=== PATIENT | male | born 1955 | race Caucasian/White ===

== ENCOUNTER 2018-05-24 22:15 | Emergency (ER) | payer MEDICARE, OTHER ==
[~2018-05-24] VITALS: Ht 167.6 cm; Wt 90.7 kg
[2018-05-24 23:53] VITALS: BP 108/64
[2018-05-25 00:12] LABS: APPEARANCE,URINE CLEAR; BILIRUBIN, URINE NEGATIVE (NEGATIVE); COLOR,URINE PALE YELLOW; GLUCOSE, URINE (UA) NEGATIVE (NEGATIVE); KETONES,URINE NEGATIVE (NEGATIVE); NITRITE,URINE NEGATIVE (NEGATIVE); PH,URINE 7 (4.5-8.0); PROTEIN,URINE NEGATIVE (NEGATIVE); UROBILINOGEN,URINE NORMAL MG/DL (0.0-1.0)
[2018-05-25 00:17] LABS: LEUKOCYTE ESTERASE ,URINE NEGATIVE (NEGATIVE)
--- NOTE | 2018-05-25 02:32 | Emergency Room Report ---
History of Present Illness General Chief Complaint: Male Urogenital Problems Source: Patient, Medical Record, EMS Present Illness HPI This is a 62-year-old male who has a psych history. He also history of asthma. Patient presents with chief complaint of abdominal pain and painful urination. Onset yesterday. He said he had a couple episode vomiting. No diarrhea or bowel movement today. He said yesterday hurts when he urinates. Denies any fever or chills. Pain is to the side and crampy in nature. Allergies: Coded Allergies: CHLORPROMAZINE (Unverified Allergy, Unknown, 05/24/18) CLOZAPINE (Unverified Allergy, Unknown, 05/24/18) DIVALPROEX SODIUM (Unverified Allergy, Unknown, 05/24/18) HALOPERIDOL (Unverified Allergy, Unknown, 05/24/18) SERTRALINE (Unverified Allergy, Unknown, 05/24/18) Patient History Past Medical History: see triage record, old chart reviewed, asthma, psych hx Past Surgical History: other Pertinent Family History: none Social History: Denies: smoking Immunizations: other Reviewed Nursing Documentation: PMH: Agreed; PSxH: Agreed Nursing Documentation-PMH Past Medical History: No History, Except For Hx Asthma: Yes Hx Seizures: Yes Review of Systems Eye: Denies: eye pain, blurred vision ENT: Denies: ear pain, nose congestion, throat swelling Respiratory: Denies: cough, shortness of breath Cardiovascular: Denies: chest pain, palpitations Gastrointestinal: Reports: abdominal pain, nausea, vomiting; Denies: diarrhea Musculoskeletal: Denies: back pain, joint pain Skin: Denies: rash Neurological: Denies: headache, numbness Endocrine: Denies: increased thirst, increased urine Hematologic/Lymphatic: Denies: easy bruising All Other Systems: negative except mentioned in HPI Physical Exam Vital Signs Date Time Temp Pulse Resp B/P (MAP) Pulse Ox O2 Delivery O2 Flow Rate FiO2 05/24/18 22:02 98.2 98 18 108/64 97 Room Air 98.2 vitals normal Sp02 EP Interpretation: reviewed, normal General Appearance: well appearing, no apparent distress, alert Head: normocephalic, atraumatic Eyes: bilateral eye PERRL, bilateral eye EOMI ENT: hearing grossly normal, normal pharynx Neck: full range of motion, supple, no meningismus Respiratory: chest non-tender, lungs clear, normal breath sounds Cardiovascular #1: regular rate, rhythm, no murmur Gastrointestinal: normal bowel sounds, non tender, no mass, no organomegaly, no bruit, non-distended Musculoskeletal: back normal, gait/station normal, normal range of motion Psychiatric: mood/affect normal Skin: warm/dry Medical Decision Making Diagnostic Impression: Primary Impression: Enteritis ER Course Patient with abdominal pain and vomiting. Most likely had enteritis from a viral infection. He felt better now. No longer vomiting. No urinary tract infection. We'll discharge back to half-way. CT/MRI/US Diagnostic Results CT/MRI/US Diagnostic Results : Imaging Test Ordered: CT abdomen and pelvis Impression Read by radiologist. Fluid in the colon. No inflammatory processes. No free air. Last Vital Signs Date Time Temp Pulse Resp B/P (MAP) Pulse Ox O2 Delivery O2 Flow Rate FiO2 05/24/18 23:53 98.2 98 18 108/64 97 Room Air 98.2 Status: improved Disposition: XFER SNF Condition: Stable Additional Instructions: Increase fluid. Follow-up with your doctor in 7 days. Return of worse. SALLIE HENDERSON M.D. May 25, 2018 02:32
[2018-05-25 02:53] VITALS: BP 126/64
[2018-05-25 03:00] VITALS: BP 126/64
--- NOTE | 2018-05-25 10:26 | Diagnostic Imaging Report ---
Indication: Abdominal pain Technique: Noncontrast CT of the abdomen and pelvis utilizing automated exposure control. Axial, sagittal and coronal reformats presented. CT dose: Total DLP 951.72 mGycm; CTDI vol 16.58 mGy Comparison: None Findings: Please note that evaluation of the abdominal and pelvic viscera and vascular structures is limited without the use of intravenous and oral contrast. Within these limitations the following observations are made: Emphysematous changes noted in the lower lungs with some small pneumatoceles. No focal airspace consolidation suggest pneumonia. No pleural effusion or pneumothorax. Heart size within normal limits. There is a small hiatal hernia. Noncontrast evaluation of the liver, gallbladder, spleen, adrenal glands and pancreas is grossly unremarkable. Multiple low-attenuation lesions are noted in the bilateral kidneys represent cysts. No evidence of hydronephrosis or urinary tract stone bilaterally. Bladder is grossly unremarkable. Some central calcifications noted in the prostate. There is no free intraperitoneal air or fluid. No evidence of bowel obstruction. Appendix is normal. Some fluid attenuation is noted within the colon which is nonspecific but may potentially be related to a diarrheal illness. There is a small fat-containing umbilical hernia and small bilateral fat-containing inguinal hernias, right greater than left. Abdominal aorta appears normal in caliber with scattered atherosclerotic calcifications. No appreciable pathologically enlarged adenopathy. There is multilevel degenerative change of the thoracolumbar spine. There is bilateral spondylolysis at L5 which appears chronic. IMPRESSION: Limited exam without intravenous and oral contrast. Within these limitations: * No evidence of hydronephrosis, perinephric stranding or definite urinary tract stone bilaterally. * Multiple low-density lesions in the kidneys possibly representing simple. Evaluation is limited without contrast. Recommend further evaluation with contrast-enhanced exam or renal ultrasound. * Fluid noted in portions of the colon. Findings nonspecific but may potentially be related to a diarrheal illness. Correlate clinically. * Emphysematous changes noted in the visualized lung bases. * Small hiatal hernia. Additional incidental findings as above. This corresponds with the statrad preliminary report. The CT scanner at [facility] is accredited by the [employer] and the scans are performed using protocols designed to limit radiation exposure to as low as reasonably achievable to attain images of sufficient resolution adequate for diagnostic evaluation.
[2018-05-26] MEDS ORDERED: ZOFRAN4 MG ORAL (06:45)
== END 2018-05-25 03:00 ==
LOC: EDBD 22:15 → EMR 23:55
DX: K52.9 Noninfective gastroenteritis and colitis, unspecified (principal); J45.909 Unspecified asthma, uncomplicated; Z88.8 Allergy status to other drugs, medicaments and biological substances
CPT/HCPCS: 74176; 81003; 99284

== ENCOUNTER 2018-05-26 04:06 | Emergency (ER) | payer MEDICARE, OTHER ==
[~2018-05-26] VITALS: Ht 177.8 cm; Wt 86.2 kg
--- NOTE | 2018-05-26 04:16 | Emergency Room Report ---
History of Present Illness General Chief Complaint: Nausea Source: Patient Present Illness HPI Is a 62-year-old male with psychiatric history. [facility] He presents with chief complaint of vomiting. He was here yesterday and CT scan showed enteritis. No evidence of any infection. He is not getting better. He thinks that the poisoning his food. Denies any diarrhea. Some mild crampy pain. [place] weak. Denies any other complaint. Allergies: Coded Allergies: CHLORPROMAZINE (Unverified Allergy, Unknown, 05/24/18) CLOZAPINE (Unverified Allergy, Unknown, 05/24/18) DIVALPROEX SODIUM (Unverified Allergy, Unknown, 05/24/18) HALOPERIDOL (Unverified Allergy, Unknown, 05/24/18) SERTRALINE (Unverified Allergy, Unknown, 05/24/18) Patient History Past Medical History: see triage record, old chart reviewed Past Surgical History: none Pertinent Family History: none Social History: Denies: smoking Immunizations: other Reviewed Nursing Documentation: PMH: Agreed; PSxH: Agreed Nursing Documentation-PMH Hx Asthma: Yes Hx Seizures: Yes Review of Systems Eye: Denies: eye pain, blurred vision ENT: Denies: ear pain, nose congestion, throat swelling Respiratory: Denies: cough, shortness of breath Cardiovascular: Denies: chest pain, palpitations Gastrointestinal: Reports: abdominal pain, nausea, vomiting; Denies: diarrhea Musculoskeletal: Denies: back pain, joint pain Skin: Denies: rash Neurological: Denies: headache, numbness Endocrine: Denies: increased thirst, increased urine Hematologic/Lymphatic: Denies: easy bruising All Other Systems: negative except mentioned in HPI Physical Exam Vital Signs Date Time Temp Pulse Resp B/P (MAP) Pulse Ox O2 Delivery O2 Flow Rate FiO2 05/26/18 04:07 97.5 78 16 129/88 96 Room Air 97.5 vitals unremarkable Sp02 EP Interpretation: reviewed, normal General Appearance: well appearing, no apparent distress, alert Head: normocephalic, atraumatic Eyes: bilateral eye PERRL, bilateral eye EOMI ENT: hearing grossly normal, normal pharynx Neck: full range of motion, supple, no meningismus Respiratory: chest non-tender, lungs clear, normal breath sounds Cardiovascular #1: regular rate, rhythm, no murmur Gastrointestinal: non tender, no mass, no organomegaly, no bruit, non-distended , abnormal bowel sounds Musculoskeletal: back normal, gait/station normal, normal range of motion Psychiatric: mood/affect normal Skin: warm/dry Medical Decision Making Diagnostic Impression: Primary Impression: Nausea and vomiting in adult patient Additional Impression: Acute hyponatremia ER Course Patient presents with vomiting. He insists that he is being poisoned. Labs unremarkable except for some low sodium. IV fluid given. He is much calmer after Ativan. No evidence of any obstruction. CT scan show fluid in the colon probably indicating an enteritis. He is otherwise stable. No vomiting here. We'll discharge back to jail. Last Vital Signs Date Time Temp Pulse Resp B/P (MAP) Pulse Ox O2 Delivery O2 Flow Rate FiO2 05/26/18 04:07 97.5 78 16 129/88 96 Room Air 97.5 Status: improved Disposition: XFER SNF Condition: Stable Scripts Ondansetron (Zofran) 4 Mg Tablet 4 MG ORAL Q6H PRN for Nausea & Vomiting, #10 TAB 0 Refills Prov: SALLIE HENDERSON M.D. 05/26/18 Patient Instructions: Nausea and Vomiting, Adult Additional Instructions: Follow-up with your doctor in 7 days. You do not have poisoning and his system. This is most likely just a stomach bug. Return if symptom worsen. SALLIE HENDERSON M.D. May 26, 2018 04:16
[2018-05-26 04:50] LABS: BASOPHILS % (AUTO) 1.4 % (0.0-2.0); EOSINOPHILS % (AUTO) 4.1 % (0.0-3.0); HEMATOCRIT 34.8 % (42.0-52.0); HEMOGLOBIN 12.3 G/DL (14.2-18.0); LYMPHOCYTES % (AUTO) 19.7 % (20.0-45.0); MEAN CORPUSCULAR VOLUME 87 FL (80-99); MONOCYTES % (AUTO) 9.3 % (1.0-10.0); NEUTROPHILS % (AUTO) 65.4 % (45.0-75.0); PLATELET COUNT 287 K/UL (150-450); RED BLOOD COUNT 4.01 M/UL (4.70-6.10); RED CELL DISTRIBUTION WIDTH 11.5 % (11.6-14.8); WHITE BLOOD COUNT 9.6 K/UL (4.8-10.8)
[2018-05-26] MEDS ORDERED: LORazepam Inj 2mg/ml 1ml ONE (05:08)
[2018-05-26] MEDS ORDERED: LORazepam Inj 2mg/ml 1ml IV ONE (05:15)
[2018-05-26 06:39] LABS: ANION GAP 12 mmol/L (5-15); BLOOD UREA NITROGEN 13 mg/dL (7-18); CALCIUM 8.4 MG/DL (8.5-10.1); CARBON DIOXIDE 21 MMOL/L (21-32); CHLORIDE 90 MMOL/L (98-107); CREATININE 1.3 MG/DL (0.55-1.30); POTASSIUM 3.3 MMOL/L (3.5-5.1); SODIUM 123 MMOL/L (136-145)
[2018-05-26 06:44] LABS: ALANINE AMINOTRANSFERASE 27 U/L (12-78); ALBUMIN/GLOBULIN RATIO 1.1 (1.0-2.7); ALKALINE PHOSPHATASE 82 U/L (46-116); ASPARTATE AMINO TRANSFERASE 22 U/L (15-37); BILIRUBIN,TOTAL 0.4 MG/DL (0.2-1.0)
[2018-05-26] MEDS ORDERED: ZOFRAN4 MG ORAL (06:45)
[2018-05-26 07:27] VITALS: BP 126/83
[2018-05-26 08:07] VITALS: BP 126/83
== END 2018-05-26 08:26 ==
LOC: EDBD 04:06 → EDUNIT# 04:06 → EMR 04:24
DX: E87.1 Hypo-osmolality and hyponatremia (principal); R11.2 Nausea with vomiting, unspecified; J45.909 Unspecified asthma, uncomplicated; Z88.8 Allergy status to other drugs, medicaments and biological substances
CPT/HCPCS: 36415; 80053; 83690; 85025; 99283; J2405

== ENCOUNTER 2018-06-03 20:20 | Inpatient (IN) | payer MEDICARE, OTHER ==
[~2018-06-03] VITALS: Ht 175.3 cm; Wt 88.5 kg
[~2018-06-03 20:20] MED LIST: ZOFRAN4 MG ORAL
[2018-06-03] MEDS ORDERED: Sodium Chloride 500ML 500 ML IV ONE (20:30)
[2018-06-03] MEDS ORDERED: LORAZEPAM0.5 MG ORAL (20:33)
[2018-06-03] MEDS ORDERED: ABILIFY10 MG ORAL (20:33)
[2018-06-03] MEDS ORDERED: TEMAZEPAM7.5 MG ORAL (20:33)
[2018-06-03] MEDS ORDERED: ALBUTEROL2.5 MG/3 M INH (20:33)
[2018-06-03] MEDS ORDERED: IBUPROFEN600 MG ORAL (20:33)
[2018-06-03 20:50] VITALS: BP 122/64
--- NOTE | 2018-06-03 21:03 | Emergency Room Report ---
History of Present Illness General Chief Complaint: Abdominal Pain Source: Patient, Medical Record Present Illness HPI This is a 62-year-old male with a psych history. He presents with chief complaint abdominal pain with vomiting. This is a ongoing problem for a couple weeks now. I have seen him twice before. CT scan initially showed enteritis. Lab was unremarkable except for hyponatremia. Initially claimed he was poisoned by botulism. Now he said that [facility] was putting rat feces in his food. Denies any diarrhea. Nothing made it better. Nothing made it worse. Vomiting is nonbloody and nonbilious. Once or twice a day. Abdominal cramps. Denies fever or chills. Denies any suicidal thoughts or homicidal thought. Allergies: Coded Allergies: CHLORPROMAZINE (Unverified Allergy, Unknown, 05/24/18) CLOZAPINE (Unverified Allergy, Unknown, 05/24/18) DIVALPROEX SODIUM (Unverified Allergy, Unknown, 05/24/18) HALOPERIDOL (Unverified Allergy, Unknown, 05/24/18) SERTRALINE (Unverified Allergy, Unknown, 05/24/18) Patient History Past Medical History: see triage record, old chart reviewed, psych hx Past Surgical History: other Pertinent Family History: none Social History: Denies: alcohol use Immunizations: other Reviewed Nursing Documentation: PMH: Agreed; PSxH: Agreed Nursing Documentation-PMH Hx Asthma: Yes Hx COPD: Yes Hx Gastrointestinal Problems: Yes - GERD History Of Psychiatric Problem: Yes - bipolar Hx Seizures: Yes Review of Systems Eye: Denies: eye pain, blurred vision ENT: Denies: ear pain, nose congestion, throat swelling Respiratory: Denies: cough, shortness of breath Cardiovascular: Denies: chest pain, palpitations Gastrointestinal: Reports: abdominal pain, nausea, vomiting; Denies: diarrhea Musculoskeletal: Denies: back pain, joint pain Skin: Denies: rash Neurological: Denies: headache, numbness Endocrine: Denies: increased thirst, increased urine Hematologic/Lymphatic: Denies: easy bruising All Other Systems: negative except mentioned in HPI Physical Exam Vital Signs Date Time Temp Pulse Resp B/P (MAP) Pulse Ox O2 Delivery O2 Flow Rate FiO2 06/03/18 20:22 98.3 83 18 122/64 99 Room Air 98.2 vitals normal Sp02 EP Interpretation: reviewed, normal General Appearance: well appearing, no apparent distress, alert Head: normocephalic, atraumatic Eyes: bilateral eye PERRL, bilateral eye EOMI ENT: hearing grossly normal, normal pharynx Neck: full range of motion, supple, no meningismus Respiratory: chest non-tender, lungs clear, normal breath sounds Cardiovascular #1: regular rate, rhythm, no murmur Gastrointestinal: normal bowel sounds, non tender, no mass, no organomegaly, no bruit, non-distended Musculoskeletal: back normal, gait/station normal, normal range of motion Psychiatric: mood/affect normal Skin: warm/dry Medical Decision Making Diagnostic Impression: Primary Impression: Hyponatremia Additional Impression: Nausea & vomiting Qualified Codes: R11.2 - Nausea with vomiting, unspecified ER Course Patient presents with persistent nausea and vomiting. He simply stable but show hyponatremia. This may be a psychogenic issue with increase free water intake. We'll give him saline and admit for further workup. I contacted Dr. Villafuerte and Tiffany for admission. Lab Results Impression labs with hyponatremia Last Vital Signs Date Time Temp Pulse Resp B/P (MAP) Pulse Ox O2 Delivery O2 Flow Rate FiO2 06/03/18 20:22 98.3 83 18 122/64 99 Room Air 98.2 Status: improved Disposition: ADMITTED INPATIENT Condition: Serious Referrals: Mansoor Villafuerte DO (PCP) SALLIE HENDERSON M.D. Jun 03, 2018 21:03
[2018-06-03 21:05] LABS: APPEARANCE,URINE CLEAR; BASOPHILS % (AUTO) 1.6 % (0.0-2.0); BILIRUBIN, URINE NEGATIVE (NEGATIVE); COLOR,URINE PALE YELLOW; EOSINOPHILS % (AUTO) 6.5 % (0.0-3.0); GLUCOSE, URINE (UA) NEGATIVE (NEGATIVE); HEMATOCRIT 34.3 % (42.0-52.0); HEMOGLOBIN 11.5 G/DL (14.2-18.0); KETONES,URINE NEGATIVE (NEGATIVE); LEUKOCYTE ESTERASE ,URINE NEGATIVE (NEGATIVE); LYMPHOCYTES % (AUTO) 23.4 % (20.0-45.0); MEAN CORPUSCULAR VOLUME 88 FL (80-99); MONOCYTES % (AUTO) 7.8 % (1.0-10.0); NEUTROPHILS % (AUTO) 60.7 % (45.0-75.0); NITRITE,URINE NEGATIVE (NEGATIVE); PH,URINE 7 (4.5-8.0); PLATELET COUNT 241 K/UL (150-450); PROTEIN,URINE NEGATIVE (NEGATIVE); RED BLOOD COUNT 3.91 M/UL (4.70-6.10); RED CELL DISTRIBUTION WIDTH 11.8 % (11.6-14.8); UROBILINOGEN,URINE NORMAL MG/DL (0.0-1.0); WHITE BLOOD COUNT 8.4 K/UL (4.8-10.8)
[2018-06-03 21:28] LABS: ANION GAP 11 mmol/L (5-15); BLOOD UREA NITROGEN 14 mg/dL (7-18); CALCIUM 8.5 MG/DL (8.5-10.1); CARBON DIOXIDE 24 MMOL/L (21-32); CHLORIDE 90 MMOL/L (98-107); CREATININE 1.4 MG/DL (0.55-1.30); POTASSIUM 3.6 MMOL/L (3.5-5.1); SODIUM 124 MMOL/L (136-145)
[2018-06-03 21:32] LABS: ALANINE AMINOTRANSFERASE 37 U/L (12-78); ALBUMIN 3.9 G/DL (3.4-5.0); ALBUMIN/GLOBULIN RATIO 1.1 (1.0-2.7); ALKALINE PHOSPHATASE 95 U/L (46-116); ASPARTATE AMINO TRANSFERASE 26 U/L (15-37); BILIRUBIN,TOTAL 0.4 MG/DL (0.2-1.0)
[2018-06-03] MEDS ORDERED: Zolpidem 5mg tab ORAL PRN (22:15)
[2018-06-03] MEDS ORDERED: Miralax 17gm pkt ORAL PRN (22:15)
[2018-06-03] MEDS ORDERED: Mylanta II UD 30ml ORAL PRN (22:15)
[2018-06-03 22:30] VITALS: BP 140/72
[2018-06-03 22:35] VITALS: BP 140/72
[2018-06-03] MEDS: LORazepam Inj 2mg/ml 1ml IV PRN (23:02)
[2018-06-04 01:02] LABS: APPEARANCE,URINE CLEAR; BILIRUBIN, URINE NEGATIVE (NEGATIVE); COLOR,URINE PALE YELLOW; GLUCOSE, URINE (UA) NEGATIVE (NEGATIVE); KETONES,URINE NEGATIVE (NEGATIVE); LEUKOCYTE ESTERASE ,URINE NEGATIVE (NEGATIVE); NITRITE,URINE NEGATIVE (NEGATIVE); PH,URINE 7 (4.5-8.0); PROTEIN,URINE NEGATIVE (NEGATIVE); UROBILINOGEN,URINE NORMAL MG/DL (0.0-1.0)
[2018-06-04 04:00] VITALS: BP 117/65
[2018-06-04 08:00] VITALS: BP 108/65
[2018-06-04 08:07] LABS: BASOPHILS % (AUTO) 1.7 % (0.0-2.0); EOSINOPHILS % (AUTO) 7.7 % (0.0-3.0); HEMOGLOBIN 12.1 G/DL (14.2-18.0); LYMPHOCYTES % (AUTO) 27.2 % (20.0-45.0); MEAN CORPUSCULAR VOLUME 89 FL (80-99); MONOCYTES % (AUTO) 11.3 % (1.0-10.0); NEUTROPHILS % (AUTO) 52.2 % (45.0-75.0); PLATELET COUNT 214 K/UL (150-450); RED BLOOD COUNT 4.04 M/UL (4.70-6.10)
[2018-06-04] MEDS: ARIPiprazole 10mg tab ORAL SCH (08:18)
[2018-06-04 09:28] LABS: ALANINE AMINOTRANSFERASE 30 U/L (12-78); ALBUMIN 3.1 G/DL (3.4-5.0); ALKALINE PHOSPHATASE 83 U/L (46-116); ANION GAP 10 mmol/L (5-15); ASPARTATE AMINO TRANSFERASE 22 U/L (15-37); BILIRUBIN,TOTAL 0.6 MG/DL (0.2-1.0); BLOOD UREA NITROGEN 14 mg/dL (7-18); CALCIUM 8.3 MG/DL (8.5-10.1); CARBON DIOXIDE 21 MMOL/L (21-32); CHLORIDE 104 MMOL/L (98-107); CHOLESTEROL 168 MG/DL (< 200); CREATININE 1.4 MG/DL (0.55-1.30); HDL CHOLESTEROL 43 MG/DL (40-60); POTASSIUM 3.9 MMOL/L (3.5-5.1); SODIUM 135 MMOL/L (136-145); TRIGLYCERIDES 156 MG/DL (30-150)
[2018-06-04 11:49] VITALS: BP 105/63
[2018-06-04] MEDS: LORazepam Inj 2mg/ml 1ml IV PRN (12:05)
--- NOTE | 2018-06-04 13:27 | Consultation ---
Consult Note Consult Note asked to eval for low Na and elevated Cr This is a 62-year-old male with a psych history. He presents with chief complaint abdominal pain with vomiting. This is a ongoing problem for a couple weeks now. I have seen him twice before. CT scan initially showed enteritis. Lab was unremarkable except for hyponatremia. Initially claimed he was poisoned by botulism. Now he said that [facility] was putting rat feces in his food. Denies any diarrhea. Nothing made it better. Nothing made it worse. Vomiting is nonbloody and nonbilious. Once or twice a day. Abdominal cramps. Denies fever or chills. Denies any suicidal thoughts or homicidal thought. Coded Allergies: CHLORPROMAZINE (Unverified Allergy, Unknown, 05/24/18) CLOZAPINE (Unverified Allergy, Unknown, 05/24/18) DIVALPROEX SODIUM (Unverified Allergy, Unknown, 05/24/18) HALOPERIDOL (Unverified Allergy, Unknown, 05/24/18) SERTRALINE (Unverified Allergy, Unknown, 05/24/18) Hx Asthma: Yes Hx COPD: Yes Hx Gastrointestinal Problems: Yes - GERD History Of Psychiatric Problem: Yes - bipolar Hx Seizures: Yes interviewed, examined states that had abdominal pain and nause and vomiting Assessment/Plan HypoNatremia, Depletional, supported by low U Na Abdominal pain, Gastritis Renal failure ? Chronic h/o Psych and Sz NS Gastric support Per orders Gamal Garcia MD Jun 04, 2018 13:27
--- NOTE | 2018-06-04 13:51 | Consultation ---
History of Present Illness General Date patient seen: Jun 04, 2018 Chief Complaint: Abdominal Pain Present Illness HPI 62-year-old male with a psych history presented with chief complaint of abdominal pain with vomiting. This is a ongoing problem for a couple weeks now. . CT scan initially showed enteritis. He said that [facility] was putting rat feces in his food. Denies any diarrhea. Vomiting is nonbloody and nonbilious. Once or twice a day. Abdominal cramps. Denies fever or chills. Denies any suicidal thoughts or homicidal thought. His Na was very low. He is admitted for further work up. Allergies: Coded Allergies: CHLORPROMAZINE (Unverified Allergy, Unknown, 05/24/18) CLOZAPINE (Unverified Allergy, Unknown, 05/24/18) DIVALPROEX SODIUM (Unverified Allergy, Unknown, 05/24/18) HALOPERIDOL (Unverified Allergy, Unknown, 05/24/18) SERTRALINE (Unverified Allergy, Unknown, 05/24/18) Medication History Scheduled Aripiprazole* (Abilify*), 10 MG ORAL DAILY, (Reported) Ibuprofen* (Motrin*), 600 MG ORAL FOUR TIMES A DAY, (Reported) Lorazepam* (Lorazepam*), 0.5 MG ORAL THREE TIMES A DAY, (Reported) Temazepam (Temazepam*), 7.5 MG ORAL BEDTIME, (Reported) Scheduled PRN Albuterol Sulfate* (Albuterol Sulfate Hhn*), 3 ML INH Q4H PRN for Shortness of Breath, (Reported) Ondansetron (Zofran), 4 MG ORAL Q6H PRN for Nausea & Vomiting Patient History Healthcare decision maker Resuscitation status Full Code Advanced Directive on File Past Medical/Surgical History Past Medical/Surgical History: (1) Psychosis Review of Systems All Other Systems: negative except mentioned in HPI Physical Exam General Appearance: WD/WN Lines, tubes and drains: peripheral HEENT: normocephalic, atraumatic, anicteric Respiratory/Chest: chest wall non-tender, lungs clear Cardiovascular/Chest: normal peripheral pulses, normal rate, no JVD Genitourinary/Rectal: normal genital exam Extremities: normal range of motion Last 24 Hour Vital Signs Date Time Temp Pulse Resp B/P (MAP) Pulse Ox O2 Delivery O2 Flow Rate FiO2 06/04/18 11:49 98.7 62 18 105/63 (77) 99 98.7 06/04/18 09:00 Room Air 06/04/18 08:00 97.4 67 19 108/65 (79) 98 97.4 06/04/18 04:00 97.4 59 19 117/65 (82) 97 97.4 06/04/18 00:24 Room Air 06/03/18 22:35 98.0 66 21 140/72 (94) 100 98.0 06/03/18 22:30 98.2 66 21 140/72 100 Room Air 208.8 06/03/18 22:30 98.2 66 21 140/72 100 Room Air 98.2 06/03/18 20:50 98.2 83 18 122/64 99 Room Air 98.2 06/03/18 20:22 98.3 83 18 122/64 99 Room Air 98.2 Intake and Output 06/03/18 06/04/18 19:00 07:00 Intake Total 1100 ml Output Total 1300 ml Balance -200 ml Intake IV Total 1100 ml Output Urine Total 1300 ml # Voids 1 Laboratory Tests Test 06/03/18 20:50 06/03/18 23:25 06/04/18 07:25 White Blood Count 8.4 K/UL (4.8-10.8) 6.0 K/UL (4.8-10.8) Red Blood Count 3.91 M/UL (4.70-6.10) L 4.04 M/UL (4.70-6.10) L Hemoglobin 11.5 G/DL (14.2-18.0) L 12.1 G/DL (14.2-18.0) L Hematocrit 34.3 % (42.0-52.0) L 36.0 % (42.0-52.0) L Mean Corpuscular Volume 88 FL (80-99) 89 FL (80-99) Mean Corpuscular Hemoglobin 29.5 PG (27.0-31.0) 29.9 PG (27.0-31.0) Mean Corpuscular Hemoglobin Concent 33.6 G/DL (32.0-36.0) 33.5 G/DL (32.0-36.0) Red Cell Distribution Width 11.8 % (11.6-14.8) 12.0 % (11.6-14.8) Platelet Count 241 K/UL (150-450) 214 K/UL (150-450) Mean Platelet Volume 5.3 FL (6.5-10.1) L 5.3 FL (6.5-10.1) L Neutrophils (%) (Auto) 60.7 % (45.0-75.0) 52.2 % (45.0-75.0) Lymphocytes (%) (Auto) 23.4 % (20.0-45.0) 27.2 % (20.0-45.0) Monocytes (%) (Auto) 7.8 % (1.0-10.0) 11.3 % (1.0-10.0) H Eosinophils (%) (Auto) 6.5 % (0.0-3.0) H 7.7 % (0.0-3.0) H Basophils (%) (Auto) 1.6 % (0.0-2.0) 1.7 % (0.0-2.0) Urine Color Pale yellow Pale yellow Urine Appearance Clear Clear Urine pH 7 (4.5-8.0) 7 (4.5-8.0) Urine Specific [place] 1.005 (1.005-1.035) 1.005 (1.005-1.035) Urine Protein Negative (NEGATIVE) Negative (NEGATIVE) Urine Glucose (UA) Negative (NEGATIVE) Negative (NEGATIVE) Urine Ketones Negative (NEGATIVE) Negative (NEGATIVE) Urine Occult Blood Negative (NEGATIVE) Negative (NEGATIVE) Urine Nitrite Negative (NEGATIVE) Negative (NEGATIVE) Urine Bilirubin Negative (NEGATIVE) Negative (NEGATIVE) Urine Urobilinogen Normal MG/DL (0.0-1.0) Normal MG/DL (0.0-1.0) Urine Leukocyte Esterase Negative (NEGATIVE) Negative (NEGATIVE) Sodium Level 124 MMOL/L (136-145) L 135 MMOL/L (136-145) #L Potassium Level 3.6 MMOL/L (3.5-5.1) 3.9 MMOL/L (3.5-5.1) Chloride Level 90 MMOL/L (98-107) L 104 MMOL/L (98-107) Carbon Dioxide Level 24 MMOL/L (21-32) 21 MMOL/L (21-32) Anion Gap 11 mmol/L (5-15) 10 mmol/L (5-15) Blood Urea Nitrogen 14 mg/dL (7-18) 14 mg/dL (7-18) Creatinine 1.4 MG/DL (0.55-1.30) H 1.4 MG/DL (0.55-1.30) H Estimat Glomerular Filtration Rate 51.7 mL/min (>60) 51.7 mL/min (>60) Glucose Level 104 MG/DL (74-106) 84 MG/DL (74-106) Calcium Level 8.5 MG/DL (8.5-10.1) 8.3 MG/DL (8.5-10.1) L Total Bilirubin 0.4 MG/DL (0.2-1.0) 0.6 MG/DL (0.2-1.0) Aspartate Amino Transf (AST/SGOT) 26 U/L (15-37) 22 U/L (15-37) Alanine Aminotransferase (ALT/SGPT) 37 U/L (12-78) 30 U/L (12-78) Alkaline Phosphatase 95 U/L (46-116) 83 U/L (46-116) Total Protein 7.4 G/DL (6.4-8.2) 6.2 G/DL (6.4-8.2) L Albumin 3.9 G/DL (3.4-5.0) 3.1 G/DL (3.4-5.0) L Globulin 3.5 g/dL 3.1 g/dL Albumin/Globulin Ratio 1.1 (1.0-2.7) 1.0 (1.0-2.7) Lipase 220 U/L (73-393) Urine RBC 0 /HPF (0 - 0) Urine WBC 0 /HPF (0 - 0) Urine Squamous Epithelial Cells Few /LPF (NONE/OCC) Urine Bacteria None /HPF (NONE) Urine Osmolality 69 mOsm/kg (429-449) L Urine Random Sodium 20 mmol/L (20-110) Magnesium Level 2.3 MG/DL (1.8-2.4) Triglycerides Level 156 MG/DL (30-150) H Cholesterol Level 168 MG/DL (< 200) LDL Cholesterol 112 mg/dL (<100) H HDL Cholesterol 43 MG/DL (40-60) Cholesterol/HDL Ratio 3.9 (3.3-4.4) Thyroid Stimulating Hormone (TSH) 4.643 uiU/mL (0.358-3.740) Height (Feet): 5 Height (Inches): 9.00 Weight (Pounds): 184 Medications Current Medications Medications (Trade) Dose Ordered Sig/Cori Route PRN Reason Start Time Stop Time Status Last Admin Dose Admin Acetaminophen (Tylenol) 650 mg Q4H PRN ORAL fever 06/03/18 22:15 07/03/18 22:14 Aripiprazole (Abilify) 10 mg DAILY ORAL 06/04/18 09:00 07/04/18 08:59 06/04/18 08:18 Dextrose (Dextrose 50%) STAT PRN IV Hypoglycemia 06/03/18 22:15 07/03/18 22:14 Docusate Sodium (Colace) 100 mg THREE TIMES A DAY ORAL 06/04/18 18:00 07/04/18 17:59 Famotidine (Pepcid) 40 mg ONCE ORAL 06/04/18 13:34 06/04/18 14:34 Lorazepam (Ativan 2mg/ml 1ml) 0.5 mg Q4H PRN IV For Anxiety 06/03/18 22:15 06/10/18 22:14 06/04/18 12:05 Morphine Sulfate (Morphine Sulfate) 1 mg EVERY 4 HOURS PRN IVP For Pain 06/03/18 22:15 06/10/18 22:14 Ondansetron HCl (Zofran) 4 mg Q6H PRN IVP Nausea & Vomiting 06/03/18 22:15 07/03/18 22:14 Pantoprazole (Protonix) 40 mg EVERY 12 HOURS ORAL 06/04/18 21:00 07/04/18 20:59 Polyethylene Glycol (Miralax) 17 gm HSPRN PRN ORAL Constipation 06/03/18 22:15 07/03/18 22:14 Sodium Chloride 1,000 ml @ 75 mls/hr [id number] IV 06/03/18 22:15 07/03/18 22:14 06/04/18 11:54 Zolpidem Tartrate (Ambien) 5 mg HSPRN PRN ORAL Insomnia 06/03/18 22:15 06/10/18 22:14 06/03/18 23:10 Assessment/Plan Problem List: (1) Nausea & vomiting ICD Codes: R11.2 - Nausea with vomiting, unspecified SNOMED: 44163423 Qualifiers: Qualified Codes: R11.2 - Nausea with vomiting, unspecified (2) Hyponatremia ICD Codes: E87.1 - Hypo-osmolality and hyponatremia SNOMED: 33506388 (3) Psychosis ICD Codes: F29 - Unspecified psychosis not due to a substance or known physiological condition SNOMED: 80069247 Assessment/Plan Hyponatremia w/u NS symptomatic treatment check electrolytes psych evaluation dvt prophylaxis. Murali Allen MD Jun 04, 2018 13:51
[2018-06-04] MEDS ORDERED: clonazePAM 0.5mg tab ORAL PRN (14:13)
[2018-06-04 16:00] VITALS: BP 134/69
[2018-06-04] MEDS ORDERED: Docusate 100mg cap ORAL SCH (18:00)
[2018-06-04] MEDS ORDERED: SYNTHROID25 MCG ORAL (18:24)
[2018-06-04] MEDS ORDERED: PROTONIX40 MG ORAL (18:24)
[2018-06-04] MEDS ORDERED: TOPIRAMATE100 MG ORAL (18:24)
[2018-06-04] MEDS ORDERED: ADVAIR HFA 115-12 GM INH (18:24)
[2018-06-04] MEDS ORDERED: PROSCAR5 MG ORAL (18:24)
[2018-06-04] MEDS ORDERED: TAMSULOSIN HCL0.4 MG ORAL (18:24)
[2018-06-04] MEDS ORDERED: CRANBERRY450 M3 PO (18:24)
[2018-06-04] MEDS ORDERED: SINGULAIR10 MG ORAL (18:24)
[2018-06-04] MEDS ORDERED: ACETAMINOPHEN325 M1 ORAL (18:28)
[2018-06-04] MEDS ORDERED: COLACE100 MG ORAL (18:28)
[2018-06-04] MEDS ORDERED: ZYPREXA5 MG ORAL (18:28)
[2018-06-04] MEDS ORDERED: TRAMADOL HCL50 MG ORAL (18:28)
[2018-06-04] MEDS ORDERED: RESTORIL15 MG ORAL (18:29)
[2018-06-04] MEDS ORDERED: KLONOPIN1 MG ORAL (18:29)
[2018-06-04] MEDS: Morphine Sulfate 2mg/ml Inj IVP PRN ×2 (19:37→23:35)
[2018-06-04 20:00] VITALS: BP 114/76
--- NOTE | 2018-06-04 21:15 | History and Physical Report ---
DATE OF ADMISSION: 06/03/2018 TIME: 1 p.m. CONSULTANTS: 1. Shantanu Way M.D. 2. Murali Allen M.D. 3. Gamal Garcia M.D. CHIEF COMPLAINT: Nausea, hyponatremia, and weakness. BRIEF HISTORY: The patient is a 62-year-old male from [facility], presented with above-mentioned diagnosis, sent to [place], diagnosed with the above, admitted to the medical floor for further treatment. Currently, calm in bed, slightly weak. Slight nauseous. No complaints otherwise. REVIEW OF SYSTEMS: No chest pain. No shortness of breath. Slight nausea. No vomiting or diarrhea. PAST MEDICAL HISTORY: Hyponatremia, weakness, asthma, and COPD. PAST SURGICAL HISTORY: Right leg. MEDICATIONS: Protonix, Colace, Pepcid, Abilify, Tylenol, MiraLAX, Zofran, Ambien, and Ativan. ALLERGY: Chlorpromazine, clozapine, divalproex, Haldol, and sertraline. SOCIAL HISTORY: No smoking. No alcohol. No intravenous drug abuse. FAMILY HISTORY: Noncontributory. PHYSICAL EXAMINATION: GENERAL: Calm in bed, oriented x2, in no acute distress. VITAL SIGNS: Temperature is 98 degrees, pulse 62, respirations 18, and blood pressure 105/63. CARDIOVASCULAR: No murmur. LUNGS: Distant and clear. ABDOMEN: Bowel sounds positive. Nontender. Nondistended. EXTREMITIES: Showed no cyanosis or edema. NEUROLOGIC: The patient moves all extremities, slightly weak. LABORATORY DATA: Labs at this time show hemoglobin 12.1, otherwise CBC is normal. BMP shows sodium 124 initially, now is 135, creatinine 1.4, and albumin 3.1. Triglycerides 156. TSH 4.6. Urinalysis is negative. ASSESSMENT: 1. Nausea and vomiting. 2. Hyponatremia. 3. Hypothyroid. 4. Weakness. 5. Asthma. 6. Anemia. 7. COPD. PLAN: 1. Antiemetic p.r.n. 2. OT/PT. 3. Dietary evaluation. 4. CBC and BMP in the morning. 5. IV fluids. 6. Dr. Allen, Dr. Way, Dr. Garcia, Dr. Loyd, and Dr. Ray to followup. 7. We will continue to follow the patient. Mansoor Villafuerte D.O. DR: DANDRE JOB#: [id number] CC:
[2018-06-04] MEDS: Tamsulosin 0.4mg cap ORAL SCH (22:38)
--- NOTE | 2018-06-04 22:45 | Consultation ---
DATE OF CONSULTATION: 06/04/2018 ENDOCRINOLOGY CONSULTATION CONSULTING PHYSICIAN: Bhupinder Ray M.D. REFERRING PHYSICIAN: Mansoor Villafuerte D.O. REASON FOR CONSULTATION: Hypothyroidism. HISTORY OF PRESENT ILLNESS: It is important to note that the patient is not cooperating with the interview. So, the history has been mostly obtained from review of the chart and medical records. The patient is a 62-year-old male with psychiatric history with chief complaint of abdominal pain, nausea, and vomiting, ongoing for the past couple of weeks, was claiming that the senior care staff were putting feces in his food. CT initially showed enteritis. Lab was unremarkable except for hyponatremia, which is alarming per Dr. Garcia, spray maker. PAST MEDICAL HISTORY: 1. Asthma. 2. COPD. 3. GERD. 4. Psychiatric issues, which is bipolar seizure disorder. 5. Hypothyroidism. MEDICATIONS: As an outpatient reviewed and reconciled. ALLERGIES TO MEDICATIONS: Chlorpromazine, clozapine, divalproex, haloperidol, and sertraline. FAMILY HISTORY: Noncontributory. SOCIAL HISTORY: From long-term facility. No smoking. No alcohol. No drug use. REVIEW OF SYSTEMS: The patient is not cooperating. PHYSICAL EXAMINATION: GENERAL: He is not in distress. VITAL SIGNS: Blood pressure is 134/69, pulse 80, temperature 98 degrees, and respiratory rate 19. HEENT: Pupils are equal and reactive to light. Sclerae anicteric. NECK: No JVD. No thyromegaly. LUNGS: Clear. HEART: Regular. ABDOMEN: Positive bowel sounds. EXTREMITIES: No edema. LABORATORY AND DIAGNOSTIC DATA: Sodium 135, potassium 3.9, chloride 104, bicarbonate 21, BUN 14, creatinine 1.4, and glucose of 84. Calcium 8.3. TSH of 4.6. DIAGNOSES: 1. Hyponatremia, most likely due to underlying psychiatric illness. 2. Hypothyroidism, on levothyroxine 25 mcg daily. 3. Psychiatric illness. 4. Abdominal pain, nausea, and vomiting. PLAN: GI will follow up for abdominal issues. Dr. Garcia is following for hyponatremia. We will increase the dose of levothyroxine from 25 mcg to 50 mcg, repeat TSH in 4 weeks in order to monitor adequacy of treatment, I will follow the patient. Thank you, Dr. Villafuerte, for the courtesy of this consultation. Bhupinder Ray M.D. DR: MARI JOB#: [id number] CC: CANDACE
[2018-06-05] VITALS (7 sets, daily range): BP systolic 82–124; BP diastolic 55–85
[2018-06-05] MEDS: clonazePAM 0.5mg tab ORAL PRN ×3 (00:15→12:25)
[2018-06-05] MEDS: Morphine Sulfate 2mg/ml Inj IVP PRN (04:10)
[2018-06-05 05:29] LABS: BASOPHILS % (AUTO) 1.5 % (0.0-2.0); EOSINOPHILS % (AUTO) 3.6 % (0.0-3.0); HEMATOCRIT 37.8 % (42.0-52.0); HEMOGLOBIN 12.5 G/DL (14.2-18.0); LYMPHOCYTES % (AUTO) 15.9 % (20.0-45.0); MEAN CORPUSCULAR VOLUME 90 FL (80-99); MONOCYTES % (AUTO) 7.9 % (1.0-10.0); NEUTROPHILS % (AUTO) 71.1 % (45.0-75.0); PLATELET COUNT 273 K/UL (150-450); RED BLOOD COUNT 4.21 M/UL (4.70-6.10); RED CELL DISTRIBUTION WIDTH 12.1 % (11.6-14.8); WHITE BLOOD COUNT 7.5 K/UL (4.8-10.8)
[2018-06-05 05:48] LABS: ALANINE AMINOTRANSFERASE 31 U/L (12-78); ALBUMIN 3.6 G/DL (3.4-5.0); ALBUMIN/GLOBULIN RATIO 1.1 (1.0-2.7); ALKALINE PHOSPHATASE 90 U/L (46-116); ANION GAP 9 mmol/L (5-15); ASPARTATE AMINO TRANSFERASE 17 U/L (15-37); BILIRUBIN,TOTAL 0.5 MG/DL (0.2-1.0); BLOOD UREA NITROGEN 15 mg/dL (7-18); CALCIUM 8.9 MG/DL (8.5-10.1); CARBON DIOXIDE 24 MMOL/L (21-32); CHLORIDE 115 MMOL/L (98-107); CREATININE 1.5 MG/DL (0.55-1.30); GAMMA GLUTAMYL TRANSPEPTIDASE 22 U/L (5-85); PHOSPHORUS 2.8 MG/DL (2.5-4.9); POTASSIUM 4.4 MMOL/L (3.5-5.1); SODIUM 148 MMOL/L (136-145)
--- NOTE | 2018-06-05 07:23 | General Progress Note ---
Assessment/Plan Problem List: (1) Hypothyroidism ICD Codes: E03.9 - Hypothyroidism, unspecified SNOMED: 03750479 (2) Hyponatremia ICD Codes: E87.1 - Hypo-osmolality and hyponatremia SNOMED: 23439051 (3) Psychosis ICD Codes: F29 - Unspecified psychosis not due to a substance or known physiological condition SNOMED: 68049303 (4) Nausea & vomiting ICD Codes: R11.2 - Nausea with vomiting, unspecified SNOMED: 92877148 Qualifiers: Qualified Codes: R11.2 - Nausea with vomiting, unspecified Assessment/Plan serum Na slightly on higher side now continue Levothyroxine 50 mcg daily repeat thyroid function in one month Subjective ROS Limited/Unobtainable: Yes Allergies: Coded Allergies: CHLORPROMAZINE (Unverified Allergy, Unknown, 05/24/18) CLOZAPINE (Unverified Allergy, Unknown, 05/24/18) DIVALPROEX SODIUM (Unverified Allergy, Unknown, 05/24/18) HALOPERIDOL (Unverified Allergy, Unknown, 05/24/18) SERTRALINE (Unverified Allergy, Unknown, 05/24/18) Subjective events noted Objective Last 24 Hour Vital Signs Date Time Temp Pulse Resp B/P (MAP) Pulse Ox O2 Delivery O2 Flow Rate FiO2 06/05/18 04:00 98.6 84 20 124/85 (98) 93 98.6 06/05/18 00:00 98.2 85 20 121/79 (93) 95 98.2 06/04/18 21:00 Room Air 06/04/18 20:00 99.1 86 21 114/76 (89) 95 99.1 06/04/18 16:00 98.0 80 19 134/69 (90) 99 98.0 06/04/18 11:49 98.7 62 18 105/63 (77) 99 98.7 06/04/18 09:00 Room Air 06/04/18 08:00 97.4 67 19 108/65 (79) 98 97.4 Intake and Output 06/04/18 06/05/18 19:00 07:00 Intake Total 1900 ml 300 ml Output Total 850 ml 2600 ml Balance 1050 ml -2300 ml Intake IV Total 900 ml 300 ml Other 1000 ml Output Urine Total 850 ml 2600 ml # Bowel Movements 1 Laboratory Tests 06/04/18 07:25: White Blood Count 6.0, Red Blood Count 4.04L, Hemoglobin 12.1L, Hematocrit 36.0L , Mean Corpuscular Volume 89, Mean Corpuscular Hemoglobin 29.9, Mean Corpuscular Hemoglobin Concent 33.5, Red Cell Distribution Width 12.0, Platelet Count 214, Mean Platelet Volume 5.3L, Neutrophils (%) (Auto) 52.2, Lymphocytes ( %) (Auto) 27.2, Monocytes (%) (Auto) 11.3H, Eosinophils (%) (Auto) 7.7H, Basophils (%) (Auto) 1.7, Sodium Level 135#L, Potassium Level 3.9, Chloride Level 104, Carbon Dioxide Level 21, Anion Gap 10, Blood Urea Nitrogen 14, Creatinine 1.4H, Estimat Glomerular Filtration Rate 51.7, Glucose Level 84, Calcium Level 8.3L, Magnesium Level 2.3, Total Bilirubin 0.6, Aspartate Amino Transf (AST/SGOT) 22, Alanine Aminotransferase (ALT/SGPT) 30, Alkaline Phosphatase 83, Total Protein 6.2L, Albumin 3.1L, Globulin 3.1, Albumin/ Globulin Ratio 1.0, Triglycerides Level 156H, Cholesterol Level 168, LDL Cholesterol 112H, HDL Cholesterol 43, Cholesterol/HDL Ratio 3.9, Thyroid Stimulating Hormone (TSH) 4.643H 06/05/18 05:05: White Blood Count 7.5, Red Blood Count 4.21L, Hemoglobin 12.5L, Hematocrit 37.8L , Mean Corpuscular Volume 90, Mean Corpuscular Hemoglobin 29.6, Mean Corpuscular Hemoglobin Concent 33.0, Red Cell Distribution Width 12.1, Platelet Count 273, Mean Platelet Volume 5.3L, Neutrophils (%) (Auto) 71.1, Lymphocytes ( %) (Auto) 15.9L, Monocytes (%) (Auto) 7.9, Eosinophils (%) (Auto) 3.6H, Basophils (%) (Auto) 1.5, Sodium Level 148#H, Potassium Level 4.4, Chloride Level 115H, Carbon Dioxide Level 24, Anion Gap 9, Blood Urea Nitrogen 15, Creatinine 1.5H, Estimat Glomerular Filtration Rate 47.7, Glucose Level 83, Calcium Level 8.9, Magnesium Level 2.3, Total Bilirubin 0.5, Aspartate Amino Transf (AST/SGOT) 17, Alanine Aminotransferase (ALT/SGPT) 31, Alkaline Phosphatase 90, Total Protein 7.0, Albumin 3.6, Globulin 3.4, Albumin/Globulin Ratio 1.1, Thyroid Stimulating Hormone (TSH) 3.017, Hemoglobin A1c 5.3, Osmolality 312, Uric Acid 8.3H, Phosphorus Level 2.8, Gamma Glutamyl Transpeptidase 22, C-Reactive Protein, Quantitative 0.8, Pro-B-Type Natriuretic Peptide 89, Vitamin B12 Level 436, Folate 17.1, Free Thyroxine 1.02, Free Triiodothyronine 2.7 Height (Feet): 5 Height (Inches): 9.00 Weight (Pounds): 184 General Appearance: no apparent distress Neck: normal alignment Cardiovascular: regular rhythm Respiratory/Chest: lungs clear Abdomen: normal bowel sounds Objective Current Medications Medications (Trade) Dose Ordered Sig/Cori Route PRN Reason Start Time Stop Time Status Last Admin Dose Admin Acetaminophen (Tylenol) 650 mg Q4H PRN ORAL fever 06/03/18 22:15 07/03/18 22:14 Albuterol Sulfate (Proventil) 2.5 mg Q4H PRN HHN Shortness of Breath 06/05/18 07:15 06/10/18 07:14 UNV Aripiprazole (Abilify) 10 mg DAILY ORAL 06/04/18 09:00 07/04/18 08:59 06/04/18 08:18 Clonazepam (KlonoPIN) 2 mg Q6H PRN ORAL For Anxiety 06/04/18 17:00 06/11/18 16:59 06/05/18 06:14 Dextrose (Dextrose 50%) STAT PRN IV Hypoglycemia 06/03/18 22:15 07/03/18 22:14 Docusate Sodium (Colace) 250 mg BID ORAL 06/05/18 09:00 07/05/18 08:59 Finasteride (Proscar) 5 mg DAILY ORAL 06/05/18 09:00 07/05/18 08:59 Levothyroxine Sodium (Synthroid) 25 mcg DAILY ORAL 06/05/18 09:00 07/05/18 08:59 Montelukast Sodium (Singulair) 10 mg QPM ORAL 06/05/18 16:30 07/05/18 16:29 Morphine Sulfate (Morphine Sulfate) 1 mg EVERY 4 HOURS PRN IVP Severe Pain (Pain Scale 7-10) 06/05/18 07:15 06/10/18 22:14 UNV Non-Formulary Medication (Non-Formulary Med) 1 ea Q12HR INH 06/05/18 09:00 07/05/18 08:59 UNV Olanzapine (ZyPREXA) 5 mg BID ORAL 06/05/18 09:00 07/05/18 08:59 Ondansetron HCl (Zofran) 4 mg Q6H PRN IVP Nausea & Vomiting 06/03/18 22:15 07/03/18 22:14 06/05/18 06:31 Pantoprazole (Protonix) 40 mg DAILY ORAL 06/05/18 09:00 07/05/18 08:59 Polyethylene Glycol (Miralax) 17 gm HSPRN PRN ORAL Constipation 06/03/18 22:15 07/03/18 22:14 Sodium Chloride 1,000 ml @ 75 mls/hr [id number] IV 06/03/18 22:15 07/03/18 22:14 06/04/18 11:54 Tamsulosin HCl (Flomax) 0.4 mg BEDTIME ORAL 06/04/18 22:30 07/05/18 20:59 06/04/18 22:38 Temazepam (Restoril) 15 mg BEDTIME PRN ORAL Insomnia 06/04/18 21:15 06/11/18 21:14 06/04/18 21:19 Topiramate (Topamax) 100 mg QHS ORAL 06/05/18 21:00 07/05/18 20:59 Tramadol HCl (Ultram) 50 mg Q12HR PRN ORAL Moderate Pain (Pain Scale 4-6) 06/05/18 07:15 06/12/18 07:14 UNV Zolpidem Tartrate (Ambien) 5 mg HSPRN PRN ORAL Insomnia 06/03/18 22:15 06/10/18 22:14 06/03/18 23:10 Bhupinder Ray MD Jun 05, 2018 07:23
[2018-06-05] MEDS ORDERED: traMADol 50mg tab ORAL PRN (07:30)
[2018-06-05] MEDS ORDERED: Albuterol ud Inhalation HHN PRN (07:30)
[2018-06-05] MEDS ORDERED: Morphine Sulfate 2mg/ml Inj IVP PRN (08:10)
[2018-06-05] MEDS: ARIPiprazole 10mg tab ORAL SCH (08:39)
[2018-06-05] MEDS: OLANZapine 2.5mg tab ORAL SCH ×2 (08:40→18:16)
[2018-06-05] MEDS: Levothyroxine 25mcg tab ORAL SCH (08:40)
[2018-06-05] MEDS: Docusate 100mg cap ORAL SCH ×2 (08:41→18:15)
[2018-06-05] MEDS: Norco 5mg/325mg tab ORAL PRN ×2 (08:42→20:46)
--- NOTE | 2018-06-05 09:43 | Nephrology Progress Note ---
Assessment/Plan Problem List: (1) Hyponatremia (2) Hypothyroidism (3) Nausea & vomiting (4) Psychosis Assessment HypoNatremia, Depletional, supported by low U Na Abdominal pain, Gastritis Renal failure ? Chronic h/o Psych and Sz Plan stop IV as Na corrected ? DC planning? Subjective ROS Limited/Unobtainable: No Constitutional: Reports: other - stronger Objective Objective Last 24 Hour Vital Signs Date Time Temp Pulse Resp B/P (MAP) Pulse Ox O2 Delivery O2 Flow Rate FiO2 06/05/18 08:42 98.6 06/05/18 04:00 98.6 84 20 124/85 (98) 93 98.6 06/05/18 00:00 98.2 85 20 121/79 (93) 95 98.2 06/04/18 21:00 Room Air 06/04/18 20:00 99.1 86 21 114/76 (89) 95 99.1 06/04/18 16:00 98.0 80 19 134/69 (90) 99 98.0 06/04/18 11:49 98.7 62 18 105/63 (77) 99 98.7 Intake and Output 06/04/18 06/05/18 19:00 07:00 Intake Total 1900 ml 300 ml Output Total 850 ml 2600 ml Balance 1050 ml -2300 ml Intake IV Total 900 ml 300 ml Other 1000 ml Output Urine Total 850 ml 2600 ml # Bowel Movements 1 Laboratory Tests 06/05/18 05:05: White Blood Count 7.5, Red Blood Count 4.21L, Hemoglobin 12.5L, Hematocrit 37.8L , Mean Corpuscular Volume 90, Mean Corpuscular Hemoglobin 29.6, Mean Corpuscular Hemoglobin Concent 33.0, Red Cell Distribution Width 12.1, Platelet Count 273, Mean Platelet Volume 5.3L, Neutrophils (%) (Auto) 71.1, Lymphocytes ( %) (Auto) 15.9L, Monocytes (%) (Auto) 7.9, Eosinophils (%) (Auto) 3.6H, Basophils (%) (Auto) 1.5, Sodium Level 148#H, Potassium Level 4.4, Chloride Level 115H, Carbon Dioxide Level 24, Anion Gap 9, Blood Urea Nitrogen 15, Creatinine 1.5H, Estimat Glomerular Filtration Rate 47.7, Glucose Level 83, Hemoglobin A1c 5.3, Osmolality 312, Uric Acid 8.3H, Calcium Level 8.9, Phosphorus Level 2.8, Magnesium Level 2.3, Total Bilirubin 0.5, Gamma Glutamyl Transpeptidase 22, Aspartate Amino Transf (AST/SGOT) 17, Alanine Aminotransferase (ALT/SGPT) 31, Alkaline Phosphatase 90, C-Reactive Protein, Quantitative 0.8, Pro-B-Type Natriuretic Peptide 89, Total Protein 7.0, Albumin 3.6, Globulin 3.4, Albumin/Globulin Ratio 1.1, Vitamin B12 Level 436, Folate 17.1, Thyroid Stimulating Hormone (TSH) 3.017, Free Thyroxine 1.02, Free Triiodothyronine 2.7 Height (Feet): 5 Height (Inches): 9.00 Weight (Pounds): 184 General Appearance: no apparent distress Cardiovascular: normal rate Respiratory/Chest: lungs clear Abdomen: soft Gamal Garcia MD Jun 05, 2018 09:43
[2018-06-05] MEDS ORDERED: Miralax 17gm pkt ORAL PRN (11:45)
--- NOTE | 2018-06-05 12:04 | Pulmonology Progress Note ---
Assessment/Plan Problems: (1) Nausea & vomiting (2) Hyponatremia (3) Psychosis Assessment/Plan Na is better respiratory treatment Klonopine helpful for agitation Pt wants [place] for pain check electrolytes dvt prophylaxis Subjective ROS Limited/Unobtainable: No Constitutional: Reports: no symptoms HEENT: Repors: no symptoms Respiratory: Reports: no symptoms Allergies: Coded Allergies: CHLORPROMAZINE (Unverified Allergy, Unknown, 05/24/18) CLOZAPINE (Unverified Allergy, Unknown, 05/24/18) DIVALPROEX SODIUM (Unverified Allergy, Unknown, 05/24/18) HALOPERIDOL (Unverified Allergy, Unknown, 05/24/18) SERTRALINE (Unverified Allergy, Unknown, 05/24/18) Objective Last 24 Hour Vital Signs Date Time Temp Pulse Resp B/P (MAP) Pulse Ox O2 Delivery O2 Flow Rate FiO2 06/05/18 09:41 98.6 06/05/18 09:00 Room Air 06/05/18 08:42 98.6 06/05/18 08:00 98.1 111 20 107/73 (84) 94 98.1 06/05/18 04:00 98.6 84 20 124/85 (98) 93 98.6 06/05/18 00:00 98.2 85 20 121/79 (93) 95 98.2 06/04/18 21:00 Room Air 06/04/18 20:00 99.1 86 21 114/76 (89) 95 99.1 06/04/18 16:00 98.0 80 19 134/69 (90) 99 98.0 06/04/18 11:49 98.7 62 18 105/63 (77) 99 98.7 Intake and Output 06/04/18 06/05/18 19:00 07:00 Intake Total 1900 ml 300 ml Output Total 850 ml 2600 ml Balance 1050 ml -2300 ml Intake IV Total 900 ml 300 ml Other 1000 ml Output Urine Total 850 ml 2600 ml # Bowel Movements 1 General Appearance: WD/WN HEENT: normocephalic, atraumatic Respiratory/Chest: chest wall non-tender, lungs clear Cardiovascular: normal peripheral pulses, normal rate, regular rhythm - Genitourinary: normal external genitalia Extremities: no cyanosis Skin: no rash Microbiology Date/Time Source Procedure Growth Status 06/03/18 22:00 Nasal Nares MRSA Culture - Final Staphylococcus Aureus - Mrsa Complete Laboratory Tests 06/05/18 05:05: White Blood Count 7.5, Red Blood Count 4.21L, Hemoglobin 12.5L, Hematocrit 37.8L , Mean Corpuscular Volume 90, Mean Corpuscular Hemoglobin 29.6, Mean Corpuscular Hemoglobin Concent 33.0, Red Cell Distribution Width 12.1, Platelet Count 273, Mean Platelet Volume 5.3L, Neutrophils (%) (Auto) 71.1, Lymphocytes ( %) (Auto) 15.9L, Monocytes (%) (Auto) 7.9, Eosinophils (%) (Auto) 3.6H, Basophils (%) (Auto) 1.5, Sodium Level 148#H, Potassium Level 4.4, Chloride Level 115H, Carbon Dioxide Level 24, Anion Gap 9, Blood Urea Nitrogen 15, Creatinine 1.5H, Estimat Glomerular Filtration Rate 47.7, Glucose Level 83, Hemoglobin A1c 5.3, Osmolality 312, Uric Acid 8.3H, Calcium Level 8.9, Phosphorus Level 2.8, Magnesium Level 2.3, Total Bilirubin 0.5, Gamma Glutamyl Transpeptidase 22, Aspartate Amino Transf (AST/SGOT) 17, Alanine Aminotransferase (ALT/SGPT) 31, Alkaline Phosphatase 90, C-Reactive Protein, Quantitative 0.8, Pro-B-Type Natriuretic Peptide 89, Total Protein 7.0, Albumin 3.6, Globulin 3.4, Albumin/Globulin Ratio 1.1, Vitamin B12 Level 436, Folate 17.1, Thyroid Stimulating Hormone (TSH) 3.017, Free Thyroxine 1.02, Free Triiodothyronine 2.7 Current Medications Medications (Trade) Dose Ordered Sig/Cori Route PRN Reason Start Time Stop Time Status Last Admin Dose Admin Acetaminophen (Tylenol) 650 mg Q4H PRN ORAL fever 06/03/18 22:15 07/03/18 22:14 Acetaminophen/ Hydrocodone Bitart ([place] 5/325) 1 tab Q6H PRN ORAL Moderate Pain (Pain Scale 4-6) 06/05/18 08:15 06/12/18 08:14 06/05/18 08:42 Albuterol Sulfate (Proventil) 2.5 mg Q4H PRN HHN Shortness of Breath 06/05/18 07:30 06/10/18 07:29 Aripiprazole (Abilify) 10 mg DAILY ORAL 06/04/18 09:00 07/04/18 08:59 06/05/18 08:39 Clonazepam (KlonoPIN) 2 mg Q6H PRN ORAL For Anxiety 06/04/18 17:00 06/11/18 16:59 06/05/18 06:14 Dextrose (Dextrose 50%) STAT PRN IV Hypoglycemia 06/03/18 22:15 07/03/18 22:14 Docusate Sodium (Colace) 250 mg BID ORAL 06/05/18 09:00 07/05/18 08:59 06/05/18 08:41 Finasteride (Proscar) 5 mg DAILY ORAL 06/05/18 09:00 07/05/18 08:59 06/05/18 08:39 Levothyroxine Sodium (Synthroid) 25 mcg DAILY ORAL 06/05/18 09:00 07/05/18 08:59 06/05/18 08:40 Magnesium Hydroxide (Mom) 30 ml DAILYPRN PRN ORAL Constipation 06/05/18 11:45 07/05/18 11:44 Montelukast Sodium (Singulair) 10 mg QPM ORAL 06/05/18 16:30 07/05/18 16:29 Olanzapine (ZyPREXA) 5 mg BID ORAL 06/05/18 09:00 07/05/18 08:59 06/05/18 08:40 Ondansetron HCl (Zofran) 4 mg Q6H PRN IVP Nausea & Vomiting 06/03/18 22:15 07/03/18 22:14 06/05/18 06:31 Pantoprazole (Protonix) 40 mg DAILY ORAL 06/05/18 09:00 07/05/18 08:59 06/05/18 08:40 Polyethylene Glycol (Miralax) 17 gm HSPRN PRN ORAL Constipation 06/05/18 11:45 07/03/18 22:14 Salmeterol Xinafoate/ Fluticasone (Advair 100/50 Diskus) 1 puffs Q12HRT INH 06/05/18 13:00 07/05/18 12:59 Tamsulosin HCl (Flomax) 0.4 mg BEDTIME ORAL 06/04/18 22:30 07/05/18 20:59 06/04/18 22:38 Temazepam (Restoril) 15 mg BEDTIME PRN ORAL Insomnia 06/04/18 21:15 06/11/18 21:14 06/04/18 21:19 Topiramate (Topamax) 100 mg QHS ORAL 06/05/18 21:00 07/05/18 20:59 Zolpidem Tartrate (Ambien) 5 mg HSPRN PRN ORAL Insomnia 06/03/18 22:15 06/10/18 22:14 06/03/18 23:10 Murali Allen MD Jun 05, 2018 12:04
[2018-06-05] MEDS: Milk of Magnesia 30ml Ud ORAL PRN (12:08)
[2018-06-05] MEDS: Advair 100/50 Inhaler - 14 dose INH SCH ×2 (13:00→22:00)
--- NOTE | 2018-06-05 15:01 | GI Initial Consult Note ---
History of Present Illness General Date patient seen: Jun 05, 2018 Time patient seen: 15:36 Reason for Hospitalization: Abdominal Pain Referring physician: KARNE BERUMEN Reason for Consultation: ABDOMINAL PAIN Present Illness HPI This is a 62-year-old male with a psych history. He presents with chief complaint abdominal pain with vomiting. This is a ongoing problem for a couple weeks now. I have seen him twice before. CT scan initially showed enteritis. Lab was unremarkable except for hyponatremia. Initially claimed he was poisoned by botulism. Now he said that halfway was putting rat feces in his food. Denies any diarrhea. Nothing made it better. Nothing made it worse. Vomiting is nonbloody and nonbilious. Once or twice a day. Abdominal cramps. Denies fever or chills. Denies any suicidal thoughts or homicidal thought. GI consulted for abdominal pain. Pt seen, awake A&Ox3 NAD with no active s/sx of N/V/D. Denies any abdominal pain at this time. Has complaint of constipation, last BM yesterday however small. Abdomen distended, tympanic, non tender. CT AP reviewed noted with some fluid in the colon. Pt has no history of endoscopy/colonoscopy and refused to have any done at this time. Presents today with hyponatremia. Home Meds Active Scripts Ondansetron (Zofran) 4 Mg Tablet, 4 MG ORAL Q6H PRN for Nausea & Vomiting, #10 TAB 0 Refills Prov:SALLIE HENDERSON M.D. 05/26/18 Reported Medications Temazepam* (RESTORIL*) 15 Mg Capsule, 15 MG ORAL BEDTIME PRN for Insomnia, CAP 06/04/18 Clonazepam* (KLONOPIN*) 1 Mg Tablet, 2 MG ORAL TID, #15 TAB 0 Refills 06/04/18 Olanzapine* (ZYPREXA*) 5 Mg Tablet, 5 MG ORAL BID, TAB 06/04/18 Docusate Sodium* (COLACE*) 100 Mg Capsule, 250 MG ORAL BID, CAP 06/04/18 Acetaminophen* (ACETAMINOPHEN 325MG TABLET*) 325 Mg Tablet, 650 MG ORAL Q4H PRN for Moderate Pain (Pain Scale 4-6), TAB 06/04/18 Acetaminophen* (ACETAMINOPHEN 325MG TABLET*) 325 Mg Tablet, 325 MG ORAL Q4H PRN for Mild Pain/Temp > 100.5, TAB 7/23/18 Tramadol Hcl* (ULTRAM*) 50 Mg Tablet, 50 MG ORAL Q12HR PRN for For Pain, #30 TAB 0 Refills 06/04/18 Cranberry Fruit Concentrate (CRANBERRY) 450 Mg Tablet, 450 MG PO DAILY, TAB 06/04/18 Topiramate* (TOPAMAX*) 100 Mg Tablet, 100 MG ORAL QHS, #60 TAB 0 Refills 06/04/18 Tamsulosin Hcl (TAMSULOSIN HCL*) 0.4 Mg Cap.er.24h, 0.4 MG ORAL BEDTIME, CAP 06/04/18 Montelukast Sodium* (SINGULAIR*) 10 Mg Tablet, 10 MG ORAL QPM, TAB 06/04/18 Pantoprazole* (PROTONIX*) 40 Mg Tablet.dr, 40 MG ORAL DAILY, TAB 06/04/18 Levothyroxine Sodium* (SYNTHROID*) 25 Mcg Tablet, 25 MCG ORAL DAILY, TAB Take in the morning on an empty stomach, at least 30 minutes before food. 06/04/18 Finasteride* (PROSCAR*) 5 Mg Tablet, 5 MG ORAL DAILY, #30 TAB 0 Refills 06/04/18 Fluticasone/Salmeterol (ADVAIR HFA 115-21 MCG INHALER) 12 Gm Hfa.aer.ad, 2 PUFFS INH EVERY 12 HOURS, EA 06/04/18 Lorazepam* (LORAZEPAM*) 0.5 Mg Tablet, 0.5 MG ORAL THREE TIMES A DAY, TAB 06/03/18 Ibuprofen* (MOTRIN*) 600 Mg Tablet, 400 MG ORAL TID PRN for For Pain, #30 TAB 0 Refills 06/03/18 Albuterol Sulfate* (ALBUTEROL SULFATE HHN*) 2.5 Mg/3 Ml Vial.neb, 3 ML INH Q4H PRN for Shortness of Breath, EA 06/03/18 Aripiprazole* (ABILIFY*) 10 Mg Tablet, 10 MG ORAL DAILY, TAB 06/03/18 Discontinued Reported Medications Temazepam (TEMAZEPAM*) 7.5 Mg Capsule, 7.5 MG ORAL BEDTIME, #30 CAP 0 Refills 06/03/18 Med list reviewed/reconciled: Yes Allergies: Coded Allergies: CHLORPROMAZINE (Unverified Allergy, Unknown, 05/24/18) CLOZAPINE (Unverified Allergy, Unknown, 05/24/18) DIVALPROEX SODIUM (Unverified Allergy, Unknown, 05/24/18) HALOPERIDOL (Unverified Allergy, Unknown, 05/24/18) SERTRALINE (Unverified Allergy, Unknown, 05/24/18) Patient History History Provided By: Patient, Medical Record PMH Narrative Past Medical History: see triage record, old chart reviewed, psych hx Past Surgical History: other Pertinent Family History: none Social History: Denies: alcohol use Immunizations: other Reviewed Nursing Documentation: PMH: Agreed; PSxH: Agreed Nursing Documentation-PMH Hx Asthma: Yes Hx COPD: Yes Hx Gastrointestinal Problems: Yes - GERD History Of Psychiatric Problem: Yes - bipolar Hx Seizures: Yes Review of Systems All Other Systems: negative except mentioned in HPI Physical Exam Vital Signs Date Time Temp Pulse Resp B/P (MAP) Pulse Ox O2 Delivery O2 Flow Rate FiO2 06/03/18 20:22 98.3 83 18 122/64 99 Room Air 98.2 06/05/18 14:31 21 Sp02 EP Interpretation: reviewed, normal Labs Laboratory Tests Test 06/05/18 05:05 White Blood Count 7.5 K/UL (4.8-10.8) Red Blood Count 4.21 M/UL (4.70-6.10) L Hemoglobin 12.5 G/DL (14.2-18.0) L Hematocrit 37.8 % (42.0-52.0) L Mean Corpuscular Volume 90 FL (80-99) Mean Corpuscular Hemoglobin 29.6 PG (27.0-31.0) Mean Corpuscular Hemoglobin Concent 33.0 G/DL (32.0-36.0) Red Cell Distribution Width 12.1 % (11.6-14.8) Platelet Count 273 K/UL (150-450) Mean Platelet Volume 5.3 FL (6.5-10.1) L Neutrophils (%) (Auto) 71.1 % (45.0-75.0) Lymphocytes (%) (Auto) 15.9 % (20.0-45.0) L Monocytes (%) (Auto) 7.9 % (1.0-10.0) Eosinophils (%) (Auto) 3.6 % (0.0-3.0) H Basophils (%) (Auto) 1.5 % (0.0-2.0) Sodium Level 148 MMOL/L (136-145) #H Potassium Level 4.4 MMOL/L (3.5-5.1) Chloride Level 115 MMOL/L (98-107) H Carbon Dioxide Level 24 MMOL/L (21-32) Anion Gap 9 mmol/L (5-15) Blood Urea Nitrogen 15 mg/dL (7-18) Creatinine 1.5 MG/DL (0.55-1.30) H Estimat Glomerular Filtration Rate 47.7 mL/min (>60) Glucose Level 83 MG/DL (74-106) Hemoglobin A1c 5.3 % (4.3-6.0) Osmolality 312 mOsm/kg (297-317) Uric Acid 8.3 MG/DL (2.6-7.2) H Calcium Level 8.9 MG/DL (8.5-10.1) Phosphorus Level 2.8 MG/DL (2.5-4.9) Magnesium Level 2.3 MG/DL (1.8-2.4) Total Bilirubin 0.5 MG/DL (0.2-1.0) Gamma Glutamyl Transpeptidase 22 U/L (5-85) Aspartate Amino Transf (AST/SGOT) 17 U/L (15-37) Alanine Aminotransferase (ALT/SGPT) 31 U/L (12-78) Alkaline Phosphatase 90 U/L (46-116) C-Reactive Protein, Quantitative 0.8 mg/dL (0.00-0.90) Pro-B-Type Natriuretic Peptide 89 pg/mL (0-125) Total Protein 7.0 G/DL (6.4-8.2) Albumin 3.6 G/DL (3.4-5.0) Globulin 3.4 g/dL Albumin/Globulin Ratio 1.1 (1.0-2.7) Vitamin B12 Level 436 PG/ML (193-986) Folate 17.1 NG/ML (8.6-58.9) Thyroid Stimulating Hormone (TSH) 3.017 uiU/mL (0.358-3.740) Free Thyroxine 1.02 NG/DL (0.76-1.46) Free Triiodothyronine 2.7 pg/mL (2.3-4.2) General Appearance: well appearing, no apparent distress, alert Head: normocephalic EENT: PERRL/EOMI, normal ENT inspection Neck: supple Respiratory: normal breath sounds, no respiratory distress Cardiovascular: normal rate Gastrointestinal: normal inspection, non tender, soft, normal bowel sounds, non -distended, distended Rectal: deferred Genitourinary: deferred Musculoskeletal: normal inspection, back normal Neurologic: normal inspection, alert, oriented x3, responsive Psychiatric: normal inspection, judgement/insight normal, memory normal Skin: normal inspection, normal color, no rash, warm/dry, palpation normal, well hydrated Lymphatic: normal inspection, no adenopathy Current Medications Current Medications Medications (Trade) Dose Ordered Sig/Cori Route PRN Reason Start Time Stop Time Status Last Admin Dose Admin Acetaminophen (Tylenol) 650 mg Q4H PRN ORAL fever 06/03/18 22:15 07/03/18 22:14 Acetaminophen/ Hydrocodone Bitart ([place] 5/325) 1 tab Q6H PRN ORAL Moderate Pain (Pain Scale 4-6) 06/05/18 08:15 06/12/18 08:14 06/05/18 08:42 Albuterol Sulfate (Proventil) 2.5 mg Q4H PRN HHN Shortness of Breath 06/05/18 07:30 06/10/18 07:29 Aripiprazole (Abilify) 10 mg DAILY ORAL 06/04/18 09:00 07/04/18 08:59 06/05/18 08:39 Clonazepam (KlonoPIN) 2 mg Q6H PRN ORAL For Anxiety 06/04/18 17:00 06/11/18 16:59 06/05/18 12:25 Dextrose (Dextrose 50%) STAT PRN IV Hypoglycemia 06/03/18 22:15 07/03/18 22:14 Docusate Sodium (Colace) 250 mg BID ORAL 06/05/18 09:00 07/05/18 08:59 06/05/18 08:41 Finasteride (Proscar) 5 mg DAILY ORAL 06/05/18 09:00 07/05/18 08:59 06/05/18 08:39 Levothyroxine Sodium (Synthroid) 25 mcg DAILY ORAL 06/05/18 09:00 07/05/18 08:59 06/05/18 08:40 Magnesium Hydroxide (Mom) 30 ml DAILYPRN PRN ORAL Constipation 06/05/18 11:45 07/05/18 11:44 06/05/18 12:08 Montelukast Sodium (Singulair) 10 mg QPM ORAL 06/05/18 16:30 07/05/18 16:29 Olanzapine (ZyPREXA) 5 mg BID ORAL 06/05/18 09:00 07/05/18 08:59 06/05/18 08:40 Ondansetron HCl (Zofran) 4 mg Q6H PRN IVP Nausea & Vomiting 06/03/18 22:15 07/03/18 22:14 06/05/18 06:31 Pantoprazole (Protonix) 40 mg DAILY ORAL 06/05/18 09:00 07/05/18 08:59 06/05/18 08:40 Polyethylene Glycol (Miralax) 17 gm HSPRN PRN ORAL Constipation 06/05/18 11:45 07/03/18 22:14 Salmeterol Xinafoate/ Fluticasone (Advair 100/50 Diskus) 1 puffs Q12HRT INH 06/05/18 13:00 07/05/18 12:59 Tamsulosin HCl (Flomax) 0.4 mg BEDTIME ORAL 06/04/18 22:30 07/05/18 20:59 06/04/18 22:38 Temazepam (Restoril) 15 mg BEDTIME PRN ORAL Insomnia 06/04/18 21:15 06/11/18 21:14 06/04/18 21:19 Topiramate (Topamax) 100 mg QHS ORAL 06/05/18 21:00 07/05/18 20:59 Zolpidem Tartrate (Ambien) 5 mg HSPRN PRN ORAL Insomnia 06/03/18 22:15 06/10/18 22:14 06/03/18 23:10 GI: Plan Problems: (1) Constipation (2) Abdominal bloating (3) Small intestinal bacterial overgrowth Plan refused GI procedures symptomatic treatment advance diet bowel regime >> colace + miralax simethicone prn probiotics ppi outpatient GI procedures Discussed with Dr. Loyd. Thank you for this patient referral, we will follow. The patient was seen and examined at bedside and all new and available data was reviewed in the patients chart. I agree with the above findings, impression and plan. (Patient seen earlier today. Signature stamp does not reflect patient encounter time.). - MD Sarah AndresBanner Cardon Children'S Medical CenterSaeg FERNANDEZ Jun 05, 2018 15:01
[2018-06-05] MEDS ORDERED: Simethicone 80mg tab ORAL PRN (15:15)
[2018-06-05] MEDS ORDERED: Simethicone 80mg tab ORAL SCH (15:15)
--- NOTE | 2018-06-05 15:33 | General Progress Note ---
Assessment/Plan Problem List: (1) COPD (chronic obstructive pulmonary disease) ICD Codes: J44.9 - Chronic obstructive pulmonary disease, unspecified SNOMED: 14583717 (2) Asthma ICD Codes: J45.909 - Unspecified asthma, uncomplicated SNOMED: 035730409 (3) Nausea & vomiting ICD Codes: R11.2 - Nausea with vomiting, unspecified SNOMED: 09501403 Qualifiers: Qualified Codes: R11.2 - Nausea with vomiting, unspecified (4) Psychosis ICD Codes: F29 - Unspecified psychosis not due to a substance or known physiological condition SNOMED: 92872727 (5) Hyponatremia ICD Codes: E87.1 - Hypo-osmolality and hyponatremia SNOMED: 00123706 (6) Hypothyroidism ICD Codes: E03.9 - Hypothyroidism, unspecified SNOMED: 16171318 Status: unchanged Assessment/Plan ot pt diet abx cbc bmp am Subjective Constitutional: Reports: weakness Allergies: Coded Allergies: CHLORPROMAZINE (Unverified Allergy, Unknown, 05/24/18) CLOZAPINE (Unverified Allergy, Unknown, 05/24/18) DIVALPROEX SODIUM (Unverified Allergy, Unknown, 05/24/18) HALOPERIDOL (Unverified Allergy, Unknown, 05/24/18) SERTRALINE (Unverified Allergy, Unknown, 05/24/18) All Systems: reviewed and negative except above Subjective sleepy calm in bed Objective Last 24 Hour Vital Signs Date Time Temp Pulse Resp B/P (MAP) Pulse Ox O2 Delivery O2 Flow Rate FiO2 06/05/18 14:31 Room Air 21 06/05/18 14:30 Room Air 06/05/18 12:00 98.5 83 18 108/56 (73) 94 98.5 06/05/18 09:41 98.6 06/05/18 09:00 Room Air 06/05/18 08:42 98.6 06/05/18 08:00 98.1 111 20 107/73 (84) 94 98.1 06/05/18 04:00 98.6 84 20 124/85 (98) 93 98.6 06/05/18 00:00 98.2 85 20 121/79 (93) 95 98.2 06/04/18 21:00 Room Air 06/04/18 20:00 99.1 86 21 114/76 (89) 95 99.1 06/04/18 16:00 98.0 80 19 134/69 (90) 99 98.0 Intake and Output 06/04/18 06/05/18 19:00 07:00 Intake Total 1900 ml 300 ml Output Total 850 ml 2600 ml Balance 1050 ml -2300 ml Intake IV Total 900 ml 300 ml Other 1000 ml Output Urine Total 850 ml 2600 ml # Bowel Movements 1 Laboratory Tests 06/05/18 05:05: White Blood Count 7.5, Red Blood Count 4.21L, Hemoglobin 12.5L, Hematocrit 37.8L , Mean Corpuscular Volume 90, Mean Corpuscular Hemoglobin 29.6, Mean Corpuscular Hemoglobin Concent 33.0, Red Cell Distribution Width 12.1, Platelet Count 273, Mean Platelet Volume 5.3L, Neutrophils (%) (Auto) 71.1, Lymphocytes ( %) (Auto) 15.9L, Monocytes (%) (Auto) 7.9, Eosinophils (%) (Auto) 3.6H, Basophils (%) (Auto) 1.5, Sodium Level 148#H, Potassium Level 4.4, Chloride Level 115H, Carbon Dioxide Level 24, Anion Gap 9, Blood Urea Nitrogen 15, Creatinine 1.5H, Estimat Glomerular Filtration Rate 47.7, Glucose Level 83, Hemoglobin A1c 5.3, Osmolality 312, Uric Acid 8.3H, Calcium Level 8.9, Phosphorus Level 2.8, Magnesium Level 2.3, Total Bilirubin 0.5, Gamma Glutamyl Transpeptidase 22, Aspartate Amino Transf (AST/SGOT) 17, Alanine Aminotransferase (ALT/SGPT) 31, Alkaline Phosphatase 90, C-Reactive Protein, Quantitative 0.8, Pro-B-Type Natriuretic Peptide 89, Total Protein 7.0, Albumin 3.6, Globulin 3.4, Albumin/Globulin Ratio 1.1, Vitamin B12 Level 436, Folate 17.1, Thyroid Stimulating Hormone (TSH) 3.017, Free Thyroxine 1.02, Free Triiodothyronine 2.7 Height (Feet): 5 Height (Inches): 9.00 Weight (Pounds): 184 General Appearance: lethargic EENT: normal ENT inspection Neck: normal alignment Cardiovascular: normal peripheral pulses, normal rate, regular rhythm Respiratory/Chest: chest wall non-tender, lungs clear, normal breath sounds Abdomen: normal bowel sounds, non tender, soft Extremities: normal inspection Edema: no edema noted Arm (L), no edema noted Arm (R), no edema noted Leg (L), no edema noted Leg (R), no edema noted Pedal (L), no edema noted Pedal (R), no edema noted Generalized Neurologic: motor weakness Skin: normal pigmentation, warm/dry Mansoor Villafuerte DO Jun 05, 2018 15:33
[2018-06-05] MEDS ORDERED: LORazepam 1mg tab ORAL PRN (15:45)
--- NOTE | 2018-06-05 17:15 | Progress Note ---
DATE: 06/04/2018 NOTE: POOR AUDIO SUBJECTIVE: This is a 62-year-old male patient. This patient this patient and follow throughout hospital course [facility] . Chart reviewed. Discussed with staff. . Shantanu Way M.D. DR: MONO JOB#: [id number] CC:
[2018-06-05] MEDS: Lactobacillus-GG tablet ORAL SCH (18:15)
[2018-06-05] MEDS: Miralax 17gm pkt ORAL PRN (18:18)
[2018-06-05] MEDS: Montelukast 10mg tablet ORAL SCH (18:20)
[2018-06-05] MEDS ORDERED: Sodium Chloride 500ML 500 ML IV ONE (19:45)
[2018-06-05] MEDS: Tamsulosin 0.4mg cap ORAL SCH (20:46)
[2018-06-05] MEDS ORDERED: Topiramate 100mg tab ORAL SCH (21:00)
[2018-06-05] MEDS ORDERED: Tamsulosin 0.4mg cap ORAL SCH (21:00)
[2018-06-05] MEDS ORDERED: Miralax 17gm pkt ORAL SCH (21:00)
--- NOTE | 2018-06-05 23:15 | Consultation ---
DATE OF CONSULTATION: 06/05/2018 INITIAL PSYCHIATRIC CONSULTATION CONSULTING PHYSICIAN: Shantanu Way M.D. HISTORY OF PRESENT ILLNESS: The patient is a 62-year-old male patient. The patient was admitted to the hospital secondary to hyponatremia as well as nausea and weakness, but he came in from [facility]. He is slightly weak, confused, disorganized. He has had some mood lability. He states the reason why he is agitated, irritable, depressed, and anxious is because he has constipation and he says "I felt constipated, that is why I'm upset and angry," that was his chief complaint. He denied any current suicidal or homicidal ideations at this time. MEDICAL HISTORY: He has asthma, COPD, and hyponatremia. He has also weakness, anemia, hypothyroidism, nausea and vomiting. SOCIAL HISTORY: Lives in [facility]. Financially supported by [employer] and Medicare. SUBSTANCE ABUSE HISTORY: Denies drug and alcohol use. ALLERGIES: To Thorazine, Clozaril, Depakote, Haldol, and Zoloft. FAMILY PSYCHIATRIC HISTORY: Denies. PAIN ASSESSMENT: 01/20 pain. DEVELOPMENTAL PROBLEMS: Denies. PSYCHIATRIC HISTORY: Paranoid schizophrenia. He has had multiple psychiatric admissions. MENTAL STATUS EXAMINATION: This is a 62-year-old male. Appearance is disheveled, irritable, and agitated. Affect is guarded and restricted. Intellect poor. Mood, depressed and anxious. Motor activity, psychomotor agitation. Attention span is poor. Orientation x2. Speech is pressured. Thought process, disorganized and illogical. Thought content, auditory hallucinations and paranoid delusions. Short-term memory 3/3 word recall after 5 minutes delay. He has good short-term memory. Long-term memory is intact long-term events . Insight and judgment is poor. DIAGNOSES: 1. Paranoid schizophrenia with acute exacerbation. 2. Medical problems - hyponatremia, weakness, asthma, chronic obstructive pulmonary disease. 3. Psychosocial stressors, financial. PLAN: Treat him with Abilify 10 mg p.o. daily, Zyprexa 5 mg twice a day. A 20 minutes of cognitive behavioral therapy provided where we discussed and identified his automatic negative thoughts and helped him to convert a lot of negative thoughts to positive thoughts to reduce depression and suicidality. Chart reviewed and discussed with staff. Seen and assessed at bedside. I would like to thank, Dr. Mansoor Villafuerte, for this interesting consultation. Shantanu Way M.D. DR: CARMINE JOB#: [id number] CC:
[2018-06-06] VITALS: BP 104/66
[2018-06-06 04:00] VITALS: BP 125/78
[2018-06-06] MEDS: Norco 5mg/325mg tab ORAL PRN ×2 (04:30→11:32)
[2018-06-06] MEDS: Milk of Magnesia 30ml Ud ORAL PRN (04:30)
--- NOTE | 2018-06-06 06:50 | General Progress Note ---
Assessment/Plan Problem List: (1) Hypothyroidism ICD Codes: E03.9 - Hypothyroidism, unspecified SNOMED: 19562431 (2) Hyponatremia ICD Codes: E87.1 - Hypo-osmolality and hyponatremia SNOMED: 92539233 (3) Psychosis ICD Codes: F29 - Unspecified psychosis not due to a substance or known physiological condition SNOMED: 71529907 (4) Nausea & vomiting ICD Codes: R11.2 - Nausea with vomiting, unspecified SNOMED: 06806030 Qualifiers: Qualified Codes: R11.2 - Nausea with vomiting, unspecified Assessment/Plan continue Levothyroxine 50 mcg daily repeat thyroid function in one month Subjective Allergies: Coded Allergies: CHLORPROMAZINE (Unverified Allergy, Unknown, 05/24/18) CLOZAPINE (Unverified Allergy, Unknown, 05/24/18) DIVALPROEX SODIUM (Unverified Allergy, Unknown, 05/24/18) HALOPERIDOL (Unverified Allergy, Unknown, 05/24/18) SERTRALINE (Unverified Allergy, Unknown, 05/24/18) All Systems: reviewed and negative except above Subjective events noted Objective Last 24 Hour Vital Signs Date Time Temp Pulse Resp B/P (MAP) Pulse Ox O2 Delivery O2 Flow Rate FiO2 06/06/18 04:00 97.5 65 21 125/78 (94) 100 97.5 06/06/18 00:00 98.0 66 19 104/66 (79) 97 98.0 06/05/18 22:00 Room Air 21 06/05/18 22:00 Room Air 21 06/05/18 21:00 Room Air 06/05/18 20:00 98.0 84 21 108/72 (84) 97 98.0 06/05/18 19:00 98.0 82 18 100/66 (77) 96 98.0 06/05/18 18:04 85 16 98 Room Air 21 06/05/18 17:55 21 06/05/18 17:55 86 16 96 Room Air 21 06/05/18 16:00 98.0 74 18 82/55 (64) 96 98.0 06/05/18 14:31 Room Air 21 06/05/18 14:30 Room Air 06/05/18 12:00 98.5 83 18 108/56 (73) 94 98.5 06/05/18 09:41 98.6 06/05/18 09:00 Room Air 06/05/18 08:42 98.6 06/05/18 08:00 98.1 111 20 107/73 (84) 94 98.1 Intake and Output 06/05/18 06/06/18 19:00 07:00 Intake Total 1500 ml Balance 1500 ml Intake Oral 1500 ml # Voids 5 4 # Bowel Movements 1 Height (Feet): 5 Height (Inches): 9.00 Weight (Pounds): 184 General Appearance: no apparent distress Neck: normal alignment Cardiovascular: normal rate Respiratory/Chest: lungs clear Abdomen: normal bowel sounds Objective Current Medications Medications (Trade) Dose Ordered Sig/Cori Route PRN Reason Start Time Stop Time Status Last Admin Dose Admin Acetaminophen (Tylenol) 650 mg Q4H PRN ORAL fever 06/03/18 22:15 07/03/18 22:14 Acetaminophen/ Hydrocodone Bitart ([place] 5/325) 1 tab Q6H PRN ORAL Moderate Pain (Pain Scale 4-6) 06/05/18 08:15 06/12/18 08:14 06/06/18 04:30 Albuterol Sulfate (Proventil) 2.5 mg Q4H PRN HHN Shortness of Breath 06/05/18 07:30 06/10/18 07:29 06/05/18 17:59 Aripiprazole (Abilify) 10 mg DAILY ORAL 06/04/18 09:00 07/04/18 08:59 06/05/18 08:39 Clonazepam (KlonoPIN) 2 mg Q8HR ORAL 06/05/18 22:00 06/12/18 21:59 06/06/18 06:18 Dextrose (Dextrose 50%) STAT PRN IV Hypoglycemia 06/03/18 22:15 07/03/18 22:14 Docusate Sodium (Colace) 250 mg BID ORAL 06/05/18 09:00 07/05/18 08:59 06/05/18 18:15 Finasteride (Proscar) 5 mg DAILY ORAL 06/05/18 09:00 07/05/18 08:59 06/05/18 08:39 Lactobacillus Acidophilus (Culturelle) 1 tab THREE TIMES A DAY ORAL 06/05/18 18:00 07/05/18 17:59 06/05/18 18:15 Levothyroxine Sodium (Synthroid) 25 mcg DAILY ORAL 06/05/18 09:00 07/05/18 08:59 06/05/18 08:40 Lorazepam (Ativan) 1 mg Q6H PRN ORAL For Anxiety 06/05/18 15:45 06/12/18 15:44 06/05/18 19:12 Magnesium Hydroxide (Mom) 30 ml DAILYPRN PRN ORAL Constipation 06/05/18 11:45 07/05/18 11:44 06/06/18 04:30 Montelukast Sodium (Singulair) 10 mg QPM ORAL 06/05/18 16:30 07/05/18 16:29 06/05/18 18:20 Olanzapine (ZyPREXA) 5 mg BID ORAL 06/05/18 09:00 07/05/18 08:59 06/05/18 18:16 Ondansetron HCl (Zofran) 4 mg Q6H PRN IVP Nausea & Vomiting 06/03/18 22:15 07/03/18 22:14 06/05/18 18:16 Pantoprazole (Protonix) 40 mg DAILY ORAL 06/05/18 09:00 07/05/18 08:59 06/05/18 08:40 Polyethylene Glycol (Miralax) 17 gm BEDTIME ORAL 06/05/18 21:00 07/05/18 20:59 Polyethylene Glycol (Miralax) 17 gm DAILYPRN PRN ORAL Constipation 06/05/18 17:45 07/05/18 17:44 06/05/18 18:18 Salmeterol Xinafoate/ Fluticasone (Advair 100/50 Diskus) 1 puffs Q12HRT INH 06/05/18 13:00 07/05/18 12:59 Simethicone (Mylicon) 80 mg QIDPRN PRN ORAL GAS PAIN 06/05/18 15:15 07/05/18 15:14 Tamsulosin HCl (Flomax) 0.4 mg BEDTIME ORAL 06/04/18 22:30 07/05/18 20:59 06/05/18 20:46 Temazepam (Restoril) 15 mg BEDTIME PRN ORAL Insomnia 06/04/18 21:15 06/11/18 21:14 06/05/18 22:51 Topiramate (Topamax) 100 mg QHS ORAL 06/05/18 21:00 07/05/18 20:59 06/05/18 20:46 Zolpidem Tartrate (Ambien) 5 mg HSPRN PRN ORAL Insomnia 06/03/18 22:15 06/10/18 22:14 06/03/18 23:10 Bhupinder Ray MD Jun 06, 2018 06:50
[2018-06-06 07:30] LABS: BASOPHILS % (AUTO) 1.5 % (0.0-2.0); EOSINOPHILS % (AUTO) 5.6 % (0.0-3.0); HEMATOCRIT 38.4 % (42.0-52.0); HEMOGLOBIN 12.5 G/DL (14.2-18.0); LYMPHOCYTES % (AUTO) 28.6 % (20.0-45.0); MEAN CORPUSCULAR VOLUME 91 FL (80-99); MONOCYTES % (AUTO) 7.3 % (1.0-10.0); NEUTROPHILS % (AUTO) 57.1 % (45.0-75.0); PLATELET COUNT 230 K/UL (150-450); RED BLOOD COUNT 4.23 M/UL (4.70-6.10); RED CELL DISTRIBUTION WIDTH 12.3 % (11.6-14.8)
[2018-06-06 07:48] LABS: ALANINE AMINOTRANSFERASE 33 U/L (12-78); ALBUMIN 3.5 G/DL (3.4-5.0); ALKALINE PHOSPHATASE 85 U/L (46-116); ANION GAP 8 mmol/L (5-15); ASPARTATE AMINO TRANSFERASE 25 U/L (15-37); BILIRUBIN,TOTAL 0.4 MG/DL (0.2-1.0); BLOOD UREA NITROGEN 15 mg/dL (7-18); CALCIUM 8.9 MG/DL (8.5-10.1); CARBON DIOXIDE 26 MMOL/L (21-32); CHLORIDE 109 MMOL/L (98-107); CREATININE 1.5 MG/DL (0.55-1.30); PHOSPHORUS 3.3 MG/DL (2.5-4.9); POTASSIUM 4.7 MMOL/L (3.5-5.1); SODIUM 143 MMOL/L (136-145)
[2018-06-06 08:00] VITALS: BP 97/74
[2018-06-06] MEDS: ARIPiprazole 10mg tab ORAL SCH (08:24)
[2018-06-06] MEDS: Levothyroxine 25mcg tab ORAL SCH (08:25)
[2018-06-06] MEDS: OLANZapine 2.5mg tab ORAL SCH ×2 (08:25→17:23)
[2018-06-06] MEDS: Lactobacillus-GG tablet ORAL SCH ×3 (08:27→17:22)
[2018-06-06] MEDS: Docusate 100mg cap ORAL SCH (08:28)
[2018-06-06] MEDS: Miralax 17gm pkt ORAL PRN (08:37)
[2018-06-06] MEDS: Advair 100/50 Inhaler - 14 dose INH SCH (09:02)
--- NOTE | 2018-06-06 10:30 | Nephrology Progress Note ---
Assessment/Plan Problem List: (1) Hyponatremia (2) Hypothyroidism (3) Nausea & vomiting (4) Psychosis Assessment HypoNatremia, Depletional, supported by low U Na Abdominal pain, Gastritis Renal failure ? Chronic h/o Psych and Sz Plan stop IV as Na corrected ? DC planning? Subjective ROS Limited/Unobtainable: No Objective Objective Last 24 Hour Vital Signs Date Time Temp Pulse Resp B/P (MAP) Pulse Ox O2 Delivery O2 Flow Rate FiO2 06/06/18 08:50 Room Air 21 06/06/18 08:50 Room Air 21 06/06/18 08:00 97.7 80 21 97/74 (82) 95 97.7 06/06/18 04:00 97.5 65 21 125/78 (94) 100 97.5 06/06/18 00:00 98.0 66 19 104/66 (79) 97 98.0 06/05/18 22:00 Room Air 21 06/05/18 22:00 Room Air 21 06/05/18 21:00 Room Air 06/05/18 20:00 98.0 84 21 108/72 (84) 97 98.0 06/05/18 19:00 98.0 82 18 100/66 (77) 96 98.0 06/05/18 18:04 85 16 98 Room Air 21 06/05/18 17:55 21 06/05/18 17:55 86 16 96 Room Air 06/05/18 16:00 98.0 74 18 82/55 (64) 96 98.0 06/05/18 14:31 Room Air 21 06/05/18 14:30 Room Air 06/05/18 12:00 98.5 83 18 108/56 (73) 94 98.5 Intake and Output 06/05/18 06/06/18 19:00 07:00 Intake Total 1500 ml Balance 1500 ml Intake Oral 1500 ml # Voids 5 4 # Bowel Movements 1 Laboratory Tests 06/06/18 06:31: White Blood Count 7.0, Red Blood Count 4.23L, Hemoglobin 12.5L, Hematocrit 38.4L , Mean Corpuscular Volume 91, Mean Corpuscular Hemoglobin 29.7, Mean Corpuscular Hemoglobin Concent 32.7, Red Cell Distribution Width 12.3, Platelet Count 230, Mean Platelet Volume 5.3L, Neutrophils (%) (Auto) 57.1, Lymphocytes ( %) (Auto) 28.6, Monocytes (%) (Auto) 7.3, Eosinophils (%) (Auto) 5.6H, Basophils (%) (Auto) 1.5, Sodium Level 143, Potassium Level 4.7, Chloride Level 109H, Carbon Dioxide Level 26, Anion Gap 8, Blood Urea Nitrogen 15, Creatinine 1.5H, Estimat Glomerular Filtration Rate 47.7, Glucose Level 88, Calcium Level 8.9, Phosphorus Level 3.3, Magnesium Level 2.3, Total Bilirubin 0.4, Aspartate Amino Transf (AST/SGOT) 25, Alanine Aminotransferase (ALT/SGPT) 33, Alkaline Phosphatase 85, Total Protein 7.1, Albumin 3.5, Globulin 3.6, Albumin/Globulin Ratio 1.0 Height (Feet): 5 Height (Inches): 9.00 Weight (Pounds): 195 General Appearance: no apparent distress Objective no change Gamal Garcia MD Jun 06, 2018 10:30
[2018-06-06] MEDS ORDERED: Magnesium Citrate Liq Btl ORAL SCH (11:00)
[2018-06-06 12:00] VITALS: BP 121/76
--- NOTE | 2018-06-06 13:12 | GI Progress Note ---
Assessment/Plan Problems: (1) Small intestinal bacterial overgrowth ICD Codes: K63.89 - Other specified diseases of intestine SNOMED: 792332835 (2) Abdominal bloating ICD Codes: R14.0 - Abdominal distension (gaseous) SNOMED: 327401917 (3) Constipation ICD Codes: K59.00 - Constipation, unspecified SNOMED: 50530061 (4) Nausea & vomiting ICD Codes: R11.2 - Nausea with vomiting, unspecified SNOMED: 35032742 Qualifiers: Qualified Codes: R11.2 - Nausea with vomiting, unspecified Status: stable Status Narrative Discussed with Dr. Loyd. Assessment/Plan refused GI procedures symptomatic treatment advance diet bowel regime >> colace + miralax, add mag citrate x1 simethicone prn probiotics ppi fu labs outpatient GI procedures dc planning Subjective Gastrointestinal/Abdominal: Reports: constipated Objective Last 24 Hour Vital Signs Date Time Temp Pulse Resp B/P (MAP) Pulse Ox O2 Delivery O2 Flow Rate FiO2 06/06/18 12:30 98.1 06/06/18 12:00 98.1 66 21 121/76 (91) 95 98.1 06/06/18 11:32 97.7 06/06/18 09:00 Room Air 06/06/18 08:50 Room Air 21 06/06/18 08:50 Room Air 21 06/06/18 08:00 97.7 80 21 97/74 (82) 95 97.7 06/06/18 04:00 97.5 65 21 125/78 (94) 100 97.5 06/06/18 00:00 98.0 66 19 104/66 (79) 97 98.0 06/05/18 22:00 Room Air 21 06/05/18 22:00 Room Air 21 06/05/18 21:00 Room Air 06/05/18 20:00 98.0 84 21 108/72 (84) 97 98.0 06/05/18 19:00 98.0 82 18 100/66 (77) 96 98.0 06/05/18 18:04 85 16 98 Room Air 21 06/05/18 17:55 21 06/05/18 17:55 86 16 96 Room Air 21 06/05/18 16:00 98.0 74 18 82/55 (64) 96 98.0 7/24/18 14:31 Room Air 21 06/05/18 14:30 Room Air Intake and Output 06/05/18 06/06/18 19:00 07:00 Intake Total 1500 ml Balance 1500 ml Intake Oral 1500 ml # Voids 5 4 # Bowel Movements 1 Laboratory Tests Test 06/06/18 06:31 White Blood Count 7.0 K/UL (4.8-10.8) Red Blood Count 4.23 M/UL (4.70-6.10) L Hemoglobin 12.5 G/DL (14.2-18.0) L Hematocrit 38.4 % (42.0-52.0) L Mean Corpuscular Volume 91 FL (80-99) Mean Corpuscular Hemoglobin 29.7 PG (27.0-31.0) Mean Corpuscular Hemoglobin Concent 32.7 G/DL (32.0-36.0) Red Cell Distribution Width 12.3 % (11.6-14.8) Platelet Count 230 K/UL (150-450) Mean Platelet Volume 5.3 FL (6.5-10.1) L Neutrophils (%) (Auto) 57.1 % (45.0-75.0) Lymphocytes (%) (Auto) 28.6 % (20.0-45.0) Monocytes (%) (Auto) 7.3 % (1.0-10.0) Eosinophils (%) (Auto) 5.6 % (0.0-3.0) H Basophils (%) (Auto) 1.5 % (0.0-2.0) Sodium Level 143 MMOL/L (136-145) Potassium Level 4.7 MMOL/L (3.5-5.1) Chloride Level 109 MMOL/L (98-107) H Carbon Dioxide Level 26 MMOL/L (21-32) Anion Gap 8 mmol/L (5-15) Blood Urea Nitrogen 15 mg/dL (7-18) Creatinine 1.5 MG/DL (0.55-1.30) H Estimat Glomerular Filtration Rate 47.7 mL/min (>60) Glucose Level 88 MG/DL (74-106) Calcium Level 8.9 MG/DL (8.5-10.1) Phosphorus Level 3.3 MG/DL (2.5-4.9) Magnesium Level 2.3 MG/DL (1.8-2.4) Total Bilirubin 0.4 MG/DL (0.2-1.0) Aspartate Amino Transf (AST/SGOT) 25 U/L (15-37) Alanine Aminotransferase (ALT/SGPT) 33 U/L (12-78) Alkaline Phosphatase 85 U/L (46-116) Total Protein 7.1 G/DL (6.4-8.2) Albumin 3.5 G/DL (3.4-5.0) Globulin 3.6 g/dL Albumin/Globulin Ratio 1.0 (1.0-2.7) Height (Feet): 5 Height (Inches): 9.00 Weight (Pounds): 195 General Appearance: WD/WN, no apparent distress, alert Cardiovascular: normal rate Respiratory/Chest: normal breath sounds, no respiratory distress Abdominal Exam: normal bowel sounds, non tender, soft Extremities: normal range of motion, non-tender aPtti Smith NP Jun 06, 2018 13:12
--- NOTE | 2018-06-06 13:13 | Pulmonology Progress Note ---
Assessment/Plan Problems: (1) Nausea & vomiting (2) Hyponatremia (3) Psychosis Assessment/Plan add laxatives Na is better respiratory treatment Klonopine helpful for agitation Pt wants [place] for pain check electrolytes dvt prophylaxis Subjective ROS Limited/Unobtainable: No Constitutional: Reports: no symptoms HEENT: Repors: no symptoms Respiratory: Reports: no symptoms Allergies: Coded Allergies: CHLORPROMAZINE (Unverified Allergy, Unknown, 05/24/18) CLOZAPINE (Unverified Allergy, Unknown, 05/24/18) DIVALPROEX SODIUM (Unverified Allergy, Unknown, 05/24/18) HALOPERIDOL (Unverified Allergy, Unknown, 05/24/18) SERTRALINE (Unverified Allergy, Unknown, 05/24/18) Objective Last 24 Hour Vital Signs Date Time Temp Pulse Resp B/P (MAP) Pulse Ox O2 Delivery O2 Flow Rate FiO2 06/06/18 12:30 98.1 06/06/18 12:00 98.1 66 21 121/76 (91) 95 98.1 06/06/18 11:32 97.7 06/06/18 09:00 Room Air 06/06/18 08:50 Room Air 21 06/06/18 08:50 Room Air 21 06/06/18 08:00 97.7 80 21 97/74 (82) 95 97.7 06/06/18 04:00 97.5 65 21 125/78 (94) 100 97.5 06/06/18 00:00 98.0 66 19 104/66 (79) 97 98.0 06/05/18 22:00 Room Air 21 06/05/18 22:00 Room Air 21 06/05/18 21:00 Room Air 06/05/18 20:00 98.0 84 21 108/72 (84) 97 98.0 06/05/18 19:00 98.0 82 18 100/66 (77) 96 98.0 06/05/18 18:04 85 16 98 Room Air 21 06/05/18 17:55 21 06/05/18 17:55 86 16 96 Room Air 21 06/05/18 16:00 98.0 74 18 82/55 (64) 96 98.0 06/05/18 14:31 Room Air 21 06/05/18 14:30 Room Air Intake and Output 06/05/18 06/06/18 19:00 07:00 Intake Total 1500 ml Balance 1500 ml Intake Oral 1500 ml # Voids 5 4 # Bowel Movements 1 General Appearance: WD/WN HEENT: normocephalic, atraumatic Respiratory/Chest: chest wall non-tender, lungs clear Cardiovascular: normal peripheral pulses, normal rate Abdomen: normal bowel sounds, soft, non tender Skin: no rash 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 Complete Laboratory Tests 06/06/18 06:31: White Blood Count 7.0, Red Blood Count 4.23L, Hemoglobin 12.5L, Hematocrit 38.4L , Mean Corpuscular Volume 91, Mean Corpuscular Hemoglobin 29.7, Mean Corpuscular Hemoglobin Concent 32.7, Red Cell Distribution Width 12.3, Platelet Count 230, Mean Platelet Volume 5.3L, Neutrophils (%) (Auto) 57.1, Lymphocytes ( %) (Auto) 28.6, Monocytes (%) (Auto) 7.3, Eosinophils (%) (Auto) 5.6H, Basophils (%) (Auto) 1.5, Sodium Level 143, Potassium Level 4.7, Chloride Level 109H, Carbon Dioxide Level 26, Anion Gap 8, Blood Urea Nitrogen 15, Creatinine 1.5H, Estimat Glomerular Filtration Rate 47.7, Glucose Level 88, Calcium Level 8.9, Phosphorus Level 3.3, Magnesium Level 2.3, Total Bilirubin 0.4, Aspartate Amino Transf (AST/SGOT) 25, Alanine Aminotransferase (ALT/SGPT) 33, Alkaline Phosphatase 85, Total Protein 7.1, Albumin 3.5, Globulin 3.6, Albumin/Globulin Ratio 1.0 Current Medications Medications (Trade) Dose Ordered Sig/Cori Route PRN Reason Start Time Stop Time Status Last Admin Dose Admin Acetaminophen (Tylenol) 650 mg Q4H PRN ORAL fever 06/03/18 22:15 07/03/18 22:14 Acetaminophen/ Hydrocodone Bitart ([place] 5/325) 1 tab Q6H PRN ORAL Moderate Pain (Pain Scale 4-6) 06/05/18 08:15 06/12/18 08:14 06/06/18 11:32 Albuterol Sulfate (Proventil) 2.5 mg Q4H PRN HHN Shortness of Breath 06/05/18 07:30 06/10/18 07:29 06/05/18 17:59 Aripiprazole (Abilify) 10 mg DAILY ORAL 06/04/18 09:00 07/04/18 08:59 06/06/18 08:24 Clonazepam (KlonoPIN) 2 mg Q8HR ORAL 06/05/18 22:00 06/12/18 21:59 06/06/18 12:40 Dextrose (Dextrose 50%) STAT PRN IV Hypoglycemia 06/03/18 22:15 07/03/18 22:14 Docusate Sodium (Colace) 250 mg BID ORAL 06/05/18 09:00 07/05/18 08:59 06/06/18 08:28 Finasteride (Proscar) 5 mg DAILY ORAL 06/05/18 09:00 07/05/18 08:59 06/06/18 08:27 Lactobacillus Acidophilus (Culturelle) 1 tab THREE TIMES A DAY ORAL 06/05/18 18:00 07/05/18 17:59 06/06/18 12:40 Levothyroxine Sodium (Synthroid) 25 mcg DAILY ORAL 06/05/18 09:00 07/05/18 08:59 06/06/18 08:25 Lorazepam (Ativan) 1 mg Q6H PRN ORAL For Anxiety 06/05/18 15:45 06/12/18 15:44 06/05/18 19:12 Magnesium Hydroxide (Mom) 30 ml DAILYPRN PRN ORAL Constipation 06/05/18 11:45 07/05/18 11:44 06/06/18 04:30 Montelukast Sodium (Singulair) 10 mg QPM ORAL 06/05/18 16:30 07/05/18 16:29 06/05/18 18:20 Olanzapine (ZyPREXA) 5 mg BID ORAL 06/05/18 09:00 07/05/18 08:59 06/06/18 08:25 Ondansetron HCl (Zofran) 4 mg Q6H PRN IVP Nausea & Vomiting 06/03/18 22:15 07/03/18 22:14 06/05/18 18:16 Pantoprazole (Protonix) 40 mg DAILY ORAL 06/05/18 09:00 07/05/18 08:59 06/06/18 08:24 Polyethylene Glycol (Miralax) 17 gm BEDTIME ORAL 06/05/18 21:00 07/05/18 20:59 Polyethylene Glycol (Miralax) 17 gm DAILYPRN PRN ORAL Constipation 06/05/18 17:45 07/05/18 17:44 06/06/18 08:37 Salmeterol Xinafoate/ Fluticasone (Advair 100/50 Diskus) 1 puffs Q12HRT INH 06/05/18 13:00 07/05/18 12:59 Simethicone (Mylicon) 80 mg QIDPRN PRN ORAL GAS PAIN 06/05/18 15:15 07/05/18 15:14 Tamsulosin HCl (Flomax) 0.4 mg BEDTIME ORAL 06/04/18 22:30 07/05/18 20:59 06/05/18 20:46 Temazepam (Restoril) 15 mg BEDTIME PRN ORAL Insomnia 06/04/18 21:15 06/11/18 21:14 06/05/18 22:51 Topiramate (Topamax) 100 mg QHS ORAL 06/05/18 21:00 07/05/18 20:59 06/05/18 20:46 Zolpidem Tartrate (Ambien) 5 mg HSPRN PRN ORAL Insomnia 06/03/18 22:15 06/10/18 22:14 06/03/18 23:10 Murali Allen MD Jun 06, 2018 13:12
--- NOTE | 2018-06-06 14:00 | General Progress Note ---
Assessment/Plan Problem List: (1) COPD (chronic obstructive pulmonary disease) ICD Codes: J44.9 - Chronic obstructive pulmonary disease, unspecified SNOMED: 76109516 (2) Asthma ICD Codes: J45.909 - Unspecified asthma, uncomplicated SNOMED: 251453409 (3) Nausea & vomiting ICD Codes: R11.2 - Nausea with vomiting, unspecified SNOMED: 20805871 Qualifiers: Qualified Codes: R11.2 - Nausea with vomiting, unspecified (4) Psychosis ICD Codes: F29 - Unspecified psychosis not due to a substance or known physiological condition SNOMED: 79318433 (5) Hyponatremia ICD Codes: E87.1 - Hypo-osmolality and hyponatremia SNOMED: 92410056 (6) Hypothyroidism ICD Codes: E03.9 - Hypothyroidism, unspecified SNOMED: 18857886 Status: stable, progressing Assessment/Plan ot pt diet abx dc if clear Subjective Constitutional: Reports: weakness Allergies: Coded Allergies: CHLORPROMAZINE (Unverified Allergy, Unknown, 05/24/18) CLOZAPINE (Unverified Allergy, Unknown, 05/24/18) DIVALPROEX SODIUM (Unverified Allergy, Unknown, 05/24/18) HALOPERIDOL (Unverified Allergy, Unknown, 05/24/18) SERTRALINE (Unverified Allergy, Unknown, 05/24/18) All Systems: reviewed and negative except above Subjective sleepy calm in bed Objective Last 24 Hour Vital Signs Date Time Temp Pulse Resp B/P (MAP) Pulse Ox O2 Delivery O2 Flow Rate FiO2 06/06/18 12:30 98.1 06/06/18 12:00 98.1 66 21 121/76 (91) 95 98.1 06/06/18 11:32 97.7 06/06/18 09:00 Room Air 06/06/18 08:50 Room Air 21 06/06/18 08:50 Room Air 21 06/06/18 08:00 97.7 80 21 97/74 (82) 95 97.7 06/06/18 04:00 97.5 65 21 125/78 (94) 100 97.5 06/06/18 00:00 98.0 66 19 104/66 (79) 97 98.0 06/05/18 22:00 Room Air 21 06/05/18 22:00 Room Air 21 06/05/18 21:00 Room Air 06/05/18 20:00 98.0 84 21 108/72 (84) 97 98.0 06/05/18 19:00 98.0 82 18 100/66 (77) 96 98.0 06/05/18 18:04 85 16 98 Room Air 21 06/05/18 17:55 21 06/05/18 17:55 86 16 96 Room Air 21 06/05/18 16:00 98.0 74 18 82/55 (64) 96 98.0 06/05/18 14:31 Room Air 21 06/05/18 14:30 Room Air Intake and Output 06/05/18 06/06/18 19:00 07:00 Intake Total 1500 ml Balance 1500 ml Intake Oral 1500 ml # Voids 5 4 # Bowel Movements 1 Laboratory Tests 06/06/18 06:31: White Blood Count 7.0, Red Blood Count 4.23L, Hemoglobin 12.5L, Hematocrit 38.4L , Mean Corpuscular Volume 91, Mean Corpuscular Hemoglobin 29.7, Mean Corpuscular Hemoglobin Concent 32.7, Red Cell Distribution Width 12.3, Platelet Count 230, Mean Platelet Volume 5.3L, Neutrophils (%) (Auto) 57.1, Lymphocytes ( %) (Auto) 28.6, Monocytes (%) (Auto) 7.3, Eosinophils (%) (Auto) 5.6H, Basophils (%) (Auto) 1.5, Sodium Level 143, Potassium Level 4.7, Chloride Level 109H, Carbon Dioxide Level 26, Anion Gap 8, Blood Urea Nitrogen 15, Creatinine 1.5H, Estimat Glomerular Filtration Rate 47.7, Glucose Level 88, Calcium Level 8.9, Phosphorus Level 3.3, Magnesium Level 2.3, Total Bilirubin 0.4, Aspartate Amino Transf (AST/SGOT) 25, Alanine Aminotransferase (ALT/SGPT) 33, Alkaline Phosphatase 85, Total Protein 7.1, Albumin 3.5, Globulin 3.6, Albumin/Globulin Ratio 1.0 Height (Feet): 5 Height (Inches): 9.00 Weight (Pounds): 195 General Appearance: lethargic EENT: normal ENT inspection Neck: normal alignment Cardiovascular: normal peripheral pulses, normal rate, regular rhythm Respiratory/Chest: chest wall non-tender, lungs clear, normal breath sounds Abdomen: normal bowel sounds, non tender, soft Extremities: normal inspection Edema: no edema noted Arm (L), no edema noted Arm (R), no edema noted Leg (L), no edema noted Leg (R), no edema noted Pedal (L), no edema noted Pedal (R), no edema noted Generalized Neurologic: responsive, motor weakness Skin: normal pigmentation, warm/dry Mansoor Villafuerte DO Jun 06, 2018 14:00
[2018-06-06 16:00] VITALS: BP 86/52
[2018-06-06] MEDS: Montelukast 10mg tablet ORAL SCH (16:41)
[2018-06-06] MEDS ORDERED: Docusate 100mg cap ORAL SCH (18:00)
[2018-06-06] MEDS ORDERED: Lactulose 20gm/30ml UDC ORAL SCH (18:00)
[2018-06-06 18:01] VITALS: BP 101/84
[2018-06-06] MEDS ORDERED: Miralax 17gm pkt ORAL SCH (21:00)
--- NOTE | 2018-06-07 02:15 | Consultation ---
DATE OF CONSULTATION: 06/05/2018 PSYCHOTHERAPY CONSULTATION PROGRESS NOTE CONSULTING PHYSICIAN: Segundo Holley M.D. TREATING ATTENDING PHYSICIAN: Mansoor Villafuerte D.O. HISTORY OF PRESENT ILLNESS: The patient is a 62-year-old male patient, who has a longstanding history of mental illness. He is from [facility]. He was brought in to the hospital for nausea, hyponatremia, and reflux. The patient has been displaying agitation, irritability, severe anxiety, poor frustration tolerance, has anger and irritability, and for these reasons, he was referred for psychotherapeutic services. This clinician assessed this patient. The patient states that he is in pain, feeling very helpless and hopeless, and for these reasons, he is very agitated and irritable. The patient states that he has physical discomfort. He was yelling and screaming with difficulty regulating his mood and affect due to poor frustration tolerance. He denies suicidal or homicidal thoughts of ideation. Denies any auditory or visual hallucinations. due to his physical distress and discomfort. He is cooperative and able to communicate with this clinician. PAST MEDICAL HISTORY: History of hyponatremia, hypothyroidism, asthma, and chronic obstructive pulmonary disease. ALLERGIES: The patient is allergic to Zoloft, Depakote, Haldol, Thorazine, and Clozaril. SUBSTANCE ABUSE HISTORY: The patient denies history of alcohol use, illicit substances, or smoking cigarettes. PSYCHIATRIC HISTORY: The patient has a history of paranoid schizophrenia and has been treated with psychotropic medications in the past and has been hospitalized in the psychiatric hospital. SOCIAL HISTORY: The patient is a 62-year-old male patient from [facility]. Financially sustained through [employer]. MENTAL STATUS EXAMINATION: The patient is alert and oriented to person, place, and time. His mood is irritable. Affect is congruent. Thought process, slightly disorganized. He has poor attention and concentration. He has poor insight, judgment, and impulse control. DIAGNOSIS: Schizophrenia, paranoid type. PLAN: This clinician assessed this patient and assessed the patient's mental status. Provided the patient with supportive psychotherapy, cognitive behavioral intervention, reality orientation, working on increasing compliance with treatment milieu and coping skills. Provided the patient with . Reviewed the patient's chart and discussed the treatment with treatment team. Continue with behavioral management. Segundo Holley PsyD. DR: DANIA JOB#: [id number] CC:
--- NOTE | 2018-06-07 04:45 | Progress Note ---
DATE: 06/06/2018 NOTE: POOR AUDIO SUBJECTIVE: The patient is a 62-year-old male, high levels of anxiety, depression, confusion, mood lability. No suicidality, but high levels of depression, anxiety, and mood lability. MENTAL STATUS EXAMINATION: The patient is a 62-year-old male. Appearance is disheveled. Attitude, irritable and agitated. Affect is guarded and restricted. Intellect poor. Mood is depressed and anxious. Motor activity, psychomotor agitation. Attention span is poor. Orientation x2. Speech is pressured. Thought process, disorganized and illogical. Thought content, auditory hallucinations and paranoid delusions. Insight and judgment is poor. is poor. . DIAGNOSIS: Paranoid schizophrenia. PLAN: Continue to treat this patient with Abilify 10 mg daily and Zyprexa 5 mg twice a day. An 18 to 20 minutes of cognitive behavioral therapy. identifying this patient's negative thoughts . Chart reviewed. Discussed with staff. Seen and assessed in his room. Shantanu Way M.D. DR: CARMINE JOB#: [id number] CC:
[2018-06-07] MEDS ORDERED: Sennosides 8.6mg ORAL SCH (09:00)
--- NOTE | 2018-06-07 09:38 | Discharge Summary ---
Discharge Summary Discharge Summary _ DATE OF ADMISSION: 06/03/2018 DATE OF DISCHARGE: 06/06/2018 CONSULTANTS: Dr. Shantanu Holley [facility] COURSE: Patient is a 62-year-old male, from [facility], presented with abdominal pain and vomiting. Problem has been ongoing for a couple of weeks. He was seen at the emergency room and CT scan initially showed enteritis. He was discharged back to long term. He presented again to ED, for complaints of ongoing abdominal pain and vomiting. He has psychiatric history. 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 Now, he thinks long term was putting rat feces in his food. He denied any suicidal or homicidal thoughts. He had nonbloody and nonbilious vomiting once to twice per day. He complained of abdominal cramping, denied diarrhea, denied fever or chills. On evaluation at ED, blood work showed hyponatremia, sodium level of 124. Creatinine was elevated to 1.4. Because of persistent vomiting and hyponatremia , he was admitted for further management. He was seen by Dr. Garcia, he had hyponatremia which was depletional, supported by a low urine sodium and osmolality levels. He was given IV hydration. He was seen by GI. He was given symptomatic treatment. He was placed on probiotics. He had constipation and was given bowel regimen consisting of Colace, MiraLAX and magnesium citrate. He refused GI procedures. Diet was advanced. He was noted to have elevated TSH to 4. Levothyroxine was ordered to increase to 50 g. Repeat TSH was normal. He was continued on levothyroxine 25 g. Recommend repeat TSH in a month. He underwent psychiatric evaluation. Patient was confused, disorganized, agitated, irritable, depressed and anxious. He was diagnosed with paranoid schizophrenia in acute exacerbation. He was given Abilify 10 mg daily, Zyprexa 5 mg twice a day. He was given psychotherapy. He was placed on Klonopin. He had history of COPD, he was given breathing treatment and was continued on Advair. Sodium level improved. There was no vomiting noted. He had BM x 2. He was tolerating diet. He was eventually discharged back to long term. FINAL DIAGNOSES: Hyponatremia. Paranoid schizophrenia with acute exacerbation. Hypothyroidism COPD Asthma Constipation Gastritis Chronic renal failure DISPOSITION: Patient was discharged to [facility]. DISCHARGE MEDICATIONS: Refer to Discharge Medication List. I have been assigned to dictate discharge summary on this account, and I was not involved in the patient's management. Kalli Mcadams NP Jun 07, 2018 09:38
--- NOTE | 2018-06-07 13:45 | Progress Note ---
SUBJECTIVE: The patient is a -vjqx-kgd male who came to the hospital anxiety and depression. MENTAL STATUS EXAMINATION: The patient is a -[id number]-glm male. Appearance is disheveled. Attitude, irritable and agitated. Affect is guarded and restricted. Intellect poor. Mood is depressed and anxious. Motor activity, psychomotor agitation. Attention span is poor. Orientation x2. Speech is pressured. Thought process, disorganized and illogical. Thought content, auditory hallucinations and paranoid delusions. Insight and judgment is poor. DIAGNOSIS: . PLAN: Continue to treat this patient . An 18 to 20 minutes of cognitive behavioral therapy as well. . Chart reviewed. Discussed with staff. . Shantanu Way M.D. DR: MAGNOLIA JOB#: [id number] CC:
--- NOTE | 2018-06-08 00:30 | Progress Note ---
DATE: 06/06/2018 NOTE: POOR AUDIO PSYCHOTHERAPY CONSULTATION PROGRESS NOTE TREATING ATTENDING PHYSICIAN: Mansoor Villafuerte D.O. SUBJECTIVE: This patient is a 62-year-old male patient. The patient has had helplessness and hopelessness, irritability, oriented to person, place, and time. The patient states that he was able to sleep last night and states . The patient has no logical or viable plan for self-care or safety. Denies suicidal or homicidal thoughts of ideation. The patient was cooperative and able to communicate clinician. He states that he does not have any auditory or visual hallucinations. He feels irritable in the hospital setting, however, he is looking forward to returning back to his nursing facility. He is cooperative, able to communicate, alert and oriented to person and place. Mood is irritable. Affect is blunted. Thought process is disorganized. PLAN: Assessed this patient, assessed the patient's mental status. Provided him with reality orientation and supportive psychotherapy. Encouraging the patient to participate in treatment milieu, and coping skills. Continue with behavioral management. This clinician has reviewed the patient's chart and discussed the treatment with the treatment team. Segundo Holley PsyD. DR: LINDA JOB#: [id number] CC:
[2018-06-08] MEDS ORDERED: Fleet's Mineral Oil Enema RECTAL SCH (09:00)
== END 2018-06-06 19:30 | DRG 641 ==
LOC: EDBD 20:20 → EMR 20:44 → 4E 20:48 → EDBEDREQ 21:59
DX: E87.1 Hypo-osmolality and hyponatremia (principal); F20.0 Paranoid schizophrenia; E03.9 Hypothyroidism, unspecified; J44.9 Chronic obstructive pulmonary disease, unspecified; K59.00 Constipation, unspecified; K29.70 Gastritis, unspecified, without bleeding; N18.9 Chronic kidney disease, unspecified; Z88.8 Allergy status to other drugs, medicaments and biological substances; D64.9 Anemia, unspecified; F31.9 Bipolar disorder, unspecified
CPT/HCPCS: 36415; 80053; 80061; 81001; 81003; 82607; 82746; 82977; 83036; 83690; 83735; 83880; 83930; 83935; 84100; 84300; 84439; 84443; 84481; 84550; 85025; 86140; 87081; 94640; J2405

== ENCOUNTER 2018-06-09 23:56 | Emergency (ER) | payer MEDICARE, OTHER ==
[~2018-06-09] VITALS: Ht 175.3 cm; Wt 79.4 kg
[~2018-06-09 23:56] MED LIST changes: +ABILIFY10 MG ORAL; +ACETAMINOPHEN325 M1 ORAL; +ADVAIR HFA 115-12 GM INH; +ALBUTEROL2.5 MG/3 M INH; +COLACE100 MG ORAL; +CRANBERRY450 M3 PO; +IBUPROFEN600 MG ORAL; +KLONOPIN1 MG ORAL; +LORAZEPAM0.5 MG ORAL; +PROSCAR5 MG ORAL; +PROTONIX40 MG ORAL; +RESTORIL15 MG ORAL; +SINGULAIR10 MG ORAL; +SYNTHROID25 MCG ORAL; +TAMSULOSIN HCL0.4 MG ORAL; +TEMAZEPAM7.5 MG ORAL; +TOPIRAMATE100 MG ORAL; +TRAMADOL HCL50 MG ORAL; +ZYPREXA5 MG ORAL
[2018-06-10 00:03] VITALS: BP 113/72
[2018-06-10 01:19] LABS: BASOPHILS % (AUTO) 0.9 % (0.0-2.0); EOSINOPHILS % (AUTO) 4.3 % (0.0-3.0); HEMATOCRIT 39.2 % (42.0-52.0); HEMOGLOBIN 13.1 G/DL (14.2-18.0); LYMPHOCYTES % (AUTO) 19.6 % (20.0-45.0); MEAN CORPUSCULAR VOLUME 88 FL (80-99); MONOCYTES % (AUTO) 8.9 % (1.0-10.0); NEUTROPHILS % (AUTO) 66.2 % (45.0-75.0); PLATELET COUNT 260 K/UL (150-450); RED BLOOD COUNT 4.45 M/UL (4.70-6.10); RED CELL DISTRIBUTION WIDTH 11.7 % (11.6-14.8); WHITE BLOOD COUNT 6.5 K/UL (4.8-10.8)
[2018-06-10 01:25] VITALS: BP 97/61
[2018-06-10 02:16] LABS: ANION GAP 9 mmol/L (5-15); BLOOD UREA NITROGEN 19 mg/dL (7-18); CALCIUM 9.3 MG/DL (8.5-10.1); CARBON DIOXIDE 27 MMOL/L (21-32); CHLORIDE 101 MMOL/L (98-107); CREATININE 1.7 MG/DL (0.55-1.30); POTASSIUM 3.8 MMOL/L (3.5-5.1); SODIUM 137 MMOL/L (136-145)
--- NOTE | 2018-06-10 02:31 | Emergency Room Report ---
History of Present Illness General Chief Complaint: Generalized Weakness Source: Patient Present Illness HPI This patient was referred here from [facility] for generalized weakness. The patient does not have specific complaint. He was d/c here about 1.5 days ago with hyponatremia/psych. At d/c sodium 143 from low of 123. At SNF he is eating/ drinking normally, no report of fever or vomiting. No abd pain. Allergies: Coded Allergies: CHLORPROMAZINE (Unverified Allergy, Unknown, 05/24/18) CLOZAPINE (Unverified Allergy, Unknown, 05/24/18) DIVALPROEX SODIUM (Unverified Allergy, Unknown, 05/24/18) HALOPERIDOL (Unverified Allergy, Unknown, 05/24/18) SERTRALINE (Unverified Allergy, Unknown, 05/24/18) Nursing Documentation-PMH Hx Asthma: Yes Hx COPD: Yes Hx Cancer: Yes Hx Gastrointestinal Problems: Yes - GERD History Of Psychiatric Problem: Yes - bipolar Hx Seizures: Yes Review of Systems Constitutional: Denies: fever Eye: Denies: acuity changes Respiratory: Denies: cough, shortness of breath Cardiovascular: Denies: chest pain Gastrointestinal: Denies: nausea, vomiting Skin: Denies: rash Neurological: Denies: headache Physical Exam Vital Signs Date Time Temp Pulse Resp B/P (MAP) Pulse Ox O2 Delivery O2 Flow Rate FiO2 06/09/18 23:51 97.6 72 16 80/50 92 Room Air 97.5 General Appearance: well appearing, no apparent distress Head: normocephalic, atraumatic ENT: hearing grossly normal, normal voice Neck: full range of motion, supple Respiratory: no respiratory distress, speaking full sentences Gastrointestinal: normal inspection, normal bowel sounds, non tender Musculoskeletal: no calf tenderness Neurologic: alert, normal gait Psychiatric: mood/affect normal Skin: no rash Medical Decision Making Diagnostic Impression: Primary Impression: Episode of generalized weakness Last Vital Signs Date Time Temp Pulse Resp B/P (MAP) Pulse Ox O2 Delivery O2 Flow Rate FiO2 06/10/18 01:25 60 13 97/61 99 Room Air 06/09/18 23:51 97.6 97.5 Disposition: HOME, SELF-CARE Condition: Stable Referrals: NOT CHOSEN IPA/,REFERRING (PCP) Patient Instructions: Rob Alex M.D. Jun 10, 2018 02:31
[2018-06-10 03:17] VITALS: BP 109/66
== END 2018-06-10 03:19 | disposition home or self-care (01) ==
LOC: EDBD 23:56 → EMR 06-10 01:50
DX: R53.1 Weakness (principal); J44.9 Chronic obstructive pulmonary disease, unspecified; K21.9 Gastro-esophageal reflux disease without esophagitis; F31.9 Bipolar disorder, unspecified; Z88.8 Allergy status to other drugs, medicaments and biological substances
CPT/HCPCS: 36415; 80048; 85025; 99283

== ENCOUNTER 2018-07-23 19:38 | Inpatient (IN) | payer MEDICARE, OTHER ==
[~2018-07-23] VITALS: Ht 162.6 cm; Wt 84.8 kg
[2018-07-23] MEDS ORDERED: NS 1000ml 2,200 ML IVLG ONE (19:45)
--- NOTE | 2018-07-23 20:15 | Emergency Room Report ---
History of Present Illness General Chief Complaint: Male Urogenital Problems Source: Patient, Medical Record, PMD Present Illness HPI This patient presents from a alf facility. He complains of pain in his left flank and left lower quadrant of his abdomen. Per report from the alf facility, the patient was having difficulty urinating and had stated he was unable to urinate all day today. There is no reported fever or chills. There is no report of nausea or vomiting. There are no other complaints. Allergies: Coded Allergies: CHLORPROMAZINE (Unverified Allergy, Unknown, 05/24/18) CLOZAPINE (Unverified Allergy, Unknown, 05/24/18) DIVALPROEX SODIUM (Unverified Allergy, Unknown, 05/24/18) HALOPERIDOL (Unverified Allergy, Unknown, 05/24/18) SERTRALINE (Unverified Allergy, Unknown, 05/24/18) Uncoded Allergies: CLOZASIL (Allergy, Unknown, 07/23/18) Patient History Past Medical History: see triage record, asthma, COPD, GERD, psych hx - schizophrenia, other - BPH, pancreatitis Social History: Denies: smoking, alcohol use, drug use Reviewed Nursing Documentation: PMH: Agreed; PSxH: Agreed Nursing Documentation-PMH Past Medical History: No History, Except For Hx Asthma: Yes Hx COPD: Yes Hx Cancer: Yes Hx Gastrointestinal Problems: Yes - GERD, pancreatitis History Of Psychiatric Problem: Yes - Bipolar, Major depression, schizophrenia , anxiety Hx Seizures: Yes Review of Systems All Other Systems: negative except mentioned in HPI Physical Exam Vital Signs Date Time Temp Pulse Resp B/P (MAP) Pulse Ox O2 Delivery O2 Flow Rate FiO2 07/23/18 19:34 98.4 101 18 108/75 95 Room Air 98.4 Sp02 EP Interpretation: reviewed, normal General Appearance: no apparent distress, alert, GCS 15, non-toxic Head: normocephalic, atraumatic Eyes: bilateral eye normal inspection, bilateral eye PERRL ENT: hearing grossly normal, normal pharynx, no angioedema, normal voice Neck: full range of motion, supple/symm/no masses Respiratory: chest non-tender, lungs clear, normal breath sounds, no respiratory distress, no retraction, no accessory muscle use, speaking full sentences Cardiovascular #1: regular rate, rhythm, no edema Gastrointestinal: normal bowel sounds, soft, non-distended, no guarding, no rebound, tenderness - TTP in the LLQ and suprapubic region Rectal: deferred Musculoskeletal: back normal, gait/station normal, normal range of motion, non- tender Neurologic: alert, responsive, motor strength/tone normal, sensory intact, speech normal, grossly normal Psychiatric: memory normal, mood/affect normal, no suicidal/homicidal ideation Skin: normal color, no rash, warm/dry, well hydrated Medical Decision Making Diagnostic Impression: Primary Impression: Urinary retention ER Course She is found to have urinary retention. A Ramirez catheter was placed. There is no evidence of infection at this time. The patient also has renal insufficiency. The patient will be admitted for further evaluation by urology and for monitoring. Laboratory Tests Test 07/23/18 19:44 07/23/18 20:40 07/23/18 21:18 Lactic Acid Level Pending White Blood Count 6.9 K/UL (4.8-10.8) Red Blood Count 4.52 M/UL (4.70-6.10) L Hemoglobin 13.3 G/DL (14.2-18.0) L Hematocrit 40.2 % (42.0-52.0) L Mean Corpuscular Volume 89 FL (80-99) Mean Corpuscular Hemoglobin 29.4 PG (27.0-31.0) Mean Corpuscular Hemoglobin Concent 33.1 G/DL (32.0-36.0) Red Cell Distribution Width 11.8 % (11.6-14.8) Platelet Count 141 K/UL (150-450) L Mean Platelet Volume 6.5 FL (6.5-10.1) Neutrophils (%) (Auto) 68.7 % (45.0-75.0) Lymphocytes (%) (Auto) 18.1 % (20.0-45.0) L Monocytes (%) (Auto) 7.3 % (1.0-10.0) Eosinophils (%) (Auto) 3.7 % (0.0-3.0) H Basophils (%) (Auto) 2.1 % (0.0-2.0) H Sodium Level 146 MMOL/L (136-145) H Potassium Level 4.3 MMOL/L (3.5-5.1) Chloride Level 113 MMOL/L (98-107) H Carbon Dioxide Level 19 MMOL/L (21-32) L Anion Gap 14 mmol/L (5-15) Blood Urea Nitrogen 30 mg/dL (7-18) H Creatinine 1.8 MG/DL (0.55-1.30) H Estimate Glomerular Filtration Rate 38.7 mL/min (>60) Glucose Level 97 MG/DL (74-106) Calcium Level 9.3 MG/DL (8.5-10.1) Total Bilirubin 0.4 MG/DL (0.2-1.0) Aspartate Amino Transferase (AST) 25 U/L (15-37) Alanine Aminotransferase (ALT) 18 U/L (12-78) Alkaline Phosphatase 104 U/L (46-116) Total Creatine Kinase 78 U/L (26-308) Creatine Kinase MB 0.8 NG/ML (0.0-3.6) Creatine Kinase MB Relative Index 1.0 Troponin I 0.000 ng/mL (0.000-0.056) Total Protein 7.7 G/DL (6.4-8.2) Albumin 4.0 G/DL (3.4-5.0) Globulin 3.7 g/dL Albumin/Globulin Ratio 1.1 (1.0-2.7) Urine Color Pale yellow Urine Appearance Clear Urine pH 6.5 (4.5-8.0) Urine Specific [place] 1.005 (1.005-1.035) Urine Protein Negative (NEGATIVE) Urine Glucose (UA) Negative (NEGATIVE) Urine Ketones Negative (NEGATIVE) Urine Blood Negative (NEGATIVE) Urine Nitrite Negative (NEGATIVE) Urine Bilirubin Negative (NEGATIVE) Urine Urobilinogen Normal MG/DL (0.0-1.0) Urine Leukocyte Esterase Negative (NEGATIVE) Laboratory Tests Test 07/23/18 19:44 07/23/18 20:40 Lactic Acid Level Pending White Blood Count Pending Red Blood Count Pending Hemoglobin Pending Hematocrit Pending Mean Corpuscular Volume Pending Mean Corpuscular Hemoglobin Pending Mean Corpuscular Hemoglobin Concent Pending Red Cell Distribution Width Pending Platelet Count Pending Mean Platelet Volume Pending Neutrophils (%) (Auto) Pending Lymphocytes (%) (Auto) Pending Monocytes (%) (Auto) Pending Eosinophils (%) (Auto) Pending Basophils (%) (Auto) Pending Sodium Level Pending Potassium Level Pending Chloride Level Pending Carbon Dioxide Level Pending Blood Urea Nitrogen Pending Creatinine Pending Estimate Glomerular Filtration Rate Pending Glucose Level Pending Calcium Level Pending Total Bilirubin Pending Aspartate Amino Transferase (AST) Pending Alanine Aminotransferase (ALT) Pending Alkaline Phosphatase Pending Total Creatine Kinase Pending Creatine Kinase MB Pending Troponin I Pending Total Protein Pending Albumin Pending Globulin Pending EKG Diagnostic Results Rate: normal Rhythm: NSR ST Segments: no acute changes Rhythm Strip Diag. Results EP Interpretation: yes Rate: 90's Rhythm: NSR, no PVC's, no ectopy Last Vital Signs Date Time Temp Pulse Resp B/P (MAP) Pulse Ox O2 Delivery O2 Flow Rate FiO2 07/23/18 19:34 98.4 101 18 108/75 95 Room Air 98.4 Disposition: ADMITTED INPATIENT Condition: Stable Margarita Carmona DO Jul 23, 2018 20:15
[2018-07-23 21:22] VITALS: BP 105/68
[2018-07-23 21:29] LABS: BASOPHILS % (AUTO) 2.1 % (0.0-2.0); EOSINOPHILS % (AUTO) 3.7 % (0.0-3.0); HEMATOCRIT 40.2 % (42.0-52.0); HEMOGLOBIN 13.3 G/DL (14.2-18.0); LYMPHOCYTES % (AUTO) 18.1 % (20.0-45.0); MEAN CORPUSCULAR VOLUME 89 FL (80-99); MONOCYTES % (AUTO) 7.3 % (1.0-10.0); NEUTROPHILS % (AUTO) 68.7 % (45.0-75.0); PLATELET COUNT 141 K/UL (150-450); RED BLOOD COUNT 4.52 M/UL (4.70-6.10); RED CELL DISTRIBUTION WIDTH 11.8 % (11.6-14.8); WHITE BLOOD COUNT 6.9 K/UL (4.8-10.8)
[2018-07-23 21:40] LABS: APPEARANCE,URINE CLEAR; BILIRUBIN, URINE NEGATIVE (NEGATIVE); COLOR,URINE PALE YELLOW; GLUCOSE, URINE (UA) NEGATIVE (NEGATIVE); KETONES,URINE NEGATIVE (NEGATIVE); LEUKOCYTE ESTERASE ,URINE NEGATIVE (NEGATIVE); NITRITE,URINE NEGATIVE (NEGATIVE); PH,URINE 6.5 (4.5-8.0); PROTEIN,URINE NEGATIVE (NEGATIVE); UROBILINOGEN,URINE NORMAL MG/DL (0.0-1.0)
[2018-07-23] MEDS ORDERED: cefTRIAXone 1 GM in NS 55 ML IVPB ONE (21:45)
[2018-07-23 21:57] LABS: ALANINE AMINOTRANSFERASE 18 U/L (12-78); ALBUMIN/GLOBULIN RATIO 1.1 (1.0-2.7); ALKALINE PHOSPHATASE 104 U/L (46-116); ANION GAP 14 mmol/L (5-15); ASPARTATE AMINO TRANSFERASE 25 U/L (15-37); BILIRUBIN,TOTAL 0.4 MG/DL (0.2-1.0); BLOOD UREA NITROGEN 30 mg/dL (7-18); CALCIUM 9.3 MG/DL (8.5-10.1); CARBON DIOXIDE 19 MMOL/L (21-32); CHLORIDE 113 MMOL/L (98-107); CKMB 0.8 NG/ML (0.0-3.6); CREATINE KINASE 78 U/L (26-308); CREATININE 1.8 MG/DL (0.55-1.30); POTASSIUM 4.3 MMOL/L (3.5-5.1); SODIUM 146 MMOL/L (136-145)
[2018-07-23 22:40] VITALS: BP 111/59
[2018-07-23] MEDS ORDERED: FLEET ENEMA133 M1 RC (22:56)
[2018-07-23] MEDS ORDERED: SEROQUEL50 MG ORAL (22:56)
[2018-07-23] MEDS ORDERED: AMBIEN5 MG ORAL (22:56)
[2018-07-23] MEDS ORDERED: DULCOLAX10 MG RC (22:56)
[2018-07-23] MEDS ORDERED: KLONOPIN2 MG PO (22:56)
[2018-07-23] MEDS ORDERED: ATIVAN0.5 MG ORAL (22:56)
[2018-07-23] MEDS ORDERED: MILK OF MA400 MG/51 ORAL (22:56)
[2018-07-24] VITALS: BP 126/80
[2018-07-24] MEDS ORDERED: D5 1/2NS 1,000 ML IV SCH (03:45)
[2018-07-24 04:00] VITALS: BP 112/72
[2018-07-24] MEDS ORDERED: LORazepam 0.5mg tab ORAL PRN (04:00)
[2018-07-24] MEDS ORDERED: Loperamide 2mg cap ORAL PRN (04:00)
[2018-07-24] MEDS ORDERED: Albuterol ud Inhalation HHN PRN (04:00)
[2018-07-24] MEDS ORDERED: LORazepam 1mg tab ORAL PRN (04:15)
[2018-07-24] MEDS: Levothyroxine 25mcg tab ORAL SCH (05:52)
[2018-07-24] MEDS: traMADol 50mg tab ORAL PRN ×3 (05:53→20:47)
[2018-07-24 06:50] LABS: BASOPHILS % (AUTO) 1.1 % (0.0-2.0); EOSINOPHILS % (AUTO) 3.3 % (0.0-3.0); HEMATOCRIT 38.9 % (42.0-52.0); HEMOGLOBIN 12.8 G/DL (14.2-18.0); LYMPHOCYTES % (AUTO) 18.1 % (20.0-45.0); MEAN CORPUSCULAR VOLUME 89 FL (80-99); MONOCYTES % (AUTO) 7.3 % (1.0-10.0); NEUTROPHILS % (AUTO) 70.2 % (45.0-75.0); PLATELET COUNT 221 K/UL (150-450); RED BLOOD COUNT 4.37 M/UL (4.70-6.10); WHITE BLOOD COUNT 7.4 K/UL (4.8-10.8)
[2018-07-24 07:00] LABS: ANION GAP 10 mmol/L (5-15); BLOOD UREA NITROGEN 25 mg/dL (7-18); CALCIUM 8.6 MG/DL (8.5-10.1); CARBON DIOXIDE 21 MMOL/L (21-32); CHLORIDE 119 MMOL/L (98-107); CREATININE 1.7 MG/DL (0.55-1.30); POTASSIUM 3.9 MMOL/L (3.5-5.1); SODIUM 150 MMOL/L (136-145)
[2018-07-24] MEDS: OLANZapine 10mg tab ORAL SCH ×2 (08:15→18:12)
[2018-07-24 08:53] VITALS: BP 120/74
--- NOTE | 2018-07-24 10:20 | Diagnostic Imaging Report ---
Indication: Dyspnea Comparison: None A single view chest radiograph was obtained. Findings: Cardiomediastinal appearance is within normal limits for age. Pulmonary vascularity is appropriate. The diaphragmatic contour is smooth and costophrenic angles are sharp. No pleural effusions are identified. There are old rib fractures noted bilaterally. Impression: No acute findings
--- NOTE | 2018-07-24 11:00 | Consultation ---
DATE OF CONSULTATION: 07/24/2018 HISTORY OF PRESENT ILLNESS: This is a male patient who is 62 years old. This patient continues to have some confusion, disorganized thought process, and mood lability. The reason why this patient came into the hospital is apparently this patient was over in his facility at [facility] and he had difficulty urinating and behavioral issues. staff. He got very combative and agitated but also he has pyelonephritis and confusion, worsened by stress of his medical illness. So, he does require daily psychiatric consultation on the unit because of his mood lability and agitation, but he also came in with UTI and pyelonephritis. PAST MEDICAL HISTORY: The patient has a history of hypothyroidism, COPD, asthma, constipation, small intestinal bacterial overgrowth, urinary tract infection, and pyelonephritis. ALLERGIES: Thorazine, Clozaril, Depakote, Haldol, and Zoloft. MEDICATIONS: Psychotropic medications on admission, the patient was on Zyprexa 5 mg twice a day per chart and Seroquel 50 mg twice a day, but he has a lot of irritability and agitation. FAMILY PSYCHIATRIC HISTORY: Denies. SOCIAL HISTORY: Lives in [facility], financially supported by [employer] and Medicare. SUBSTANCE ABUSE HISTORY: Denies drug or alcohol use. PSYCHIATRIC HISTORY: He has had multiple psychiatric admissions. MENTAL STATUS EXAMINATION: This is a 62-year-old male patient. Appearance is disheveled. Attitude is irritable and agitated. Affect, guarded and restricted. Intellect poor. Mood is depressed and anxious. Motor activity, psychomotor agitation. Attention span is poor. Orientation x2. Speech is pressured. Thought process disorganized and illogical. Thought content, auditory hallucinations and paranoid delusions. Insight and judgment is poor. DIAGNOSES: 1. Paranoid schizophrenia with acute exacerbation. 2. Medical - urinary tract infection and pyelonephritis. 3. Psychosocial stressors, financial. PLAN: Plan for this patient, we will treat him with a medication regimen of Zyprexa 10 mg twice a day to stabilize his mood, reduce depression, anxiety, and reduce psychosis to stabilize his mood. Provide him with 20 minutes of cognitive behavioral therapy to identify his automatic negative thoughts and help him to convert those negative thoughts to more positive thoughts to reduce depression and anxiety. Chart was reviewed. Discussed with staff. Seen and assessed in his room. I would like to thank Dr. Mansoor Villafuerte for this interesting consultation. I will be happy to follow this patient with you throughout the hospital course. Shantanu Way M.D. DR: ISMAEL JOB#: [id number] CC:
[2018-07-24 12:28] VITALS: BP 123/77
--- NOTE | 2018-07-24 13:37 | Consultation ---
History of Present Illness General Date patient seen: Jul 24, 2018 Chief Complaint: Male Urogenital Problems Present Illness HPI 62 year old male with hx of COPD, psychosis presents from a [facility] facility with CC of left flank and left lower quadrant pain in abdomen. t patient was having difficulty urinating and had stated he was unable to urinate all day today. Pt was found to have renal failure and be anemic. He is admitted for further work up. Allergies: Coded Allergies: CHLORPROMAZINE (Unverified Allergy, Unknown, 05/24/18) CLOZAPINE (Unverified Allergy, Unknown, 05/24/18) DIVALPROEX SODIUM (Unverified Allergy, Unknown, 05/24/18) HALOPERIDOL (Unverified Allergy, Unknown, 05/24/18) SERTRALINE (Unverified Allergy, Unknown, 05/24/18) Uncoded Allergies: CLOZASIL (Allergy, Unknown, 07/23/18) Medication History Scheduled Aripiprazole* (Abilify*), 10 MG ORAL DAILY, (Reported) Bisacodyl (Dulcolax), 10 MG RC DAILY, (Reported) Clonazepam (Klonopin), 2 MG PO TID, (Reported) Clonazepam* (Klonopin*), 2 MG ORAL TID, (Reported) Cranberry Fruit Concentrate (Cranberry), 450 MG PO DAILY, (Reported) Docusate Sodium* (Colace*), 250 MG ORAL BID, (Reported) Finasteride* (Proscar*), 5 MG ORAL DAILY, (Reported) Fluticasone/Salmeterol (Advair Hfa 115-21 Mcg Inhaler), 2 PUFFS INH EVERY 12 HOURS, (Reported) Levothyroxine Sodium* (Synthroid*), 25 MCG ORAL DAILY, (Reported) Lorazepam* (Lorazepam*), 0.5 MG ORAL THREE TIMES A DAY, (Reported) Lorazepam* (Ativan*), 0.5 MG ORAL Q4HR, (Reported) Magnesium Hydroxide* (Milk Of Magnesia*), 30 ML ORAL Q72H, (Reported) Montelukast Sodium* (Singulair*), 10 MG ORAL QPM, (Reported) Na Phos,M-B/Na Phos,Di-Ba (Fleet Enema), 133 ML RC qtwo days, (Reported) Olanzapine* (Zyprexa*), 5 MG ORAL BID, (Reported) Pantoprazole* (Protonix*), 40 MG ORAL DAILY, (Reported) Quetiapine Fumarate (Seroquel), 50 MG ORAL TWICE A DAY, (Reported) Tamsulosin Hcl (Tamsulosin Hcl*), 0.4 MG ORAL BEDTIME, (Reported) Topiramate* (Topamax*), 100 MG ORAL QHS, (Reported) Scheduled PRN Acetaminophen* (Acetaminophen 325MG Tablet*), 325 MG ORAL Q4H PRN for Mild Pain/ Temp > 100.5, (Reported) Acetaminophen* (Acetaminophen 325MG Tablet*), 650 MG ORAL Q4H PRN for Moderate Pain (Pain Scale 4-6), (Reported) Albuterol Sulfate* (Albuterol Sulfate Hhn*), 3 ML INH Q4H PRN for Shortness of Breath, (Reported) Ibuprofen* (Motrin*), 400 MG ORAL TID PRN for For Pain, (Reported) Ondansetron (Zofran), 4 MG ORAL Q6H PRN for Nausea & Vomiting Temazepam* (Restoril*), 15 MG ORAL BEDTIME PRN for Insomnia, (Reported) Tramadol Hcl* (Ultram*), 50 MG ORAL Q12HR PRN for For Pain, (Reported) Zolpidem Tartrate* (Ambien*), 5 MG ORAL BEDTIME PRN for Insomnia, (Reported) Patient History Healthcare decision maker Resuscitation status Advanced Directive on File Yes Past Medical/Surgical History Past Medical/Surgical History: (1) COPD (chronic obstructive pulmonary disease) (2) Hypothyroidism (3) Psychosis Review of Systems All Other Systems: negative except mentioned in HPI Physical Exam General Appearance: WD/WN, no apparent distress Lines, tubes and drains: peripheral HEENT: normocephalic, atraumatic Neck: non-tender, normal alignment Respiratory/Chest: chest wall non-tender, lungs clear Breasts: no masses Cardiovascular/Chest: normal peripheral pulses, normal rate Abdomen: normal bowel sounds, non tender Genitourinary/Rectal: normal genital exam Extremities: normal range of motion Skin Exam: normal pigmentation Neurologic: life guard II-XII grossly normal Last 24 Hour Vital Signs Date Time Temp Pulse Resp B/P (MAP) Pulse Ox O2 Delivery O2 Flow Rate FiO2 07/24/18 12:28 97.8 92 20 123/77 (92) 98 97.8 07/24/18 12:23 97.8 07/24/18 11:53 98.1 07/24/18 09:22 95 16 Room Air 21 07/24/18 08:53 98.1 97 20 120/74 (89) 97 98.1 07/24/18 08:15 Room Air 07/24/18 04:00 97.9 74 17 112/72 (85) 98 97.9 07/24/18 00:00 97.7 72 18 126/80 (95) 98 97.7 07/23/18 23:53 Room Air 07/23/18 23:39 97.9 85 28 111/59 98 Room Air 07/23/18 22:40 97.9 85 28 111/59 98 Room Air 97.9 07/23/18 21:22 99.5 91 21 105/68 98 Room Air 99.5 07/23/18 19:34 98.4 101 18 108/75 95 Room Air 98.4 Intake and Output 07/23/18 07/24/18 19:00 07:00 Intake Total 1300 ml Output Total 1100 ml Balance 200 ml Intake Oral 300 ml IV Total 1000 ml Output Urine Total 1100 ml # Bowel Movements 3 Laboratory Tests Test 07/23/18 20:40 07/23/18 21:18 07/24/18 05:10 White Blood Count 6.9 K/UL (4.8-10.8) 7.4 K/UL (4.8-10.8) Red Blood Count 4.52 M/UL (4.70-6.10) L 4.37 M/UL (4.70-6.10) L Hemoglobin 13.3 G/DL (14.2-18.0) L 12.8 G/DL (14.2-18.0) L Hematocrit 40.2 % (42.0-52.0) L 38.9 % (42.0-52.0) L Mean Corpuscular Volume 89 FL (80-99) 89 FL (80-99) Mean Corpuscular Hemoglobin 29.4 PG (27.0-31.0) 29.2 PG (27.0-31.0) Mean Corpuscular Hemoglobin Concent 33.1 G/DL (32.0-36.0) 32.8 G/DL (32.0-36.0) Red Cell Distribution Width 11.8 % (11.6-14.8) 12.0 % (11.6-14.8) Platelet Count 141 K/UL (150-450) L 221 K/UL (150-450) # Mean Platelet Volume 6.5 FL (6.5-10.1) 6.1 FL (6.5-10.1) L Neutrophils (%) (Auto) 68.7 % (45.0-75.0) 70.2 % (45.0-75.0) Lymphocytes (%) (Auto) 18.1 % (20.0-45.0) L 18.1 % (20.0-45.0) L Monocytes (%) (Auto) 7.3 % (1.0-10.0) 7.3 % (1.0-10.0) Eosinophils (%) (Auto) 3.7 % (0.0-3.0) H 3.3 % (0.0-3.0) H Basophils (%) (Auto) 2.1 % (0.0-2.0) H 1.1 % (0.0-2.0) Sodium Level 146 MMOL/L (136-145) H 150 MMOL/L (136-145) H Potassium Level 4.3 MMOL/L (3.5-5.1) 3.9 MMOL/L (3.5-5.1) Chloride Level 113 MMOL/L (98-107) H 119 MMOL/L (98-107) H Carbon Dioxide Level 19 MMOL/L (21-32) L 21 MMOL/L (21-32) Anion Gap 14 mmol/L (5-15) 10 mmol/L (5-15) Blood Urea Nitrogen 30 mg/dL (7-18) H 25 mg/dL (7-18) H Creatinine 1.8 MG/DL (0.55-1.30) H 1.7 MG/DL (0.55-1.30) H Estimat Glomerular Filtration Rate 38.7 mL/min (>60) 41.3 mL/min (>60) Glucose Level 97 MG/DL (74-106) 89 MG/DL (74-106) Lactic Acid Level 0.80 mmol/L (0.4-2.0) Calcium Level 9.3 MG/DL (8.5-10.1) 8.6 MG/DL (8.5-10.1) Total Bilirubin 0.4 MG/DL (0.2-1.0) Aspartate Amino Transf (AST/SGOT) 25 U/L (15-37) Alanine Aminotransferase (ALT/SGPT) 18 U/L (12-78) Alkaline Phosphatase 104 U/L (46-116) Total Creatine Kinase 78 U/L (26-308) Creatine Kinase MB 0.8 NG/ML (0.0-3.6) Creatine Kinase MB Relative Index 1.0 Troponin I 0.000 ng/mL (0.000-0.056) Total Protein 7.7 G/DL (6.4-8.2) Albumin 4.0 G/DL (3.4-5.0) Globulin 3.7 g/dL Albumin/Globulin Ratio 1.1 (1.0-2.7) Urine Color Pale yellow Urine Appearance Clear Urine pH 6.5 (4.5-8.0) Urine Specific [place] 1.005 (1.005-1.035) Urine Protein Negative (NEGATIVE) Urine Glucose (UA) Negative (NEGATIVE) Urine Ketones Negative (NEGATIVE) Urine Blood Negative (NEGATIVE) Urine Nitrite Negative (NEGATIVE) Urine Bilirubin Negative (NEGATIVE) Urine Urobilinogen Normal MG/DL (0.0-1.0) Urine Leukocyte Esterase Negative (NEGATIVE) Height (Feet): 5 Height (Inches): 4.00 Weight (Pounds): 160 Medications Current Medications Medications (Trade) Dose Ordered Sig/Cori Route PRN Reason Start Time Stop Time Status Last Admin Dose Admin Acetaminophen (Tylenol) 325 mg Q4H PRN ORAL Mild Pain/Temp > 100.5 07/24/18 04:00 08/23/18 03:59 Albuterol Sulfate (Proventil) 2.5 mg Q4H PRN HHN Shortness of Breath 07/24/18 04:00 07/29/18 03:59 Clonazepam (KlonoPIN) 2 mg BID ORAL 07/24/18 09:00 07/31/18 08:59 07/24/18 08:15 Dextrose/Sodium Chloride 1,000 ml @ 60 mls/hr [id number] IV 07/24/18 03:45 08/23/18 03:44 07/24/18 05:55 Finasteride (Proscar) 5 mg DAILY ORAL 07/24/18 09:00 08/23/18 08:59 07/24/18 08:15 Levothyroxine Sodium (Synthroid) 25 mcg ACBREAKFAST ORAL 07/24/18 06:30 08/23/18 06:29 07/24/18 05:52 Loperamide HCl (Imodium) 2 mg Q4H PRN ORAL Diarrhea 07/24/18 04:00 08/23/18 03:59 07/24/18 05:54 Lorazepam (Ativan) 1 mg Q6H PRN ORAL For Anxiety 07/24/18 04:15 07/31/18 04:14 Montelukast Sodium (Singulair) 10 mg QPM ORAL 07/24/18 16:30 08/23/18 16:29 Olanzapine (ZyPREXA) 10 mg BID ORAL 07/24/18 09:00 08/23/18 08:59 07/24/18 08:15 Pantoprazole (Protonix) 40 mg DAILY ORAL 07/24/18 06:30 08/23/18 06:29 Tamsulosin HCl (Flomax) 0.4 mg BEDTIME ORAL 07/24/18 21:00 08/23/18 20:59 Topiramate (Topamax) 100 mg QHS ORAL 07/24/18 21:00 08/23/18 20:59 Tramadol HCl (Ultram) 50 mg Q6H PRN ORAL Moderate Pain (Pain Scale 4-6) 07/24/18 04:00 07/31/18 03:59 07/24/18 11:53 Zolpidem Tartrate (Ambien) 5 mg BEDTIME PRN ORAL Insomnia 07/24/18 04:00 07/31/18 03:59 Assessment/Plan Problem List: (1) COPD (chronic obstructive pulmonary disease) ICD Codes: J44.9 - Chronic obstructive pulmonary disease, unspecified SNOMED: 27471386 (2) Urinary retention ICD Codes: R33.9 - Retention of urine, unspecified SNOMED: 400300112 (3) ATN (acute tubular necrosis) ICD Codes: N17.0 - Acute kidney failure with tubular necrosis SNOMED: 40798479 (4) UTI (urinary tract infection) ICD Codes: N39.0 - Urinary tract infection, site not specified SNOMED: 04894764 (5) Psychosis ICD Codes: F29 - Unspecified psychosis not due to a substance or known physiological condition SNOMED: 89019238 (6) Hypothyroidism ICD Codes: E03.9 - Hypothyroidism, unspecified SNOMED: 20607620 Assessment/Plan IV fluids renal w/u check electrolytes continue psych meds check cultures dvt prophylaxis symptomatic treatment Murali Allen MD Jul 24, 2018 13:37
[2018-07-24 13:49] LABS: CREATINE KINASE 56 U/L (26-308)
[2018-07-24 14:18] LABS: APPEARANCE,URINE CLEAR; BILIRUBIN, URINE NEGATIVE (NEGATIVE); COLOR,URINE PALE YELLOW; GLUCOSE, URINE (UA) NEGATIVE (NEGATIVE); KETONES,URINE NEGATIVE (NEGATIVE); LEUKOCYTE ESTERASE ,URINE 2+ (NEGATIVE); NITRITE,URINE NEGATIVE (NEGATIVE); PH,URINE 6.5 (4.5-8.0); PROTEIN,URINE NEGATIVE (NEGATIVE); UROBILINOGEN,URINE NORMAL MG/DL (0.0-1.0)
--- NOTE | 2018-07-24 14:46 | Cardiology Report ---
APPROVED REPORT EKG Measurement Heart [id number] Normal sinus rhythm Normal ECG
[2018-07-24 16:00] VITALS: BP 118/77
--- NOTE | 2018-07-24 17:03 | Consultation ---
Consult Note Consult Note asked to eval for renal failure- This patient presents from a [facility] facility. He complains of pain in his left flank and left lower quadrant of his abdomen. Per report from the [facility] facility, the patient was having difficulty urinating and had stated he was unable to urinate all day today. There is no reported fever or chills. There is no report of nausea or vomiting. There are no other complaints. Allergies: Coded Allergies: CHLORPROMAZINE (Unverified Allergy, Unknown, 05/24/18) CLOZAPINE (Unverified Allergy, Unknown, 05/24/18) DIVALPROEX SODIUM (Unverified Allergy, Unknown, 05/24/18) HALOPERIDOL (Unverified Allergy, Unknown, 05/24/18) SERTRALINE (Unverified Allergy, Unknown, 05/24/18) Uncoded Allergies: CLOZASIL (Allergy, Unknown, 07/23/18) Past Medical History: No History, Except For Hx Asthma: Yes Hx COPD: Yes Hx Cancer: Yes Hx Gastrointestinal Problems: Yes - GERD, pancreatitis History Of Psychiatric Problem: Yes - Bipolar, Major depression, schizophrenia , anxiety Hx Seizures: Yes examined- data reviewed has cardoza Assessment/Plan Renal failure- Acute , likely due to retention HyperNatremia Anemia COPD HypoThyroidism Psychosis Plan: Cardoza D5W flomax and Proscar breathing treatments Psych meds per Psych check TSH and HgbA1c Gamal Garcia MD Jul 24, 2018 17:03
[2018-07-24] MEDS: Montelukast 10mg tablet ORAL SCH (17:17)
[2018-07-24] MEDS: Tamsulosin 0.4mg cap ORAL SCH (17:17)
[2018-07-24 20:00] VITALS: BP 118/74
--- NOTE | 2018-07-24 20:30 | History and Physical Report ---
DATE OF ADMISSION: 07/23/2018 TIME: 3 p.m. CONSULTANTS: 1. Shantanu Way M.D. 2. Moody Anthony M.D. 3. Murali Allen M.D. 4. Gamal Garcia M.D. CHIEF COMPLAINT: Urinary retention, agitation, confusion and hypernatremia. BRIEF HISTORY: The patient is a 62-year-old male from [facility] presented with the above-mentioned diagnoses. Ramirez was inserted in the ER, the patient admitted to medical floor. Currently, slightly confused in bed. No complaint. No chest pain. No chest pain. No nausea, vomiting, or diarrhea. PAST MEDICAL HISTORY: COPD, ATN, hypothyroid and asthma. PAST SURGICAL HISTORY: Right leg surgery. MEDICATIONS: Flomax, Topamax, singular, Proscar, Klonopin, Zyprexa, Synthroid, Protonix, Ativan, Tylenol, , tramadol and ceftriaxone. ALLERGIES: Chlorpromazine, clozapine, Clozaril, divalproex sodium, Haldol, and sertraline. SOCIAL HISTORY: Positive smoking. No alcohol. No intravenous drug abuse. FAMILY HISTORY: Noncontributory. PHYSICAL EXAMINATION: GENERAL: Slightly confused in bed, oriented x2, in no acute distress. VITAL SIGNS: Temperature 97 degrees, pulse 92, respirations 20, and blood pressure 123/77. CARDIOVASCULAR: No murmur. LUNGS: Distant and clear. ABDOMEN: Positive bowel sounds. Soft, nontender and nondistended. EXTREMITIES: No cyanosis, clubbing or edema. NEUROLOGIC: The patient moves all extremities, slightly weak. Ramirez in place with clear yellow urine. LABORATORY AND DIAGNOSTIC DATA: Hemoglobin 12.8, otherwise CBC is normal. Sodium 150, chloride 119, BUN and creatinine 25/1.7 and glucose 89. Urinalysis show 3+ blood and 2+ leukocyte esterase. ASSESSMENT: 1. Urinary retention. 2. Agitation. 3. Renal cyst. 4. Hypernatremia. 5. Anemia. 6. COPD. 7. ATN. 8. Hypothyroid. 9. Asthma. PLAN: 1. O2 and pulmonary treatment as needed. 2. Antibiotic per Infectious Disease. 3. Blood pressure control. 4. Dietary followup. 5. Nephrology followup. 6. Psychiatric treatment. 7. CBC and BMP in the morning. Mnasoor Villafuerte D.O. DR: DANDRE JOB#: [id number] CC:
[2018-07-24] MEDS: Topiramate 100mg tab ORAL SCH (20:47)
[2018-07-24] MEDS: Zolpidem 5mg tab ORAL PRN (20:55)
[2018-07-24] MEDS ORDERED: Tamsulosin 0.4mg cap ORAL SCH (21:00)
[2018-07-25] VITALS: BP 121/78
[2018-07-25] MEDS: traMADol 50mg tab ORAL PRN ×3 (03:04→21:55)
[2018-07-25 04:00] VITALS: BP 98/58
[2018-07-25] MEDS: Levothyroxine 25mcg tab ORAL SCH (04:51)
[2018-07-25 06:07] LABS: BASOPHILS % (AUTO) 1.3 % (0.0-2.0); EOSINOPHILS % (AUTO) 5.4 % (0.0-3.0); HEMATOCRIT 36.7 % (42.0-52.0); LYMPHOCYTES % (AUTO) 26.5 % (20.0-45.0); MEAN CORPUSCULAR VOLUME 89 FL (80-99); MONOCYTES % (AUTO) 8.8 % (1.0-10.0); NEUTROPHILS % (AUTO) 58.1 % (45.0-75.0); PLATELET COUNT 217 K/UL (150-450); RED BLOOD COUNT 4.12 M/UL (4.70-6.10); WHITE BLOOD COUNT 7.2 K/UL (4.8-10.8)
[2018-07-25 06:42] LABS: CREATINE KINASE 47 U/L (26-308); GAMMA GLUTAMYL TRANSPEPTIDASE 12 U/L (5-85)
[2018-07-25 07:14] LABS: % IRON SATURATION 13 % (15-50); IRON 45 ug/dL (50-175); TOTAL IRON BINDING CAPACITY 347 ug/dL (250-450)
[2018-07-25 08:00] VITALS: BP 118/62
[2018-07-25] MEDS: Tamsulosin 0.4mg cap ORAL SCH ×2 (08:14→17:04)
[2018-07-25 08:23] LABS: ALANINE AMINOTRANSFERASE 19 U/L (12-78); ALBUMIN 3.3 G/DL (3.4-5.0); ALBUMIN/GLOBULIN RATIO 1.1 (1.0-2.7); ALKALINE PHOSPHATASE 83 U/L (46-116); ANION GAP 10 mmol/L (5-15); ASPARTATE AMINO TRANSFERASE 16 U/L (15-37); BILIRUBIN,TOTAL 0.2 MG/DL (0.2-1.0); BLOOD UREA NITROGEN 22 mg/dL (7-18); CALCIUM 8.8 MG/DL (8.5-10.1); CARBON DIOXIDE 20 MMOL/L (21-32); CHLORIDE 115 MMOL/L (98-107); CHOLESTEROL 128 MG/DL (< 200); CREATININE 1.7 MG/DL (0.55-1.30); FERRITIN 22 NG/ML (8-388); HDL CHOLESTEROL 40 MG/DL (40-60); PHOSPHORUS 3.7 MG/DL (2.5-4.9); POTASSIUM 4.4 MMOL/L (3.5-5.1); SODIUM 145 MMOL/L (136-145); TRIGLYCERIDES 69 MG/DL (30-150)
--- NOTE | 2018-07-25 09:18 | Nephrology Progress Note ---
Assessment/Plan Problem List: (1) Acute on chronic renal failure (2) Hypothyroidism (3) Urinary retention (4) Anemia Assessment: low Iron and low folate Assessment Renal failure- Acute , likely due to retention HyperNatremia Anemia COPD HypoThyroidism Psychosis Plan Ramirez- D5W adjust rate- adjust synthroid dose- PO folic- IV Iron- flomax and Proscar- breathing treatments- Psych meds per Psych- A1C WNL- Subjective ROS Limited/Unobtainable: No Objective Objective Last 24 Hour Vital Signs Date Time Temp Pulse Resp B/P (MAP) Pulse Ox O2 Delivery O2 Flow Rate FiO2 07/25/18 04:00 97.7 63 19 98/58 (71) 96 97.7 07/25/18 00:00 98.5 62 17 121/78 (92) 95 98.5 07/24/18 21:00 Room Air 07/24/18 20:54 96 16 Room Air 21 07/24/18 20:00 98.6 70 17 118/74 (89) 97 98.6 07/24/18 16:00 97.8 84 20 118/77 (91) 98 97.8 07/24/18 12:28 97.8 92 20 123/77 (92) 98 97.8 07/24/18 12:23 97.8 07/24/18 11:53 98.1 07/24/18 09:22 95 16 Room Air 21 Intake and Output 07/24/18 07/25/18 19:00 07:00 Intake Total 840 ml 111 ml Output Total 500 ml 2000 ml Balance 340 ml -1889 ml Intake Oral 480 ml IV Total 360 ml 111 ml Output Urine Total 500 ml 2000 ml Laboratory Tests 07/24/18 13:50: Urine Color Pale yellow, Urine Appearance Clear, Urine pH 6.5, Urine Specific [place] 1.005, Urine Protein Negative, Urine Glucose (UA) Negative, Urine Ketones Negative, Urine Blood 3+H, Urine Nitrite Negative, Urine Bilirubin Negative, Urine Urobilinogen Normal, Urine Leukocyte Esterase 2+H, Urine RBC 2- 4H, Urine WBC 2-4, Urine Squamous Epithelial Cells None, Urine Bacteria None, Urine Eosinophils None seen, Urine Random Sodium 29, Urine Potassium Timed 9L 07/25/18 05:15: White Blood Count 7.2, Red Blood Count 4.12L, Hemoglobin 12.0L, Hematocrit 36.7L , Mean Corpuscular Volume 89, Mean Corpuscular Hemoglobin 29.1, Mean Corpuscular Hemoglobin Concent 32.6, Red Cell Distribution Width 12.0, Platelet Count 217, Mean Platelet Volume 6.0L, Neutrophils (%) (Auto) 58.1, Lymphocytes ( %) (Auto) 26.5, Monocytes (%) (Auto) 8.8, Eosinophils (%) (Auto) 5.4H, Basophils (%) (Auto) 1.3, Erythrocyte Sedimentation Rate 10, Sodium Level 145, Potassium Level 4.4, Chloride Level 115H, Carbon Dioxide Level 20L, Anion Gap 10 , Blood Urea Nitrogen 22H, Creatinine 1.7H, Estimat Glomerular Filtration Rate 41.3, Glucose Level 92, Hemoglobin A1c 5.5, Uric Acid 6.2, Calcium Level 8.8, Phosphorus Level 3.7, Magnesium Level 2.0, Iron Level 45L, Total Iron Binding Capacity 347, Percent Iron Saturation 13L, Unsaturated Iron Binding 302, Ferritin 22, Total Bilirubin 0.2, Gamma Glutamyl Transpeptidase 12, Aspartate Amino Transf (AST/SGOT) 16, Alanine Aminotransferase (ALT/SGPT) 19, Alkaline Phosphatase 83, Total Creatine Kinase 47, C-Reactive Protein, Quantitative < 0.4 , Pro-B-Type Natriuretic Peptide 40, Total Protein 6.4, Albumin 3.3L, Globulin 3.1, Albumin/Globulin Ratio 1.1, Triglycerides Level 69, Cholesterol Level 128, LDL Cholesterol 77, HDL Cholesterol 40, Cholesterol/HDL Ratio 3.2L, Vitamin B12 Level 364, Folate 5.1L, Thyroid Stimulating Hormone (TSH) 8.295H Height (Feet): 5 Height (Inches): 4.00 Weight (Pounds): 187 General Appearance: no apparent distress Cardiovascular: normal rate Respiratory/Chest: lungs clear Abdomen: soft Genitourinary/Rectal: other - Gamal Herrera MD Jul 25, 2018 09:17
[2018-07-25] MEDS: OLANZapine 10mg tab ORAL SCH ×2 (10:20→17:43)
--- NOTE | 2018-07-25 11:18 | Consultation ---
History of Present Illness General Date patient seen: Jul 25, 2018 Chief Complaint: Male Urogenital Problems Reason for Consultation: UTI Present Illness HPI Mr. Chicas is a 62 yo male from a residential who presented the ED on 07/23/18 with urinary retention and confusion. He has had no fever, chills, N/V/D or abdominal pain. He is now A/O x 3. He report that he started to have some stomach pain after taking protonix this morning but is otherwise ok. ID was consulted for UTI. PMHx/PSHx: COPD ATN Hypothyroid Asthma Right leg surgery SocHx Current smoker No E/D FamHx Non contributory Allergies: Coded Allergies: CHLORPROMAZINE (Unverified Allergy, Unknown, 05/24/18) CLOZAPINE (Unverified Allergy, Unknown, 05/24/18) DIVALPROEX SODIUM (Unverified Allergy, Unknown, 05/24/18) HALOPERIDOL (Unverified Allergy, Unknown, 05/24/18) SERTRALINE (Unverified Allergy, Unknown, 05/24/18) Uncoded Allergies: CLOZASIL (Allergy, Unknown, 07/23/18) Medication History Scheduled Aripiprazole* (Abilify*), 10 MG ORAL DAILY, (Reported) Bisacodyl (Dulcolax), 10 MG RC DAILY, (Reported) Clonazepam (Klonopin), 2 MG PO TID, (Reported) Clonazepam* (Klonopin*), 2 MG ORAL TID, (Reported) Cranberry Fruit Concentrate (Cranberry), 450 MG PO DAILY, (Reported) Docusate Sodium* (Colace*), 250 MG ORAL BID, (Reported) Finasteride* (Proscar*), 5 MG ORAL DAILY, (Reported) Fluticasone/Salmeterol (Advair Hfa 115-21 Mcg Inhaler), 2 PUFFS INH EVERY 12 HOURS, (Reported) Levothyroxine Sodium* (Synthroid*), 25 MCG ORAL DAILY, (Reported) Lorazepam* (Lorazepam*), 0.5 MG ORAL THREE TIMES A DAY, (Reported) Lorazepam* (Ativan*), 0.5 MG ORAL Q4HR, (Reported) Magnesium Hydroxide* (Milk Of Magnesia*), 30 ML ORAL Q72H, (Reported) Montelukast Sodium* (Singulair*), 10 MG ORAL QPM, (Reported) Na Phos,M-B/Na Phos,Di-Ba (Fleet Enema), 133 ML RC qtwo days, (Reported) Olanzapine* (Zyprexa*), 5 MG ORAL BID, (Reported) Pantoprazole* (Protonix*), 40 MG ORAL DAILY, (Reported) Quetiapine Fumarate (Seroquel), 50 MG ORAL TWICE A DAY, (Reported) Tamsulosin Hcl (Tamsulosin Hcl*), 0.4 MG ORAL BEDTIME, (Reported) Topiramate* (Topamax*), 100 MG ORAL QHS, (Reported) Scheduled PRN Acetaminophen* (Acetaminophen 325MG Tablet*), 325 MG ORAL Q4H PRN for Mild Pain/ Temp > 100.5, (Reported) Acetaminophen* (Acetaminophen 325MG Tablet*), 650 MG ORAL Q4H PRN for Moderate Pain (Pain Scale 4-6), (Reported) Albuterol Sulfate* (Albuterol Sulfate Hhn*), 3 ML INH Q4H PRN for Shortness of Breath, (Reported) Ibuprofen* (Motrin*), 400 MG ORAL TID PRN for For Pain, (Reported) Ondansetron (Zofran), 4 MG ORAL Q6H PRN for Nausea & Vomiting Temazepam* (Restoril*), 15 MG ORAL BEDTIME PRN for Insomnia, (Reported) Tramadol Hcl* (Ultram*), 50 MG ORAL Q12HR PRN for For Pain, (Reported) Zolpidem Tartrate* (Ambien*), 5 MG ORAL BEDTIME PRN for Insomnia, (Reported) Patient History Healthcare decision maker Resuscitation status Advanced Directive on File Yes Review of Systems All Other Systems: negative except mentioned in HPI Physical Exam Last 24 Hour Vital Signs Date Time Temp Pulse Resp B/P (MAP) Pulse Ox O2 Delivery O2 Flow Rate FiO2 07/25/18 09:00 Room Air 07/25/18 08:58 95 16 Room Air 21 07/25/18 08:00 98.6 55 19 118/62 (80) 99 98.6 07/25/18 04:00 97.7 63 19 98/58 (71) 96 97.7 07/25/18 00:00 98.5 62 17 121/78 (92) 95 98.5 07/24/18 21:00 Room Air 07/24/18 20:54 96 16 Room Air 21 07/24/18 20:00 98.6 70 17 118/74 (89) 97 98.6 07/24/18 16:00 97.8 84 20 118/77 (91) 98 97.8 07/24/18 12:28 97.8 92 20 123/77 (92) 98 97.8 07/24/18 12:23 97.8 07/24/18 11:53 98.1 Intake and Output 07/24/18 07/25/18 19:00 07:00 Intake Total 840 ml 111 ml Output Total 500 ml 2000 ml Balance 340 ml -1889 ml Intake Oral 480 ml IV Total 360 ml 111 ml Output Urine Total 500 ml 2000 ml Laboratory Tests Test 07/24/18 13:50 07/25/18 05:15 Urine Color Pale yellow Urine Appearance Clear Urine pH 6.5 (4.5-8.0) Urine Specific [place] 1.005 (1.005-1.035) Urine Protein Negative (NEGATIVE) Urine Glucose (UA) Negative (NEGATIVE) Urine Ketones Negative (NEGATIVE) Urine Blood 3+ (NEGATIVE) H Urine Nitrite Negative (NEGATIVE) Urine Bilirubin Negative (NEGATIVE) Urine Urobilinogen Normal MG/DL (0.0-1.0) Urine Leukocyte Esterase 2+ (NEGATIVE) H Urine RBC 2-4 /HPF (0 - 0) H Urine WBC 2-4 /HPF (0 - 0) Urine Squamous Epithelial Cells None /LPF (NONE/OCC) Urine Bacteria None /HPF (NONE) Urine Eosinophils None seen (NONE SEEN) Urine Random Sodium 29 mmol/L (20-110) Urine Potassium Timed 9 mmol/L (12-62) L White Blood Count 7.2 K/UL (4.8-10.8) Red Blood Count 4.12 M/UL (4.70-6.10) L Hemoglobin 12.0 G/DL (14.2-18.0) L Hematocrit 36.7 % (42.0-52.0) L Mean Corpuscular Volume 89 FL (80-99) Mean Corpuscular Hemoglobin 29.1 PG (27.0-31.0) Mean Corpuscular Hemoglobin Concent 32.6 G/DL (32.0-36.0) Red Cell Distribution Width 12.0 % (11.6-14.8) Platelet Count 217 K/UL (150-450) Mean Platelet Volume 6.0 FL (6.5-10.1) L Neutrophils (%) (Auto) 58.1 % (45.0-75.0) Lymphocytes (%) (Auto) 26.5 % (20.0-45.0) Monocytes (%) (Auto) 8.8 % (1.0-10.0) Eosinophils (%) (Auto) 5.4 % (0.0-3.0) H Basophils (%) (Auto) 1.3 % (0.0-2.0) Erythrocyte Sedimentation Rate 10 MM/HR (0-20) Sodium Level 145 MMOL/L (136-145) Potassium Level 4.4 MMOL/L (3.5-5.1) Chloride Level 115 MMOL/L (98-107) H Carbon Dioxide Level 20 MMOL/L (21-32) L Anion Gap 10 mmol/L (5-15) Blood Urea Nitrogen 22 mg/dL (7-18) H Creatinine 1.7 MG/DL (0.55-1.30) H Estimat Glomerular Filtration Rate 41.3 mL/min (>60) Glucose Level 92 MG/DL (74-106) Hemoglobin A1c 5.5 % (4.3-6.0) Uric Acid 6.2 MG/DL (2.6-7.2) Calcium Level 8.8 MG/DL (8.5-10.1) Phosphorus Level 3.7 MG/DL (2.5-4.9) Magnesium Level 2.0 MG/DL (1.8-2.4) Iron Level 45 ug/dL (50-175) L Total Iron Binding Capacity 347 ug/dL (250-450) Percent Iron Saturation 13 % (15-50) L Unsaturated Iron Binding 302 ug/dL (112-346) Ferritin 22 NG/ML (8-388) Total Bilirubin 0.2 MG/DL (0.2-1.0) Gamma Glutamyl Transpeptidase 12 U/L (5-85) Aspartate Amino Transf (AST/SGOT) 16 U/L (15-37) Alanine Aminotransferase (ALT/SGPT) 19 U/L (12-78) Alkaline Phosphatase 83 U/L (46-116) Total Creatine Kinase 47 U/L (26-308) C-Reactive Protein, Quantitative < 0.4 mg/dL (0.00-0.90) Pro-B-Type Natriuretic Peptide 40 pg/mL (0-125) Total Protein 6.4 G/DL (6.4-8.2) Albumin 3.3 G/DL (3.4-5.0) L Globulin 3.1 g/dL Albumin/Globulin Ratio 1.1 (1.0-2.7) Triglycerides Level 69 MG/DL (30-150) Cholesterol Level 128 MG/DL (< 200) LDL Cholesterol 77 mg/dL (<100) HDL Cholesterol 40 MG/DL (40-60) Cholesterol/HDL Ratio 3.2 (3.3-4.4) L Vitamin B12 Level 364 PG/ML (193-986) Folate 5.1 NG/ML (8.6-58.9) L Thyroid Stimulating Hormone (TSH) 8.295 uiU/mL (0.358-3.740) Height (Feet): 5 Height (Inches): 4.00 Weight (Pounds): 187 Medications Current Medications Medications (Trade) Dose Ordered Sig/Cori Route PRN Reason Start Time Stop Time Status Last Admin Dose Admin Acetaminophen (Tylenol) 325 mg Q4H PRN ORAL Mild Pain/Temp > 100.5 07/24/18 04:00 08/23/18 03:59 Albuterol Sulfate (Proventil) 2.5 mg Q4H PRN HHN Shortness of Breath 07/24/18 04:00 07/29/18 03:59 Clonazepam (KlonoPIN) 2 mg BID ORAL 07/24/18 09:00 07/31/18 08:59 07/25/18 08:14 Dextrose 1,000 ml @ 50 mls/hr Q20H IV 07/25/18 10:00 08/23/18 09:59 07/25/18 10:20 Finasteride (Proscar) 5 mg DAILY ORAL 07/24/18 09:00 08/23/18 08:59 07/25/18 08:14 Folic Acid (Folate) 2 mg DAILY ORAL 07/26/18 09:00 08/25/18 08:59 Iron Sucrose 100 mg/Sodium Chloride 60 ml @ 240 mls/hr BEDTIME IV 07/26/18 21:00 07/30/18 21:14 Iron Sucrose 200 mg/Sodium Chloride 120 ml @ 240 mls/hr ONCE ONCE IV 07/25/18 12:00 07/25/18 12:29 Levothyroxine Sodium (Synthroid) 50 mcg ACBREAKFAST ORAL 07/26/18 06:30 08/23/18 06:29 Loperamide HCl (Imodium) 2 mg Q4H PRN ORAL Diarrhea 07/24/18 04:00 08/23/18 03:59 07/24/18 05:54 Lorazepam (Ativan) 1 mg Q6H PRN ORAL For Anxiety 07/24/18 04:15 07/31/18 04:14 07/25/18 01:25 Montelukast Sodium (Singulair) 10 mg QPM ORAL 07/24/18 16:30 08/23/18 16:29 07/24/18 17:17 Olanzapine (ZyPREXA) 10 mg BID ORAL 07/24/18 09:00 08/23/18 08:59 07/25/18 10:20 Pantoprazole (Protonix) 40 mg BID ORAL 07/25/18 18:00 08/23/18 06:29 Tamsulosin HCl (Flomax) 0.4 mg BID ORAL 07/24/18 18:00 08/23/18 17:59 07/25/18 08:14 Topiramate (Topamax) 100 mg QHS ORAL 07/24/18 21:00 08/23/18 20:59 07/24/18 20:47 Tramadol HCl (Ultram) 50 mg Q6H PRN ORAL Moderate Pain (Pain Scale 4-6) 07/24/18 04:00 07/31/18 03:59 07/25/18 03:04 Zolpidem Tartrate (Ambien) 5 mg BEDTIME PRN ORAL Insomnia 07/24/18 04:00 07/31/18 03:59 07/24/18 20:55 Objective Narrative Gen: NAD, well appearing, alert male, sitting up eating in bed. HEENT: NCAT, MMM, EOMI, PERRL, No Oral lesion, no scleral icterus, poor dentition NECK: full range of motion, supple, no meningismus, No LAD, No JVD LUNGS: CTAB, No W/C, No Accessory muscle use CARDS: RRR, S1, S2, No M/R/G ABD: Soft, Mild nonfocal tenderness, ND, No R/G, + BS, No HSM, No Masses : Deferred Ext: C/C/E, Pulses 2+ B/L (DP, Rad) NEURO: A/O x 3, Strength and Sensation Grossly intact PSYCH: mood/affect normal SKIN: warm/dry, No rashes, Assessment/Plan Assessment/Plan 62 yo male from a residential who presented the ED on 07/23/18 with urinary retention and confusion. Urinary retention No sign of active infection UA negative for WBC some blood No Fever or leukocytosis No dysuria Ramirez in place Confusion Likely secondary to urinary retention and hypernatremia COPD ATN Hypothyroid Asthma Plan: Continue to monitor clinically off antibiotics Supportive care Thank you for this consult. We will continue to follow the patient during this hospitalization. Humberto Obrien MD Jul 25, 2018 11:18
[2018-07-25 12:00] VITALS: BP 106/67
[2018-07-25] MEDS ORDERED: Iron Sucrose 200 MG in NS 110 ML IV ONE (12:00)
--- NOTE | 2018-07-25 13:18 | Pulmonology Progress Note ---
Assessment/Plan Problems: (1) COPD (chronic obstructive pulmonary disease) (2) Urinary retention (3) ATN (acute tubular necrosis) (4) UTI (urinary tract infection) (5) Psychosis (6) Hypothyroidism Assessment/Plan no new complains check electrolytes bun/creatinine are lower titrate fio2 to sat of 92% respiratory treatment symptomatic treatment dvt prophylaxis. Subjective ROS Limited/Unobtainable: No Constitutional: Reports: no symptoms HEENT: Repors: no symptoms Allergies: Coded Allergies: CHLORPROMAZINE (Unverified Allergy, Unknown, 05/24/18) CLOZAPINE (Unverified Allergy, Unknown, 05/24/18) DIVALPROEX SODIUM (Unverified Allergy, Unknown, 05/24/18) HALOPERIDOL (Unverified Allergy, Unknown, 05/24/18) SERTRALINE (Unverified Allergy, Unknown, 05/24/18) Uncoded Allergies: CLOZASIL (Allergy, Unknown, 07/23/18) Objective Last 24 Hour Vital Signs Date Time Temp Pulse Resp B/P (MAP) Pulse Ox O2 Delivery O2 Flow Rate FiO2 07/25/18 12:28 97.7 07/25/18 12:00 97.7 67 17 106/67 (80) 97 97.7 07/25/18 09:00 Room Air 07/25/18 08:58 95 16 Room Air 21 07/25/18 08:00 98.6 55 19 118/62 (80) 99 98.6 07/25/18 04:00 97.7 63 19 98/58 (71) 96 97.7 07/25/18 00:00 98.5 62 17 121/78 (92) 95 98.5 07/24/18 21:00 Room Air 07/24/18 20:54 96 16 Room Air 21 07/24/18 20:00 98.6 70 17 118/74 (89) 97 98.6 07/24/18 16:00 97.8 84 20 118/77 (91) 98 97.8 Intake and Output 07/24/18 07/25/18 19:00 07:00 Intake Total 840 ml 111 ml Output Total 500 ml 2000 ml Balance 340 ml -1889 ml Intake Oral 480 ml IV Total 360 ml 111 ml Output Urine Total 500 ml 2000 ml General Appearance: WD/WN HEENT: normocephalic, atraumatic, PERRL Respiratory/Chest: chest wall non-tender Cardiovascular: normal peripheral pulses, normal rate Abdomen: normal bowel sounds, soft, non tender Genitourinary: normal external genitalia Extremities: no cyanosis Skin: no lesions 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: 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, normal mood/affect Microbiology Date/Time Source Procedure Growth Status 07/23/18 21:00 Blood Blood Culture - Preliminary NO GROWTH AFTER 24 HOURS Resulted 07/23/18 20:50 Blood Blood Culture - Preliminary NO GROWTH AFTER 24 HOURS Resulted Laboratory Tests 07/24/18 13:50: Urine Color Pale yellow, Urine Appearance Clear, Urine pH 6.5, Urine Specific [place] 1.005, Urine Protein Negative, Urine Glucose (UA) Negative, Urine Ketones Negative, Urine Blood 3+H, Urine Nitrite Negative, Urine Bilirubin Negative, Urine Urobilinogen Normal, Urine Leukocyte Esterase 2+H, Urine RBC 2- 4H, Urine WBC 2-4, Urine Squamous Epithelial Cells None, Urine Bacteria None, Urine Eosinophils None seen, Urine Random Sodium 29, Urine Potassium Timed 9L 07/25/18 05:15: White Blood Count 7.2, Red Blood Count 4.12L, Hemoglobin 12.0L, Hematocrit 36.7L , Mean Corpuscular Volume 89, Mean Corpuscular Hemoglobin 29.1, Mean Corpuscular Hemoglobin Concent 32.6, Red Cell Distribution Width 12.0, Platelet Count 217, Mean Platelet Volume 6.0L, Neutrophils (%) (Auto) 58.1, Lymphocytes ( %) (Auto) 26.5, Monocytes (%) (Auto) 8.8, Eosinophils (%) (Auto) 5.4H, Basophils (%) (Auto) 1.3, Erythrocyte Sedimentation Rate 10, Sodium Level 145, Potassium Level 4.4, Chloride Level 115H, Carbon Dioxide Level 20L, Anion Gap 10 , Blood Urea Nitrogen 22H, Creatinine 1.7H, Estimat Glomerular Filtration Rate 41.3, Glucose Level 92, Hemoglobin A1c 5.5, Uric Acid 6.2, Calcium Level 8.8, Phosphorus Level 3.7, Magnesium Level 2.0, Iron Level 45L, Total Iron Binding Capacity 347, Percent Iron Saturation 13L, Unsaturated Iron Binding 302, Ferritin 22, Total Bilirubin 0.2, Gamma Glutamyl Transpeptidase 12, Aspartate Amino Transf (AST/SGOT) 16, Alanine Aminotransferase (ALT/SGPT) 19, Alkaline Phosphatase 83, Total Creatine Kinase 47, C-Reactive Protein, Quantitative < 0.4 , Pro-B-Type Natriuretic Peptide 40, Total Protein 6.4, Albumin 3.3L, Globulin 3.1, Albumin/Globulin Ratio 1.1, Triglycerides Level 69, Cholesterol Level 128, LDL Cholesterol 77, HDL Cholesterol 40, Cholesterol/HDL Ratio 3.2L, Vitamin B12 Level 364, Folate 5.1L, Thyroid Stimulating Hormone (TSH) 8.295H Current Medications Medications (Trade) Dose Ordered Sig/Cori Route PRN Reason Start Time Stop Time Status Last Admin Dose Admin Acetaminophen (Tylenol) 325 mg Q4H PRN ORAL Mild Pain/Temp > 100.5 07/24/18 04:00 08/23/18 03:59 Albuterol Sulfate (Proventil) 2.5 mg Q4H PRN HHN Shortness of Breath 07/24/18 04:00 07/29/18 03:59 Clonazepam (KlonoPIN) 2 mg BID ORAL 07/24/18 09:00 07/31/18 08:59 07/25/18 08:14 Dextrose 1,000 ml @ 50 mls/hr Q20H IV 07/25/18 10:00 08/23/18 09:59 07/25/18 10:20 Finasteride (Proscar) 5 mg DAILY ORAL 07/24/18 09:00 08/23/18 08:59 07/25/18 08:14 Folic Acid (Folate) 2 mg DAILY ORAL 07/26/18 09:00 08/25/18 08:59 Iron Sucrose 100 mg/Sodium Chloride 60 ml @ 240 mls/hr BEDTIME IV 07/26/18 21:00 07/30/18 21:14 Levothyroxine Sodium (Synthroid) 50 mcg ACBREAKFAST ORAL 07/26/18 06:30 08/23/18 06:29 Loperamide HCl (Imodium) 2 mg Q4H PRN ORAL Diarrhea 07/24/18 04:00 08/23/18 03:59 07/24/18 05:54 Lorazepam (Ativan) 1 mg Q6H PRN ORAL For Anxiety 07/24/18 04:15 07/31/18 04:14 07/25/18 01:25 Montelukast Sodium (Singulair) 10 mg QPM ORAL 07/24/18 16:30 08/23/18 16:29 07/24/18 17:17 Olanzapine (ZyPREXA) 10 mg BID ORAL 07/24/18 09:00 08/23/18 08:59 07/25/18 10:20 Pantoprazole (Protonix) 40 mg BID ORAL 07/25/18 18:00 08/23/18 06:29 Tamsulosin HCl (Flomax) 0.4 mg BID ORAL 07/24/18 18:00 08/23/18 17:59 07/25/18 08:14 Topiramate (Topamax) 100 mg QHS ORAL 07/24/18 21:00 08/23/18 20:59 07/24/18 20:47 Tramadol HCl (Ultram) 50 mg Q6H PRN ORAL Moderate Pain (Pain Scale 4-6) 07/24/18 04:00 07/31/18 03:59 07/25/18 12:28 Zolpidem Tartrate (Ambien) 5 mg BEDTIME PRN ORAL Insomnia 07/24/18 04:00 07/31/18 03:59 07/24/18 20:55 Murali Allen MD Jul 25, 2018 13:18
--- NOTE | 2018-07-25 14:09 | General Progress Note ---
Assessment/Plan Problem List: (1) Asthma ICD Codes: J45.909 - Unspecified asthma, uncomplicated SNOMED: 565619404 (2) Urinary retention ICD Codes: R33.9 - Retention of urine, unspecified SNOMED: 842338274 (3) COPD (chronic obstructive pulmonary disease) ICD Codes: J44.9 - Chronic obstructive pulmonary disease, unspecified SNOMED: 37640628 (4) Hypothyroidism ICD Codes: E03.9 - Hypothyroidism, unspecified SNOMED: 83239667 (5) Psychosis ICD Codes: F29 - Unspecified psychosis not due to a substance or known physiological condition SNOMED: 60991102 (6) ATN (acute tubular necrosis) ICD Codes: N17.0 - Acute kidney failure with tubular necrosis SNOMED: 89800498 (7) Anemia ICD Codes: D64.9 - Anemia, unspecified SNOMED: 473430990 Status: unchanged Assessment/Plan ot pt diet ivf cardoza cbc bmp am dc plan snf Subjective Constitutional: Reports: weakness Allergies: Coded Allergies: CHLORPROMAZINE (Unverified Allergy, Unknown, 05/24/18) CLOZAPINE (Unverified Allergy, Unknown, 05/24/18) DIVALPROEX SODIUM (Unverified Allergy, Unknown, 05/24/18) HALOPERIDOL (Unverified Allergy, Unknown, 05/24/18) SERTRALINE (Unverified Allergy, Unknown, 05/24/18) Uncoded Allergies: CLOZASIL (Allergy, Unknown, 07/23/18) All Systems: reviewed and negative except above Subjective calm in bed Objective Last 24 Hour Vital Signs Date Time Temp Pulse Resp B/P (MAP) Pulse Ox O2 Delivery O2 Flow Rate FiO2 07/25/18 12:58 97.7 07/25/18 12:28 97.7 07/25/18 12:00 97.7 67 17 106/67 (80) 97 97.7 07/25/18 09:00 Room Air 07/25/18 08:58 95 16 Room Air 21 07/25/18 08:00 98.6 55 19 118/62 (80) 99 98.6 07/25/18 04:00 97.7 63 19 98/58 (71) 96 97.7 07/25/18 00:00 98.5 62 17 121/78 (92) 95 98.5 07/24/18 21:00 Room Air 9/11/18 20:54 96 16 Room Air 21 07/24/18 20:00 98.6 70 17 118/74 (89) 97 98.6 07/24/18 16:00 97.8 84 20 118/77 (91) 98 97.8 Intake and Output 07/24/18 07/25/18 19:00 07:00 Intake Total 840 ml 111 ml Output Total 500 ml 2000 ml Balance 340 ml -1889 ml Intake Oral 480 ml IV Total 360 ml 111 ml Output Urine Total 500 ml 2000 ml Laboratory Tests 07/25/18 05:15: White Blood Count 7.2, Red Blood Count 4.12L, Hemoglobin 12.0L, Hematocrit 36.7L , Mean Corpuscular Volume 89, Mean Corpuscular Hemoglobin 29.1, Mean Corpuscular Hemoglobin Concent 32.6, Red Cell Distribution Width 12.0, Platelet Count 217, Mean Platelet Volume 6.0L, Neutrophils (%) (Auto) 58.1, Lymphocytes ( %) (Auto) 26.5, Monocytes (%) (Auto) 8.8, Eosinophils (%) (Auto) 5.4H, Basophils (%) (Auto) 1.3, Erythrocyte Sedimentation Rate 10, Sodium Level 145, Potassium Level 4.4, Chloride Level 115H, Carbon Dioxide Level 20L, Anion Gap 10 , Blood Urea Nitrogen 22H, Creatinine 1.7H, Estimat Glomerular Filtration Rate 41.3, Glucose Level 92, Hemoglobin A1c 5.5, Uric Acid 6.2, Calcium Level 8.8, Phosphorus Level 3.7, Magnesium Level 2.0, Iron Level 45L, Total Iron Binding Capacity 347, Percent Iron Saturation 13L, Unsaturated Iron Binding 302, Ferritin 22, Total Bilirubin 0.2, Gamma Glutamyl Transpeptidase 12, Aspartate Amino Transf (AST/SGOT) 16, Alanine Aminotransferase (ALT/SGPT) 19, Alkaline Phosphatase 83, Total Creatine Kinase 47, C-Reactive Protein, Quantitative < 0.4 , Pro-B-Type Natriuretic Peptide 40, Total Protein 6.4, Albumin 3.3L, Globulin 3.1, Albumin/Globulin Ratio 1.1, Triglycerides Level 69, Cholesterol Level 128, LDL Cholesterol 77, HDL Cholesterol 40, Cholesterol/HDL Ratio 3.2L, Vitamin B12 Level 364, Folate 5.1L, Thyroid Stimulating Hormone (TSH) 8.295H Height (Feet): 5 Height (Inches): 4.00 Weight (Pounds): 187 General Appearance: lethargic EENT: normal ENT inspection Neck: normal alignment Cardiovascular: normal peripheral pulses, normal rate, regular rhythm Respiratory/Chest: chest wall non-tender, lungs clear, normal breath sounds Abdomen: normal bowel sounds, non tender, soft Extremities: normal inspection Edema: no edema noted Arm (L), no edema noted Arm (R), no edema noted Leg (L), no edema noted Leg (R), no edema noted Pedal (L), no edema noted Pedal (R), no edema noted Generalized Neurologic: responsive, motor weakness Skin: normal pigmentation, warm/dry Mansoor Villafuerte DO Jul 25, 2018 14:09
[2018-07-25 16:00] VITALS: BP 122/74
[2018-07-25] MEDS: Montelukast 10mg tablet ORAL SCH (17:04)
[2018-07-25] MEDS: Milk of Magnesia 30ml Ud ORAL PRN (18:08)
[2018-07-25 20:00] VITALS: BP 106/70
[2018-07-25] MEDS: Topiramate 100mg tab ORAL SCH (20:20)
[2018-07-25] MEDS: Zolpidem 5mg tab ORAL PRN (21:55)
--- NOTE | 2018-07-25 22:30 | Progress Note ---
DATE: 07/25/2018 SUBJECTIVE: The patient is a 62-year-old male patient with pyelonephritis. He is disorganized, and mood is labile. He has had no logical plan for his own self-care. He continues to be agitated, highly anxious, that is why he requires psychiatric consultation and treatment at this time. MENTAL STATUS EXAMINATION: This is a 62-year-old male. Appearance is disheveled. Attitude, irritable and agitated. Affect guarded and restricted. Intellect poor. Mood, depressed and anxious. Motor activity, psychomotor agitation. Attention span is poor. Orientation x2. Speech is pressured. Thought process is disorganized and logical. Thought content, no auditory hallucinations or paranoid delusions. Insight and judgment is poor. DIAGNOSIS: Paranoid schizophrenia with acute exacerbation. PLAN: My plan for this patient is to treat him with Zyprexa 10 mg twice a day, Ativan 1 mg every 6 hours p.r.n. anxiety and agitation. Klonopin 2 mg twice a day. Provided 20 minutes of cognitive behavioral therapy to identify automatic negative thoughts and help him to convert those to more positive thoughts to reduce depression and suicidality. Chart reviewed. Discussed with staff. Seen and assessed in his room. Shantanu Way M.D. DR: MONO JOB#: [id number] CC:
[2018-07-26] VITALS: BP 97/66
[2018-07-26 04:00] VITALS: BP 90/60
[2018-07-26] MEDS: traMADol 50mg tab ORAL PRN ×2 (04:03→16:03)
[2018-07-26 07:16] LABS: BASOPHILS % (AUTO) 1.3 % (0.0-2.0); EOSINOPHILS % (AUTO) 6.8 % (0.0-3.0); HEMATOCRIT 36.3 % (42.0-52.0); HEMOGLOBIN 12.1 G/DL (14.2-18.0); MEAN CORPUSCULAR VOLUME 89 FL (80-99); MONOCYTES % (AUTO) 7.5 % (1.0-10.0); NEUTROPHILS % (AUTO) 61.5 % (45.0-75.0); PLATELET COUNT 190 K/UL (150-450); RED CELL DISTRIBUTION WIDTH 11.8 % (11.6-14.8); WHITE BLOOD COUNT 5.6 K/UL (4.8-10.8)
[2018-07-26 07:35] LABS: ALANINE AMINOTRANSFERASE 27 U/L (12-78); ALBUMIN 3.1 G/DL (3.4-5.0); ALKALINE PHOSPHATASE 80 U/L (46-116); ASPARTATE AMINO TRANSFERASE 16 U/L (15-37); BILIRUBIN,TOTAL 0.3 MG/DL (0.2-1.0); BLOOD UREA NITROGEN 18 mg/dL (7-18); CALCIUM 8.6 MG/DL (8.5-10.1); CHLORIDE 114 MMOL/L (98-107); CREATININE 1.6 MG/DL (0.55-1.30); PHOSPHORUS 3.6 MG/DL (2.5-4.9); POTASSIUM 4.3 MMOL/L (3.5-5.1); SODIUM 145 MMOL/L (136-145)
[2018-07-26 08:00] VITALS: BP 112/66
[2018-07-26] MEDS: Tamsulosin 0.4mg cap ORAL SCH ×2 (09:00→17:37)
[2018-07-26] MEDS: OLANZapine 10mg tab ORAL SCH ×2 (09:05→17:37)
[2018-07-26] MEDS: Milk of Magnesia 30ml Ud ORAL PRN (09:11)
[2018-07-26 10:03] LABS: ANION GAP 10 mmol/L (5-15); CARBON DIOXIDE 21 MMOL/L (21-32)
--- NOTE | 2018-07-26 10:09 | Infectious Diseases Prog Note ---
Assessment/Plan Assessment/Plan 62 yo male from a custodial who presented the ED on 07/23/18 with urinary retention and confusion. Urinary retention No sign of active infection UA negative for WBC some blood No Fever or leukocytosis No dysuria Ramirez in place Confusion Likely secondary to urinary retention and hypernatremia COPD ATN Hypothyroid Asthma Plan: Stable so continue to monitor clinically off antibiotics Supportive care We will continue to follow the patient during this hospitalization. Subjective Allergies: Coded Allergies: CHLORPROMAZINE (Unverified Allergy, Unknown, 05/24/18) CLOZAPINE (Unverified Allergy, Unknown, 05/24/18) DIVALPROEX SODIUM (Unverified Allergy, Unknown, 05/24/18) HALOPERIDOL (Unverified Allergy, Unknown, 05/24/18) SERTRALINE (Unverified Allergy, Unknown, 05/24/18) Uncoded Allergies: CLOZASIL (Allergy, Unknown, 07/23/18) Subjective Patient A/O no acute problems Objective Vital Signs Last 24 Hour Vital Signs Date Time Temp Pulse Resp B/P (MAP) Pulse Ox O2 Delivery O2 Flow Rate FiO2 07/26/18 08:00 97.6 56 12 112/66 (81) 98 97.6 07/26/18 06:41 59 07/26/18 04:00 96.8 53 16 90/60 (70) 96 96.8 07/26/18 00:00 97.1 59 17 97/66 (76) 95 97.1 07/25/18 21:00 Room Air 07/25/18 20:07 64 18 Room Air 21 07/25/18 20:00 97.9 60 20 106/70 (82) 96 97.9 07/25/18 16:00 97.4 63 19 122/74 (90) 98 97.4 07/25/18 12:58 97.7 07/25/18 12:28 97.7 07/25/18 12:00 97.7 67 17 106/67 (80) 97 97.7 Height (Feet): 5 Height (Inches): 4.00 Weight (Pounds): 187 Objective Gen: NAD, well appearing, alert male, sitting up eating in bed. HEENT: NCAT, MMM, EOMI, no scleral icterus, poor dentition LUNGS: CTAB, No W/C, No Accessory muscle use CARDS: RRR, S1, S2, No M/R/G ABD: Soft, NT, ND Ext: C/C/E, Pulses 2+ B/L (DP, Rad) NEURO: A/O x 3, Strength and Sensation Grossly intact Microbiology Date/Time Source Procedure Growth Status 07/23/18 21:00 Blood Blood Culture - Preliminary NO GROWTH AFTER 48 HOURS Resulted 07/23/18 20:50 Blood Blood Culture - Preliminary NO GROWTH AFTER 48 HOURS Resulted Laboratory Tests Test 07/26/18 05:45 White Blood Count 5.6 K/UL (4.8-10.8) Red Blood Count 4.10 M/UL (4.70-6.10) L Hemoglobin 12.1 G/DL (14.2-18.0) L Hematocrit 36.3 % (42.0-52.0) L Mean Corpuscular Volume 89 FL (80-99) Mean Corpuscular Hemoglobin 29.6 PG (27.0-31.0) Mean Corpuscular Hemoglobin Concent 33.4 G/DL (32.0-36.0) Red Cell Distribution Width 11.8 % (11.6-14.8) Platelet Count 190 K/UL (150-450) Mean Platelet Volume 6.0 FL (6.5-10.1) L Neutrophils (%) (Auto) 61.5 % (45.0-75.0) Lymphocytes (%) (Auto) 23.0 % (20.0-45.0) Monocytes (%) (Auto) 7.5 % (1.0-10.0) Eosinophils (%) (Auto) 6.8 % (0.0-3.0) H Basophils (%) (Auto) 1.3 % (0.0-2.0) Sodium Level 145 MMOL/L (136-145) Potassium Level 4.3 MMOL/L (3.5-5.1) Chloride Level 114 MMOL/L (98-107) H Carbon Dioxide Level 21 MMOL/L (21-32) Anion Gap 10 mmol/L (5-15) Blood Urea Nitrogen 18 mg/dL (7-18) Creatinine 1.6 MG/DL (0.55-1.30) H Estimat Glomerular Filtration Rate 44.3 mL/min (>60) Glucose Level 86 MG/DL (74-106) Calcium Level 8.6 MG/DL (8.5-10.1) Phosphorus Level 3.6 MG/DL (2.5-4.9) Magnesium Level 1.9 MG/DL (1.8-2.4) Total Bilirubin 0.3 MG/DL (0.2-1.0) Aspartate Amino Transf (AST/SGOT) 16 U/L (15-37) Alanine Aminotransferase (ALT/SGPT) 27 U/L (12-78) Alkaline Phosphatase 80 U/L (46-116) Total Protein 6.1 G/DL (6.4-8.2) L Albumin 3.1 G/DL (3.4-5.0) L Globulin 3.0 g/dL Albumin/Globulin Ratio 1.0 (1.0-2.7) Current Medications Medications (Trade) Dose Ordered Sig/Cori Route PRN Reason Start Time Stop Time Status Last Admin Dose Admin Acetaminophen (Tylenol) 325 mg Q4H PRN ORAL Mild Pain/Temp > 100.5 07/24/18 04:00 08/23/18 03:59 Albuterol Sulfate (Proventil) 2.5 mg Q4H PRN HHN Shortness of Breath 07/24/18 04:00 07/29/18 03:59 Clonazepam (KlonoPIN) 2 mg BID ORAL 07/24/18 09:00 07/31/18 08:59 07/26/18 09:00 Dextrose 1,000 ml @ 50 mls/hr Q20H IV 07/25/18 10:00 08/23/18 09:59 07/26/18 00:26 Finasteride (Proscar) 5 mg DAILY ORAL 07/24/18 09:00 08/23/18 08:59 07/26/18 09:00 Folic Acid (Folate) 2 mg DAILY ORAL 07/26/18 09:00 08/25/18 08:59 07/26/18 09:00 Iron Sucrose 100 mg/Sodium Chloride 60 ml @ 240 mls/hr BEDTIME IV 07/26/18 21:00 07/30/18 21:14 Levothyroxine Sodium (Synthroid) 50 mcg ACBREAKFAST ORAL 07/26/18 06:30 08/23/18 06:29 07/26/18 05:57 Loperamide HCl (Imodium) 2 mg Q4H PRN ORAL Diarrhea 07/24/18 04:00 08/23/18 03:59 07/24/18 05:54 Lorazepam (Ativan) 1 mg Q6H PRN ORAL For Anxiety 07/24/18 04:15 07/31/18 04:14 07/25/18 01:25 Magnesium Hydroxide (Mom) 30 ml DAILYPRN PRN ORAL Constipation 07/25/18 18:00 08/24/18 17:59 07/26/18 09:11 Montelukast Sodium (Singulair) 10 mg QPM ORAL 07/24/18 16:30 08/23/18 16:29 07/25/18 17:04 Olanzapine (ZyPREXA) 10 mg BID ORAL 07/24/18 09:00 08/23/18 08:59 07/26/18 09:05 Pantoprazole (Protonix) 40 mg BID ORAL 07/25/18 18:00 08/23/18 06:29 Tamsulosin HCl (Flomax) 0.4 mg BID ORAL 07/24/18 18:00 08/23/18 17:59 07/26/18 09:00 Topiramate (Topamax) 100 mg QHS ORAL 07/24/18 21:00 08/23/18 20:59 07/25/18 20:20 Tramadol HCl (Ultram) 50 mg Q6H PRN ORAL Moderate Pain (Pain Scale 4-6) 07/24/18 04:00 07/31/18 03:59 07/26/18 04:03 Zolpidem Tartrate (Ambien) 5 mg BEDTIME PRN ORAL Insomnia 07/24/18 04:00 07/31/18 03:59 07/25/18 21:55 Humberto Obrien MD Jul 26, 2018 10:09
[2018-07-26 12:00] VITALS: BP 105/74
--- NOTE | 2018-07-26 12:46 | General Progress Note ---
Assessment/Plan Problem List: (1) Asthma ICD Codes: J45.909 - Unspecified asthma, uncomplicated SNOMED: 294750972 (2) Urinary retention ICD Codes: R33.9 - Retention of urine, unspecified SNOMED: 037851148 (3) COPD (chronic obstructive pulmonary disease) ICD Codes: J44.9 - Chronic obstructive pulmonary disease, unspecified SNOMED: 15840713 (4) Hypothyroidism ICD Codes: E03.9 - Hypothyroidism, unspecified SNOMED: 84413262 (5) Psychosis ICD Codes: F29 - Unspecified psychosis not due to a substance or known physiological condition SNOMED: 42182933 (6) ATN (acute tubular necrosis) ICD Codes: N17.0 - Acute kidney failure with tubular necrosis SNOMED: 81882701 (7) Anemia ICD Codes: D64.9 - Anemia, unspecified SNOMED: 360011907 Status: stable, progressing Assessment/Plan ot pt diet ivf cardoza dc if clear Subjective Constitutional: Reports: weakness Allergies: Coded Allergies: CHLORPROMAZINE (Unverified Allergy, Unknown, 05/24/18) CLOZAPINE (Unverified Allergy, Unknown, 05/24/18) DIVALPROEX SODIUM (Unverified Allergy, Unknown, 05/24/18) HALOPERIDOL (Unverified Allergy, Unknown, 05/24/18) SERTRALINE (Unverified Allergy, Unknown, 05/24/18) Uncoded Allergies: CLOZASIL (Allergy, Unknown, 07/23/18) All Systems: reviewed and negative except above Subjective calm in bed Objective Last 24 Hour Vital Signs Date Time Temp Pulse Resp B/P (MAP) Pulse Ox O2 Delivery O2 Flow Rate FiO2 07/26/18 09:00 Room Air 07/26/18 08:00 97.6 56 12 112/66 (81) 98 97.6 07/26/18 06:41 59 07/26/18 04:00 96.8 53 16 90/60 (70) 96 96.8 07/26/18 00:00 97.1 59 17 97/66 (76) 95 97.1 07/25/18 21:00 Room Air 07/25/18 20:07 64 18 Room Air 21 07/25/18 20:00 97.9 60 20 106/70 (82) 96 97.9 07/25/18 16:00 97.4 63 19 122/74 (90) 98 97.4 07/25/18 12:58 97.7 Intake and Output 07/25/18 07/26/18 19:00 07:00 Intake Total 1400 ml 1000 ml Output Total 2000 ml 3000 ml Balance -600 ml -2000 ml Intake Oral 500 ml IV Total 400 ml 500 ml Other 1000 ml Output Urine Total 2000 ml 3000 ml Laboratory Tests 07/26/18 05:45: White Blood Count 5.6, Red Blood Count 4.10L, Hemoglobin 12.1L, Hematocrit 36.3L , Mean Corpuscular Volume 89, Mean Corpuscular Hemoglobin 29.6, Mean Corpuscular Hemoglobin Concent 33.4, Red Cell Distribution Width 11.8, Platelet Count 190, Mean Platelet Volume 6.0L, Neutrophils (%) (Auto) 61.5, Lymphocytes ( %) (Auto) 23.0, Monocytes (%) (Auto) 7.5, Eosinophils (%) (Auto) 6.8H, Basophils (%) (Auto) 1.3, Sodium Level 145, Potassium Level 4.3, Chloride Level 114H, Carbon Dioxide Level 21, Anion Gap 10, Blood Urea Nitrogen 18, Creatinine 1.6H, Estimat Glomerular Filtration Rate 44.3, Glucose Level 86, Calcium Level 8.6, Phosphorus Level 3.6, Magnesium Level 1.9, Total Bilirubin 0.3, Aspartate Amino Transf (AST/SGOT) 16, Alanine Aminotransferase (ALT/SGPT) 27, Alkaline Phosphatase 80, Total Protein 6.1L, Albumin 3.1L, Globulin 3.0, Albumin/ Globulin Ratio 1.0 Height (Feet): 5 Height (Inches): 4.00 Weight (Pounds): 187 General Appearance: lethargic EENT: normal ENT inspection Neck: normal alignment Cardiovascular: normal peripheral pulses, normal rate, regular rhythm Respiratory/Chest: chest wall non-tender, lungs clear, normal breath sounds Abdomen: normal bowel sounds, non tender, soft Extremities: normal inspection Edema: no edema noted Arm (L), no edema noted Arm (R), no edema noted Leg (L), no edema noted Leg (R), no edema noted Pedal (L), no edema noted Pedal (R), no edema noted Generalized Neurologic: responsive, motor weakness Skin: normal pigmentation, warm/dry Mansoor Villafuerte DO Jul 26, 2018 12:46
--- NOTE | 2018-07-26 13:17 | Nephrology Progress Note ---
Assessment/Plan Problem List: (1) Acute on chronic renal failure (2) Hypothyroidism (3) Urinary retention (4) Anemia Assessment: low Iron and low folate Assessment Renal failure- Acute , likely due to retention HyperNatremia Anemia COPD HypoThyroidism Psychosis Plan Ramirez- D5W adjust rate- adjust synthroid dose- PO folic- IV Iron- flomax and Proscar- breathing treatments- Psych meds per Psych- A1C WNL- Subjective ROS Limited/Unobtainable: No Objective Objective Last 24 Hour Vital Signs Date Time Temp Pulse Resp B/P (MAP) Pulse Ox O2 Delivery O2 Flow Rate FiO2 07/26/18 09:00 Room Air 07/26/18 08:00 97.6 56 12 112/66 (81) 98 97.6 07/26/18 06:41 59 07/26/18 04:00 96.8 53 16 90/60 (70) 96 96.8 07/26/18 00:00 97.1 59 17 97/66 (76) 95 97.1 07/25/18 21:00 Room Air 07/25/18 20:07 64 18 Room Air 21 07/25/18 20:00 97.9 60 20 106/70 (82) 96 97.9 07/25/18 16:00 97.4 63 19 122/74 (90) 98 97.4 Intake and Output 07/25/18 07/26/18 19:00 07:00 Intake Total 1400 ml 1000 ml Output Total 2000 ml 3000 ml Balance -600 ml -2000 ml Intake Oral 500 ml IV Total 400 ml 500 ml Other 1000 ml Output Urine Total 2000 ml 3000 ml Laboratory Tests 07/26/18 05:45: White Blood Count 5.6, Red Blood Count 4.10L, Hemoglobin 12.1L, Hematocrit 36.3L , Mean Corpuscular Volume 89, Mean Corpuscular Hemoglobin 29.6, Mean Corpuscular Hemoglobin Concent 33.4, Red Cell Distribution Width 11.8, Platelet Count 190, Mean Platelet Volume 6.0L, Neutrophils (%) (Auto) 61.5, Lymphocytes ( %) (Auto) 23.0, Monocytes (%) (Auto) 7.5, Eosinophils (%) (Auto) 6.8H, Basophils (%) (Auto) 1.3, Sodium Level 145, Potassium Level 4.3, Chloride Level 114H, Carbon Dioxide Level 21, Anion Gap 10, Blood Urea Nitrogen 18, Creatinine 1.6H, Estimat Glomerular Filtration Rate 44.3, Glucose Level 86, Calcium Level 8.6, Phosphorus Level 3.6, Magnesium Level 1.9, Total Bilirubin 0.3, Aspartate Amino Transf (AST/SGOT) 16, Alanine Aminotransferase (ALT/SGPT) 27, Alkaline Phosphatase 80, Total Protein 6.1L, Albumin 3.1L, Globulin 3.0, Albumin/ Globulin Ratio 1.0 Height (Feet): 5 Height (Inches): 4.00 Weight (Pounds): 187 General Appearance: no apparent distress Cardiovascular: normal rate Respiratory/Chest: lungs clear Abdomen: soft Objective no change Gamal Garcia MD Jul 26, 2018 13:17
[2018-07-26] MEDS ORDERED: KLONOPIN1 MG ORAL (14:38)
[2018-07-26] MEDS ORDERED: FOLIC ACID1 MG ORAL (14:39)
[2018-07-26] MEDS ORDERED: TAMSULOSIN HCL0.4 MG ORAL (14:39)
[2018-07-26] MEDS ORDERED: ZYPREXA10 MG ORAL (14:39)
[2018-07-26] MEDS ORDERED: ATIVAN1 MG ORAL (14:40)
[2018-07-26] MEDS ORDERED: MONTELUKAST SOD10 MG ORAL (14:40)
[2018-07-26] MEDS ORDERED: PROTONIX40 MG ORAL (14:40)
[2018-07-26] MEDS ORDERED: SYNTHROID25 MCG ORAL (14:41)
[2018-07-26] MEDS ORDERED: TRAMADOL HCL50 MG ORAL (14:41)
[2018-07-26] MEDS ORDERED: TOPIRAMATE100 MG ORAL (14:41)
[2018-07-26] MEDS ORDERED: IMODIUM MULTI-1 EACH PO (14:42)
[2018-07-26] MEDS ORDERED: MILK OF MA400 MG/51 ORAL (14:43)
[2018-07-26] MEDS ORDERED: D5 1/2NS 1000ml IV ONE (15:58)
[2018-07-26 16:05] VITALS: BP 109/70
[2018-07-26] MEDS: Montelukast 10mg tablet ORAL SCH (17:37)
[2018-07-26] MEDS ORDERED: Iron Sucrose 100 MG in NS 55 ML IV SCH (21:00)
--- NOTE | 2018-07-26 22:00 | Progress Note ---
DATE: 07/26/2018 NOTE: POOR AUDIO SUBJECTIVE: The patient is a 62-year-old male patient with pyelonephritis, but this patient has also a lot of mood lability and agitation. diagnosed with paranoid schizophrenia. So, his attending has requested daily psychiatric consultation. MENTAL STATUS EXAMINATION: This is a 62-year-old male. Appearance is disheveled. Attitude, irritable and agitated. Affect guarded and restricted. Intellect poor. Mood, depressed and anxious. Motor activity, psychomotor agitation. Attention span is poor. Orientation x2. Speech is pressured. Thought process is disorganized and logical. Thought content, auditory hallucinations or paranoid delusions. Insight and judgment is poor. DIAGNOSIS: Paranoid schizophrenia with acute exacerbation. PLAN: Treat the patient with Zyprexa at a dose of 10 mg twice a day, mg twice a day, Ativan 1 mg every 6 hours p.r.n. anxiety and agitation. Provided 20 minutes of cognitive behavioral therapy to identify automatic negative thoughts and help him to convert those to more positive thoughts to reduce depression and suicidality. . Chart reviewed. Discussed with staff. Seen and assessed in his room. Shantanu Way M.D. DR: MONO JOB#: [id number] CC:
--- NOTE | 2018-07-27 09:23 | Discharge Summary ---
Discharge Summary Discharge Summary _ DATE OF ADMISSION: 07/23/2018 DATE OF DISCHARGE: 07/26/2018 CONSULTANTS: Dr. Shantanu Obrien BRIEF HOSPITAL COURSE: Patient is a 62-year-old male, from senior living, presented to ED due to urinary retention, agitation and confusion. He complained of left flank and left lower quadrant pain. Per report from retirement facility, he was having difficulty urinating and patient was unable to void all day. There was no reported fever or chills. No nausea no vomiting. He has history of COPD, ATN, hypothyroidism and asthma. On evaluation at ED, there was tenderness to the left lower quadrant and suprapubic region. Blood work showed no leukocytosis, hemoglobin was 13, hematocrit 40, creatinine was elevated to 1.8, BUN 30. Ramirez catheter was inserted. Urinalysis did not show any infection. Chest x-ray showed no acute disease. He was admitted for evaluation of renal failure, urinary retention and anemia. He was started on IV fluids. Kidney function was monitored. He was started on Proscar and Flomax. There were no signs of infection. He was observed off antibiotics. He was given breathing treatment. Anemia workup done showed deficient iron and folic acid. He was given IV iron and po folate. He did not require blood transfusion. TSH was elevated. Levothyroxine was increased to 50 g daily. Patient was confused with disorganized thought process. He was seen by psychiatrist. He was diagnosed with paranoid schizophrenia in acute exacerbation, worsened by distress of his medical illness. He was given Zyprexa 10 mg twice a day to stabilize mood, reduce depression and anxiety. He was given Ativan as needed. Kidney function improved. Creatinine down trended. Hemoglobin levels were stable. Blood culture did not isolate any growth He was eventually discharged back to senior living with Ramirez catheter. FINAL DIAGNOSES: Acute renal failure secondary to urinary retention Hypernatremia Anemia COPD Hypothyroidism Paranoid schizophrenia with acute exacerbation ATN Asthma DISPOSITION: Patient was discharged to [facility] convalescent. DISCHARGE MEDICATIONS: Refer to Discharge Medication List. I have been assigned to dictate discharge summary on this account, and I was not involved in the patient's management. Kalli Mcadams NP Jul 27, 2018 09:23
--- NOTE | 2018-07-28 | Consultation ---
DATE OF CONSULTATION: 07/26/2018 NOTE: POOR AUDIO PSYCHOTHERAPY CONSULTATION CONSULTING PHYSICIAN: Segundo Holley PsyD. TREATING ATTENDING PHYSICIAN: Mansoor Villafuerte D.O. HISTORY: The patient is a 62-year-old male from [facility]. The patient was brought into the hospital for pyelonephritis. Apparently, the patient is having difficulty coping with agitation, psychotherapy. This patient has a history of schizophrenia the patient is also combative. This clinician assessed this patient. The patient remains agitated and irritable. The patient states that he has in the hospital. At this time, denies suicidal or homicidal thoughts of ideation. Denies any auditory or visual hallucinations. He has signs of irritability and agitation. He states that . At this time, the patient is cooperative with this clinician thoughts. He does have thoughts of irritability with nursing staff. PAST MEDICAL HISTORY: Includes a history of hypothyroidism, asthma, hypertension, and COPD. ALLERGIES: The patient is allergic to Flagyl, Compazine, Haldol, and . SUBSTANCE ABUSE HISTORY: There is no history of alcohol use, illicit substance use, or smoking cigarettes. PSYCHIATRIC HISTORY: The patient has a history of schizophrenia, in the past. SOCIAL HISTORY: The patient is a 62-year-old patient from [facility]. Financially sustained through [facility]. MENTAL STATUS EXAMINATION: The patient is alert and oriented to person, place, and time. His mood is anxious. Affect is irritable. Thought process, disorganized. Thought content, delusional. The patient has poor attention and concentration. Poor insight, judgment, and impulse control. DIAGNOSES: AXIS I Paranoid schizophrenia. AXIS II Deferred. AXIS III . PLAN: Provided the patient with reality orientation and supportive psychotherapy. interventions, and coping skills. Continue with behavioral management. Continue poor frustration tolerance. This clinician has reviewed the patient's chart and discussed the treatment with treatment team. Segundo Holley PsyD. DR: LINDA JOB#: [id number] CC:
== END 2018-07-26 19:40 | DRG 683 ==
LOC: EDBD 19:38 → EMR 20:37 → 4E 21:25 → EDBEDREQ 21:31 → 4E 07-24 07:30
DX: N17.0 Acute kidney failure with tubular necrosis (principal); N39.0 Urinary tract infection, site not specified; E87.0 Hyperosmolality and hypernatremia; F20.0 Paranoid schizophrenia; R33.9 Retention of urine, unspecified; J44.9 Chronic obstructive pulmonary disease, unspecified; E03.9 Hypothyroidism, unspecified; J45.909 Unspecified asthma, uncomplicated; Z88.8 Allergy status to other drugs, medicaments and biological substances; R45.1 Restlessness and agitation; D64.9 Anemia, unspecified; K21.9 Gastro-esophageal reflux disease without esophagitis; F17.200 Nicotine dependence, unspecified, uncomplicated; Z88.1 Allergy status to other antibiotic agents
CPT/HCPCS: 36415; 71045; 80048; 80053; 80061; 81001; 81003; 82550; 82553; 82607; 82728; 82746; 82977; 83036; 83540; 83550; 83605; 83735; 83880; 84100; 84133; 84300; 84443; 84484; 84550; 85025; 85651; 86140; 87040; 89050; 93005; 94664; 96360; 99285

== ENCOUNTER 2018-11-10 17:59 | Inpatient (IN) | payer MEDICARE, OTHER ==
[~2018-11-10] VITALS: Ht 177.8 cm; Wt 84.6 kg
--- NOTE | 2018-11-10 07:22 | NUR ---
HAND-OFF: Report given to Linda Schaffer RN. Patient in stable condition, endorsed plan of care.
[~2018-11-10 17:59] MED LIST changes: +AMBIEN5 MG ORAL; +ATIVAN0.5 MG ORAL; +ATIVAN1 MG ORAL; +DULCOLAX10 MG RC; +FLEET ENEMA133 M1 RC; +FOLIC ACID1 MG ORAL; +IMODIUM MULTI-1 EACH PO; +KLONOPIN2 MG PO; +MILK OF MA400 MG/51 ORAL; +MONTELUKAST SOD10 MG ORAL; +SEROQUEL50 MG ORAL; +ZYPREXA10 MG ORAL
[2018-11-10 18:05] VITALS: BP 110/61
--- NOTE | 2018-11-10 18:05 | NUR ---
ED Nurse Note: PT BROUGHT IN BY R26 FROM [facility]. PT C/O PAINFUL COUGH, DYSPNEA AND CHEST PAIN X 3 DAYS. RR18 WITH O2SAT 98% ON RA. LUNG SOUNDS CLEAR IN ALL LOBES. NO SIGNS OF RESPIRATORY DISTRESS. NO RETRACTIONS OBSERVED.
--- NOTE | 2018-11-10 18:05 | NUR ---
ED Nurse Note: PT ONLY C/O PAIN WHEN COUGHING. NO COUGHING OBSERVED AT BEDSIDE. PT DENIES PAIN AT THIS TIME.
[2018-11-10] MEDS ORDERED: BACLOFEN5 MG PO ×2 (18:11→19:57)
[2018-11-10] MEDS ORDERED: TRAZODONE HCL100 MG ORAL (18:16)
[2018-11-10] MEDS ORDERED: MULTIVITAMINS1 EAC8 ORAL (18:16)
[2018-11-10] MEDS ORDERED: FLEET ENEMA133 ML RECTAL ×2 (18:16→20:03)
[2018-11-10] MEDS ORDERED: NORCO 5-325 TA1 EACH ORAL ×2 (18:16→20:11)
[2018-11-10] MEDS ORDERED: IBUPROFEN600 MG ORAL (18:16)
[2018-11-10] MEDS ORDERED: Sodium Chloride 500ML 500 ML IV ONE (18:22)
[2018-11-10] MEDS ORDERED: Solu-MEDROL 125mg Inj IVP ONE (18:30)
[2018-11-10] MEDS: Ipratropium 0.02% Inh Soln 2.5ml UD HHN SCH ×3 (18:44→19:04)
[2018-11-10] MEDS: Albuterol ud Inhalation HHN SCH ×3 (18:44→19:03)
[2018-11-10 19:02] LABS: BASOPHILS % (AUTO) 1.4 % (0.0-2.0); EOSINOPHILS % (AUTO) 5.1 % (0.0-3.0); HEMOGLOBIN 11.6 G/DL (14.2-18.0); MEAN CORPUSCULAR VOLUME 92 FL (80-99); MONOCYTES % (AUTO) 9.3 % (1.0-10.0); NEUTROPHILS % (AUTO) 68.2 % (45.0-75.0); PLATELET COUNT 214 K/UL (150-450); RED CELL DISTRIBUTION WIDTH 13.3 % (11.6-14.8); WHITE BLOOD COUNT 8.3 K/UL (4.8-10.8)
--- NOTE | 2018-11-10 19:07 | NUR ---
ED Nurse Note: REPORT GIVEN TO KAROLINE AVILES.
--- NOTE | 2018-11-10 19:08 | NUR ---
ED Nurse Note: Received report from Zeyad/ KAROLINE. Pt is A/O X4. Waing for transfer.
[2018-11-10 19:14] LABS: ANION GAP 12 mmol/L (5-15); BLOOD UREA NITROGEN 14 mg/dL (7-18); CALCIUM 8.6 MG/DL (8.5-10.1); CARBON DIOXIDE 28 MMOL/L (21-32); CHLORIDE 94 MMOL/L (98-107); CREATININE 1.6 MG/DL (0.55-1.30); POTASSIUM 3.8 MMOL/L (3.5-5.1); SODIUM 134 MMOL/L (136-145)
--- NOTE | 2018-11-10 19:24 | Emergency Room Report ---
History of Present Illness General Chief Complaint: Chest Pain Source: Patient Present Illness HPI 63-year-old male presents ED for evaluation. Patient brought in by EMS for reported chest pain and shortness of breath. Coming from care home facility. Patient states he's been having a cough and shortness of breath for the last 3 days. History of COPD. Cough is productive with yellowish phlegm. States he started to develop chest pain after. Midsternal, 5 out of 10, sharp, nonradiating. Worse with coughing. Denies fevers or chills. Given breathing treatments by EMS. No other aggravating relieving factors. Denies any other associated symptoms Allergies: Coded Allergies: CHLORPROMAZINE (Unverified Allergy, Unknown, 05/24/18) CLOZAPINE (Unverified Allergy, Unknown, 05/24/18) DIVALPROEX SODIUM (Unverified Allergy, Unknown, 05/24/18) HALOPERIDOL (Unverified Allergy, Unknown, 05/24/18) SERTRALINE (Unverified Allergy, Unknown, 05/24/18) Uncoded Allergies: CLOZASIL (Allergy, Unknown, 07/23/18) Patient History Past Medical History: COPD, GERD, seizures, psych hx Past Surgical History: none Pertinent Family History: none Social History: Denies: smoking, alcohol use, drug use Immunizations: UTD Reviewed Nursing Documentation: PMH: Agreed; PSxH: Agreed Nursing Documentation-PMH Past Medical History: No History, Except For Hx Cardiac Problems: No Hx Asthma: Yes Hx COPD: Yes Hx Cancer: Yes Hx Gastrointestinal Problems: Yes - GERD, pancreatitis Hx Seizures: Yes Review of Systems All Other Systems: negative except mentioned in HPI Physical Exam Vital Signs Date Time Temp Pulse Resp B/P (MAP) Pulse Ox O2 Delivery O2 Flow Rate FiO2 11/10/18 18:03 98.1 80 20 164/72 98 Room Air 11/10/18 18:45 21 Sp02 EP Interpretation: reviewed, normal General Appearance: no apparent distress, alert, GCS 15, non-toxic Head: normocephalic, atraumatic Eyes: bilateral eye normal inspection, bilateral eye PERRL ENT: hearing grossly normal, normal pharynx, no angioedema, normal voice Neck: full range of motion, supple/symm/no masses Respiratory: chest non-tender, decreased breath sounds, speaking full sentences , wheezing, other - reproducible anterior chest wall pain Cardiovascular #1: regular rate, rhythm, no edema Cardiovascular #2: 2+ carotid (R), 2+ carotid (L), 2+ radial (R), 2+ radial (L) , 2+ dorsalis pedis (R), 2+ dorsalis pedis (L) Gastrointestinal: normal bowel sounds, non tender, soft, non-distended, no guarding, no rebound Rectal: deferred Genitourinary: normal inspection, no CVA tenderness Musculoskeletal: back normal, gait/station normal, normal range of motion, non- tender Neurologic: alert, oriented x3, responsive, motor strength/tone normal, sensory intact, speech normal Psychiatric: judgement/insight normal, memory normal, mood/affect normal, no suicidal/homicidal ideation Reflexes: 3+ bicep (R), 3+ bicep (L), 3+ tricep (R), 3+ tricep (L), 3+ knee (R) , 3+ knee (L) Skin: normal color, no rash, warm/dry, well hydrated Lymphatic: no adenopathy Medical Decision Making Diagnostic Impression: Primary Impression: COPD (chronic obstructive pulmonary disease) Qualified Codes: J44.9 - Chronic obstructive pulmonary disease, unspecified Additional Impressions: Acute on chronic renal failure Qualified Codes: N17.9 - Acute kidney failure, unspecified; N18.9 - Chronic kidney disease, unspecified Pneumonia Qualified Codes: J18.1 - Lobar pneumonia, unspecified organism ER Course Hospital Course 63-year-old M presenting to ED with SOB. h/o COPD Differential diagnoses include: Pneumonia, CHF exacerbation, pneumothorax, fluid overload Clinical course Patient placed on stretcher. On agent based modeler with stable vitals. After initial history and physical, I ordered nebulizer treatments. I ordered labs, IV fluids, EKG, chest x-ray, blood cultures, UA. Labs - no leukocytosis noted, hemoglobin/hematocrit stable, Cr 1.6, lactate okay , troponins negative EKG - NSR, no acute ischemic changes interpreted by me CXR - bibasilar infiltrates Antibiotics given. Steroids given Case discussed with Dr. Zamudio (covering for Villafuerte) and he agreed to the patient to his service for further care and support I feel this is a highly complex case requiring extensive working including EKG/ Rhythm strip, Xray/CT/US, Blood/urine lab work, repeat exams while in ED, and administration of strong opiates/narcotics for pain control, admission to hospital or close patient follow up. Diagnosis - COPD exacerbation, acute on chronic renal failure, pneumonia Patient admitted to telemetry in serious condition Labs Test 11/10/18 18:45 11/10/18 19:30 White Blood Count 8.3 K/UL (4.8-10.8) Red Blood Count 3.80 M/UL (4.70-6.10) Hemoglobin 11.6 G/DL (14.2-18.0) Hematocrit 35.0 % (42.0-52.0) Mean Corpuscular Volume 92 FL (80-99) Mean Corpuscular Hemoglobin 30.6 PG (27.0-31.0) Mean Corpuscular Hemoglobin Concent 33.2 G/DL (32.0-36.0) Red Cell Distribution Width 13.3 % (11.6-14.8) Platelet Count 214 K/UL (150-450) Mean Platelet Volume 6.1 FL (6.5-10.1) Neutrophils (%) (Auto) 68.2 % (45.0-75.0) Lymphocytes (%) (Auto) 16.0 % (20.0-45.0) Monocytes (%) (Auto) 9.3 % (1.0-10.0) Eosinophils (%) (Auto) 5.1 % (0.0-3.0) Basophils (%) (Auto) 1.4 % (0.0-2.0) Sodium Level 134 MMOL/L (136-145) Potassium Level 3.8 MMOL/L (3.5-5.1) Chloride Level 94 MMOL/L (98-107) Carbon Dioxide Level 28 MMOL/L (21-32) Anion Gap 12 mmol/L (5-15) Blood Urea Nitrogen 14 mg/dL (7-18) Creatinine 1.6 MG/DL (0.55-1.30) Estimat Glomerular Filtration Rate 44.2 mL/min (>60) Glucose Level 108 MG/DL (74-106) Lactic Acid Level 1.40 mmol/L (0.4-2.0) Calcium Level 8.6 MG/DL (8.5-10.1) Total Bilirubin 0.3 MG/DL (0.2-1.0) Aspartate Amino Transf (AST/SGOT) 17 U/L (15-37) Alanine Aminotransferase (ALT/SGPT) 23 U/L (12-78) Alkaline Phosphatase 79 U/L (46-116) Total Creatine Kinase 96 U/L (26-308) Creatine Kinase MB 2.9 NG/ML (0.0-3.6) Creatine Kinase MB Relative Index 3.0 Troponin I 0.003 ng/mL (0.000-0.056) Pro-B-Type Natriuretic Peptide 14 pg/mL (0-125) Total Protein 6.8 G/DL (6.4-8.2) Albumin 3.4 G/DL (3.4-5.0) Globulin 3.4 g/dL Albumin/Globulin Ratio 1.0 (1.0-2.7) Urine Color Pale yellow Urine Appearance Clear Urine pH 6 (4.5-8.0) Urine Specific [place] 1.010 (1.005-1.035) Urine Protein Negative (NEGATIVE) Urine Glucose (UA) Negative (NEGATIVE) Urine Ketones Negative (NEGATIVE) Urine Blood Negative (NEGATIVE) Urine Nitrite Negative (NEGATIVE) Urine Bilirubin Negative (NEGATIVE) Urine Urobilinogen Normal MG/DL (0.0-1.0) Urine Leukocyte Esterase Negative (NEGATIVE) EKG Diagnostic Results Rate: normal Rhythm: NSR ST Segments: no acute changes ASA given to the pt in ED: No Rhythm Strip Diag. Results EP Interpretation: yes Rhythm: NSR, no PVC's, no ectopy Chest X-Ray Diagnostic Results Chest X-Ray Diagnostic Results : Chest X-Ray Ordered: Yes # of Views/Limited/Complete: 1 View Indication: Shortness of Breath EP Interpretation: Yes Interpretation: no pneumothorax, other - bibasilar infiltrates Impression: Other - pneumonia Electronically Signed by: Electronically signed by Grupo Lyles MD Last Vital Signs Date Time Temp Pulse Resp B/P (MAP) Pulse Ox O2 Delivery O2 Flow Rate FiO2 11/10/18 19:06 71 18 99 Room Air 21 11/10/18 18:05 98.3 110/61 Status: improved Disposition: ADMITTED INPATIENT Condition: Serious Referrals: Mansoor Villafuerte DO (PCP) Grupo Lyles MD Nov 10, 2018 19:23
[2018-11-10 19:29] LABS: ALANINE AMINOTRANSFERASE 23 U/L (12-78); ALBUMIN 3.4 G/DL (3.4-5.0); ALKALINE PHOSPHATASE 79 U/L (46-116); ASPARTATE AMINO TRANSFERASE 17 U/L (15-37); BILIRUBIN,TOTAL 0.3 MG/DL (0.2-1.0); CKMB 2.9 NG/ML (0.0-3.6); CREATINE KINASE 96 U/L (26-308)
[2018-11-10] MEDS ORDERED: Piperacillin/Tazobactam 3.375 GM in NS 110 ML IVPB ONE (19:30)
[2018-11-10] MEDS ORDERED: Azithromycin 500 MG in NS 275 ML IV ONE (19:30)
[2018-11-10 19:33] LABS: APPEARANCE,URINE CLEAR; BILIRUBIN, URINE NEGATIVE (NEGATIVE); COLOR,URINE PALE YELLOW; GLUCOSE, URINE (UA) NEGATIVE (NEGATIVE); KETONES,URINE NEGATIVE (NEGATIVE); LEUKOCYTE ESTERASE ,URINE NEGATIVE (NEGATIVE); NITRITE,URINE NEGATIVE (NEGATIVE); PH,URINE 6 (4.5-8.0); PROTEIN,URINE NEGATIVE (NEGATIVE); UROBILINOGEN,URINE NORMAL MG/DL (0.0-1.0)
[2018-11-10] MEDS ORDERED: DOCUSATE SODIU100 MG ORAL (19:59)
[2018-11-10] MEDS ORDERED: BISACODYL10 M1 RC (20:00)
[2018-11-10] MEDS ORDERED: MILK OF MA400 MG/51 ORAL (20:07)
[2018-11-10] MEDS ORDERED: SYNTHROID100 MCG ORAL (20:16)
[2018-11-10] MEDS ORDERED: ACETAMINOPHEN500 M3 ORAL (20:21)
--- NOTE | 2018-11-10 21:35 | NUR ---
ED Nurse Note: Called Tele and was told that bed is not ready.
--- NOTE | 2018-11-10 21:50 | NUR ---
ED Nurse Note: Called Tele again and they need more time to get ready for bed.
--- NOTE | 2018-11-10 22:15 | NUR ---
TRANSFER TO FLOOR: Patient transferred to Tele/220 as ordered . Report given to Jp/RN. Belongings sent with PT and rechecked with RN.Pt is A/o x4. VSS.
--- NOTE | 2018-11-10 22:20 | NUR ---
NURSE NOTES: Received report from KAROLINE Alvarez. from ED. patient arrived on the floor via gurney and assisted to bed with staff. Belongings checked with nurse at bedside. Wang asked to be placed in hospital safe, per patients request. Will call MD for new orders
[2018-11-10 22:30] VITALS: BP 135/76
--- NOTE | 2018-11-10 22:30 | NUR ---
NURSE NOTES: Spoke with Mitra, covering for Robb. Received new orders and carried out as planned. Will endorse plan of care.
[2018-11-11] VITALS: BP 150/54
[2018-11-11] MEDS ORDERED: Acetaminophen 500mg (ES) tab ORAL PRN (00:30)
[2018-11-11] MEDS ORDERED: Milk of Magnesia 30ml Ud ORAL PRN (00:30)
[2018-11-11] MEDS ORDERED: Fleet's Enema 133ml RECTAL PRN (00:30)
[2018-11-11 04:00] VITALS: BP 126/60
[2018-11-11] MEDS: Albuterol ud Inhalation HHN PRN ×3 (07:02→23:41)
[2018-11-11 08:00] VITALS: BP 126/75
[2018-11-11 08:33] LABS: HEMATOCRIT 38.6 % (42.0-52.0); HEMOGLOBIN 12.9 G/DL (14.2-18.0); MEAN CORPUSCULAR VOLUME 90 FL (80-99); PLATELET COUNT 276 K/UL (150-450); RED BLOOD COUNT 4.29 M/UL (4.70-6.10); RED CELL DISTRIBUTION WIDTH 13.4 % (11.6-14.8); WHITE BLOOD COUNT 9.6 K/UL (4.8-10.8)
[2018-11-11] MEDS: LORazepam 1mg tab ORAL PRN (08:49)
[2018-11-11] MEDS: Multivitamin w/Minerals tab ORAL SCH (08:50)
[2018-11-11] MEDS: Docusate 100mg cap ORAL SCH (08:50)
[2018-11-11] MEDS: Tamsulosin 0.4mg cap ORAL SCH ×2 (08:50→17:21)
[2018-11-11] MEDS: OLANZapine 10mg tab ORAL SCH ×2 (08:50→17:22)
[2018-11-11] MEDS ORDERED: Advair 100/50 Inhaler - 14 dose INH SCH (09:00)
[2018-11-11 09:27] LABS: ALANINE AMINOTRANSFERASE 25 U/L (12-78); ALBUMIN 3.8 G/DL (3.4-5.0); ALBUMIN/GLOBULIN RATIO 1.1 (1.0-2.7); ALKALINE PHOSPHATASE 86 U/L (46-116); ANION GAP 12 mmol/L (5-15); ASPARTATE AMINO TRANSFERASE 15 U/L (15-37); BILIRUBIN,TOTAL 0.4 MG/DL (0.2-1.0); BLOOD UREA NITROGEN 18 mg/dL (7-18); CALCIUM 9.7 MG/DL (8.5-10.1); CARBON DIOXIDE 24 MMOL/L (21-32); CHLORIDE 108 MMOL/L (98-107); CREATININE 1.6 MG/DL (0.55-1.30); POTASSIUM 4.4 MMOL/L (3.5-5.1); SODIUM 144 MMOL/L (136-145)
[2018-11-11] MEDS: Advair 100/50 Inhaler - 14 dose INH SCH ×2 (09:55→18:00)
--- NOTE | 2018-11-11 10:59 | Infectious Diseases Prog Note ---
Assessment/Plan Assessment/Plan ID consult dictated Subjective Allergies: Coded Allergies: CHLORPROMAZINE (Unverified Allergy, Unknown, 05/24/18) CLOZAPINE (Unverified Allergy, Unknown, 05/24/18) DIVALPROEX SODIUM (Unverified Allergy, Unknown, 05/24/18) HALOPERIDOL (Unverified Allergy, Unknown, 05/24/18) SERTRALINE (Unverified Allergy, Unknown, 05/24/18) Uncoded Allergies: CLOZASIL (Allergy, Unknown, 07/23/18) Objective Vital Signs Last 24 Hour Vital Signs Date Time Temp Pulse Resp B/P (MAP) Pulse Ox O2 Delivery O2 Flow Rate FiO2 11/11/18 07:04 84 20 Nasal Cannula 2.0 28 11/11/18 07:02 84 20 94 Room Air 21 11/11/18 04:00 97 11/11/18 04:00 97.0 95 18 126/60 (82) 96 11/11/18 00:00 84 11/11/18 00:00 96.4 71 19 150/54 (86) 95 11/10/18 23:50 Nasal Cannula 2.0 11/10/18 22:40 88 11/10/18 22:30 96.8 89 18 135/76 (95) 97 11/10/18 22:15 98.1 67 18 112/63 99 Room Air 21 11/10/18 19:06 71 18 99 Room Air 21 11/10/18 19:05 71 18 99 Room Air 21 11/10/18 18:56 68 18 99 Room Air 21 11/10/18 18:56 68 18 98 Room Air 21 11/10/18 18:46 72 18 98 Room Air 21 11/10/18 18:45 72 18 Room Air 21 11/10/18 18:05 98.3 68 14 110/61 100 Room Air 11/10/18 18:05 68 14 Room Air 11/10/18 18:03 98.1 80 20 164/72 98 Room Air Height (Feet): 5 Height (Inches): 10.00 Weight (Pounds): 220 Microbiology Date/Time Source Procedure Growth Status 11/10/18 18:44 Nasal Nares Influenza Types A,B Antigen ([facility]) - Final Complete Laboratory Tests Test 11/10/18 18:45 11/10/18 19:30 11/11/18 07:51 White Blood Count 8.3 K/UL (4.8-10.8) 9.6 K/UL (4.8-10.8) Red Blood Count 3.80 M/UL (4.70-6.10) L 4.29 M/UL (4.70-6.10) L Hemoglobin 11.6 G/DL (14.2-18.0) L 12.9 G/DL (14.2-18.0) L Hematocrit 35.0 % (42.0-52.0) L 38.6 % (42.0-52.0) L Mean Corpuscular Volume 92 FL (80-99) 90 FL (80-99) Mean Corpuscular Hemoglobin 30.6 PG (27.0-31.0) 30.1 PG (27.0-31.0) Mean Corpuscular Hemoglobin Concent 33.2 G/DL (32.0-36.0) 33.4 G/DL (32.0-36.0) Red Cell Distribution Width 13.3 % (11.6-14.8) 13.4 % (11.6-14.8) Platelet Count 214 K/UL (150-450) 276 K/UL (150-450) Mean Platelet Volume 6.1 FL (6.5-10.1) L 5.4 FL (6.5-10.1) L Neutrophils (%) (Auto) 68.2 % (45.0-75.0) % (45.0-75.0) Lymphocytes (%) (Auto) 16.0 % (20.0-45.0) L % (20.0-45.0) Monocytes (%) (Auto) 9.3 % (1.0-10.0) % (1.0-10.0) Eosinophils (%) (Auto) 5.1 % (0.0-3.0) H % (0.0-3.0) Basophils (%) (Auto) 1.4 % (0.0-2.0) % (0.0-2.0) Sodium Level 134 MMOL/L (136-145) L 144 MMOL/L (136-145) # Potassium Level 3.8 MMOL/L (3.5-5.1) 4.4 MMOL/L (3.5-5.1) Chloride Level 94 MMOL/L (98-107) L 108 MMOL/L (98-107) H Carbon Dioxide Level 28 MMOL/L (21-32) 24 MMOL/L (21-32) Anion Gap 12 mmol/L (5-15) 12 mmol/L (5-15) Blood Urea Nitrogen 14 mg/dL (7-18) 18 mg/dL (7-18) Creatinine 1.6 MG/DL (0.55-1.30) H 1.6 MG/DL (0.55-1.30) H Estimat Glomerular Filtration Rate 44.2 mL/min (>60) 44.2 mL/min (>60) Glucose Level 108 MG/DL (74-106) H 128 MG/DL (74-106) H Lactic Acid Level 1.40 mmol/L (0.4-2.0) Calcium Level 8.6 MG/DL (8.5-10.1) 9.7 MG/DL (8.5-10.1) Total Bilirubin 0.3 MG/DL (0.2-1.0) 0.4 MG/DL (0.2-1.0) Aspartate Amino Transf (AST/SGOT) 17 U/L (15-37) 15 U/L (15-37) Alanine Aminotransferase (ALT/SGPT) 23 U/L (12-78) 25 U/L (12-78) Alkaline Phosphatase 79 U/L (46-116) 86 U/L (46-116) Total Creatine Kinase 96 U/L (26-308) Creatine Kinase MB 2.9 NG/ML (0.0-3.6) Creatine Kinase MB Relative Index 3.0 Troponin I 0.003 ng/mL (0.000-0.056) Pro-B-Type Natriuretic Peptide 14 pg/mL (0-125) Total Protein 6.8 G/DL (6.4-8.2) 7.4 G/DL (6.4-8.2) Albumin 3.4 G/DL (3.4-5.0) 3.8 G/DL (3.4-5.0) Globulin 3.4 g/dL 3.6 g/dL Albumin/Globulin Ratio 1.0 (1.0-2.7) 1.1 (1.0-2.7) Urine Color Pale yellow Urine Appearance Clear Urine pH 6 (4.5-8.0) Urine Specific [place] 1.010 (1.005-1.035) Urine Protein Negative (NEGATIVE) Urine Glucose (UA) Negative (NEGATIVE) Urine Ketones Negative (NEGATIVE) Urine Blood Negative (NEGATIVE) Urine Nitrite Negative (NEGATIVE) Urine Bilirubin Negative (NEGATIVE) Urine Urobilinogen Normal MG/DL (0.0-1.0) Urine Leukocyte Esterase Negative (NEGATIVE) Differential Total Cells Counted 100 Neutrophils % (Manual) 92 % (45-75) H Lymphocytes % (Manual) 3 % (20-45) L Monocytes % (Manual) 5 % (1-10) Eosinophils % (Manual) 0 % (0-3) Basophils % (Manual) 0 % (0-2) Band Neutrophils 0 % (0-8) Platelet Estimate Adequate Platelet Morphology Normal Red Blood Cell Morphology Normal Current Medications Medications (Trade) Dose Ordered Sig/Cori Route PRN Reason Start Time Stop Time Status Last Admin Dose Admin Acetaminophen (Tylenol) 325 mg Q4H PRN ORAL Mild Pain/Temp > 100.5 11/11/18 00:30 12/11/18 00:29 Acetaminophen (Tylenol) 500 mg EVERY 4 HOURS PRN ORAL Moderate Pain (Pain Scale 4-6) 11/11/18 00:30 12/11/18 00:29 Acetaminophen/ Hydrocodone Bitart ([place] 5/325) 1 tab Q6H PRN ORAL Severe Pain (Pain Scale 7-10) 11/11/18 00:30 11/18/18 00:29 Albuterol Sulfate (Proventil) 2.5 mg Q4H PRN HHN Shortness of Breath 11/11/18 00:30 11/16/18 00:29 11/11/18 07:02 Azithromycin (Zithromax) 500 mg Q24H ORAL 11/11/18 20:00 11/18/18 19:59 Baclofen (Lioresal) 5 mg Q8HR PRN ORAL Muscle spasm 11/11/18 00:30 12/11/18 00:29 Bisacodyl (Dulcolax) 10 mg Q24HRS PRN RECTAL Constipation 11/11/18 00:30 12/11/18 00:29 Ceftriaxone Sodium 1 gm/ Dextrose 55 ml @ 110 mls/hr DAILY IVPB 11/11/18 12:00 11/18/18 11:59 Clonazepam (KlonoPIN) 2 mg TID ORAL 11/11/18 09:00 11/18/18 08:59 11/11/18 08:50 Docusate Sodium (Colace) 100 mg DAILY ORAL 11/11/18 09:00 12/11/18 08:59 11/11/18 08:50 Finasteride (Proscar) 5 mg DAILY ORAL 11/11/18 09:00 12/11/18 08:59 11/11/18 08:49 Folic Acid (Folate) 2 mg DAILY ORAL 11/11/18 09:00 12/11/18 08:59 11/11/18 08:50 Ibuprofen (Advil) 600 mg THREE TIMES A DAY ORAL 11/11/18 09:00 12/11/18 08:59 11/11/18 08:50 Levothyroxine Sodium (Synthroid) 100 mcg DAILY@0600 ORAL 11/11/18 06:00 12/11/18 05:59 11/11/18 05:48 Lorazepam (Ativan) 1 mg Q6HR PRN ORAL For Anxiety 11/11/18 00:30 11/18/18 00:29 Magnesium Hydroxide (Mom) 30 ml QHS PRN ORAL Constipation 11/11/18 00:30 12/11/18 00:29 Montelukast Sodium (Singulair) 10 mg QPM ORAL 11/11/18 16:30 12/11/18 16:29 Multivitamins Therapeutic (Therapeutic Multivitamin) 1 ea DAILY ORAL 11/11/18 09:00 12/11/18 08:59 11/11/18 08:50 Olanzapine (ZyPREXA) 10 mg BID ORAL 11/11/18 09:00 12/11/18 08:59 11/11/18 08:50 Pantoprazole (Protonix) 40 mg BIAC ORAL 11/11/18 06:30 12/11/18 06:29 11/11/18 05:48 Salmeterol Xinafoate/ Fluticasone (Advair 100/50 Diskus) 1 puffs TWICE A DAY INH 11/11/18 09:00 12/11/18 08:59 Sodium Phosphate (Fleet's Sodium Phosl Enema) 133 ml Q24HRS PRN RECTAL Constipation 11/11/18 00:30 12/11/18 00:29 Tamsulosin HCl (Flomax) 0.4 mg BID ORAL 11/11/18 09:00 12/11/18 08:59 11/11/18 08:50 Topiramate (Topamax) 100 mg QHS ORAL 11/11/18 21:00 12/11/18 20:59 Trazodone HCl (Desyrel) 100 mg BEDTIME ORAL 11/11/18 21:00 12/11/18 20:59 Hank Diaz MD Nov 11, 2018 10:59
[2018-11-11 12:00] VITALS: BP 114/71
[2018-11-11] MEDS: cefTRIAXone 1 GM in D5W 55 ML IVPB SCH (14:07)
[2018-11-11 16:00] VITALS: BP 123/74
--- NOTE | 2018-11-11 16:00 | Consultation ---
DATE OF CONSULTATION: 11/11/2018 INFECTIOUS DISEASE CONSULT CONSULTING PHYSICIAN: Hank Diaz M.D. PRIMARY ATTENDING PHYSICIAN: Dr. Yrn Zamudio. REASON FOR CONSULT: COPD exacerbation. HISTORY OF PRESENT ILLNESS: This 63-year-old white male admitted yesterday from a nursing facility complaining of chest pain, shortness of breath, and productive cough with yellowish sputum. The patient has history of COPD and is an active smoker. Today, he denies any symptoms. PAST MEDICAL HISTORY: Significant for COPD, asthma, had urinary retention likely secondary to BPH, hypothyroidism, and paranoid schizophrenia. ALLERGIES: Allergic to chlorpromazine, clozapine, , haloperidol, sertraline, and divalproex. MEDICATIONS: He got a dose of Zithromax and Zosyn in the ER. Currently getting Topamax, trazodone, montelukast, Colace, finasteride, ibuprofen, multivitamin, olanzapine, Flomax, Advair Diskus inhaler, Protonix, levothyroxine, Tylenol, [place], magnesium hydroxide, sodium phosphate, and Ativan. SOCIAL HISTORY: senior living resident. many years ago. He smokes three cigarettes a day. Last time of smoking was two days ago. The patient got flu shot this year. REVIEW OF SYSTEMS: Denies fever, chills, coughing, or shortness of breath. No nausea. No vomiting. No pain. No problem passing urine. PHYSICAL EXAMINATION: VITAL SIGNS: Temperature 97, pulse 84, and blood pressure 120/60. GENERAL APPEARANCE: Well developed, in no acute distress. HEAD AND NECK: Slightly dry mouth, has poor dentition. HEART: Normal rate regular. LUNGS: Clear. ABDOMEN: Soft and nontender. EXTREMITIES: No edema. LABORATORY AND DIAGNOSTIC DATA: WBC 9.6, hemoglobin 12.9, hematocrit 38.6, and platelets 276,000. Sodium 144, potassium 4.4, chloride 108, bicarb 24, BUN 18, and creatinine 1.6. UA was negative for wbc's, nitrite, and blood. Chest x-ray did not show any significant change. IMPRESSION: Chronic obstructive pulmonary disease exacerbation, seems to be mild. The patient is asymptomatic today. The patient has chronic kidney disease, benign prostatic hypertrophy, paranoid schizophrenia, and hypothyroidism. RECOMMENDATION: The patient is started on Zithromax and Rocephin. We will follow up the culture and clinical course. If the patient remains stable then he can be discharged with p.o. antibiotic. At the end of my exam, I thank Dr. Zamudio for involving me in the care of this patient. Hank Diaz M.D. DR: CASSI JOB#: [id number] CC:
[2018-11-11] MEDS: Montelukast 10mg tablet ORAL SCH (17:21)
[2018-11-11] MEDS: Norco 5mg/325mg tab ORAL PRN (17:22)
--- NOTE | 2018-11-11 17:41 | NUR ---
CASE MANAGEMENT: INITIAL REVIEW 63 YO M CONRADO FROM [facility] CC: CP PMHx: COPD. GERD. SZ. SI:COPD EXACERBATION. CP. T 98.1 HR 80 RR 20 B/P 164/72 SATS 98% ON RA NA 134 CL 94 CR 1.6 GLU 108 IS: DUONEB HHN X1 SOLU MEDROL IV X1 NS BOLUS X1 PATIENT ADMITTED TO [facility] 11/10/2018 @ 1906 DCP: PATIENT TO BE DISCHARGED TO SNF ONCE MEDICALLY CLEARED. PLAN OF CARE: IV ANTIBx
--- NOTE | 2018-11-11 18:36 | Consultation ---
Consult Note Assessment/Plan #[id number] COPD exacerbation pna bilateral possible aspiration poor dention psych hx ArchieRachel DO Nov 11, 2018 18:36
--- NOTE | 2018-11-11 19:58 | NUR ---
NURSE NOTES: Received report from KAROLINE Whyte. Pt is resting in bed. Bed is in lowest position, side rails up X2, and call light is within reach. Will continue to monitor.
--- NOTE | 2018-11-11 19:59 | NUR ---
HAND-OFF: Report given to KAROLINE Pyle.
[2018-11-11 20:00] VITALS: BP 100/61
[2018-11-11] MEDS: Solu-MEDROL 40mg Inj IVP SCH (20:33)
[2018-11-11] MEDS: Topiramate 100mg tab ORAL SCH (20:33)
[2018-11-11] MEDS: Azithromycin 250mg tab ORAL SCH (20:33)
[2018-11-11] MEDS: TraZODone 100mg tab ORAL SCH (20:33)
--- NOTE | 2018-11-11 20:45 | History and Physical Report ---
DATE OF ADMISSION: 11/10/[address] Mansoor Villafuerte's patient. I am covering Dr. Mansoor Villafuerte. HISTORY OF PRESENT ILLNESS: The patient is admitted for chest pain and COPD exacerbation. The patient states that he has had chest pain for two days and complaining of shortness of breathing and nonproductive cough for one week. The patient has history of COPD, history of smoking, history of drug abuse. The patient denies nausea, vomiting, or diarrhea. Denies shortness of breath. Denies rectal bleeding. Denies abdominal pain. PAST MEDICAL HISTORY: Significant for COPD, history of psychosis, history of hypothyroidism and BPH, history of constipation, COPD, history of anxiety, history of degenerative joint disease, and constipation. PAST SURGICAL HISTORY: Right lower extremity surgery. SOCIAL HISTORY: History of smoking. History of drug abuse. ALLERGIES: To chlorpromazine, Clozaril, Depakote, Haldol, and sertraline. MEDICATIONS: Albuterol, baclofen, Levoxyl, olanzapine, Protonix, Flomax, and montelukast. FAMILY HISTORY: Noncontributory. REVIEW OF SYSTEMS: HEENT: Denies headaches. RESPIRATORY: Does have wheezing, shortness of breath, and productive cough for one week. CARDIOVASCULAR: Chest pain for two weeks, made worse by deep inspiration and cough. No radiation. GASTROINTESTINAL: Denies nausea, vomiting, or diarrhea. EXTREMITIES: Does have chronic pain syndrome from arthritis and nothing new. PUBLIC RELATIONS OFFICER: No change in speech pattern. PHYSICAL EXAMINATION: VITAL SIGNS: Temperature 96.4 degrees, pulse 71, and blood pressure . HEENT: PERRLA. NECK: Supple. No lymphadenopathy. CHEST: The patient does have mild wheezing bilaterally. CARDIOVASCULAR: Regular rate and rhythm. GASTROINTESTINAL: Soft and nontender. EXTREMITIES: 1+ edema. Reflexes in both sides. He has generalized weakness. LABORATORY DATA: WBC of 8.3, hemoglobin 11.6, and platelets of 214,000. Sodium 134, potassium 3.4, chloride 94, BUN of 14, creatinine of 1.6, and glucose of 108. ASSESSMENT AND PLAN: Chronic obstructive pulmonary disease exacerbation. Chest pain, atypical. I have asked the dining service worker and the sizing sponger to see the patient for the treatment of the chronic obstructive pulmonary disease and chest pain to rule out acute coronary syndrome. The chest pain could be atypical presentation of his chronic obstructive pulmonary disease exacerbation as well. Yrn Zamudio M.D. DR: Pj JOB#: [id number] CC:
--- NOTE | 2018-11-11 21:30 | Consultation ---
DATE OF CONSULTATION: 11/11/2018 PULMONARY CONSULTATION CONSULTING PHYSICIAN: Rachel Almanza D.O. REASON FOR CONSULTATION: Shortness of breath. HISTORY OF PRESENT ILLNESS: Elderly gentleman, brought in by [facility] from his facility with chest pain, shortness of breath. No reports of nausea, vomiting, or diarrhea. He has been having increased phlegm production, low-grade fevers, and hypoxemia for the last three days. He does have a history of COPD. He does still smoke tobacco. It is unclear when he last was treated for any kind of pulmonary or respiratory infection or COPD exacerbation. He has had tolerating p.o. No nausea, vomiting, or diarrhea. Chest pain has been sharp, nonradiating, and is exacerbated with coughing. Breathing treatments he finds are helpful. He denies any signs or symptoms of aspiration. PAST MEDICAL HISTORY: COPD, GERD, seizure, and underlying psychiatric history. MEDICATIONS: Pre-hospital and current hospital medications reviewed, reconciled, and documented in the electronic medical record by dose, frequency, and route. ALLERGIES: Noted in the EMR. SOCIAL HISTORY: Positive for tobacco, alcohol, and drugs. Lives in a long-term. FAMILY HISTORY: Positive for COPD, cancer, gastroesophageal reflux, and seizures. REVIEW OF SYSTEMS: Otherwise negative for chest pain, shortness of breath, nausea, diarrhea, fever. . PHYSICAL EXAMINATION: GENERAL: At the time of my exam, he is alert, he is oriented. He is in no acute distress. He is currently afebrile. VITAL SIGNS: His pulse is 94 through 113. Respirations 22. He is 93% on room air. HEENT: Normocephalic, atraumatic. Poor dentition is noted. Oropharynx is dry. Nasal mucosa is dry. LUNGS: Bilateral rhonchi. No wheezes. HEART: Regular rate and rhythm without murmur. ABDOMEN: Soft, nontender. Positive bowel sounds. EXTREMITIES: edema. SKIN: No rashes or lesions are documented in the nursing notes in the EMR. NEUROLOGIC: No focal neurologic deficits. Cranial nerves are intact. LABORATORY AND DIAGNOSTIC DATA: His white count is 9.6, hemoglobin 12.9, and platelets are 90,000. Sodium is 144, potassium 4.4, chloride 108, bicarbonate 24, BUN 18, creatinine 1.6, and glucose is 128. Urinalysis is negative for leukocyte esterase. No ABG is obtained. Influenza swab was taken, which is negative for influenza A and B. Chest x-ray per ER was obtained showing bibasilar infiltrates, but prior report is not obtained. EMERGENCY ROOM COURSE: The patient was seen, examined, and started on antibiotics and steroids, nebulizer treatments, and O2 to maintain saturations 92%. He is currently stable on O2. ASSESSMENT AND PLAN: 1. Chronic obstructive pulmonary disease exacerbation. 2. Respiratory insufficiency. 3. Gastroesophageal reflux disease. 4. Current tobacco use. 5. Hypoxemia. PLAN: Plan for the patient, continue antibiotics, nebulizers, and steroids as ordered. Follow up chest x-ray in one to two days. DVT prophylaxis, aspiration precautions, O2 to maintain saturations greater than 92%. Possible need for swallow evaluation with poor dentition and high risk of aspiration, and we will continue to follow the patient for the remainder of his hospital stay. Rachel Almanza D.O. DR: BOB JOB#: [id number] CC:
--- NOTE | 2018-11-11 22:59 | NUR ---
HAND-OFF: Report given to KAROLINE Michaels. Plan of care endorsed.
[2018-11-12] MEDS: LORazepam 1mg tab ORAL PRN (00:29)
[2018-11-12] MEDS: Norco 5mg/325mg tab ORAL PRN ×5 (00:30→23:49)
[2018-11-12 04:00] VITALS: BP 100/61
--- NOTE | 2018-11-12 07:50 | NUR ---
NURSE NOTES: Received report from KAROLINE Michaels. Patient in bed resting. No active s/s cardiac, respiratory distress noticed at this time. Dressing on Rt.ear dry and intact. Bed in lowest position, side rails up x2, call light within reach. SR w/ 1AVB, denies pain at this time. Will continue to monitor.
[2018-11-12 08:00] VITALS: BP 116/67
[2018-11-12] MEDS: Advair 100/50 Inhaler - 14 dose INH SCH ×2 (08:25→19:14)
[2018-11-12] MEDS: Albuterol ud Inhalation HHN PRN (08:26)
[2018-11-12] MEDS: Solu-MEDROL 40mg Inj IVP SCH ×2 (08:31→20:13)
[2018-11-12] MEDS: Tamsulosin 0.4mg cap ORAL SCH ×2 (08:32→17:21)
[2018-11-12] MEDS: Docusate 100mg cap ORAL SCH ×2 (08:33→17:24)
[2018-11-12] MEDS: OLANZapine 10mg tab ORAL SCH ×2 (08:33→17:21)
[2018-11-12] MEDS: Multivitamin w/Minerals tab ORAL SCH (08:35)
[2018-11-12] MEDS: cefTRIAXone 1 GM in D5W 55 ML IVPB SCH (08:36)
--- NOTE | 2018-11-12 10:41 | Pulmonology Progress Note ---
Assessment/Plan Assessment/Plan Pulmonary Progress Note REASON FOR CONSULTATION: Shortness of breath. HISTORY OF PRESENT ILLNESS: Elderly gentleman, brought in by [facility] from his facility with chest pain, shortness of breath. No reports of nausea, vomiting, or diarrhea. He has been having increased phlegm production, low-grade fevers, and hypoxemia for the last three days. He does have a history of COPD. He does still smoke tobacco. It is unclear when he last was treated for any kind of pulmonary or respiratory infection or COPD exacerbation. He has had tolerating p.o. No nausea, vomiting, or diarrhea. Chest pain has been sharp, nonradiating, and is exacerbated with coughing. Breathing treatments he finds are helpful. He denies any signs or symptoms of aspiration. PAST MEDICAL HISTORY: COPD, GERD, seizure, and underlying psychiatric history. MEDICATIONS: Pre-hospital and current hospital medications reviewed, reconciled, and documented in the electronic medical record by dose, frequency, and route. ALLERGIES: Noted in the EMR. SOCIAL HISTORY: Positive for tobacco, alcohol, and drugs. Lives in a jail. FAMILY HISTORY: Positive for COPD, cancer, gastroesophageal reflux, and seizures. REVIEW OF SYSTEMS: Otherwise negative for chest pain, shortness of breath, nausea, diarrhea, fever. PHYSICAL EXAMINATION: GENERAL: At the time of my exam, he is alert, he is oriented. He is in no acute distress. He is currently afebrile. VITAL SIGNS NOTED HEENT: Normocephalic, atraumatic. Poor dentition is noted. Oropharynx is dry. Nasal mucosa is dry. LUNGS: Bilateral rhonchi. No wheezes. HEART: Regular rate and rhythm without murmur. ABDOMEN: Soft, nontender. Positive bowel sounds. EXTREMITIES: No edema. SKIN: No rashes or lesions are documented in the nursing notes in the EMR. NEUROLOGIC: No focal neurologic deficits. Cranial nerves are intact. LABORATORY AND DIAGNOSTIC DATA: His white count is 9.6, hemoglobin 12.9, and platelets are 90,000. Sodium is 144, potassium 4.4, chloride 108, bicarbonate 24, BUN 18, creatinine 1.6, and glucose is 128. Urinalysis is negative for leukocyte esterase. No ABG is obtained. Influenza swab was taken, which is negative for influenza A and B. Chest x-ray per ER was obtained showing bibasilar infiltrates, but prior report is not obtained. EMERGENCY ROOM COURSE: The patient was seen, examined, and started on antibiotics and steroids, nebulizer treatments, and O2 to maintain saturations 92%. He is currently stable on O2. ASSESSMENT AND PLAN: 1. Chronic obstructive pulmonary disease exacerbation. 2. Respiratory insufficiency. 3. Gastroesophageal reflux disease. 4. Current tobacco use. 5. Hypoxemia. PLAN: Plan for the patient, continue antibiotics, nebulizers, and steroids as ordered. Follow up chest x-ray in one to two days. DVT prophylaxis, aspiration precautions, O2 to maintain saturations greater than 92%. Possible need for swallow evaluation with poor dentition and high risk of aspiration, and we will continue to follow the patient for the remainder of his hospital stay. Subjective ROS Limited/Unobtainable: No Allergies: Coded Allergies: CHLORPROMAZINE (Unverified Allergy, Unknown, 05/24/18) CLOZAPINE (Unverified Allergy, Unknown, 05/24/18) DIVALPROEX SODIUM (Unverified Allergy, Unknown, 05/24/18) HALOPERIDOL (Unverified Allergy, Unknown, 05/24/18) SERTRALINE (Unverified Allergy, Unknown, 05/24/18) Uncoded Allergies: CLOZASIL (Allergy, Unknown, 07/23/18) Objective Last 24 Hour Vital Signs Date Time Temp Pulse Resp B/P (MAP) Pulse Ox O2 Delivery O2 Flow Rate FiO2 11/12/18 08:33 75 18 98 Room Air 21 11/12/18 07:26 72 18 Room Air 11/12/18 04:00 74 11/12/18 04:00 98.7 98 18 100/61 (74) 95 11/11/18 23:49 94 18 98 Room Air 21 11/11/18 23:41 119 22 92 Room Air 21 11/11/18 21:00 Nasal Cannula 2.0 11/11/18 20:15 90 16 Room Air 21 11/11/18 20:00 115 11/11/18 20:00 98.7 98 18 100/61 (74) 95 11/11/18 16:00 95 11/11/18 16:00 97.7 95 20 123/74 (90) 95 11/11/18 14:20 113 22 93 Room Air 21 11/11/18 12:00 75 11/11/18 12:00 98.2 94 18 114/71 (85) 95 Intake and Output 11/11/18 11/12/18 18:59 06:59 Intake Total 360 ml Balance 360 ml Intake Oral 360 ml # Voids 2 Microbiology Date/Time Source Procedure Growth Status 11/10/18 19:10 Blood Blood Culture - Preliminary NO GROWTH AFTER 24 HOURS Resulted 11/10/18 18:50 Blood Blood Culture - Preliminary NO GROWTH AFTER 24 HOURS Resulted 11/10/18 18:44 Nasal Nares Influenza Types A,B Antigen ([facility]) - Final Complete 11/10/18 21:34 Rectum - Preliminary Resulted 11/10/18 21:34 Rectum VRE Culture - Preliminary Resulted Current Medications Medications (Trade) Dose Ordered Sig/Cori Route PRN Reason Start Time Stop Time Status Last Admin Dose Admin Acetaminophen (Tylenol) 325 mg Q4H PRN ORAL Mild Pain/Temp > 100.5 11/11/18 00:30 12/11/18 00:29 Acetaminophen (Tylenol) 500 mg EVERY 4 HOURS PRN ORAL Moderate Pain (Pain Scale 4-6) 11/11/18 00:30 12/11/18 00:29 Acetaminophen/ Hydrocodone Bitart ([place] 5/325) 1 tab Q6H PRN ORAL Severe Pain (Pain Scale 7-10) 11/11/18 00:30 11/18/18 00:29 11/12/18 05:14 Albuterol Sulfate (Proventil) 2.5 mg Q4H PRN HHN Shortness of Breath 11/11/18 00:30 11/16/18 00:29 11/12/18 08:26 Azithromycin (Zithromax) 500 mg Q24H ORAL 11/11/18 20:00 11/18/18 19:59 11/11/18 20:33 Baclofen (Lioresal) 5 mg Q8HR PRN ORAL Muscle spasm 11/11/18 00:30 12/11/18 00:29 Bisacodyl (Dulcolax) 10 mg Q24HRS PRN RECTAL Constipation 11/11/18 00:30 12/11/18 00:29 Ceftriaxone Sodium 1 gm/ Dextrose 55 ml @ 110 mls/hr DAILY IVPB 11/11/18 12:00 11/18/18 11:59 11/12/18 08:36 Clonazepam (KlonoPIN) 2 mg TID ORAL 11/11/18 09:00 11/18/18 08:59 11/12/18 08:33 Docusate Sodium (Colace) 100 mg DAILY ORAL 11/11/18 09:00 12/11/18 08:59 11/12/18 08:33 Finasteride (Proscar) 5 mg DAILY ORAL 11/11/18 09:00 12/11/18 08:59 11/12/18 08:33 Folic Acid (Folate) 2 mg DAILY ORAL 11/11/18 09:00 12/11/18 08:59 11/12/18 08:32 Ibuprofen (Advil) 600 mg THREE TIMES A DAY ORAL 11/11/18 09:00 12/11/18 08:59 11/12/18 08:35 Levothyroxine Sodium (Synthroid) 100 mcg DAILY@0600 ORAL 11/11/18 06:00 12/11/18 05:59 11/12/18 06:42 Lorazepam (Ativan) 1 mg Q6HR PRN ORAL For Anxiety 11/11/18 00:30 11/18/18 00:29 11/12/18 00:29 Magnesium Hydroxide (Mom) 30 ml QHS PRN ORAL Constipation 11/11/18 00:30 12/11/18 00:29 Methylprednisolone Sodium Succinate (Solu-MEDROL) 40 mg EVERY 12 HOURS IVP 11/11/18 21:00 12/11/18 20:59 11/12/18 08:31 Montelukast Sodium (Singulair) 10 mg QPM ORAL 11/11/18 16:30 12/11/18 16:29 11/11/18 17:21 Multivitamins Therapeutic (Therapeutic Multivitamin) 1 ea DAILY ORAL 11/11/18 09:00 12/11/18 08:59 11/12/18 08:35 Olanzapine (ZyPREXA) 10 mg BID ORAL 11/11/18 09:00 12/11/18 08:59 11/12/18 08:33 Pantoprazole (Protonix) 40 mg BIAC ORAL 11/11/18 06:30 12/11/18 06:29 11/12/18 06:42 Salmeterol Xinafoate/ Fluticasone (Advair 100/50 Diskus) 1 puffs TWICE A DAY INH 11/11/18 09:00 1/29/19 08:59 Sodium Phosphate (Fleet's Sodium Phosl Enema) 133 ml Q24HRS PRN RECTAL Constipation 11/11/18 00:30 12/11/18 00:29 Tamsulosin HCl (Flomax) 0.4 mg BID ORAL 11/11/18 09:00 12/11/18 08:59 11/12/18 08:32 Topiramate (Topamax) 100 mg QHS ORAL 11/11/18 21:00 12/11/18 20:59 11/11/18 20:33 Trazodone HCl (Desyrel) 100 mg BEDTIME ORAL 11/11/18 21:00 12/11/18 20:59 11/11/18 20:33 Humberto Marquez MD Nov 12, 2018 10:41
--- NOTE | 2018-11-12 11:21 | General Progress Note ---
Assessment/Plan Problem List: (1) Abdominal bloating ICD Codes: R14.0 - Abdominal distension (gaseous) SNOMED: 188723568 (2) UTI (urinary tract infection) ICD Codes: N39.0 - Urinary tract infection, site not specified SNOMED: 15979238 (3) Anemia ICD Codes: D64.9 - Anemia, unspecified SNOMED: 674829623 (4) COPD (chronic obstructive pulmonary disease) ICD Codes: J44.9 - Chronic obstructive pulmonary disease, unspecified SNOMED: 75343087 Qualifiers: Qualified Codes: J44.9 - Chronic obstructive pulmonary disease, unspecified (5) Pneumonia ICD Codes: J18.9 - Pneumonia, unspecified organism SNOMED: 199426646 Qualifiers: Qualified Codes: J18.1 - Lobar pneumonia, unspecified organism (6) Acute on chronic renal failure ICD Codes: N17.9 - Acute kidney failure, unspecified; N18.9 - Chronic kidney disease, unspecified SNOMED: 321593133 Qualifiers: Qualified Codes: N17.9 - Acute kidney failure, unspecified; N18.9 - Chronic kidney disease, unspecified Status: progressing Assessment/Plan afebrile reviewed chart and albs nac no cp vitals stable Subjective ROS Limited/Unobtainable: Yes Constitutional: Reports: no symptoms Allergies: Coded Allergies: CHLORPROMAZINE (Unverified Allergy, Unknown, 05/24/18) CLOZAPINE (Unverified Allergy, Unknown, 05/24/18) DIVALPROEX SODIUM (Unverified Allergy, Unknown, 05/24/18) HALOPERIDOL (Unverified Allergy, Unknown, 05/24/18) SERTRALINE (Unverified Allergy, Unknown, 05/24/18) Uncoded Allergies: CLOZASIL (Allergy, Unknown, 07/23/18) Objective Last 24 Hour Vital Signs Date Time Temp Pulse Resp B/P (MAP) Pulse Ox O2 Delivery O2 Flow Rate FiO2 11/12/18 09:00 Nasal Cannula 2.0 11/12/18 08:33 75 18 98 Room Air 21 11/12/18 08:00 69 11/12/18 08:00 97.9 74 18 116/67 (83) 96 11/12/18 07:26 72 18 Room Air 21 11/12/18 04:00 74 11/12/18 04:00 98.7 98 18 100/61 (74) 95 11/11/18 23:49 94 18 98 Room Air 21 11/11/18 23:41 119 22 92 Room Air 21 11/11/18 21:00 Nasal Cannula 2.0 11/11/18 20:15 90 16 Room Air 21 11/11/18 20:00 115 11/11/18 20:00 98.7 98 18 100/61 (74) 95 11/11/18 16:00 95 11/11/18 16:00 97.7 95 20 123/74 (90) 95 11/11/18 14:20 113 22 93 Room Air 21 11/11/18 12:00 75 11/11/18 12:00 98.2 94 18 114/71 (85) 95 Intake and Output 11/11/18 11/12/18 18:59 06:59 Intake Total 360 ml Balance 360 ml Intake Oral 360 ml # Voids 2 Height (Feet): 5 Height (Inches): 10.00 Weight (Pounds): 220 Cardiovascular: normal rate Respiratory/Chest: lungs clear Yrn Zamudio MD Nov 12, 2018 11:21
[2018-11-12 12:00] VITALS: BP 139/78
--- NOTE | 2018-11-12 12:38 | Infectious Diseases Prog Note ---
Assessment/Plan Assessment/Plan A: [employer] TOBACCO/ Asthma exacerbation CKD BPH Paranoid schizophrenia Hypothyroidism P; Continue Rocephin & Zithromax Subjective ROS Limited/Unobtainable: No Constitutional: Reports: no symptoms Respiratory: Reports: other - wheezing Cardiovascular: Reports: no symptoms Gastrointestinal/Abdominal: Reports: no symptoms Musculoskeletal: Reports: pain, other - back & neck Allergies: Coded Allergies: CHLORPROMAZINE (Unverified Allergy, Unknown, 05/24/18) CLOZAPINE (Unverified Allergy, Unknown, 05/24/18) DIVALPROEX SODIUM (Unverified Allergy, Unknown, 05/24/18) HALOPERIDOL (Unverified Allergy, Unknown, 05/24/18) SERTRALINE (Unverified Allergy, Unknown, 05/24/18) Uncoded Allergies: CLOZASIL (Allergy, Unknown, 07/23/18) Objective Vital Signs Last 24 Hour Vital Signs Date Time Temp Pulse Resp B/P (MAP) Pulse Ox O2 Delivery O2 Flow Rate FiO2 11/12/18 09:00 Nasal Cannula 2.0 11/12/18 08:33 75 18 98 Room Air 21 11/12/18 08:00 69 11/12/18 08:00 97.9 74 18 116/67 (83) 96 11/12/18 07:26 72 18 Room Air 21 11/12/18 04:00 74 11/12/18 04:00 98.7 98 18 100/61 (74) 95 11/11/18 23:49 94 18 98 Room Air 21 11/11/18 23:41 119 22 92 Room Air 21 11/11/18 21:00 Nasal Cannula 2.0 11/11/18 20:15 90 16 Room Air 21 11/11/18 20:00 115 11/11/18 20:00 98.7 98 18 100/61 (74) 95 11/11/18 16:00 95 11/11/18 16:00 97.7 95 20 123/74 (90) 95 11/11/18 14:20 113 22 93 Room Air 21 Height (Feet): 5 Height (Inches): 10.00 Weight (Pounds): 220 General Appearance: no acute distress HEENT: mucous membranes moist Respiratory/Chest: expiratory wheezing Cardiovascular: normal rate Abdomen: soft, non tender Extremities: no edema 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: alert, oriented x 3, responsive Microbiology Date/Time Source Procedure Growth Status 11/10/18 19:10 Blood Blood Culture - Preliminary NO GROWTH AFTER 24 HOURS Resulted 11/10/18 18:50 Blood Blood Culture - Preliminary NO GROWTH AFTER 24 HOURS Resulted 11/10/18 18:44 Nasal Nares Influenza Types A,B Antigen ([facility]) - Final Complete 11/10/18 21:34 Rectum - Preliminary Resulted 11/10/18 21:34 Rectum VRE Culture - Preliminary Resulted Current Medications Medications (Trade) Dose Ordered Sig/Cori Route PRN Reason Start Time Stop Time Status Last Admin Dose Admin Acetaminophen (Tylenol) 325 mg Q4H PRN ORAL Mild Pain/Temp > 100.5 11/11/18 00:30 12/11/18 00:29 Acetaminophen (Tylenol) 500 mg EVERY 4 HOURS PRN ORAL Moderate Pain (Pain Scale 4-6) 11/11/18 00:30 12/11/18 00:29 Acetaminophen/ Hydrocodone Bitart ([place] 5/325) 1 tab Q6H PRN ORAL Severe Pain (Pain Scale 7-10) 11/11/18 00:30 11/18/18 00:29 11/12/18 11:18 Albuterol Sulfate (Proventil) 2.5 mg Q4H PRN HHN Shortness of Breath 11/11/18 00:30 11/16/18 00:29 11/12/18 08:26 Azithromycin (Zithromax) 500 mg Q24H ORAL 11/11/18 20:00 11/18/18 19:59 11/11/18 20:33 Baclofen (Lioresal) 5 mg Q8HR PRN ORAL Muscle spasm 11/11/18 00:30 12/11/18 00:29 Bisacodyl (Dulcolax) 10 mg Q24HRS PRN RECTAL Constipation 11/11/18 00:30 12/11/18 00:29 Ceftriaxone Sodium 1 gm/ Dextrose 55 ml @ 110 mls/hr DAILY IVPB 11/11/18 12:00 11/18/18 11:59 11/12/18 08:36 Clonazepam (KlonoPIN) 2 mg TID ORAL 11/11/18 09:00 11/18/18 08:59 11/12/18 08:33 Docusate Sodium (Colace) 100 mg DAILY ORAL 11/11/18 09:00 12/11/18 08:59 11/12/18 08:33 Finasteride (Proscar) 5 mg DAILY ORAL 11/11/18 09:00 12/11/18 08:59 11/12/18 08:33 Folic Acid (Folate) 2 mg DAILY ORAL 11/11/18 09:00 12/11/18 08:59 11/12/18 08:32 Ibuprofen (Advil) 600 mg THREE TIMES A DAY ORAL 11/11/18 09:00 12/11/18 08:59 11/12/18 08:35 Levothyroxine Sodium (Synthroid) 100 mcg DAILY@0600 ORAL 11/11/18 06:00 12/11/18 05:59 11/12/18 06:42 Lorazepam (Ativan) 1 mg Q6HR PRN ORAL For Anxiety 11/11/18 00:30 11/18/18 00:29 11/12/18 00:29 Magnesium Hydroxide (Mom) 30 ml QHS PRN ORAL Constipation 11/11/18 00:30 12/11/18 00:29 Methylprednisolone Sodium Succinate (Solu-MEDROL) 40 mg EVERY 12 HOURS IVP 11/11/18 21:00 12/11/18 20:59 11/12/18 08:31 Montelukast Sodium (Singulair) 10 mg QPM ORAL 11/11/18 16:30 12/11/18 16:29 11/11/18 17:21 Multivitamins Therapeutic (Therapeutic Multivitamin) 1 ea DAILY ORAL 11/11/18 09:00 12/11/18 08:59 11/12/18 08:35 Olanzapine (ZyPREXA) 10 mg BID ORAL 11/11/18 09:00 12/11/18 08:59 11/12/18 08:33 Pantoprazole (Protonix) 40 mg BIAC ORAL 11/11/18 06:30 12/11/18 06:29 11/12/18 06:42 Salmeterol Xinafoate/ Fluticasone (Advair 100/50 Diskus) 1 puffs TWICE A DAY INH 11/11/18 09:00 12/11/18 08:59 Sodium Phosphate (Fleet's Sodium Phosl Enema) 133 ml Q24HRS PRN RECTAL Constipation 11/11/18 00:30 12/11/18 00:29 Tamsulosin HCl (Flomax) 0.4 mg BID ORAL 11/11/18 09:00 12/11/18 08:59 11/12/18 08:32 Topiramate (Topamax) 100 mg QHS ORAL 11/11/18 21:00 12/11/18 20:59 11/11/18 20:33 Trazodone HCl (Desyrel) 100 mg BEDTIME ORAL 11/11/18 21:00 12/11/18 20:59 11/11/18 20:33 Hank Diaz MD Nov 12, 2018 12:38
--- NOTE | 2018-11-12 14:59 | Consultation ---
Consult Note Consult Note asked to eval for elevated Cr 63-year-old male presents ED for evaluation. Patient brought in by EMS for reported chest pain and shortness of breath. Coming from [facility] facility. Patient states he's been having a cough and shortness of breath for the last 3 days. History of COPD. Cough is productive with yellowish phlegm. States he started to develop chest pain after. Midsternal, 5 out of 10, sharp, nonradiating. Worse with coughing. Denies fevers or chills. Given breathing treatments by EMS. No other aggravating relieving factors. Denies any other associated symptoms Coded Allergies: CHLORPROMAZINE (Unverified Allergy, Unknown, 05/24/18) CLOZAPINE (Unverified Allergy, Unknown, 05/24/18) DIVALPROEX SODIUM (Unverified Allergy, Unknown, 05/24/18) HALOPERIDOL (Unverified Allergy, Unknown, 05/24/18) SERTRALINE (Unverified Allergy, Unknown, 05/24/18) Uncoded Allergies: CLOZASIL (Allergy, Unknown, 07/23/18) Past Medical History: COPD, GERD, seizures, psych hx Past Medical History: No History, Except For Hx Asthma: Yes Hx COPD: Yes Hx Cancer: Yes Hx Gastrointestinal Problems: Yes - GERD, pancreatitis Hx Seizures: Yes Assessment/Plan Elevated Cr : CKD vs Acute COPD / Pneumonia Anemia Psych history HypoThyroidism DC Motrin Urine studies Avoid Nephrotoxics Keep BP and BS under control Taper steroids as possible Flomax check TSH Gamal Garcia MD Nov 12, 2018 14:59
--- NOTE | 2018-11-12 16:16 | NUR ---
CASE MANAGEMENT:REVIEW 11/12/18 SI: COPD. PNA. UTI 96.7 98 101 18 139/78 95% ON 2L IS: IV SOLUMEDROL Q12 AZITHROMYCIN PO Q24 IV ROCEPHIN Q24 SINGULAR PO QPM ADVAIR INH BID : TELEMETRY STATUS DCP: FROM [facility]
[2018-11-12] MEDS: Montelukast 10mg tablet ORAL SCH (17:21)
[2018-11-12 18:37] VITALS: BP 108/64
--- NOTE | 2018-11-12 19:30 | NUR ---
Received pt. and report from KAROLINE Dunaway. Observe pt. resting in bed. monitoring coordinator in placed, IV site intact, asymptomatic, and patent. Bed is in the lowest position and locked. Call light within reach. No acute distress noted at this time. Will continue plan of care.
--- NOTE | 2018-11-12 19:38 | NUR ---
HAND-OFF: Report given to KAROLINE Palacios. Patient in stable condition.
[2018-11-12 20:00] VITALS: BP 100/61
[2018-11-12] MEDS: Topiramate 100mg tab ORAL SCH (20:13)
[2018-11-12] MEDS: Azithromycin 250mg tab ORAL SCH (20:14)
[2018-11-12] MEDS: TraZODone 100mg tab ORAL SCH (20:14)
[2018-11-13] VITALS: BP 129/77
[2018-11-13 06:57] LABS: BASOPHILS % (AUTO) 0.7 % (0.0-2.0); EOSINOPHILS % (AUTO) 0.4 % (0.0-3.0); HEMATOCRIT 35.5 % (42.0-52.0); HEMOGLOBIN 11.8 G/DL (14.2-18.0); LYMPHOCYTES % (AUTO) 10.5 % (20.0-45.0); MEAN CORPUSCULAR VOLUME 91 FL (80-99); MONOCYTES % (AUTO) 5.6 % (1.0-10.0); NEUTROPHILS % (AUTO) 82.8 % (45.0-75.0); PLATELET COUNT 254 K/UL (150-450); RED BLOOD COUNT 3.88 M/UL (4.70-6.10); RED CELL DISTRIBUTION WIDTH 14.1 % (11.6-14.8); WHITE BLOOD COUNT 11.2 K/UL (4.8-10.8)
--- NOTE | 2018-11-13 07:20 | NUR ---
HAND-OFF: Report given to KAROLINE Del Valle. Plan of care endorsed.
[2018-11-13 07:23] LABS: ALANINE AMINOTRANSFERASE 27 U/L (12-78); ALBUMIN 3.5 G/DL (3.4-5.0); ALKALINE PHOSPHATASE 76 U/L (46-116); ANION GAP 9 mmol/L (5-15); ASPARTATE AMINO TRANSFERASE 18 U/L (15-37); BILIRUBIN,TOTAL 0.2 MG/DL (0.2-1.0); BLOOD UREA NITROGEN 27 mg/dL (7-18); CALCIUM 9.2 MG/DL (8.5-10.1); CARBON DIOXIDE 26 MMOL/L (21-32); CHLORIDE 110 MMOL/L (98-107); CHOLESTEROL 162 MG/DL (< 200); CREATINE KINASE 122 U/L (26-308); CREATININE 1.4 MG/DL (0.55-1.30); FERRITIN 28 NG/ML (8-388); GAMMA GLUTAMYL TRANSPEPTIDASE 26 U/L (5-85); HDL CHOLESTEROL 73 MG/DL (40-60); PHOSPHORUS 3.5 MG/DL (2.5-4.9); POTASSIUM 4.1 MMOL/L (3.5-5.1); SODIUM 145 MMOL/L (136-145); TRIGLYCERIDES 61 MG/DL (30-150)
--- NOTE | 2018-11-13 07:26 | NUR ---
NURSE NOTES: Report received from KAROLINE Palacios. Pt is resting in bed.Pt is awake, alert, and oriented x4. Pt is on 2 lit Nasal Cannula and breathing is even and unlabored. No signs and symptoms of acute distress at this time. Pt denies pain at this time. Bed is in lowest position with brake engaged, side rails up x2, and bed alarm on. Seizure percussion in place. Call light within reach. Will continue to monitor and follow plan of care.
[2018-11-13 08:00] VITALS: BP 129/89
[2018-11-13 08:09] LABS: % IRON SATURATION 14 % (15-50); IRON 41 ug/dL (50-175); TOTAL IRON BINDING CAPACITY 302 ug/dL (250-450)
[2018-11-13] MEDS: cefTRIAXone 1 GM in D5W 55 ML IVPB SCH (08:11)
[2018-11-13] MEDS: Solu-MEDROL 40mg Inj IVP SCH (08:11)
[2018-11-13] MEDS: Tamsulosin 0.4mg cap ORAL SCH ×2 (08:12→17:33)
[2018-11-13] MEDS: Docusate 100mg cap ORAL SCH ×3 (08:12→17:33)
[2018-11-13] MEDS: Multivitamin w/Minerals tab ORAL SCH (08:12)
[2018-11-13] MEDS: OLANZapine 10mg tab ORAL SCH ×2 (08:13→17:33)
[2018-11-13] MEDS: Advair 100/50 Inhaler - 14 dose INH SCH ×2 (09:30→20:00)
[2018-11-13] MEDS: LORazepam 1mg tab ORAL PRN (10:54)
--- NOTE | 2018-11-13 10:56 | Infectious Diseases Prog Note ---
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/ Asthma exacerbation CKD BPH Paranoid schizophrenia Hypothyroidism MRSA colonization P; Continue Rocephin & Zithromax Subjective ROS Limited/Unobtainable: No Constitutional: Reports: no symptoms, other - feels better Respiratory: Reports: shortness of breath, dry cough Cardiovascular: Reports: no symptoms Gastrointestinal/Abdominal: Reports: no symptoms Genitourinary: Reports: no symptoms Allergies: Coded Allergies: CHLORPROMAZINE (Unverified Allergy, Unknown, 05/24/18) CLOZAPINE (Unverified Allergy, Unknown, 05/24/18) DIVALPROEX SODIUM (Unverified Allergy, Unknown, 05/24/18) HALOPERIDOL (Unverified Allergy, Unknown, 05/24/18) SERTRALINE (Unverified Allergy, Unknown, 05/24/18) Uncoded Allergies: CLOZASIL (Allergy, Unknown, 07/23/18) Objective Vital Signs Last 24 Hour Vital Signs Date Time Temp Pulse Resp B/P (MAP) Pulse Ox O2 Delivery O2 Flow Rate FiO2 11/13/18 09:30 Room Air 11/13/18 09:30 Room Air 11/13/18 09:30 88 18 Room Air 21 11/13/18 08:00 96.9 74 18 129/89 (102) 97 11/13/18 04:00 65 11/13/18 00:00 81 11/13/18 00:00 97.6 81 18 129/77 (94) 96 11/12/18 21:00 Nasal Cannula 2.0 11/12/18 20:00 103 11/12/18 20:00 98.1 87 18 100/61 (74) 96 11/12/18 19:14 87 18 97 Room Air 21 11/12/18 19:14 88 18 96 Room Air 21 11/12/18 19:14 87 18 Room Air 21 11/12/18 18:37 97.5 87 18 108/64 (79) 96 11/12/18 16:00 108 11/12/18 12:00 101 11/12/18 12:00 96.7 98 18 139/78 (98) 95 Height (Feet): 5 Height (Inches): 10.00 Weight (Pounds): 220 HEENT: mucous membranes moist, other - poor dentitian Respiratory/Chest: expiratory wheezing Cardiovascular: normal rate Abdomen: soft, non tender Extremities: no edema 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: alert, responsive Microbiology Date/Time Source Procedure Growth Status 11/10/18 19:10 Blood Blood Culture - Preliminary NO GROWTH AFTER 48 HOURS Resulted 11/10/18 18:50 Blood Blood Culture - Preliminary NO GROWTH AFTER 48 HOURS Resulted 11/10/18 21:34 Nasal Nares MRSA Culture - Final Staphylococcus Aureus - Mrsa Complete 11/10/18 18:44 Nasal Nares Influenza Types A,B Antigen ([facility]) - Final Complete 11/10/18 21:34 Rectum - Final NO CARBAPENEM-RESISTANT ENTEROBACTERI... Complete 11/10/18 21:34 Rectum VRE Culture - Final NO VANCOMYCIN RESISTANT ENTEROCOCCUS ... Complete Laboratory Tests Test 11/12/18 16:00 11/13/18 05:55 C-Reactive Protein, Quantitative < 0.4 mg/dL (0.00-0.90) White Blood Count 11.2 K/UL (4.8-10.8) H Red Blood Count 3.88 M/UL (4.70-6.10) L Hemoglobin 11.8 G/DL (14.2-18.0) L Hematocrit 35.5 % (42.0-52.0) L Mean Corpuscular Volume 91 FL (80-99) Mean Corpuscular Hemoglobin 30.4 PG (27.0-31.0) Mean Corpuscular Hemoglobin Concent 33.3 G/DL (32.0-36.0) Red Cell Distribution Width 14.1 % (11.6-14.8) Platelet Count 254 K/UL (150-450) Mean Platelet Volume 5.4 FL (6.5-10.1) L Neutrophils (%) (Auto) 82.8 % (45.0-75.0) H Lymphocytes (%) (Auto) 10.5 % (20.0-45.0) L Monocytes (%) (Auto) 5.6 % (1.0-10.0) Eosinophils (%) (Auto) 0.4 % (0.0-3.0) Basophils (%) (Auto) 0.7 % (0.0-2.0) Sodium Level 145 MMOL/L (136-145) Potassium Level 4.1 MMOL/L (3.5-5.1) Chloride Level 110 MMOL/L (98-107) H Carbon Dioxide Level 26 MMOL/L (21-32) Anion Gap 9 mmol/L (5-15) Blood Urea Nitrogen 27 mg/dL (7-18) H Creatinine 1.4 MG/DL (0.55-1.30) H Estimat Glomerular Filtration Rate 51.5 mL/min (>60) Glucose Level 92 MG/DL (74-106) Hemoglobin A1c 5.0 % (4.3-6.0) Uric Acid 7.5 MG/DL (2.6-7.2) H Calcium Level 9.2 MG/DL (8.5-10.1) Phosphorus Level 3.5 MG/DL (2.5-4.9) Magnesium Level 1.9 MG/DL (1.8-2.4) Iron Level 41 ug/dL (50-175) L Total Iron Binding Capacity 302 ug/dL (250-450) Percent Iron Saturation 14 % (15-50) L Unsaturated Iron Binding 261 ug/dL (112-346) Ferritin 28 NG/ML (8-388) Total Bilirubin 0.2 MG/DL (0.2-1.0) Gamma Glutamyl Transpeptidase 26 U/L (5-85) Aspartate Amino Transf (AST/SGOT) 18 U/L (15-37) Alanine Aminotransferase (ALT/SGPT) 27 U/L (12-78) Alkaline Phosphatase 76 U/L (46-116) Total Creatine Kinase 122 U/L (26-308) Troponin I 0.017 ng/mL (0.000-0.056) Pro-B-Type Natriuretic Peptide 164 pg/mL (0-125) H Total Protein 7.0 G/DL (6.4-8.2) Albumin 3.5 G/DL (3.4-5.0) Globulin 3.5 g/dL Albumin/Globulin Ratio 1.0 (1.0-2.7) Triglycerides Level 61 MG/DL (30-150) Cholesterol Level 162 MG/DL (< 200) LDL Cholesterol 93 mg/dL (<100) HDL Cholesterol 73 MG/DL (40-60) H Cholesterol/HDL Ratio 2.2 (3.3-4.4) L Vitamin B12 Level 419 PG/ML (193-986) Folate 59.9 NG/ML (8.6-58.9) H Thyroid Stimulating Hormone (TSH) 0.600 uiU/mL (0.358-3.740) Current Medications Medications (Trade) Dose Ordered Sig/Cori Route PRN Reason Start Time Stop Time Status Last Admin Dose Admin Acetaminophen (Tylenol) 325 mg Q4H PRN ORAL Mild Pain/Temp > 100.5 11/11/18 00:30 12/11/18 00:29 Acetaminophen (Tylenol) 500 mg EVERY 4 HOURS PRN ORAL Moderate Pain (Pain Scale 4-6) 11/11/18 00:30 12/11/18 00:29 Acetaminophen/ Hydrocodone Bitart ([place] 5/325) 1 tab Q6H PRN ORAL Severe Pain (Pain Scale 7-10) 11/11/18 00:30 11/18/18 00:29 11/12/18 23:49 Albuterol Sulfate (Proventil) 2.5 mg Q4H PRN HHN Shortness of Breath 11/11/18 00:30 11/16/18 00:29 11/12/18 08:26 Azithromycin (Zithromax) 500 mg Q24H ORAL 11/11/18 20:00 11/18/18 19:59 11/12/18 20:14 Baclofen (Lioresal) 5 mg Q8HR PRN ORAL Muscle spasm 11/11/18 00:30 12/11/18 00:29 Bisacodyl (Dulcolax) 10 mg Q24HRS PRN RECTAL Constipation 11/11/18 00:30 12/11/18 00:29 Ceftriaxone Sodium 1 gm/ Dextrose 55 ml @ 110 mls/hr DAILY IVPB 11/11/18 12:00 11/18/18 11:59 11/13/18 08:11 Clonazepam (KlonoPIN) 2 mg TID ORAL 11/11/18 09:00 11/18/18 08:59 11/13/18 08:13 Docusate Sodium (Colace) 100 mg TID ORAL 11/12/18 18:00 12/11/18 08:59 11/13/18 08:12 Finasteride (Proscar) 5 mg DAILY ORAL 11/11/18 09:00 12/11/18 08:59 11/13/18 08:12 Folic Acid (Folate) 2 mg DAILY ORAL 11/11/18 09:00 12/11/18 08:59 11/13/18 08:12 Levothyroxine Sodium (Synthroid) 100 mcg DAILY@0600 ORAL 11/11/18 06:00 12/11/18 05:59 11/13/18 05:57 Lorazepam (Ativan) 1 mg Q6HR PRN ORAL For Anxiety 11/11/18 00:30 11/18/18 00:29 11/13/18 10:54 Magnesium Hydroxide (Mom) 30 ml QHS PRN ORAL Constipation 11/11/18 00:30 12/11/18 00:29 Methylprednisolone Sodium Succinate (Solu-MEDROL) 40 mg EVERY 12 HOURS IVP 11/11/18 21:00 12/11/18 20:59 11/13/18 08:11 Montelukast Sodium (Singulair) 10 mg QPM ORAL 11/11/18 16:30 12/11/18 16:29 11/12/18 17:21 Multivitamins Therapeutic (Therapeutic Multivitamin) 1 ea DAILY ORAL 11/11/18 09:00 12/11/18 08:59 11/13/18 08:12 Olanzapine (ZyPREXA) 10 mg BID ORAL 11/11/18 09:00 12/11/18 08:59 11/13/18 08:13 Pantoprazole (Protonix) 40 mg BIAC ORAL 11/11/18 06:30 12/11/18 06:29 11/13/18 05:57 Salmeterol Xinafoate/ Fluticasone (Advair 100/50 Diskus) 1 puffs TWICE A DAY INH 11/11/18 09:00 12/11/18 08:59 11/12/18 19:14 Sodium Phosphate (Fleet's Sodium Phosl Enema) 133 ml Q24HRS PRN RECTAL Constipation 11/11/18 00:30 12/11/18 00:29 Tamsulosin HCl (Flomax) 0.4 mg BID ORAL 11/11/18 09:00 12/11/18 08:59 11/13/18 08:12 Topiramate (Topamax) 100 mg QHS ORAL 11/11/18 21:00 12/11/18 20:59 11/12/18 20:13 Trazodone HCl (Desyrel) 100 mg BEDTIME ORAL 11/11/18 21:00 12/11/18 20:59 11/12/18 20:14 Hank Diaz MD Nov 13, 2018 10:56
[2018-11-13] MEDS: Norco 5mg/325mg tab ORAL PRN (11:35)
[2018-11-13 12:00] VITALS: BP 136/82
--- NOTE | 2018-11-13 13:28 | Nephrology Progress Note ---
Assessment/Plan Problem List: (1) Acute on chronic renal failure (2) Anemia (3) Hypothyroidism (4) COPD (chronic obstructive pulmonary disease) Assessment Elevated Cr : CKD vs Acute COPD / Pneumonia Anemia Psych history HypoThyroidism Plan Down on steroid IV DC folate- DC Motrin Urine studies Avoid Nephrotoxics Keep BP and BS under control Taper steroids as possible Flomax TSH low- down on synthroid IV Iron Objective Objective Last 24 Hour Vital Signs Date Time Temp Pulse Resp B/P (MAP) Pulse Ox O2 Delivery O2 Flow Rate FiO2 11/13/18 12:00 76 11/13/18 12:00 96.7 87 20 136/82 (100) 98 11/13/18 09:30 Room Air 11/13/18 09:30 Room Air 11/13/18 09:30 88 18 Room Air 21 11/13/18 09:00 Nasal Cannula 2.0 11/13/18 08:00 91 11/13/18 08:00 96.9 74 18 129/89 (102) 97 11/13/18 04:00 65 11/13/18 00:00 81 11/13/18 00:00 97.6 81 18 129/77 (94) 96 11/12/18 21:00 Nasal Cannula 2.0 11/12/18 20:00 103 11/12/18 20:00 98.1 87 18 100/61 (74) 96 11/12/18 19:14 87 18 97 Room Air 21 11/12/18 19:14 88 18 96 Room Air 21 11/12/18 19:14 87 18 Room Air 21 11/12/18 18:37 97.5 87 18 108/64 (79) 96 11/12/18 16:00 108 Intake and Output 11/12/18 11/13/18 18:59 06:59 Intake Total 240 ml Balance 240 ml Intake Oral 240 ml # Voids 6 1 Laboratory Tests 11/12/18 16:00: C-Reactive Protein, Quantitative < 0.4 11/13/18 05:55: White Blood Count 11.2H, Red Blood Count 3.88L, Hemoglobin 11.8L, Hematocrit 35.5L, Mean Corpuscular Volume 91, Mean Corpuscular Hemoglobin 30.4, Mean Corpuscular Hemoglobin Concent 33.3, Red Cell Distribution Width 14.1, Platelet Count 254, Mean Platelet Volume 5.4L, Neutrophils (%) (Auto) 82.8H, Lymphocytes (%) (Auto) 10.5L, Monocytes (%) (Auto) 5.6, Eosinophils (%) (Auto) 0.4, Basophils (%) (Auto) 0.7, Sodium Level 145, Potassium Level 4.1, Chloride Level 110H, Carbon Dioxide Level 26, Anion Gap 9, Blood Urea Nitrogen 27H, Creatinine 1.4H, Estimat Glomerular Filtration Rate 51.5, Glucose Level 92, Hemoglobin A1c 5.0, Uric Acid 7.5H, Calcium Level 9.2, Phosphorus Level 3.5, Magnesium Level 1.9, Iron Level 41L, Total Iron Binding Capacity 302, Percent Iron Saturation 14L, Unsaturated Iron Binding 261, Ferritin 28, Total Bilirubin 0.2, Gamma Glutamyl Transpeptidase 26, Aspartate Amino Transf (AST/SGOT) 18, Alanine Aminotransferase (ALT/SGPT) 27, Alkaline Phosphatase 76, Total Creatine Kinase 122, Troponin I 0.017, Pro-B-Type Natriuretic Peptide 164H, Total Protein 7.0, Albumin 3.5, Globulin 3.5, Albumin/Globulin Ratio 1.0, Triglycerides Level 61, Cholesterol Level 162, LDL Cholesterol 93, HDL Cholesterol 73H, Cholesterol/HDL Ratio 2.2L, Vitamin B12 Level 419, Folate 59.9H, Thyroid Stimulating Hormone ( TSH) 0.600 Height (Feet): 5 Height (Inches): 10.00 Weight (Pounds): 220 Gamal Garcia MD Nov 13, 2018 13:28
[2018-11-13] MEDS ORDERED: Iron Sucrose 200 MG in NS 110 ML IV ONE (15:00)
[2018-11-13 16:00] VITALS: BP 119/74
--- NOTE | 2018-11-13 17:00 | Pulmonology Progress Note ---
Assessment/Plan Assessment/Plan Pulmonary Progress Note REASON FOR CONSULTATION: Shortness of breath. HISTORY OF PRESENT ILLNESS: Elderly gentleman, brought in by [facility] from his facility with chest pain, shortness of breath. No reports of nausea, vomiting, or diarrhea. He has been having increased phlegm production, low-grade fevers, and hypoxemia for the last three days. He does have a history of COPD. He does still smoke tobacco. It is unclear when he last was treated for any kind of pulmonary or respiratory infection or COPD exacerbation. He has had tolerating p.o. No nausea, vomiting, or diarrhea. Chest pain has been sharp, nonradiating, and is exacerbated with coughing. Breathing treatments he finds are helpful. He denies any signs or symptoms of aspiration. PAST MEDICAL HISTORY: COPD, GERD, seizure, and underlying psychiatric history, CKD MEDICATIONS: Pre-hospital and current hospital medications reviewed, reconciled, and documented in the electronic medical record by dose, frequency, and route. ALLERGIES: Noted in the EMR. SOCIAL HISTORY: Positive for tobacco, alcohol, and drugs. Lives in a detention. FAMILY HISTORY: Positive for COPD, cancer, gastroesophageal reflux, and seizures. REVIEW OF SYSTEMS: Otherwise negative for chest pain, shortness of breath, nausea, diarrhea, fever. PHYSICAL EXAMINATION: GENERAL: At the time of my exam, he is alert, he is oriented. He is in no acute distress. He is currently afebrile. VITAL SIGNS NOTED HEENT: Normocephalic, atraumatic. Poor dentition is noted. Oropharynx is dry. Nasal mucosa is dry. LUNGS: Bilateral rhonchi. No wheezes. HEART: Regular rate and rhythm without murmur. ABDOMEN: Soft, nontender. Positive bowel sounds. EXTREMITIES: No edema. SKIN: No rashes or lesions are documented in the nursing notes in the EMR. NEUROLOGIC: No focal neurologic deficits. Cranial nerves are intact. LABORATORY AND DIAGNOSTIC DATA NOTED Chest x-ray bibasilar infiltrates, but prior report is not obtained. ASSESSMENT AND PLAN: 1. Chronic obstructive pulmonary disease exacerbation. 2. Respiratory insufficiency. 3. Gastroesophageal reflux disease. 4. Current tobacco use. 5. Hypoxemia. 6, CKD with Acute exaccerbation PLAN: Plan for the patient, continue antibiotics, nebulizers, and steroids as ordered. Follow up chest x-ray in one to two days. DVT prophylaxis, aspiration precautions, O2 to maintain saturations greater than 92%. Possible need for swallow evaluation with poor dentition and high risk of aspiration, and we will continue to follow the patient for the remainder of his hospital stay. Subjective ROS Limited/Unobtainable: No Allergies: Coded Allergies: CHLORPROMAZINE (Unverified Allergy, Unknown, 05/24/18) CLOZAPINE (Unverified Allergy, Unknown, 05/24/18) DIVALPROEX SODIUM (Unverified Allergy, Unknown, 05/24/18) HALOPERIDOL (Unverified Allergy, Unknown, 05/24/18) SERTRALINE (Unverified Allergy, Unknown, 05/24/18) Uncoded Allergies: CLOZASIL (Allergy, Unknown, 07/23/18) Objective Last 24 Hour Vital Signs Date Time Temp Pulse Resp B/P (MAP) Pulse Ox O2 Delivery O2 Flow Rate FiO2 11/13/18 12:00 76 11/13/18 12:00 96.7 87 20 136/82 (100) 98 11/13/18 09:30 Room Air 11/13/18 09:30 Room Air 11/13/18 09:30 88 18 Room Air 21 11/13/18 09:00 Nasal Cannula 2.0 11/13/18 08:00 91 11/13/18 08:00 96.9 74 18 129/89 (102) 97 11/13/18 04:00 65 11/13/18 00:00 81 11/13/18 00:00 97.6 81 18 129/77 (94) 96 11/12/18 21:00 Nasal Cannula 2.0 11/12/18 20:00 103 11/12/18 20:00 98.1 87 18 100/61 (74) 96 11/12/18 19:14 87 18 97 Room Air 21 11/12/18 19:14 88 18 96 Room Air 21 11/12/18 19:14 87 18 Room Air 21 11/12/18 18:37 97.5 87 18 108/64 (79) 96 Intake and Output 11/12/18 11/13/18 19:00 07:00 Intake Total 240 ml Balance 240 ml Intake Oral 240 ml # Voids 6 1 Microbiology Date/Time Source Procedure Growth Status 11/10/18 19:10 Blood Blood Culture - Preliminary NO GROWTH AFTER 48 HOURS Resulted 11/10/18 18:50 Blood Blood Culture - Preliminary NO GROWTH AFTER 48 HOURS Resulted 11/10/18 21:34 Nasal Nares MRSA Culture - Final Staphylococcus Aureus - Mrsa Complete 11/10/18 18:44 Nasal Nares Influenza Types A,B Antigen ([facility]) - Final Complete 11/10/18 21:34 Rectum - Final NO CARBAPENEM-RESISTANT ENTEROBACTERI... Complete 11/10/18 21:34 Rectum VRE Culture - Final NO VANCOMYCIN RESISTANT ENTEROCOCCUS ... Complete Laboratory Tests 11/13/18 05:55: White Blood Count 11.2H, Red Blood Count 3.88L, Hemoglobin 11.8L, Hematocrit 35.5L, Mean Corpuscular Volume 91, Mean Corpuscular Hemoglobin 30.4, Mean Corpuscular Hemoglobin Concent 33.3, Red Cell Distribution Width 14.1, Platelet Count 254, Mean Platelet Volume 5.4L, Neutrophils (%) (Auto) 82.8H, Lymphocytes (%) (Auto) 10.5L, Monocytes (%) (Auto) 5.6, Eosinophils (%) (Auto) 0.4, Basophils (%) (Auto) 0.7, Sodium Level 145, Potassium Level 4.1, Chloride Level 110H, Carbon Dioxide Level 26, Anion Gap 9, Blood Urea Nitrogen 27H, Creatinine 1.4H, Estimat Glomerular Filtration Rate 51.5, Glucose Level 92, Hemoglobin A1c 5.0, Uric Acid 7.5H, Calcium Level 9.2, Phosphorus Level 3.5, Magnesium Level 1.9, Iron Level 41L, Total Iron Binding Capacity 302, Percent Iron Saturation 14L, Unsaturated Iron Binding 261, Ferritin 28, Total Bilirubin 0.2, Gamma Glutamyl Transpeptidase 26, Aspartate Amino Transf (AST/SGOT) 18, Alanine Aminotransferase (ALT/SGPT) 27, Alkaline Phosphatase 76, Total Creatine Kinase 122, Troponin I 0.017, Pro-B-Type Natriuretic Peptide 164H, Total Protein 7.0, Albumin 3.5, Globulin 3.5, Albumin/Globulin Ratio 1.0, Triglycerides Level 61, Cholesterol Level 162, LDL Cholesterol 93, HDL Cholesterol 73H, Cholesterol/HDL Ratio 2.2L, Vitamin B12 Level 419, Folate 59.9H, Thyroid Stimulating Hormone ( TSH) 0.600 Current Medications Medications (Trade) Dose Ordered Sig/Cori Route PRN Reason Start Time Stop Time Status Last Admin Dose Admin Acetaminophen (Tylenol) 325 mg Q4H PRN ORAL Mild Pain/Temp > 100.5 11/11/18 00:30 12/11/18 00:29 Acetaminophen (Tylenol) 500 mg EVERY 4 HOURS PRN ORAL Moderate Pain (Pain Scale 4-6) 11/11/18 00:30 12/11/18 00:29 Acetaminophen/ Hydrocodone Bitart ([place] 5/325) 1 tab Q6H PRN ORAL Severe Pain (Pain Scale 7-10) 11/11/18 00:30 11/18/18 00:29 11/13/18 11:35 Albuterol Sulfate (Proventil) 2.5 mg Q4H PRN HHN Shortness of Breath 11/11/18 00:30 11/16/18 00:29 11/12/18 08:26 Azithromycin (Zithromax) 500 mg Q24H ORAL 11/11/18 20:00 11/18/18 19:59 11/12/18 20:14 Baclofen (Lioresal) 5 mg Q8HR PRN ORAL Muscle spasm 11/11/18 00:30 12/11/18 00:29 Bisacodyl (Dulcolax) 10 mg Q24HRS PRN RECTAL Constipation 11/11/18 00:30 12/11/18 00:29 Ceftriaxone Sodium 1 gm/ Dextrose 55 ml @ 110 mls/hr DAILY IVPB 11/11/18 12:00 11/18/18 11:59 11/13/18 08:11 Clonazepam (KlonoPIN) 2 mg TID ORAL 11/11/18 09:00 11/18/18 08:59 11/13/18 13:22 Docusate Sodium (Colace) 100 mg TID ORAL 11/12/18 18:00 12/11/18 08:59 11/13/18 13:22 Finasteride (Proscar) 5 mg DAILY ORAL 11/11/18 09:00 12/11/18 08:59 11/13/18 08:12 Levothyroxine Sodium (Synthroid) 50 mcg DAILY@0600 ORAL 11/14/18 06:00 12/11/18 05:59 Lorazepam (Ativan) 1 mg Q6HR PRN ORAL For Anxiety 11/11/18 00:30 11/18/18 00:29 11/13/18 10:54 Magnesium Hydroxide (Mom) 30 ml QHS PRN ORAL Constipation 11/11/18 00:30 12/11/18 00:29 Methylprednisolone Sodium Succinate (Solu-MEDROL) 40 mg DAILY IVP 11/14/18 09:00 12/11/18 20:59 Montelukast Sodium (Singulair) 10 mg QPM ORAL 11/11/18 16:30 12/11/18 16:29 11/12/18 17:21 Multivitamins Therapeutic (Therapeutic Multivitamin) 1 ea DAILY ORAL 11/11/18 09:00 12/11/18 08:59 11/13/18 08:12 Olanzapine (ZyPREXA) 10 mg BID ORAL 11/11/18 09:00 12/11/18 08:59 11/13/18 08:13 Pantoprazole (Protonix) 40 mg BIAC ORAL 11/11/18 06:30 12/11/18 06:29 11/13/18 05:57 Salmeterol Xinafoate/ Fluticasone (Advair 100/50 Diskus) 1 puffs TWICE A DAY INH 11/11/18 09:00 12/11/18 08:59 11/12/18 19:14 Sodium Phosphate (Fleet's Sodium Phosl Enema) 133 ml Q24HRS PRN RECTAL Constipation 11/11/18 00:30 12/11/18 00:29 Tamsulosin HCl (Flomax) 0.4 mg BID ORAL 11/11/18 09:00 12/11/18 08:59 11/13/18 08:12 Topiramate (Topamax) 100 mg QHS ORAL 11/11/18 21:00 12/11/18 20:59 11/12/18 20:13 Trazodone HCl (Desyrel) 100 mg BEDTIME ORAL 11/11/18 21:00 12/11/18 20:59 11/12/18 20:14 Humberto Marquez MD Nov 13, 2018 17:00
[2018-11-13] MEDS: Montelukast 10mg tablet ORAL SCH (17:33)
[2018-11-13 18:30] VITALS: BP 119/75
--- NOTE | 2018-11-13 18:40 | NUR ---
TRANSFER TO FLOOR: Patient transferred to Med- Surg, per Dr. Garcia's order. Report given to KAROLINE Ribera. Belongings and medications given to assigned RN. Patient tranferred in stable condition.
--- NOTE | 2018-11-13 18:53 | NUR ---
NURSE NOTES: Patient arrived to the floor around 183; received report from KAROLINE Del Valle; vital taken upon arrival to the floor. T 97.2 P 75 BP 119/75 sat 98%. Patient alert x4; skin intact and right ear redness and patient asks to be coved; there is an order for Nasal cannula 2 mL PRN, according to the report patient refuses most of the time. Belonging list signed by transferring and receiving nurse; patient has money at the safe box, receipt on chart; IV Left forearm, patent and flushes well. Patient ambulate to the rest room. Bed at lowest position; side rais padded for seizure percussion and breaks engaged. Call ight within reach; will keep monitoring.
[2018-11-13] MEDS ORDERED: Acetaminophen 500mg (ES) tab ORAL PRN (19:30)
[2018-11-13] MEDS ORDERED: Albuterol ud Inhalation HHN PRN (19:30)
--- NOTE | 2018-11-13 19:44 | NUR ---
HAND-OFF: Report given to KAROLINE Su.
[2018-11-13 20:00] VITALS: BP 115/75
--- NOTE | 2018-11-13 20:30 | NUR ---
NURSE NOTES: Patient in bed, awake, alert, makes needs known. No complaints of pain at this time. No s/s respiratory distress noted. Bed in lowest position, call light within reach. Will continue to monitor.
[2018-11-13] MEDS: Azithromycin 250mg tab ORAL SCH (20:54)
[2018-11-13] MEDS: Topiramate 100mg tab ORAL SCH (20:55)
[2018-11-13] MEDS: TraZODone 100mg tab ORAL SCH (20:55)
[2018-11-13] MEDS ORDERED: Milk of Magnesia 30ml Ud ORAL PRN (21:00)
--- NOTE | 2018-11-13 22:15 | General Progress Note ---
Assessment/Plan Problem List: (1) Abdominal bloating ICD Codes: R14.0 - Abdominal distension (gaseous) SNOMED: 509458962 (2) UTI (urinary tract infection) ICD Codes: N39.0 - Urinary tract infection, site not specified SNOMED: 37737260 (3) Anemia ICD Codes: D64.9 - Anemia, unspecified SNOMED: 301718338 (4) COPD (chronic obstructive pulmonary disease) ICD Codes: J44.9 - Chronic obstructive pulmonary disease, unspecified SNOMED: 74151592 Qualifiers: Qualified Codes: J44.9 - Chronic obstructive pulmonary disease, unspecified (5) Pneumonia ICD Codes: J18.9 - Pneumonia, unspecified organism SNOMED: 441387283 Qualifiers: Qualified Codes: J18.1 - Lobar pneumonia, unspecified organism (6) Acute on chronic renal failure ICD Codes: N17.9 - Acute kidney failure, unspecified; N18.9 - Chronic kidney disease, unspecified SNOMED: 647228291 Qualifiers: Qualified Codes: N17.9 - Acute kidney failure, unspecified; N18.9 - Chronic kidney disease, unspecified Status: stable Assessment/Plan atypical cp neg trop copd no wheezing afebrile Subjective ROS Limited/Unobtainable: Yes Allergies: Coded Allergies: CHLORPROMAZINE (Unverified Allergy, Unknown, 05/24/18) CLOZAPINE (Unverified Allergy, Unknown, 05/24/18) DIVALPROEX SODIUM (Unverified Allergy, Unknown, 05/24/18) HALOPERIDOL (Unverified Allergy, Unknown, 05/24/18) SERTRALINE (Unverified Allergy, Unknown, 05/24/18) Uncoded Allergies: CLOZASIL (Allergy, Unknown, 07/23/18) Objective Last 24 Hour Vital Signs Date Time Temp Pulse Resp B/P (MAP) Pulse Ox O2 Delivery O2 Flow Rate FiO2 11/13/18 20:37 81 20 Room Air 11/13/18 20:36 Room Air 11/13/18 20:36 Room Air 11/13/18 18:30 97.2 75 18 119/75 (90) 98 11/13/18 16:00 74 11/13/18 16:00 98.1 79 20 119/74 (89) 97 11/13/18 12:00 76 11/13/18 12:00 96.7 87 20 136/82 (100) 98 11/13/18 09:30 Room Air 11/13/18 09:30 Room Air 11/13/18 09:30 88 18 Room Air 21 11/13/18 09:00 Nasal Cannula 2.0 11/13/18 08:00 91 11/13/18 08:00 96.9 74 18 129/89 (102) 97 11/13/18 04:00 65 11/13/18 00:00 81 11/13/18 00:00 97.6 81 18 129/77 (94) 96 Intake and Output 11/12/18 11/13/18 19:00 07:00 Intake Total 240 ml Balance 240 ml Intake Oral 240 ml # Voids 6 1 Laboratory Tests 11/13/18 05:55: White Blood Count 11.2H, Red Blood Count 3.88L, Hemoglobin 11.8L, Hematocrit 35.5L, Mean Corpuscular Volume 91, Mean Corpuscular Hemoglobin 30.4, Mean Corpuscular Hemoglobin Concent 33.3, Red Cell Distribution Width 14.1, Platelet Count 254, Mean Platelet Volume 5.4L, Neutrophils (%) (Auto) 82.8H, Lymphocytes (%) (Auto) 10.5L, Monocytes (%) (Auto) 5.6, Eosinophils (%) (Auto) 0.4, Basophils (%) (Auto) 0.7, Sodium Level 145, Potassium Level 4.1, Chloride Level 110H, Carbon Dioxide Level 26, Anion Gap 9, Blood Urea Nitrogen 27H, Creatinine 1.4H, Estimat Glomerular Filtration Rate 51.5, Glucose Level 92, Hemoglobin A1c 5.0, Uric Acid 7.5H, Calcium Level 9.2, Phosphorus Level 3.5, Magnesium Level 1.9, Iron Level 41L, Total Iron Binding Capacity 302, Percent Iron Saturation 14L, Unsaturated Iron Binding 261, Ferritin 28, Total Bilirubin 0.2, Gamma Glutamyl Transpeptidase 26, Aspartate Amino Transf (AST/SGOT) 18, Alanine Aminotransferase (ALT/SGPT) 27, Alkaline Phosphatase 76, Total Creatine Kinase 122, Troponin I 0.017, Pro-B-Type Natriuretic Peptide 164H, Total Protein 7.0, Albumin 3.5, Globulin 3.5, Albumin/Globulin Ratio 1.0, Triglycerides Level 61, Cholesterol Level 162, LDL Cholesterol 93, HDL Cholesterol 73H, Cholesterol/HDL Ratio 2.2L, Vitamin B12 Level 419, Folate 59.9H, Thyroid Stimulating Hormone ( TSH) 0.600 Height (Feet): 5 Height (Inches): 10.00 Weight (Pounds): 220 Cardiovascular: normal rate Respiratory/Chest: lungs clear Abdomen: soft Yrn Zamudio MD Nov 13, 2018 22:15
[2018-11-14] VITALS: BP 122/74
[2018-11-14] MEDS ORDERED: Fleet's Enema 133ml RECTAL PRN (00:30)
[2018-11-14] MEDS: LORazepam 1mg tab ORAL PRN ×4 (00:40→23:46)
[2018-11-14] MEDS: Norco 5mg/325mg tab ORAL PRN ×4 (00:40→23:47)
[2018-11-14 04:40] VITALS: BP 105/65
--- NOTE | 2018-11-14 06:18 | NUR ---
NURSE NOTES: Patient tolerated medications, no complaints, no distress.
--- NOTE | 2018-11-14 07:24 | NUR ---
HAND-OFF: Report given to NEHEMIAS MCKEON RN.
--- NOTE | 2018-11-14 07:43 | NUR ---
NURSE NOTES: Patient alert x4; in room air, no sign of distress and shortness of breath; skin- right ear redness; IV left for-arm, patent and salen lock, side rails up x2; bed at lowest position; patient ambulatory to the rest room; call light within reach, will keep monitoring.
[2018-11-14 08:00] VITALS: BP 141/54
[2018-11-14] MEDS: cefTRIAXone 1 GM in D5W 55 ML IVPB SCH ×2 (09:00→09:47)
[2018-11-14] MEDS ORDERED: Solu-MEDROL 40mg Inj IVP SCH ×2 (09:00)
[2018-11-14] MEDS: Advair 100/50 Inhaler - 14 dose INH SCH ×2 (09:30→20:20)
--- NOTE | 2018-11-14 09:31 | Diagnostic Imaging Report ---
Indication: Dyspnea Comparison: 11/10/2018 A single view chest radiograph was obtained. Findings: The lungs are clear. Heart size is borderline. Old rib fractures on the right noted. IMPRESSION: No acute disease
--- NOTE | 2018-11-14 09:36 | Pulmonology Progress Note ---
Assessment/Plan Problems: (1) COPD exacerbation (2) COPD (chronic obstructive pulmonary disease) (3) Acute on chronic renal failure (4) Anemia (5) Psychosis Assessment/Plan Optimize pulmonary hygiene/mobilize as tolerated PRN o2 Continue Advair and Singulair for the time being RTC and PRN DUOnebs D/C SM, start Pred 40 and taper Abx (CTx/Azithro) per ID Monitor volumes and renal function Tobacco cessation discussed at length NEEDS AN OUTPATIENT PULMONARY EVALUATION (PFT, screening CT chest) and optimization of inhaler regimen (stated hx of COPD but Advair and singulair suggestive of asthma and not optimal COPD therapy) Subjective Allergies: Coded Allergies: CHLORPROMAZINE (Unverified Allergy, Unknown, 05/24/18) CLOZAPINE (Unverified Allergy, Unknown, 05/24/18) DIVALPROEX SODIUM (Unverified Allergy, Unknown, 05/24/18) HALOPERIDOL (Unverified Allergy, Unknown, 05/24/18) SERTRALINE (Unverified Allergy, Unknown, 05/24/18) Uncoded Allergies: CLOZASIL (Allergy, Unknown, 07/23/18) Subjective AFVSS, O2 needs stable Less SOB, less cough ,no wheezing, no FC, no CP Objective Last 24 Hour Vital Signs Date Time Temp Pulse Resp B/P (MAP) Pulse Ox O2 Delivery O2 Flow Rate FiO2 11/14/18 04:40 97.7 64 18 105/65 (78) 98 11/14/18 01:10 97.3 11/14/18 00:00 97.7 74 18 122/74 (90) 95 11/13/18 22:18 Room Air 11/13/18 20:37 81 20 Room Air 11/13/18 20:36 Room Air 11/13/18 20:36 Room Air 11/13/18 20:00 97.3 75 18 115/75 (88) 96 11/13/18 18:30 97.2 75 18 119/75 (90) 98 11/13/18 16:00 74 11/13/18 16:00 98.1 79 20 119/74 (89) 97 11/13/18 12:00 76 11/13/18 12:00 96.7 87 20 136/82 (100) 98 Intake and Output 11/13/18 11/14/18 19:00 07:00 Intake Total 1240 ml 240 ml Output Total 800 ml Balance 440 ml 240 ml Intake Oral 1240 ml 240 ml Output Urine Total 800 ml # Voids 2 3 General Appearance: no acute distress, cachetic HEENT: normocephalic, atraumatic, anicteric, mucous membranes moist Respiratory/Chest: chest wall non-tender, lungs clear - but distant Cardiovascular: normal peripheral pulses, normal rate, regular rhythm Abdomen: normal bowel sounds, soft, non tender, no organomegaly, non distended , no mass Extremities: no cyanosis, no clubbing, no edema Current Medications Medications (Trade) Dose Ordered Sig/Cori Route PRN Reason Start Time Stop Time Status Last Admin Dose Admin Acetaminophen (Tylenol) 325 mg Q4H PRN ORAL Mild Pain/Temp > 100.5 11/13/18 19:30 12/11/18 19:29 Acetaminophen (Tylenol) 500 mg Q4H PRN ORAL Moderate Pain (Pain Scale 4-6) 11/13/18 19:30 12/13/18 19:29 Acetaminophen/ Hydrocodone Bitart ([place] 5/325) 1 tab Q6H PRN ORAL Severe Pain (Pain Scale 7-10) 11/13/18 19:30 11/20/18 19:29 11/14/18 00:40 Albuterol Sulfate (Proventil) 2.5 mg Q4H PRN HHN Shortness of Breath 11/13/18 19:30 11/16/18 19:29 Azithromycin (Zithromax) 500 mg Q24H ORAL 11/13/18 20:00 11/18/18 19:59 11/13/18 20:54 Baclofen (Lioresal) 5 mg Q8H PRN ORAL Muscle spasm 11/13/18 22:00 12/13/18 21:59 Bisacodyl (Dulcolax) 10 mg Q24H PRN RECTAL Constipation 11/13/18 19:30 12/13/18 19:29 Ceftriaxone Sodium 1 gm/ Dextrose 55 ml @ 110 mls/hr DAILY IVPB 11/14/18 09:00 11/18/18 11:59 Clonazepam (KlonoPIN) 2 mg TID ORAL 11/14/18 09:00 11/18/18 08:59 Docusate Sodium (Colace) 100 mg TID ORAL 11/14/18 09:00 12/11/18 08:59 Finasteride (Proscar) 5 mg DAILY ORAL 11/14/18 09:00 12/11/18 08:59 Levothyroxine Sodium (Synthroid) 50 mcg ACBREAKFAST ORAL 11/14/18 06:30 12/14/18 06:29 11/14/18 05:40 Lorazepam (Ativan) 1 mg Q6H PRN ORAL For Anxiety 11/13/18 19:30 11/20/18 19:29 11/14/18 00:40 Magnesium Hydroxide (Mom) 30 ml HSPRN PRN ORAL Constipation 11/13/18 21:00 12/13/18 20:59 Methylprednisolone Sodium Succinate (Solu-MEDROL) 40 mg DAILY IVP 11/14/18 09:00 12/11/18 20:59 Montelukast Sodium (Singulair) 10 mg QPM ORAL 11/14/18 16:30 12/11/18 16:29 Multivitamins Therapeutic (Therapeutic Multivitamin) 1 ea DAILY ORAL 11/14/18 09:00 12/11/18 08:59 Olanzapine (ZyPREXA) 10 mg BID ORAL 11/14/18 09:00 12/11/18 08:59 Pantoprazole (Protonix) 40 mg BIAC ORAL 11/14/18 06:30 12/11/18 06:29 11/14/18 05:40 Salmeterol Xinafoate/ Fluticasone (Advair 100/50 Diskus) 1 puffs BID INH 11/13/18 20:00 12/13/18 19:59 Sodium Phosphate (Fleet's Sodium Phosl Enema) 133 ml Q24H PRN RECTAL Constipation 11/14/18 00:30 12/14/18 00:29 Tamsulosin HCl (Flomax) 0.4 mg BID ORAL 11/14/18 09:00 12/11/18 08:59 Topiramate (Topamax) 100 mg QHS ORAL 11/13/18 21:00 12/11/18 20:59 11/13/18 20:55 Trazodone HCl (Desyrel) 100 mg BEDTIME ORAL 11/13/18 21:00 12/11/18 20:59 11/13/18 20:55 Jan Caraballo MD Nov 14, 2018 09:36
[2018-11-14] MEDS ORDERED: Albuterol/Ipratropium 3ml neb HHN PRN (09:39)
[2018-11-14] MEDS: Tamsulosin 0.4mg cap ORAL SCH ×2 (09:44→16:59)
[2018-11-14] MEDS: OLANZapine 10mg tab ORAL SCH ×2 (09:45→16:59)
[2018-11-14] MEDS: Docusate 100mg cap ORAL SCH ×3 (09:46→16:59)
[2018-11-14] MEDS: Multivitamin w/Minerals tab ORAL SCH (09:46)
[2018-11-14 12:00] VITALS: BP 129/75
--- NOTE | 2018-11-14 12:47 | Infectious Diseases Prog Note ---
Assessment/Plan Assessment/Plan A: COPD/ Asthma exacerbation CKD BPH Paranoid schizophrenia Hypothyroidism MRSA colonization P; Continue Rocephin & Zithromax X 1 day Subjective ROS Limited/Unobtainable: No Constitutional: Reports: no symptoms Respiratory: Reports: other - wheezing Cardiovascular: Reports: no symptoms Genitourinary: Reports: no symptoms Skin: Reports: ulcer, other - right ear Allergies: Coded Allergies: CHLORPROMAZINE (Unverified Allergy, Unknown, 05/24/18) CLOZAPINE (Unverified Allergy, Unknown, 05/24/18) DIVALPROEX SODIUM (Unverified Allergy, Unknown, 05/24/18) HALOPERIDOL (Unverified Allergy, Unknown, 05/24/18) SERTRALINE (Unverified Allergy, Unknown, 05/24/18) Uncoded Allergies: CLOZASIL (Allergy, Unknown, 07/23/18) Objective Vital Signs Last 24 Hour Vital Signs Date Time Temp Pulse Resp B/P (MAP) Pulse Ox O2 Delivery O2 Flow Rate FiO2 11/14/18 12:00 97.2 90 19 129/75 (93) 98 11/14/18 10:27 97.0 11/14/18 09:51 Room Air 11/14/18 09:51 Room Air 11/14/18 09:00 Room Air 11/14/18 08:00 97.0 79 20 141/54 (83) 97 11/14/18 04:40 97.7 64 18 105/65 (78) 98 11/14/18 00:00 97.7 74 18 122/74 (90) 95 11/13/18 22:18 Room Air 11/13/18 20:37 81 20 Room Air 11/13/18 20:36 Room Air 11/13/18 20:36 Room Air 11/13/18 20:00 97.3 75 18 115/75 (88) 96 11/13/18 18:30 97.2 75 18 119/75 (90) 98 11/13/18 16:00 74 11/13/18 16:00 98.1 79 20 119/74 (89) 97 Height (Feet): 5 Height (Inches): 10.00 Weight (Pounds): 186 General Appearance: no acute distress HEENT: mucous membranes moist Respiratory/Chest: lungs clear Cardiovascular: normal rate Abdomen: soft, non tender Extremities: no edema Skin: other - pressure ulcer right ear 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: alert, responsive Current Medications Medications (Trade) Dose Ordered Sig/Cori Route PRN Reason Start Time Stop Time Status Last Admin Dose Admin Acetaminophen (Tylenol) 325 mg Q4H PRN ORAL Mild Pain/Temp > 100.5 11/13/18 19:30 12/11/18 19:29 Acetaminophen (Tylenol) 500 mg Q4H PRN ORAL Moderate Pain (Pain Scale 4-6) 11/13/18 19:30 12/13/18 19:29 Acetaminophen/ Hydrocodone Bitart ([place] 5/325) 1 tab Q6H PRN ORAL Severe Pain (Pain Scale 7-10) 11/13/18 19:30 11/20/18 19:29 11/14/18 09:57 Albuterol/ Ipratropium (Albuterol/ Ipratropium) 3 ml Q4H PRN HHN Shortness of Breath 11/14/18 09:39 11/19/18 09:38 Albuterol/ Ipratropium (Albuterol/ Ipratropium) 3 ml Q6HRT HHN 11/14/18 13:00 11/19/18 12:59 Azithromycin (Zithromax) 500 mg Q24H ORAL 11/13/18 20:00 11/18/18 19:59 11/13/18 20:54 Baclofen (Lioresal) 5 mg Q8H PRN ORAL Muscle spasm 11/13/18 22:00 12/13/18 21:59 Bisacodyl (Dulcolax) 10 mg Q24H PRN RECTAL Constipation 11/13/18 19:30 12/13/18 19:29 Ceftriaxone Sodium 1 gm/ Dextrose 55 ml @ 110 mls/hr DAILY IVPB 11/14/18 09:00 11/18/18 11:59 11/14/18 09:00 Clonazepam (KlonoPIN) 2 mg TID ORAL 11/14/18 09:00 11/18/18 08:59 11/14/18 12:06 Docusate Sodium (Colace) 100 mg TID ORAL 11/14/18 09:00 12/11/18 08:59 11/14/18 12:06 Finasteride (Proscar) 5 mg DAILY ORAL 11/14/18 09:00 12/11/18 08:59 11/14/18 09:45 Levothyroxine Sodium (Synthroid) 50 mcg ACBREAKFAST ORAL 11/14/18 06:30 12/14/18 06:29 11/14/18 05:40 Lorazepam (Ativan) 1 mg Q6H PRN ORAL For Anxiety 11/13/18 19:30 11/20/18 19:29 11/14/18 09:57 Magnesium Hydroxide (Mom) 30 ml HSPRN PRN ORAL Constipation 11/13/18 21:00 12/13/18 20:59 Montelukast Sodium (Singulair) 10 mg QPM ORAL 11/14/18 16:30 12/11/18 16:29 Multivitamins Therapeutic (Therapeutic Multivitamin) 1 ea DAILY ORAL 11/14/18 09:00 12/11/18 08:59 11/14/18 09:46 Olanzapine (ZyPREXA) 10 mg BID ORAL 11/14/18 09:00 12/11/18 08:59 11/14/18 09:45 Pantoprazole (Protonix) 40 mg BIAC ORAL 11/14/18 06:30 12/11/18 06:29 11/14/18 05:40 Prednisone (predniSONE) 40 mg DAILY ORAL 11/15/18 09:00 12/15/18 08:59 Salmeterol Xinafoate/ Fluticasone (Advair 100/50 Diskus) 1 puffs BID INH 11/13/18 20:00 12/13/18 19:59 Sodium Phosphate (Fleet's Sodium Phosl Enema) 133 ml Q24H PRN RECTAL Constipation 11/14/18 00:30 12/14/18 00:29 Tamsulosin HCl (Flomax) 0.4 mg BID ORAL 11/14/18 09:00 12/11/18 08:59 11/14/18 09:44 Topiramate (Topamax) 100 mg QHS ORAL 11/13/18 21:00 12/11/18 20:59 11/13/18 20:55 Trazodone HCl (Desyrel) 100 mg BEDTIME ORAL 11/13/18 21:00 12/11/18 20:59 11/13/18 20:55 Hank Diaz MD Nov 14, 2018 12:47
[2018-11-14] MEDS: Albuterol/Ipratropium 3ml neb HHN SCH ×2 (13:00→20:24)
--- NOTE | 2018-11-14 13:56 | NUR ---
RADIOLOGY DEPT CHEST X-RAY DONE.-P.DYE
[2018-11-14 16:00] VITALS: BP 123/83
--- NOTE | 2018-11-14 16:30 | Nephrology Progress Note ---
Assessment/Plan Problem List: (1) Acute on chronic renal failure (2) Anemia (3) Hypothyroidism (4) COPD (chronic obstructive pulmonary disease) Assessment Elevated Cr : CKD vs Acute COPD / Pneumonia Anemia Psych history HypoThyroidism Plan no labs today Down on steroid IV DC folate- DC Motrin Urine studies Avoid Nephrotoxics Keep BP and BS under control Taper steroids as possible Flomax TSH low- down on synthroid IV Iron Subjective ROS Limited/Unobtainable: No Objective Objective Last 24 Hour Vital Signs Date Time Temp Pulse Resp B/P (MAP) Pulse Ox O2 Delivery O2 Flow Rate FiO2 11/14/18 13:20 Room Air 11/14/18 13:19 Room Air 11/14/18 12:00 97.2 90 19 129/75 (93) 98 11/14/18 10:27 97.0 11/14/18 09:51 Room Air 11/14/18 09:51 Room Air 11/14/18 09:42 79 18 Room Air 11/14/18 09:00 Room Air 11/14/18 08:00 97.0 79 20 141/54 (83) 97 11/14/18 04:40 97.7 64 18 105/65 (78) 98 11/14/18 00:00 97.7 74 18 122/74 (90) 95 11/13/18 22:18 Room Air 11/13/18 20:37 81 20 Room Air 11/13/18 20:36 Room Air 11/13/18 20:36 Room Air 11/13/18 20:00 97.3 75 18 115/75 (88) 96 11/13/18 18:30 97.2 75 18 119/75 (90) 98 Intake and Output 11/13/18 11/14/18 18:59 06:59 Intake Total 1240 ml 240 ml Output Total 800 ml Balance 440 ml 240 ml Intake Oral 1240 ml 240 ml Output Urine Total 800 ml # Voids 2 3 Height (Feet): 5 Height (Inches): 10.00 Weight (Pounds): 186 General Appearance: no apparent distress Objective no change Gamal Garcia MD Nov 14, 2018 16:30
[2018-11-14] MEDS: Montelukast 10mg tablet ORAL SCH (17:00)
--- NOTE | 2018-11-14 17:39 | General Progress Note ---
Assessment/Plan Problem List: (1) Abdominal bloating ICD Codes: R14.0 - Abdominal distension (gaseous) SNOMED: 073783927 (2) UTI (urinary tract infection) ICD Codes: N39.0 - Urinary tract infection, site not specified SNOMED: 73660899 (3) Anemia ICD Codes: D64.9 - Anemia, unspecified SNOMED: 793561987 (4) COPD (chronic obstructive pulmonary disease) ICD Codes: J44.9 - Chronic obstructive pulmonary disease, unspecified SNOMED: 66705807 Qualifiers: Qualified Codes: J44.9 - Chronic obstructive pulmonary disease, unspecified (5) Pneumonia ICD Codes: J18.9 - Pneumonia, unspecified organism SNOMED: 829642942 Qualifiers: Qualified Codes: J18.1 - Lobar pneumonia, unspecified organism (6) Acute on chronic renal failure ICD Codes: N17.9 - Acute kidney failure, unspecified; N18.9 - Chronic kidney disease, unspecified SNOMED: 418778401 Qualifiers: Qualified Codes: N17.9 - Acute kidney failure, unspecified; N18.9 - Chronic kidney disease, unspecified Status: progressing Assessment/Plan atypical cp neg trop copd abdominal pain pna improving no acute events afebrile Subjective ROS Limited/Unobtainable: Yes Allergies: Coded Allergies: CHLORPROMAZINE (Unverified Allergy, Unknown, 05/24/18) CLOZAPINE (Unverified Allergy, Unknown, 05/24/18) DIVALPROEX SODIUM (Unverified Allergy, Unknown, 05/24/18) HALOPERIDOL (Unverified Allergy, Unknown, 05/24/18) SERTRALINE (Unverified Allergy, Unknown, 05/24/18) Uncoded Allergies: CLOZASIL (Allergy, Unknown, 07/23/18) Objective Last 24 Hour Vital Signs Date Time Temp Pulse Resp B/P (MAP) Pulse Ox O2 Delivery O2 Flow Rate FiO2 11/14/18 17:29 97.9 11/14/18 16:00 97.9 89 20 123/83 (96) 95 11/14/18 13:20 Room Air 11/14/18 13:19 Room Air 11/14/18 12:00 97.2 90 19 129/75 (93) 98 11/14/18 09:51 Room Air 11/14/18 09:51 Room Air 11/14/18 09:42 79 18 Room Air 11/14/18 09:00 Room Air 11/14/18 08:00 97.0 79 20 141/54 (83) 97 11/14/18 04:40 97.7 64 18 105/65 (78) 98 11/14/18 00:00 97.7 74 18 122/74 (90) 95 11/13/18 22:18 Room Air 11/13/18 20:37 81 20 Room Air 11/13/18 20:36 Room Air 11/13/18 20:36 Room Air 11/13/18 20:00 97.3 75 18 115/75 (88) 96 11/13/18 18:30 97.2 75 18 119/75 (90) 98 Intake and Output 11/13/18 11/14/18 18:59 06:59 Intake Total 1240 ml 240 ml Output Total 800 ml Balance 440 ml 240 ml Intake Oral 1240 ml 240 ml Output Urine Total 800 ml # Voids 2 3 Height (Feet): 5 Height (Inches): 10.00 Weight (Pounds): 186 Cardiovascular: normal rate Respiratory/Chest: lungs clear Yrn Zamudio MD Nov 14, 2018 17:39
--- NOTE | 2018-11-14 18:13 | NUR ---
NURSE NOTES: I changed patient's right ear dressing. Patient had right ear redness and used, A&B, 4X4, and paper tape.
--- NOTE | 2018-11-14 18:27 | NUR ---
NURSE NOTES: I called RT regarding patient's breathing treatment, RT said, they are giving reports, and they know.
--- NOTE | 2018-11-14 19:40 | NUR ---
HAND-OFF: Report given to KAROLINE Hankins.
[2018-11-14 20:00] VITALS: BP 114/75
--- NOTE | 2018-11-14 20:13 | NUR ---
NURSE NOTES: Received patient in bed, alert, oriented x4, No acute distress noted, IV on Lt AC intact, No infiltration noted, Bed in low position and lock engaged, call light and need with in reach, Will continue to monitor. Addendum: 11/15/18 at 0227 by Sarahi Sands RN wrong entry
--- NOTE | 2018-11-14 20:14 | NUR ---
Received patient in bed, alert, oriented x4, No acute distress noted, IV on Lt hand intact, No infiltration noted, Bed in low position and lock engaged, call light and need with in reach, Will continue to monitor. Addendum: 11/15/18 at 0229 by Sarahi Sands RN wrong entry
[2018-11-14] MEDS: Azithromycin 250mg tab ORAL SCH (20:35)
[2018-11-14] MEDS: Topiramate 100mg tab ORAL SCH (20:35)
[2018-11-14] MEDS: TraZODone 100mg tab ORAL SCH (20:35)
--- NOTE | 2018-11-14 20:41 | NUR ---
NURSE NOTES: No distress noted, Patient took all due oral medication, Call light and need within reach, Will continue to monitor.
[2018-11-15] VITALS (7 sets, daily range): BP systolic 100–174; BP diastolic 64–104
[2018-11-15] MEDS: Albuterol/Ipratropium 3ml neb HHN SCH ×4 (01:00→20:28)
[2018-11-15] MEDS: LORazepam 1mg tab ORAL PRN ×2 (06:29→18:46)
[2018-11-15] MEDS: Norco 5mg/325mg tab ORAL PRN ×3 (06:29→19:10)
[2018-11-15 06:38] LABS: EOSINOPHILS % (AUTO) 1.2 % (0.0-3.0); HEMATOCRIT 40.4 % (42.0-52.0); LYMPHOCYTES % (AUTO) 12.9 % (20.0-45.0); MEAN CORPUSCULAR VOLUME 93 FL (80-99); MONOCYTES % (AUTO) 7.5 % (1.0-10.0); NEUTROPHILS % (AUTO) 77.3 % (45.0-75.0); PLATELET COUNT 266 K/UL (150-450); RED BLOOD COUNT 4.33 M/UL (4.70-6.10); RED CELL DISTRIBUTION WIDTH 13.9 % (11.6-14.8); WHITE BLOOD COUNT 11.6 K/UL (4.8-10.8)
[2018-11-15 07:07] LABS: ALANINE AMINOTRANSFERASE 24 U/L (12-78); ALBUMIN 3.5 G/DL (3.4-5.0); ALBUMIN/GLOBULIN RATIO 0.9 (1.0-2.7); ALKALINE PHOSPHATASE 82 U/L (46-116); ANION GAP 9 mmol/L (5-15); ASPARTATE AMINO TRANSFERASE 13 U/L (15-37); BILIRUBIN,TOTAL 0.2 MG/DL (0.2-1.0); BLOOD UREA NITROGEN 30 mg/dL (7-18); CALCIUM 9.2 MG/DL (8.5-10.1); CARBON DIOXIDE 27 MMOL/L (21-32); CHLORIDE 111 MMOL/L (98-107); CREATININE 1.5 MG/DL (0.55-1.30); PHOSPHORUS 3.7 MG/DL (2.5-4.9); POTASSIUM 3.7 MMOL/L (3.5-5.1); SODIUM 147 MMOL/L (136-145)
--- NOTE | 2018-11-15 07:28 | NUR ---
HAND-OFF: Report given to KAROLINE Garg.
--- NOTE | 2018-11-15 07:30 | NUR ---
Pt in bed a/o x 4. Pt denies pain, SOB, chest pain. Pt in no acute distress, lung sounds expiratory wheezing bilaterally. Left hand 22 G patent IV SL. Pt left in room in low position, call light within reach, board updated.
[2018-11-15] MEDS: Advair 100/50 Inhaler - 14 dose INH SCH ×2 (08:21→20:28)
[2018-11-15] MEDS: OLANZapine 10mg tab ORAL SCH ×2 (08:50→17:26)
[2018-11-15] MEDS: cefTRIAXone 1 GM in D5W 55 ML IVPB SCH (08:50)
[2018-11-15] MEDS: Docusate 100mg cap ORAL SCH ×3 (08:51→17:26)
[2018-11-15] MEDS: Tamsulosin 0.4mg cap ORAL SCH ×2 (08:51→19:10)
[2018-11-15] MEDS: Multivitamin w/Minerals tab ORAL SCH (08:51)
--- NOTE | 2018-11-15 11:19 | Nephrology Progress Note ---
Assessment/Plan Problem List: (1) Acute on chronic renal failure (2) Anemia (3) Hypothyroidism (4) COPD (chronic obstructive pulmonary disease) Assessment Elevated Cr : CKD vs Acute COPD / Pneumonia Anemia Psych history HypoThyroidism Plan 500 cc D5W DC folate- DC Motrin Urine studies Avoid Nephrotoxics Keep BP and BS under control Taper steroids as possible Flomax TSH low- down on synthroid Subjective ROS Limited/Unobtainable: No Constitutional: Reports: malaise Objective Objective Last 24 Hour Vital Signs Date Time Temp Pulse Resp B/P (MAP) Pulse Ox O2 Delivery O2 Flow Rate FiO2 11/15/18 08:02 88 16 97 Room Air 21 11/15/18 08:00 98.0 84 20 115/69 (84) 97 11/15/18 04:00 97.7 68 19 114/73 (87) 95 11/15/18 01:24 Room Air 21 11/15/18 01:24 Room Air 21 11/15/18 00:00 97.8 108 19 109/71 (84) 95 11/14/18 21:00 Room Air 11/14/18 20:34 98 20 99 Room Air 21 11/14/18 20:24 92 18 94 Room Air 21 11/14/18 20:23 Room Air 21 11/14/18 20:23 Room Air 21 11/14/18 20:00 98.4 89 19 114/75 (88) 94 11/14/18 17:29 97.9 11/14/18 16:00 97.9 89 20 123/83 (96) 95 11/14/18 13:20 Room Air 11/14/18 13:19 Room Air 11/14/18 12:00 97.2 90 19 129/75 (93) 98 Intake and Output 11/14/18 11/15/18 19:00 07:00 Intake Total 920 ml 240 ml Balance 920 ml 240 ml Intake Oral 920 ml 240 ml # Voids 5 3 Laboratory Tests 11/15/18 05:35: White Blood Count 11.6H, Red Blood Count 4.33L, Hemoglobin 13.0L, Hematocrit 40.4L, Mean Corpuscular Volume 93, Mean Corpuscular Hemoglobin 30.1, Mean Corpuscular Hemoglobin Concent 32.3, Red Cell Distribution Width 13.9, Platelet Count 266, Mean Platelet Volume 5.1L, Neutrophils (%) (Auto) 77.3H, Lymphocytes (%) (Auto) 12.9L, Monocytes (%) (Auto) 7.5, Eosinophils (%) (Auto) 1.2, Basophils (%) (Auto) 1.0, Sodium Level 147H, Potassium Level 3.7, Chloride Level 111H, Carbon Dioxide Level 27, Anion Gap 9, Blood Urea Nitrogen 30H, Creatinine 1.5H, Estimat Glomerular Filtration Rate 47.6, Glucose Level 92, Uric Acid 8.0H, Calcium Level 9.2, Phosphorus Level 3.7, Total Bilirubin 0.2, Aspartate Amino Transf (AST/SGOT) 13L, Alanine Aminotransferase (ALT/SGPT) 24, Alkaline Phosphatase 82, C-Reactive Protein, Quantitative < 0.4, Pro-B-Type Natriuretic Peptide 31, Total Protein 7.3, Albumin 3.5, Globulin 3.8, Albumin/ Globulin Ratio 0.9L Height (Feet): 5 Height (Inches): 10.00 Weight (Pounds): 186 General Appearance: no apparent distress Cardiovascular: normal rate Respiratory/Chest: decreased breath sounds Abdomen: soft Objective no change Gamal Garcia MD Nov 15, 2018 11:19
--- NOTE | 2018-11-15 12:24 | Pulmonology Progress Note ---
Assessment/Plan Problems: (1) COPD exacerbation (2) COPD (chronic obstructive pulmonary disease) (3) Acute on chronic renal failure (4) Anemia (5) Psychosis Assessment/Plan Optimize pulmonary hygiene/mobilize as tolerated PRN o2 Continue Advair and Singulair for the time being RTC and PRN DUOnebs Pred 30 and taper Abx (CTx/Azithro) per ID Monitor volumes and renal function Tobacco cessation discussed at length NEEDS AN OUTPATIENT PULMONARY EVALUATION (PFT, screening CT chest) and optimization of inhaler regimen (stated hx of COPD but Advair and singulair suggestive of asthma and not optimal COPD therapy) Subjective Allergies: Coded Allergies: CHLORPROMAZINE (Unverified Allergy, Unknown, 05/24/18) CLOZAPINE (Unverified Allergy, Unknown, 05/24/18) DIVALPROEX SODIUM (Unverified Allergy, Unknown, 05/24/18) HALOPERIDOL (Unverified Allergy, Unknown, 05/24/18) SERTRALINE (Unverified Allergy, Unknown, 05/24/18) Uncoded Allergies: CLOZASIL (Allergy, Unknown, 07/23/18) Subjective AFVSS, on RA Denies SOB, less cough ,no wheezing, no FC, no CP Objective Last 24 Hour Vital Signs Date Time Temp Pulse Resp B/P (MAP) Pulse Ox O2 Delivery O2 Flow Rate FiO2 11/15/18 09:00 Room Air 11/15/18 08:02 88 16 97 Room Air 11/15/18 08:00 98.0 84 20 115/69 (84) 97 11/15/18 04:00 97.7 68 19 114/73 (87) 95 11/15/18 01:24 Room Air 21 11/15/18 01:24 Room Air 21 11/15/18 00:00 97.8 108 19 109/71 (84) 95 11/14/18 21:00 Room Air 11/14/18 20:34 98 20 99 Room Air 11/14/18 20:24 92 18 94 Room Air 21 11/14/18 20:23 Room Air 21 11/14/18 20:23 Room Air 21 11/14/18 20:00 98.4 89 19 114/75 (88) 94 11/14/18 17:29 97.9 11/14/18 16:00 97.9 89 20 123/83 (96) 95 11/14/18 13:20 Room Air 11/14/18 13:19 Room Air Intake and Output 11/14/18 11/15/18 19:00 07:00 Intake Total 920 ml 240 ml Balance 920 ml 240 ml Intake Oral 920 ml 240 ml # Voids 5 3 General Appearance: WD/WN, no acute distress HEENT: normocephalic, atraumatic, anicteric, mucous membranes moist Respiratory/Chest: chest wall non-tender, lungs clear, normal breath sounds, no respiratory distress, no accessory muscle use Cardiovascular: normal peripheral pulses, normal rate, regular rhythm Abdomen: normal bowel sounds, soft, non tender, no organomegaly, non distended , no mass Extremities: no cyanosis, no clubbing, no edema Laboratory Tests 11/15/18 05:35: White Blood Count 11.6H, Red Blood Count 4.33L, Hemoglobin 13.0L, Hematocrit 40.4L, Mean Corpuscular Volume 93, Mean Corpuscular Hemoglobin 30.1, Mean Corpuscular Hemoglobin Concent 32.3, Red Cell Distribution Width 13.9, Platelet Count 266, Mean Platelet Volume 5.1L, Neutrophils (%) (Auto) 77.3H, Lymphocytes (%) (Auto) 12.9L, Monocytes (%) (Auto) 7.5, Eosinophils (%) (Auto) 1.2, Basophils (%) (Auto) 1.0, Sodium Level 147H, Potassium Level 3.7, Chloride Level 111H, Carbon Dioxide Level 27, Anion Gap 9, Blood Urea Nitrogen 30H, Creatinine 1.5H, Estimat Glomerular Filtration Rate 47.6, Glucose Level 92, Uric Acid 8.0H, Calcium Level 9.2, Phosphorus Level 3.7, Total Bilirubin 0.2, Aspartate Amino Transf (AST/SGOT) 13L, Alanine Aminotransferase (ALT/SGPT) 24, Alkaline Phosphatase 82, C-Reactive Protein, Quantitative < 0.4, Pro-B-Type Natriuretic Peptide 31, Total Protein 7.3, Albumin 3.5, Globulin 3.8, Albumin/ Globulin Ratio 0.9L Current Medications Medications (Trade) Dose Ordered Sig/Cori Route PRN Reason Start Time Stop Time Status Last Admin Dose Admin Acetaminophen (Tylenol) 325 mg Q4H PRN ORAL Mild Pain/Temp > 100.5 11/13/18 19:30 12/11/18 19:29 Acetaminophen (Tylenol) 500 mg Q4H PRN ORAL Moderate Pain (Pain Scale 4-6) 11/13/18 19:30 12/13/18 19:29 Acetaminophen/ Hydrocodone Bitart ([place] 5/325) 1 tab Q6H PRN ORAL Severe Pain (Pain Scale 7-10) 11/13/18 19:30 11/20/18 19:29 11/15/18 06:29 Albuterol/ Ipratropium (Albuterol/ Ipratropium) 3 ml Q4H PRN HHN Shortness of Breath 11/14/18 09:39 11/19/18 09:38 Albuterol/ Ipratropium (Albuterol/ Ipratropium) 3 ml Q6HRT HHN 11/14/18 13:00 11/19/18 12:59 11/15/18 08:02 Azithromycin (Zithromax) 500 mg Q24H ORAL 11/13/18 20:00 11/18/18 19:59 11/14/18 20:35 Baclofen (Lioresal) 5 mg Q8H PRN ORAL Muscle spasm 11/13/18 22:00 12/13/18 21:59 Bisacodyl (Dulcolax) 10 mg Q24H PRN RECTAL Constipation 11/13/18 19:30 12/13/18 19:29 Ceftriaxone Sodium 1 gm/ Dextrose 55 ml @ 110 mls/hr DAILY IVPB 11/14/18 09:00 11/18/18 11:59 11/15/18 08:50 Clonazepam (KlonoPIN) 2 mg TID ORAL 11/14/18 09:00 11/18/18 08:59 11/15/18 08:51 Dextrose 500 ml @ 500 mls/hr ONCE ONCE IV 11/15/18 12:00 11/15/18 12:59 Docusate Sodium (Colace) 100 mg TID ORAL 11/14/18 09:00 12/11/18 08:59 11/15/18 08:51 Finasteride (Proscar) 5 mg DAILY ORAL 11/14/18 09:00 12/11/18 08:59 11/15/18 08:50 Levothyroxine Sodium (Synthroid) 50 mcg ACBREAKFAST ORAL 11/14/18 06:30 12/14/18 06:29 11/15/18 06:29 Lorazepam (Ativan) 1 mg Q6H PRN ORAL For Anxiety 11/13/18 19:30 11/20/18 19:29 11/15/18 06:29 Magnesium Hydroxide (Mom) 30 ml HSPRN PRN ORAL Constipation 11/13/18 21:00 12/13/18 20:59 Montelukast Sodium (Singulair) 10 mg QPM ORAL 11/14/18 16:30 12/11/18 16:29 11/14/18 17:00 Multivitamins Therapeutic (Therapeutic Multivitamin) 1 ea DAILY ORAL 11/14/18 09:00 12/11/18 08:59 11/15/18 08:51 Olanzapine (ZyPREXA) 10 mg BID ORAL 11/14/18 09:00 12/11/18 08:59 11/15/18 08:50 Pantoprazole (Protonix) 40 mg BIAC ORAL 11/14/18 06:30 12/11/18 06:29 11/15/18 06:29 Prednisone (predniSONE) 30 mg DAILY ORAL 11/16/18 09:00 12/15/18 08:59 Salmeterol Xinafoate/ Fluticasone (Advair 100/50 Diskus) 1 puffs BID INH 11/13/18 20:00 12/13/18 19:59 Sodium Phosphate (Fleet's Sodium Phosl Enema) 133 ml Q24H PRN RECTAL Constipation 11/14/18 00:30 12/14/18 00:29 Tamsulosin HCl (Flomax) 0.4 mg BID ORAL 11/14/18 09:00 12/11/18 08:59 11/15/18 08:51 Topiramate (Topamax) 100 mg QHS ORAL 11/13/18 21:00 12/11/18 20:59 11/14/18 20:35 Trazodone HCl (Desyrel) 100 mg BEDTIME ORAL 11/13/18 21:00 12/11/18 20:59 11/14/18 20:35 Jan Caraballo MD Nov 15, 2018 12:24
--- NOTE | 2018-11-15 13:42 | NUR ---
Pt refuses D5W 500ml as ordered per Dr. Keita. Educated the pt on the need to have the fluids administered given abnormal labs. Pt still refuses medication. "Get out of the room now and let me sleep." Called Dr. Keita and informed of pts refusal to take medication. Will continue to monitor.
--- NOTE | 2018-11-15 13:56 | Infectious Diseases Prog Note ---
Assessment/Plan Assessment/Plan A: COPD/ Asthma exacerbation CKD BPH Paranoid schizophrenia Hypothyroidism MRSA colonization P; discontinue Rocephin & Zithromax Observe off antibiotic Subjective ROS Limited/Unobtainable: Yes Constitutional: Reports: no symptoms Allergies: Coded Allergies: CHLORPROMAZINE (Unverified Allergy, Unknown, 05/24/18) CLOZAPINE (Unverified Allergy, Unknown, 05/24/18) DIVALPROEX SODIUM (Unverified Allergy, Unknown, 05/24/18) HALOPERIDOL (Unverified Allergy, Unknown, 05/24/18) SERTRALINE (Unverified Allergy, Unknown, 05/24/18) Uncoded Allergies: CLOZASIL (Allergy, Unknown, 07/23/18) Objective Vital Signs Last 24 Hour Vital Signs Date Time Temp Pulse Resp B/P (MAP) Pulse Ox O2 Delivery O2 Flow Rate FiO2 11/15/18 12:00 97.6 76 18 100/64 (76) 100 11/15/18 09:00 Room Air 11/15/18 08:47 Room Air 11/15/18 08:46 Room Air 11/15/18 08:12 79 18 98 Room Air 21 11/15/18 08:02 88 16 97 Room Air 21 11/15/18 08:00 98.0 84 20 115/69 (84) 97 11/15/18 04:00 97.7 68 19 114/73 (87) 95 11/15/18 01:24 Room Air 21 11/15/18 01:24 Room Air 21 11/15/18 00:00 97.8 108 19 109/71 (84) 95 11/14/18 21:00 Room Air 11/14/18 20:34 98 20 99 Room Air 11/14/18 20:24 92 18 94 Room Air 21 11/14/18 20:23 Room Air 21 11/14/18 20:23 Room Air 21 11/14/18 20:00 98.4 89 19 114/75 (88) 94 11/14/18 17:29 97.9 11/14/18 16:00 97.9 89 20 123/83 (96) 95 Height (Feet): 5 Height (Inches): 10.00 Weight (Pounds): 186 General Appearance: no acute distress HEENT: mucous membranes moist Respiratory/Chest: lungs clear Cardiovascular: normal rate Abdomen: soft, non tender Extremities: no edema 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: other - sleeping Laboratory Tests Test 11/15/18 05:35 White Blood Count 11.6 K/UL (4.8-10.8) H Red Blood Count 4.33 M/UL (4.70-6.10) L Hemoglobin 13.0 G/DL (14.2-18.0) L Hematocrit 40.4 % (42.0-52.0) L Mean Corpuscular Volume 93 FL (80-99) Mean Corpuscular Hemoglobin 30.1 PG (27.0-31.0) Mean Corpuscular Hemoglobin Concent 32.3 G/DL (32.0-36.0) Red Cell Distribution Width 13.9 % (11.6-14.8) Platelet Count 266 K/UL (150-450) Mean Platelet Volume 5.1 FL (6.5-10.1) L Neutrophils (%) (Auto) 77.3 % (45.0-75.0) H Lymphocytes (%) (Auto) 12.9 % (20.0-45.0) L Monocytes (%) (Auto) 7.5 % (1.0-10.0) Eosinophils (%) (Auto) 1.2 % (0.0-3.0) Basophils (%) (Auto) 1.0 % (0.0-2.0) Sodium Level 147 MMOL/L (136-145) H Potassium Level 3.7 MMOL/L (3.5-5.1) Chloride Level 111 MMOL/L (98-107) H Carbon Dioxide Level 27 MMOL/L (21-32) Anion Gap 9 mmol/L (5-15) Blood Urea Nitrogen 30 mg/dL (7-18) H Creatinine 1.5 MG/DL (0.55-1.30) H Estimat Glomerular Filtration Rate 47.6 mL/min (>60) Glucose Level 92 MG/DL (74-106) Uric Acid 8.0 MG/DL (2.6-7.2) H Calcium Level 9.2 MG/DL (8.5-10.1) Phosphorus Level 3.7 MG/DL (2.5-4.9) Total Bilirubin 0.2 MG/DL (0.2-1.0) Aspartate Amino Transf (AST/SGOT) 13 U/L (15-37) L Alanine Aminotransferase (ALT/SGPT) 24 U/L (12-78) Alkaline Phosphatase 82 U/L (46-116) C-Reactive Protein, Quantitative < 0.4 mg/dL (0.00-0.90) Pro-B-Type Natriuretic Peptide 31 pg/mL (0-125) Total Protein 7.3 G/DL (6.4-8.2) Albumin 3.5 G/DL (3.4-5.0) Globulin 3.8 g/dL Albumin/Globulin Ratio 0.9 (1.0-2.7) L Current Medications Medications (Trade) Dose Ordered Sig/Cori Route PRN Reason Start Time Stop Time Status Last Admin Dose Admin Acetaminophen (Tylenol) 325 mg Q4H PRN ORAL Mild Pain/Temp > 100.5 11/13/18 19:30 12/11/18 19:29 Acetaminophen (Tylenol) 500 mg Q4H PRN ORAL Moderate Pain (Pain Scale 4-6) 11/13/18 19:30 12/13/18 19:29 Acetaminophen/ Hydrocodone Bitart ([place] 5/325) 1 tab Q6H PRN ORAL Severe Pain (Pain Scale 7-10) 11/13/18 19:30 11/20/18 19:29 11/15/18 13:20 Albuterol/ Ipratropium (Albuterol/ Ipratropium) 3 ml Q4H PRN HHN Shortness of Breath 11/14/18 09:39 11/19/18 09:38 Albuterol/ Ipratropium (Albuterol/ Ipratropium) 3 ml Q6HRT HHN 11/14/18 13:00 11/19/18 12:59 11/15/18 08:02 Azithromycin (Zithromax) 500 mg Q24H ORAL 11/13/18 20:00 11/18/18 19:59 11/14/18 20:35 Baclofen (Lioresal) 5 mg Q8H PRN ORAL Muscle spasm 11/13/18 22:00 12/13/18 21:59 Bisacodyl (Dulcolax) 10 mg Q24H PRN RECTAL Constipation 11/13/18 19:30 12/13/18 19:29 Ceftriaxone Sodium 1 gm/ Dextrose 55 ml @ 110 mls/hr DAILY IVPB 11/14/18 09:00 11/18/18 11:59 11/15/18 08:50 Clonazepam (KlonoPIN) 2 mg TID ORAL 11/14/18 09:00 11/18/18 08:59 11/15/18 13:19 Docusate Sodium (Colace) 100 mg TID ORAL 11/14/18 09:00 12/11/18 08:59 11/15/18 13:19 Finasteride (Proscar) 5 mg DAILY ORAL 11/14/18 09:00 12/11/18 08:59 11/15/18 08:50 Levothyroxine Sodium (Synthroid) 50 mcg ACBREAKFAST ORAL 11/14/18 06:30 12/14/18 06:29 11/15/18 06:29 Lorazepam (Ativan) 1 mg Q6H PRN ORAL For Anxiety 11/13/18 19:30 11/20/18 19:29 11/15/18 06:29 Magnesium Hydroxide (Mom) 30 ml HSPRN PRN ORAL Constipation 11/13/18 21:00 12/13/18 20:59 Montelukast Sodium (Singulair) 10 mg QPM ORAL 11/14/18 16:30 12/11/18 16:29 11/14/18 17:00 Multivitamins Therapeutic (Therapeutic Multivitamin) 1 ea DAILY ORAL 11/14/18 09:00 12/11/18 08:59 11/15/18 08:51 Olanzapine (ZyPREXA) 10 mg BID ORAL 11/14/18 09:00 12/11/18 08:59 11/15/18 08:50 Pantoprazole (Protonix) 40 mg BIAC ORAL 11/14/18 06:30 12/11/18 06:29 11/15/18 06:29 Prednisone (predniSONE) 30 mg DAILY ORAL 11/16/18 09:00 12/15/18 08:59 Salmeterol Xinafoate/ Fluticasone (Advair 100/50 Diskus) 1 puffs BID INH 11/13/18 20:00 12/13/18 19:59 Sodium Phosphate (Fleet's Sodium Phosl Enema) 133 ml Q24H PRN RECTAL Constipation 11/14/18 00:30 12/14/18 00:29 Tamsulosin HCl (Flomax) 0.4 mg BID ORAL 11/14/18 09:00 12/11/18 08:59 11/15/18 08:51 Topiramate (Topamax) 100 mg QHS ORAL 11/13/18 21:00 12/11/18 20:59 11/14/18 20:35 Trazodone HCl (Desyrel) 100 mg BEDTIME ORAL 11/13/18 21:00 12/11/18 20:59 11/14/18 20:35 Hank Diaz MD Nov 15, 2018 13:56
--- NOTE | 2018-11-15 15:06 | NUR ---
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 97.6 HR 76 RR 18 B/P 100/64 RA 98% WBC 11.6 NA 147 BUN 30 CR 1.5 IS: CEFTRIAXONE IV PREDNISONE PO TOPAMAX PO ZITHROMAX PO ALB HHN MED/SURG STATUS
[2018-11-15] MEDS: Montelukast 10mg tablet ORAL SCH (17:26)
--- NOTE | 2018-11-15 19:30 | NUR ---
NURSE NOTES: Received a report from KAROLINE Burch. Pt is in stable condition. Sleeping comfortably. No respiratory distress noted. On room air. No c/o pain/discomfort. IV access is patent and intact. Bed in lowest position. Bed alarm is on. Call light within reach. Will continue to monitor.
--- NOTE | 2018-11-15 19:58 | NUR ---
HAND-OFF: Report given to KAROLINE Ramirez. Pt left in bed in no acute distress. pt sleeping in bed. Bed alarm on and locked, call light within reach.
[2018-11-15] MEDS: Topiramate 100mg tab ORAL SCH (22:34)
[2018-11-15] MEDS: TraZODone 100mg tab ORAL SCH (22:34)
[2018-11-16] VITALS (7 sets, daily range): BP systolic 90–130; BP diastolic 62–78
--- NOTE | 2018-11-16 00:42 | Consultation ---
DATE OF CONSULTATION: 11/15/2018 HISTORY OF PRESENT ILLNESS: This is a 63-year-old male patient who was admitted to [facility] secondary to COPD and chest pain, but this patient also has overlying diagnosis of paranoid schizophrenia with acute exacerbation that is why daily psychiatric consultation was requested by attending physician. His mood lability and psychosis have worsened secondary to stress his medical illness. I saw and assessed the patient at bedside. The patient's chief complaint was " When I am anxious, I have lot of anxiety because medical problems was not getting any better and get back to my facility" that is the patient's chief complaint when I interviewed today. He is unable to say to help stabilize his mood, reduce mood lability. He does endorse intermittent bouts of anxiety and panic attacks. MEDICATIONS: On admission, Zyprexa 10 mg twice a day, Topamax 100 mg at bedtime, Klonopin. ALLERGIES: Clozaril, Depakote, Haldol, and Zoloft. PAST MEDICAL HISTORY: As far as the patient's medical problems, he is endorsing history of hypothyroidism, BPH, chest pain, COPD. SUBSTANCE ABUSE HISTORY: Denies any recent drug or alcohol use. FAMILY PSYCHIATRIC HISTORY: Denies. PAIN ASSESSMENT: 01/20 pain. DEVELOPMENTAL PROBLEMS: Denies. SOCIAL HISTORY: The patient lives in [facility], financially supported by [facility] and Medicare. PSYCHIATRIC HISTORY: Paranoid schizophrenia with acute exacerbation. He has had multiple psychiatric admissions. STRENGTHS: He is motivated to get better and he is healthy. WEAKNESSES: He is impulsive and minimal support system MENTAL STATUS EXAMINATION: This is a 63-year-old male. Appearance is disheveled. Attitude, irritable and agitated. Affect guarded and restricted. Intellect poor. Mood, depressed and anxious. Motor activity, psychomotor agitation. Attention span is poor. Orientation x2. Speech is low volume and slurred. Thought process is disorganized and logical. Thought content, he has auditory hallucinations or paranoia. Insight and judgment is poor. DIAGNOSIS: 1. Paranoid schizophrenia with acute exacerbation. 2. Medical, hypothyroidism, COPD, BPH. 3. Psychosocial stressors, financial. PLAN: Plan for this patient is to treat him with Topamax 100 mg at bedtime, Zyprexa 10 mg twice a day, and Klonopin as well. Provided with 20 minutes of cognitive behavioral therapy to help him identify automatic negative thoughts and help him to convert negative thoughts to more positive thoughts to reduce depression, anxiety, and suicidality. Seen and assessed at bedside. Chart reviewed. Discussed with staff. A 20 minutes of cognitive behavioral therapy provided. Shantanu Way M.D. DR: Gentry JOB#: [id number] CC:
[2018-11-16] MEDS: Albuterol/Ipratropium 3ml neb HHN SCH ×4 (01:00→19:57)
[2018-11-16] MEDS: Norco 5mg/325mg tab ORAL PRN ×3 (01:29→16:30)
[2018-11-16] MEDS: LORazepam 1mg tab ORAL PRN ×3 (02:40→19:46)
--- NOTE | 2018-11-16 07:15 | NUR ---
HAND-OFF: Report given to KAROLINE Burch.
--- NOTE | 2018-11-16 07:25 | NUR ---
NURSE NOTES: Pt walking out of restroom a/o x 4 in no acute distress. Pt denies chest pain, SOB. Patent IV to left hand SL. Pt left in bed in low position, call light within reach, board updated, suction at bedside.
[2018-11-16] MEDS: Advair 100/50 Inhaler - 14 dose INH SCH ×2 (09:00→19:57)
[2018-11-16] MEDS: Docusate 100mg cap ORAL SCH ×3 (09:17→17:35)
[2018-11-16] MEDS: Multivitamin w/Minerals tab ORAL SCH (09:17)
[2018-11-16] MEDS: Tamsulosin 0.4mg cap ORAL SCH ×2 (09:18→17:32)
[2018-11-16] MEDS: OLANZapine 10mg tab ORAL SCH ×2 (09:19→17:32)
--- NOTE | 2018-11-16 12:10 | Nephrology Progress Note ---
Assessment/Plan Problem List: (1) Acute on chronic renal failure (2) Anemia (3) Hypothyroidism (4) COPD (chronic obstructive pulmonary disease) Assessment Elevated Cr : CKD vs Acute COPD / Pneumonia Anemia Psych history HypoThyroidism Plan 500 cc D5W DC folate- DC Motrin Urine studies Avoid Nephrotoxics Keep BP and BS under control Taper steroids as possible Flomax TSH low- down on synthroid Subjective ROS Limited/Unobtainable: No Constitutional: Reports: malaise Objective Objective Last 24 Hour Vital Signs Date Time Temp Pulse Resp B/P (MAP) Pulse Ox O2 Delivery O2 Flow Rate FiO2 11/16/18 09:49 97.5 11/16/18 09:23 Room Air 21 11/16/18 09:23 Room Air 21 11/16/18 09:00 Room Air 11/16/18 08:00 97.5 78 19 130/76 (94) 99 11/16/18 07:50 Room Air 21 11/16/18 07:50 Room Air 21 11/16/18 04:00 97.5 71 20 112/78 (89) 97 11/16/18 01:27 Room Air 21 11/16/18 01:27 Room Air 21 11/16/18 00:00 97.0 73 20 111/76 (88) 95 11/15/18 21:00 Room Air 11/15/18 20:28 Room Air 21 11/15/18 20:28 Room Air 21 11/15/18 20:28 Room Air 21 11/15/18 20:28 Room Air 21 11/15/18 20:00 97.0 95 20 104/66 (79) 98 11/15/18 16:00 98.1 86 19 111/75 (87) 95 11/15/18 14:16 Room Air 21 11/15/18 14:16 Room Air 21 Intake and Output 11/15/18 11/16/18 19:00 07:00 Intake Total 480 ml 2000 ml Balance 480 ml 2000 ml Intake Oral 480 ml 2000 ml # Voids 2 4 # Bowel Movements 1 Height (Feet): 5 Height (Inches): 10.00 Weight (Pounds): 186 General Appearance: no apparent distress Objective no change Gaaml Garcia MD Nov 16, 2018 12:10
--- NOTE | 2018-11-16 14:25 | Infectious Diseases Prog Note ---
Assessment/Plan Assessment/Plan A: COPD/ Asthma exacerbation CKD BPH Paranoid schizophrenia Hypothyroidism MRSA colonization P; Observe off antibiotic Subjective ROS Limited/Unobtainable: No Constitutional: Reports: no symptoms Respiratory: Reports: no symptoms Gastrointestinal/Abdominal: Reports: no symptoms Genitourinary: Reports: no symptoms Allergies: Coded Allergies: CHLORPROMAZINE (Unverified Allergy, Unknown, 05/24/18) CLOZAPINE (Unverified Allergy, Unknown, 05/24/18) DIVALPROEX SODIUM (Unverified Allergy, Unknown, 05/24/18) HALOPERIDOL (Unverified Allergy, Unknown, 05/24/18) SERTRALINE (Unverified Allergy, Unknown, 05/24/18) Uncoded Allergies: CLOZASIL (Allergy, Unknown, 07/23/18) Objective Vital Signs Last 24 Hour Vital Signs Date Time Temp Pulse Resp B/P (MAP) Pulse Ox O2 Delivery O2 Flow Rate FiO2 11/16/18 13:20 75 18 98 Room Air 21 11/16/18 13:12 83 18 95 Room Air 11/16/18 12:00 98.2 68 20 117/75 (89) 94 11/16/18 09:49 97.5 11/16/18 09:23 Room Air 21 11/16/18 09:23 Room Air 21 11/16/18 09:00 Room Air 11/16/18 08:00 97.5 78 19 130/76 (94) 99 11/16/18 07:50 Room Air 21 11/16/18 07:50 Room Air 21 11/16/18 04:00 97.5 71 20 112/78 (89) 97 11/16/18 01:27 Room Air 21 11/16/18 01:27 Room Air 21 11/16/18 00:00 97.0 73 20 111/76 (88) 95 11/15/18 21:00 Room Air 11/15/18 20:28 Room Air 21 11/15/18 20:28 Room Air 21 11/15/18 20:28 Room Air 21 11/15/18 20:28 Room Air 21 11/15/18 20:00 97.0 95 20 104/66 (79) 98 11/15/18 16:00 98.1 86 19 111/75 (87) 95 Height (Feet): 5 Height (Inches): 10.00 Weight (Pounds): 186 General Appearance: no acute distress HEENT: mucous membranes moist Respiratory/Chest: other - slight wheezing with deep breathing Abdomen: soft, non tender Extremities: no edema 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: alert, responsive Current Medications Medications (Trade) Dose Ordered Sig/Cori Route PRN Reason Start Time Stop Time Status Last Admin Dose Admin Acetaminophen (Tylenol) 325 mg Q4H PRN ORAL Mild Pain/Temp > 100.5 11/13/18 19:30 12/11/18 19:29 Acetaminophen (Tylenol) 500 mg Q4H PRN ORAL Moderate Pain (Pain Scale 4-6) 11/13/18 19:30 12/13/18 19:29 Acetaminophen/ Hydrocodone Bitart ([place] 5/325) 1 tab Q6H PRN ORAL Severe Pain (Pain Scale 7-10) 11/13/18 19:30 11/20/18 19:29 11/16/18 09:19 Albuterol/ Ipratropium (Albuterol/ Ipratropium) 3 ml Q4H PRN HHN Shortness of Breath 11/14/18 09:39 11/19/18 09:38 Albuterol/ Ipratropium (Albuterol/ Ipratropium) 3 ml Q6HRT HHN 11/14/18 13:00 11/19/18 12:59 11/16/18 13:12 Baclofen (Lioresal) 5 mg Q8H PRN ORAL Muscle spasm 11/13/18 22:00 12/13/18 21:59 Bisacodyl (Dulcolax) 10 mg Q24H PRN RECTAL Constipation 11/13/18 19:30 12/13/18 19:29 Clonazepam (KlonoPIN) 2 mg TID ORAL 11/14/18 09:00 11/18/18 08:59 11/16/18 09:19 Docusate Sodium (Colace) 100 mg TID ORAL 11/14/18 09:00 12/11/18 08:59 11/16/18 09:17 Finasteride (Proscar) 5 mg DAILY ORAL 11/14/18 09:00 12/11/18 08:59 11/16/18 09:17 Levothyroxine Sodium (Synthroid) 50 mcg ACBREAKFAST ORAL 11/14/18 06:30 12/14/18 06:29 11/16/18 06:03 Lorazepam (Ativan) 1 mg Q6H PRN ORAL For Anxiety 11/13/18 19:30 11/20/18 19:29 11/16/18 12:08 Magnesium Hydroxide (Mom) 30 ml HSPRN PRN ORAL Constipation 11/13/18 21:00 12/13/18 20:59 Montelukast Sodium (Singulair) 10 mg QPM ORAL 11/14/18 16:30 12/11/18 16:29 11/15/18 17:26 Multivitamins Therapeutic (Therapeutic Multivitamin) 1 ea DAILY ORAL 11/14/18 09:00 12/11/18 08:59 11/16/18 09:17 Olanzapine (ZyPREXA) 10 mg BID ORAL 11/14/18 09:00 12/11/18 08:59 11/16/18 09:19 Pantoprazole (Protonix) 40 mg BIAC ORAL 11/14/18 06:30 12/11/18 06:29 11/16/18 06:03 Prednisone (predniSONE) 30 mg DAILY ORAL 11/16/18 09:00 12/15/18 08:59 11/16/18 09:18 Salmeterol Xinafoate/ Fluticasone (Advair 100/50 Diskus) 1 puffs BID INH 11/13/18 20:00 12/13/18 19:59 Sodium Phosphate (Fleet's Sodium Phosl Enema) 133 ml Q24H PRN RECTAL Constipation 11/14/18 00:30 12/14/18 00:29 Tamsulosin HCl (Flomax) 0.4 mg BID ORAL 11/14/18 09:00 12/11/18 08:59 11/16/18 09:18 Topiramate (Topamax) 100 mg QHS ORAL 11/13/18 21:00 12/11/18 20:59 11/15/18 22:34 Trazodone HCl (Desyrel) 100 mg BEDTIME ORAL 11/13/18 21:00 12/11/18 20:59 11/15/18 22:34 Hank Diaz MD Nov 16, 2018 14:25
--- NOTE | 2018-11-16 15:17 | NUR ---
SS note Chart reviewed; Patient is from SNF and will return there upon discharge. No Sw needs identified at this time. SW to follow further as needed.
[2018-11-16] MEDS: Montelukast 10mg tablet ORAL SCH (16:30)
--- NOTE | 2018-11-16 16:33 | Pulmonology Progress Note ---
Assessment/Plan Problems: (1) COPD exacerbation (2) COPD (chronic obstructive pulmonary disease) (3) Acute on chronic renal failure (4) Anemia (5) Psychosis Assessment/Plan Optimize pulmonary hygiene/mobilize as tolerated PRN o2 Continue Advair and Singulair for the time being RTC and PRN DUOnebs Decrease Pred to 20 and taper Observe off Abx per ID Monitor volumes and renal function Tobacco cessation discussed at length NEEDS AN OUTPATIENT PULMONARY EVALUATION (PFT, screening CT chest) and optimization of inhaler regimen (stated hx of COPD but Advair and singulair suggestive of asthma and not optimal COPD therapy) Subjective Allergies: Coded Allergies: CHLORPROMAZINE (Unverified Allergy, Unknown, 05/24/18) CLOZAPINE (Unverified Allergy, Unknown, 05/24/18) DIVALPROEX SODIUM (Unverified Allergy, Unknown, 05/24/18) HALOPERIDOL (Unverified Allergy, Unknown, 05/24/18) SERTRALINE (Unverified Allergy, Unknown, 05/24/18) Uncoded Allergies: CLOZASIL (Allergy, Unknown, 07/23/18) Subjective AFVSS, on RA Denies SOB, no cough ,no wheezing, no FC, no CP Objective Last 24 Hour Vital Signs Date Time Temp Pulse Resp B/P (MAP) Pulse Ox O2 Delivery O2 Flow Rate FiO2 11/16/18 14:52 78 20 106/66 (79) 92 11/16/18 13:20 75 18 98 Room Air 21 11/16/18 13:12 83 18 95 Room Air 21 11/16/18 12:00 98.2 68 20 117/75 (89) 94 11/16/18 09:49 97.5 11/16/18 09:23 Room Air 21 11/16/18 09:23 Room Air 21 11/16/18 09:00 Room Air 11/16/18 08:00 97.5 78 19 130/76 (94) 99 11/16/18 07:50 Room Air 21 11/16/18 07:50 Room Air 21 11/16/18 04:00 97.5 71 20 112/78 (89) 97 11/16/18 01:27 Room Air 21 11/16/18 01:27 Room Air 21 11/16/18 00:00 97.0 73 20 111/76 (88) 95 11/15/18 21:00 Room Air 11/15/18 20:28 Room Air 21 11/15/18 20:28 Room Air 21 11/15/18 20:28 Room Air 21 11/15/18 20:28 Room Air 21 11/15/18 20:00 97.0 95 20 104/66 (79) 98 Intake and Output 11/15/18 11/16/18 19:00 07:00 Intake Total 480 ml 2000 ml Balance 480 ml 2000 ml Intake Oral 480 ml 2000 ml # Voids 2 4 # Bowel Movements 1 General Appearance: WD/WN, no acute distress HEENT: normocephalic, atraumatic, anicteric, mucous membranes moist Respiratory/Chest: chest wall non-tender, lungs clear, normal breath sounds, no respiratory distress, no accessory muscle use Cardiovascular: normal peripheral pulses, normal rate, regular rhythm Abdomen: normal bowel sounds, soft, non tender, no organomegaly, non distended , no mass Extremities: no cyanosis, no clubbing, no edema Current Medications Medications (Trade) Dose Ordered Sig/Cori Route PRN Reason Start Time Stop Time Status Last Admin Dose Admin Acetaminophen (Tylenol) 325 mg Q4H PRN ORAL Mild Pain/Temp > 100.5 11/13/18 19:30 12/11/18 19:29 Acetaminophen (Tylenol) 500 mg Q4H PRN ORAL Moderate Pain (Pain Scale 4-6) 11/13/18 19:30 12/13/18 19:29 Acetaminophen/ Hydrocodone Bitart ([place] 5/325) 1 tab Q6H PRN ORAL Severe Pain (Pain Scale 7-10) 11/13/18 19:30 11/20/18 19:29 11/16/18 16:30 Albuterol/ Ipratropium (Albuterol/ Ipratropium) 3 ml Q4H PRN HHN Shortness of Breath 11/14/18 09:39 11/19/18 09:38 Albuterol/ Ipratropium (Albuterol/ Ipratropium) 3 ml Q6HRT HHN 11/14/18 13:00 11/19/18 12:59 11/16/18 13:12 Baclofen (Lioresal) 5 mg Q8H PRN ORAL Muscle spasm 11/13/18 22:00 12/13/18 21:59 Bisacodyl (Dulcolax) 10 mg Q24H PRN RECTAL Constipation 11/13/18 19:30 12/13/18 19:29 Clonazepam (KlonoPIN) 2 mg TID ORAL 11/14/18 09:00 11/18/18 08:59 11/16/18 09:19 Docusate Sodium (Colace) 100 mg TID ORAL 11/14/18 09:00 12/11/18 08:59 11/16/18 14:50 Finasteride (Proscar) 5 mg DAILY ORAL 11/14/18 09:00 12/11/18 08:59 11/16/18 09:17 Levothyroxine Sodium (Synthroid) 50 mcg ACBREAKFAST ORAL 11/14/18 06:30 12/14/18 06:29 11/16/18 06:03 Lorazepam (Ativan) 1 mg Q6H PRN ORAL For Anxiety 11/13/18 19:30 11/20/18 19:29 11/16/18 12:08 Magnesium Hydroxide (Mom) 30 ml HSPRN PRN ORAL Constipation 11/13/18 21:00 12/13/18 20:59 Montelukast Sodium (Singulair) 10 mg QPM ORAL 11/14/18 16:30 12/11/18 16:29 11/16/18 16:30 Multivitamins Therapeutic (Therapeutic Multivitamin) 1 ea DAILY ORAL 11/14/18 09:00 12/11/18 08:59 11/16/18 09:17 Olanzapine (ZyPREXA) 10 mg BID ORAL 11/14/18 09:00 12/11/18 08:59 11/16/18 09:19 Pantoprazole (Protonix) 40 mg BIAC ORAL 11/14/18 06:30 12/11/18 06:29 11/16/18 06:03 Prednisone (predniSONE) 30 mg DAILY ORAL 11/16/18 09:00 12/15/18 08:59 11/16/18 09:18 Salmeterol Xinafoate/ Fluticasone (Advair 100/50 Diskus) 1 puffs BID INH 11/13/18 20:00 12/13/18 19:59 Sodium Phosphate (Fleet's Sodium Phosl Enema) 133 ml Q24H PRN RECTAL Constipation 11/14/18 00:30 12/14/18 00:29 Tamsulosin HCl (Flomax) 0.4 mg BID ORAL 11/14/18 09:00 12/11/18 08:59 11/16/18 09:18 Topiramate (Topamax) 100 mg QHS ORAL 11/13/18 21:00 12/11/18 20:59 11/15/18 22:34 Trazodone HCl (Desyrel) 100 mg BEDTIME ORAL 11/13/18 21:00 12/11/18 20:59 11/15/18 22:34 Jan Caraballo MD Nov 16, 2018 16:33
--- NOTE | 2018-11-16 19:40 | NUR ---
HAND-OFF: Report given to KAROLINE Ramirez. Pt left in bed in no acute distress, a/o x 4, call light within reach, bed in low position, patent IV to left hand.
--- NOTE | 2018-11-16 19:40 | NUR ---
NURSE NOTES: Received a report from KAROLINE Burch. Pt is in stable condition. AAOX4. Able to make needs known. No respiratory distress noted. On room air. No c/o pain/discomfort. IV access is patent and intact. Bed in lowest position. Bed alarm is on. Call light within reach. Will continue to monitor.
--- NOTE | 2018-11-16 20:00 | NUR ---
NURSE NOTES: Pt refused the breathing treatment.
--- NOTE | 2018-11-16 20:48 | NUR ---
NURSE NOTES: Pt's BP is 90/62. Charge Nurse Dav made aware. Will continue to monitor the pt.
[2018-11-16] MEDS: TraZODone 100mg tab ORAL SCH (21:00)
[2018-11-16] MEDS: Topiramate 100mg tab ORAL SCH (21:00)
--- NOTE | 2018-11-16 22:15 | Progress Note ---
DATE: 11/16/2018 SUBJECTIVE: The patient is a 63-year-old male patient with COPD, confusion, and disorganized thought process. Mood labile , does require inpatient treatment at this time. MENTAL STATUS EXAMINATION: This is a 63-year-old male. Appearance is disheveled. Attitude, irritable and agitated. Affect, guarded and restricted. Intellect poor. Mood, depressed and anxious. Motor activity, psychomotor agitation. Attention span is poor. Orientation x2. Speech is pressured. Thought process, disorganized and illogical. Insight and judgment is poor. DIAGNOSIS: Schizoaffective, bipolar type. PLAN: Treat him with Zyprexa 10 mg twice a day, Topamax 100 mg at bedtime, and provide him with 20 minutes of cognitive behavioral therapy to help him identify his automatic negative thoughts and help him to covert those negative thoughts to more positive thinking to reduce depression, anxiety, and suicidality. Chart reviewed. Discussed with staff. Seen and assessed in his room. Shantanu Way M.D. DR: MONO JOB#: [id number] CC:
--- NOTE | 2018-11-16 22:47 | General Progress Note ---
Assessment/Plan Problem List: (1) Abdominal bloating ICD Codes: R14.0 - Abdominal distension (gaseous) SNOMED: 874441248 (2) UTI (urinary tract infection) ICD Codes: N39.0 - Urinary tract infection, site not specified SNOMED: 15321098 (3) Anemia ICD Codes: D64.9 - Anemia, unspecified SNOMED: 718389488 (4) COPD (chronic obstructive pulmonary disease) ICD Codes: J44.9 - Chronic obstructive pulmonary disease, unspecified SNOMED: 03240650 Qualifiers: Qualified Codes: J44.9 - Chronic obstructive pulmonary disease, unspecified (5) Pneumonia ICD Codes: J18.9 - Pneumonia, unspecified organism SNOMED: 310867660 Qualifiers: Qualified Codes: J18.1 - Lobar pneumonia, unspecified organism (6) Acute on chronic renal failure ICD Codes: N17.9 - Acute kidney failure, unspecified; N18.9 - Chronic kidney disease, unspecified SNOMED: 826188335 Qualifiers: Qualified Codes: N17.9 - Acute kidney failure, unspecified; N18.9 - Chronic kidney disease, unspecified Assessment/Plan atypical cp neg trop copd exac improving no wheezing reviewed chart abdominal pain is stable pna improving Subjective ROS Limited/Unobtainable: Yes Allergies: Coded Allergies: CHLORPROMAZINE (Unverified Allergy, Unknown, 05/24/18) CLOZAPINE (Unverified Allergy, Unknown, 05/24/18) DIVALPROEX SODIUM (Unverified Allergy, Unknown, 05/24/18) HALOPERIDOL (Unverified Allergy, Unknown, 05/24/18) SERTRALINE (Unverified Allergy, Unknown, 05/24/18) Uncoded Allergies: CLOZASIL (Allergy, Unknown, 07/23/18) Objective Last 24 Hour Vital Signs Date Time Temp Pulse Resp B/P (MAP) Pulse Ox O2 Delivery O2 Flow Rate FiO2 11/16/18 20:00 97.4 86 20 90/62 (71) 97 11/16/18 19:58 Room Air 21 11/16/18 19:58 Room Air 21 11/16/18 19:57 Room Air 21 11/16/18 19:57 Room Air 21 11/16/18 17:00 98.2 11/16/18 16:00 98.0 90 18 124/71 (88) 94 11/16/18 14:52 78 20 106/66 (79) 92 11/16/18 13:20 75 18 98 Room Air 21 11/16/18 13:12 83 18 95 Room Air 21 11/16/18 12:00 98.2 68 20 117/75 (89) 94 11/16/18 09:23 Room Air 21 11/16/18 09:23 Room Air 21 11/16/18 09:00 Room Air 11/16/18 08:00 97.5 78 19 130/76 (94) 99 11/16/18 07:50 Room Air 11/16/18 07:50 Room Air 11/16/18 04:00 97.5 71 20 112/78 (89) 97 11/16/18 01:27 Room Air 11/16/18 01:27 Room Air 11/16/18 00:00 97.0 73 20 111/76 (88) 95 Intake and Output 11/15/18 11/16/18 18:59 06:59 Intake Total 480 ml 2000 ml Balance 480 ml 2000 ml Intake Oral 480 ml 2000 ml # Voids 2 4 # Bowel Movements 1 Height (Feet): 5 Height (Inches): 10.00 Weight (Pounds): 186 Neck: supple Cardiovascular: normal rate Respiratory/Chest: lungs clear Abdomen: soft Yrn Zamudio MD Nov 16, 2018 22:47
[2018-11-17] VITALS (7 sets, daily range): BP systolic 96–106; BP diastolic 61–74
[2018-11-17] MEDS: Albuterol/Ipratropium 3ml neb HHN SCH ×4 (00:30→21:05)
[2018-11-17] MEDS: Norco 5mg/325mg tab ORAL PRN ×3 (04:46→17:04)
--- NOTE | 2018-11-17 07:37 | NUR ---
CASE MANAGEMENT:REVIEW 11/17/18 SI: COPD. 97.1 85 20 103/74 100% 0N RA IS: PREDNISONE PO QD DUONEB HHN Q6HR RTC SINGULAR PO QPM ADVAIR INH BID : TELEMETRY STATUS DCP: FROM [facility]
--- NOTE | 2018-11-17 07:50 | NUR ---
HAND-OFF: Report given to KAROLINE Gutierrez.
--- NOTE | 2018-11-17 07:52 | NUR ---
NURSE NOTES: Received patient in bed,awake, alert and oriented x3-4. Not in acute respiratory/cardiac distress. Breathing is even and unlabored. Patient is BRP with supervision. Reminded patient to call nurses when ambulating. IV intact, no s/s of infiltration. Denies any pain or discomfort. Call light and personnel items within reach. Bed is in lowest position and locked. Will continue plan of care.
[2018-11-17] MEDS: LORazepam 1mg tab ORAL PRN ×2 (08:12→15:43)
[2018-11-17] MEDS: Tamsulosin 0.4mg cap ORAL SCH ×2 (08:12→18:26)
--- NOTE | 2018-11-17 08:45 | NUR ---
NURSE NOTES: Patient asked for ativan and insisted that he can take ativan and klonopin together @ the same time. RN tried to re-educated on medications to the patient, patient did not listen to RN and said " I can take ativan and klonopin. I need my medications. I have been taking it like that." Patient yelled and screamed @RN. Patient agreed to take one of the meds first. Ativan was given. Will continue to monitor.
[2018-11-17] MEDS: Advair 100/50 Inhaler - 14 dose INH SCH ×2 (09:00→21:05)
--- NOTE | 2018-11-17 09:00 | NUR ---
NURSE NOTES: RN Tried flush IV but patient refused and said " It is ok, still working." RN explained the risks and benefits but patient refused x3.Will follow up.
--- NOTE | 2018-11-17 09:10 | NUR ---
NURSE NOTES: Patient wanted to take his klonopin. RN re-educated on med. After charge nurse and RN explained about med. He agreed to wait more.
--- NOTE | 2018-11-17 09:50 | NUR ---
NURSE NOTES: Patient completed blood transfusion without s/s of adverse reaction. V/S T-97.7, P-72, R-18, BP- 111/58. RN returned the empty PRBC bag and james to [facility]. Original paper in the chart. Addendum: 11/17/18 at 1343 by MORALES ESCOBAR RN Wrong entry
[2018-11-17] MEDS: OLANZapine 10mg tab ORAL SCH ×2 (10:47→18:26)
[2018-11-17] MEDS: Multivitamin w/Minerals tab ORAL SCH (10:48)
[2018-11-17] MEDS: Docusate 100mg cap ORAL SCH ×3 (10:48→18:26)
--- NOTE | 2018-11-17 10:48 | Pulmonology Progress Note ---
Assessment/Plan Problems: (1) COPD exacerbation (2) COPD (chronic obstructive pulmonary disease) (3) Acute on chronic renal failure (4) Anemia (5) Psychosis Assessment/Plan Optimize pulmonary hygiene/mobilize as tolerated PRN o2 Continue Advair and Singulair for the time being RTC and PRN DUOnebs D/C prednisone and observe off steroids Observe off Abx per ID Monitor volumes and renal function Tobacco cessation discussed at length again today NEEDS AN OUTPATIENT PULMONARY EVALUATION (PFT, screening CT chest) and optimization of inhaler regimen (stated hx of COPD but Advair and singulair suggestive of asthma and not optimal COPD therapy) Subjective Allergies: Coded Allergies: CHLORPROMAZINE (Unverified Allergy, Unknown, 05/24/18) CLOZAPINE (Unverified Allergy, Unknown, 05/24/18) DIVALPROEX SODIUM (Unverified Allergy, Unknown, 05/24/18) HALOPERIDOL (Unverified Allergy, Unknown, 05/24/18) SERTRALINE (Unverified Allergy, Unknown, 05/24/18) Uncoded Allergies: CLOZASIL (Allergy, Unknown, 07/23/18) Subjective AFVSS, on RA Denies SOB, no cough ,no wheezing, no FC, no CP Objective Last 24 Hour Vital Signs Date Time Temp Pulse Resp B/P (MAP) Pulse Ox O2 Delivery O2 Flow Rate FiO2 11/17/18 09:36 Room Air 11/17/18 09:36 Room Air 11/17/18 09:00 Room Air 11/17/18 08:22 74 18 98 Room Air 21 11/17/18 08:00 97.3 99 20 104/67 (79) 100 11/17/18 07:50 84 18 94 Room Air 21 11/17/18 04:00 97.1 85 20 103/74 (84) 100 11/17/18 00:40 74 18 98 Room Air 21 11/17/18 00:30 80 18 95 Room Air 21 11/17/18 00:00 97.3 88 19 100/65 (77) 94 11/16/18 21:00 Room Air 11/16/18 20:00 97.4 86 20 90/62 (71) 97 11/16/18 19:58 Room Air 21 11/16/18 19:58 Room Air 21 11/16/18 19:57 Room Air 21 11/16/18 19:57 Room Air 21 11/16/18 17:00 98.2 11/16/18 16:00 98.0 90 18 124/71 (88) 94 11/16/18 14:52 78 20 106/66 (79) 92 11/16/18 13:20 75 18 98 Room Air 21 11/16/18 13:12 83 18 95 Room Air 21 11/16/18 12:00 98.2 68 20 117/75 (89) 94 Intake and Output 11/16/18 11/17/18 19:00 07:00 Intake Total 3500 ml Balance 3500 ml Intake Oral 3500 ml # Voids 6 General Appearance: no acute distress, cachetic HEENT: normocephalic, atraumatic, anicteric, mucous membranes moist Respiratory/Chest: chest wall non-tender, lungs clear, normal breath sounds, no respiratory distress, no accessory muscle use Cardiovascular: normal peripheral pulses, normal rate, regular rhythm Abdomen: normal bowel sounds, soft, non tender, no organomegaly, non distended , no mass Extremities: no cyanosis, no clubbing, no edema Current Medications Medications (Trade) Dose Ordered Sig/Cori Route PRN Reason Start Time Stop Time Status Last Admin Dose Admin Acetaminophen (Tylenol) 325 mg Q4H PRN ORAL Mild Pain/Temp > 100.5 11/13/18 19:30 12/11/18 19:29 Acetaminophen (Tylenol) 500 mg Q4H PRN ORAL Moderate Pain (Pain Scale 4-6) 11/13/18 19:30 12/13/18 19:29 Acetaminophen/ Hydrocodone Bitart ([place] 5/325) 1 tab Q6H PRN ORAL Severe Pain (Pain Scale 7-10) 11/13/18 19:30 11/20/18 19:29 11/17/18 04:46 Albuterol/ Ipratropium (Albuterol/ Ipratropium) 3 ml Q4H PRN HHN Shortness of Breath 11/14/18 09:39 11/19/18 09:38 Albuterol/ Ipratropium (Albuterol/ Ipratropium) 3 ml Q6HRT HHN 11/14/18 13:00 11/19/18 12:59 11/17/18 07:50 Baclofen (Lioresal) 5 mg Q8H PRN ORAL Muscle spasm 11/13/18 22:00 12/13/18 21:59 Bisacodyl (Dulcolax) 10 mg Q24H PRN RECTAL Constipation 11/13/18 19:30 12/13/18 19:29 Clonazepam (KlonoPIN) 2 mg TID ORAL 11/14/18 09:00 11/18/18 08:59 11/17/18 09:25 Docusate Sodium (Colace) 100 mg TID ORAL 11/14/18 09:00 12/11/18 08:59 11/16/18 17:35 Finasteride (Proscar) 5 mg DAILY ORAL 11/14/18 09:00 12/11/18 08:59 11/17/18 08:12 Levothyroxine Sodium (Synthroid) 50 mcg ACBREAKFAST ORAL 11/14/18 06:30 12/14/18 06:29 11/17/18 06:38 Lorazepam (Ativan) 1 mg Q6H PRN ORAL For Anxiety 11/13/18 19:30 11/20/18 19:29 11/17/18 08:12 Magnesium Hydroxide (Mom) 30 ml HSPRN PRN ORAL Constipation 11/13/18 21:00 12/13/18 20:59 Montelukast Sodium (Singulair) 10 mg QPM ORAL 11/14/18 16:30 12/11/18 16:29 11/16/18 16:30 Multivitamins Therapeutic (Therapeutic Multivitamin) 1 ea DAILY ORAL 11/14/18 09:00 12/11/18 08:59 11/16/18 09:17 Olanzapine (ZyPREXA) 10 mg BID ORAL 11/14/18 09:00 12/11/18 08:59 11/16/18 17:32 Pantoprazole (Protonix) 40 mg BIAC ORAL 11/14/18 06:30 12/11/18 06:29 11/17/18 06:38 Prednisone (predniSONE) 20 mg DAILY ORAL 11/17/18 09:00 12/15/18 08:59 11/17/18 08:12 Salmeterol Xinafoate/ Fluticasone (Advair 100/50 Diskus) 1 puffs BID INH 11/13/18 20:00 12/13/18 19:59 Sodium Phosphate (Fleet's Sodium Phosl Enema) 133 ml Q24H PRN RECTAL Constipation 11/14/18 00:30 12/14/18 00:29 Tamsulosin HCl (Flomax) 0.4 mg BID ORAL 11/14/18 09:00 12/11/18 08:59 11/17/18 08:12 Topiramate (Topamax) 100 mg QHS ORAL 11/13/18 21:00 12/11/18 20:59 11/16/18 21:00 Trazodone HCl (Desyrel) 100 mg BEDTIME ORAL 11/13/18 21:00 12/11/18 20:59 11/16/18 21:00 Jan Caraballo MD Nov 17, 2018 10:47
--- NOTE | 2018-11-17 11:46 | Infectious Diseases Prog Note ---
Assessment/Plan Assessment/Plan antibiotics : none A 1. leucocytosis 2. COPD/ Asthma exacerbation 3. BPH 4. Paranoid schizophrenia 5. renal failure 6. Hypothyroidism P 1. continue off antibiotics Subjective Constitutional: Denies: fever, chills Respiratory: Denies: shortness of breath, dry cough Gastrointestinal/Abdominal: Denies: nausea, vomiting, diarrhea Musculoskeletal: Reports: pain Allergies: Coded Allergies: CHLORPROMAZINE (Unverified Allergy, Unknown, 05/24/18) CLOZAPINE (Unverified Allergy, Unknown, 05/24/18) DIVALPROEX SODIUM (Unverified Allergy, Unknown, 05/24/18) HALOPERIDOL (Unverified Allergy, Unknown, 05/24/18) SERTRALINE (Unverified Allergy, Unknown, 05/24/18) Uncoded Allergies: CLOZASIL (Allergy, Unknown, 07/23/18) Objective Vital Signs Last 24 Hour Vital Signs Date Time Temp Pulse Resp B/P (MAP) Pulse Ox O2 Delivery O2 Flow Rate FiO2 11/17/18 09:36 Room Air 11/17/18 09:36 Room Air 11/17/18 09:00 Room Air 11/17/18 08:22 74 18 98 Room Air 21 11/17/18 08:00 97.3 99 20 104/67 (79) 100 11/17/18 07:50 84 18 94 Room Air 11/17/18 04:00 97.1 85 20 103/74 (84) 100 11/17/18 00:40 74 18 98 Room Air 11/17/18 00:30 80 18 95 Room Air 11/17/18 00:00 97.3 88 19 100/65 (77) 94 11/16/18 21:00 Room Air 11/16/18 20:00 97.4 86 20 90/62 (71) 97 11/16/18 19:58 Room Air 21 11/16/18 19:58 Room Air 21 11/16/18 19:57 Room Air 21 11/16/18 19:57 Room Air 21 11/16/18 17:00 98.2 11/16/18 16:00 98.0 90 18 124/71 (88) 94 11/16/18 14:52 78 20 106/66 (79) 92 11/16/18 13:20 75 18 98 Room Air 21 11/16/18 13:12 83 18 95 Room Air 21 11/16/18 12:00 98.2 68 20 117/75 (89) 94 Height (Feet): 5 Height (Inches): 10.00 Weight (Pounds): 186 Respiratory/Chest: lungs clear Cardiovascular: normal rate, regular rhythm, no gallop/murmur Abdomen: soft, non tender Extremities: no edema Current Medications Medications (Trade) Dose Ordered Sig/Cori Route PRN Reason Start Time Stop Time Status Last Admin Dose Admin Acetaminophen (Tylenol) 325 mg Q4H PRN ORAL Mild Pain/Temp > 100.5 11/13/18 19:30 12/11/18 19:29 Acetaminophen (Tylenol) 500 mg Q4H PRN ORAL Moderate Pain (Pain Scale 4-6) 11/13/18 19:30 12/13/18 19:29 Acetaminophen/ Hydrocodone Bitart ([place] 5/325) 1 tab Q6H PRN ORAL Severe Pain (Pain Scale 7-10) 11/13/18 19:30 11/20/18 19:29 11/17/18 10:47 Albuterol/ Ipratropium (Albuterol/ Ipratropium) 3 ml Q4H PRN HHN Shortness of Breath 11/14/18 09:39 11/19/18 09:38 Albuterol/ Ipratropium (Albuterol/ Ipratropium) 3 ml Q6HRT HHN 11/14/18 13:00 11/19/18 12:59 11/17/18 07:50 Baclofen (Lioresal) 5 mg Q8H PRN ORAL Muscle spasm 11/13/18 22:00 12/13/18 21:59 Bisacodyl (Dulcolax) 10 mg Q24H PRN RECTAL Constipation 11/13/18 19:30 12/13/18 19:29 Clonazepam (KlonoPIN) 2 mg TID ORAL 11/14/18 09:00 11/18/18 08:59 11/17/18 09:25 Docusate Sodium (Colace) 100 mg TID ORAL 11/14/18 09:00 12/11/18 08:59 11/17/18 10:48 Finasteride (Proscar) 5 mg DAILY ORAL 11/14/18 09:00 12/11/18 08:59 11/17/18 08:12 Levothyroxine Sodium (Synthroid) 50 mcg ACBREAKFAST ORAL 11/14/18 06:30 12/14/18 06:29 11/17/18 06:38 Lorazepam (Ativan) 1 mg Q6H PRN ORAL For Anxiety 11/13/18 19:30 11/20/18 19:29 11/17/18 08:12 Magnesium Hydroxide (Mom) 30 ml HSPRN PRN ORAL Constipation 11/13/18 21:00 12/13/18 20:59 Montelukast Sodium (Singulair) 10 mg QPM ORAL 11/14/18 16:30 12/11/18 16:29 11/16/18 16:30 Multivitamins Therapeutic (Therapeutic Multivitamin) 1 ea DAILY ORAL 11/14/18 09:00 12/11/18 08:59 11/17/18 10:48 Olanzapine (ZyPREXA) 10 mg BID ORAL 11/14/18 09:00 12/11/18 08:59 11/17/18 10:47 Pantoprazole (Protonix) 40 mg BIAC ORAL 11/14/18 06:30 12/11/18 06:29 11/17/18 06:38 Salmeterol Xinafoate/ Fluticasone (Advair 100/50 Diskus) 1 puffs BID INH 11/13/18 20:00 12/13/18 19:59 Sodium Phosphate (Fleet's Sodium Phosl Enema) 133 ml Q24H PRN RECTAL Constipation 11/14/18 00:30 12/14/18 00:29 Tamsulosin HCl (Flomax) 0.4 mg BID ORAL 11/14/18 09:00 12/11/18 08:59 11/17/18 08:12 Topiramate (Topamax) 100 mg QHS ORAL 11/13/18 21:00 12/11/18 20:59 11/16/18 21:00 Trazodone HCl (Desyrel) 100 mg BEDTIME ORAL 11/13/18 21:00 12/11/18 20:59 11/16/18 21:00 Ralph Pozo MD Nov 17, 2018 11:46
--- NOTE | 2018-11-17 12:58 | Nephrology Progress Note ---
Assessment/Plan Problem List: (1) Acute on chronic renal failure (2) Anemia (3) Hypothyroidism (4) COPD (chronic obstructive pulmonary disease) Assessment Elevated Cr : CKD vs Acute COPD / Pneumonia Anemia Psych history HypoThyroidism Plan 500 cc D5W DC folate- DC Motrin Urine studies Avoid Nephrotoxics Keep BP and BS under control Taper steroids as possible Flomax TSH low- down on synthroid DC ?? Subjective ROS Limited/Unobtainable: No Constitutional: Reports: malaise Objective Objective Last 24 Hour Vital Signs Date Time Temp Pulse Resp B/P (MAP) Pulse Ox O2 Delivery O2 Flow Rate FiO2 11/17/18 12:00 97.5 78 20 96/62 (73) 100 11/17/18 09:36 Room Air 11/17/18 09:36 Room Air 11/17/18 09:00 Room Air 11/17/18 08:22 74 18 98 Room Air 21 11/17/18 08:00 97.3 99 20 104/67 (79) 100 11/17/18 07:50 84 18 94 Room Air 21 11/17/18 04:00 97.1 85 20 103/74 (84) 100 11/17/18 00:40 74 18 98 Room Air 21 11/17/18 00:30 80 18 95 Room Air 21 11/17/18 00:00 97.3 88 19 100/65 (77) 94 11/16/18 21:00 Room Air 11/16/18 20:00 97.4 86 20 90/62 (71) 97 11/16/18 19:58 Room Air 21 11/16/18 19:58 Room Air 21 11/16/18 19:57 Room Air 21 11/16/18 19:57 Room Air 21 11/16/18 17:00 98.2 11/16/18 16:00 98.0 90 18 124/71 (88) 94 11/16/18 14:52 78 20 106/66 (79) 92 11/16/18 13:20 75 18 98 Room Air 21 11/16/18 13:12 83 18 95 Room Air 21 Intake and Output 11/16/18 11/17/18 19:00 07:00 Intake Total 3500 ml Balance 3500 ml Intake Oral 3500 ml # Voids 6 Height (Feet): 5 Height (Inches): 10.00 Weight (Pounds): 186 General Appearance: no apparent distress Objective no change Gamal Garcia MD Nov 17, 2018 12:58
[2018-11-17] MEDS: Montelukast 10mg tablet ORAL SCH (15:47)
--- NOTE | 2018-11-17 15:51 | Cardiology Report ---
APPROVED REPORT EKG Measurement Heart [id number] Normal sinus rhythm Normal ECG
--- NOTE | 2018-11-17 17:38 | NUR ---
NURSE NOTES: Patient requested for discharge. RN spoke to Dr. Zamudio and Dr. Zamudio said " It is up to Dr. Villafuerte, that patient is Dr. Villafuerte's patient. Please, change attending to Dr. Villafuerte. RN faxed a request to admitting.
--- NOTE | 2018-11-17 18:30 | NUR ---
NURSE NOTES: Realyed Dr. Villafuerte that patient wants to be discharged back to SNF. Dr. Villafuerte said he would see the patient in am and clear PT with all consults. Will follow up and patient aware.
--- NOTE | 2018-11-17 19:00 | NUR ---
HAND-OFF: Report given to
--- NOTE | 2018-11-17 19:29 | NUR ---
NURSE NOTES: Received patient asleep,comfortable,no SOB noted.
[2018-11-17] MEDS: TraZODone 100mg tab ORAL SCH (21:06)
[2018-11-17] MEDS: Topiramate 100mg tab ORAL SCH (21:06)
--- NOTE | 2018-11-17 21:45 | Progress Note ---
DATE: 11/17/2018 NOTE: "POOR AUDIO QUALITY" SUBJECTIVE: The patient is a 63-year-old male patient with COPD, but this patient still has some mood lability, high levels of anxiety, and depression, worsened by stress of his medical illness. That is why, his attending physician has requested daily psychiatric consultation. He does have activity. Diagnosis is schizoaffective, bipolar type and extremely mood labile and agitated. MENTAL STATUS EXAMINATION: This is a 63-year-old male. Appearance is disheveled. Attitude, irritable and agitated. Affect, guarded and restricted. Intellect poor. Mood, depressed and anxious. Motor activity, psychomotor agitation. Attention span is poor. Orientation x2. Speech is pressured. Thought process, disorganized and illogical. Insight and judgment is poor. DIAGNOSIS: Schizoaffective, bipolar type. PLAN: Treat him with Zyprexa 10 mg twice a day and Topamax 100 mg nightly. Provided him with 20 minutes of cognitive behavioral therapy to help him identify his automatic negative thoughts and help him to covert those negative thoughts to more positive thoughts to reduce depression, anxiety, and suicidality. Seen and assessed at bedside. Chart reviewed. Discussed with staff. Seen and assessed in his room. Twenty minutes of cognitive behavioral therapy provided. Shantanu Way M.D. DR: LAURA JOB#: [id number] CC:
--- NOTE | 2018-11-17 23:21 | General Progress Note ---
Assessment/Plan Problem List: (1) Abdominal bloating ICD Codes: R14.0 - Abdominal distension (gaseous) SNOMED: 678076993 (2) UTI (urinary tract infection) ICD Codes: N39.0 - Urinary tract infection, site not specified SNOMED: 58011575 (3) Anemia ICD Codes: D64.9 - Anemia, unspecified SNOMED: 537039210 (4) COPD (chronic obstructive pulmonary disease) ICD Codes: J44.9 - Chronic obstructive pulmonary disease, unspecified SNOMED: 99686853 Qualifiers: Qualified Codes: J44.9 - Chronic obstructive pulmonary disease, unspecified (5) Pneumonia ICD Codes: J18.9 - Pneumonia, unspecified organism SNOMED: 351478439 Qualifiers: Qualified Codes: J18.1 - Lobar pneumonia, unspecified organism (6) Acute on chronic renal failure ICD Codes: N17.9 - Acute kidney failure, unspecified; N18.9 - Chronic kidney disease, unspecified SNOMED: 657547714 Qualifiers: Qualified Codes: N17.9 - Acute kidney failure, unspecified; N18.9 - Chronic kidney disease, unspecified Status: progressing Assessment/Plan no acute events reviewed chart and labs neg trop copd exac improving abdominal pain is stable pna improving Subjective ROS Limited/Unobtainable: Yes Allergies: Coded Allergies: CHLORPROMAZINE (Unverified Allergy, Unknown, 05/24/18) CLOZAPINE (Unverified Allergy, Unknown, 05/24/18) DIVALPROEX SODIUM (Unverified Allergy, Unknown, 05/24/18) HALOPERIDOL (Unverified Allergy, Unknown, 05/24/18) SERTRALINE (Unverified Allergy, Unknown, 05/24/18) Uncoded Allergies: CLOZASIL (Allergy, Unknown, 07/23/18) Objective Last 24 Hour Vital Signs Date Time Temp Pulse Resp B/P (MAP) Pulse Ox O2 Delivery O2 Flow Rate FiO2 11/17/18 21:05 Room Air 21 11/17/18 21:05 Room Air 21 11/17/18 21:05 Room Air 21 11/17/18 21:05 Room Air 21 11/17/18 20:36 Room Air 11/17/18 19:56 97.9 80 17 102/65 (77) 97 11/17/18 16:00 98.8 61 18 101/65 (77) 96 11/17/18 13:53 83 18 99 Room Air 21 11/17/18 13:45 85 18 95 Room Air 21 11/17/18 12:00 97.5 78 20 96/62 (73) 100 11/17/18 09:36 Room Air 11/17/18 09:36 Room Air 11/17/18 09:00 Room Air 11/17/18 08:22 74 18 98 Room Air 21 11/17/18 08:00 97.3 99 20 104/67 (79) 100 11/17/18 07:50 84 18 94 Room Air 21 11/17/18 04:00 97.1 85 20 103/74 (84) 100 11/17/18 00:40 74 18 98 Room Air 21 11/17/18 00:30 80 18 95 Room Air 21 11/17/18 00:00 97.3 88 19 100/65 (77) 94 Intake and Output 11/16/18 11/17/18 18:59 06:59 Intake Total 3500 ml Balance 3500 ml Intake Oral 3500 ml # Voids 6 Height (Feet): 5 Height (Inches): 10.00 Weight (Pounds): 186 General Appearance: confused Cardiovascular: normal rate Respiratory/Chest: lungs clear Abdomen: soft Yrn Zamudio MD Nov 17, 2018 23:21
[2018-11-18] MEDS: Albuterol/Ipratropium 3ml neb HHN SCH ×4 (01:38→20:17)
[2018-11-18 04:00] VITALS: BP 104/68
--- NOTE | 2018-11-18 07:24 | NUR ---
HAND-OFF: Report given to Davin Bashir RN.
--- NOTE | 2018-11-18 07:29 | NUR ---
NURSE NOTES: Received patient in bed,awake, alert and oriented x3-4. Not in acute respiratory/cardiac distress. Breathing is even and unlabored. Patient is BRP with supervision. Reminded patient to call nurses when ambulating. Denies any pain or discomfort. Call light and personnel items within reach. Bed is in lowest position and locked. Will continue plan of care.
[2018-11-18] MEDS: Norco 5mg/325mg tab ORAL PRN ×3 (07:40→20:39)
[2018-11-18 08:00] VITALS: BP 113/71
[2018-11-18] MEDS: Advair 100/50 Inhaler - 14 dose INH SCH ×2 (08:01→18:00)
--- NOTE | 2018-11-18 09:00 | NUR ---
NURSE NOTES: Patient refused new IV insertion and dressing change and said "Do not touch the IV or my dressing on my ear.You do not have to change them." RN explained the risks and benefits. Patient understood but refused x3.
--- NOTE | 2018-11-18 09:24 | General Progress Note ---
Assessment/Plan Problem List: (1) ATN (acute tubular necrosis) ICD Codes: N17.0 - Acute kidney failure with tubular necrosis SNOMED: 55982638 (2) Asthma ICD Codes: J45.909 - Unspecified asthma, uncomplicated SNOMED: 816881939 (3) COPD (chronic obstructive pulmonary disease) ICD Codes: J44.9 - Chronic obstructive pulmonary disease, unspecified SNOMED: 08355393 Qualifiers: Qualified Codes: J44.9 - Chronic obstructive pulmonary disease, unspecified (4) Anemia ICD Codes: D64.9 - Anemia, unspecified SNOMED: 355992727 (5) Psychosis ICD Codes: F29 - Unspecified psychosis not due to a substance or known physiological condition SNOMED: 73104163 (6) COPD exacerbation ICD Codes: J44.1 - Chronic obstructive pulmonary disease with (acute) exacerbation SNOMED: 631394061 Status: unchanged Assessment/Plan abx o2 pulm tx bp control cbc bmp am Subjective Constitutional: Reports: weakness Allergies: Coded Allergies: CHLORPROMAZINE (Unverified Allergy, Unknown, 05/24/18) CLOZAPINE (Unverified Allergy, Unknown, 05/24/18) DIVALPROEX SODIUM (Unverified Allergy, Unknown, 05/24/18) HALOPERIDOL (Unverified Allergy, Unknown, 05/24/18) SERTRALINE (Unverified Allergy, Unknown, 05/24/18) Uncoded Allergies: CLOZASIL (Allergy, Unknown, 07/23/18) All Systems: reviewed and negative except above Subjective sleepy calm Objective Last 24 Hour Vital Signs Date Time Temp Pulse Resp B/P (MAP) Pulse Ox O2 Delivery O2 Flow Rate FiO2 11/18/18 09:00 Room Air 11/18/18 08:10 92 20 99 Room Air 21 11/18/18 08:02 Room Air 21 11/18/18 08:01 Room Air 21 11/18/18 08:00 91 20 96 Room Air 21 11/18/18 08:00 97.0 94 18 113/71 (85) 97 11/18/18 04:00 98.0 74 18 104/68 (80) 97 11/18/18 01:46 72 18 98 Room Air 21 11/18/18 01:38 93 20 98 Room Air 21 11/17/18 23:59 98.1 77 17 106/61 (76) 97 1/5/19 21:05 Room Air 21 11/17/18 21:05 Room Air 21 11/17/18 21:05 Room Air 21 11/17/18 21:05 Room Air 21 11/17/18 20:36 Room Air 11/17/18 19:56 97.9 80 17 102/65 (77) 97 11/17/18 16:00 98.8 61 18 101/65 (77) 96 11/17/18 13:53 83 18 99 Room Air 21 11/17/18 13:45 85 18 95 Room Air 21 11/17/18 12:00 97.5 78 20 96/62 (73) 100 11/17/18 09:36 Room Air 11/17/18 09:36 Room Air Intake and Output 11/17/18 11/18/18 19:00 07:00 # Voids 3 Height (Feet): 5 Height (Inches): 10.00 Weight (Pounds): 186 General Appearance: lethargic EENT: normal ENT inspection Neck: normal alignment Cardiovascular: normal peripheral pulses, normal rate, regular rhythm Respiratory/Chest: chest wall non-tender, decreased breath sounds Abdomen: normal bowel sounds, non tender, soft Extremities: normal inspection Edema: no edema noted Arm (L), no edema noted Arm (R), no edema noted Leg (L), no edema noted Leg (R), no edema noted Pedal (L), no edema noted Pedal (R), no edema noted Generalized Neurologic: motor weakness Skin: normal pigmentation, warm/dry Mansoor Villafuerte DO Nov 18, 2018 09:24
[2018-11-18] MEDS: Multivitamin w/Minerals tab ORAL SCH (09:35)
[2018-11-18] MEDS: Tamsulosin 0.4mg cap ORAL SCH ×2 (09:35→17:54)
[2018-11-18] MEDS: Docusate 100mg cap ORAL SCH ×3 (09:35→17:54)
[2018-11-18] MEDS: OLANZapine 10mg tab ORAL SCH ×2 (09:35→17:54)
--- NOTE | 2018-11-18 10:57 | NUR ---
RD ASSESSMENT & RECOMMENDATIONS SEE CARE ACTIVITY FOR COMPLETE ASSESSMENT DAILY ESTIMATED NEEDS: Needs based on Pulmonary 77.7kg adj 25-30 kcals/kg total kcals 1-1.5 g protein/kg 78-117 g total protein 25-30 mL/kg total fluid mLs NUTRITION DIAGNOSIS: * Altered nutrition related lab values R/T clinical condition as evidenced by elev creat (20), elev Na (147) CURRENT DIET:Regular, vegetarian PO DIET RECOMMENDATIONS: Low Na/ Vegetarian / texture as tolerated ADDITIONAL RECOMMENDATIONS: * Obtain a standing weight as able * Monitor BG w/ solumedrol * Hydration per MD (elev Na, elev BUN)
--- NOTE | 2018-11-18 10:59 | Nephrology Progress Note ---
Assessment/Plan Problem List: (1) Acute on chronic renal failure (2) Anemia (3) Hypothyroidism (4) COPD (chronic obstructive pulmonary disease) Assessment Elevated Cr : CKD vs Acute COPD / Pneumonia Anemia Psych history HypoThyroidism Plan DC folate- DC Motrin Urine studies Avoid Nephrotoxics Keep BP and BS under control Taper steroids as possible Flomax TSH low- down on synthroid DC ?? Subjective ROS Limited/Unobtainable: No Constitutional: Reports: malaise Objective Objective Last 24 Hour Vital Signs Date Time Temp Pulse Resp B/P (MAP) Pulse Ox O2 Delivery O2 Flow Rate FiO2 11/18/18 09:00 Room Air 11/18/18 08:10 92 20 99 Room Air 21 11/18/18 08:02 Room Air 21 11/18/18 08:01 Room Air 21 11/18/18 08:00 91 20 96 Room Air 21 11/18/18 08:00 97.0 94 18 113/71 (85) 97 11/18/18 04:00 98.0 74 18 104/68 (80) 97 11/18/18 01:46 72 18 98 Room Air 21 11/18/18 01:38 93 20 98 Room Air 21 11/17/18 23:59 98.1 77 17 106/61 (76) 97 11/17/18 21:05 Room Air 21 11/17/18 21:05 Room Air 21 11/17/18 21:05 Room Air 21 11/17/18 21:05 Room Air 21 11/17/18 20:36 Room Air 11/17/18 19:56 97.9 80 17 102/65 (77) 97 11/17/18 16:00 98.8 61 18 101/65 (77) 96 11/17/18 13:53 83 18 99 Room Air 21 11/17/18 13:45 85 18 95 Room Air 11/17/18 12:00 97.5 78 20 96/62 (73) 100 Intake and Output 11/17/18 11/18/18 19:00 07:00 # Voids 3 Height (Feet): 5 Height (Inches): 10.00 Weight (Pounds): 186 General Appearance: no apparent distress Objective no change Gamal Garcia MD Nov 18, 2018 10:59
--- NOTE | 2018-11-18 11:14 | Pulmonology Progress Note ---
Assessment/Plan Problems: (1) COPD exacerbation (2) COPD (chronic obstructive pulmonary disease) (3) Acute on chronic renal failure (4) Anemia (5) Psychosis Assessment/Plan Optimize pulmonary hygiene/mobilize as tolerated PRN o2 Continue Advair and Singulair for the time being RTC and PRN DUOnebs Oserve off steroids Observe off Abx per ID Monitor volumes and renal function Tobacco cessation discussed at length again today NEEDS AN OUTPATIENT PULMONARY EVALUATION (PFT, screening CT chest) and optimization of inhaler regimen (stated hx of COPD but Advair and singulair suggestive of asthma and not optimal COPD therapy) Subjective Allergies: Coded Allergies: CHLORPROMAZINE (Unverified Allergy, Unknown, 05/24/18) CLOZAPINE (Unverified Allergy, Unknown, 05/24/18) DIVALPROEX SODIUM (Unverified Allergy, Unknown, 05/24/18) HALOPERIDOL (Unverified Allergy, Unknown, 05/24/18) SERTRALINE (Unverified Allergy, Unknown, 05/24/18) Uncoded Allergies: CLOZASIL (Allergy, Unknown, 07/23/18) Subjective AFVSS, on RA Denies SOB, no cough ,no wheezing, no FC, no CP Objective Last 24 Hour Vital Signs Date Time Temp Pulse Resp B/P (MAP) Pulse Ox O2 Delivery O2 Flow Rate FiO2 11/18/18 09:00 Room Air 11/18/18 08:10 92 20 99 Room Air 11/18/18 08:02 Room Air 11/18/18 08:01 Room Air 11/18/18 08:00 91 20 96 Room Air 11/18/18 08:00 97.0 94 18 113/71 (85) 97 11/18/18 04:00 98.0 74 18 104/68 (80) 97 11/18/18 01:46 72 18 98 Room Air 21 11/18/18 01:38 93 20 98 Room Air 21 11/17/18 23:59 98.1 77 17 106/61 (76) 97 11/17/18 21:05 Room Air 21 11/17/18 21:05 Room Air 21 11/17/18 21:05 Room Air 21 11/17/18 21:05 Room Air 21 11/17/18 20:36 Room Air 11/17/18 19:56 97.9 80 17 102/65 (77) 97 11/17/18 16:00 98.8 61 18 101/65 (77) 96 11/17/18 13:53 83 18 99 Room Air 21 11/17/18 13:45 85 18 95 Room Air 21 11/17/18 12:00 97.5 78 20 96/62 (73) 100 Intake and Output 11/17/18 11/18/18 19:00 07:00 # Voids 3 General Appearance: no acute distress, cachetic HEENT: normocephalic, atraumatic, anicteric, mucous membranes moist Respiratory/Chest: chest wall non-tender, lungs clear, normal breath sounds, no respiratory distress, no accessory muscle use Cardiovascular: normal peripheral pulses, normal rate, regular rhythm Abdomen: normal bowel sounds, soft, non tender, no organomegaly, non distended , no mass Extremities: no cyanosis, no clubbing, no edema Current Medications Medications (Trade) Dose Ordered Sig/Cori Route PRN Reason Start Time Stop Time Status Last Admin Dose Admin Acetaminophen (Tylenol) 325 mg Q4H PRN ORAL Mild Pain/Temp > 100.5 11/13/18 19:30 12/11/18 19:29 Acetaminophen (Tylenol) 500 mg Q4H PRN ORAL Moderate Pain (Pain Scale 4-6) 11/13/18 19:30 12/13/18 19:29 Acetaminophen/ Hydrocodone Bitart ([place] 5/325) 1 tab Q6H PRN ORAL Severe Pain (Pain Scale 7-10) 11/13/18 19:30 11/20/18 19:29 11/18/18 07:40 Albuterol/ Ipratropium (Albuterol/ Ipratropium) 3 ml Q4H PRN HHN Shortness of Breath 11/14/18 09:39 11/19/18 09:38 Albuterol/ Ipratropium (Albuterol/ Ipratropium) 3 ml Q6HRT HHN 11/14/18 13:00 11/19/18 12:59 11/18/18 08:00 Baclofen (Lioresal) 5 mg Q8H PRN ORAL Muscle spasm 11/13/18 22:00 12/13/18 21:59 Bisacodyl (Dulcolax) 10 mg Q24H PRN RECTAL Constipation 11/13/18 19:30 12/13/18 19:29 Clonazepam (KlonoPIN) 2 mg TID ORAL 11/18/18 09:15 11/25/18 09:14 11/18/18 09:35 Docusate Sodium (Colace) 100 mg TID ORAL 11/14/18 09:00 12/11/18 08:59 11/18/18 09:35 Finasteride (Proscar) 5 mg DAILY ORAL 11/14/18 09:00 12/11/18 08:59 11/18/18 09:35 Levothyroxine Sodium (Synthroid) 50 mcg ACBREAKFAST ORAL 11/14/18 06:30 12/14/18 06:29 11/18/18 05:35 Lorazepam (Ativan) 1 mg Q6H PRN ORAL For Anxiety 11/13/18 19:30 11/20/18 19:29 11/17/18 15:43 Magnesium Hydroxide (Mom) 30 ml HSPRN PRN ORAL Constipation 11/13/18 21:00 12/13/18 20:59 Montelukast Sodium (Singulair) 10 mg QPM ORAL 11/14/18 16:30 12/11/18 16:29 11/17/18 15:47 Multivitamins Therapeutic (Therapeutic Multivitamin) 1 ea DAILY ORAL 11/14/18 09:00 12/11/18 08:59 11/18/18 09:35 Olanzapine (ZyPREXA) 10 mg BID ORAL 11/14/18 09:00 12/11/18 08:59 11/18/18 09:35 Pantoprazole (Protonix) 40 mg BIAC ORAL 11/14/18 06:30 12/11/18 06:29 11/18/18 05:35 Salmeterol Xinafoate/ Fluticasone (Advair 100/50 Diskus) 1 puffs BID INH 11/13/18 20:00 12/13/18 19:59 Sodium Phosphate (Fleet's Sodium Phosl Enema) 133 ml Q24H PRN RECTAL Constipation 11/14/18 00:30 12/14/18 00:29 Tamsulosin HCl (Flomax) 0.4 mg BID ORAL 11/14/18 09:00 12/11/18 08:59 11/18/18 09:35 Topiramate (Topamax) 100 mg QHS ORAL 11/13/18 21:00 12/11/18 20:59 11/17/18 21:06 Trazodone HCl (Desyrel) 100 mg BEDTIME ORAL 11/13/18 21:00 12/11/18 20:59 11/17/18 21:06 Jan Caraballo MD Nov 18, 2018 11:14
[2018-11-18 12:00] VITALS: BP 102/66
--- NOTE | 2018-11-18 12:12 | Infectious Diseases Prog Note ---
Assessment/Plan Assessment/Plan A: COPD/ Asthma exacerbation CKD BPH Paranoid schizophrenia Hypothyroidism MRSA colonization P; Observe off antibiotic Subjective ROS Limited/Unobtainable: No Constitutional: Reports: no symptoms Respiratory: Reports: no symptoms Cardiovascular: Reports: no symptoms Gastrointestinal/Abdominal: Reports: no symptoms Genitourinary: Reports: no symptoms Allergies: Coded Allergies: CHLORPROMAZINE (Unverified Allergy, Unknown, 05/24/18) CLOZAPINE (Unverified Allergy, Unknown, 05/24/18) DIVALPROEX SODIUM (Unverified Allergy, Unknown, 05/24/18) HALOPERIDOL (Unverified Allergy, Unknown, 05/24/18) SERTRALINE (Unverified Allergy, Unknown, 05/24/18) Uncoded Allergies: CLOZASIL (Allergy, Unknown, 07/23/18) Objective Vital Signs Last 24 Hour Vital Signs Date Time Temp Pulse Resp B/P (MAP) Pulse Ox O2 Delivery O2 Flow Rate FiO2 11/18/18 09:00 Room Air 11/18/18 08:10 92 20 99 Room Air 11/18/18 08:02 Room Air 21 11/18/18 08:01 Room Air 21 11/18/18 08:00 91 20 96 Room Air 21 11/18/18 08:00 97.0 94 18 113/71 (85) 97 11/18/18 04:00 98.0 74 18 104/68 (80) 97 11/18/18 01:46 72 18 98 Room Air 21 11/18/18 01:38 93 20 98 Room Air 21 11/17/18 23:59 98.1 77 17 106/61 (76) 97 11/17/18 21:05 Room Air 21 11/17/18 21:05 Room Air 21 11/17/18 21:05 Room Air 21 11/17/18 21:05 Room Air 21 11/17/18 20:36 Room Air 11/17/18 19:56 97.9 80 17 102/65 (77) 97 11/17/18 16:00 98.8 61 18 101/65 (77) 96 11/17/18 13:53 83 18 99 Room Air 21 11/17/18 13:45 85 18 95 Room Air 21 Height (Feet): 5 Height (Inches): 10.00 Weight (Pounds): 186 General Appearance: no acute distress HEENT: mucous membranes moist Respiratory/Chest: lungs clear Cardiovascular: normal rate Abdomen: soft, non tender Skin: ulcers, other - right ear 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: alert, oriented x 3, responsive Current Medications Medications (Trade) Dose Ordered Sig/Cori Route PRN Reason Start Time Stop Time Status Last Admin Dose Admin Acetaminophen (Tylenol) 325 mg Q4H PRN ORAL Mild Pain/Temp > 100.5 11/13/18 19:30 12/11/18 19:29 Acetaminophen (Tylenol) 500 mg Q4H PRN ORAL Moderate Pain (Pain Scale 4-6) 11/13/18 19:30 12/13/18 19:29 Acetaminophen/ Hydrocodone Bitart ([place] 5/325) 1 tab Q6H PRN ORAL Severe Pain (Pain Scale 7-10) 11/13/18 19:30 11/20/18 19:29 11/18/18 07:40 Albuterol/ Ipratropium (Albuterol/ Ipratropium) 3 ml Q4H PRN HHN Shortness of Breath 11/14/18 09:39 11/19/18 09:38 Albuterol/ Ipratropium (Albuterol/ Ipratropium) 3 ml Q6HRT HHN 11/14/18 13:00 11/19/18 12:59 11/18/18 08:00 Baclofen (Lioresal) 5 mg Q8H PRN ORAL Muscle spasm 11/13/18 22:00 12/13/18 21:59 Bisacodyl (Dulcolax) 10 mg Q24H PRN RECTAL Constipation 11/13/18 19:30 12/13/18 19:29 Clonazepam (KlonoPIN) 2 mg TID ORAL 11/18/18 09:15 11/25/18 09:14 11/18/18 09:35 Docusate Sodium (Colace) 100 mg TID ORAL 11/14/18 09:00 12/11/18 08:59 11/18/18 09:35 Finasteride (Proscar) 5 mg DAILY ORAL 11/14/18 09:00 12/11/18 08:59 11/18/18 09:35 Levothyroxine Sodium (Synthroid) 50 mcg ACBREAKFAST ORAL 11/14/18 06:30 12/14/18 06:29 11/18/18 05:35 Lorazepam (Ativan) 1 mg Q6H PRN ORAL For Anxiety 11/13/18 19:30 11/20/18 19:29 11/17/18 15:43 Magnesium Hydroxide (Mom) 30 ml HSPRN PRN ORAL Constipation 11/13/18 21:00 12/13/18 20:59 Montelukast Sodium (Singulair) 10 mg QPM ORAL 11/14/18 16:30 12/11/18 16:29 11/17/18 15:47 Multivitamins Therapeutic (Therapeutic Multivitamin) 1 ea DAILY ORAL 11/14/18 09:00 12/11/18 08:59 11/18/18 09:35 Olanzapine (ZyPREXA) 10 mg BID ORAL 11/14/18 09:00 12/11/18 08:59 11/18/18 09:35 Pantoprazole (Protonix) 40 mg BIAC ORAL 11/14/18 06:30 12/11/18 06:29 11/18/18 05:35 Salmeterol Xinafoate/ Fluticasone (Advair 100/50 Diskus) 1 puffs BID INH 11/13/18 20:00 12/13/18 19:59 Sodium Phosphate (Fleet's Sodium Phosl Enema) 133 ml Q24H PRN RECTAL Constipation 11/14/18 00:30 12/14/18 00:29 Tamsulosin HCl (Flomax) 0.4 mg BID ORAL 11/14/18 09:00 12/11/18 08:59 11/18/18 09:35 Topiramate (Topamax) 100 mg QHS ORAL 11/13/18 21:00 12/11/18 20:59 11/17/18 21:06 Trazodone HCl (Desyrel) 100 mg BEDTIME ORAL 11/13/18 21:00 12/11/18 20:59 11/17/18 21:06 Hank Diaz MD Nov 18, 2018 12:12
--- NOTE | 2018-11-18 14:50 | NUR ---
NURSE NOTES: Per Dr. Villafuerte he needs to check patient's lab to decide for discharge. Labs for tomorrow, patient made aware.
[2018-11-18 16:00] VITALS: BP 111/57
[2018-11-18] MEDS: Montelukast 10mg tablet ORAL SCH (16:36)
[2018-11-18] MEDS: LORazepam 1mg tab ORAL PRN (16:36)
--- NOTE | 2018-11-18 18:06 | NUR ---
NURSE NOTES: Patient is calm and cooperative, RN offered dressing change on right ear and new IV insertion. Patient refused and he did not want RN to touch the dressing and IV. Explained the risks and benefits.
--- NOTE | 2018-11-18 19:00 | Progress Note ---
DATE: 11/18/2018 SUBJECTIVE: This is a 63-year-old male patient with COPD, but he continues to be confused, disorganized, mood labile. No logical plan for his own self-care , but he still feels anxiety is relatively controlled on current dose of medication as well as mood lability. MENTAL STATUS EXAMINATION: A 63-year-old male. Appearance is disheveled. Attitude, irritable and agitated. Affect, guarded and restricted. Intellect poor. Mood depressed and anxious. Motor activity, psychomotor agitation. Attention span is poor. Orientation x2. Speech is pressured. Thought process, disorganized and illogical. Insight and judgment is poor. DIAGNOSIS: Schizoaffective, bipolar type. PLAN: Treat him with Topamax 100 mg at bedtime and Zyprexa 10 mg twice a day, . Provide him with 20 minutes of cognitive behavioral therapy to help him identify his automatic negative thoughts and help him to convert those negative thoughts to more positive thoughts to reduce depression, anxiety, and suicidality. Chart reviewed. Discussed with staff. Seen and assessed in his room. He is psychiatrically cleared for discharge. Shantanu Way M.D. DR: Gentry JOB#: [id number] CC:
--- NOTE | 2018-11-18 19:11 | NUR ---
HAND-OFF: Report given to
--- NOTE | 2018-11-18 19:27 | NUR ---
NURSE NOTES: Received patient awake,alert,verbal,resting in bed comfortably without complaints.
[2018-11-18 20:00] VITALS: BP 103/69
[2018-11-18] MEDS: Topiramate 100mg tab ORAL SCH (20:39)
[2018-11-18] MEDS: TraZODone 100mg tab ORAL SCH (20:39)
[2018-11-18 23:52] VITALS: BP 106/71
[2018-11-19] MEDS: LORazepam 1mg tab ORAL PRN ×3 (00:14→14:26)
[2018-11-19] MEDS: Albuterol/Ipratropium 3ml neb HHN SCH ×2 (01:00→07:44)
[2018-11-19] MEDS: Norco 5mg/325mg tab ORAL PRN ×4 (02:49→21:23)
[2018-11-19 04:00] VITALS: BP 101/62
--- NOTE | 2018-11-19 07:31 | NUR ---
HAND-OFF: Report given to KAROLINE Blanchard.
--- NOTE | 2018-11-19 07:40 | NUR ---
NURSE NOTES: Patient received resting in bed. Alert and oriented. Breathing unlabored on room air. Denies SOB or pain at this time. IV site on left hand patent and intact. Dressing on R ear noted for skin tear. Patient refusing for dressing to be changed. Bed locked and set in low position. Call light within reach, will continue to monitor.
[2018-11-19] MEDS: Multivitamin w/Minerals tab ORAL SCH (08:13)
[2018-11-19] MEDS: OLANZapine 10mg tab ORAL SCH ×2 (08:13→17:29)
[2018-11-19] MEDS: Docusate 100mg cap ORAL SCH ×3 (08:13→17:29)
[2018-11-19] MEDS: Tamsulosin 0.4mg cap ORAL SCH ×2 (08:13→17:29)
[2018-11-19 09:00] VITALS: BP 108/64
[2018-11-19] MEDS: Advair 100/50 Inhaler - 14 dose INH SCH ×2 (09:00→17:28)
[2018-11-19 09:21] LABS: BASOPHILS % (AUTO) 1.1 % (0.0-2.0); EOSINOPHILS % (AUTO) 6.2 % (0.0-3.0); HEMATOCRIT 38.8 % (42.0-52.0); HEMOGLOBIN 12.6 G/DL (14.2-18.0); LYMPHOCYTES % (AUTO) 15.1 % (20.0-45.0); MEAN CORPUSCULAR VOLUME 93 FL (80-99); MONOCYTES % (AUTO) 7.5 % (1.0-10.0); NEUTROPHILS % (AUTO) 70.1 % (45.0-75.0); PLATELET COUNT 231 K/UL (150-450); RED BLOOD COUNT 4.15 M/UL (4.70-6.10); RED CELL DISTRIBUTION WIDTH 13.7 % (11.6-14.8); WHITE BLOOD COUNT 8.7 K/UL (4.8-10.8)
[2018-11-19 09:33] LABS: ANION GAP 13 mmol/L (5-15); BLOOD UREA NITROGEN 20 mg/dL (7-18); CALCIUM 8.8 MG/DL (8.5-10.1); CARBON DIOXIDE 23 MMOL/L (21-32); CHLORIDE 108 MMOL/L (98-107); CREATININE 1.7 MG/DL (0.55-1.30); POTASSIUM 3.6 MMOL/L (3.5-5.1); SODIUM 143 MMOL/L (136-145)
--- NOTE | 2018-11-19 11:22 | Nephrology Progress Note ---
Assessment/Plan Problem List: (1) Acute on chronic renal failure (2) Anemia (3) Hypothyroidism (4) COPD (chronic obstructive pulmonary disease) Assessment Elevated Cr : CKD vs Acute COPD / Pneumonia Anemia Psych history HypoThyroidism Plan DC folate- DC Motrin Urine studies Avoid Nephrotoxics Keep BP and BS under control Taper steroids as possible Flomax TSH low- down on synthroid DC ?? Subjective ROS Limited/Unobtainable: No Constitutional: Reports: malaise Objective Objective Last 24 Hour Vital Signs Date Time Temp Pulse Resp B/P (MAP) Pulse Ox O2 Delivery O2 Flow Rate FiO2 11/19/18 09:00 97.4 87 20 108/64 (79) 97 11/19/18 09:00 Room Air 21 11/19/18 09:00 Room Air 11/19/18 07:54 83 14 100 Room Air 11/19/18 07:45 88 14 96 Room Air 11/19/18 04:00 98.3 75 18 101/62 (75) 98 11/19/18 03:19 97.9 11/19/18 01:03 Room Air 21 11/19/18 01:03 Room Air 21 11/18/18 23:52 97.9 75 18 106/71 (83) 97 11/18/18 20:26 79 20 99 Room Air 11/18/18 20:16 Room Air 11/18/18 20:15 80 20 97 Room Air 11/18/18 20:14 80 20 97 Room Air 11/18/18 20:11 Room Air 11/18/18 20:00 98.0 79 20 103/69 (80) 96 11/18/18 16:00 97.1 76 19 111/57 (75) 97 11/18/18 14:07 93 20 99 Room Air 11/18/18 14:01 86 20 97 Room Air 11/18/18 12:00 98.0 74 20 102/66 (78) 97 Intake and Output 11/18/18 11/19/18 19:00 07:00 Intake Total 960 ml 500 ml Balance 960 ml 500 ml Intake Oral 960 ml 500 ml # Voids 2 6 # Bowel Movements 2 Laboratory Tests 11/19/18 08:55: White Blood Count 8.7, Red Blood Count 4.15L, Hemoglobin 12.6L, Hematocrit 38.8L , Mean Corpuscular Volume 93, Mean Corpuscular Hemoglobin 30.4, Mean Corpuscular Hemoglobin Concent 32.5, Red Cell Distribution Width 13.7, Platelet Count 231, Mean Platelet Volume 5.3L, Neutrophils (%) (Auto) 70.1, Lymphocytes ( %) (Auto) 15.1L, Monocytes (%) (Auto) 7.5, Eosinophils (%) (Auto) 6.2H, Basophils (%) (Auto) 1.1, Sodium Level 143, Potassium Level 3.6, Chloride Level 108H, Carbon Dioxide Level 23, Anion Gap 13, Blood Urea Nitrogen 20H, Creatinine 1.7H, Estimat Glomerular Filtration Rate 41.2, Glucose Level 127H, Calcium Level 8.8 Height (Feet): 5 Height (Inches): 10.00 Weight (Pounds): 186 General Appearance: no apparent distress Objective no change Gamal Garcia MD Nov 19, 2018 11:22
[2018-11-19 12:00] VITALS: BP 95/70
--- NOTE | 2018-11-19 12:38 | Infectious Diseases Prog Note ---
Assessment/Plan Assessment/Plan A: COPD/ Asthma exacerbation CKD BPH Paranoid schizophrenia Hypothyroidism MRSA colonization P; Observe off antibiotic Subjective ROS Limited/Unobtainable: No Constitutional: Reports: no symptoms Respiratory: Reports: no symptoms Cardiovascular: Reports: no symptoms Gastrointestinal/Abdominal: Reports: no symptoms Genitourinary: Reports: no symptoms Allergies: Coded Allergies: CHLORPROMAZINE (Unverified Allergy, Unknown, 05/24/18) CLOZAPINE (Unverified Allergy, Unknown, 05/24/18) DIVALPROEX SODIUM (Unverified Allergy, Unknown, 05/24/18) HALOPERIDOL (Unverified Allergy, Unknown, 05/24/18) SERTRALINE (Unverified Allergy, Unknown, 05/24/18) Uncoded Allergies: CLOZASIL (Allergy, Unknown, 07/23/18) Objective Vital Signs Last 24 Hour Vital Signs Date Time Temp Pulse Resp B/P (MAP) Pulse Ox O2 Delivery O2 Flow Rate FiO2 11/19/18 09:00 97.4 87 20 108/64 (79) 97 11/19/18 09:00 Room Air 21 11/19/18 09:00 Room Air 11/19/18 09:00 Room Air 21 11/19/18 07:54 83 14 100 Room Air 11/19/18 07:45 88 14 96 Room Air 11/19/18 04:00 98.3 75 18 101/62 (75) 98 11/19/18 03:19 97.9 11/19/18 01:03 Room Air 21 11/19/18 01:03 Room Air 21 11/18/18 23:52 97.9 75 18 106/71 (83) 97 11/18/18 20:26 79 20 99 Room Air 21 11/18/18 20:16 Room Air 21 11/18/18 20:15 80 20 97 Room Air 21 11/18/18 20:14 80 20 97 Room Air 21 11/18/18 20:11 Room Air 11/18/18 20:00 98.0 79 20 103/69 (80) 96 11/18/18 16:00 97.1 76 19 111/57 (75) 97 11/18/18 14:07 93 20 99 Room Air 21 11/18/18 14:01 86 20 97 Room Air 21 Height (Feet): 5 Height (Inches): 10.00 Weight (Pounds): 186 General Appearance: no acute distress HEENT: mucous membranes moist Respiratory/Chest: lungs clear Cardiovascular: normal rate Abdomen: soft, non tender Extremities: no edema 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: alert, responsive Laboratory Tests Test 11/19/18 08:55 White Blood Count 8.7 K/UL (4.8-10.8) Red Blood Count 4.15 M/UL (4.70-6.10) L Hemoglobin 12.6 G/DL (14.2-18.0) L Hematocrit 38.8 % (42.0-52.0) L Mean Corpuscular Volume 93 FL (80-99) Mean Corpuscular Hemoglobin 30.4 PG (27.0-31.0) Mean Corpuscular Hemoglobin Concent 32.5 G/DL (32.0-36.0) Red Cell Distribution Width 13.7 % (11.6-14.8) Platelet Count 231 K/UL (150-450) Mean Platelet Volume 5.3 FL (6.5-10.1) L Neutrophils (%) (Auto) 70.1 % (45.0-75.0) Lymphocytes (%) (Auto) 15.1 % (20.0-45.0) L Monocytes (%) (Auto) 7.5 % (1.0-10.0) Eosinophils (%) (Auto) 6.2 % (0.0-3.0) H Basophils (%) (Auto) 1.1 % (0.0-2.0) Sodium Level 143 MMOL/L (136-145) Potassium Level 3.6 MMOL/L (3.5-5.1) Chloride Level 108 MMOL/L (98-107) H Carbon Dioxide Level 23 MMOL/L (21-32) Anion Gap 13 mmol/L (5-15) Blood Urea Nitrogen 20 mg/dL (7-18) H Creatinine 1.7 MG/DL (0.55-1.30) H Estimat Glomerular Filtration Rate 41.2 mL/min (>60) Glucose Level 127 MG/DL (74-106) H Calcium Level 8.8 MG/DL (8.5-10.1) Current Medications Medications (Trade) Dose Ordered Sig/Cori Route PRN Reason Start Time Stop Time Status Last Admin Dose Admin Acetaminophen (Tylenol) 325 mg Q4H PRN ORAL Mild Pain/Temp > 100.5 11/13/18 19:30 12/11/18 19:29 Acetaminophen (Tylenol) 500 mg Q4H PRN ORAL Moderate Pain (Pain Scale 4-6) 11/13/18 19:30 12/13/18 19:29 Acetaminophen/ Hydrocodone Bitart ([place] 5/325) 1 tab Q6H PRN ORAL Severe Pain (Pain Scale 7-10) 11/13/18 19:30 11/20/18 19:29 11/19/18 09:45 Albuterol/ Ipratropium (Albuterol/ Ipratropium) 3 ml Q6HRT HHN 11/14/18 13:00 11/19/18 12:59 11/19/18 07:44 Baclofen (Lioresal) 5 mg Q8H PRN ORAL Muscle spasm 11/13/18 22:00 12/13/18 21:59 11/19/18 00:14 Bisacodyl (Dulcolax) 10 mg Q24H PRN RECTAL Constipation 11/13/18 19:30 12/13/18 19:29 Clonazepam (KlonoPIN) 2 mg TID ORAL 11/18/18 09:15 11/25/18 09:14 11/19/18 08:13 Docusate Sodium (Colace) 100 mg TID ORAL 11/14/18 09:00 12/11/18 08:59 11/19/18 08:13 Finasteride (Proscar) 5 mg DAILY ORAL 11/14/18 09:00 12/11/18 08:59 11/19/18 08:13 Levothyroxine Sodium (Synthroid) 50 mcg ACBREAKFAST ORAL 11/14/18 06:30 12/14/18 06:29 11/19/18 06:10 Lorazepam (Ativan) 1 mg Q6H PRN ORAL For Anxiety 11/13/18 19:30 11/20/18 19:29 11/19/18 08:14 Magnesium Hydroxide (Mom) 30 ml HSPRN PRN ORAL Constipation 11/13/18 21:00 12/13/18 20:59 Montelukast Sodium (Singulair) 10 mg QPM ORAL 11/14/18 16:30 12/11/18 16:29 11/18/18 16:36 Multivitamins Therapeutic (Therapeutic Multivitamin) 1 ea DAILY ORAL 11/14/18 09:00 12/11/18 08:59 11/19/18 08:13 Olanzapine (ZyPREXA) 10 mg BID ORAL 11/14/18 09:00 12/11/18 08:59 11/19/18 08:13 Pantoprazole (Protonix) 40 mg BIAC ORAL 11/14/18 06:30 12/11/18 06:29 11/19/18 06:10 Salmeterol Xinafoate/ Fluticasone (Advair 100/50 Diskus) 1 puffs BID INH 11/13/18 20:00 12/13/18 19:59 Sodium Phosphate (Fleet's Sodium Phosl Enema) 133 ml Q24H PRN RECTAL Constipation 11/14/18 00:30 12/14/18 00:29 Tamsulosin HCl (Flomax) 0.4 mg BID ORAL 11/14/18 09:00 12/11/18 08:59 11/19/18 08:13 Topiramate (Topamax) 100 mg QHS ORAL 11/13/18 21:00 12/11/18 20:59 11/18/18 20:39 Trazodone HCl (Desyrel) 100 mg BEDTIME ORAL 11/13/18 21:00 12/11/18 20:59 11/18/18 20:39 Hank Diaz MD Nov 19, 2018 12:38
--- NOTE | 2018-11-19 13:21 | NUR ---
DISCHARGE PLANNING ADMISSION CLINICALS HAVE BEEN FAXED TO [facility] [phone]
--- NOTE | 2018-11-19 13:31 | Pulmonology Progress Note ---
Assessment/Plan Problems: (1) COPD exacerbation (2) COPD (chronic obstructive pulmonary disease) (3) Acute on chronic renal failure (4) Anemia (5) Psychosis Assessment/Plan Optimize pulmonary hygiene/mobilize as tolerated PRN o2 Continue Advair and Singulair for the time being RTC and PRN DUOnebs Oserve off steroids Observe off Abx per ID Monitor volumes and renal function Tobacco cessation discussed at length again today NEEDS AN OUTPATIENT PULMONARY EVALUATION (PFT, screening CT chest) and optimization of inhaler regimen (stated hx of COPD but Advair and singulair suggestive of asthma and not optimal COPD therapy) Subjective Allergies: Coded Allergies: CHLORPROMAZINE (Unverified Allergy, Unknown, 05/24/18) CLOZAPINE (Unverified Allergy, Unknown, 05/24/18) DIVALPROEX SODIUM (Unverified Allergy, Unknown, 05/24/18) HALOPERIDOL (Unverified Allergy, Unknown, 05/24/18) SERTRALINE (Unverified Allergy, Unknown, 05/24/18) Uncoded Allergies: CLOZASIL (Allergy, Unknown, 07/23/18) Subjective AFVSS, on RA Denies SOB, no cough ,no wheezing, no FC, no CP Objective Last 24 Hour Vital Signs Date Time Temp Pulse Resp B/P (MAP) Pulse Ox O2 Delivery O2 Flow Rate FiO2 11/19/18 12:00 97.9 89 20 95/70 (78) 97 11/19/18 09:00 97.4 87 20 108/64 (79) 97 11/19/18 09:00 Room Air 21 11/19/18 09:00 Room Air 11/19/18 09:00 Room Air 21 11/19/18 07:54 83 14 100 Room Air 21 11/19/18 07:45 88 14 96 Room Air 21 11/19/18 04:00 98.3 75 18 101/62 (75) 98 11/19/18 03:19 97.9 11/19/18 01:03 Room Air 21 11/19/18 01:03 Room Air 21 11/18/18 23:52 97.9 75 18 106/71 (83) 97 11/18/18 20:26 79 20 99 Room Air 21 11/18/18 20:16 Room Air 21 11/18/18 20:15 80 20 97 Room Air 21 11/18/18 20:14 80 20 97 Room Air 21 11/18/18 20:11 Room Air 11/18/18 20:00 98.0 79 20 103/69 (80) 96 11/18/18 16:00 97.1 76 19 111/57 (75) 97 11/18/18 14:07 93 20 99 Room Air 21 11/18/18 14:01 86 20 97 Room Air 21 Intake and Output 11/18/18 11/19/18 19:00 07:00 Intake Total 960 ml 500 ml Balance 960 ml 500 ml Intake Oral 960 ml 500 ml # Voids 2 6 # Bowel Movements 2 General Appearance: no acute distress, cachetic HEENT: normocephalic, atraumatic, anicteric, mucous membranes moist Respiratory/Chest: chest wall non-tender, lungs clear, normal breath sounds, no respiratory distress, no accessory muscle use Cardiovascular: normal peripheral pulses, normal rate, regular rhythm Abdomen: normal bowel sounds, soft, non tender, no organomegaly, non distended , no mass Extremities: no cyanosis, no clubbing, no edema Laboratory Tests 11/19/18 08:55: White Blood Count 8.7, Red Blood Count 4.15L, Hemoglobin 12.6L, Hematocrit 38.8L , Mean Corpuscular Volume 93, Mean Corpuscular Hemoglobin 30.4, Mean Corpuscular Hemoglobin Concent 32.5, Red Cell Distribution Width 13.7, Platelet Count 231, Mean Platelet Volume 5.3L, Neutrophils (%) (Auto) 70.1, Lymphocytes ( %) (Auto) 15.1L, Monocytes (%) (Auto) 7.5, Eosinophils (%) (Auto) 6.2H, Basophils (%) (Auto) 1.1, Sodium Level 143, Potassium Level 3.6, Chloride Level 108H, Carbon Dioxide Level 23, Anion Gap 13, Blood Urea Nitrogen 20H, Creatinine 1.7H, Estimat Glomerular Filtration Rate 41.2, Glucose Level 127H, Calcium Level 8.8 Current Medications Medications (Trade) Dose Ordered Sig/Cori Route PRN Reason Start Time Stop Time Status Last Admin Dose Admin Acetaminophen (Tylenol) 325 mg Q4H PRN ORAL Mild Pain/Temp > 100.5 11/13/18 19:30 12/11/18 19:29 Acetaminophen (Tylenol) 500 mg Q4H PRN ORAL Moderate Pain (Pain Scale 4-6) 11/13/18 19:30 12/13/18 19:29 Acetaminophen/ Hydrocodone Bitart ([place] 5/325) 1 tab Q6H PRN ORAL Severe Pain (Pain Scale 7-10) 11/13/18 19:30 11/20/18 19:29 11/19/18 09:45 Baclofen (Lioresal) 5 mg Q8H PRN ORAL Muscle spasm 11/13/18 22:00 12/13/18 21:59 11/19/18 12:53 Bisacodyl (Dulcolax) 10 mg Q24H PRN RECTAL Constipation 11/13/18 19:30 12/13/18 19:29 Clonazepam (KlonoPIN) 2 mg TID ORAL 11/18/18 09:15 11/25/18 09:14 11/19/18 12:53 Docusate Sodium (Colace) 100 mg TID ORAL 11/14/18 09:00 12/11/18 08:59 11/19/18 12:53 Finasteride (Proscar) 5 mg DAILY ORAL 11/14/18 09:00 12/11/18 08:59 11/19/18 08:13 Levothyroxine Sodium (Synthroid) 50 mcg ACBREAKFAST ORAL 11/14/18 06:30 12/14/18 06:29 11/19/18 06:10 Lorazepam (Ativan) 1 mg Q6H PRN ORAL For Anxiety 11/13/18 19:30 11/20/18 19:29 11/19/18 08:14 Magnesium Hydroxide (Mom) 30 ml HSPRN PRN ORAL Constipation 11/13/18 21:00 12/13/18 20:59 Montelukast Sodium (Singulair) 10 mg QPM ORAL 11/14/18 16:30 12/11/18 16:29 11/18/18 16:36 Multivitamins Therapeutic (Therapeutic Multivitamin) 1 ea DAILY ORAL 11/14/18 09:00 12/11/18 08:59 11/19/18 08:13 Olanzapine (ZyPREXA) 10 mg BID ORAL 11/14/18 09:00 12/11/18 08:59 11/19/18 08:13 Pantoprazole (Protonix) 40 mg BIAC ORAL 11/14/18 06:30 12/11/18 06:29 11/19/18 06:10 Salmeterol Xinafoate/ Fluticasone (Advair 100/50 Diskus) 1 puffs BID INH 11/13/18 20:00 12/13/18 19:59 Sodium Phosphate (Fleet's Sodium Phosl Enema) 133 ml Q24H PRN RECTAL Constipation 11/14/18 00:30 12/14/18 00:29 Tamsulosin HCl (Flomax) 0.4 mg BID ORAL 11/14/18 09:00 12/11/18 08:59 11/19/18 08:13 Topiramate (Topamax) 100 mg QHS ORAL 11/13/18 21:00 12/11/18 20:59 11/18/18 20:39 Trazodone HCl (Desyrel) 100 mg BEDTIME ORAL 11/13/18 21:00 12/11/18 20:59 11/18/18 20:39 Jan Caraballo MD Nov 19, 2018 13:31
--- NOTE | 2018-11-19 13:32 | General Progress Note ---
Assessment/Plan Problem List: (1) ATN (acute tubular necrosis) ICD Codes: N17.0 - Acute kidney failure with tubular necrosis SNOMED: 40967896 (2) Asthma ICD Codes: J45.909 - Unspecified asthma, uncomplicated SNOMED: 477392278 (3) COPD (chronic obstructive pulmonary disease) ICD Codes: J44.9 - Chronic obstructive pulmonary disease, unspecified SNOMED: 74877333 Qualifiers: Qualified Codes: J44.9 - Chronic obstructive pulmonary disease, unspecified (4) Anemia ICD Codes: D64.9 - Anemia, unspecified SNOMED: 423695352 (5) Psychosis ICD Codes: F29 - Unspecified psychosis not due to a substance or known physiological condition SNOMED: 95468925 (6) COPD exacerbation ICD Codes: J44.1 - Chronic obstructive pulmonary disease with (acute) exacerbation SNOMED: 816396950 Status: stable, progressing Assessment/Plan abx o2 pulm tx bp control dc if clear Subjective Constitutional: Reports: weakness Allergies: Coded Allergies: CHLORPROMAZINE (Unverified Allergy, Unknown, 05/24/18) CLOZAPINE (Unverified Allergy, Unknown, 05/24/18) DIVALPROEX SODIUM (Unverified Allergy, Unknown, 05/24/18) HALOPERIDOL (Unverified Allergy, Unknown, 05/24/18) SERTRALINE (Unverified Allergy, Unknown, 05/24/18) Uncoded Allergies: CLOZASIL (Allergy, Unknown, 07/23/18) All Systems: reviewed and negative except above Subjective sleepy calm Objective Last 24 Hour Vital Signs Date Time Temp Pulse Resp B/P (MAP) Pulse Ox O2 Delivery O2 Flow Rate FiO2 11/19/18 12:00 97.9 89 20 95/70 (78) 97 11/19/18 09:00 97.4 87 20 108/64 (79) 97 11/19/18 09:00 Room Air 21 11/19/18 09:00 Room Air 11/19/18 09:00 Room Air 21 11/19/18 07:54 83 14 100 Room Air 21 11/19/18 07:45 88 14 96 Room Air 21 11/19/18 04:00 98.3 75 18 101/62 (75) 98 11/19/18 03:19 97.9 11/19/18 01:03 Room Air 21 11/19/18 01:03 Room Air 21 11/18/18 23:52 97.9 75 18 106/71 (83) 97 11/18/18 20:26 79 20 99 Room Air 21 11/18/18 20:16 Room Air 21 11/18/18 20:15 80 20 97 Room Air 21 11/18/18 20:14 80 20 97 Room Air 21 11/18/18 20:11 Room Air 11/18/18 20:00 98.0 79 20 103/69 (80) 96 11/18/18 16:00 97.1 76 19 111/57 (75) 97 11/18/18 14:07 93 20 99 Room Air 21 11/18/18 14:01 86 20 97 Room Air 21 Intake and Output 11/18/18 11/19/18 19:00 07:00 Intake Total 960 ml 500 ml Balance 960 ml 500 ml Intake Oral 960 ml 500 ml # Voids 2 6 # Bowel Movements 2 Laboratory Tests 11/19/18 08:55: White Blood Count 8.7, Red Blood Count 4.15L, Hemoglobin 12.6L, Hematocrit 38.8L , Mean Corpuscular Volume 93, Mean Corpuscular Hemoglobin 30.4, Mean Corpuscular Hemoglobin Concent 32.5, Red Cell Distribution Width 13.7, Platelet Count 231, Mean Platelet Volume 5.3L, Neutrophils (%) (Auto) 70.1, Lymphocytes ( %) (Auto) 15.1L, Monocytes (%) (Auto) 7.5, Eosinophils (%) (Auto) 6.2H, Basophils (%) (Auto) 1.1, Sodium Level 143, Potassium Level 3.6, Chloride Level 108H, Carbon Dioxide Level 23, Anion Gap 13, Blood Urea Nitrogen 20H, Creatinine 1.7H, Estimat Glomerular Filtration Rate 41.2, Glucose Level 127H, Calcium Level 8.8 Height (Feet): 5 Height (Inches): 10.00 Weight (Pounds): 186 General Appearance: lethargic EENT: normal ENT inspection Neck: normal alignment Cardiovascular: normal peripheral pulses, normal rate, regular rhythm Respiratory/Chest: chest wall non-tender, lungs clear, normal breath sounds Abdomen: normal bowel sounds, non tender, soft Extremities: normal inspection Edema: no edema noted Arm (L), no edema noted Arm (R), no edema noted Leg (L), no edema noted Leg (R), no edema noted Pedal (L), no edema noted Pedal (R), no edema noted Generalized Neurologic: responsive, motor weakness Skin: normal pigmentation, warm/dry Mansoor Villafuerte DO Nov 19, 2018 13:32
--- NOTE | 2018-11-19 15:08 | NUR ---
DISCHARGE NOTES PATIENT HAS BEEN ACCEPTED BACK TO [facility] TO ROOM# 2-A "ALF". PATIENT TO BE DISCHARGE TOMORROW 11/20/18 [facility] IS SHORT STAFF AND UNABLE TO TAKE PATIENT TODAY 11/19/18 SPKE TO DESTIN AT [facility].
--- NOTE | 2018-11-19 15:14 | NUR ---
SUPERVISOR MAPPINGSLAB POLISHER SI: COPD EXACERBATION T. 97.9 HR 89 RR 20 B/P 95/70 RA 98% IS: PROTONIX PO ZYPREXA PO ADVAIR HHN MED/SURG STATUS
[2018-11-19] MEDS: Montelukast 10mg tablet ORAL SCH (15:32)
[2018-11-19 16:00] VITALS: BP 107/59
--- NOTE | 2018-11-19 19:13 | NUR ---
HAND-OFF: Report given to Jossue RAMEY.
--- NOTE | 2018-11-19 19:33 | NUR ---
NURSE NOTES: Received patient asleep,comfortable,no SOB.
[2018-11-19 20:00] VITALS: BP 100/62
--- NOTE | 2018-11-19 20:30 | Progress Note ---
DATE: 11/19/2018 SUBJECTIVE: This is a 63-year-old male patient with COPD. The patient still has some confusion and disorganized thought process, altered mental status, and high levels of anxiety, that is why he requires daily psychiatric consultation. MENTAL STATUS EXAMINATION: The patient is a 63-year-old male. Appearance is disheveled. Attitude, irritable and agitated. Affect, guarded and restricted. Attention span is poor. Orientation x2. Speech is pressured. Thought process, disorganized and illogical. Insight and judgment is poor. DIAGNOSIS: Schizoaffective, bipolar type. PLAN: Continue to treat the patient with Zyprexa and Topamax. Provide him with 20 minutes of cognitive behavioral therapy to help him identify his automatic negative thoughts and help him to convert those negative thoughts to more positive thoughts to reduce depression, anxiety, and suicidality. Chart reviewed. Discussed with staff. Seen and assessed at bedside. Shantanu Way M.D. DR: Gentry JOB#: [id number] CC:
[2018-11-19] MEDS: Topiramate 100mg tab ORAL SCH (21:23)
[2018-11-19] MEDS: TraZODone 100mg tab ORAL SCH (21:23)
[2018-11-20 00:34] VITALS: BP 94/62
[2018-11-20 04:00] VITALS: BP 98/59
[2018-11-20] MEDS: Norco 5mg/325mg tab ORAL PRN ×2 (05:48→12:15)
[2018-11-20] MEDS ORDERED: Albuterol/Ipratropium 3ml neb HHN PRN (07:15)
--- NOTE | 2018-11-20 07:23 | NUR ---
HAND-OFF: Report given to Davin Bashir RN.
[2018-11-20] MEDS: Advair 100/50 Inhaler - 14 dose INH SCH (07:27)
[2018-11-20 08:00] VITALS: BP 103/68
[2018-11-20] MEDS: Tamsulosin 0.4mg cap ORAL SCH (08:33)
[2018-11-20] MEDS: Docusate 100mg cap ORAL SCH ×2 (08:33→13:00)
[2018-11-20] MEDS: Multivitamin w/Minerals tab ORAL SCH (08:33)
[2018-11-20] MEDS: OLANZapine 10mg tab ORAL SCH (08:33)
--- NOTE | 2018-11-20 09:39 | NUR ---
DISCHARGE PLANNED PATIENT DISCHARGE BACK TO: [facility] ROOM# 2-A LONG-TERM T:[phone] FOR NURSE TO NURSE REVIEW [facility] HAS BEEN ARRANGED FOR SQL DATA ANALYST AT 11:30 AM S/W MOSHE [id number]
[2018-11-20] MEDS: LORazepam 1mg tab ORAL PRN (09:48)
--- NOTE | 2018-11-20 10:28 | NUR ---
NURSE NOTES: RN placed a call to [facility] conv. and spoke with Leidy RN supervisor ski production to give transfer report and she said " You need to talk to the admitting. I did not hear anything about the admission.Yevgeniy is in the meeting.He will call you back." Rn informed her he was accepted since yesterday. Awaiting for return call. CM made aware.
--- NOTE | 2018-11-20 10:50 | NUR ---
NURSE NOTES: Transfer report given to Leidy RAMEY @ [facility] view conv.
[2018-11-20 12:00] VITALS: BP 111/70
--- NOTE | 2018-11-20 12:50 | NUR ---
NURSE NOTES: Patient was discharged to [facility] accompanied by two female attendants from [facility] in stable condition. Prior to discharge, patient's condition was stable. V/S stable. Afebrile, on room air. Denied any SOB. Given pain meds due to generalized body pain of 6. Pain level was 2 prior to discharge. IV and ID was removed. No s/s of infection on IV removal site. Dressing on right ear intact, patient did not want RN to change the dressing.Patient stated that " It is ok." Patient's wallet and garcia of $64.00 given and No missing items per patient. RN doubled check the belongings. all the belonging accounted for. Patient was calm prior to discharge.Skin intact.
--- NOTE | 2018-11-20 13:12 | Nephrology Progress Note ---
Assessment/Plan Problem List: (1) Acute on chronic renal failure (2) Anemia (3) Hypothyroidism (4) COPD (chronic obstructive pulmonary disease) Assessment Elevated Cr : CKD vs Acute COPD / Pneumonia Anemia Psych history HypoThyroidism Plan DC folate- DC Motrin Urine studies Avoid Nephrotoxics Keep BP and BS under control Taper steroids as possible Flomax TSH low- down on synthroid DC ?? Subjective ROS Limited/Unobtainable: No Objective Objective Last 24 Hour Vital Signs Date Time Temp Pulse Resp B/P (MAP) Pulse Ox O2 Delivery O2 Flow Rate FiO2 11/20/18 12:00 98.4 81 20 111/70 (84) 95 11/20/18 09:00 Room Air 11/20/18 08:00 98.0 96 20 103/68 (80) 93 11/20/18 07:59 Room Air 21 11/20/18 07:58 95 20 98 Room Air 21 11/20/18 07:23 88 16 94 Room Air 21 11/20/18 06:18 97.9 11/20/18 04:00 97.9 80 17 98/59 (72) 93 11/20/18 00:34 97.9 68 16 94/62 (73) 94 11/19/18 20:28 80 18 Room Air 21 11/19/18 20:24 Room Air 11/19/18 20:00 97.9 82 17 100/62 (75) 93 11/19/18 20:00 Room Air 21 11/19/18 19:30 Room Air 21 11/19/18 16:00 98.1 97 20 107/59 (75) 99 Intake and Output 11/19/18 11/20/18 19:00 07:00 Intake Total 1030 ml Output Total 700 ml Balance 330 ml Intake Oral 1030 ml Output Urine Total 700 ml # Voids 4 3 Current Medications Medications (Trade) Dose Ordered Sig/Cori Route PRN Reason Start Time Stop Time Status Last Admin Dose Admin Acetaminophen (Tylenol) 325 mg Q4H PRN ORAL Mild Pain/Temp > 100.5 11/13/18 19:30 12/11/18 19:29 Acetaminophen (Tylenol) 500 mg Q4H PRN ORAL Moderate Pain (Pain Scale 4-6) 11/13/18 19:30 12/13/18 19:29 Acetaminophen/ Hydrocodone Bitart ([place] 5/325) 1 tab Q6H PRN ORAL Severe Pain (Pain Scale 7-10) 11/13/18 19:30 11/20/18 19:29 11/20/18 12:15 Albuterol/ Ipratropium (Albuterol/ Ipratropium) 3 ml Q4H PRN HHN Shortness of Breath 11/20/18 07:15 11/25/18 07:14 11/20/18 07:23 Baclofen (Lioresal) 5 mg Q8H PRN ORAL Muscle spasm 11/13/18 22:00 12/13/18 21:59 11/20/18 09:49 Bisacodyl (Dulcolax) 10 mg Q24H PRN RECTAL Constipation 11/13/18 19:30 12/13/18 19:29 Clonazepam (KlonoPIN) 2 mg TID ORAL 11/18/18 09:15 11/25/18 09:14 11/20/18 08:33 Docusate Sodium (Colace) 100 mg TID ORAL 11/14/18 09:00 12/11/18 08:59 11/20/18 08:33 Finasteride (Proscar) 5 mg DAILY ORAL 11/14/18 09:00 12/11/18 08:59 11/20/18 08:33 Levothyroxine Sodium (Synthroid) 50 mcg ACBREAKFAST ORAL 11/14/18 06:30 12/14/18 06:29 11/20/18 05:38 Lorazepam (Ativan) 1 mg Q6H PRN ORAL For Anxiety 11/13/18 19:30 11/20/18 19:29 11/20/18 09:48 Magnesium Hydroxide (Mom) 30 ml HSPRN PRN ORAL Constipation 11/13/18 21:00 12/13/18 20:59 Montelukast Sodium (Singulair) 10 mg QPM ORAL 11/14/18 16:30 12/11/18 16:29 11/19/18 15:32 Multivitamins Therapeutic (Therapeutic Multivitamin) 1 ea DAILY ORAL 11/14/18 09:00 12/11/18 08:59 11/20/18 08:33 Olanzapine (ZyPREXA) 10 mg BID ORAL 11/14/18 09:00 12/11/18 08:59 11/20/18 08:33 Pantoprazole (Protonix) 40 mg BIAC ORAL 11/14/18 06:30 12/11/18 06:29 11/20/18 05:38 Salmeterol Xinafoate/ Fluticasone (Advair 100/50 Diskus) 1 puffs BID INH 11/13/18 20:00 12/13/18 19:59 Sodium Phosphate (Fleet's Sodium Phosl Enema) 133 ml Q24H PRN RECTAL Constipation 11/14/18 00:30 12/14/18 00:29 Tamsulosin HCl (Flomax) 0.4 mg BID ORAL 11/14/18 09:00 12/11/18 08:59 11/20/18 08:33 Topiramate (Topamax) 100 mg QHS ORAL 11/13/18 21:00 12/11/18 20:59 11/19/18 21:23 Trazodone HCl (Desyrel) 100 mg BEDTIME ORAL 11/13/18 21:00 12/11/18 20:59 11/19/18 21:23 Height (Feet): 5 Height (Inches): 10.00 Weight (Pounds): 186 General Appearance: no apparent distress Objective no change Gamal Garcia MD Nov 20, 2018 13:12
--- NOTE | 2018-11-21 02:30 | Consultation ---
DATE OF CONSULTATION: 11/20/2018 NOTE: POOR AUDIO CONSULTING PHYSICIAN: Shantanu Way M.D. HISTORY OF PRESENT ILLNESS: The patient is a 63-year-old male patient with chronic obstructive pulmonary disease. The patient does have a history of chronic obstructive pulmonary disease, but he also has high levels of anxiety, depression, and mood lability worsened by stress of his medical illness. That is why, his attending has requested daily psychiatric consultation. MENTAL STATUS EXAMINATION: This is a 63-year-old male. Appearance is disheveled. Attitude, irritable and agitated. Affect, guarded and restricted. Intellect poor. Mood depressed and anxious. Motor activity, psychomotor agitation. Attention span is poor. Orientation x2. Speech is pressured. Thought process, disorganized and illogical. Thought content, auditory hallucinations and paranoid delusions. Insight and judgment is poor. The patient's chart is reviewed, disorganized thought process, medications have been discontinued. , so continue to monitor this patient in the meantime throughout hospital course and continue to be followed by Psychiatry throughout hospital course. . Chart reviewed and discussed with staff. Seen and assessed in his room. Continue to be followed by Psychiatry throughout hospital course. 20 minutes of cognitive behavioral therapy provided to help him identify automatic negative thoughts and help him to convert those negative thoughts to more positive thoughts to reduce depression, anxiety, and suicidality. Shantanu Wya M.D. DR: MACY JOB#: [id number] CC:
--- NOTE | 2018-11-22 08:21 | Discharge Summary ---
Discharge Summary Discharge Summary _ DATE OF ADMISSION: 11/10/2018 DATE OF DISCHARGE: 11/20/2018 DISCHARGED BY: Dr. Gutierrez REASON FOR ADMISSION: 63 years old male with past medical history of COPD, chronic tobacco user, GERD , anemia, seizure disorder, was sent from the shelter facility for evaluation due to complaint of chest pain and shortness of breath. Patient reported cough and shortness of breath for the last 3 days. Cough productive with yellow phlegm . Patient reports developing chest pain after cough . Chest pain described as midsternal, sharp, nonradiating, worse with coughing, 5 out of 10 on a scale 1-10. Patient denied fever or chills. Initial breathing treatment provided by paramedics. Vital signs revealed no fever . Laboratory workup revealed no leukocytosis, hemoglobin 11.6, hematocrit 35. Sodium 134. Chloride 94. Lactic acid 1.4. BUN 14, creatinine 1.6. Troponin negative. EKG reveals sinus rhythm ,no acute ischemic changes. Pro BNP 14. Urinalysis revealed no evidence of UTI. Chest x-ray revealed no acute cardiopulmonary pathology. Patient was admitted for further management. [facility] pulmonary ID specialist Dr. Jody Diaz tile molder Dr. Garcia psychiatrist Dr. Way [facility] COURSE: Patient admitted. Manufacturing Sr Engineer seen and evaluated patient, diagnosed with COPD exacerbation. Supplemental oxygen provided as needed to keep pulse oximetry above 90%. Pulmonary toilet provided with nebulizing therapy around the clock and as needed. Patient was started on intravenous steroids with gradual tapering down. Patient completed course of steroids. Patient was on empiric antibiotic. Singular and Advair inhaler continued. Antitussive provided as needed Patient was counseled on smoking cessation. Patient declined Nicotine patch . Aspiration precautions were maintained. DVT and GI prophylaxis provided. Troponin x 2 were negative. Initial chest pain was likely due to COPD exacerbation and shortly after initiation of treatment resolved. Infectious disease specialist followed. Influenza screen test was negative. Blood cultures were negative. Patient completed course of empiric antibiotic for COPD exacerbation. Infectious disease doctor recommended to keep patient off antibiotics . No evidence of infection. Patient afebrile ,no leukocytosis. Motor Scooter Mechanic closely followed. Patient was noted to have initially elevated creatinine . Patient was slowly hydrated. Urine studies were done. Renal parameters and electrolytes were closely monitored. Electrolytes corrected as needed. Steroids were tapered and discontinued. Nonsteroidal anti-inflammatory medications avoided. Flomax and Proscar continued. Lipid panel was stable. TSH was within normal limits. Levothyroxine continued. Hemoglobin and hematocrit were closely monitored with goal to keep hemoglobin above 7, remained stable during admission. Hemoglobin 12.6, hematocrit 38.8 prior to discharge. Seizure precautions maintained. Topamax continued. No evidence of seizure activity while in the hospital. Psychiatrist closely followed and diagnosed patient with schizoaffective disorder bipolar type. Psychiatric medication regimen was continued with Zyprexa and Topamax. Cognitive behavioral therapy provided . Patient clinically stabilized and was ready for transfer to shelter facility. Pulse oximetry stable on room air, no respirartiory distress. Per trim installer, patient will need outpatient pulmonary evaluation : PFT, screening CT chest, and optimization of present regimen. Patient reported history of COPD, however Advair and Singulair ( on which he was prior to admission) were more suggestive of asthma . . FINAL DIAGNOSES: COPD exacerbation Acute on chronic renal failure Chronic tobacco use GERD Hypoxemia Anemia Hypothyroidism BPH Schizoaffective disorder , bipolar type DISCHARGE MEDICATIONS: See Medication Reconciliation list. DISCHARGE INSTRUCTIONS: Patient was discharged to the shelter facility. Follow up with medical doctor at the facility. Outpatient pulmonary evaluation was recommended. I have been assigned to dictate discharge summary for this account. I was not involved in the patient's management. Ilene Garza NP Nov 22, 2018 08:21
== END 2018-11-20 12:50 | DRG 191 ==
LOC: EDBD 17:59 → EMR 18:30 → 2E 19:06 → EDBEDREQ 20:58 → 4E 11-13 18:40
DX: J44.1 Chronic obstructive pulmonary disease with (acute) exacerbation (principal); N17.9 Acute kidney failure, unspecified; F25.0 Schizoaffective disorder, bipolar type; R07.89 Other chest pain; N18.9 Chronic kidney disease, unspecified; F17.200 Nicotine dependence, unspecified, uncomplicated; K21.9 Gastro-esophageal reflux disease without esophagitis; E87.6 Hypokalemia; D64.9 Anemia, unspecified; E03.9 Hypothyroidism, unspecified; N40.0 Benign prostatic hyperplasia without lower urinary tract symptoms; Z88.8 Allergy status to other drugs, medicaments and biological substances; R09.02 Hypoxemia; Z22.322 Carrier or suspected carrier of Methicillin resistant Staphylococcus aureus; R14.0 Abdominal distension (gaseous)
CPT/HCPCS: 36415; 71045; 80048; 80053; 80061; 81003; 82550; 82553; 82607; 82728; 82746; 82977; 83036; 83540; 83550; 83605; 83735; 83880; 84100; 84443; 84484; 84550; 85007; 85025; 86140; 86710; 87040; 87081; 93005; 94640; 94664; 96361; 96365; 96368; 96375; 99285; J7620

== ENCOUNTER 2018-11-25 19:52 | Emergency (ER) | payer MEDICARE, OTHER ==
[~2018-11-25] VITALS: Ht 172.7 cm; Wt 90.7 kg
[~2018-11-25 19:52] MED LIST changes: +ACETAMINOPHEN500 M3 ORAL; +BACLOFEN5 MG PO; +BISACODYL10 M1 RC; +DOCUSATE SODIU100 MG ORAL; +FLEET ENEMA133 ML RECTAL; +MULTIVITAMINS1 EAC8 ORAL; +NORCO 5-325 TA1 EACH ORAL; +SYNTHROID100 MCG ORAL; +TRAZODONE HCL100 MG ORAL
--- NOTE | 2018-11-25 19:55 | NUR ---
ED Nurse Note: Received report. Pt CONRADO from [facility] Conv. Pt c/o body aches 08/22. Ambulance personnel said he received Ativan, Baclofen and Klonopin at 1800 and [place] at 1400 today 11/25/18 at [facility]. VSS and pt placed on monitoring manager. Pt stable. Will await orders.
--- NOTE | 2018-11-25 19:57 | Emergency Room Report ---
History of Present Illness General Chief Complaint: Pain Source: Patient Present Illness HPI Patient is a 63-year-old male brought in by EMS after increased generalized pain. Patient reports having pain to his head sore throat, chest discomfort, extremity discomfort, abdominal pain as well as several other locations. Patient recently been given pain medications at his nursing facility. Patient was noted to be vomiting. He is onset of symptoms approximately 8 hours prior to arrival. He reports having quit smoking approximately 3 days ago. Patient was noted to have multiple allergies to psychiatric medications.Patient reportedly had been given Klonopin as well as Blythe and another benzodiazepine prior to arrival. Allergies: Coded Allergies: CHLORPROMAZINE (Unverified Allergy, Unknown, 05/24/18) CLOZAPINE (Unverified Allergy, Unknown, 05/24/18) DIVALPROEX SODIUM (Unverified Allergy, Unknown, 05/24/18) HALOPERIDOL (Unverified Allergy, Unknown, 05/24/18) SERTRALINE (Unverified Allergy, Unknown, 05/24/18) Uncoded Allergies: CLOZASIL (Allergy, Unknown, 07/23/18) Patient History Past Medical History: see triage record Reviewed Nursing Documentation: PMH: Agreed; PSxH: Agreed Nursing Documentation-PMH Hx Cardiac Problems: Yes - Chest pain, unspecified Hx Asthma: Yes Hx COPD: Yes Hx Cancer: Yes Hx Gastrointestinal Problems: Yes - GERD, pancreatitis History Of Psychiatric Problem: Yes - Unspecified Psychosis Hx Seizures: Yes Review of Systems All Other Systems: negative except mentioned in HPI Physical Exam Vital Signs Date Time Temp Pulse Resp B/P (MAP) Pulse Ox O2 Delivery O2 Flow Rate FiO2 11/25/18 19:48 99.0 88 18 124/86 98 Room Air Sp02 EP Interpretation: reviewed, normal General Appearance: normal inspection, well appearing, no apparent distress, alert, GCS 15, non-toxic Head: atraumatic ENT: normal ENT inspection, hearing grossly normal, normal voice Neck: normal inspection, full range of motion, supple, no bony tend Respiratory: normal inspection, no respiratory distress, no retraction, wheezing Cardiovascular #1: regular rate, rhythm, no edema Gastrointestinal: normal inspection, normal bowel sounds, non tender, soft, no guarding, no hernia Genitourinary: no CVA tenderness Musculoskeletal: normal inspection, back normal, normal range of motion Neurologic: normal inspection, alert, oriented x3, responsive, speech normal Psychiatric: normal inspection, judgement/insight normal, mood/affect normal Skin: normal inspection, normal color, no rash Medical Decision Making Diagnostic Impression: Primary Impression: COPD (chronic obstructive pulmonary disease) ER Course Patient presented for chest pain. Differential diagnosis included but was not limited to acute coronary syndrome, pulmonary embolism, pneumonia, aortic dissection, shingles, pneumothorax, aortic dissection, esophageal rupture, pericarditis. Because of complexity of patient's case laboratory testing and imaging studies were ordered. Patient recent hospitalization. EKG interpreted by me showed normal sinus rhythm with a rate of [address] or T wave changes. Patient was noted to have prior recent hospitalization. He was given breathing treatments with improvement of symptoms. Patient will be discharged back to his facility. Patient's laboratory studies were unremarkable. Labs Test 11/25/18 20:20 11/25/18 20:25 White Blood Count 9.9 K/UL (4.8-10.8) Red Blood Count 4.19 M/UL (4.70-6.10) Hemoglobin 12.6 G/DL (14.2-18.0) Hematocrit 37.6 % (42.0-52.0) Mean Corpuscular Volume 90 FL (80-99) Mean Corpuscular Hemoglobin 30.1 PG (27.0-31.0) Mean Corpuscular Hemoglobin Concent 33.6 G/DL (32.0-36.0) Red Cell Distribution Width 12.5 % (11.6-14.8) Platelet Count 208 K/UL (150-450) Mean Platelet Volume 6.0 FL (6.5-10.1) Neutrophils (%) (Auto) 68.8 % (45.0-75.0) Lymphocytes (%) (Auto) 17.7 % (20.0-45.0) Monocytes (%) (Auto) 7.5 % (1.0-10.0) Eosinophils (%) (Auto) 4.7 % (0.0-3.0) Basophils (%) (Auto) 1.4 % (0.0-2.0) Sodium Level 132 MMOL/L (136-145) Potassium Level 3.5 MMOL/L (3.5-5.1) Chloride Level 98 MMOL/L (98-107) Carbon Dioxide Level 28 MMOL/L (21-32) Anion Gap 6 mmol/L (5-15) Blood Urea Nitrogen 21 mg/dL (7-18) Creatinine 1.3 MG/DL (0.55-1.30) Estimat Glomerular Filtration Rate 56.1 mL/min (>60) Glucose Level 102 MG/DL (74-106) Lactic Acid Level 0.80 mmol/L (0.4-2.0) Calcium Level 8.7 MG/DL (8.5-10.1) Total Bilirubin 0.2 MG/DL (0.2-1.0) Aspartate Amino Transf (AST/SGOT) 24 U/L (15-37) Alanine Aminotransferase (ALT/SGPT) 33 U/L (12-78) Alkaline Phosphatase 86 U/L (46-116) Total Creatine Kinase 62 U/L (26-308) Creatine Kinase MB 0.6 NG/ML (0.0-3.6) Creatine Kinase MB Relative Index 0.9 Troponin I 0.000 ng/mL (0.000-0.056) Total Protein 7.0 G/DL (6.4-8.2) Albumin 3.6 G/DL (3.4-5.0) Globulin 3.4 g/dL Albumin/Globulin Ratio 1.1 (1.0-2.7) Urine Color Pale yellow Urine Appearance Clear Urine pH 7 (4.5-8.0) Urine Specific [place] 1.005 (1.005-1.035) Urine Protein Negative (NEGATIVE) Urine Glucose (UA) Negative (NEGATIVE) Urine Ketones Negative (NEGATIVE) Urine Blood Negative (NEGATIVE) Urine Nitrite Negative (NEGATIVE) Urine Bilirubin Negative (NEGATIVE) Urine Urobilinogen Normal MG/DL (0.0-1.0) Urine Leukocyte Esterase Negative (NEGATIVE) Last Vital Signs Date Time Temp Pulse Resp B/P (MAP) Pulse Ox O2 Delivery O2 Flow Rate FiO2 11/25/18 19:48 99.0 88 18 124/86 98 Room Air Status: improved Disposition: HOME, SELF-CARE Condition: Stable Allen Nick MD Nov 25, 2018 19:57
[2018-11-25] MEDS ORDERED: Albuterol/Ipratropium 3ml neb HHN ONE (20:00)
[2018-11-25] MEDS ORDERED: FLEET ENEMA133 ML RECTAL (20:06)
[2018-11-25] MEDS ORDERED: KLONOPIN1 MG ORAL (20:06)
[2018-11-25] MEDS ORDERED: DUCOLAX RECTAL (20:06)
[2018-11-25 20:30] VITALS: BP 114/83
[2018-11-25 20:54] LABS: APPEARANCE,URINE CLEAR; BILIRUBIN, URINE NEGATIVE (NEGATIVE); COLOR,URINE PALE YELLOW; GLUCOSE, URINE (UA) NEGATIVE (NEGATIVE); KETONES,URINE NEGATIVE (NEGATIVE); LEUKOCYTE ESTERASE ,URINE NEGATIVE (NEGATIVE); NITRITE,URINE NEGATIVE (NEGATIVE); PH,URINE 7 (4.5-8.0); PROTEIN,URINE NEGATIVE (NEGATIVE); UROBILINOGEN,URINE NORMAL MG/DL (0.0-1.0)
[2018-11-25 20:58] LABS: BASOPHILS % (AUTO) 1.4 % (0.0-2.0); EOSINOPHILS % (AUTO) 4.7 % (0.0-3.0); HEMATOCRIT 37.6 % (42.0-52.0); HEMOGLOBIN 12.6 G/DL (14.2-18.0); LYMPHOCYTES % (AUTO) 17.7 % (20.0-45.0); MEAN CORPUSCULAR VOLUME 90 FL (80-99); MONOCYTES % (AUTO) 7.5 % (1.0-10.0); NEUTROPHILS % (AUTO) 68.8 % (45.0-75.0); PLATELET COUNT 208 K/UL (150-450); RED BLOOD COUNT 4.19 M/UL (4.70-6.10); RED CELL DISTRIBUTION WIDTH 12.5 % (11.6-14.8); WHITE BLOOD COUNT 9.9 K/UL (4.8-10.8)
[2018-11-25 20:59] LABS: ANION GAP 6 mmol/L (5-15); BLOOD UREA NITROGEN 21 mg/dL (7-18); CALCIUM 8.7 MG/DL (8.5-10.1); CARBON DIOXIDE 28 MMOL/L (21-32); CHLORIDE 98 MMOL/L (98-107); CREATININE 1.3 MG/DL (0.55-1.30); POTASSIUM 3.5 MMOL/L (3.5-5.1); SODIUM 132 MMOL/L (136-145)
[2018-11-25 21:13] LABS: ALANINE AMINOTRANSFERASE 33 U/L (12-78); ALBUMIN 3.6 G/DL (3.4-5.0); ALBUMIN/GLOBULIN RATIO 1.1 (1.0-2.7); ALKALINE PHOSPHATASE 86 U/L (46-116); ASPARTATE AMINO TRANSFERASE 24 U/L (15-37); BILIRUBIN,TOTAL 0.2 MG/DL (0.2-1.0); CKMB 0.6 NG/ML (0.0-3.6); CREATINE KINASE 62 U/L (26-308)
--- NOTE | 2018-11-25 22:49 | NUR ---
ED Nurse Note: Gave report to Ambulance personnel for pickup. [facility] called and given ETA for pickup. Pt stable and ambulatory.
[2018-11-25 22:51] VITALS: BP 125/84
--- NOTE | 2018-11-26 11:48 | Diagnostic Imaging Report ---
Indication: Dyspnea Comparison: November 14, 2018 A single view chest radiograph was obtained. Findings: Pulmonary vascularity is slightly increased. There are mild interstitial densities. Old rib fractures are noted on the right. Heart is mildly enlarged. IMPRESSION: Query mild interstitial edema
== END 2018-11-25 22:54 | disposition home or self-care (01) ==
LOC: EDBD 19:52 → EMR 20:15
DX: J44.9 Chronic obstructive pulmonary disease, unspecified (principal); K21.9 Gastro-esophageal reflux disease without esophagitis; F29 Unspecified psychosis not due to a substance or known physiological condition; Z88.8 Allergy status to other drugs, medicaments and biological substances
CPT/HCPCS: 36415; 71045; 80053; 81003; 82550; 82553; 83605; 84484; 85025; 86710; 87040; 93005; 94640; 94664; 99284; J7620

== ENCOUNTER 2018-12-30 03:55 | Emergency (ER) | payer MEDICARE, OTHER ==
[~2018-12-30] VITALS: Ht 177.8 cm; Wt 86.2 kg
[~2018-12-30 03:55] MED LIST changes: +DUCOLAX RECTAL
[2018-12-30] MEDS ORDERED: Albuterol ud Inhalation HHN ONE (04:00)
[2018-12-30] MEDS ORDERED: Magnesium Citrate Liq Btl ORAL ONE (04:00)
[2018-12-30] MEDS ORDERED: BENZTROPINE ME0.5 MG PO (04:09)
[2018-12-30 04:10] VITALS: BP 140/90
--- NOTE | 2018-12-30 04:10 | NUR ---
ER Nurse Note: Pt [facility] from [facility] c/o abd pain due to being constipated for five days. Per EMS, pt had a bowel movement last night but still complains of pain. Pt stated he has not had a bowel movement in five days. Pt a&ox3, VSS. Pt is yelling, stating "he hates the nurse that takes care of him at [facility] and he has not had a bowel movement in days". Bowel sounds heard in all quadrants, stomach round. ERMD at pt side; will continue to montior.
--- NOTE | 2018-12-30 05:00 | NUR ---
ER Nurse Note: Pt yelling, getting out of bed. Pt becoming agitated becuase he cound not have a bowel movement. Instructed pt to stay in bed due to fall risk; tried to calmly communiate with pt. Pt kept yelling. All safety measures met; no falls, will continue to montior. Awaiting transporation back home.
--- NOTE | 2018-12-30 05:01 | Emergency Room Report ---
History of Present Illness General Chief Complaint: Abdominal Pain Source: Patient Present Illness HPI Patient presents with reports that he has been constipated for several days Was not given his Dulcolax Also reports that he has not been getting his magnesium citrate Denies any chest pain patient has chronic COPD Initially did not have any complaints of short of breath however appeared to be somewhat short of breath Denies any vomiting or diarrhea denies any fevers or chills Allergies: Coded Allergies: CHLORPROMAZINE (Unverified Allergy, Unknown, 05/24/18) CLOZAPINE (Unverified Allergy, Unknown, 05/24/18) DIVALPROEX SODIUM (Unverified Allergy, Unknown, 05/24/18) HALOPERIDOL (Unverified Allergy, Unknown, 05/24/18) SERTRALINE (Unverified Allergy, Unknown, 05/24/18) Uncoded Allergies: CLOZASIL (Allergy, Unknown, 07/23/18) Patient History Past Medical History: see triage record Pertinent Family History: none Reviewed Nursing Documentation: PMH: Agreed; PSxH: Agreed Nursing Documentation-PMH Past Medical History: No History, Except For Hx Cardiac Problems: Yes - Chest pain, unspecified Hx Asthma: Yes Hx COPD: Yes Hx Diabetes: No - Hypothyroid Hx Cancer: Yes Hx Gastrointestinal Problems: Yes - GERD Hx Dialysis: No - AKF; BPH Hx Seizures: Yes Review of Systems All Other Systems: negative except mentioned in HPI Physical Exam Vital Signs Date Time Temp Pulse Resp B/P (MAP) Pulse Ox O2 Delivery O2 Flow Rate FiO2 12/30/18 03:58 97.5 86 16 140/90 93 Room Air 12/30/18 04:11 21 Sp02 EP Interpretation: reviewed, normal General Appearance: well appearing, no apparent distress Head: normocephalic, atraumatic Eyes: bilateral eye PERRL, bilateral eye EOMI ENT: hearing grossly normal, TMs + canals normal, uvula midline, other - Poor dentition Neck: full range of motion, supple, no meningismus, no bony tend Respiratory: no rhonchi, no respiratory distress, no retraction, no accessory muscle use, crackles - With fine wheezing bilaterally Cardiovascular #1: normal peripheral pulses, regular rate, rhythm, no edema, no gallop, no JVD, no murmur Gastrointestinal: normal bowel sounds, non tender, soft, no mass, no organomegaly, non-distended, no guarding, no hernia, no pulsatile mass, no rebound Genitourinary: no CVA tenderness Neurologic: oriented x3, responsive, book trimmer III-XII nml as tested, motor strength/ tone normal, sensory intact Psychiatric: mood/affect normal Skin: normal color, no rash, warm/dry, palpation normal Lymphatic: normal inspection, no adenopathy Medical Decision Making Diagnostic Impression: Primary Impression: Abdominal bloating Additional Impression: Abdominal pain ER Course With the history exam and presentation, multiple differentials considered, including but not limited to appendicitis, gastritis, cholecystitis, diverticulitis Given the patient's history and presentation imaging study was obtained Patient also provided with magnesium citrate Breathing treatment also provided has done significantly better CT imaging was interpreted as possible low-grade infectious etiology, patient however does not have any diarrhea has not had any fevers clinically wanted to rule out any obvious obstruction given the constipation presentation, And stable for close outpatient follow-up CT/MRI/US Diagnostic Results CT/MRI/US Diagnostic Results : Impression CT abdomen pelvisRead by radiology as low-grade infectious etiology Last Vital Signs Date Time Temp Pulse Resp B/P (MAP) Pulse Ox O2 Delivery O2 Flow Rate FiO2 12/30/18 04:21 72 18 99 Room Air 21 12/30/18 03:58 97.5 140/90 Status: improved Disposition: XFER SNF Condition: Improved Referrals: Mansoor Villafuerte DO (PCP) Additional Instructions: Patient is provided with the discharge instructions notified to follow up with primary doctor in the next 2-3 days otherwise return to the er with any worsening symptoms. Please note that this report is being documented using tinyclues technology. This can lead to erroneous entry secondary to incorrect interpretation by the dictating instrument. Yrn Frey DO Dec 30, 2018 05:01
--- NOTE | 2018-12-30 05:25 | Diagnostic Imaging Report ---
EXAM: CT Abdomen and Pelvis Without Intravenous Contrast. CLINICAL HISTORY: PAIN TECHNIQUE: Axial computed tomography images of the abdomen and pelvis without intravenous contrast. CTDI is 24.3 mGy and DLP is 1167 mGy-cm. One or more of the following dose reduction techniques were used: automated exposure control, adjustment of the mA and/or kV according to patient size, use of iterative reconstruction technique. COMPARISON: 05/24/18. FINDINGS: Lower thorax: No acute findings. Mild emphysema. Small hiatal hernia. ABDOMEN: Liver: Unremarkable. Gallbladder and bile ducts: Unremarkable. No calcified stones. No ductal dilation. Pancreas: Unremarkable. No ductal dilation. Spleen: Unremarkable. No splenomegaly. Adrenals: Unremarkable. No mass. Kidneys and ureters: No evidence of nephrolithiasis or obstructive uropathy. Bilateral renal cysts. PELVIS: Bladder: Unremarkable. No stones. Reproductive: Unremarkable as visualized. Appendix: No findings to suggest acute appendicitis. ABDOMEN + PELVIS: Stomach and bowel: No bowel obstruction. Nondistended fluid-filled loops of small bowel seen throughout the abdomen, with liquid stool noted in the proximal to mid colon. Findings are suggestive of low-grade infectious/inflammatory enterocolitis. No definite bowel wall thickening or pneumatosis. No significant mesenteric edema. Peritoneum: Unremarkable. No significant fluid collection. No free air. Lymph nodes: Unremarkable. No enlarged lymph nodes. Vasculature: Unremarkable. No aortic aneurysm. Bones: No acute fracture. Chronic bilateral L5 spondylolysis. IMPRESSION: Findings suggestive of low-grade infectious/inflammatory enterocolitis.
[2018-12-30] MEDS ORDERED: Milk of Magnesia 30ml Ud ORAL ONE (05:30)
[2018-12-30 05:55] VITALS: BP 148/75
--- NOTE | 2018-12-30 05:55 | NUR ---
ER Nurse Note: Pt seen, treated, medically cleared for discharge by ERMD. All orders completed per ERMD orders. Discharge instructions given with repeat verbalization by pt. Instructed pt to follow up [facility] primary care physican within one week. Pt a&ox4, VSS, no signs of distress.Pt tried to use the restroom after taking meds. Pt yelled "I hate you, this place did no help". ID band removed. Pt left with all belongings, left with BLS.
== END 2018-12-30 05:55 ==
LOC: EDUNIT# 03:55 → EDBD 03:55 → EMR 04:08
DX: R14.0 Abdominal distension (gaseous) (principal); R10.9 Unspecified abdominal pain; J44.9 Chronic obstructive pulmonary disease, unspecified; K21.9 Gastro-esophageal reflux disease without esophagitis; Z88.8 Allergy status to other drugs, medicaments and biological substances
CPT/HCPCS: 74176; 94640; 94664; 99284

== ENCOUNTER 2019-06-11 04:19 | Inpatient (IN) | payer MEDICARE, OTHER ==
[~2019-06-11] VITALS: Ht 175.3 cm; Wt 63.5 kg
[~2019-06-11 04:19] MED LIST changes: +BENZTROPINE ME0.5 MG PO
[2019-06-11 04:21] VITALS: BP 116/77
--- NOTE | 2019-06-11 05:00 | Emergency Room Report ---
History of Present Illness General Chief Complaint: Laceration Source: Patient, Medical Record, EMS Present Illness HPI This is a 63-year-old male who has a history of schizophrenia COPD. He presents with chief complaint of agitation. He was recently admitted to [facility]. He did not like it there and was being aggressive. He took a cane and try to cut his right arm. Staff called 911 and sent him here for evaluation. Patient denies any other complaint. Said he does not like [facility]. Does not want to stay there. Denies suicidal thoughts homicidal thought. No other complaint. Allergies: Coded Allergies: CHLORPROMAZINE (Unverified Allergy, Unknown, 05/24/18) CLOZAPINE (Unverified Allergy, Unknown, 05/24/18) DIVALPROEX SODIUM (Unverified Allergy, Unknown, 05/24/18) HALOPERIDOL (Unverified Allergy, Unknown, 05/24/18) PENICILLINS (Verified Allergy, Unknown, 06/11/19) SERTRALINE (Unverified Allergy, Unknown, 05/24/18) Uncoded Allergies: CLOZASIL (Allergy, Unknown, 07/23/18) Patient History Past Medical History: see triage record, old chart reviewed, COPD, psych hx Past Surgical History: none Pertinent Family History: none Social History: Reports: smoking Immunizations: other Reviewed Nursing Documentation: PMH: Agreed; PSxH: Agreed Nursing Documentation-PMH Past Medical History: No History, Except For Hx Cardiac Problems: Yes - CHRONIC RENAL FAILURE Hx Asthma: Yes Hx COPD: Yes Hx Diabetes: No - Hypothyroid Hx Cancer: Yes Hx Gastrointestinal Problems: Yes - GERD Hx Dialysis: No - AKF; BPH History Of Psychiatric Problem: Yes Hx Seizures: Yes Review of Systems Eye: Denies: eye pain, blurred vision ENT: Denies: ear pain, nose congestion, throat swelling Respiratory: Denies: cough, shortness of breath Cardiovascular: Denies: chest pain, palpitations Gastrointestinal: Denies: abdominal pain, diarrhea, nausea, vomiting Musculoskeletal: Denies: back pain, joint pain Skin: Denies: rash Neurological: Denies: headache, numbness Endocrine: Denies: increased thirst, increased urine Hematologic/Lymphatic: Denies: easy bruising All Other Systems: negative except mentioned in HPI Physical Exam Vital Signs Date Time Temp Pulse Resp B/P (MAP) Pulse Ox O2 Delivery O2 Flow Rate FiO2 7/30/19 04:16 97.9 95 16 116/77 (90) 95 Room Air Vitals normal Sp02 EP Interpretation: reviewed, normal General Appearance: well appearing, no apparent distress, alert Head: normocephalic, atraumatic Eyes: bilateral eye PERRL, bilateral eye EOMI ENT: hearing grossly normal, normal pharynx Neck: full range of motion, supple, no meningismus Respiratory: chest non-tender, lungs clear, normal breath sounds Cardiovascular #1: regular rate, rhythm, no murmur Gastrointestinal: normal bowel sounds, non tender, no mass, no organomegaly, no bruit, non-distended Musculoskeletal: back normal, gait/station normal, normal range of motion, other - Forearm with superficial abrasion Neurologic: alert, oriented x3, responsive Psychiatric: mood/affect normal Medical Decision Making Diagnostic Impression: Primary Impression: UTI (urinary tract infection) Qualified Codes: N30.00 - Acute cystitis without hematuria Additional Impression: Agitation ER Course Agitation in UTI. He did not want to stay the detention so we try to hurt himself. Injury is very minor and superficial. Will admit for psychiatric evaluation and antibiotics. I discussed the case with Dr. Villafuerte who will admit. Last Vital Signs Date Time Temp Pulse Resp B/P (MAP) Pulse Ox O2 Delivery O2 Flow Rate FiO2 06/11/19 04:21 97.9 95 16 116/77 95 Room Air Status: improved Disposition: ADMITTED INPATIENT Condition: Serious Referrals: Mansoor Villafuerte DO (PCP) Alex Smith MD Jun 11, 2019 05:00
[2019-06-11 05:06] LABS: BASOPHILS % (AUTO) 0.9 % (0.0-2.0); EOSINOPHILS % (AUTO) 2.6 % (0.0-3.0); HEMOGLOBIN 12.1 G/DL (14.2-18.0); LYMPHOCYTES % (AUTO) 17.1 % (20.0-45.0); MEAN CORPUSCULAR VOLUME 93 FL (80-99); MONOCYTES % (AUTO) 6.8 % (1.0-10.0); NEUTROPHILS % (AUTO) 72.5 % (45.0-75.0); PLATELET COUNT 215 K/UL (150-450); RED BLOOD COUNT 3.98 M/UL (4.70-6.10); RED CELL DISTRIBUTION WIDTH 14.2 % (11.6-14.8); WHITE BLOOD COUNT 9.9 K/UL (4.8-10.8)
--- NOTE | 2019-06-11 05:06 | NUR ---
ED Nurse Note: Patient was BIBA from SNF due t right arm laceration. Stated that did it with can, because dont want to stay at that facility. AAO x3, VSS at this time, skin warm to touch. Patient presented with abrasion on his right forearm.
[2019-06-11 05:17] LABS: ANION GAP 6 mmol/L (5-15); BILIRUBIN, URINE NEGATIVE (NEGATIVE); BLOOD UREA NITROGEN 16 mg/dL (7-18); CALCIUM 9.1 MG/DL (8.5-10.1); CARBON DIOXIDE 31 MMOL/L (21-32); CHLORIDE 101 MMOL/L (98-107); COLOR,URINE PALE YELLOW; CREATININE 1.6 MG/DL (0.55-1.30); GLUCOSE, URINE (UA) NEGATIVE (NEGATIVE); KETONES,URINE NEGATIVE (NEGATIVE); LEUKOCYTE ESTERASE ,URINE 3+ (NEGATIVE); NITRITE,URINE POSITIVE (NEGATIVE); PH,URINE 7 (4.5-8.0); POTASSIUM 3.9 MMOL/L (3.5-5.1); PROTEIN,URINE 2+ (NEGATIVE); SODIUM 138 MMOL/L (136-145); UROBILINOGEN,URINE NORMAL MG/DL (0.0-1.0)
[2019-06-11 05:30] LABS: APPEARANCE,URINE SLIGHTLY CLOUDY
[2019-06-11] MEDS ORDERED: cefTRIAXone 1 GM in NS 55 ML IVPB ONE (05:45)
--- NOTE | 2019-06-11 06:51 | NUR ---
ED Nurse Note: Patient was admited to [facility] due t UTI, agitation. AAO x4, VSS at this time, skin is warm to touch. Patient was transfered to the unit via gurney, with all belongings.
[2019-06-11 06:57] VITALS: BP 116/79
--- NOTE | 2019-06-11 07:33 | NUR ---
NURSE NOTES: Patient awake alert x4, on room air, no sign of distress and shortness of breath; no sign of chest pain; IV LAC 20G flushes well; Ramirez in place, drains urine well; side rails up x2, breaks engaged, bed at lowest position. will communicate MD Villafuerte to get admission order. will keep monitoring.
--- NOTE | 2019-06-11 07:40 | NUR ---
NURSE NOTES: I communicated MD Villafuerte to get admission order for DVT, Code status, Diet and Medications that MD want patient to be on. Waiting for order.
[2019-06-11 08:00] VITALS: BP 118/74
[2019-06-11] MEDS ORDERED: Zolpidem 5mg tab ORAL PRN (08:45)
[2019-06-11] MEDS ORDERED: LORazepam Inj 2mg/ml 1ml IV PRN ×2 (08:45→11:15)
[2019-06-11] MEDS ORDERED: Morphine Sulfate 2mg/ml Inj(IV/IM USE ONLY) IVP PRN (08:45)
[2019-06-11] MEDS ORDERED: Miralax 17gm pkt ORAL PRN (08:45)
[2019-06-11] MEDS: Tamsulosin 0.4mg cap ORAL SCH ×2 (09:34→17:34)
[2019-06-11] MEDS: OLANZapine 10mg tab ORAL SCH ×2 (09:34→17:34)
--- NOTE | 2019-06-11 11:08 | Consultation ---
History of Present Illness General Date patient seen: Jun 11, 2019 Chief Complaint: Laceration Present Illness HPI 63-year-old male with history of schizophrenia COPD, anxiety, half-way resident presented to ER with CC of agitation. He was recently admitted to [facility]. He did not like it there and was being aggressive. He took a cane and try to cut his right arm. Staff called 911 and sent him here for evaluation. Allergies: Coded Allergies: CHLORPROMAZINE (Unverified Allergy, Unknown, 05/24/18) CLOZAPINE (Unverified Allergy, Unknown, 05/24/18) DIVALPROEX SODIUM (Unverified Allergy, Unknown, 05/24/18) HALOPERIDOL (Unverified Allergy, Unknown, 05/24/18) PENICILLINS (Verified Allergy, Unknown, 06/11/19) SERTRALINE (Unverified Allergy, Unknown, 05/24/18) Uncoded Allergies: CLOZASIL (Allergy, Unknown, 07/23/18) Medication History Scheduled Clonazepam (Klonopin), 2 MG PO TID, (Reported) Finasteride* (Proscar*), 5 MG ORAL DAILY, (Reported) Folic Acid* (Folic Acid*), 2 MG ORAL DAILY, (Reported) Levothyroxine Sodium* (Synthroid*), 100 MCG ORAL DAILY, (Reported) Olanzapine* (Zyprexa*), 10 MG ORAL BID, (Reported) Tamsulosin Hcl (Tamsulosin Hcl*), 0.4 MG ORAL BID, (Reported) Scheduled PRN Acetaminophen* (Acetaminophen Extra Strength*), 2 TAB ORAL EVERY 4 HOURS PRN for Moderate Pain (Pain Scale 4-6), (Reported) Albuterol Sulfate* (Albuterol Sulfate Hhn*), 3 ML INH Q4H PRN for Shortness of Breath, (Reported) Baclofen (Baclofen), 5 MG PO EVERY 8 HOURS PRN for Muscle Spasm, (Reported) Hydrocodone Bit/Acetaminophen 5-325* ([place] 5-325*), 1 TAB ORAL Q6H PRN for Severe Pain (Pain Scale 7-10), (Reported) Discontinued Medications Acetaminophen* (Acetaminophen 325MG Tablet*), 325 MG ORAL Q4H PRN for Mild Pain/ Temp > 100.5, (Reported) Discontinued Reason: Therapy completed Benztropine Mesylate* (Cogentin*), 1 MG PO, (Reported) Discontinued Reason: Therapy completed Bisacodyl (Bisacodyl), 10 MG RC for Constipation, (Reported) Discontinued Reason: Therapy completed Clonazepam* (Klonopin*), 2 MG ORAL TID, (Reported) Discontinued Reason: Therapy completed Cranberry Fruit Concentrate (Cranberry), 450 MG PO DAILY, (Reported) Discontinued Reason: Therapy completed Docusate Sodium* (Docusate Sodium*), 100 MG ORAL DAILY, (Reported) Discontinued Reason: Therapy completed Fluticasone/Salmeterol (Advair Hfa 115-21 Mcg Inhaler), 2 PUFFS INH EVERY 12 HOURS, (Reported) Discontinued Reason: Therapy completed Ibuprofen* (Motrin*), 600 MG ORAL THREE TIMES A DAY, (Reported) Discontinued Reason: Therapy completed Lorazepam* (Ativan*), 1 MG ORAL Q6HR PRN for For Anxiety, (Reported) Discontinued Reason: Therapy completed Magnesium Hydroxide* (Milk Of Magnesia*), 30 ML ORAL QHS PRN for Constipation, ( Reported) Discontinued Reason: Therapy completed Montelukast Sodium* (Montelukast Sodium*), 10 MG ORAL QPM, (Reported) Discontinued Reason: Therapy completed Multivitamin With Minerals (Multivitamins With Minerals*), 1 TAB ORAL DAILY, ( Reported) Discontinued Reason: Therapy completed Na Phos,M-B/Na Phos,Di-Ba* (Fleet Enema*), 133 ML RECTAL for Constipation, ( Reported) Discontinued Reason: Therapy completed Na Phos,M-B/Na Phos,Di-Ba* (Fleet Enema*), 133 ML RECTAL DAILY PRN for Constipation, (Reported) Discontinued Reason: Therapy completed Pantoprazole* (Protonix*), 40 MG ORAL BID, (Reported) Discontinued Reason: Therapy completed Topiramate* (Topamax*), 100 MG ORAL QHS, (Reported) Discontinued Reason: Therapy completed Trazodone Hcl* (Desyrel*), 100 MG ORAL BEDTIME, (Reported) Discontinued Reason: Therapy completed [ducolax supp], 10 MG RECTAL DAILY PRN for Constipation, (Reported) Discontinued Reason: Therapy completed Patient History Healthcare decision maker Resuscitation status Advanced Directive on File Past Medical/Surgical History Past Medical/Surgical History: (1) COPD (chronic obstructive pulmonary disease) (2) Psychosis (3) Hypothyroidism Review of Systems All Other Systems: negative except mentioned in HPI Physical Exam General Appearance: WD/WN Lines, tubes and drains: peripheral HEENT: normocephalic, atraumatic Neck: non-tender, normal alignment Respiratory/Chest: chest wall non-tender, lungs clear Breasts: no masses Cardiovascular/Chest: normal peripheral pulses Abdomen: normal bowel sounds Genitourinary/Rectal: normal genital exam Extremities: normal range of motion Last 24 Hour Vital Signs Date Time Temp Pulse Resp B/P (MAP) Pulse Ox O2 Delivery O2 Flow Rate FiO2 06/11/19 10:11 97.8 06/11/19 08:00 97.8 89 20 118/74 (89) 97 06/11/19 08:00 Room Air 06/11/19 06:57 97.5 82 16 116/79 (91) 98 06/11/19 06:35 97.9 95 16 116/77 95 Room Air 06/11/19 04:21 97.9 95 16 116/77 95 Room Air 06/11/19 04:16 97.9 95 16 116/77 (90) 95 Room Air Intake and Output 06/10/19 06/11/19 19:00 07:00 Output Total 500 ml Balance -500 ml Output Urine Total 500 ml Laboratory Tests Test 06/11/19 04:55 White Blood Count 9.9 K/UL (4.8-10.8) Red Blood Count 3.98 M/UL (4.70-6.10) L Hemoglobin 12.1 G/DL (14.2-18.0) L Hematocrit 37.0 % (42.0-52.0) L Mean Corpuscular Volume 93 FL (80-99) Mean Corpuscular Hemoglobin 30.4 PG (27.0-31.0) Mean Corpuscular Hemoglobin Concent 32.7 G/DL (32.0-36.0) Red Cell Distribution Width 14.2 % (11.6-14.8) Platelet Count 215 K/UL (150-450) Mean Platelet Volume 4.8 FL (6.5-10.1) L Neutrophils (%) (Auto) 72.5 % (45.0-75.0) Lymphocytes (%) (Auto) 17.1 % (20.0-45.0) L Monocytes (%) (Auto) 6.8 % (1.0-10.0) Eosinophils (%) (Auto) 2.6 % (0.0-3.0) Basophils (%) (Auto) 0.9 % (0.0-2.0) Urine Color Pale yellow Urine Appearance Slightly cloudy Urine pH 7 (4.5-8.0) Urine Specific [place] 1.005 (1.005-1.035) Urine Protein 2+ (NEGATIVE) H Urine Glucose (UA) Negative (NEGATIVE) Urine Ketones Negative (NEGATIVE) Urine Blood 5+ (NEGATIVE) H Urine Nitrite Positive (NEGATIVE) H Urine Bilirubin Negative (NEGATIVE) Urine Urobilinogen Normal MG/DL (0.0-1.0) Urine Leukocyte Esterase 3+ (NEGATIVE) H Urine RBC 2-4 /HPF (0 - 0) H Urine WBC Tntc /HPF (0 - 0) H Urine Squamous Epithelial Cells None /LPF (NONE/OCC) Urine Bacteria Many /HPF (NONE) H Sodium Level 138 MMOL/L (136-145) Potassium Level 3.9 MMOL/L (3.5-5.1) Chloride Level 101 MMOL/L (98-107) Carbon Dioxide Level 31 MMOL/L (21-32) Anion Gap 6 mmol/L (5-15) Blood Urea Nitrogen 16 mg/dL (7-18) Creatinine 1.6 MG/DL (0.55-1.30) H Estimat Glomerular Filtration Rate 44.2 mL/min (>60) Glucose Level 90 MG/DL (74-106) Calcium Level 9.1 MG/DL (8.5-10.1) Height (Feet): 5 Height (Inches): 9.00 Weight (Pounds): 180 Medications Current Medications Medications (Trade) Dose Ordered Sig/Cori Route PRN Reason Start Time Stop Time Status Last Admin Dose Admin Acetaminophen (Tylenol) 650 mg Q4H PRN ORAL fever 06/11/19 08:45 07/11/19 08:44 Dextrose (Dextrose 50%) 25 ml Q30M PRN IV Hypoglycemia 06/11/19 08:45 07/11/19 08:44 Dextrose (Dextrose 50%) 50 ml Q30M PRN IV Hypoglycemia 06/11/19 08:45 07/11/19 08:44 Finasteride (Proscar) 5 mg DAILY ORAL 06/11/19 09:00 07/11/19 08:59 06/11/19 09:34 Levothyroxine Sodium (Synthroid) 100 mcg DAILY ORAL 06/11/19 09:00 07/11/19 08:59 06/11/19 09:34 Lorazepam (Ativan 2mg/ml 1ml) 0.5 mg Q4H PRN IV For Anxiety 06/11/19 08:45 06/18/19 08:44 Morphine Sulfate (Morphine Sulfate) 1 mg Q4H PRN IVP For Pain 06/11/19 08:45 06/18/19 08:44 06/11/19 09:41 Olanzapine (ZyPREXA) 10 mg BID ORAL 06/11/19 09:00 07/11/19 08:59 06/11/19 09:34 Ondansetron HCl (Zofran) 4 mg Q6H PRN IVP Nausea & Vomiting 06/11/19 08:45 07/11/19 08:44 Polyethylene Glycol (Miralax) 17 gm HSPRN PRN ORAL Constipation 06/11/19 08:45 07/11/19 08:44 Tamsulosin HCl (Flomax) 0.4 mg BID ORAL 06/11/19 09:00 07/11/19 08:59 06/11/19 09:34 Zolpidem Tartrate (Ambien) 5 mg HSPRN PRN ORAL Insomnia 06/11/19 08:45 06/18/19 08:44 Assessment/Plan Problem List: (1) Acute encephalopathy ICD Codes: G93.40 - Encephalopathy, unspecified SNOMED: 99909753, 069803746 (2) Agitation ICD Codes: R45.1 - Restlessness and agitation SNOMED: 208931271 (3) COPD (chronic obstructive pulmonary disease) ICD Codes: J44.9 - Chronic obstructive pulmonary disease, unspecified SNOMED: 96582635 (4) Hypothyroidism ICD Codes: E03.9 - Hypothyroidism, unspecified SNOMED: 29768067 (5) Anemia ICD Codes: D64.9 - Anemia, unspecified SNOMED: 518670829 (6) Psychosis ICD Codes: F29 - Unspecified psychosis not due to a substance or known physiological condition SNOMED: 12655818 Assessment/Plan: psych evaluation resume Klonopin and psych meds respiratory treatment check electrolytes, f/u increased creatinine. dvt prophylaxis. Murali Allen MD Jun 11, 2019 11:08
[2019-06-11 11:48] LABS: CREATINE KINASE 32 U/L (26-308)
--- NOTE | 2019-06-11 11:49 | Consultation ---
History of Present Illness General Date patient seen: Jun 11, 2019 Chief Complaint: Laceration Present Illness HPI 63 y/o M with hx of schizophrenia, COPD/asthma, GERD, BPH, seizure disorder, CKD , hypothyroidism, anxiety disorder, [place] resident presented to ED on 06/11 with agitation. Patient was recently admitted to [facility]; he did not like it there and was being aggressive. He took a cane and try to cut his R arm. Staff called 911 and sent him here for evaluation. Denied suicidal and homicidal thoughts. ID consulted for pyuria. Allergies: Coded Allergies: CHLORPROMAZINE (Unverified Allergy, Unknown, 05/24/18) CLOZAPINE (Unverified Allergy, Unknown, 05/24/18) DIVALPROEX SODIUM (Unverified Allergy, Unknown, 05/24/18) HALOPERIDOL (Unverified Allergy, Unknown, 05/24/18) PENICILLINS (Verified Allergy, Unknown, 06/11/19) SERTRALINE (Unverified Allergy, Unknown, 05/24/18) Uncoded Allergies: CLOZASIL (Allergy, Unknown, 07/23/18) Medication History Scheduled Clonazepam (Klonopin), 2 MG PO TID, (Reported) Finasteride* (Proscar*), 5 MG ORAL DAILY, (Reported) Folic Acid* (Folic Acid*), 2 MG ORAL DAILY, (Reported) Levothyroxine Sodium* (Synthroid*), 100 MCG ORAL DAILY, (Reported) Olanzapine* (Zyprexa*), 10 MG ORAL BID, (Reported) Tamsulosin Hcl (Tamsulosin Hcl*), 0.4 MG ORAL BID, (Reported) Scheduled PRN Acetaminophen* (Acetaminophen Extra Strength*), 2 TAB ORAL EVERY 4 HOURS PRN for Moderate Pain (Pain Scale 4-6), (Reported) Albuterol Sulfate* (Albuterol Sulfate Hhn*), 3 ML INH Q4H PRN for Shortness of Breath, (Reported) Baclofen (Baclofen), 5 MG PO EVERY 8 HOURS PRN for Muscle Spasm, (Reported) Hydrocodone Bit/Acetaminophen 5-325* ([place] 5-325*), 1 TAB ORAL Q6H PRN for Severe Pain (Pain Scale 7-10), (Reported) Discontinued Medications Acetaminophen* (Acetaminophen 325MG Tablet*), 325 MG ORAL Q4H PRN for Mild Pain/ Temp > 100.5, (Reported) Discontinued Reason: Therapy completed Benztropine Mesylate* (Cogentin*), 1 MG PO, (Reported) Discontinued Reason: Therapy completed Bisacodyl (Bisacodyl), 10 MG RC for Constipation, (Reported) Discontinued Reason: Therapy completed Clonazepam* (Klonopin*), 2 MG ORAL TID, (Reported) Discontinued Reason: Therapy completed Cranberry Fruit Concentrate (Cranberry), 450 MG PO DAILY, (Reported) Discontinued Reason: Therapy completed Docusate Sodium* (Docusate Sodium*), 100 MG ORAL DAILY, (Reported) Discontinued Reason: Therapy completed Fluticasone/Salmeterol (Advair Hfa 115-21 Mcg Inhaler), 2 PUFFS INH EVERY 12 HOURS, (Reported) Discontinued Reason: Therapy completed Ibuprofen* (Motrin*), 600 MG ORAL THREE TIMES A DAY, (Reported) Discontinued Reason: Therapy completed Lorazepam* (Ativan*), 1 MG ORAL Q6HR PRN for For Anxiety, (Reported) Discontinued Reason: Therapy completed Magnesium Hydroxide* (Milk Of Magnesia*), 30 ML ORAL QHS PRN for Constipation, ( Reported) Discontinued Reason: Therapy completed Montelukast Sodium* (Montelukast Sodium*), 10 MG ORAL QPM, (Reported) Discontinued Reason: Therapy completed Multivitamin With Minerals (Multivitamins With Minerals*), 1 TAB ORAL DAILY, ( Reported) Discontinued Reason: Therapy completed Na Phos,M-B/Na Phos,Di-Ba* (Fleet Enema*), 133 ML RECTAL for Constipation, ( Reported) Discontinued Reason: Therapy completed Na Phos,M-B/Na Phos,Di-Ba* (Fleet Enema*), 133 ML RECTAL DAILY PRN for Constipation, (Reported) Discontinued Reason: Therapy completed Pantoprazole* (Protonix*), 40 MG ORAL BID, (Reported) Discontinued Reason: Therapy completed Topiramate* (Topamax*), 100 MG ORAL QHS, (Reported) Discontinued Reason: Therapy completed Trazodone Hcl* (Desyrel*), 100 MG ORAL BEDTIME, (Reported) Discontinued Reason: Therapy completed [ducolax supp], 10 MG RECTAL DAILY PRN for Constipation, (Reported) Discontinued Reason: Therapy completed Patient History Healthcare decision maker Resuscitation status Advanced Directive on File Patient History Narrative Pmhx: as above Shx: Reports: smoking Fhx: non contributory Review of Systems All Other Systems: negative except mentioned in HPI Physical Exam Physical Exam Narrative General Appearance: WD/WN Lines, tubes and drains: peripheral HEENT: normocephalic, atraumatic Neck: non-tender, normal alignment Respiratory/Chest: chest wall non-tender, lungs clear Breasts: no masses Cardiovascular/Chest: normal peripheral pulses Abdomen: normal bowel sounds Extremities: normal range of motion Last 24 Hour Vital Signs Date Time Temp Pulse Resp B/P (MAP) Pulse Ox O2 Delivery O2 Flow Rate FiO2 06/11/19 10:11 97.8 06/11/19 08:00 97.8 89 20 118/74 (89) 97 06/11/19 08:00 Room Air 06/11/19 06:57 97.5 82 16 116/79 (91) 98 06/11/19 06:35 97.9 95 16 116/77 95 Room Air 06/11/19 04:21 97.9 95 16 116/77 95 Room Air 06/11/19 04:16 97.9 95 16 116/77 (90) 95 Room Air Intake and Output 06/10/19 06/11/19 19:00 07:00 Output Total 500 ml Balance -500 ml Output Urine Total 500 ml Laboratory Tests Test 06/11/19 04:55 White Blood Count 9.9 K/UL (4.8-10.8) Red Blood Count 3.98 M/UL (4.70-6.10) L Hemoglobin 12.1 G/DL (14.2-18.0) L Hematocrit 37.0 % (42.0-52.0) L Mean Corpuscular Volume 93 FL (80-99) Mean Corpuscular Hemoglobin 30.4 PG (27.0-31.0) Mean Corpuscular Hemoglobin Concent 32.7 G/DL (32.0-36.0) Red Cell Distribution Width 14.2 % (11.6-14.8) Platelet Count 215 K/UL (150-450) Mean Platelet Volume 4.8 FL (6.5-10.1) L Neutrophils (%) (Auto) 72.5 % (45.0-75.0) Lymphocytes (%) (Auto) 17.1 % (20.0-45.0) L Monocytes (%) (Auto) 6.8 % (1.0-10.0) Eosinophils (%) (Auto) 2.6 % (0.0-3.0) Basophils (%) (Auto) 0.9 % (0.0-2.0) Urine Color Pale yellow Urine Appearance Slightly cloudy Urine pH 7 (4.5-8.0) Urine Specific [place] 1.005 (1.005-1.035) Urine Protein 2+ (NEGATIVE) H Urine Glucose (UA) Negative (NEGATIVE) Urine Ketones Negative (NEGATIVE) Urine Blood 5+ (NEGATIVE) H Urine Nitrite Positive (NEGATIVE) H Urine Bilirubin Negative (NEGATIVE) Urine Urobilinogen Normal MG/DL (0.0-1.0) Urine Leukocyte Esterase 3+ (NEGATIVE) H Urine RBC 2-4 /HPF (0 - 0) H Urine WBC Tntc /HPF (0 - 0) H Urine Squamous Epithelial Cells None /LPF (NONE/OCC) Urine Bacteria Many /HPF (NONE) H Sodium Level 138 MMOL/L (136-145) Potassium Level 3.9 MMOL/L (3.5-5.1) Chloride Level 101 MMOL/L (98-107) Carbon Dioxide Level 31 MMOL/L (21-32) Anion Gap 6 mmol/L (5-15) Blood Urea Nitrogen 16 mg/dL (7-18) Creatinine 1.6 MG/DL (0.55-1.30) H Estimat Glomerular Filtration Rate 44.2 mL/min (>60) Glucose Level 90 MG/DL (74-106) Uric Acid Pending Calcium Level 9.1 MG/DL (8.5-10.1) Total Creatine Kinase Pending Height (Feet): 5 Height (Inches): 9.00 Weight (Pounds): 180 Medications Current Medications Medications (Trade) Dose Ordered Sig/Cori Route PRN Reason Start Time Stop Time Status Last Admin Dose Admin Acetaminophen (Tylenol) 650 mg Q4H PRN ORAL fever 06/11/19 08:45 07/11/19 08:44 Clonazepam (KlonoPIN) 2 mg Q6H PRN ORAL For Anxiety 06/11/19 11:15 06/18/19 11:14 Dextrose (Dextrose 50%) 25 ml Q30M PRN IV Hypoglycemia 06/11/19 08:45 07/11/19 08:44 Dextrose (Dextrose 50%) 50 ml Q30M PRN IV Hypoglycemia 06/11/19 08:45 07/11/19 08:44 Finasteride (Proscar) 5 mg DAILY ORAL 06/11/19 09:00 07/11/19 08:59 06/11/19 09:34 Levothyroxine Sodium (Synthroid) 100 mcg DAILY ORAL 06/11/19 09:00 07/11/19 08:59 06/11/19 09:34 Lorazepam (Ativan 2mg/ml 1ml) 0.5 mg Q4H PRN IV For Anxiety 06/11/19 11:15 06/18/19 08:44 Morphine Sulfate (Morphine Sulfate) 1 mg Q4H PRN IVP For Pain 06/11/19 08:45 06/18/19 08:44 06/11/19 09:41 Olanzapine (ZyPREXA) 10 mg BID ORAL 06/11/19 09:00 07/11/19 08:59 06/11/19 09:34 Ondansetron HCl (Zofran) 4 mg Q6H PRN IVP Nausea & Vomiting 06/11/19 08:45 07/11/19 08:44 Polyethylene Glycol (Miralax) 17 gm HSPRN PRN ORAL Constipation 06/11/19 08:45 07/11/19 08:44 Tamsulosin HCl (Flomax) 0.4 mg BID ORAL 06/11/19 09:00 07/11/19 08:59 06/11/19 09:34 Zolpidem Tartrate (Ambien) 5 mg HSPRN PRN ORAL Insomnia 06/11/19 08:45 06/18/19 08:44 Assessment/Plan Assessment/Plan: Abx: Ceftriaxone x1 06/11 Assessment: Aggressive behavior Afebrile No leukocytosis Pyuria -u/a wbc tnct, nit +, leuk +3; ucx p schizophrenia COPD/asthma GERD BPH seizure disorder CKD hypothyroidism anxiety disorder [place] resident Plan: -Continue to monitor off abx unless febrile, leukocytosis or urinary symptoms -f/u cx -Monitor CBC/CMP, temperatures Thank you for this consultation. Will continue to follow along with you. Discussed with Cha Santooy M.D. Jun 11, 2019 11:49
[2019-06-11 12:00] VITALS: BP 123/86
--- NOTE | 2019-06-11 12:13 | NUR ---
NURSE NOTES: Urine collected and dropped to the lab. Waiting for results. Sing posted to collect OB-Stool, hut at the toilet sit. Patient and Verifier Operator aware.
--- NOTE | 2019-06-11 13:18 | NUR ---
NURSE NOTES: Patient requested [place] for pain and breathing treatment. I communicated MD Allen regarding the matter. Waiting for order.
[2019-06-11 14:44] LABS: APPEARANCE,URINE SLIGHTLY CLOUDY; BILIRUBIN, URINE NEGATIVE (NEGATIVE); COLOR,URINE PALE YELLOW; GLUCOSE, URINE (UA) NEGATIVE (NEGATIVE); KETONES,URINE NEGATIVE (NEGATIVE); LEUKOCYTE ESTERASE ,URINE 3+ (NEGATIVE); NITRITE,URINE POSITIVE (NEGATIVE); PH,URINE 7 (4.5-8.0); PROTEIN,URINE 2+ (NEGATIVE); UROBILINOGEN,URINE NORMAL MG/DL (0.0-1.0)
--- NOTE | 2019-06-11 15:58 | NUR ---
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 97.8 HR 95 RR 16 B/P 116/77 CR 1.6 URIC ACID 7.7 UA+ PROTEIN,BLOOD,NITRITE,LEUKOCYTE ESTERASE,RBC,WBC,BACTERIA IS: CEFTRIAXONE IV ATIVAN IV ADMITTED TO MED/SURG @ 0635 MED/SURG STATUS
[2019-06-11] MEDS: HYDROcodone/Acetamin 5/325 tab ORAL PRN (17:34)
--- NOTE | 2019-06-11 18:15 | History and Physical Report ---
DATE OF ADMISSION: 06/11/2019 TIME SEEN: 1 p.m. CONSULTANTS: 1. Murali Allen M.D. 2. Lucian Celestin M.D. 3. Shantanu Way M.D. CHIEF COMPLAINT: Agitation, low back pain, UTI, confusion. BRIEF HISTORY: This is a 63-year-old male from [facility], apparently became very agitated residential. The patient was sent to [place], diagnosed with UTI, agitation, low back pain, and confusion, admitted to medical floor for further treatment. Currently, slightly confused in bed, slightly agitated, no complaint. REVIEW OF SYSTEMS: No chest pain. No shortness of breath. No nausea, vomiting, or diarrhea. PAST MEDICAL HISTORY: Includes renal failure, COPD, asthma, hypothyroid, and psychosis. PAST SURGICAL HISTORY: Right tibia. MEDICATIONS: Include clozapine, lorazepam, finasteride, levothyroxine, , morphine, zolpidem, and ceftriaxone. ALLERGIES: Chlorpromazine, clozapine, Clozaril, divalproex, Haldol, and sertraline. SOCIAL HISTORY: No smoking. No alcohol. No intravenous drug abuse. FAMILY HISTORY: Noncontributory. PHYSICAL EXAMINATION: GENERAL: Calm in bed, oriented x1, in no acute distress. VITAL SIGNS: Temperature 98, pulse 105, respirations 20, and blood pressure 123/86. CARDIOVASCULAR: No murmur. LUNGS: Distant and clear. ABDOMEN: Positive bowel sounds. Soft, nontender and nondistended. EXTREMITIES: No cyanosis, clubbing or edema. NEUROLOGIC: The patient moves all extremities, slightly weak LABORATORY AND DIAGNOSTIC DATA: Labs at this time show H and H of 12/37, otherwise CBC is normal. BMP showed creatinine 1.6, otherwise BMP is normal. Urinalysis show 5+ blood, 3+ leukocyte esterase. ASSESSMENT: 1. Urinary tract infection. 2. Low back pain. 3. Confusion. 4. Bipolar. 5. Anemia. 6. Renal failure. 7. Chronic obstructive pulmonary disease. 8. Asthma. 9. Hypothyroid. 10. Psychosis. PLAN: 1. Antibiotics per Infectious Disease. 2. IV fluids. 3. PT and dietary evaluation. 4. CBC and BMP in the morning. 5. Resume home medications. 6. We will continue to follow this patient. Mansoor Villafuerte D.O. DR: THOMAS JOB#: [id number] CC:
--- NOTE | 2019-06-11 19:23 | NUR ---
HAND-OFF: Report given to KAROLINE Villela.
[2019-06-11 20:00] VITALS: BP 100/67
--- NOTE | 2019-06-11 20:00 | NUR ---
NURSE NOTES: Patient received in bed, asleep, no acute distress at this time. Ramirez draining via gravity. Call light within reach.
--- NOTE | 2019-06-11 22:10 | CDS Physician Query ---
Clarification is required for compliance, coding accuracy, and to reflect severity of illness for this patient Dear Dr. Villafuerte Date: 06/11/19 CDS Name:Ricky Noble "Renal Failure" is documented in H&P. Creatinine on admission: 1.6 Rx: IV Fluids Please Clarify the type of renal failure below: [ ] Acute Renal Failure w/ Tubular Necrosis [ ] Acute Renal Failure w/ Cortical Necrosis [ ] Acute Renal Failure w/ Medullary Necrosis [ ] Acute Renal Failure (unspecified) [ ] Other: If Chronic, please specify the stage: [ ] CKD Stage 1 [ ] CKD Stage 2 [ ] CKD Stage 3 [ ] CKD Stage 4 [ ] CKD Stage 5 [ ] ESRD [ ] Not applicable Present on Admission: [ ] Yes [ ] No [ ] Clinically Undetermined Physician signature Date Please also document in your Progress Notes and/or Discharge Summary and indicate if the condition was present on admission. CANDACE
[2019-06-12] VITALS: BP 117/77
[2019-06-12] MEDS: HYDROcodone/Acetamin 5/325 tab ORAL PRN ×5 (00:21→21:32)
--- NOTE | 2019-06-12 03:00 | NUR ---
HAND-OFF: Report given to Mindi RAMEY.
--- NOTE | 2019-06-12 03:45 | Consultation ---
DATE OF CONSULTATION: 06/11/2019 PSYCHOTHERAPY CONSULTATION PROGRESS NOTE CONSULTING PHYSICIAN: Segundo Holley PsyD. TREATING ATTENDING PHYSICIAN: Mansoor Villafuerte D.O. HISTORY OF PRESENT ILLNESS: The patient is a 63-year-old male patient from [facility]. The patient was brought into the hospital for agitation and aggression his right arm. For these reasons, the patient was also assessed. The patient at this time denies homicidal or suicidal ideation. He states that he cut himself because he did not want to be in the nursing facility. He is very agitated and irritable. The patient is also taking pain medication constantly. He has been very aggravated, impulsive, and argumentative. The patient has no logical or viable plan for self-care and safety. The patient will be transferred to [facility] for continuation of care after [facility]. The patient does have a history of mental illness including schizoaffective disorder and he has a history of an impulse behavior. PAST MEDICAL HISTORY: Includes a history of COPD. ALLERGIES: The patient has allergies to , clozapine, Clozaril, divalproex sodium, haloperidol, penicillin, and sertraline. SUBSTANCE ABUSE HISTORY: The patient denies history of alcohol use, illicit substance use, or smoking cigarettes. PSYCHIATRIC HISTORY: The patient has a history of schizoaffective disorder and has been treated with psychotropic medications in the past. SOCIAL HISTORY: The patient is a 63-year-old male patient from [facility]. Financially sustained through . MENTAL STATUS EXAMINATION: The patient is alert and oriented to person, place, and time. His mood is irritable. Affect is labile. Thought process, disorganized. Thought content, delusional. He is very paranoid. He has poor attention and concentration. Poor insight, judgment, and impulse control. The patient states that and he is very irritable at this time. The patient continues to remain impulsive. DIAGNOSIS: Schizoaffective disorder, bipolar type. I ASSESSED THIS PATIENT. I PROVIDED THE PATIENT WITH: 1. Reality orientation, which is focused on improving the cognitive function of the patient who is confused and disorganized. Oriented to place, person, time, and situation. 2. I provided the patient with supportive psychotherapy which would provide the patient with emotional outlet and means to cope with his emotional distress. We discussed rationality impulse control strategies . Plan to maintain medication compliance with positive coping skills, and stabilizing the thoughts and behavior. Psychotherapy provided to this patient is 50 minutes. RECOMMENDATIONS: This patient will be transferred to [facility] after . This clinician has reviewed the patient's chart. Discussed treatment with treatment team. Segundo Holley PsyD. DR: BELINDA JOB#: [id number] CC:
[2019-06-12 06:23] LABS: BASOPHILS % (AUTO) 0.6 % (0.0-2.0); HEMATOCRIT 38.9 % (42.0-52.0); HEMOGLOBIN 12.7 G/DL (14.2-18.0); LYMPHOCYTES % (AUTO) 9.9 % (20.0-45.0); MEAN CORPUSCULAR VOLUME 94 FL (80-99); MONOCYTES % (AUTO) 7.4 % (1.0-10.0); NEUTROPHILS % (AUTO) 79.2 % (45.0-75.0); PLATELET COUNT 222 K/UL (150-450); RED BLOOD COUNT 4.14 M/UL (4.70-6.10); RED CELL DISTRIBUTION WIDTH 14.4 % (11.6-14.8); WHITE BLOOD COUNT 8.8 K/UL (4.8-10.8)
[2019-06-12 06:33] LABS: INR 0.9 (0.9-1.1)
[2019-06-12 06:48] LABS: % IRON SATURATION 13 % (15-50); IRON 36 ug/dL (50-175); TOTAL IRON BINDING CAPACITY 284 ug/dL (250-450)
[2019-06-12 06:50] LABS: ALANINE AMINOTRANSFERASE 21 U/L (12-78); ALBUMIN 3.3 G/DL (3.4-5.0); ALBUMIN/GLOBULIN RATIO 0.8 (1.0-2.7); ALKALINE PHOSPHATASE 82 U/L (46-116); ANION GAP 9 mmol/L (5-15); ASPARTATE AMINO TRANSFERASE 16 U/L (15-37); BILIRUBIN,TOTAL 0.5 MG/DL (0.2-1.0); BLOOD UREA NITROGEN 17 mg/dL (7-18); CALCIUM 9.8 MG/DL (8.5-10.1); CARBON DIOXIDE 27 MMOL/L (21-32); CHLORIDE 108 MMOL/L (98-107); CHOLESTEROL 217 MG/DL (< 200); CREATININE 1.6 MG/DL (0.55-1.30); HDL CHOLESTEROL 80 MG/DL (40-60); POTASSIUM 4.3 MMOL/L (3.5-5.1); SODIUM 144 MMOL/L (136-145); TRIGLYCERIDES 144 MG/DL (30-150)
[2019-06-12 07:10] LABS: LACTATE DEHYDROGENASE 263 U/L (81-234)
--- NOTE | 2019-06-12 07:19 | NUR ---
HAND-OFF: Report given to Mounika Carrizales RN.
--- NOTE | 2019-06-12 07:53 | NUR ---
NURSE NOTES: Patient alert x4, on room air, no sign of distress and shortness of breath; no sing of chest pain; IV LAC 20G flushes well; Ramirez drains yellow urine; side rails up x2, breaks engaged, bed at lowest position, call light within reach; will keep monitoring.
[2019-06-12 08:00] VITALS: BP 103/72
[2019-06-12] MEDS: OLANZapine 10mg tab ORAL SCH ×2 (08:17→17:18)
[2019-06-12] MEDS: Tamsulosin 0.4mg cap ORAL SCH ×2 (08:17→17:18)
--- NOTE | 2019-06-12 09:20 | NUR ---
PT EVALUATION NOTE Patient seen for initial evaluation, see complete evaluation for details. Patient is at independent level for bed mobility, supervised level for transfers and ambulation without assistive device. Patient appears to be at baseline level of function, skilled inpatient PT intervention not warranted. Patient discharged from PT, cleared to ambulate with nursing supervision. Nicole RAMEY notified. Addendum: 06/12/19 at 1048 by ROBB CHARLES PT Amended: Links added.
--- NOTE | 2019-06-12 09:25 | NUR ---
NURSE NOTES: Stool collected and sent to lab. Waiting for result.
--- NOTE | 2019-06-12 09:44 | General Progress Note ---
Assessment/Plan Problem List: (1) UTI (urinary tract infection) ICD Codes: N39.0 - Urinary tract infection, site not specified SNOMED: 39099943 Qualifiers: Qualified Codes: N30.00 - Acute cystitis without hematuria (2) COPD exacerbation ICD Codes: J44.1 - Chronic obstructive pulmonary disease with (acute) exacerbation SNOMED: 046520759 (3) ATN (acute tubular necrosis) ICD Codes: N17.0 - Acute kidney failure with tubular necrosis SNOMED: 35043165 (4) Asthma ICD Codes: J45.909 - Unspecified asthma, uncomplicated SNOMED: 925401156 (5) Agitation ICD Codes: R45.1 - Restlessness and agitation SNOMED: 818657563 Status: stable, progressing Assessment/Plan: pt diet abx cbc bmp am Subjective Constitutional: Reports: weakness Allergies: Coded Allergies: CHLORPROMAZINE (Unverified Allergy, Unknown, 05/24/18) CLOZAPINE (Unverified Allergy, Unknown, 05/24/18) DIVALPROEX SODIUM (Unverified Allergy, Unknown, 05/24/18) HALOPERIDOL (Unverified Allergy, Unknown, 05/24/18) PENICILLINS (Verified Allergy, Unknown, 06/11/19) SERTRALINE (Unverified Allergy, Unknown, 05/24/18) Uncoded Allergies: CLOZASIL (Allergy, Unknown, 07/23/18) All Systems: reviewed and negative except above Subjective sleepy calm Objective Last 24 Hour Vital Signs Date Time Temp Pulse Resp B/P (MAP) Pulse Ox O2 Delivery O2 Flow Rate FiO2 06/12/19 09:00 Room Air 06/12/19 08:00 98.3 68 19 103/72 (82) 95 06/12/19 07:05 116 18 98 Room Air 21 06/12/19 06:36 99.0 06/12/19 00:00 99.0 105 18 117/77 (90) 99 06/11/19 21:00 Room Air 06/11/19 20:00 97.8 84 18 100/67 (78) 95 06/11/19 19:13 91 18 98 Room Air 21 06/11/19 12:27 97.8 06/11/19 12:00 98.0 105 20 123/86 (98) 97 06/11/19 10:11 97.8 Intake and Output 06/11/19 06/12/19 19:00 07:00 Intake Total 570 ml Output Total 2200 ml 2000 ml Balance -1630 ml -2000 ml Intake Oral 570 ml Output Urine Total 2200 ml 2000 ml # Bowel Movements 2 Laboratory Tests 06/11/19 12:04: Urine Random Sodium 30, Urine Potassium Timed 18 06/11/19 14:30: Urine Color Pale yellow, Urine Appearance Slightly cloudy, Urine pH 7, Urine Specific [place] 1.005, Urine Protein 2+H, Urine Glucose (UA) Negative, Urine Ketones Negative, Urine Blood 5+H, Urine Nitrite PositiveH, Urine Bilirubin Negative, Urine Urobilinogen Normal, Urine Leukocyte Esterase 3+H, Urine RBC 40- 60H, Urine WBC 60-80H, Urine Squamous Epithelial Cells Occasional, Urine Bacteria ModerateH, Urine Eosinophils Few seen 06/12/19 05:00: White Blood Count 8.8, Red Blood Count 4.14L, Hemoglobin 12.7L, Hematocrit 38.9L , Mean Corpuscular Volume 94, Mean Corpuscular Hemoglobin 30.7, Mean Corpuscular Hemoglobin Concent 32.7, Red Cell Distribution Width 14.4, Platelet Count 222, Mean Platelet Volume 4.6L, Neutrophils (%) (Auto) 79.2H, Lymphocytes (%) (Auto) 9.9L, Monocytes (%) (Auto) 7.4, Eosinophils (%) (Auto) 3.0, Basophils (%) (Auto) 0.6, Differential Total Cells Counted 100, Neutrophils % ( Manual) 79H, Lymphocytes % (Manual) 10L, Monocytes % (Manual) 9, Eosinophils % ( Manual) 2, Basophils % (Manual) 0, Band Neutrophils 0, Platelet Estimate Adequate, Platelet Morphology Normal, Red Blood Cell Morphology Normal, Erythrocyte Sedimentation Rate 45H, Reticulocyte Count 2.2H, Prothrombin Time 9.7, Prothromb Time International Ratio 0.9, Activated Partial Thromboplast Time 26, Sodium Level 144, Potassium Level 4.3, Chloride Level 108H, Carbon Dioxide Level 27, Anion Gap 9, Blood Urea Nitrogen 17, Creatinine 1.6H, Estimat Glomerular Filtration Rate 44.2, Glucose Level 83, Calcium Level 9.8, Phosphorus Level 4.0, Magnesium Level 2.3, Iron Level 36L, Total Iron Binding Capacity 284, Percent Iron Saturation 13L, Unsaturated Iron Binding 248, Total Bilirubin 0.5, Aspartate Amino Transf (AST/SGOT) 16, Alanine Aminotransferase ( ALT/SGPT) 21, Alkaline Phosphatase 82, Lactate Dehydrogenase 263H, C-Reactive Protein, Quantitative 5.8H, Total Protein 7.2, Albumin 3.3L, Globulin 3.9, Albumin/Globulin Ratio 0.8L, Triglycerides Level 144, Cholesterol Level 217H, LDL Cholesterol 117H, HDL Cholesterol 80H, Cholesterol/HDL Ratio 2.7L, Carcinoembryonic Antigen [Pending], Vitamin B12 Level 473, Folate 91.9H, Thyroid Stimulating Hormone (TSH) 0.409 06/12/19 09:18: Stool Occult Blood [Pending] Height (Feet): 5 Height (Inches): 9.00 Weight (Pounds): 140 General Appearance: lethargic EENT: normal ENT inspection Neck: normal alignment Cardiovascular: normal peripheral pulses, normal rate, regular rhythm Respiratory/Chest: chest wall non-tender, lungs clear, normal breath sounds Abdomen: normal bowel sounds, non tender, soft Extremities: normal inspection Edema: no edema noted Arm (L), no edema noted Arm (R), no edema noted Leg (L), no edema noted Leg (R), no edema noted Pedal (L), no edema noted Pedal (R), no edema noted Generalized Neurologic: motor weakness Skin: normal pigmentation, warm/dry Mansoor Villafuerte DO Jun 12, 2019 09:43
--- NOTE | 2019-06-12 11:22 | Pulmonology Progress Note ---
Assessment/Plan Problems: (1) Acute encephalopathy (2) Agitation (3) COPD (chronic obstructive pulmonary disease) (4) Hypothyroidism (5) Anemia (6) Psychosis Assessment/Plan in better mood f/u psych recommendations anemia w/u in progress respiratory treatment titrate fio2 to sat of 92% Subjective ROS Limited/Unobtainable: No Constitutional: Reports: no symptoms HEENT: Repors: no symptoms Allergies: Coded Allergies: CHLORPROMAZINE (Unverified Allergy, Unknown, 05/24/18) CLOZAPINE (Unverified Allergy, Unknown, 05/24/18) DIVALPROEX SODIUM (Unverified Allergy, Unknown, 05/24/18) HALOPERIDOL (Unverified Allergy, Unknown, 05/24/18) PENICILLINS (Verified Allergy, Unknown, 06/11/19) SERTRALINE (Unverified Allergy, Unknown, 05/24/18) Uncoded Allergies: CLOZASIL (Allergy, Unknown, 07/23/18) Objective Last 24 Hour Vital Signs Date Time Temp Pulse Resp B/P (MAP) Pulse Ox O2 Delivery O2 Flow Rate FiO2 06/12/19 09:00 Room Air 06/12/19 08:00 98.3 68 19 103/72 (82) 95 06/12/19 07:05 116 18 98 Room Air 21 06/12/19 06:36 99.0 06/12/19 00:00 99.0 105 18 117/77 (90) 99 06/11/19 21:00 Room Air 06/11/19 20:00 97.8 84 18 100/67 (78) 95 06/11/19 19:13 91 18 98 Room Air 21 06/11/19 12:27 97.8 06/11/19 12:00 98.0 105 20 123/86 (98) 97 Intake and Output 06/11/19 06/12/19 19:00 07:00 Intake Total 570 ml Output Total 2200 ml 2000 ml Balance -1630 ml -2000 ml Intake Oral 570 ml Output Urine Total 2200 ml 2000 ml # Bowel Movements 2 General Appearance: WD/WN HEENT: normocephalic, anicteric Respiratory/Chest: chest wall non-tender, lungs clear Cardiovascular: normal peripheral pulses, normal rate Abdomen: normal bowel sounds, soft, non tender Genitourinary: normal external genitalia Skin: no rash Microbiology Date/Time Source Procedure Growth Status 06/11/19 14:30 Urine,Clean Catch Urine Culture - Preliminary Resulted 06/11/19 04:55 Urine,Clean Catch Urine Culture - Preliminary Gram Negative Bacillus 1 Resulted Laboratory Tests 06/11/19 12:04: Urine Random Sodium 30, Urine Potassium Timed 18 06/11/19 14:30: Urine Color Pale yellow, Urine Appearance Slightly cloudy, Urine pH 7, Urine Specific [place] 1.005, Urine Protein 2+H, Urine Glucose (UA) Negative, Urine Ketones Negative, Urine Blood 5+H, Urine Nitrite PositiveH, Urine Bilirubin Negative, Urine Urobilinogen Normal, Urine Leukocyte Esterase 3+H, Urine RBC 40- 60H, Urine WBC 60-80H, Urine Squamous Epithelial Cells Occasional, Urine Bacteria ModerateH, Urine Eosinophils Few seen 06/12/19 05:00: White Blood Count 8.8, Red Blood Count 4.14L, Hemoglobin 12.7L, Hematocrit 38.9L , Mean Corpuscular Volume 94, Mean Corpuscular Hemoglobin 30.7, Mean Corpuscular Hemoglobin Concent 32.7, Red Cell Distribution Width 14.4, Platelet Count 222, Mean Platelet Volume 4.6L, Neutrophils (%) (Auto) 79.2H, Lymphocytes (%) (Auto) 9.9L, Monocytes (%) (Auto) 7.4, Eosinophils (%) (Auto) 3.0, Basophils (%) (Auto) 0.6, Differential Total Cells Counted 100, Neutrophils % ( Manual) 79H, Lymphocytes % (Manual) 10L, Monocytes % (Manual) 9, Eosinophils % ( Manual) 2, Basophils % (Manual) 0, Band Neutrophils 0, Platelet Estimate Adequate, Platelet Morphology Normal, Red Blood Cell Morphology Normal, Erythrocyte Sedimentation Rate 45H, Reticulocyte Count 2.2H, Prothrombin Time 9.7, Prothromb Time International Ratio 0.9, Activated Partial Thromboplast Time 26, Sodium Level 144, Potassium Level 4.3, Chloride Level 108H, Carbon Dioxide Level 27, Anion Gap 9, Blood Urea Nitrogen 17, Creatinine 1.6H, Estimat Glomerular Filtration Rate 44.2, Glucose Level 83, Calcium Level 9.8, Phosphorus Level 4.0, Magnesium Level 2.3, Iron Level 36L, Total Iron Binding Capacity 284, Percent Iron Saturation 13L, Unsaturated Iron Binding 248, Total Bilirubin 0.5, Aspartate Amino Transf (AST/SGOT) 16, Alanine Aminotransferase ( ALT/SGPT) 21, Alkaline Phosphatase 82, Lactate Dehydrogenase 263H, C-Reactive Protein, Quantitative 5.8H, Total Protein 7.2, Albumin 3.3L, Globulin 3.9, Albumin/Globulin Ratio 0.8L, Triglycerides Level 144, Cholesterol Level 217H, LDL Cholesterol 117H, HDL Cholesterol 80H, Cholesterol/HDL Ratio 2.7L, Carcinoembryonic Antigen [Pending], Vitamin B12 Level 473, Folate 91.9H, Thyroid Stimulating Hormone (TSH) 0.409 06/12/19 09:18: Stool Occult Blood [Pending] Current Medications Medications (Trade) Dose Ordered Sig/Cori Route PRN Reason Start Time Stop Time Status Last Admin Dose Admin Acetaminophen (Tylenol) 650 mg Q4H PRN ORAL fever 06/11/19 08:45 07/11/19 08:44 06/11/19 11:57 Acetaminophen/ Hydrocodone Bitart ([place] 5/325) 1 tab Q4H PRN ORAL Moderate Pain (Pain Scale 4-6) 06/11/19 14:00 06/18/19 13:59 06/12/19 06:06 Albuterol/ Ipratropium (Albuterol/ Ipratropium) 3 ml Q4H PRN HHN Shortness of Breath 06/11/19 14:00 06/16/19 13:59 Clonazepam (KlonoPIN) 2 mg Q6H PRN ORAL For Anxiety 06/11/19 11:15 06/18/19 11:14 06/12/19 06:29 Dextrose (Dextrose 50%) 25 ml Q30M PRN IV Hypoglycemia 06/11/19 08:45 07/11/19 08:44 Dextrose (Dextrose 50%) 50 ml Q30M PRN IV Hypoglycemia 06/11/19 08:45 07/11/19 08:44 Finasteride (Proscar) 5 mg DAILY ORAL 06/11/19 09:00 07/11/19 08:59 06/12/19 08:17 Levothyroxine Sodium (Synthroid) 100 mcg DAILY ORAL 06/11/19 09:00 07/11/19 08:59 06/12/19 08:17 Lorazepam (Ativan 2mg/ml 1ml) 0.5 mg Q4H PRN IV For Anxiety 06/11/19 11:15 06/18/19 08:44 Morphine Sulfate (Morphine Sulfate) 1 mg Q4H PRN IVP For Pain 06/11/19 08:45 06/18/19 08:44 06/11/19 09:41 Olanzapine (ZyPREXA) 10 mg BID ORAL 06/11/19 09:00 07/11/19 08:59 06/12/19 08:17 Ondansetron HCl (Zofran) 4 mg Q6H PRN IVP Nausea & Vomiting 06/11/19 08:45 07/11/19 08:44 Polyethylene Glycol (Miralax) 17 gm HSPRN PRN ORAL Constipation 06/11/19 08:45 07/11/19 08:44 Tamsulosin HCl (Flomax) 0.4 mg BID ORAL 06/11/19 09:00 07/11/19 08:59 06/12/19 08:17 Zolpidem Tartrate (Ambien) 5 mg HSPRN PRN ORAL Insomnia 06/11/19 08:45 06/18/19 08:44 Murali Allen MD Jun 12, 2019 11:22
--- NOTE | 2019-06-12 11:24 | Infectious Diseases Prog Note ---
Assessment/Plan Assessment/Plan Abx: Ceftriaxone x1 06/11 Assessment: Aggressive behavior Afebrile No leukocytosis Pyuria- Assymptomatic -u/a wbc tnct, nit +, leuk +3; ucx >100k GNR schizophrenia COPD/asthma GERD BPH seizure disorder CKD hypothyroidism anxiety disorder [place] resident Plan: -Continue to monitor off abx unless febrile, leukocytosis or urinary symptoms -f/u cx -Monitor CBC/CMP, temperatures Thank you for this consultation. Will continue to follow along with you. Discussed with RN. Subjective Allergies: Coded Allergies: CHLORPROMAZINE (Unverified Allergy, Unknown, 05/24/18) CLOZAPINE (Unverified Allergy, Unknown, 05/24/18) DIVALPROEX SODIUM (Unverified Allergy, Unknown, 05/24/18) HALOPERIDOL (Unverified Allergy, Unknown, 05/24/18) PENICILLINS (Verified Allergy, Unknown, 06/11/19) SERTRALINE (Unverified Allergy, Unknown, 05/24/18) Uncoded Allergies: CLOZASIL (Allergy, Unknown, 07/23/18) Subjective afebrile no leukocytosis Objective Vital Signs Last 24 Hour Vital Signs Date Time Temp Pulse Resp B/P (MAP) Pulse Ox O2 Delivery O2 Flow Rate FiO2 06/12/19 09:00 Room Air 06/12/19 08:00 98.3 68 19 103/72 (82) 95 06/12/19 07:05 116 18 98 Room Air 06/12/19 06:36 99.0 06/12/19 00:00 99.0 105 18 117/77 (90) 99 06/11/19 21:00 Room Air 06/11/19 20:00 97.8 84 18 100/67 (78) 95 06/11/19 19:13 91 18 98 Room Air 21 06/11/19 12:27 97.8 06/11/19 12:00 98.0 105 20 123/86 (98) 97 Height (Feet): 5 Height (Inches): 9.00 Weight (Pounds): 140 Objective General Appearance: WD/WN Lines, tubes and drains: peripheral HEENT: normocephalic, atraumatic Neck: non-tender, normal alignment Respiratory/Chest: chest wall non-tender, lungs clear Breasts: no masses Cardiovascular/Chest: normal peripheral pulses Abdomen: normal bowel sounds Extremities: normal range of motion Microbiology Date/Time Source Procedure Growth Status 06/11/19 14:30 Urine,Clean Catch Urine Culture - Preliminary Resulted 06/11/19 04:55 Urine,Clean Catch Urine Culture - Preliminary Gram Negative Bacillus 1 Resulted Laboratory Tests Test 06/11/19 12:04 06/11/19 14:30 06/12/19 05:00 06/12/19 09:18 Urine Random Sodium 30 mmol/L (20-110) Urine Potassium Timed 18 mmol/L (12-62) Urine Color Pale yellow Urine Appearance Slightly cloudy Urine pH 7 (4.5-8.0) Urine Specific [place] 1.005 (1.005-1.035) Urine Protein 2+ (NEGATIVE) H Urine Glucose (UA) Negative (NEGATIVE) Urine Ketones Negative (NEGATIVE) Urine Blood 5+ (NEGATIVE) H Urine Nitrite Positive (NEGATIVE) H Urine Bilirubin Negative (NEGATIVE) Urine Urobilinogen Normal MG/DL (0.0-1.0) Urine Leukocyte Esterase 3+ (NEGATIVE) H Urine RBC 40-60 /HPF (0 - 0) H Urine WBC 60-80 /HPF (0 - 0) H Urine Squamous Epithelial Cells Occasional /LPF Urine Bacteria Moderate /HPF (NONE) H Urine Eosinophils Few seen (NONE SEEN) White Blood Count 8.8 K/UL (4.8-10.8) Red Blood Count 4.14 M/UL (4.70-6.10) L Hemoglobin 12.7 G/DL (14.2-18.0) L Hematocrit 38.9 % (42.0-52.0) L Mean Corpuscular Volume 94 FL (80-99) Mean Corpuscular Hemoglobin 30.7 PG (27.0-31.0) Mean Corpuscular Hemoglobin Concent 32.7 G/DL (32.0-36.0) Red Cell Distribution Width 14.4 % (11.6-14.8) Platelet Count 222 K/UL (150-450) Mean Platelet Volume 4.6 FL (6.5-10.1) L Neutrophils (%) (Auto) 79.2 % (45.0-75.0) H Lymphocytes (%) (Auto) 9.9 % (20.0-45.0) L Monocytes (%) (Auto) 7.4 % (1.0-10.0) Eosinophils (%) (Auto) 3.0 % (0.0-3.0) Basophils (%) (Auto) 0.6 % (0.0-2.0) Differential Total Cells Counted 100 Neutrophils % (Manual) 79 % (45-75) H Lymphocytes % (Manual) 10 % (20-45) L Monocytes % (Manual) 9 % (1-10) Eosinophils % (Manual) 2 % (0-3) Basophils % (Manual) 0 % (0-2) Band Neutrophils 0 % (0-8) Platelet Estimate Adequate Platelet Morphology Normal Red Blood Cell Morphology Normal Erythrocyte Sedimentation Rate 45 MM/HR (0-20) H Reticulocyte Count 2.2 % (0.5-2.0) H Prothrombin Time 9.7 SEC (9.30-11.50) Prothromb Time International Ratio 0.9 (0.9-1.1) Activated Partial Thromboplast Time 26 SEC (23-33) Sodium Level 144 MMOL/L (136-145) Potassium Level 4.3 MMOL/L (3.5-5.1) Chloride Level 108 MMOL/L (98-107) H Carbon Dioxide Level 27 MMOL/L (21-32) Anion Gap 9 mmol/L (5-15) Blood Urea Nitrogen 17 mg/dL (7-18) Creatinine 1.6 MG/DL (0.55-1.30) H Estimat Glomerular Filtration Rate 44.2 mL/min (>60) Glucose Level 83 MG/DL (74-106) Calcium Level 9.8 MG/DL (8.5-10.1) Phosphorus Level 4.0 MG/DL (2.5-4.9) Magnesium Level 2.3 MG/DL (1.8-2.4) Iron Level 36 ug/dL (50-175) L Total Iron Binding Capacity 284 ug/dL (250-450) Percent Iron Saturation 13 % (15-50) L Unsaturated Iron Binding 248 ug/dL (112-346) Total Bilirubin 0.5 MG/DL (0.2-1.0) Aspartate Amino Transf (AST/SGOT) 16 U/L (15-37) Alanine Aminotransferase (ALT/SGPT) 21 U/L (12-78) Alkaline Phosphatase 82 U/L (46-116) Lactate Dehydrogenase 263 U/L (81-234) H C-Reactive Protein, Quantitative 5.8 mg/dL (0.00-0.90) H Total Protein 7.2 G/DL (6.4-8.2) Albumin 3.3 G/DL (3.4-5.0) L Globulin 3.9 g/dL Albumin/Globulin Ratio 0.8 (1.0-2.7) L Triglycerides Level 144 MG/DL (30-150) Cholesterol Level 217 MG/DL (< 200) H LDL Cholesterol 117 mg/dL (<100) H HDL Cholesterol 80 MG/DL (40-60) H Cholesterol/HDL Ratio 2.7 (3.3-4.4) L Carcinoembryonic Antigen Pending Vitamin B12 Level 473 PG/ML (193-986) Folate 91.9 NG/ML (8.6-58.9) H Thyroid Stimulating Hormone (TSH) 0.409 uiU/mL (0.358-3.740) Stool Occult Blood Pending Current Medications Medications (Trade) Dose Ordered Sig/Cori Route PRN Reason Start Time Stop Time Status Last Admin Dose Admin Acetaminophen (Tylenol) 650 mg Q4H PRN ORAL fever 06/11/19 08:45 07/11/19 08:44 06/11/19 11:57 Acetaminophen/ Hydrocodone Bitart ([place] 5/325) 1 tab Q4H PRN ORAL Moderate Pain (Pain Scale 4-6) 06/11/19 14:00 06/18/19 13:59 06/12/19 06:06 Albuterol/ Ipratropium (Albuterol/ Ipratropium) 3 ml Q4H PRN HHN Shortness of Breath 06/11/19 14:00 06/16/19 13:59 Clonazepam (KlonoPIN) 2 mg Q6H PRN ORAL For Anxiety 06/11/19 11:15 06/18/19 11:14 06/12/19 06:29 Dextrose (Dextrose 50%) 25 ml Q30M PRN IV Hypoglycemia 06/11/19 08:45 07/11/19 08:44 Dextrose (Dextrose 50%) 50 ml Q30M PRN IV Hypoglycemia 06/11/19 08:45 07/11/19 08:44 Finasteride (Proscar) 5 mg DAILY ORAL 06/11/19 09:00 07/11/19 08:59 06/12/19 08:17 Levothyroxine Sodium (Synthroid) 100 mcg DAILY ORAL 06/11/19 09:00 07/11/19 08:59 06/12/19 08:17 Lorazepam (Ativan 2mg/ml 1ml) 0.5 mg Q4H PRN IV For Anxiety 06/11/19 11:15 06/18/19 08:44 Morphine Sulfate (Morphine Sulfate) 1 mg Q4H PRN IVP For Pain 06/11/19 08:45 06/18/19 08:44 06/11/19 09:41 Olanzapine (ZyPREXA) 10 mg BID ORAL 06/11/19 09:00 07/11/19 08:59 06/12/19 08:17 Ondansetron HCl (Zofran) 4 mg Q6H PRN IVP Nausea & Vomiting 06/11/19 08:45 07/11/19 08:44 Polyethylene Glycol (Miralax) 17 gm HSPRN PRN ORAL Constipation 06/11/19 08:45 07/11/19 08:44 Tamsulosin HCl (Flomax) 0.4 mg BID ORAL 06/11/19 09:00 07/11/19 08:59 06/12/19 08:17 Zolpidem Tartrate (Ambien) 5 mg HSPRN PRN ORAL Insomnia 06/11/19 08:45 06/18/19 08:44 Cha Underwood M.D. Jun 12, 2019 11:24
[2019-06-12 12:00] VITALS: BP 103/81
[2019-06-12] MEDS ORDERED: Mylanta II UD 30ml ORAL SCH (14:55)
--- NOTE | 2019-06-12 14:55 | NUR ---
[employer] ADMINISTRATOR SI: AGITATION T. 98.4 HR 82 RR 20 B/P 103/87 CR 1.6 ESR 45 IS: SYNTHROID PO ZYPREXA PO ALB HHN MED/SURG STATUS
--- NOTE | 2019-06-12 15:09 | NUR ---
NURSE NOTES: Patient request to get breathing treatment. RT notified.
[2019-06-12] MEDS: Albuterol/Ipratropium 3ml neb HHN PRN ×2 (15:13→22:41)
[2019-06-12 16:00] VITALS: BP_SYST 100; BP_SYST 114; BP_DIAS 65; BP_DIAS 82
--- NOTE | 2019-06-12 19:49 | NUR ---
HAND-OFF: Report given to KAROLINE Sands.
--- NOTE | 2019-06-12 19:50 | NUR ---
NURSE NOTES: Received patient in no apparent distress. A&OX4. IV site patent and intact. Bed in lowest position. Call light within reach. Will continue to monitor.
[2019-06-12] MEDS ORDERED: SYNTHROID75 MCG ORAL (19:58)
[2019-06-12] MEDS ORDERED: PANTOPRAZOLE SO40 MG ORAL (19:59)
[2019-06-12 20:00] VITALS: BP 127/68
[2019-06-12] MEDS ORDERED: PREDNISONE10 MG ORAL (20:00)
[2019-06-12] MEDS ORDERED: DUONEB 0.5-3(2.53 ML HHN (20:02)
[2019-06-12] MEDS ORDERED: ADVANCED ANTAC355 ML ORAL (20:05)
[2019-06-12] MEDS ORDERED: HYDROCODON-ACE1 EA13 ORAL (20:05)
[2019-06-12] MEDS ORDERED: MIRTAZAPINE15 MG ORAL (20:09)
[2019-06-12] MEDS ORDERED: SEROQUEL25 MG ORAL (20:09)
[2019-06-13] VITALS (7 sets, daily range): BP systolic 94–122; BP diastolic 65–76
[2019-06-13] MEDS: HYDROcodone/Acetamin 5/325 tab ORAL PRN ×5 (02:30→22:16)
--- NOTE | 2019-06-13 03:00 | Consultation ---
DATE OF CONSULTATION: 06/12/2019 HISTORY OF PRESENT ILLNESS: The patient is a 63-year-old male patient. He was admitted to the hospital due to altered mental status. He has lot of psychomotor agitation and irritability. The patient was admitted to the hospital and transferred [facility] the [facility] into [facility]. He is very confused, disorganized extremely, mood labile, and he has got no logical plan for his own self-care. Apparently, he tried to cut himself at the facility. He had a laceration, so he had to get treated for that. So, he was admitted to the hospital. He does have some confusion and disorganized thought process . He came in from [facility], but he also has lot of other medical problems such as urinary tract infection, low back pain, altered mental status. His chief complaint on interview was " do not want to go back to I don't like the [facility] I was in." He told me that he has had thoughts to hurt himself because he did not want to be in the facility he was in and he was trying to manipulate the facility to transfer him, he actually admitted this. He is endorsing of low energy. PAST MEDICAL HISTORY: Renal failure, COPD, asthma, hypothyroidism. ALLERGIES: Thorazine, Clozaril, Depakote, Haldol, and Zoloft. MEDICATIONS: Psychotropic medications on admission, the patient is currently on a psychotropic medication regimen consisting of Zyprexa 10 mg twice a day and Ativan 0.5 mg IV q.4 h. p.r.n. anxiety and agitation, Klonopin 2 mg q.6 h. p.r.n. anxiety and agitation. FAMILY PSYCHIATRIC HISTORY: Denies. PAIN ASSESSMENT: 0/10 pain. DEVELOPMENTAL PROBLEMS: Denies. SOCIAL HISTORY: The patient lives in [facility]. Financially supported by [employer] and Medicare. PSYCHIATRIC HISTORY: History of paranoid schizophrenia. He has had multiple psychiatric admissions. He just got out of psych unit. POSITIVES AND STRENGTHS: He is motivated to get better and he has a place to live. WEAKNESSES: He is impulsive and minimal support system. MENTAL STATUS EXAMINATION: This is a 63-year-old male. Appearance is disheveled. Attitude, irritable and agitated. Affect is labile. Intellect poor because he does not know current events. He does not know the last four Presidents. Mood, depressed and anxious. Motor activity, psychomotor agitation. Attention span is poor because he cannot do serial sevens or spell world backwards. Orientation x [address], not to time or situation. Speech is pressured and nonsensical. Thought process, disorganized and illogical. Thought content, auditory hallucinations and paranoid delusions. Perception is poor because he has auditory hallucinations and paranoid delusions. Abstract reasoning is poor because he does not know proverbs, only has concrete thinking. Insight is poor because he does not recognize severity of his mood disorder. Judgment is poor because he cannot completely make medical decisions for himself and does not accept consequences of his actions. Intermittent suicidal ideations with no plan. Denies homicidal ideation. Short-term memory 3/3 word recall after 5 minutes delay with good short-term memory. Long-term memory is poor because he cannot recall long-term events in his life such as high school that he went to. DIAGNOSES: 1. Paranoid schizophrenia with acute exacerbation. 2. Medical, chronic obstructive pulmonary disease, neuropathy, lower extremity weakness. 3. Psychosocial stressors, financial. 4. Functional impairment is severe. PLAN: Treat this patient with Zyprexa 5 mg twice a day, and Klonopin q.6 h. p.r.n. anxiety, agitation. A 20 minutes of cognitive behavioral therapy to help him identify automatic negative thoughts and help him to convert negative thoughts to more positive thoughts to reduce depression, anxiety, and mood lability. Shantanu Way M.D. DR: Gentry JOB#: [id number] CC:
[2019-06-13 06:01] LABS: BASOPHILS % (AUTO) 1.1 % (0.0-2.0); EOSINOPHILS % (AUTO) 3.9 % (0.0-3.0); HEMATOCRIT 34.5 % (42.0-52.0); HEMOGLOBIN 11.2 G/DL (14.2-18.0); LYMPHOCYTES % (AUTO) 21.2 % (20.0-45.0); MEAN CORPUSCULAR VOLUME 93 FL (80-99); MONOCYTES % (AUTO) 8.3 % (1.0-10.0); NEUTROPHILS % (AUTO) 65.6 % (45.0-75.0); PLATELET COUNT 172 K/UL (150-450); RED CELL DISTRIBUTION WIDTH 14.4 % (11.6-14.8); WHITE BLOOD COUNT 6.7 K/UL (4.8-10.8)
[2019-06-13 06:17] LABS: ANION GAP 9 mmol/L (5-15); BLOOD UREA NITROGEN 18 mg/dL (7-18); CALCIUM 8.9 MG/DL (8.5-10.1); CARBON DIOXIDE 26 MMOL/L (21-32); CHLORIDE 105 MMOL/L (98-107); CREATININE 1.6 MG/DL (0.55-1.30); POTASSIUM 3.8 MMOL/L (3.5-5.1); SODIUM 140 MMOL/L (136-145)
--- NOTE | 2019-06-13 07:34 | NUR ---
HAND-OFF: Report given to Celeste RAMEY.
--- NOTE | 2019-06-13 08:00 | NUR ---
NURSE NOTES: Received patient A/A/OX3, able to verbalize need. in no apparent distress. IV site patent and intact. Bed in lowest position. Call light within reach. Will continue to monitor.
[2019-06-13] MEDS: OLANZapine 10mg tab ORAL SCH ×2 (09:01→17:29)
[2019-06-13] MEDS: Tamsulosin 0.4mg cap ORAL SCH ×2 (09:01→17:29)
--- NOTE | 2019-06-13 10:08 | Hematology/Onc Progress Note ---
Assessment/Plan Assessment/Plan Assessment/Recs: # Anemia of iron deficiency (based on prior workup, ferritin was <20), hgb has been downtrending --> r/o iron deficiency and other causes, w/u has been working --> at this time, ferritin is still pending, if less than 50, consider to start on iv iron --> r/u underling hemolysis, bili is wnl --> peripheral smear shows no schistocytes --> esr is high at this time # Pyuria asymptomatic --> seen by id --> consider abx as per id, currently off # Aggressive behavior --> per psych management # COPD/asthma --> breathing treatment on prn basis # GERD --> continue on ppi prn # BPH # Seizure disorder # Hypothyroidism # Anxiety disorder # [facility] resident Greatly appreciate consultation, continue to closely follow. Subjective Constitutional: Denies: no symptoms, chills, fever, malaise, weakness, other HEENT: Denies: no symptoms, eye pain, blurred vision, tearing, double vision, ear pain, ear discharge, nose pain, nose congestion, throat pain, throat swelling, mouth pain, mouth swelling, other Respiratory: Denies: no symptoms, cough, shortness of breath, SOB with excertion, SOB at rest, sputum, wheezing, other Gastrointestinal/Abdominal: Denies: no symptoms, abdomen distended, abdominal pain, black stools, tarry stools, blood in stool, constipated, diarrhea, difficulty swallowing, nausea, poor appetite, poor fluid intake, rectal bleeding , vomiting, other 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: Denies: no symptoms, anxiety, depressed, emotional problems, headache, numbness, paresthesia, pre-existing deficit, seizure, tingling, tremors, weakness, other Endocrine: Denies: no symptoms, excessive sweating, flushing, intolerance to cold, intolerance to heat, increased hunger, increased thirst, increased urine, unexplained weight gain, unexplained weight loss, other Allergies: Coded Allergies: CHLORPROMAZINE (Unverified Allergy, Unknown, 05/24/18) CLOZAPINE (Unverified Allergy, Unknown, 05/24/18) [place] (Unverified Allergy, Unknown, 06/12/19) FROM [facility] MEDICAL RECORDS DIVALPROEX SODIUM (Unverified Allergy, Unknown, 05/24/18) FISH CONTAINING PRODUCTS (Unverified Allergy, Unknown, 06/12/19) FROM [facility] MEDICAL RECORDS HALOPERIDOL (Unverified Allergy, Unknown, 05/24/18) ONION (Unverified Allergy, Unknown, 06/12/19) FROM [facility] MEDICAL RECORDS PENICILLINS (Verified Allergy, Unknown, 06/11/19) SERTRALINE (Unverified Allergy, Unknown, 05/24/18) Uncoded Allergies: CLOZASIL (Allergy, Unknown, 07/23/18) ZUCCHINI (Allergy, Unknown, 06/12/19) FROM [facility] MEDICAL RECORDS Subjective 06/13: no events overnight, on abx, says doesn't want to go back to [facility] , ferritin ordered Objective Objective Current Medications Medications (Trade) Dose Ordered Sig/Cori Route PRN Reason Start Time Stop Time Status Last Admin Dose Admin Acetaminophen (Tylenol) 650 mg Q4H PRN ORAL fever 06/11/19 08:45 07/11/19 08:44 06/11/19 11:57 Acetaminophen/ Hydrocodone Bitart ([place] 5/325) 1 tab Q4H PRN ORAL Moderate Pain (Pain Scale 4-6) 06/11/19 14:00 06/18/19 13:59 06/13/19 06:31 Albuterol/ Ipratropium (Albuterol/ Ipratropium) 3 ml Q4H PRN HHN Shortness of Breath 06/11/19 14:00 06/16/19 13:59 06/12/19 22:41 Clonazepam (KlonoPIN) 2 mg Q6H PRN ORAL For Anxiety 06/11/19 11:15 06/18/19 11:14 06/13/19 07:07 Dextrose (Dextrose 50%) 25 ml Q30M PRN IV Hypoglycemia 06/11/19 08:45 07/11/19 08:44 Dextrose (Dextrose 50%) 50 ml Q30M PRN IV Hypoglycemia 06/11/19 08:45 07/11/19 08:44 Finasteride (Proscar) 5 mg DAILY ORAL 06/11/19 09:00 07/11/19 08:59 06/13/19 09:01 Levothyroxine Sodium (Synthroid) 100 mcg DAILY ORAL 06/11/19 09:00 07/11/19 08:59 06/13/19 09:01 Lorazepam (Ativan 2mg/ml 1ml) 0.5 mg Q4H PRN IV For Anxiety 06/11/19 11:15 06/18/19 08:44 Morphine Sulfate (Morphine Sulfate) 1 mg Q4H PRN IVP For Pain 06/11/19 08:45 06/18/19 08:44 06/11/19 09:41 Olanzapine (ZyPREXA) 10 mg BID ORAL 06/11/19 09:00 07/11/19 08:59 06/13/19 09:01 Ondansetron HCl (Zofran) 4 mg Q6H PRN IVP Nausea & Vomiting 06/11/19 08:45 07/11/19 08:44 Polyethylene Glycol (Miralax) 17 gm HSPRN PRN ORAL Constipation 06/11/19 08:45 07/11/19 08:44 Tamsulosin HCl (Flomax) 0.4 mg BID ORAL 06/11/19 09:00 07/11/19 08:59 06/13/19 09:01 Zolpidem Tartrate (Ambien) 5 mg HSPRN PRN ORAL Insomnia 06/11/19 08:45 06/18/19 08:44 Last 24 Hour Vital Signs Date Time Temp Pulse Resp B/P (MAP) Pulse Ox O2 Delivery O2 Flow Rate FiO2 06/13/19 08:00 97.7 88 18 99/66 (77) 99 06/13/19 07:25 93 12 96 Room Air 21 06/13/19 04:00 98.2 89 18 121/69 (86) 98 06/13/19 00:00 98.6 91 18 122/66 (84) 96 06/12/19 22:44 100 20 96 Room Air 21 06/12/19 21:36 96 18 98 Room Air 21 06/12/19 21:00 Room Air 06/12/19 20:00 98.9 95 18 127/68 (87) 95 06/12/19 17:54 97.1 06/12/19 16:00 97.1 101 19 114/82 (93) 97 06/12/19 15:22 108 20 100 Room Air 21 06/12/19 15:13 112 22 98 Room Air 21 06/12/19 12:00 98.4 82 20 103/81 (88) 97 06/12/19 09:00 Room Air 06/12/19 08:00 98.3 68 19 103/72 (82) 95 06/12/19 07:05 116 18 98 Room Air 21 06/12/19 00:00 99.0 105 18 117/77 (90) 99 06/11/19 21:00 Room Air 06/11/19 20:00 97.8 84 18 100/67 (78) 95 06/11/19 19:13 91 18 98 Room Air 21 06/11/19 12:27 97.8 06/11/19 12:00 98.0 105 20 123/86 (98) 97 06/11/19 10:11 97.8 Intake and Output 06/12/19 06/13/19 19:00 07:00 Intake Total 712 ml Output Total 1800 ml 700 ml Balance -1088 ml -700 ml Intake Oral 712 ml Output Urine Total 1800 ml 700 ml # Voids 2 Labs Test 06/11/19 04:55 06/11/19 12:04 06/11/19 14:30 06/12/19 05:00 White Blood Count 9.9 K/UL (4.8-10.8) 8.8 K/UL (4.8-10.8) Red Blood Count 3.98 M/UL (4.70-6.10) 4.14 M/UL (4.70-6.10) Hemoglobin 12.1 G/DL (14.2-18.0) 12.7 G/DL (14.2-18.0) Hematocrit 37.0 % (42.0-52.0) 38.9 % (42.0-52.0) Mean Corpuscular Volume 93 FL (80-99) 94 FL (80-99) Mean Corpuscular Hemoglobin 30.4 PG (27.0-31.0) 30.7 PG (27.0-31.0) Mean Corpuscular Hemoglobin Concent 32.7 G/DL (32.0-36.0) 32.7 G/DL (32.0-36.0) Red Cell Distribution Width 14.2 % (11.6-14.8) 14.4 % (11.6-14.8) Platelet Count 215 K/UL (150-450) 222 K/UL (150-450) Mean Platelet Volume 4.8 FL (6.5-10.1) 4.6 FL (6.5-10.1) Neutrophils (%) (Auto) 72.5 % (45.0-75.0) 79.2 % (45.0-75.0) Lymphocytes (%) (Auto) 17.1 % (20.0-45.0) 9.9 % (20.0-45.0) Monocytes (%) (Auto) 6.8 % (1.0-10.0) 7.4 % (1.0-10.0) Eosinophils (%) (Auto) 2.6 % (0.0-3.0) 3.0 % (0.0-3.0) Basophils (%) (Auto) 0.9 % (0.0-2.0) 0.6 % (0.0-2.0) Urine Color Pale yellow Pale yellow Urine Appearance Slightly cloudy Slightly cloudy Urine pH 7 (4.5-8.0) 7 (4.5-8.0) Urine Specific [place] 1.005 (1.005-1.035) 1.005 (1.005-1.035) Urine Protein 2+ (NEGATIVE) 2+ (NEGATIVE) Urine Glucose (UA) Negative (NEGATIVE) Negative (NEGATIVE) Urine Ketones Negative (NEGATIVE) Negative (NEGATIVE) Urine Blood 5+ (NEGATIVE) 5+ (NEGATIVE) Urine Nitrite Positive (NEGATIVE) Positive (NEGATIVE) Urine Bilirubin Negative (NEGATIVE) Negative (NEGATIVE) Urine Urobilinogen Normal MG/DL (0.0-1.0) Normal MG/DL (0.0-1.0) Urine Leukocyte Esterase 3+ (NEGATIVE) 3+ (NEGATIVE) Urine RBC 2-4 /HPF (0 - 0) 40-60 /HPF (0 - 0) Urine WBC Tntc /HPF (0 - 0) 60-80 /HPF (0 - 0) Urine Squamous Epithelial Cells None /LPF (NONE/OCC) Occasional /LPF Urine Bacteria Many /HPF (NONE) Moderate /HPF (NONE) Sodium Level 138 MMOL/L (136-145) 144 MMOL/L (136-145) Potassium Level 3.9 MMOL/L (3.5-5.1) 4.3 MMOL/L (3.5-5.1) Chloride Level 101 MMOL/L (98-107) 108 MMOL/L (98-107) Carbon Dioxide Level 31 MMOL/L (21-32) 27 MMOL/L (21-32) Anion Gap 6 mmol/L (5-15) 9 mmol/L (5-15) Blood Urea Nitrogen 16 mg/dL (7-18) 17 mg/dL (7-18) Creatinine 1.6 MG/DL (0.55-1.30) 1.6 MG/DL (0.55-1.30) Estimat Glomerular Filtration Rate 44.2 mL/min (>60) 44.2 mL/min (>60) Glucose Level 90 MG/DL (74-106) 83 MG/DL (74-106) Uric Acid 7.7 MG/DL (2.6-7.2) Calcium Level 9.1 MG/DL (8.5-10.1) 9.8 MG/DL (8.5-10.1) Total Creatine Kinase 32 U/L (26-308) Urine Random Sodium 30 mmol/L (20-110) Urine Potassium Timed 18 mmol/L (12-62) Urine Eosinophils Few seen (NONE SEEN) Differential Total Cells Counted 100 Neutrophils % (Manual) 79 % (45-75) Lymphocytes % (Manual) 10 % (20-45) Monocytes % (Manual) 9 % (1-10) Eosinophils % (Manual) 2 % (0-3) Basophils % (Manual) 0 % (0-2) Band Neutrophils 0 % (0-8) Platelet Estimate Adequate Platelet Morphology Normal Red Blood Cell Morphology Normal Erythrocyte Sedimentation Rate 45 MM/HR (0-20) Reticulocyte Count 2.2 % (0.5-2.0) Prothrombin Time 9.7 SEC (9.30-11.50) Prothromb Time International Ratio 0.9 (0.9-1.1) Activated Partial Thromboplast Time 26 SEC (23-33) Phosphorus Level 4.0 MG/DL (2.5-4.9) Magnesium Level 2.3 MG/DL (1.8-2.4) Iron Level 36 ug/dL (50-175) Total Iron Binding Capacity 284 ug/dL (250-450) Percent Iron Saturation 13 % (15-50) Unsaturated Iron Binding 248 ug/dL (112-346) Total Bilirubin 0.5 MG/DL (0.2-1.0) Aspartate Amino Transf (AST/SGOT) 16 U/L (15-37) Alanine Aminotransferase (ALT/SGPT) 21 U/L (12-78) Alkaline Phosphatase 82 U/L (46-116) Lactate Dehydrogenase 263 U/L (81-234) C-Reactive Protein, Quantitative 5.8 mg/dL (0.00-0.90) Total Protein 7.2 G/DL (6.4-8.2) Albumin 3.3 G/DL (3.4-5.0) Globulin 3.9 g/dL Albumin/Globulin Ratio 0.8 (1.0-2.7) Triglycerides Level 144 MG/DL (30-150) Cholesterol Level 217 MG/DL (< 200) LDL Cholesterol 117 mg/dL (<100) HDL Cholesterol 80 MG/DL (40-60) Cholesterol/HDL Ratio 2.7 (3.3-4.4) Carcinoembryonic Antigen 2.2 ng/mL (0.0-4.7) Vitamin B12 Level 473 PG/ML (193-986) Folate 91.9 NG/ML (8.6-58.9) Thyroid Stimulating Hormone (TSH) 0.409 uiU/mL (0.358-3.740) Test 06/12/19 09:18 06/13/19 05:41 White Blood Count 6.7 K/UL (4.8-10.8) Red Blood Count 3.70 M/UL (4.70-6.10) Hemoglobin 11.2 G/DL (14.2-18.0) Hematocrit 34.5 % (42.0-52.0) Mean Corpuscular Volume 93 FL (80-99) Mean Corpuscular Hemoglobin 30.2 PG (27.0-31.0) Mean Corpuscular Hemoglobin Concent 32.4 G/DL (32.0-36.0) Red Cell Distribution Width 14.4 % (11.6-14.8) Platelet Count 172 K/UL (150-450) Mean Platelet Volume 5.3 FL (6.5-10.1) Neutrophils (%) (Auto) 65.6 % (45.0-75.0) Lymphocytes (%) (Auto) 21.2 % (20.0-45.0) Monocytes (%) (Auto) 8.3 % (1.0-10.0) Eosinophils (%) (Auto) 3.9 % (0.0-3.0) Basophils (%) (Auto) 1.1 % (0.0-2.0) Sodium Level 140 MMOL/L (136-145) Potassium Level 3.8 MMOL/L (3.5-5.1) Chloride Level 105 MMOL/L (98-107) Carbon Dioxide Level 26 MMOL/L (21-32) Anion Gap 9 mmol/L (5-15) Blood Urea Nitrogen 18 mg/dL (7-18) Creatinine 1.6 MG/DL (0.55-1.30) Estimat Glomerular Filtration Rate 44.2 mL/min (>60) Glucose Level 104 MG/DL (74-106) Calcium Level 8.9 MG/DL (8.5-10.1) Height (Feet): 5 Height (Inches): 9.00 Weight (Pounds): 140 Objective Gen: NAD, A+O x3 Pulm: Ctab, no cwr CV: RRR, no mgr Abd: soft, nt, nd Ext: no cce Neuro: grossly intact, cn II-XII intact Ba Manriquez MD Jun 13, 2019 10:08
--- NOTE | 2019-06-13 13:00 | Infectious Diseases Prog Note ---
Assessment/Plan Assessment/Plan Abx: Ceftriaxone x1 06/11 Assessment: Aggressive behavior Afebrile No leukocytosis Pyuria- Assymptomatic -u/a wbc tnct, nit +, leuk +3; ucx >100k PsA (cruz S); colonizer schizophrenia COPD/asthma GERD BPH seizure disorder CKD hypothyroidism anxiety disorder [place] resident Plan: -Continue to monitor off abx unless febrile, leukocytosis or urinary symptoms -f/u cx -Monitor CBC/CMP, temperatures Thank you for this consultation. Will continue to follow along with you. Discussed with RN. Subjective Allergies: Coded Allergies: CHLORPROMAZINE (Unverified Allergy, Unknown, 05/24/18) CLOZAPINE (Unverified Allergy, Unknown, 05/24/18) [place] (Unverified Allergy, Unknown, 06/12/19) FROM [facility] MEDICAL RECORDS DIVALPROEX SODIUM (Unverified Allergy, Unknown, 05/24/18) FISH CONTAINING PRODUCTS (Unverified Allergy, Unknown, 06/12/19) FROM [facility] MEDICAL RECORDS HALOPERIDOL (Unverified Allergy, Unknown, 05/24/18) ONION (Unverified Allergy, Unknown, 06/12/19) FROM [facility] MEDICAL RECORDS PENICILLINS (Verified Allergy, Unknown, 06/11/19) SERTRALINE (Unverified Allergy, Unknown, 05/24/18) Uncoded Allergies: CLOZASIL (Allergy, Unknown, 07/23/18) ZUCCHINI (Allergy, Unknown, 06/12/19) FROM [facility] MEDICAL RECORDS Subjective afebrile no leukocytosis Objective Vital Signs Last 24 Hour Vital Signs Date Time Temp Pulse Resp B/P (MAP) Pulse Ox O2 Delivery O2 Flow Rate FiO2 06/13/19 12:00 98.1 106 20 106/74 (85) 97 06/13/19 11:07 98.1 06/13/19 08:30 Room Air 06/13/19 08:00 97.7 88 18 99/66 (77) 99 06/13/19 07:25 93 12 96 Room Air 21 06/13/19 04:00 98.2 89 18 121/69 (86) 98 06/13/19 00:00 98.6 91 18 122/66 (84) 96 06/12/19 22:44 100 20 96 Room Air 21 06/12/19 21:36 96 18 98 Room Air 21 06/12/19 21:00 Room Air 06/12/19 20:00 98.9 95 18 127/68 (87) 95 06/12/19 16:00 97.1 101 19 114/82 (93) 97 06/12/19 15:22 108 20 100 Room Air 21 06/12/19 15:13 112 22 98 Room Air 21 Height (Feet): 5 Height (Inches): 9.00 Weight (Pounds): 140 Objective General Appearance: WD/WN Lines, tubes and drains: peripheral HEENT: normocephalic, atraumatic Neck: non-tender, normal alignment Respiratory/Chest: chest wall non-tender, lungs clear Breasts: no masses Cardiovascular/Chest: normal peripheral pulses Abdomen: normal bowel sounds Extremities: normal range of motion Microbiology Date/Time Source Procedure Growth Status 06/11/19 14:30 Urine,Clean Catch Urine Culture - Preliminary Resulted 06/11/19 04:55 Urine,Clean Catch Urine Culture - Preliminary Pseudomonas Aeruginosa Resulted Laboratory Tests Test 06/13/19 05:35 06/13/19 05:41 Ferritin 133 NG/ML (8-388) White Blood Count 6.7 K/UL (4.8-10.8) Red Blood Count 3.70 M/UL (4.70-6.10) L Hemoglobin 11.2 G/DL (14.2-18.0) L Hematocrit 34.5 % (42.0-52.0) L Mean Corpuscular Volume 93 FL (80-99) Mean Corpuscular Hemoglobin 30.2 PG (27.0-31.0) Mean Corpuscular Hemoglobin Concent 32.4 G/DL (32.0-36.0) Red Cell Distribution Width 14.4 % (11.6-14.8) Platelet Count 172 K/UL (150-450) Mean Platelet Volume 5.3 FL (6.5-10.1) L Neutrophils (%) (Auto) 65.6 % (45.0-75.0) Lymphocytes (%) (Auto) 21.2 % (20.0-45.0) Monocytes (%) (Auto) 8.3 % (1.0-10.0) Eosinophils (%) (Auto) 3.9 % (0.0-3.0) H Basophils (%) (Auto) 1.1 % (0.0-2.0) Sodium Level 140 MMOL/L (136-145) Potassium Level 3.8 MMOL/L (3.5-5.1) Chloride Level 105 MMOL/L (98-107) Carbon Dioxide Level 26 MMOL/L (21-32) Anion Gap 9 mmol/L (5-15) Blood Urea Nitrogen 18 mg/dL (7-18) Creatinine 1.6 MG/DL (0.55-1.30) H Estimat Glomerular Filtration Rate 44.2 mL/min (>60) Glucose Level 104 MG/DL (74-106) Calcium Level 8.9 MG/DL (8.5-10.1) Current Medications Medications (Trade) Dose Ordered Sig/Cori Route PRN Reason Start Time Stop Time Status Last Admin Dose Admin Acetaminophen (Tylenol) 650 mg Q4H PRN ORAL fever 06/11/19 08:45 07/11/19 08:44 06/11/19 11:57 Acetaminophen/ Hydrocodone Bitart ([place] 5/325) 1 tab Q4H PRN ORAL Moderate Pain (Pain Scale 4-6) 06/11/19 14:00 06/18/19 13:59 06/13/19 10:37 Al Hydroxide/Mg Hydroxide (Mylanta) 30 ml Q6H PRN ORAL Abdominal cramps 06/13/19 12:45 07/13/19 12:44 Albuterol/ Ipratropium (Albuterol/ Ipratropium) 3 ml Q4H PRN HHN Shortness of Breath 06/11/19 14:00 06/16/19 13:59 06/12/19 22:41 Clonazepam (KlonoPIN) 2 mg Q6H PRN ORAL For Anxiety 06/11/19 11:15 06/18/19 11:14 06/13/19 07:07 Dextrose (Dextrose 50%) 25 ml Q30M PRN IV Hypoglycemia 06/11/19 08:45 07/11/19 08:44 Dextrose (Dextrose 50%) 50 ml Q30M PRN IV Hypoglycemia 06/11/19 08:45 07/11/19 08:44 Finasteride (Proscar) 5 mg DAILY ORAL 06/11/19 09:00 07/11/19 08:59 06/13/19 09:01 Levothyroxine Sodium (Synthroid) 100 mcg DAILY ORAL 06/11/19 09:00 07/11/19 08:59 06/13/19 09:01 Lorazepam (Ativan 2mg/ml 1ml) 0.5 mg Q4H PRN IV For Anxiety 06/11/19 11:15 06/18/19 08:44 Morphine Sulfate (Morphine Sulfate) 1 mg Q4H PRN IVP For Pain 06/11/19 08:45 06/18/19 08:44 06/11/19 09:41 Olanzapine (ZyPREXA) 10 mg BID ORAL 06/11/19 09:00 07/11/19 08:59 06/13/19 09:01 Ondansetron HCl (Zofran) 4 mg Q6H PRN IVP Nausea & Vomiting 06/11/19 08:45 07/11/19 08:44 Polyethylene Glycol (Miralax) 17 gm HSPRN PRN ORAL Constipation 06/11/19 08:45 07/11/19 08:44 Tamsulosin HCl (Flomax) 0.4 mg BID ORAL 06/11/19 09:00 07/11/19 08:59 06/13/19 09:01 Zolpidem Tartrate (Ambien) 5 mg HSPRN PRN ORAL Insomnia 06/11/19 08:45 06/18/19 08:44 Cha Underwood M.D. Jun 13, 2019 13:00
--- NOTE | 2019-06-13 13:16 | Pulmonology Progress Note ---
Assessment/Plan Problems: (1) Acute encephalopathy (2) Agitation (3) COPD (chronic obstructive pulmonary disease) (4) Hypothyroidism (5) Anemia (6) Psychosis Assessment/Plan wants some mylanta in better mood f/u psych recommendations anemia w/u in progress respiratory treatment titrate fio2 to sat of 92% Subjective ROS Limited/Unobtainable: No Constitutional: Reports: no symptoms HEENT: Repors: no symptoms Respiratory: Reports: no symptoms Allergies: Coded Allergies: CHLORPROMAZINE (Unverified Allergy, Unknown, 05/24/18) CLOZAPINE (Unverified Allergy, Unknown, 05/24/18) [place] (Unverified Allergy, Unknown, 06/12/19) FROM [facility] DIVALPROEX SODIUM (Unverified Allergy, Unknown, 05/24/18) FISH CONTAINING PRODUCTS (Unverified Allergy, Unknown, 06/12/19) FROM [facility] HALOPERIDOL (Unverified Allergy, Unknown, 05/24/18) ONION (Unverified Allergy, Unknown, 06/12/19) FROM [facility] PENICILLINS (Verified Allergy, Unknown, 06/11/19) SERTRALINE (Unverified Allergy, Unknown, 05/24/18) Uncoded Allergies: CLOZASIL (Allergy, Unknown, 07/23/18) ZUCCHINI (Allergy, Unknown, 06/12/19) FROM [facility] Objective Last 24 Hour Vital Signs Date Time Temp Pulse Resp B/P (MAP) Pulse Ox O2 Delivery O2 Flow Rate FiO2 06/13/19 12:00 98.1 106 20 106/74 (85) 97 06/13/19 11:07 98.1 06/13/19 08:30 Room Air 06/13/19 08:00 97.7 88 18 99/66 (77) 99 06/13/19 07:25 93 12 96 Room Air 21 06/13/19 04:00 98.2 89 18 121/69 (86) 98 06/13/19 00:00 98.6 91 18 122/66 (84) 96 06/12/19 22:44 100 20 96 Room Air 21 06/12/19 21:36 96 18 98 Room Air 21 06/12/19 21:00 Room Air 06/12/19 20:00 98.9 95 18 127/68 (87) 95 06/12/19 16:00 97.1 101 19 114/82 (93) 97 06/12/19 15:22 108 20 100 Room Air 21 06/12/19 15:13 112 22 98 Room Air 21 Intake and Output 06/12/19 06/13/19 19:00 07:00 Intake Total 712 ml Output Total 1800 ml 700 ml Balance -1088 ml -700 ml Intake Oral 712 ml Output Urine Total 1800 ml 700 ml # Voids 2 General Appearance: WD/WN, no acute distress HEENT: normocephalic, atraumatic Respiratory/Chest: chest wall non-tender, lungs clear Cardiovascular: normal peripheral pulses, normal rate Abdomen: normal bowel sounds, soft, non tender 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, no motor/sensory deficits Microbiology Date/Time Source Procedure Growth Status 06/11/19 14:30 Urine,Clean Catch Urine Culture - Preliminary Resulted 06/11/19 04:55 Urine,Clean Catch Urine Culture - Preliminary Pseudomonas Aeruginosa Resulted Laboratory Tests 06/13/19 05:35: Ferritin 133 06/13/19 05:41: White Blood Count 6.7, Red Blood Count 3.70L, Hemoglobin 11.2L, Hematocrit 34.5L , Mean Corpuscular Volume 93, Mean Corpuscular Hemoglobin 30.2, Mean Corpuscular Hemoglobin Concent 32.4, Red Cell Distribution Width 14.4, Platelet Count 172, Mean Platelet Volume 5.3L, Neutrophils (%) (Auto) 65.6, Lymphocytes ( %) (Auto) 21.2, Monocytes (%) (Auto) 8.3, Eosinophils (%) (Auto) 3.9H, Basophils (%) (Auto) 1.1, Sodium Level 140, Potassium Level 3.8, Chloride Level 105, Carbon Dioxide Level 26, Anion Gap 9, Blood Urea Nitrogen 18, Creatinine 1.6H, Estimat Glomerular Filtration Rate 44.2, Glucose Level 104, Calcium Level 8.9 Current Medications Medications (Trade) Dose Ordered Sig/Cori Route PRN Reason Start Time Stop Time Status Last Admin Dose Admin Acetaminophen (Tylenol) 650 mg Q4H PRN ORAL fever 06/11/19 08:45 07/11/19 08:44 06/11/19 11:57 Acetaminophen/ Hydrocodone Bitart ([place] 5/325) 1 tab Q4H PRN ORAL Moderate Pain (Pain Scale 4-6) 06/11/19 14:00 06/18/19 13:59 06/13/19 10:37 Al Hydroxide/Mg Hydroxide (Mylanta) 30 ml Q6H PRN ORAL Abdominal cramps 06/13/19 12:45 07/13/19 12:44 Albuterol/ Ipratropium (Albuterol/ Ipratropium) 3 ml Q4H PRN HHN Shortness of Breath 06/11/19 14:00 06/16/19 13:59 06/12/19 22:41 Clonazepam (KlonoPIN) 2 mg Q6H PRN ORAL For Anxiety 06/11/19 11:15 06/18/19 11:14 06/13/19 07:07 Dextrose (Dextrose 50%) 25 ml Q30M PRN IV Hypoglycemia 06/11/19 08:45 07/11/19 08:44 Dextrose (Dextrose 50%) 50 ml Q30M PRN IV Hypoglycemia 06/11/19 08:45 07/11/19 08:44 Finasteride (Proscar) 5 mg DAILY ORAL 06/11/19 09:00 07/11/19 08:59 06/13/19 09:01 Levothyroxine Sodium (Synthroid) 100 mcg DAILY ORAL 06/11/19 09:00 07/11/19 08:59 06/13/19 09:01 Lorazepam (Ativan 2mg/ml 1ml) 0.5 mg Q4H PRN IV For Anxiety 06/11/19 11:15 06/18/19 08:44 Morphine Sulfate (Morphine Sulfate) 1 mg Q4H PRN IVP For Pain 06/11/19 08:45 06/18/19 08:44 06/11/19 09:41 Olanzapine (ZyPREXA) 10 mg BID ORAL 06/11/19 09:00 07/11/19 08:59 06/13/19 09:01 Ondansetron HCl (Zofran) 4 mg Q6H PRN IVP Nausea & Vomiting 06/11/19 08:45 07/11/19 08:44 Polyethylene Glycol (Miralax) 17 gm HSPRN PRN ORAL Constipation 06/11/19 08:45 07/11/19 08:44 Tamsulosin HCl (Flomax) 0.4 mg BID ORAL 06/11/19 09:00 07/11/19 08:59 06/13/19 09:01 Zolpidem Tartrate (Ambien) 5 mg HSPRN PRN ORAL Insomnia 06/11/19 08:45 06/18/19 08:44 Murali Allen MD Jun 13, 2019 13:16
--- NOTE | 2019-06-13 13:28 | General Progress Note ---
Assessment/Plan Problem List: (1) UTI (urinary tract infection) ICD Codes: N39.0 - Urinary tract infection, site not specified SNOMED: 98867102 Qualifiers: Qualified Codes: N30.00 - Acute cystitis without hematuria (2) COPD exacerbation ICD Codes: J44.1 - Chronic obstructive pulmonary disease with (acute) exacerbation SNOMED: 659032525 (3) ATN (acute tubular necrosis) ICD Codes: N17.0 - Acute kidney failure with tubular necrosis SNOMED: 96660282 (4) Asthma ICD Codes: J45.909 - Unspecified asthma, uncomplicated SNOMED: 027412384 (5) Agitation ICD Codes: R45.1 - Restlessness and agitation SNOMED: 106775846 Status: stable, progressing Assessment/Plan: pt diet abx cbc bmp am psyc transfer w dr rivera Subjective Constitutional: Reports: weakness Allergies: Coded Allergies: CHLORPROMAZINE (Unverified Allergy, Unknown, 05/24/18) CLOZAPINE (Unverified Allergy, Unknown, 05/24/18) [place] (Unverified Allergy, Unknown, 06/12/19) FROM [facility] DIVALPROEX SODIUM (Unverified Allergy, Unknown, 05/24/18) FISH CONTAINING PRODUCTS (Unverified Allergy, Unknown, 06/12/19) FROM [facility] HALOPERIDOL (Unverified Allergy, Unknown, 05/24/18) ONION (Unverified Allergy, Unknown, 06/12/19) FROM [facility] PENICILLINS (Verified Allergy, Unknown, 06/11/19) SERTRALINE (Unverified Allergy, Unknown, 05/24/18) Uncoded Allergies: CLOZASIL (Allergy, Unknown, 07/23/18) ZUCCHINI (Allergy, Unknown, 06/12/19) FROM [facility] All Systems: reviewed and negative except above Subjective sleepy calm Objective Last 24 Hour Vital Signs Date Time Temp Pulse Resp B/P (MAP) Pulse Ox O2 Delivery O2 Flow Rate FiO2 06/13/19 12:00 98.1 106 20 106/74 (85) 97 06/13/19 11:07 98.1 06/13/19 08:30 Room Air 06/13/19 08:00 97.7 88 18 99/66 (77) 99 06/13/19 07:25 93 12 96 Room Air 21 06/13/19 04:00 98.2 89 18 121/69 (86) 98 06/13/19 00:00 98.6 91 18 122/66 (84) 96 06/12/19 22:44 100 20 96 Room Air 21 06/12/19 21:36 96 18 98 Room Air 21 06/12/19 21:00 Room Air 06/12/19 20:00 98.9 95 18 127/68 (87) 95 06/12/19 16:00 97.1 101 19 114/82 (93) 97 06/12/19 15:22 108 20 100 Room Air 21 06/12/19 15:13 112 22 98 Room Air 21 Intake and Output 06/12/19 06/13/19 19:00 07:00 Intake Total 712 ml Output Total 1800 ml 700 ml Balance -1088 ml -700 ml Intake Oral 712 ml Output Urine Total 1800 ml 700 ml # Voids 2 Laboratory Tests 06/13/19 05:35: Ferritin 133 06/13/19 05:41: White Blood Count 6.7, Red Blood Count 3.70L, Hemoglobin 11.2L, Hematocrit 34.5L , Mean Corpuscular Volume 93, Mean Corpuscular Hemoglobin 30.2, Mean Corpuscular Hemoglobin Concent 32.4, Red Cell Distribution Width 14.4, Platelet Count 172, Mean Platelet Volume 5.3L, Neutrophils (%) (Auto) 65.6, Lymphocytes ( %) (Auto) 21.2, Monocytes (%) (Auto) 8.3, Eosinophils (%) (Auto) 3.9H, Basophils (%) (Auto) 1.1, Sodium Level 140, Potassium Level 3.8, Chloride Level 105, Carbon Dioxide Level 26, Anion Gap 9, Blood Urea Nitrogen 18, Creatinine 1.6H, Estimat Glomerular Filtration Rate 44.2, Glucose Level 104, Calcium Level 8.9 Height (Feet): 5 Height (Inches): 9.00 Weight (Pounds): 140 General Appearance: lethargic EENT: normal ENT inspection Neck: normal alignment Cardiovascular: normal peripheral pulses, normal rate, regular rhythm Respiratory/Chest: chest wall non-tender, lungs clear, normal breath sounds Abdomen: normal bowel sounds, non tender, soft Extremities: normal inspection Edema: no edema noted Arm (L), no edema noted Arm (R), no edema noted Leg (L), no edema noted Leg (R), no edema noted Pedal (L), no edema noted Pedal (R), no edema noted Generalized Neurologic: motor weakness Skin: normal pigmentation, warm/dry Mansoor Villafuerte DO Jun 13, 2019 13:28
--- NOTE | 2019-06-13 14:31 | NUR ---
CANDY WRAPPING MACHINE OPERATORSOLAR TECHNICIAN SI: AGITATION 98.1 HR 106 RR 20 B/P 106/74 RA 98% CR. 1.6 IS: MYLANTA PO ZYPREXA PO FLOMAX PO PSYCH TRANSFER MED/SURG STATUS
[2019-06-13] MEDS: Albuterol/Ipratropium 3ml neb HHN PRN (15:59)
--- NOTE | 2019-06-13 16:56 | NUR ---
Social Service Note Referrals faxed to the following: [facility] [phone] (p) [phone] (f) [facility] [phone] (p) [phone] (f) Addendum: 06/13/19 at 1815 by WHITNEY MUELLER JESSIE spoke with Aria at [facility] no clinician currently available. However patient accepted. Patient not willing to go voluntary. JESSIE provided nursing station number in the event a clinician comes available. [facility] doesn't have a clinician available. Dr. Way and Dr. Villafuerte notified.
--- NOTE | 2019-06-13 17:00 | Progress Note ---
DATE: 06/13/2019 SUBJECTIVE: The patient is a 63-year-old male patient psychomotor agitation and irritability. He still has some mood lability and confusion. He is more and more calm during his initial evaluation time. MENTAL STATUS EXAMINATION: This is a 63-year-old male. Appearance is disheveled. Attitude, irritable and agitated. Affect, guarded and restricted. Intellect poor. Mood, depressed and anxious. Motor activity, psychomotor agitation. Insight and judgment are poor. Denies suicidal ideation. DIAGNOSIS: Paranoid schizophrenia with acute exacerbation. PLAN: Treat him with Zyprexa 10 mg twice a day. . The 20 minutes of psychotherapy to reduce any depression, anxiety, mood lability, and help him have more adaptive behavioral pattern. That is why 20 minutes of cognitive behavioral therapy was also provided. Chart was reviewed. Discussed with staff. Seen and assessed in his room. Shantanu Way M.D. DR: MAGNOLIA JOB#: [id number] CC:
--- NOTE | 2019-06-13 19:15 | NUR ---
HAND-OFF: Report given to
--- NOTE | 2019-06-13 19:16 | NUR ---
NURSE NOTES: Received patient in no apparent distress. A&OX4. IV site patent and intact. Ramirez cath draining well by gravity, yellow urine noted. Bed in lowest position. Call light within reach. Will continue to monitor.
--- NOTE | 2019-06-13 20:00 | NUR ---
NURSE NOTES: Allison Thomas who PET vfx artist from [facility] came, evaluate patient. They will accept the patient, going to room 501.
--- NOTE | 2019-06-13 20:10 | NUR ---
NURSE NOTES: Per well drill operator cable tool, Patient going to urgent care first at [facility] and going to room 501. Address is [address] [place] [id number]. [phone].
--- NOTE | 2019-06-13 20:36 | NUR ---
NURSE NOTES: Notified Dr. Villafuerte and obtained discharge order, discharge with continue hospital medication.
[2019-06-13] MEDS ORDERED: SYNTHROID100 MCG ORAL (21:13)
[2019-06-13] MEDS ORDERED: ACETAMINOPHEN325 M1 ORAL (21:22)
[2019-06-13] MEDS ORDERED: CLONAZEPAM2 MG PO (21:23)
[2019-06-13] MEDS ORDERED: NORCO 5-325 TA1 EACH ORAL (21:24)
[2019-06-13] MEDS ORDERED: DUONEB 0.5-3(2.53 ML HHN (21:24)
[2019-06-13] MEDS ORDERED: AMBIEN5 MG ORAL (21:27)
[2019-06-13] MEDS ORDERED: MIRALAX17 G2 ORAL (21:27)
--- NOTE | 2019-06-13 22:48 | NUR ---
NURSE NOTES: Ambulance came, Patient's HR was 120~134, BP 119/81. Notified Dr. Villafuerte and Dr. Allen.
--- NOTE | 2019-06-13 22:57 | NUR ---
NURSE NOTES: Confirm with Dr. Kang for ok to discharge with HR 120~134.
--- NOTE | 2019-06-13 23:30 | NUR ---
NURSE NOTES: Ambulance staff contacted Yasmani who working at [facility]. They says that they can't accept patient with increased HR. Charge nurse contacted ER Dr. Griggs who working at ER, Dr. Griggs says that HR should be lowered.
--- NOTE | 2019-06-13 23:39 | NUR ---
NURSE NOTES: Call and left message Dr. Villafuerte and Dr. Way regarding unable to discharge at this time due to increased HR. Waiting a call back.
[2019-06-14] VITALS (7 sets, daily range): BP systolic 92–114; BP diastolic 65–77
--- NOTE | 2019-06-14 03:37 | NUR ---
NURSE NOTES: Obtained order of Clonidine 0.1mg po qid and consult Dr. Avendano from Dr. Villafuerte.
--- NOTE | 2019-06-14 03:57 | NUR ---
NURSE NOTES: Call and left message to Dr. Avendano regarding increased HR. Waiting a call back.
--- NOTE | 2019-06-14 06:40 | NUR ---
NURSE NOTES: Obtained stat ECG order from Dr. Avendano.
[2019-06-14] MEDS: HYDROcodone/Acetamin 5/325 tab ORAL PRN ×3 (06:48→22:07)
[2019-06-14 06:57] LABS: ANION GAP 8 mmol/L (5-15); BLOOD UREA NITROGEN 19 mg/dL (7-18); CALCIUM 8.9 MG/DL (8.5-10.1); CARBON DIOXIDE 23 MMOL/L (21-32); CHLORIDE 105 MMOL/L (98-107); CREATININE 1.7 MG/DL (0.55-1.30); POTASSIUM 3.8 MMOL/L (3.5-5.1); SODIUM 136 MMOL/L (136-145)
[2019-06-14 07:11] LABS: BASOPHILS % (AUTO) 1.9 % (0.0-2.0); EOSINOPHILS % (AUTO) 3.5 % (0.0-3.0); HEMATOCRIT 34.9 % (42.0-52.0); HEMOGLOBIN 11.2 G/DL (14.2-18.0); LYMPHOCYTES % (AUTO) 24.1 % (20.0-45.0); MEAN CORPUSCULAR VOLUME 95 FL (80-99); MONOCYTES % (AUTO) 9.9 % (1.0-10.0); NEUTROPHILS % (AUTO) 60.6 % (45.0-75.0); PLATELET COUNT 159 K/UL (150-450); RED BLOOD COUNT 3.68 M/UL (4.70-6.10); RED CELL DISTRIBUTION WIDTH 14.8 % (11.6-14.8); WHITE BLOOD COUNT 6.1 K/UL (4.8-10.8)
--- NOTE | 2019-06-14 07:44 | Progress Note ---
DATE: 06/14/2019 SUBJECTIVE: This is a 63-year-old male patient has agitation. He came in because of altered mental status and psychomotor agitation. He still has some agitation, irritability, confusion, disorganized thought process, and mood lability worsened by stress of his medical illness, highly paranoid and delusional as well, intermittently agitating currently with the nurses, but he denies any current. He is able to contract for safety in the hospital, but he states cannot contract for safety to leave the hospital. STRENGTHS: He is motivated to get better and he is relatively healthy. WEAKNESSES: He is impulsive. He has got no support system. MENTAL STATUS EXAMINATION: This is a 63-year-old male patient. Appearance is disheveled. Attitude, irritable and agitated. Affect, guarded and restricted. Intellect poor. Mood, depressed and anxious. Motor activity, psychomotor agitation. Attention span is poor. Orientation x2. Speech is pressured. Thought process, disorganized and illogical. Thought content, auditory hallucinations and paranoid delusions. Insight and judgment is poor. DIAGNOSIS: Paranoid schizophrenia acute exacerbation. PLAN: Continue Zyprexa 10 mg twice a day to reduce psychosis and agitation. Transfer to psych unit at [facility] once he is medically cleared. Chart reviewed. Discussed with staff. Seen and assessed . Shantanu Way M.D. DR: MAGNOLIA JOB#: [id number] CC:
--- NOTE | 2019-06-14 07:45 | NUR ---
HAND-OFF: Report given to Kristin RAMEY.
--- NOTE | 2019-06-14 08:04 | NUR ---
Pt resting in bed. pt awake, A/O x 4, anxious. EKG done, ST 124. no IV access, aware, possible DC. cardoza in place. will dc cardoza before Discharge per Dr. Villafuerte. tolerating diet well. no N/v. waiting for Sliver Machine Operator consult.
--- NOTE | 2019-06-14 08:17 | General Progress Note ---
Assessment/Plan Problem List: (1) UTI (urinary tract infection) ICD Codes: N39.0 - Urinary tract infection, site not specified SNOMED: 16325030 Qualifiers: Qualified Codes: N30.00 - Acute cystitis without hematuria (2) COPD exacerbation ICD Codes: J44.1 - Chronic obstructive pulmonary disease with (acute) exacerbation SNOMED: 012360589 (3) ATN (acute tubular necrosis) ICD Codes: N17.0 - Acute kidney failure with tubular necrosis SNOMED: 96575649 (4) Asthma ICD Codes: J45.909 - Unspecified asthma, uncomplicated SNOMED: 771467304 (5) Agitation ICD Codes: R45.1 - Restlessness and agitation SNOMED: 069033590 Status: stable, progressing Assessment/Plan: pt diet abx cardio f/u cbc bmp am psyc transfer w dr rivera Subjective Constitutional: Reports: weakness Allergies: Coded Allergies: CHLORPROMAZINE (Unverified Allergy, Unknown, 05/24/18) CLOZAPINE (Unverified Allergy, Unknown, 05/24/18) [place] (Unverified Allergy, Unknown, 06/12/19) FROM [facility] DIVALPROEX SODIUM (Unverified Allergy, Unknown, 05/24/18) FISH CONTAINING PRODUCTS (Unverified Allergy, Unknown, 06/12/19) FROM [facility] HALOPERIDOL (Unverified Allergy, Unknown, 05/24/18) ONION (Unverified Allergy, Unknown, 06/12/19) FROM [facility] PENICILLINS (Verified Allergy, Unknown, 06/11/19) SERTRALINE (Unverified Allergy, Unknown, 05/24/18) Uncoded Allergies: CLOZASIL (Allergy, Unknown, 07/23/18) ZUCCHINI (Allergy, Unknown, 06/12/19) FROM [facility] All Systems: reviewed and negative except above Subjective sleepy calm Objective Last 24 Hour Vital Signs Date Time Temp Pulse Resp B/P (MAP) Pulse Ox O2 Delivery O2 Flow Rate FiO2 06/14/19 06:51 98.7 118 20 104/73 (83) 97 06/14/19 06:00 104/73 06/14/19 04:00 121 19 06/13/19 21:00 Room Air 06/13/19 20:00 98.4 127 20 116/69 (85) 100 06/13/19 19:42 88 14 97 Room Air 21 06/13/19 17:59 97.9 06/13/19 17:30 118/76 (90) 06/13/19 16:10 98 20 99 Room Air 21 06/13/19 16:00 93 21 97 Room Air 21 06/13/19 15:51 97.9 104 19 94/65 (75) 97 06/13/19 12:00 98.1 106 20 106/74 (85) 97 06/13/19 08:30 Room Air Intake and Output 06/13/19 06/14/19 19:00 07:00 Intake Total 720 ml Output Total 250 ml 250 ml Balance 470 ml -250 ml Intake Oral 720 ml Output Urine Total 250 ml 250 ml # Bowel Movements 1 Laboratory Tests 06/14/19 05:00: White Blood Count 6.1, Red Blood Count 3.68L, Hemoglobin 11.2L, Hematocrit 34.9L , Mean Corpuscular Volume 95, Mean Corpuscular Hemoglobin 30.4, Mean Corpuscular Hemoglobin Concent 32.0, Red Cell Distribution Width 14.8, Platelet Count 159, Mean Platelet Volume 4.4L, Neutrophils (%) (Auto) 60.6, Lymphocytes ( %) (Auto) 24.1, Monocytes (%) (Auto) 9.9, Eosinophils (%) (Auto) 3.5H, Basophils (%) (Auto) 1.9, Sodium Level 136, Potassium Level 3.8, Chloride Level 105, Carbon Dioxide Level 23, Anion Gap 8, Blood Urea Nitrogen 19H, Creatinine 1.7H, Estimat Glomerular Filtration Rate 41.2, Glucose Level 92, Calcium Level 8.9 Height (Feet): 5 Height (Inches): 9.00 Weight (Pounds): 140 General Appearance: lethargic EENT: normal ENT inspection Neck: normal alignment Cardiovascular: normal peripheral pulses, regular rhythm, tachycardia Respiratory/Chest: chest wall non-tender, lungs clear, normal breath sounds Abdomen: normal bowel sounds, non tender, soft Extremities: normal inspection Edema: no edema noted Arm (L), no edema noted Arm (R), no edema noted Leg (L), no edema noted Leg (R), no edema noted Pedal (L), no edema noted Pedal (R), no edema noted Generalized Neurologic: motor weakness Skin: normal pigmentation, warm/dry Mansoor Villafuerte DO Jun 14, 2019 08:17
[2019-06-14] MEDS: Tamsulosin 0.4mg cap ORAL SCH (08:48)
[2019-06-14] MEDS: OLANZapine 10mg tab ORAL SCH (08:51)
--- NOTE | 2019-06-14 09:30 | Hematology/Onc Progress Note ---
Assessment/Plan Assessment/Plan Assessment/Recs: # Anemia of iron deficiency (based on prior workup, ferritin was <20), hgb has been downtrending --> r/o iron deficiency and other causes, w/u has been working --> at this time, ferritin is 133, basically is wnl, does not require iron therapy --> r/u underling hemolysis, bili is wnl at this time --> peripheral smear shows no schistocytes --> esr is high at this time # Pyuria asymptomatic --> seen by id --> consider abx as per id, currently off # Aggressive behavior --> per psych management # COPD/asthma --> breathing treatment on prn basis # GERD --> continue on ppi prn # BPH # Seizure disorder # Hypothyroidism # Anxiety disorder # [facility] resident Greatly appreciate consultation, continue to closely follow. Subjective HEENT: Denies: no symptoms, eye pain, blurred vision, tearing, double vision, ear pain, ear discharge, nose pain, nose congestion, throat pain, throat swelling, mouth pain, mouth swelling, other Cardiovascular: Denies: no symptoms, chest pain, edema, irregular heart rate, lightheadedness, palpitations, syncope, other Respiratory: Denies: no symptoms, cough, shortness of breath, SOB with excertion, SOB at rest, sputum, wheezing, other Gastrointestinal/Abdominal: Denies: no symptoms, abdomen distended, abdominal pain, black stools, tarry stools, blood in stool, constipated, diarrhea, difficulty swallowing, nausea, poor appetite, poor fluid intake, rectal bleeding , vomiting, other Genitourinary: Denies: no symptoms, burning, discharge, frequency, flank pain, hematuria, incontinence, pain, urgency, other Endocrine: Denies: no symptoms, excessive sweating, flushing, intolerance to cold, intolerance to heat, increased hunger, increased thirst, increased urine, unexplained weight gain, unexplained weight loss, other Allergies: Coded Allergies: CHLORPROMAZINE (Unverified Allergy, Unknown, 05/24/18) CLOZAPINE (Unverified Allergy, Unknown, 05/24/18) [place] (Unverified Allergy, Unknown, 06/12/19) FROM [facility] DIVALPROEX SODIUM (Unverified Allergy, Unknown, 05/24/18) FISH CONTAINING PRODUCTS (Unverified Allergy, Unknown, 06/12/19) FROM [facility] HALOPERIDOL (Unverified Allergy, Unknown, 05/24/18) ONION (Unverified Allergy, Unknown, 06/12/19) FROM [facility] PENICILLINS (Verified Allergy, Unknown, 06/11/19) SERTRALINE (Unverified Allergy, Unknown, 05/24/18) Uncoded Allergies: CLOZASIL (Allergy, Unknown, 07/23/18) ZUCCHINI (Allergy, Unknown, 06/12/19) FROM [facility] Subjective 06/13: no events overnight, on abx, says doesn't want to go back to [facility] , ferritin ordered 06/14: no fevers or chills noted, no bleeding, transfer pending Objective Objective Current Medications Medications (Trade) Dose Ordered Sig/Cori Route PRN Reason Start Time Stop Time Status Last Admin Dose Admin Acetaminophen (Tylenol) 650 mg Q4H PRN ORAL fever 06/11/19 08:45 07/11/19 08:44 06/11/19 11:57 Acetaminophen/ Hydrocodone Bitart ([place] 5/325) 1 tab Q4H PRN ORAL Moderate Pain (Pain Scale 4-6) 06/11/19 14:00 06/18/19 13:59 06/14/19 06:48 Al Hydroxide/Mg Hydroxide (Mylanta) 30 ml Q6H PRN ORAL Abdominal cramps 06/13/19 12:45 07/13/19 12:44 06/13/19 20:14 Albuterol/ Ipratropium (Albuterol/ Ipratropium) 3 ml Q4H PRN HHN Shortness of Breath 06/11/19 14:00 06/16/19 13:59 06/13/19 15:59 Clonazepam (KlonoPIN) 2 mg Q6H PRN ORAL For Anxiety 06/11/19 11:15 06/18/19 11:14 06/14/19 08:49 Clonidine HCl (Catapres Tab) 0.1 mg EVERY 6 HOURS ORAL 06/14/19 06:00 07/14/19 05:59 Dextrose (Dextrose 50%) 25 ml Q30M PRN IV Hypoglycemia 06/11/19 08:45 07/11/19 08:44 Dextrose (Dextrose 50%) 50 ml Q30M PRN IV Hypoglycemia 06/11/19 08:45 07/11/19 08:44 Finasteride (Proscar) 5 mg DAILY ORAL 06/11/19 09:00 07/11/19 08:59 06/14/19 08:48 Levothyroxine Sodium (Synthroid) 100 mcg DAILY ORAL 06/11/19 09:00 07/11/19 08:59 06/14/19 08:48 Lorazepam (Ativan 2mg/ml 1ml) 0.5 mg Q4H PRN IV For Anxiety 06/11/19 11:15 06/18/19 08:44 Morphine Sulfate (Morphine Sulfate) 1 mg Q4H PRN IVP For Pain 06/11/19 08:45 06/18/19 08:44 06/11/19 09:41 Olanzapine (ZyPREXA) 10 mg BID ORAL 06/11/19 09:00 07/11/19 08:59 06/14/19 08:51 Ondansetron HCl (Zofran) 4 mg Q6H PRN IVP Nausea & Vomiting 06/11/19 08:45 07/11/19 08:44 Polyethylene Glycol (Miralax) 17 gm HSPRN PRN ORAL Constipation 06/11/19 08:45 07/11/19 08:44 Tamsulosin HCl (Flomax) 0.4 mg BID ORAL 06/11/19 09:00 07/11/19 08:59 06/14/19 08:48 Zolpidem Tartrate (Ambien) 5 mg HSPRN PRN ORAL Insomnia 06/11/19 08:45 06/18/19 08:44 Last 24 Hour Vital Signs Date Time Temp Pulse Resp B/P (MAP) Pulse Ox O2 Delivery O2 Flow Rate FiO2 06/14/19 08:00 98.5 107 18 92/65 (74) 97 06/14/19 07:46 102 19 97 Room Air 21 06/14/19 06:51 98.7 118 20 104/73 (83) 97 06/14/19 06:00 104/73 06/14/19 04:00 121 19 06/13/19 21:00 Room Air 06/13/19 20:00 98.4 127 20 116/69 (85) 100 06/13/19 19:42 88 14 97 Room Air 06/13/19 17:59 97.9 8/1/19 17:30 118/76 (90) 06/13/19 16:10 98 20 99 Room Air 21 06/13/19 16:00 93 21 97 Room Air 21 06/13/19 15:51 97.9 104 19 94/65 (75) 97 06/13/19 12:00 98.1 106 20 106/74 (85) 97 06/13/19 08:30 Room Air 06/13/19 08:00 97.7 88 18 99/66 (77) 99 06/13/19 07:25 93 12 96 Room Air 21 06/13/19 04:00 98.2 89 18 121/69 (86) 98 06/13/19 00:00 98.6 91 18 122/66 (84) 96 06/12/19 22:44 100 20 96 Room Air 21 06/12/19 21:36 96 18 98 Room Air 21 06/12/19 21:00 Room Air 06/12/19 20:00 98.9 95 18 127/68 (87) 95 06/12/19 16:00 97.1 101 19 114/82 (93) 97 06/12/19 15:22 108 20 100 Room Air 21 06/12/19 15:13 112 22 98 Room Air 06/12/19 12:00 98.4 82 20 103/81 (88) 97 Intake and Output 06/13/19 06/14/19 19:00 07:00 Intake Total 720 ml Output Total 250 ml 250 ml Balance 470 ml -250 ml Intake Oral 720 ml Output Urine Total 250 ml 250 ml # Bowel Movements 1 Labs Test 06/11/19 12:04 06/11/19 14:30 06/12/19 05:00 06/12/19 09:18 Urine Random Sodium 30 mmol/L (20-110) Urine Potassium Timed 18 mmol/L (12-62) Urine Color Pale yellow Urine Appearance Slightly cloudy Urine pH 7 (4.5-8.0) Urine Specific [place] 1.005 (1.005-1.035) Urine Protein 2+ (NEGATIVE) Urine Glucose (UA) Negative (NEGATIVE) Urine Ketones Negative (NEGATIVE) Urine Blood 5+ (NEGATIVE) Urine Nitrite Positive (NEGATIVE) Urine Bilirubin Negative (NEGATIVE) Urine Urobilinogen Normal MG/DL (0.0-1.0) Urine Leukocyte Esterase 3+ (NEGATIVE) Urine RBC 40-60 /HPF (0 - 0) Urine WBC 60-80 /HPF (0 - 0) Urine Squamous Epithelial Cells Occasional /LPF Urine Bacteria Moderate /HPF (NONE) Urine Eosinophils Few seen (NONE SEEN) White Blood Count 8.8 K/UL (4.8-10.8) Red Blood Count 4.14 M/UL (4.70-6.10) Hemoglobin 12.7 G/DL (14.2-18.0) Hematocrit 38.9 % (42.0-52.0) Mean Corpuscular Volume 94 FL (80-99) Mean Corpuscular Hemoglobin 30.7 PG (27.0-31.0) Mean Corpuscular Hemoglobin Concent 32.7 G/DL (32.0-36.0) Red Cell Distribution Width 14.4 % (11.6-14.8) Platelet Count 222 K/UL (150-450) Mean Platelet Volume 4.6 FL (6.5-10.1) Neutrophils (%) (Auto) 79.2 % (45.0-75.0) Lymphocytes (%) (Auto) 9.9 % (20.0-45.0) Monocytes (%) (Auto) 7.4 % (1.0-10.0) Eosinophils (%) (Auto) 3.0 % (0.0-3.0) Basophils (%) (Auto) 0.6 % (0.0-2.0) Differential Total Cells Counted 100 Neutrophils % (Manual) 79 % (45-75) Lymphocytes % (Manual) 10 % (20-45) Monocytes % (Manual) 9 % (1-10) Eosinophils % (Manual) 2 % (0-3) Basophils % (Manual) 0 % (0-2) Band Neutrophils 0 % (0-8) Platelet Estimate Adequate Platelet Morphology Normal Red Blood Cell Morphology Normal Erythrocyte Sedimentation Rate 45 MM/HR (0-20) Reticulocyte Count 2.2 % (0.5-2.0) Prothrombin Time 9.7 SEC (9.30-11.50) Prothromb Time International Ratio 0.9 (0.9-1.1) Activated Partial Thromboplast Time 26 SEC (23-33) Sodium Level 144 MMOL/L (136-145) Potassium Level 4.3 MMOL/L (3.5-5.1) Chloride Level 108 MMOL/L (98-107) Carbon Dioxide Level 27 MMOL/L (21-32) Anion Gap 9 mmol/L (5-15) Blood Urea Nitrogen 17 mg/dL (7-18) Creatinine 1.6 MG/DL (0.55-1.30) Estimat Glomerular Filtration Rate 44.2 mL/min (>60) Glucose Level 83 MG/DL (74-106) Calcium Level 9.8 MG/DL (8.5-10.1) Phosphorus Level 4.0 MG/DL (2.5-4.9) Magnesium Level 2.3 MG/DL (1.8-2.4) Iron Level 36 ug/dL (50-175) Total Iron Binding Capacity 284 ug/dL (250-450) Percent Iron Saturation 13 % (15-50) Unsaturated Iron Binding 248 ug/dL (112-346) Total Bilirubin 0.5 MG/DL (0.2-1.0) Aspartate Amino Transf (AST/SGOT) 16 U/L (15-37) Alanine Aminotransferase (ALT/SGPT) 21 U/L (12-78) Alkaline Phosphatase 82 U/L (46-116) Lactate Dehydrogenase 263 U/L (81-234) C-Reactive Protein, Quantitative 5.8 mg/dL (0.00-0.90) Total Protein 7.2 G/DL (6.4-8.2) Albumin 3.3 G/DL (3.4-5.0) Globulin 3.9 g/dL Albumin/Globulin Ratio 0.8 (1.0-2.7) Triglycerides Level 144 MG/DL (30-150) Cholesterol Level 217 MG/DL (< 200) LDL Cholesterol 117 mg/dL (<100) HDL Cholesterol 80 MG/DL (40-60) Cholesterol/HDL Ratio 2.7 (3.3-4.4) Carcinoembryonic Antigen 2.2 ng/mL (0.0-4.7) Vitamin B12 Level 473 PG/ML (193-986) Folate 91.9 NG/ML (8.6-58.9) Thyroid Stimulating Hormone (TSH) 0.409 uiU/mL (0.358-3.740) Stool Occult Blood Negative (NEGATIVE) Test 06/13/19 05:35 06/13/19 05:41 06/14/19 05:00 Ferritin 133 NG/ML (8-388) White Blood Count 6.7 K/UL (4.8-10.8) 6.1 K/UL (4.8-10.8) Red Blood Count 3.70 M/UL (4.70-6.10) 3.68 M/UL (4.70-6.10) Hemoglobin 11.2 G/DL (14.2-18.0) 11.2 G/DL (14.2-18.0) Hematocrit 34.5 % (42.0-52.0) 34.9 % (42.0-52.0) Mean Corpuscular Volume 93 FL (80-99) 95 FL (80-99) Mean Corpuscular Hemoglobin 30.2 PG (27.0-31.0) 30.4 PG (27.0-31.0) Mean Corpuscular Hemoglobin Concent 32.4 G/DL (32.0-36.0) 32.0 G/DL (32.0-36.0) Red Cell Distribution Width 14.4 % (11.6-14.8) 14.8 % (11.6-14.8) Platelet Count 172 K/UL (150-450) 159 K/UL (150-450) Mean Platelet Volume 5.3 FL (6.5-10.1) 4.4 FL (6.5-10.1) Neutrophils (%) (Auto) 65.6 % (45.0-75.0) 60.6 % (45.0-75.0) Lymphocytes (%) (Auto) 21.2 % (20.0-45.0) 24.1 % (20.0-45.0) Monocytes (%) (Auto) 8.3 % (1.0-10.0) 9.9 % (1.0-10.0) Eosinophils (%) (Auto) 3.9 % (0.0-3.0) 3.5 % (0.0-3.0) Basophils (%) (Auto) 1.1 % (0.0-2.0) 1.9 % (0.0-2.0) Sodium Level 140 MMOL/L (136-145) 136 MMOL/L (136-145) Potassium Level 3.8 MMOL/L (3.5-5.1) 3.8 MMOL/L (3.5-5.1) Chloride Level 105 MMOL/L (98-107) 105 MMOL/L (98-107) Carbon Dioxide Level 26 MMOL/L (21-32) 23 MMOL/L (21-32) Anion Gap 9 mmol/L (5-15) 8 mmol/L (5-15) Blood Urea Nitrogen 18 mg/dL (7-18) 19 mg/dL (7-18) Creatinine 1.6 MG/DL (0.55-1.30) 1.7 MG/DL (0.55-1.30) Estimat Glomerular Filtration Rate 44.2 mL/min (>60) 41.2 mL/min (>60) Glucose Level 104 MG/DL (74-106) 92 MG/DL (74-106) Calcium Level 8.9 MG/DL (8.5-10.1) 8.9 MG/DL (8.5-10.1) Height (Feet): 5 Height (Inches): 9.00 Weight (Pounds): 140 Objective Gen: NAD, A+O x3 Pulm: Ctab, no cwr CV: RRR, no mgr Abd: soft, nt, nd Ext: no cce Neuro: grossly intact, cn II-XII intact Ba Manriquez MD Jun 14, 2019 09:30
[2019-06-14] MEDS: Albuterol/Ipratropium 3ml neb HHN PRN ×2 (12:41→19:51)
--- NOTE | 2019-06-14 13:16 | Cardiology Report ---
APPROVED REPORT EKG Measurement Heart [id number] Sinus tachycardia Otherwise normal ECG
--- NOTE | 2019-06-14 13:31 | Infectious Diseases Prog Note ---
Assessment/Plan Assessment/Plan Abx: Ceftriaxone x1 06/11 Assessment: Aggressive behavior Afebrile No leukocytosis Pyuria- Assymptomatic -u/a wbc tnct, nit +, leuk +3; ucx >100k PsA (cruz S), MRSA (S nitrofurantoin, bactrim, tetracycline, vanco); colonizers schizophrenia COPD/asthma GERD BPH seizure disorder CKD hypothyroidism anxiety disorder [place] resident Plan: -Continue to monitor off abx unless febrile, leukocytosis or urinary symptoms -f/u cx -Monitor CBC/CMP, temperatures -switch Ramirez -Bcx x2 Thank you for this consultation. Will continue to follow along with you. Discussed with RN. Subjective Allergies: Coded Allergies: CHLORPROMAZINE (Unverified Allergy, Unknown, 05/24/18) CLOZAPINE (Unverified Allergy, Unknown, 05/24/18) [place] (Unverified Allergy, Unknown, 06/12/19) FROM [facility] REC[facility] DIVALPROEX SODIUM (Unverified Allergy, Unknown, 05/24/18) FISH CONTAINING PRODUCTS (Unverified Allergy, Unknown, 06/12/19) FROM [facility] REC[facility] HALOPERIDOL (Unverified Allergy, Unknown, 05/24/18) ONION (Unverified Allergy, Unknown, 06/12/19) FROM [facility] REC[facility] PENICILLINS (Verified Allergy, Unknown, 06/11/19) SERTRALINE (Unverified Allergy, Unknown, 05/24/18) Uncoded Allergies: CLOZASIL (Allergy, Unknown, 07/23/18) ZUCCHINI (Allergy, Unknown, 06/12/19) FROM [facility] REC[facility] Subjective afebrile no leukocytosis Objective Vital Signs Last 24 Hour Vital Signs Date Time Temp Pulse Resp B/P (MAP) Pulse Ox O2 Delivery O2 Flow Rate FiO2 06/14/19 12:49 127 21 99 Room Air 21 06/14/19 12:41 120 22 99 Room Air 21 06/14/19 11:59 98.6 06/14/19 11:34 98.6 110 18 100/74 (83) 97 06/14/19 08:00 Room Air 06/14/19 08:00 98.5 107 18 92/65 (74) 97 06/14/19 07:46 102 19 97 Room Air 21 06/14/19 06:51 98.7 118 20 104/73 (83) 97 06/14/19 06:00 104/73 06/14/19 04:00 121 19 06/13/19 21:00 Room Air 06/13/19 20:00 98.4 127 20 116/69 (85) 100 06/13/19 19:42 88 14 97 Room Air 21 06/13/19 17:30 118/76 (90) 06/13/19 16:10 98 20 99 Room Air 21 06/13/19 16:00 93 21 97 Room Air 21 06/13/19 15:51 97.9 104 19 94/65 (75) 97 Height (Feet): 5 Height (Inches): 9.00 Weight (Pounds): 140 Objective General Appearance: WD/WN Lines, tubes and drains: peripheral HEENT: normocephalic, atraumatic Neck: non-tender, normal alignment Respiratory/Chest: chest wall non-tender, lungs clear Breasts: no masses Cardiovascular/Chest: normal peripheral pulses Abdomen: normal bowel sounds Extremities: normal range of motion Microbiology Date/Time Source Procedure Growth Status 06/12/19 22:00 Nasal Nares MRSA Culture - Final Staphylococcus Aureus - Mrsa Complete 06/11/19 14:30 Urine,Clean Catch Urine Culture - Final Pseudomonas Aeruginosa Staphylococcus Aureus - Mrsa Complete Laboratory Tests Test 06/14/19 05:00 White Blood Count 6.1 K/UL (4.8-10.8) Red Blood Count 3.68 M/UL (4.70-6.10) L Hemoglobin 11.2 G/DL (14.2-18.0) L Hematocrit 34.9 % (42.0-52.0) L Mean Corpuscular Volume 95 FL (80-99) Mean Corpuscular Hemoglobin 30.4 PG (27.0-31.0) Mean Corpuscular Hemoglobin Concent 32.0 G/DL (32.0-36.0) Red Cell Distribution Width 14.8 % (11.6-14.8) Platelet Count 159 K/UL (150-450) Mean Platelet Volume 4.4 FL (6.5-10.1) L Neutrophils (%) (Auto) 60.6 % (45.0-75.0) Lymphocytes (%) (Auto) 24.1 % (20.0-45.0) Monocytes (%) (Auto) 9.9 % (1.0-10.0) Eosinophils (%) (Auto) 3.5 % (0.0-3.0) H Basophils (%) (Auto) 1.9 % (0.0-2.0) Sodium Level 136 MMOL/L (136-145) Potassium Level 3.8 MMOL/L (3.5-5.1) Chloride Level 105 MMOL/L (98-107) Carbon Dioxide Level 23 MMOL/L (21-32) Anion Gap 8 mmol/L (5-15) Blood Urea Nitrogen 19 mg/dL (7-18) H Creatinine 1.7 MG/DL (0.55-1.30) H Estimat Glomerular Filtration Rate 41.2 mL/min (>60) Glucose Level 92 MG/DL (74-106) Calcium Level 8.9 MG/DL (8.5-10.1) Current Medications Medications (Trade) Dose Ordered Sig/Cori Route PRN Reason Start Time Stop Time Status Last Admin Dose Admin Acetaminophen (Tylenol) 650 mg Q4H PRN ORAL fever 06/11/19 08:45 07/11/19 08:44 06/11/19 11:57 Acetaminophen/ Hydrocodone Bitart ([place] 5/325) 1 tab Q4H PRN ORAL Moderate Pain (Pain Scale 4-6) 06/11/19 14:00 06/18/19 13:59 06/14/19 11:36 Al Hydroxide/Mg Hydroxide (Mylanta) 30 ml Q6H PRN ORAL Abdominal cramps 06/13/19 12:45 07/13/19 12:44 06/13/19 20:14 Albuterol/ Ipratropium (Albuterol/ Ipratropium) 3 ml Q4H PRN HHN Shortness of Breath 06/11/19 14:00 06/16/19 13:59 06/14/19 12:41 Clonazepam (KlonoPIN) 2 mg Q6H PRN ORAL For Anxiety 06/11/19 11:15 06/18/19 11:14 06/14/19 08:49 Clonidine HCl (Catapres Tab) 0.1 mg EVERY 6 HOURS ORAL 06/14/19 06:00 07/14/19 05:59 Dextrose (Dextrose 50%) 25 ml Q30M PRN IV Hypoglycemia 06/11/19 08:45 07/11/19 08:44 Dextrose (Dextrose 50%) 50 ml Q30M PRN IV Hypoglycemia 06/11/19 08:45 07/11/19 08:44 Finasteride (Proscar) 5 mg DAILY ORAL 06/11/19 09:00 07/11/19 08:59 06/14/19 08:48 Levothyroxine Sodium (Synthroid) 100 mcg DAILY ORAL 06/11/19 09:00 07/11/19 08:59 06/14/19 08:48 Lorazepam (Ativan 2mg/ml 1ml) 0.5 mg Q4H PRN IV For Anxiety 06/11/19 11:15 06/18/19 08:44 Morphine Sulfate (Morphine Sulfate) 1 mg Q4H PRN IVP For Pain 06/11/19 08:45 06/18/19 08:44 06/11/19 09:41 Olanzapine (ZyPREXA) 10 mg BID ORAL 06/11/19 09:00 07/11/19 08:59 06/14/19 08:51 Ondansetron HCl (Zofran) 4 mg Q6H PRN IVP Nausea & Vomiting 06/11/19 08:45 07/11/19 08:44 Polyethylene Glycol (Miralax) 17 gm HSPRN PRN ORAL Constipation 06/11/19 08:45 07/11/19 08:44 Tamsulosin HCl (Flomax) 0.4 mg BID ORAL 06/11/19 09:00 07/11/19 08:59 06/14/19 08:48 Zolpidem Tartrate (Ambien) 5 mg HSPRN PRN ORAL Insomnia 06/11/19 08:45 06/18/19 08:44 Cha Underwood M.D. Jun 14, 2019 13:30
--- NOTE | 2019-06-14 14:41 | NUR ---
NURSE NOTES: Pts elevated HR 120, called MD , waiting for respond. will continue to monitor.
--- NOTE | 2019-06-14 15:00 | NUR ---
Social Service Note JESSIE spoke with Britni at [facility] [phone] due to patient's change of condition bed will not be held for admission. Colinfort davis to be contact for reassessment once medically appropriate. Faxed number [phone].
--- NOTE | 2019-06-14 15:19 | NUR ---
[employer] SI: TACHYCARDIA, AGITATION T. 98.5 HR 127 RR 21 B/P 101/75 RA 98% BUN 19 CR 1.7 IS: CLONIDINE PO ZYPREXA PO FLOMAX PO SYNTHROID PO ALB HHN MED/SURG STATUS
--- NOTE | 2019-06-14 15:26 | NUR ---
NURSE NOTES: Received order to transfer pt to tel unit. will continue to monitor.
--- NOTE | 2019-06-14 16:08 | NUR ---
NURSE NOTES: transfer pt in stable condition to tel. report given to Salome RAMEY. HR 107. denies pain. no SOB reported. belonging with pt. new IV inserted. cardoza in place.
[2019-06-14] MEDS ORDERED: Albuterol/Ipratropium 3ml neb HHN PRN (16:21)
--- NOTE | 2019-06-14 16:21 | NUR ---
NURSE NOTES: Received patient from Kristin RAMEY.pt awake, A/O x 4, anxious. per report: EKG done, ST 124 in med Surg. iv intact patent. Ramirez in place draining light yellow color urine by gravity. review all belonging by Kristin RAMEY. call light with in reach.placed on ekg monitor tech.will continue to monitor.
[2019-06-14] MEDS ORDERED: HYDROcodone/Acetamin 5/325 tab ORAL PRN (16:22)
[2019-06-14] MEDS ORDERED: Miralax 17gm pkt ORAL PRN (16:22)
[2019-06-14] MEDS ORDERED: LORazepam Inj 2mg/ml 1ml IV PRN ×2 (16:22→19:00)
[2019-06-14] MEDS ORDERED: Zolpidem 5mg tab ORAL PRN (16:23)
[2019-06-14] MEDS ORDERED: Morphine Sulfate 2mg/ml Inj(IV/IM USE ONLY) IVP PRN ×2 (16:45→20:45)
--- NOTE | 2019-06-14 16:47 | Cardiac Electrophysiology PN ---
Subjective Subjective [id number] Objective Last 24 Hour Vital Signs Date Time Temp Pulse Resp B/P (MAP) Pulse Ox O2 Delivery O2 Flow Rate FiO2 06/14/19 14:32 98.5 120 18 101/73 (82) 97 06/14/19 12:49 127 21 99 Room Air 21 06/14/19 12:41 120 22 99 Room Air 21 06/14/19 11:59 98.6 06/14/19 11:34 98.6 110 18 100/74 (83) 97 06/14/19 08:00 Room Air 06/14/19 08:00 98.5 107 18 92/65 (74) 97 06/14/19 07:46 102 19 97 Room Air 06/14/19 06:51 98.7 118 20 104/73 (83) 97 06/14/19 06:00 104/73 06/14/19 04:00 121 19 06/13/19 21:00 Room Air 06/13/19 20:00 98.4 127 20 116/69 (85) 100 06/13/19 19:42 88 14 97 Room Air 06/13/19 17:30 118/76 (90) Intake and Output 06/13/19 06/14/19 19:00 07:00 Intake Total 720 ml Output Total 250 ml 250 ml Balance 470 ml -250 ml Intake Oral 720 ml Output Urine Total 250 ml 250 ml # Bowel Movements 1 Laboratory Tests Test 06/14/19 05:00 White Blood Count 6.1 K/UL (4.8-10.8) Red Blood Count 3.68 M/UL (4.70-6.10) L Hemoglobin 11.2 G/DL (14.2-18.0) L Hematocrit 34.9 % (42.0-52.0) L Mean Corpuscular Volume 95 FL (80-99) Mean Corpuscular Hemoglobin 30.4 PG (27.0-31.0) Mean Corpuscular Hemoglobin Concent 32.0 G/DL (32.0-36.0) Red Cell Distribution Width 14.8 % (11.6-14.8) Platelet Count 159 K/UL (150-450) Mean Platelet Volume 4.4 FL (6.5-10.1) L Neutrophils (%) (Auto) 60.6 % (45.0-75.0) Lymphocytes (%) (Auto) 24.1 % (20.0-45.0) Monocytes (%) (Auto) 9.9 % (1.0-10.0) Eosinophils (%) (Auto) 3.5 % (0.0-3.0) H Basophils (%) (Auto) 1.9 % (0.0-2.0) Sodium Level 136 MMOL/L (136-145) Potassium Level 3.8 MMOL/L (3.5-5.1) Chloride Level 105 MMOL/L (98-107) Carbon Dioxide Level 23 MMOL/L (21-32) Anion Gap 8 mmol/L (5-15) Blood Urea Nitrogen 19 mg/dL (7-18) H Creatinine 1.7 MG/DL (0.55-1.30) H Estimat Glomerular Filtration Rate 41.2 mL/min (>60) Glucose Level 92 MG/DL (74-106) Calcium Level 8.9 MG/DL (8.5-10.1) Microbiology Date/Time Source Procedure Growth Status 06/12/19 22:00 Nasal Nares MRSA Culture - Final Staphylococcus Aureus - Mrsa Complete Ang Avendano MD Jun 14, 2019 16:47
--- NOTE | 2019-06-14 17:31 | Pulmonology Progress Note ---
Assessment/Plan Problems: (1) Tachycardia (2) Acute encephalopathy (3) Agitation (4) COPD (chronic obstructive pulmonary disease) (5) Hypothyroidism (6) Anemia (7) Psychosis Assessment/Plan telemetry monitoring in better mood f/u psych recommendations anemia w/u in progress respiratory treatment titrate fio2 to sat of 92% f/u cardiology recommendations Subjective ROS Limited/Unobtainable: No Constitutional: Reports: no symptoms HEENT: Repors: no symptoms Allergies: Coded Allergies: CHLORPROMAZINE (Unverified Allergy, Unknown, 05/24/18) CLOZAPINE (Unverified Allergy, Unknown, 05/24/18) Protivin (Unverified Allergy, Unknown, 06/12/19) FROM [facility] DIVALPROEX SODIUM (Unverified Allergy, Unknown, 05/24/18) FISH CONTAINING PRODUCTS (Unverified Allergy, Unknown, 06/12/19) FROM [facility] HALOPERIDOL (Unverified Allergy, Unknown, 05/24/18) ONION (Unverified Allergy, Unknown, 06/12/19) FROM [facility] PENICILLINS (Verified Allergy, Unknown, 06/11/19) SERTRALINE (Unverified Allergy, Unknown, 05/24/18) Uncoded Allergies: CLOZASIL (Allergy, Unknown, 07/23/18) ZUCCHINI (Allergy, Unknown, 06/12/19) FROM [facility] Objective Last 24 Hour Vital Signs Date Time Temp Pulse Resp B/P (MAP) Pulse Ox O2 Delivery O2 Flow Rate FiO2 06/14/19 14:32 98.5 120 18 101/73 (82) 97 06/14/19 12:49 127 21 99 Room Air 06/14/19 12:41 120 22 99 Room Air 06/14/19 11:59 98.6 06/14/19 11:34 98.6 110 18 100/74 (83) 97 06/14/19 08:00 Room Air 06/14/19 08:00 98.5 107 18 92/65 (74) 97 06/14/19 07:46 102 19 97 Room Air 06/14/19 06:51 98.7 118 20 104/73 (83) 97 06/14/19 06:00 104/73 06/14/19 04:00 121 19 06/13/19 21:00 Room Air 06/13/19 20:00 98.4 127 20 116/69 (85) 100 06/13/19 19:42 88 14 97 Room Air 21 Intake and Output 06/13/19 06/14/19 19:00 07:00 Intake Total 720 ml Output Total 250 ml 250 ml Balance 470 ml -250 ml Intake Oral 720 ml Output Urine Total 250 ml 250 ml # Bowel Movements 1 General Appearance: WD/WN HEENT: normocephalic, atraumatic Respiratory/Chest: chest wall non-tender, lungs clear Cardiovascular: normal peripheral pulses, normal rate Abdomen: normal bowel sounds Genitourinary: normal external genitalia Extremities: no clubbing Skin: no ulcers 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: 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 grossly normal, no motor/sensory deficits Microbiology Date/Time Source Procedure Growth Status 06/12/19 22:00 Nasal Nares MRSA Culture - Final Staphylococcus Aureus - Mrsa Complete Laboratory Tests 06/14/19 05:00: White Blood Count 6.1, Red Blood Count 3.68L, Hemoglobin 11.2L, Hematocrit 34.9L , Mean Corpuscular Volume 95, Mean Corpuscular Hemoglobin 30.4, Mean Corpuscular Hemoglobin Concent 32.0, Red Cell Distribution Width 14.8, Platelet Count 159, Mean Platelet Volume 4.4L, Neutrophils (%) (Auto) 60.6, Lymphocytes ( %) (Auto) 24.1, Monocytes (%) (Auto) 9.9, Eosinophils (%) (Auto) 3.5H, Basophils (%) (Auto) 1.9, Sodium Level 136, Potassium Level 3.8, Chloride Level 105, Carbon Dioxide Level 23, Anion Gap 8, Blood Urea Nitrogen 19H, Creatinine 1.7H, Estimat Glomerular Filtration Rate 41.2, Glucose Level 92, Calcium Level 8.9 Current Medications Medications (Trade) Dose Ordered Sig/Cori Route PRN Reason Start Time Stop Time Status Last Admin Dose Admin Acetaminophen (Tylenol) 650 mg Q4H PRN ORAL fever 06/14/19 16:21 07/14/19 16:20 Acetaminophen/ Hydrocodone Bitart ([place] 5/325) 1 tab Q4H PRN ORAL Moderate Pain (Pain Scale 4-6) 06/14/19 16:22 06/21/19 16:21 06/14/19 17:04 Al Hydroxide/Mg Hydroxide (Mylanta) 30 ml Q6H PRN ORAL Abdominal cramps 06/14/19 16:22 07/14/19 16:21 Albuterol/ Ipratropium (Albuterol/ Ipratropium) 3 ml Q4H PRN HHN Shortness of Breath 06/14/19 16:21 06/19/19 16:20 Clonazepam (KlonoPIN) 2 mg Q6H PRN ORAL For Anxiety 06/14/19 16:21 06/21/19 16:20 Dextrose (Dextrose 50%) 25 ml Q30M PRN IV Hypoglycemia 06/14/19 16:45 07/11/19 08:44 Dextrose (Dextrose 50%) 50 ml Q30M PRN IV Hypoglycemia 06/14/19 16:45 07/11/19 08:44 Finasteride (Proscar) 5 mg DAILY ORAL 06/15/19 09:00 07/11/19 08:59 Levothyroxine Sodium (Synthroid) 100 mcg Q24H ORAL 06/15/19 06:30 07/15/19 06:29 Lorazepam (Ativan 2mg/ml 1ml) 0.5 mg Q4H PRN IV For Anxiety 06/14/19 16:22 06/21/19 16:21 Metoprolol Tartrate (Lopressor) 25 mg Q12HR ORAL 06/14/19 21:00 07/14/19 20:59 Morphine Sulfate (Morphine Sulfate) 1 mg Q4H PRN IVP SEVERE PAIN 06/14/19 16:45 06/18/19 08:44 Olanzapine (ZyPREXA) 10 mg BID ORAL 06/14/19 18:00 07/11/19 08:59 06/14/19 17:03 Ondansetron HCl (Zofran) 4 mg Q6H PRN IVP Nausea & Vomiting 06/14/19 16:22 07/14/19 16:21 Polyethylene Glycol (Miralax) 17 gm HSPRN PRN ORAL Constipation 06/14/19 16:22 07/14/19 16:21 Tamsulosin HCl (Flomax) 0.4 mg BID ORAL 06/14/19 18:00 07/11/19 08:59 06/14/19 17:05 Zolpidem Tartrate (Ambien) 5 mg HSPRN PRN ORAL Insomnia 06/14/19 16:23 06/21/19 16:22 Murali Allen MD Jun 14, 2019 17:31
--- NOTE | 2019-06-14 17:46 | NUR ---
patient removed his tele box and refused let me put it back. patient instructed the propose of being in telemetry and the reason of tele box. patient noted: " you are not a doctor. i want back to [facility]." notified and he ordered to transfer patient to [facility].
[2019-06-14] MEDS ORDERED: OLANZapine 10mg tab ORAL SCH (18:00)
[2019-06-14] MEDS ORDERED: Tamsulosin 0.4mg cap ORAL SCH (18:00)
--- NOTE | 2019-06-14 18:29 | NUR ---
NURSE NOTES: pt awake alert ambulatory no c/o pain, call light within reach. bed in lowest position, locked. pt at this tiome is ambulating within the room
--- NOTE | 2019-06-14 18:32 | NUR ---
NURSE NOTES: patient transferred to [facility] med-Surg as ordered. belonging checked and report given to Wander RAMEY.
--- NOTE | 2019-06-14 19:24 | NUR ---
HAND-OFF: Report given to DEONDRE RAMEY.
--- NOTE | 2019-06-14 19:53 | NUR ---
NURSE NOTES: RECEIVED PATIENT LYING IN BED, AWAKE, ALERT/ORIENTED X3, DENIES PAIN. NO SIGNS AND SYMPTOMS OF ACUTE CARDIO RESPIRATORY DISTRESS/SHORTNESS OF BREATH, NO PERIPHERAL EDEMA NOTED, DENIES CHEST PAIN. ABDOMEN ROUND, BOWEL SOUNDS AUDIBLE, DENIES TENDERNESS. GALARZA CATHETER INTACT/PATENT, DRAINING YELLOW URINE VIA GRAVITY, NOTED WITH SEDEMENT, NO SIGNS OF HEMATURIA. SIDE RAILS UP X2, BED IN LOWEST POSITION FOR SAFETY. CALL LIGHT WITHIN REACH. NAD.
[2019-06-14] MEDS: Metoprolol 25mg tab ORAL SCH (20:20)
[2019-06-14] MEDS: Miralax 17gm pkt ORAL PRN (20:23)
[2019-06-14] MEDS ORDERED: Metoprolol 25mg tab ORAL SCH (21:00)
[2019-06-15] VITALS (8 sets, daily range): BP systolic 93–146; BP diastolic 54–73
[2019-06-15] MEDS: HYDROcodone/Acetamin 5/325 tab ORAL PRN ×5 (02:13→21:27)
--- NOTE | 2019-06-15 02:45 | Consultation ---
DATE OF CONSULTATION: 06/14/2019 CARDIAC ELECTROPHYSIOLOGY CONSULTATION CONSULTING PHYSICIAN: Ang Avendano M.D. REFERRING PHYSICIAN: Mansoor Villafuerte M.D. REASON FOR CONSULTATION: Tachycardia. HISTORY OF PRESENT ILLNESS: The patient is a 63-year-old gentleman with history of schizophrenia, COPD, and anxiety, who is a senior care resident, was brought into the emergency room for agitation. The patient was recently admitted to [facility], did not like aggressive. He took a cane and was trying to cut his arm ___. The staff called 911. The patient was sent to [facility]. The patient is stabilized and was supposed to be discharged. However, the RN noted that the patient was tachycardic, heart rate of 120 beats per minute. The patient was transferred to telemetry per my order and a cardiology consultation was obtained for further evaluation. At the time of my evaluation, the patient is alert and comfortable. Denies any chest pain or shortness of breath. REVIEW OF SYSTEMS: Review of systems was negative other than what was mentioned in the history of present illness. PAST MEDICAL HISTORY: As mentioned above. FAMILY HISTORY: Noncontributory. SOCIAL HISTORY: He is a senior care resident. Does not smoke or drink alcohol. PHYSICAL EXAMINATION: VITAL SIGNS: Show blood pressure of 101/73, pulse is 127, respirations is 21, and temperature 98.5. HEAD AND NECK: Showed no JVD. LUNGS: Clear. CARDIOVASCULAR: Shows tachycardic. S1 and S2 with no gallop or murmur. ABDOMEN: Soft and nontender. EXTREMITIES: No pitting edema. LABORATORY AND DIAGNOSTIC DATA: Labs show white count of 6.1, hemoglobin 11.2, hematocrit of 35, and platelet count of 159,000. Sodium 132, potassium 3.8, BUN of 19, creatinine 1.7, and glucose of 92. His 12-lead EKG shows sinus tachycardia at 127. His preliminary echocardiogram shows ejection fraction of 45 to 50% with no evidence of pericardial effusion. ASSESSMENT AND PLAN: 1. Tachycardia due to sinus tachycardia. I do not see any evidence of atrial fibrillation or supraventricular tachycardia. The patient however is quite comfortable, is not anxious, and is not combative at this time. I will put him on low-dose beta-betsey and discontinue his clonidine. 2. Hypertension. Again, change clonidine to metoprolol. 3. Hypothyroidism, on Synthroid. 4. Renal failure. Creatinine 1.7. Further evaluation by Nephrology. 5. Schizophrenia. 6. Benign prostatic hypertrophy, on Proscar. 7. Chronic obstructive pulmonary disease. Thank you very much, Dr. Villafuerte, for allowing me to participate in the care of this patient. Please do not hesitate to contact me for any questions regarding my evaluation. Ang Avendano M.D. DR: REID JOB#: [id number] CC:
--- NOTE | 2019-06-15 06:21 | NUR ---
NURSE NOTES: RESTED WELL, NO SIGNIFICANT CHANGE OF CONDITION NOTED THROUGHOUT THE NIGHT. SAFETY MAINTAINED. NAD.
--- NOTE | 2019-06-15 07:15 | NUR ---
NURSE NOTES: RECEIVED PATIENT LYING IN BED, CALM AND COMFORTABLE. A/A/OX3, ABLE TO MAKE THINGS KNOWN. DENIES PAIN. NO S/SX OF ACUTE CARDIO RESPIRATORY DISTRESS/SHORTNESS OF BREATH, NO PERIPHERAL EDEMA NOTED, DENIES CHEST PAIN. BOWEL SOUNDS AUDIBLE, AND ABDOMEN IS SOFT. F/C INTACT/PATENT, DRAINING YELLOW URINE VIA GRAVITY WITH SEDIMENTS, NO SIGNS OF HEMATURIA. SIDE RAILS UP X2, BED IN LOWEST POSITION FOR SAFETY. CALL LIGHT WITHIN REACH. WILL CONT TO MONITOR.
[2019-06-15] MEDS: Tamsulosin 0.4mg cap ORAL SCH ×2 (08:41→17:29)
[2019-06-15] MEDS: OLANZapine 10mg tab ORAL SCH ×2 (08:44→17:29)
[2019-06-15] MEDS: Metoprolol 25mg tab ORAL SCH ×2 (08:47→21:00)
--- NOTE | 2019-06-15 08:52 | General Progress Note ---
Assessment/Plan Problem List: (1) UTI (urinary tract infection) ICD Codes: N39.0 - Urinary tract infection, site not specified SNOMED: 28668523 Qualifiers: Qualified Codes: N30.00 - Acute cystitis without hematuria (2) COPD exacerbation ICD Codes: J44.1 - Chronic obstructive pulmonary disease with (acute) exacerbation SNOMED: 797493692 (3) ATN (acute tubular necrosis) ICD Codes: N17.0 - Acute kidney failure with tubular necrosis SNOMED: 32746181 (4) Asthma ICD Codes: J45.909 - Unspecified asthma, uncomplicated SNOMED: 022517944 (5) Agitation ICD Codes: R45.1 - Restlessness and agitation SNOMED: 635439415 Status: stable, progressing Assessment/Plan: pt diet abx cardio f/u cbc bmp am psyc transfer w dr rivera Subjective Constitutional: Reports: weakness Allergies: Coded Allergies: CHLORPROMAZINE (Unverified Allergy, Unknown, 05/24/18) CLOZAPINE (Unverified Allergy, Unknown, 05/24/18) [place] (Unverified Allergy, Unknown, 06/12/19) FROM [facility] DIVALPROEX SODIUM (Unverified Allergy, Unknown, 05/24/18) FISH CONTAINING PRODUCTS (Unverified Allergy, Unknown, 06/12/19) FROM [facility] HALOPERIDOL (Unverified Allergy, Unknown, 05/24/18) ONION (Unverified Allergy, Unknown, 06/12/19) FROM [facility] PENICILLINS (Verified Allergy, Unknown, 06/11/19) SERTRALINE (Unverified Allergy, Unknown, 05/24/18) Uncoded Allergies: CLOZASIL (Allergy, Unknown, 07/23/18) ZUCCHINI (Allergy, Unknown, 06/12/19) FROM [facility] All Systems: reviewed and negative except above Subjective sleepy calm Objective Last 24 Hour Vital Signs Date Time Temp Pulse Resp B/P (MAP) Pulse Ox O2 Delivery O2 Flow Rate FiO2 06/15/19 08:47 81 105/66 06/15/19 08:05 Room Air 06/15/19 08:00 97.9 81 19 93/61 (72) 95 06/15/19 07:02 98.2 06/15/19 04:00 98.2 83 19 107/59 (75) 95 06/15/19 00:00 97.8 84 19 146/66 (92) 96 06/14/19 20:47 Room Air 06/14/19 20:20 103 118/73 06/14/19 20:00 98.5 107 19 108/77 (87) 97 06/14/19 19:59 108 20 99 Room Air 21 06/14/19 19:51 105 20 96 Room Air 06/14/19 19:26 108 20 97 Room Air 21 06/14/19 18:29 98.0 116 18 105/71 (82) 97 06/14/19 17:34 98.5 06/14/19 16:00 98.0 115 18 114/71 (85) 97 06/14/19 14:32 98.5 120 18 101/73 (82) 97 06/14/19 12:49 127 21 99 Room Air 06/14/19 12:41 120 22 99 Room Air 06/14/19 11:59 98.6 06/14/19 11:34 98.6 110 18 100/74 (83) 97 Intake and Output 06/14/19 06/15/19 18:59 06:59 Intake Total 240 ml 1080 ml Output Total 450 ml Balance 240 ml 630 ml Intake Oral 240 ml 1080 ml Output Urine Total 450 ml Laboratory Tests 06/15/19 06:20: Troponin I 0.002, Pro-B-Type Natriuretic Peptide 38, Thyroid Stimulating Hormone (TSH) 1.861, Free Thyroxine 0.96 Height (Feet): 5 Height (Inches): 9.00 Weight (Pounds): 140 General Appearance: lethargic EENT: normal ENT inspection Neck: normal alignment Cardiovascular: normal peripheral pulses, normal rate, regular rhythm Respiratory/Chest: chest wall non-tender, lungs clear, normal breath sounds Abdomen: normal bowel sounds, non tender, soft Extremities: normal inspection Edema: no edema noted Arm (L), no edema noted Arm (R), no edema noted Leg (L), no edema noted Leg (R), no edema noted Pedal (L), no edema noted Pedal (R), no edema noted Generalized Neurologic: responsive, motor weakness Skin: normal pigmentation, warm/dry Mansoor Villafuerte DO Jun 15, 2019 08:52
--- NOTE | 2019-06-15 10:16 | Pulmonology Progress Note ---
Assessment/Plan Assessment/Plan ASSESSMENT Acute encephalopathy Pyuria possible UTI, asymptomatic COPD Paranoid schizophrenia with acute exacerbation Anemia CKD/proteinuria Sinus tachycardia Hypothyroidism BPH Hypercholesterolemia PLAN OF CARE MS floor per ID, patient asymptomatic ; no fever, no leukocytosis, monitor off antibiotics - unless fever or leukocytosis or symptoms O2 PRN titrate to keep pulse ox above 92, HHN as needed psych follows, psych meds optimized monitor H&H with goal to keep hemoglobin above 7 CEA within normal limits, stool OB negative TSH within normal limits, continue current dose of Levothyroxine monitor renal parameters and electrolytes, correct electrolytes as needed, avoid nephrotoxic; pt with known hx of CKD cardio follows, EKG with sinus tachycardia, otherwise normal started on low-dose of beta-betsey lipid panel with elevated total cholesterol and LDL , start statin change diet to low fat, low cholesterol Proscar and Flomax PT eval and Rx supportive care case discussed and evaluated by supervising physician Subjective Allergies: Coded Allergies: CHLORPROMAZINE (Unverified Allergy, Unknown, 05/24/18) CLOZAPINE (Unverified Allergy, Unknown, 05/24/18) [place] (Unverified Allergy, Unknown, 06/12/19) FROM [facility] DIVALPROEX SODIUM (Unverified Allergy, Unknown, 05/24/18) FISH CONTAINING PRODUCTS (Unverified Allergy, Unknown, 06/12/19) FROM [facility] HALOPERIDOL (Unverified Allergy, Unknown, 05/24/18) ONION (Unverified Allergy, Unknown, 06/12/19) FROM [facility] PENICILLINS (Verified Allergy, Unknown, 06/11/19) SERTRALINE (Unverified Allergy, Unknown, 05/24/18) Uncoded Allergies: CLOZASIL (Allergy, Unknown, 07/23/18) ZUCCHINI (Allergy, Unknown, 06/12/19) FROM [facility] Subjective denies chest pain, SOB pulse ox stable on RA mood stable Objective Last 24 Hour Vital Signs Date Time Temp Pulse Resp B/P (MAP) Pulse Ox O2 Delivery O2 Flow Rate FiO2 06/15/19 09:27 103 18 98 Room Air 21 06/15/19 08:47 81 105/66 06/15/19 08:41 81 105/66 (79) 06/15/19 08:05 Room Air 06/15/19 08:00 97.9 81 19 93/61 (72) 95 8/3/19 07:02 98.2 06/15/19 04:00 98.2 83 19 107/59 (75) 95 06/15/19 00:00 97.8 84 19 146/66 (92) 96 06/14/19 20:47 Room Air 06/14/19 20:20 103 118/73 06/14/19 20:00 98.5 107 19 108/77 (87) 97 06/14/19 19:59 108 20 99 Room Air 21 06/14/19 19:51 105 20 96 Room Air 21 06/14/19 19:26 108 20 97 Room Air 21 06/14/19 18:29 98.0 116 18 105/71 (82) 97 06/14/19 17:34 98.5 06/14/19 16:00 98.0 115 18 114/71 (85) 97 06/14/19 14:32 98.5 120 18 101/73 (82) 97 06/14/19 12:49 127 21 99 Room Air 06/14/19 12:41 120 22 99 Room Air 21 06/14/19 11:59 98.6 06/14/19 11:34 98.6 110 18 100/74 (83) 97 Intake and Output 06/14/19 06/15/19 19:00 07:00 Intake Total 240 ml 1080 ml Output Total 450 ml Balance 240 ml 630 ml Intake Oral 240 ml 1080 ml Output Urine Total 450 ml General Appearance: no acute distress, other - awake, alert, stable mood male in NAD HEENT: normocephalic, atraumatic, anicteric, mucous membranes moist Respiratory/Chest: lungs clear, no respiratory distress, no accessory muscle use Cardiovascular: normal rate, no JVD Abdomen: normal bowel sounds, soft, non tender, non distended Extremities: no edema 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: no motor/sensory deficits, alert, responsive Musculoskeletal: normal muscle bulk Microbiology Date/Time Source Procedure Growth Status 06/12/19 22:00 Nasal Nares MRSA Culture - Final Staphylococcus Aureus - Mrsa Complete 06/12/19 22:00 Rectum - Final NO CARBAPENEM-RESISTANT ENTEROBACTERI... Complete 06/12/19 22:00 Rectum VRE Culture - Final NO VANCOMYCIN RESISTANT ENTEROCOCCUS ... Complete 06/12/19 22:00 Rectum - Final NO CARBAPENEM-RESISTANT ENTEROBACTERI... Complete Laboratory Tests 06/15/19 06:20: Troponin I 0.002, Pro-B-Type Natriuretic Peptide 38, Thyroid Stimulating Hormone (TSH) 1.861, Free Thyroxine 0.96 Current Medications Medications (Trade) Dose Ordered Sig/Cori Route PRN Reason Start Time Stop Time Status Last Admin Dose Admin Acetaminophen (Tylenol) 650 mg Q4H PRN ORAL fever (temp>100.5F) 06/14/19 20:30 07/14/19 16:20 Acetaminophen/ Hydrocodone Bitart ([place] 5/325) 1 tab Q4H PRN ORAL Moderate Pain (Pain Scale 4-6) 06/14/19 21:00 06/21/19 20:59 06/15/19 06:32 Al Hydroxide/Mg Hydroxide (Mylanta) 30 ml Q6H PRN ORAL Abdominal cramps 06/14/19 19:00 07/14/19 18:59 06/15/19 08:44 Albuterol/ Ipratropium (Albuterol/ Ipratropium) 3 ml Q4H PRN HHN Shortness of Breath 06/14/19 19:00 06/19/19 18:59 06/14/19 19:51 Clonazepam (KlonoPIN) 2 mg Q6H PRN ORAL For Anxiety 06/14/19 19:00 06/21/19 18:59 06/15/19 08:44 Dextrose (Dextrose 50%) 25 ml Q30M PRN IV Hypoglycemia 06/14/19 18:15 07/11/19 08:44 Dextrose (Dextrose 50%) 50 ml Q30M PRN IV Hypoglycemia 06/14/19 18:15 07/11/19 08:44 Finasteride (Proscar) 5 mg DAILY ORAL 06/15/19 09:00 07/11/19 08:59 06/15/19 08:42 Levothyroxine Sodium (Synthroid) 100 mcg Q24H ORAL 06/15/19 06:30 07/15/19 06:29 06/15/19 06:32 Lorazepam (Ativan 2mg/ml 1ml) 0.5 mg Q4H PRN IV For Anxiety 06/14/19 19:00 06/21/19 18:59 Metoprolol Tartrate (Lopressor) 25 mg Q12HR ORAL 06/14/19 21:00 07/14/19 20:59 06/15/19 08:47 Morphine Sulfate (Morphine Sulfate) 1 mg Q4H PRN IVP SEVERE PAIN (7-10) 06/14/19 20:45 06/18/19 08:44 Olanzapine (ZyPREXA) 10 mg BID ORAL 06/15/19 09:00 07/15/19 08:59 06/15/19 08:44 Ondansetron HCl (Zofran) 4 mg Q6H PRN IVP Nausea & Vomiting 06/14/19 19:00 07/14/19 18:59 Polyethylene Glycol (Miralax) 17 gm HSPRN PRN ORAL Constipation 06/14/19 20:00 07/14/19 19:59 06/14/19 20:23 Tamsulosin HCl (Flomax) 0.4 mg BID ORAL 06/15/19 09:00 07/15/19 08:59 06/15/19 08:41 Zolpidem Tartrate (Ambien) 5 mg HSPRN PRN ORAL Insomnia 06/15/19 20:00 06/21/19 19:59 Ilene Garza NP Jun 15, 2019 10:16
[2019-06-15] MEDS: Miralax 17gm pkt ORAL PRN (11:54)
[2019-06-15] MEDS ORDERED: Miralax 17gm pkt ORAL PRN (12:00)
[2019-06-15] MEDS: Albuterol/Ipratropium 3ml neb HHN PRN ×2 (12:39→19:40)
--- NOTE | 2019-06-15 14:31 | Cardiology Report ---
APPROVED REPORT EXAM: Two-dimensional and M-mode echocardiogram with Doppler and color Doppler. INDICATION Tachycardia M-Mode DIMENSIONS IVSd1.4 (0.7-1.1cm)Left Atrium (MM)3.4 (1.6-4.0cm) LVDd4.1 (3.5-5.6cm)Aortic Root3.3 (2.0-3.7cm) PWd1.2 (0.7-1.1cm)Aortic Cusp Exc.2.2 (1.5-2.0cm) LVDs3.0 (2.5-4.0cm) PWs1.6 cm Technically difficult study due to poor acoustic windows. Study quality precludes accurate assessment of regional wall motion. Normal left ventricular chamber size. Global left ventricular hypokinesis. Left ventricular ejection fraction estimated to be 40-45 %. Mild eft ventricular hypertrophy. No evidence of pericardial effusion. All other cardiac chamber sizes are within normal limits. Focal aortic valve sclerosis with adequate cusp excursion. Thickened mitral valve leaflets with normal excursion. Mitral annulus and aortic root calcification. Pulmonic valve not well visualized. Normal tricuspid valve structure. IVC is normal in size with physiological collapse. A color flow and spectral Doppler study was performed and revealed: No aortic regurgitation. No mitral regurgitation. Mitral diastolic velocities suggest mild left ventricular diastolic dysfunction (Grade I). Trace tricuspid regurgitation. Tricuspid systolic velocities suggests peak right ventricular systolic pressure of 7 mmHg.
--- NOTE | 2019-06-15 15:53 | Cardiac Electrophysiology PN ---
Assessment/Plan Assessment/Plan 1. Sinus tachycardia. I do not see any evidence of atrial fibrillation or supraventricular tachycardia. The patient however is quite comfortable, is not anxious, and is not combative at this time. On Lopressor 25 bdid better 2. Hypertension. On metoprolol 25 bid 3. Hypothyroidism, on Synthroid. 4. Renal failure. Creatinine 1.7. Further evaluation by Nephrology. 5. Schizophrenia. 6. Benign prostatic hypertrophy, on Proscar. 7. Chronic obstructive pulmonary disease. Subjective Subjective Got agitated and refused to keep monitor on and transferred to [facility] [place] Objective Last 24 Hour Vital Signs Date Time Temp Pulse Resp B/P (MAP) Pulse Ox O2 Delivery O2 Flow Rate FiO2 06/15/19 12:40 101 18 99 Room Air 06/15/19 12:32 98 18 97 Room Air 06/15/19 12:24 97.9 06/15/19 12:00 97.8 88 22 111/73 (86) 97 06/15/19 09:27 103 18 98 Room Air 06/15/19 08:47 81 105/66 06/15/19 08:41 81 105/66 (79) 06/15/19 08:05 Room Air 06/15/19 08:00 97.9 81 19 93/61 (72) 95 06/15/19 04:00 98.2 83 19 107/59 (75) 95 06/15/19 00:00 97.8 84 19 146/66 (92) 96 06/14/19 20:47 Room Air 06/14/19 20:20 103 118/73 06/14/19 20:00 98.5 107 19 108/77 (87) 97 06/14/19 19:59 108 20 99 Room Air 06/14/19 19:51 105 20 96 Room Air 06/14/19 19:26 108 20 97 Room Air 06/14/19 18:29 98.0 116 18 105/71 (82) 97 06/14/19 17:34 98.5 06/14/19 16:00 98.0 115 18 114/71 (85) 97 Intake and Output 06/14/19 06/15/19 19:00 07:00 Intake Total 240 ml 1080 ml Output Total 450 ml Balance 240 ml 630 ml Intake Oral 240 ml 1080 ml Output Urine Total 450 ml Laboratory Tests Test 06/15/19 06:20 Troponin I 0.002 ng/mL (0.000-0.056) Pro-B-Type Natriuretic Peptide 38 pg/mL (0-125) Thyroid Stimulating Hormone (TSH) 1.861 uiU/mL (0.358-3.740) Free Thyroxine 0.96 NG/DL (0.76-1.46) Microbiology Date/Time Source Procedure Growth Status 06/12/19 22:00 Nasal Nares MRSA Culture - Final Staphylococcus Aureus - Mrsa Complete 06/12/19 22:00 Rectum - Final NO CARBAPENEM-RESISTANT ENTEROBACTERI... Complete 06/12/19 22:00 Rectum VRE Culture - Final NO VANCOMYCIN RESISTANT ENTEROCOCCUS ... Complete 06/12/19 22:00 Rectum - Final NO CARBAPENEM-RESISTANT ENTEROBACTERI... Complete Objective HEAD AND NECK: Showed no JVD. LUNGS: Clear. CARDIOVASCULAR: Shows tachycardic. S1 and S2 with no gallop or murmur. ABDOMEN: Soft and nontender. EXTREMITIES: No pitting edema. Ang Avendano MD Jun 15, 2019 15:53
--- NOTE | 2019-06-15 19:07 | NUR ---
HAND-OFF: Report given to
--- NOTE | 2019-06-15 19:41 | NUR ---
NURSE NOTES: Received patient awake,alert,verbal,resting in bed.
--- NOTE | 2019-06-16 03:00 | Progress Note ---
DATE: 06/15/2019 SUBJECTIVE: This is a 63-year-old male patient with agitation, got a lot of confusion, disorganized thought process, mood lability, decline in cognition below his baseline. Concentration auditory hallucinations, delusional, easily agitated. MENTAL STATUS EXAMINATION: This is a 63-year-old male. Appearance is disheveled. Attitude, irritable and agitated. Affect, guarded and restricted. Intellect poor. Mood, depressed and anxious. Motor activity, psychomotor agitation. Insight and judgment is poor. DIAGNOSIS: Paranoid schizophrenia with acute exacerbation. PLAN: Treat him with a medication regimen consisting of Zyprexa 10 mg twice a day. A 20 minutes of cognitive behavioral therapy to help him identify automatic negative thoughts and help him to convert negative thoughts to more positive thoughts to reduce depression, anxiety, and mood lability and also provide him with 20 minutes of cognitive behavioral therapy and also transfer to psych when medically cleared. Chart reviewed. Discussed with staff. . Shantanu Way M.D. DR: MAGNOLIA JOB#: [id number] CC:
[2019-06-16] MEDS: HYDROcodone/Acetamin 5/325 tab ORAL PRN ×4 (05:50→20:10)
[2019-06-16 07:00] LABS: BASOPHILS % (AUTO) 0.9 % (0.0-2.0); EOSINOPHILS % (AUTO) 5.1 % (0.0-3.0); HEMATOCRIT 32.8 % (42.0-52.0); HEMOGLOBIN 10.7 G/DL (14.2-18.0); LYMPHOCYTES % (AUTO) 16.4 % (20.0-45.0); MEAN CORPUSCULAR VOLUME 93 FL (80-99); MONOCYTES % (AUTO) 8.1 % (1.0-10.0); NEUTROPHILS % (AUTO) 69.5 % (45.0-75.0); PLATELET COUNT 194 K/UL (150-450); RED BLOOD COUNT 3.53 M/UL (4.70-6.10); WHITE BLOOD COUNT 6.2 K/UL (4.8-10.8)
[2019-06-16 07:08] LABS: ANION GAP 7 mmol/L (5-15); BLOOD UREA NITROGEN 21 mg/dL (7-18); CALCIUM 8.9 MG/DL (8.5-10.1); CARBON DIOXIDE 27 MMOL/L (21-32); CHLORIDE 110 MMOL/L (98-107); CREATININE 1.6 MG/DL (0.55-1.30); POTASSIUM 4.4 MMOL/L (3.5-5.1); SODIUM 144 MMOL/L (136-145)
--- NOTE | 2019-06-16 07:17 | NUR ---
HAND-OFF: Report given to Mounika Carrizales RN.
--- NOTE | 2019-06-16 07:23 | NUR ---
NURSE NOTES: Patient awake, alert x4; on room air, no sign of distress and shortness of breath; no sign of chest pain; Ramirez in place drains yellow urine; IV LFA 22G flushes well; side rails up x2 and padded for seizure percussion, breaks engaged, bed at lowest position; call light within reach; will keep monitoring.
[2019-06-16 08:21] VITALS: BP 98/64
[2019-06-16] MEDS: Metoprolol 25mg tab ORAL SCH ×2 (08:26→20:09)
[2019-06-16] MEDS: Tamsulosin 0.4mg cap ORAL SCH ×2 (08:26→17:26)
[2019-06-16] MEDS: OLANZapine 10mg tab ORAL SCH ×2 (08:26→17:26)
--- NOTE | 2019-06-16 08:51 | General Progress Note ---
Assessment/Plan Problem List: (1) UTI (urinary tract infection) ICD Codes: N39.0 - Urinary tract infection, site not specified SNOMED: 01585365 Qualifiers: Qualified Codes: N30.00 - Acute cystitis without hematuria (2) COPD exacerbation ICD Codes: J44.1 - Chronic obstructive pulmonary disease with (acute) exacerbation SNOMED: 513493544 (3) ATN (acute tubular necrosis) ICD Codes: N17.0 - Acute kidney failure with tubular necrosis SNOMED: 77944362 (4) Asthma ICD Codes: J45.909 - Unspecified asthma, uncomplicated SNOMED: 762681269 (5) Agitation ICD Codes: R45.1 - Restlessness and agitation SNOMED: 774255970 Status: stable, progressing Assessment/Plan: pt diet abx cardio f/u cbc bmp am psyc transfer w dr rivera Subjective Constitutional: Reports: weakness Allergies: Coded Allergies: CHLORPROMAZINE (Unverified Allergy, Unknown, 05/24/18) CLOZAPINE (Unverified Allergy, Unknown, 05/24/18) [place] (Unverified Allergy, Unknown, 06/12/19) FROM [facility] DIVALPROEX SODIUM (Unverified Allergy, Unknown, 05/24/18) FISH CONTAINING PRODUCTS (Unverified Allergy, Unknown, 06/12/19) FROM [facility] HALOPERIDOL (Unverified Allergy, Unknown, 05/24/18) ONION (Unverified Allergy, Unknown, 06/12/19) FROM [facility] PENICILLINS (Verified Allergy, Unknown, 06/11/19) SERTRALINE (Unverified Allergy, Unknown, 05/24/18) Uncoded Allergies: CLOZASIL (Allergy, Unknown, 07/23/18) ZUCCHINI (Allergy, Unknown, 06/12/19) FROM [facility] All Systems: reviewed and negative except above Subjective sleepy calm Objective Last 24 Hour Vital Signs Date Time Temp Pulse Resp B/P (MAP) Pulse Ox O2 Delivery O2 Flow Rate FiO2 06/16/19 08:26 99 98/64 06/16/19 08:21 97.0 99 19 98/64 (75) 97 06/16/19 08:03 83 18 98 Room Air 21 06/16/19 06:20 98.0 06/15/19 21:00 83 97/62 06/15/19 20:02 Room Air 06/15/19 19:58 98.0 83 18 97/62 (74) 100 06/15/19 19:51 92 18 99 Room Air 21 06/15/19 19:41 85 18 95 Room Air 21 06/15/19 19:40 86 18 95 Room Air 21 06/15/19 17:51 88 110/65 (80) 06/15/19 16:00 98.2 80 17 94/54 (67) 98 06/15/19 12:40 101 18 99 Room Air 21 06/15/19 12:32 98 18 97 Room Air 21 06/15/19 12:00 97.8 88 22 111/73 (86) 97 06/15/19 09:27 103 18 98 Room Air 21 Intake and Output 06/15/19 06/16/19 18:59 06:59 Intake Total 1040 ml 800 ml Output Total 950 ml 950 ml Balance 90 ml -150 ml Intake Oral 1040 ml 800 ml Output Urine Total 950 ml 950 ml # Voids 2 # Bowel Movements 1 Laboratory Tests 06/16/19 06:05: White Blood Count 6.2, Red Blood Count 3.53L, Hemoglobin 10.7L, Hematocrit 32.8L , Mean Corpuscular Volume 93, Mean Corpuscular Hemoglobin 30.5, Mean Corpuscular Hemoglobin Concent 32.8, Red Cell Distribution Width 14.0, Platelet Count 194, Mean Platelet Volume 5.3L, Neutrophils (%) (Auto) 69.5, Lymphocytes ( %) (Auto) 16.4L, Monocytes (%) (Auto) 8.1, Eosinophils (%) (Auto) 5.1H, Basophils (%) (Auto) 0.9, Sodium Level 144, Potassium Level 4.4, Chloride Level 110H, Carbon Dioxide Level 27, Anion Gap 7, Blood Urea Nitrogen 21H, Creatinine 1.6H, Estimat Glomerular Filtration Rate 44.2, Glucose Level 95, Calcium Level 8.9 Height (Feet): 5 Height (Inches): 9.00 Weight (Pounds): 140 General Appearance: lethargic EENT: normal ENT inspection Neck: normal alignment Cardiovascular: normal peripheral pulses, normal rate, regular rhythm Respiratory/Chest: chest wall non-tender, lungs clear, normal breath sounds Abdomen: normal bowel sounds, non tender, soft Extremities: normal inspection Edema: no edema noted Arm (L), no edema noted Arm (R), no edema noted Leg (L), no edema noted Leg (R), no edema noted Pedal (L), no edema noted Pedal (R), no edema noted Generalized Neurologic: motor weakness Skin: normal pigmentation, warm/dry Mansoor Villafuerte DO Jun 16, 2019 08:51
--- NOTE | 2019-06-16 09:13 | Pulmonology Progress Note ---
Assessment/Plan Assessment/Plan ASSESSMENT Acute encephalopathy Pyuria possible UTI, asymptomatic COPD Paranoid schizophrenia with acute exacerbation Anemia CKD st 3/proteinuria Sinus tachycardia Hypothyroidism BPH Hypercholesterolemia PLAN OF CARE [facility] floor per ID, patient asymptomatic ; no fever, no leukocytosis, monitor off antibiotics - unless fever or leukocytosis or symptoms O2 PRN titrate to keep pulse ox above 92, HHN as needed psych follows, psych meds optimized monitor H&H with goal to keep hemoglobin above 7 CEA within normal limits, stool OB negative TSH within normal limits, continue current dose of Levothyroxine monitor renal parameters and electrolytes, correct electrolytes as needed, pt with known hx of CKD st 3, given prior renal parameters ; avoid nephrotoxic; cardio follows, EKG with sinus tachycardia, otherwise normal on low-dose of beta-betsey lipid panel with elevated total cholesterol and LDL , statin started diet changed to low fat, low cholesterol Proscar and Flomax PT eval and Rx supportive care dc plan case discussed and evaluated by supervising physician Subjective Allergies: Coded Allergies: CHLORPROMAZINE (Unverified Allergy, Unknown, 05/24/18) CLOZAPINE (Unverified Allergy, Unknown, 05/24/18) [place] (Unverified Allergy, Unknown, 06/12/19) FROM [facility] DIVALPROEX SODIUM (Unverified Allergy, Unknown, 05/24/18) FISH CONTAINING PRODUCTS (Unverified Allergy, Unknown, 06/12/19) FROM [facility] HALOPERIDOL (Unverified Allergy, Unknown, 05/24/18) ONION (Unverified Allergy, Unknown, 06/12/19) FROM [facility] PENICILLINS (Verified Allergy, Unknown, 06/11/19) SERTRALINE (Unverified Allergy, Unknown, 05/24/18) Uncoded Allergies: CLOZASIL (Allergy, Unknown, 07/23/18) ZUCCHINI (Allergy, Unknown, 06/12/19) FROM [facility] Subjective denies chest pain, SOB pulse ox stable on RA mood stable siting in the chair, just finished his breakfast Objective Last 24 Hour Vital Signs Date Time Temp Pulse Resp B/P (MAP) Pulse Ox O2 Delivery O2 Flow Rate FiO2 06/16/19 08:26 99 98/64 06/16/19 08:21 97.0 99 19 98/64 (75) 97 06/16/19 08:03 83 18 98 Room Air 21 06/16/19 06:20 98.0 06/15/19 21:00 83 97/62 06/15/19 20:02 Room Air 06/15/19 19:58 98.0 83 18 97/62 (74) 100 06/15/19 19:51 92 18 99 Room Air 21 06/15/19 19:41 85 18 95 Room Air 21 06/15/19 19:40 86 18 95 Room Air 21 06/15/19 17:51 88 110/65 (80) 06/15/19 16:00 98.2 80 17 94/54 (67) 98 06/15/19 12:40 101 18 99 Room Air 21 06/15/19 12:32 98 18 97 Room Air 21 06/15/19 12:00 97.8 88 22 111/73 (86) 97 06/15/19 09:27 103 18 98 Room Air 21 Intake and Output 06/15/19 06/16/19 18:59 06:59 Intake Total 1040 ml 800 ml Output Total 950 ml 950 ml Balance 90 ml -150 ml Intake Oral 1040 ml 800 ml Output Urine Total 950 ml 950 ml # Voids 2 # Bowel Movements 1 Objective General Appearance: no acute distress, awake, alert, stable mood male in NAD, HEENT: normocephalic, atraumatic, anicteric, mucous membranes moist Respiratory/Chest: lungs clear, no respiratory distress, no accessory muscle use Cardiovascular: normal rate, no JVD Abdomen: normal bowel sounds, soft, non tender, non distended Extremities: no edema 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: no motor/sensory deficits, alert, responsive Musculoskeletal: normal muscle bulk Microbiology Date/Time Source Procedure Growth Status 06/14/19 15:20 Blood Blood Culture - Preliminary NO GROWTH AFTER 24 HOURS Resulted 06/14/19 15:15 Blood Blood Culture - Preliminary NO GROWTH AFTER 24 HOURS Resulted Laboratory Tests 06/16/19 06:05: White Blood Count 6.2, Red Blood Count 3.53L, Hemoglobin 10.7L, Hematocrit 32.8L , Mean Corpuscular Volume 93, Mean Corpuscular Hemoglobin 30.5, Mean Corpuscular Hemoglobin Concent 32.8, Red Cell Distribution Width 14.0, Platelet Count 194, Mean Platelet Volume 5.3L, Neutrophils (%) (Auto) 69.5, Lymphocytes ( %) (Auto) 16.4L, Monocytes (%) (Auto) 8.1, Eosinophils (%) (Auto) 5.1H, Basophils (%) (Auto) 0.9, Sodium Level 144, Potassium Level 4.4, Chloride Level 110H, Carbon Dioxide Level 27, Anion Gap 7, Blood Urea Nitrogen 21H, Creatinine 1.6H, Estimat Glomerular Filtration Rate 44.2, Glucose Level 95, Calcium Level 8.9 Current Medications Medications (Trade) Dose Ordered Sig/Cori Route PRN Reason Start Time Stop Time Status Last Admin Dose Admin Acetaminophen (Tylenol) 650 mg Q4H PRN ORAL fever (temp>100.5F) 06/14/19 20:30 07/14/19 16:20 Acetaminophen/ Hydrocodone Bitart ([place] 5/325) 1 tab Q4H PRN ORAL Moderate Pain (Pain Scale 4-6) 06/14/19 21:00 06/21/19 20:59 06/16/19 05:50 Al Hydroxide/Mg Hydroxide (Mylanta) 30 ml Q6H PRN ORAL Abdominal cramps 06/14/19 19:00 07/14/19 18:59 06/15/19 08:44 Albuterol/ Ipratropium (Albuterol/ Ipratropium) 3 ml Q4H PRN HHN Shortness of Breath 06/14/19 19:00 06/19/19 18:59 06/15/19 19:40 Atorvastatin Calcium (Lipitor) 10 mg BEDTIME ORAL 06/15/19 21:00 07/15/19 20:59 06/15/19 21:26 Clonazepam (KlonoPIN) 2 mg Q6H PRN ORAL For Anxiety 06/14/19 19:00 06/21/19 18:59 06/16/19 05:50 Dextrose (Dextrose 50%) 25 ml Q30M PRN IV Hypoglycemia 06/14/19 18:15 07/11/19 08:44 Dextrose (Dextrose 50%) 50 ml Q30M PRN IV Hypoglycemia 06/14/19 18:15 07/11/19 08:44 Finasteride (Proscar) 5 mg DAILY ORAL 06/15/19 09:00 07/11/19 08:59 06/16/19 08:26 Levothyroxine Sodium (Synthroid) 100 mcg Q24H ORAL 06/15/19 06:30 07/15/19 06:29 06/16/19 05:50 Lorazepam (Ativan 2mg/ml 1ml) 0.5 mg Q4H PRN IV For Anxiety 06/14/19 19:00 06/21/19 18:59 Metoprolol Tartrate (Lopressor) 25 mg Q12HR ORAL 06/14/19 21:00 07/14/19 20:59 06/16/19 08:26 Morphine Sulfate (Morphine Sulfate) 1 mg Q4H PRN IVP SEVERE PAIN (7-10) 06/14/19 20:45 06/18/19 08:44 Olanzapine (ZyPREXA) 10 mg BID ORAL 06/15/19 09:00 07/15/19 08:59 06/16/19 08:26 Ondansetron HCl (Zofran) 4 mg Q6H PRN IVP Nausea & Vomiting 06/14/19 19:00 07/14/19 18:59 Polyethylene Glycol (Miralax) 17 gm DAILYPRN PRN ORAL Constipation 06/15/19 12:00 07/14/19 19:59 Tamsulosin HCl (Flomax) 0.4 mg BID ORAL 06/15/19 09:00 07/15/19 08:59 06/16/19 08:26 Zolpidem Tartrate (Ambien) 5 mg HSPRN PRN ORAL Insomnia 06/15/19 20:00 06/21/19 19:59 Ilene Garza NP Jun 16, 2019 09:13
--- NOTE | 2019-06-16 09:35 | Hematology/Onc Progress Note ---
Assessment/Plan Assessment/Plan Assessment/Recs: # Anemia of iron deficiency (based on prior workup, ferritin was <20), hgb has been downtrending --> r/o iron deficiency and other causes, w/u has been working --> at this time, ferritin is 133, basically is wnl, does not require iron therapy --> r/u underling hemolysis, bili is wnl at this time --> peripheral smear shows no schistocytes --> esr is high at this time # Pyuria asymptomatic --> seen by id --> consider abx as per id, is currently off # Aggressive behavior --> per psych management # COPD/asthma --> breathing treatment on prn basis # GERD --> continue on ppi prn # BPH # Seizure disorder # Hypothyroidism # Anxiety disorder # NH resident Greatly appreciate consultation, continue to closely follow. Subjective Constitutional: Denies: no symptoms, chills, fever, malaise, weakness, other HEENT: Denies: no symptoms, eye pain, blurred vision, tearing, double vision, ear pain, ear discharge, nose pain, nose congestion, throat pain, throat swelling, mouth pain, mouth swelling, other Cardiovascular: Denies: no symptoms, chest pain, edema, irregular heart rate, lightheadedness, palpitations, syncope, other Respiratory: Denies: no symptoms, cough, shortness of breath, SOB with excertion, SOB at rest, sputum, wheezing, other Gastrointestinal/Abdominal: Denies: no symptoms, abdomen distended, abdominal pain, black stools, tarry stools, blood in stool, constipated, diarrhea, difficulty swallowing, nausea, poor appetite, poor fluid intake, rectal bleeding , vomiting, other 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: Denies: no symptoms, anxiety, depressed, emotional problems, headache, numbness, paresthesia, pre-existing deficit, seizure, tingling, tremors, weakness, other Endocrine: Denies: no symptoms, excessive sweating, flushing, intolerance to cold, intolerance to heat, increased hunger, increased thirst, increased urine, unexplained weight gain, unexplained weight loss, other Allergies: Coded Allergies: CHLORPROMAZINE (Unverified Allergy, Unknown, 05/24/18) CLOZAPINE (Unverified Allergy, Unknown, 05/24/18) [place] (Unverified Allergy, Unknown, 06/12/19) FROM [facility] DIVALPROEX SODIUM (Unverified Allergy, Unknown, 05/24/18) FISH CONTAINING PRODUCTS (Unverified Allergy, Unknown, 06/12/19) FROM [facility] HALOPERIDOL (Unverified Allergy, Unknown, 05/24/18) ONION (Unverified Allergy, Unknown, 06/12/19) FROM [facility] PENICILLINS (Verified Allergy, Unknown, 06/11/19) SERTRALINE (Unverified Allergy, Unknown, 05/24/18) Uncoded Allergies: CLOZASIL (Allergy, Unknown, 07/23/18) ZUCCHINI (Allergy, Unknown, 06/12/19) FROM [facility] Subjective 06/13: no events overnight, on abx, says doesn't want to go back to [facility] , ferritin ordered 06/14: no fevers or chills noted, no bleeding, transfer pending 06/16: a+o x4, no f/c, no night sweats, labs reviewed, psych transfer potentially Objective Objective Current Medications Medications (Trade) Dose Ordered Sig/Cori Route PRN Reason Start Time Stop Time Status Last Admin Dose Admin Acetaminophen (Tylenol) 650 mg Q4H PRN ORAL fever (temp>100.5F) 06/14/19 20:30 07/14/19 16:20 Acetaminophen/ Hydrocodone Bitart ([place] 5/325) 1 tab Q4H PRN ORAL Moderate Pain (Pain Scale 4-6) 06/14/19 21:00 06/21/19 20:59 06/16/19 05:50 Al Hydroxide/Mg Hydroxide (Mylanta) 30 ml Q6H PRN ORAL Abdominal cramps 06/14/19 19:00 07/14/19 18:59 06/15/19 08:44 Albuterol/ Ipratropium (Albuterol/ Ipratropium) 3 ml Q4H PRN HHN Shortness of Breath 06/14/19 19:00 06/19/19 18:59 06/15/19 19:40 Atorvastatin Calcium (Lipitor) 10 mg BEDTIME ORAL 06/15/19 21:00 07/15/19 20:59 06/15/19 21:26 Clonazepam (KlonoPIN) 2 mg Q6H PRN ORAL For Anxiety 06/14/19 19:00 06/21/19 18:59 06/16/19 05:50 Dextrose (Dextrose 50%) 25 ml Q30M PRN IV Hypoglycemia 06/14/19 18:15 07/11/19 08:44 Dextrose (Dextrose 50%) 50 ml Q30M PRN IV Hypoglycemia 06/14/19 18:15 07/11/19 08:44 Finasteride (Proscar) 5 mg DAILY ORAL 06/15/19 09:00 07/11/19 08:59 06/16/19 08:26 Levothyroxine Sodium (Synthroid) 100 mcg Q24H ORAL 06/15/19 06:30 07/15/19 06:29 06/16/19 05:50 Lorazepam (Ativan 2mg/ml 1ml) 0.5 mg Q4H PRN IV For Anxiety 06/14/19 19:00 06/21/19 18:59 Metoprolol Tartrate (Lopressor) 25 mg Q12HR ORAL 06/14/19 21:00 07/14/19 20:59 06/16/19 08:26 Morphine Sulfate (Morphine Sulfate) 1 mg Q4H PRN IVP SEVERE PAIN (7-10) 06/14/19 20:45 06/18/19 08:44 Olanzapine (ZyPREXA) 10 mg BID ORAL 06/15/19 09:00 07/15/19 08:59 06/16/19 08:26 Ondansetron HCl (Zofran) 4 mg Q6H PRN IVP Nausea & Vomiting 06/14/19 19:00 07/14/19 18:59 Polyethylene Glycol (Miralax) 17 gm DAILYPRN PRN ORAL Constipation 06/15/19 12:00 07/14/19 19:59 Tamsulosin HCl (Flomax) 0.4 mg BID ORAL 06/15/19 09:00 07/15/19 08:59 06/16/19 08:26 Zolpidem Tartrate (Ambien) 5 mg HSPRN PRN ORAL Insomnia 06/15/19 20:00 06/21/19 19:59 Last 24 Hour Vital Signs Date Time Temp Pulse Resp B/P (MAP) Pulse Ox O2 Delivery O2 Flow Rate FiO2 06/16/19 09:00 Room Air 06/16/19 08:26 99 98/64 06/16/19 08:21 97.0 99 19 98/64 (75) 97 06/16/19 08:03 83 18 98 Room Air 21 06/16/19 06:20 98.0 06/15/19 21:00 83 97/62 06/15/19 20:02 Room Air 06/15/19 19:58 98.0 83 18 97/62 (74) 100 06/15/19 19:51 92 18 99 Room Air 21 06/15/19 19:41 85 18 95 Room Air 21 06/15/19 19:40 86 18 95 Room Air 21 06/15/19 17:51 88 110/65 (80) 06/15/19 16:00 98.2 80 17 94/54 (67) 98 06/15/19 12:40 101 18 99 Room Air 21 06/15/19 12:32 98 18 97 Room Air 21 06/15/19 12:00 97.8 88 22 111/73 (86) 97 06/15/19 09:27 103 18 98 Room Air 06/15/19 08:47 81 105/66 06/15/19 08:41 81 105/66 (79) 06/15/19 08:05 Room Air 06/15/19 08:00 97.9 81 19 93/61 (72) 95 06/15/19 04:00 98.2 83 19 107/59 (75) 95 06/15/19 00:00 97.8 84 19 146/66 (92) 96 06/14/19 20:47 Room Air 06/14/19 20:20 103 118/73 06/14/19 20:00 98.5 107 19 108/77 (87) 97 06/14/19 19:59 108 20 99 Room Air 06/14/19 19:51 105 20 96 Room Air 21 06/14/19 19:26 108 20 97 Room Air 06/14/19 18:29 98.0 116 18 105/71 (82) 97 06/14/19 17:34 98.5 06/14/19 16:00 98.0 115 18 114/71 (85) 97 06/14/19 14:32 98.5 120 18 101/73 (82) 97 06/14/19 12:49 127 21 99 Room Air 21 8/2/19 12:41 120 22 99 Room Air 21 06/14/19 11:59 98.6 06/14/19 11:34 98.6 110 18 100/74 (83) 97 Intake and Output 06/15/19 06/16/19 18:59 06:59 Intake Total 1040 ml 800 ml Output Total 950 ml 950 ml Balance 90 ml -150 ml Intake Oral 1040 ml 800 ml Output Urine Total 950 ml 950 ml # Voids 2 # Bowel Movements 1 Labs Test 06/14/19 05:00 06/15/19 06:20 06/16/19 06:05 White Blood Count 6.1 K/UL (4.8-10.8) 6.2 K/UL (4.8-10.8) Red Blood Count 3.68 M/UL (4.70-6.10) 3.53 M/UL (4.70-6.10) Hemoglobin 11.2 G/DL (14.2-18.0) 10.7 G/DL (14.2-18.0) Hematocrit 34.9 % (42.0-52.0) 32.8 % (42.0-52.0) Mean Corpuscular Volume 95 FL (80-99) 93 FL (80-99) Mean Corpuscular Hemoglobin 30.4 PG (27.0-31.0) 30.5 PG (27.0-31.0) Mean Corpuscular Hemoglobin Concent 32.0 G/DL (32.0-36.0) 32.8 G/DL (32.0-36.0) Red Cell Distribution Width 14.8 % (11.6-14.8) 14.0 % (11.6-14.8) Platelet Count 159 K/UL (150-450) 194 K/UL (150-450) Mean Platelet Volume 4.4 FL (6.5-10.1) 5.3 FL (6.5-10.1) Neutrophils (%) (Auto) 60.6 % (45.0-75.0) 69.5 % (45.0-75.0) Lymphocytes (%) (Auto) 24.1 % (20.0-45.0) 16.4 % (20.0-45.0) Monocytes (%) (Auto) 9.9 % (1.0-10.0) 8.1 % (1.0-10.0) Eosinophils (%) (Auto) 3.5 % (0.0-3.0) 5.1 % (0.0-3.0) Basophils (%) (Auto) 1.9 % (0.0-2.0) 0.9 % (0.0-2.0) Sodium Level 136 MMOL/L (136-145) 144 MMOL/L (136-145) Potassium Level 3.8 MMOL/L (3.5-5.1) 4.4 MMOL/L (3.5-5.1) Chloride Level 105 MMOL/L (98-107) 110 MMOL/L (98-107) Carbon Dioxide Level 23 MMOL/L (21-32) 27 MMOL/L (21-32) Anion Gap 8 mmol/L (5-15) 7 mmol/L (5-15) Blood Urea Nitrogen 19 mg/dL (7-18) 21 mg/dL (7-18) Creatinine 1.7 MG/DL (0.55-1.30) 1.6 MG/DL (0.55-1.30) Estimat Glomerular Filtration Rate 41.2 mL/min (>60) 44.2 mL/min (>60) Glucose Level 92 MG/DL (74-106) 95 MG/DL (74-106) Calcium Level 8.9 MG/DL (8.5-10.1) 8.9 MG/DL (8.5-10.1) Troponin I 0.002 ng/mL (0.000-0.056) Pro-B-Type Natriuretic Peptide 38 pg/mL (0-125) Thyroid Stimulating Hormone (TSH) 1.861 uiU/mL (0.358-3.740) Free Thyroxine 0.96 NG/DL (0.76-1.46) Height (Feet): 5 Height (Inches): 9.00 Weight (Pounds): 140 Objective Gen: NAD, A+O x3 Pulm: Ctab, no cwr CV: RRR, no mgr Abd: soft, nt, nd Ext: no cce Neuro: grossly intact, cn II-XII intact Ba Manriquez MD Jun 16, 2019 09:35
[2019-06-16] MEDS: Albuterol/Ipratropium 3ml neb HHN PRN ×3 (10:30→20:05)
[2019-06-16 12:00] VITALS: BP 92/60
--- NOTE | 2019-06-16 14:17 | Cardiac Electrophysiology PN ---
Assessment/Plan Assessment/Plan 1. Sinus tachycardia with any evidence of atrial fibrillation or supraventricular tachycardia. The patient however is quite comfortable, is not anxious, and is not combative at this time. On Lopressor 25 bid better 2. Hypertension. On metoprolol 25 bid 3. Hypothyroidism, on Synthroid. 4. Renal failure. Creatinine 1.7. Further evaluation by Nephrology. 5. Schizophrenia. 6. Benign prostatic hypertrophy, on Proscar. 7. Chronic obstructive pulmonary disease. SEBLE RN Subjective Subjective No CP or SOB or tachycardia on Med surge. Asking for flu shot Objective Last 24 Hour Vital Signs Date Time Temp Pulse Resp B/P (MAP) Pulse Ox O2 Delivery O2 Flow Rate FiO2 06/16/19 12:00 98.3 85 17 92/60 (71) 95 06/16/19 11:07 97.0 06/16/19 10:30 75 20 96 Room Air 21 06/16/19 09:00 Room Air 06/16/19 08:26 99 98/64 06/16/19 08:21 97.0 99 19 98/64 (75) 97 06/16/19 08:03 83 18 98 Room Air 21 06/15/19 21:00 83 97/62 06/15/19 20:02 Room Air 06/15/19 19:58 98.0 83 18 97/62 (74) 100 06/15/19 19:51 92 18 99 Room Air 21 06/15/19 19:41 85 18 95 Room Air 21 06/15/19 19:40 86 18 95 Room Air 21 06/15/19 17:51 88 110/65 (80) 06/15/19 16:00 98.2 80 17 94/54 (67) 98 Intake and Output 06/15/19 06/16/19 19:00 07:00 Intake Total 1040 ml 800 ml Output Total 950 ml 950 ml Balance 90 ml -150 ml Intake Oral 1040 ml 800 ml Output Urine Total 950 ml 950 ml # Voids 2 # Bowel Movements 1 Laboratory Tests Test 06/16/19 06:05 White Blood Count 6.2 K/UL (4.8-10.8) Red Blood Count 3.53 M/UL (4.70-6.10) L Hemoglobin 10.7 G/DL (14.2-18.0) L Hematocrit 32.8 % (42.0-52.0) L Mean Corpuscular Volume 93 FL (80-99) Mean Corpuscular Hemoglobin 30.5 PG (27.0-31.0) Mean Corpuscular Hemoglobin Concent 32.8 G/DL (32.0-36.0) Red Cell Distribution Width 14.0 % (11.6-14.8) Platelet Count 194 K/UL (150-450) Mean Platelet Volume 5.3 FL (6.5-10.1) L Neutrophils (%) (Auto) 69.5 % (45.0-75.0) Lymphocytes (%) (Auto) 16.4 % (20.0-45.0) L Monocytes (%) (Auto) 8.1 % (1.0-10.0) Eosinophils (%) (Auto) 5.1 % (0.0-3.0) H Basophils (%) (Auto) 0.9 % (0.0-2.0) Sodium Level 144 MMOL/L (136-145) Potassium Level 4.4 MMOL/L (3.5-5.1) Chloride Level 110 MMOL/L (98-107) H Carbon Dioxide Level 27 MMOL/L (21-32) Anion Gap 7 mmol/L (5-15) Blood Urea Nitrogen 21 mg/dL (7-18) H Creatinine 1.6 MG/DL (0.55-1.30) H Estimat Glomerular Filtration Rate 44.2 mL/min (>60) Glucose Level 95 MG/DL (74-106) Calcium Level 8.9 MG/DL (8.5-10.1) Microbiology Date/Time Source Procedure Growth Status 06/14/19 15:20 Blood Blood Culture - Preliminary NO GROWTH AFTER 24 HOURS Resulted 06/14/19 15:15 Blood Blood Culture - Preliminary NO GROWTH AFTER 24 HOURS Resulted Objective HEAD AND NECK: Showed no JVD. LUNGS: Clear. CARDIOVASCULAR: Shows tachycardic. S1 and S2 with no gallop or murmur. ABDOMEN: Soft and nontender. EXTREMITIES: No pitting edema. Ang Avendano MD Jun 16, 2019 14:17
[2019-06-16 16:00] VITALS: BP 100/66
--- NOTE | 2019-06-16 16:45 | Progress Note ---
DATE: 06/16/2019 SUBJECTIVE: This is a 63-year-old male patient with agitation, confusion, extreme mood lability, disorganized thought process, and pressured speech. MENTAL STATUS EXAMINATION: This is a 63-year-old male. Appearance is disheveled. Attitude, irritable and agitated. Affect, guarded and restricted. Intellect, poor. Mood, depressed and anxious. Motor activity, psychomotor agitation. Attention span is poor. Orientation x2. Speech is pressured. Thought process, disorganized and illogical. Insight and judgment is poor. DIAGNOSIS: Paranoid schizophrenia with acute exacerbation. PLAN: I am going to continue titrating up on the patient's medications to stabilize his mood. Plan for this patient is to titrate up on Zyprexa 10 mg twice a day. Provide him with 20 minutes of cognitive behavioral therapy to help him identify his automatic negative thoughts and help him convert those negative thoughts to more positive thoughts to reduce depression, anxiety, and mood lability. Chart reviewed. Discussed with staff. Seen and assessed in his room. Shantanu Way M.D. DR: ТАТЬЯНА JOB#: [id number] CC:
--- NOTE | 2019-06-16 17:44 | Infectious Diseases Prog Note ---
Assessment/Plan Assessment/Plan Abx: Ceftriaxone x1 06/11 Assessment: Aggressive behavior Afebrile No leukocytosis Pyuria- Assymptomatic -u/a wbc tnct, nit +, leuk +3; ucx >100k PsA (cruz S), MRSA (S nitrofurantoin, bactrim, tetracycline, vanco); colonizers -2d Echo: no vegetatiosn -Bcx NTD schizophrenia COPD/asthma GERD BPH seizure disorder CKD hypothyroidism anxiety disorder [place] resident Plan: -Continue to monitor off abx unless febrile, leukocytosis or urinary symptoms -f/u cx -Monitor CBC/CMP, temperatures -f/u Bcx x2 Thank you for this consultation. Will continue to follow along with you. Discussed with RN. Subjective Allergies: Coded Allergies: CHLORPROMAZINE (Unverified Allergy, Unknown, 05/24/18) CLOZAPINE (Unverified Allergy, Unknown, 05/24/18) [place] (Unverified Allergy, Unknown, 06/12/19) FROM [facility] DIVALPROEX SODIUM (Unverified Allergy, Unknown, 05/24/18) FISH CONTAINING PRODUCTS (Unverified Allergy, Unknown, 06/12/19) FROM [facility] HALOPERIDOL (Unverified Allergy, Unknown, 05/24/18) ONION (Unverified Allergy, Unknown, 06/12/19) FROM [facility] PENICILLINS (Verified Allergy, Unknown, 06/11/19) SERTRALINE (Unverified Allergy, Unknown, 05/24/18) Uncoded Allergies: CLOZASIL (Allergy, Unknown, 07/23/18) ZUCCHINI (Allergy, Unknown, 06/12/19) FROM [facility] Subjective afebrile no leukocytosis Objective Vital Signs Last 24 Hour Vital Signs Date Time Temp Pulse Resp B/P (MAP) Pulse Ox O2 Delivery O2 Flow Rate FiO2 06/16/19 16:35 87 19 98 Room Air 21 06/16/19 16:26 85 21 95 Room Air 21 06/16/19 16:13 97.8 06/16/19 16:00 97.8 98 20 100/66 (77) 98 06/16/19 12:00 98.3 85 17 92/60 (71) 95 06/16/19 10:30 75 20 96 Room Air 21 06/16/19 09:00 Room Air 06/16/19 08:26 99 98/64 06/16/19 08:21 97.0 99 19 98/64 (75) 97 06/16/19 08:03 83 18 98 Room Air 21 06/15/19 21:00 83 97/62 06/15/19 20:02 Room Air 06/15/19 19:58 98.0 83 18 97/62 (74) 100 06/15/19 19:51 92 18 99 Room Air 21 06/15/19 19:41 85 18 95 Room Air 21 06/15/19 19:40 86 18 95 Room Air 21 06/15/19 17:51 88 110/65 (80) Height (Feet): 5 Height (Inches): 9.00 Weight (Pounds): 140 Objective General Appearance: WD/WN Lines, tubes and drains: peripheral HEENT: normocephalic, atraumatic Neck: non-tender, normal alignment Respiratory/Chest: chest wall non-tender, lungs clear Breasts: no masses Cardiovascular/Chest: normal peripheral pulses Abdomen: normal bowel sounds Extremities: normal range of motion Microbiology Date/Time Source Procedure Growth Status 06/14/19 15:20 Blood Blood Culture - Preliminary NO GROWTH AFTER 24 HOURS Resulted 06/14/19 15:15 Blood Blood Culture - Preliminary NO GROWTH AFTER 24 HOURS Resulted Laboratory Tests Test 06/16/19 06:05 White Blood Count 6.2 K/UL (4.8-10.8) Red Blood Count 3.53 M/UL (4.70-6.10) L Hemoglobin 10.7 G/DL (14.2-18.0) L Hematocrit 32.8 % (42.0-52.0) L Mean Corpuscular Volume 93 FL (80-99) Mean Corpuscular Hemoglobin 30.5 PG (27.0-31.0) Mean Corpuscular Hemoglobin Concent 32.8 G/DL (32.0-36.0) Red Cell Distribution Width 14.0 % (11.6-14.8) Platelet Count 194 K/UL (150-450) Mean Platelet Volume 5.3 FL (6.5-10.1) L Neutrophils (%) (Auto) 69.5 % (45.0-75.0) Lymphocytes (%) (Auto) 16.4 % (20.0-45.0) L Monocytes (%) (Auto) 8.1 % (1.0-10.0) Eosinophils (%) (Auto) 5.1 % (0.0-3.0) H Basophils (%) (Auto) 0.9 % (0.0-2.0) Sodium Level 144 MMOL/L (136-145) Potassium Level 4.4 MMOL/L (3.5-5.1) Chloride Level 110 MMOL/L (98-107) H Carbon Dioxide Level 27 MMOL/L (21-32) Anion Gap 7 mmol/L (5-15) Blood Urea Nitrogen 21 mg/dL (7-18) H Creatinine 1.6 MG/DL (0.55-1.30) H Estimat Glomerular Filtration Rate 44.2 mL/min (>60) Glucose Level 95 MG/DL (74-106) Calcium Level 8.9 MG/DL (8.5-10.1) Current Medications Medications (Trade) Dose Ordered Sig/Cori Route PRN Reason Start Time Stop Time Status Last Admin Dose Admin Acetaminophen (Tylenol) 650 mg Q4H PRN ORAL fever (temp>100.5F) 06/14/19 20:30 07/14/19 16:20 Acetaminophen/ Hydrocodone Bitart ([place] 5/325) 1 tab Q4H PRN ORAL Moderate Pain (Pain Scale 4-6) 06/14/19 21:00 06/21/19 20:59 06/16/19 15:43 Al Hydroxide/Mg Hydroxide (Mylanta) 30 ml Q6H PRN ORAL Abdominal cramps 06/14/19 19:00 07/14/19 18:59 06/16/19 10:37 Albuterol/ Ipratropium (Albuterol/ Ipratropium) 3 ml Q4H PRN HHN Shortness of Breath 06/14/19 19:00 06/19/19 18:59 06/16/19 16:26 Atorvastatin Calcium (Lipitor) 10 mg BEDTIME ORAL 06/15/19 21:00 07/15/19 20:59 06/15/19 21:26 Clonazepam (KlonoPIN) 2 mg Q6H PRN ORAL For Anxiety 06/14/19 19:00 06/21/19 18:59 06/16/19 12:31 Dextrose (Dextrose 50%) 25 ml Q30M PRN IV Hypoglycemia 06/14/19 18:15 07/11/19 08:44 Dextrose (Dextrose 50%) 50 ml Q30M PRN IV Hypoglycemia 06/14/19 18:15 07/11/19 08:44 Finasteride (Proscar) 5 mg DAILY ORAL 06/15/19 09:00 07/11/19 08:59 06/16/19 08:26 Levothyroxine Sodium (Synthroid) 100 mcg Q24H ORAL 06/15/19 06:30 07/15/19 06:29 06/16/19 05:50 Lorazepam (Ativan 2mg/ml 1ml) 0.5 mg Q4H PRN IV For Anxiety 06/14/19 19:00 06/21/19 18:59 Metoprolol Tartrate (Lopressor) 25 mg Q12HR ORAL 06/14/19 21:00 07/14/19 20:59 06/16/19 08:26 Morphine Sulfate (Morphine Sulfate) 1 mg Q4H PRN IVP SEVERE PAIN (7-10) 06/14/19 20:45 06/18/19 08:44 Olanzapine (ZyPREXA) 10 mg BID ORAL 06/15/19 09:00 07/15/19 08:59 06/16/19 17:26 Ondansetron HCl (Zofran) 4 mg Q6H PRN IVP Nausea & Vomiting 06/14/19 19:00 07/14/19 18:59 Polyethylene Glycol (Miralax) 17 gm DAILYPRN PRN ORAL Constipation 06/15/19 12:00 07/14/19 19:59 Tamsulosin HCl (Flomax) 0.4 mg BID ORAL 06/15/19 09:00 07/15/19 08:59 06/16/19 17:26 Zolpidem Tartrate (Ambien) 5 mg HSPRN PRN ORAL Insomnia 06/15/19 20:00 06/21/19 19:59 Cha Underwood M.D. Jun 16, 2019 17:44
--- NOTE | 2019-06-16 19:21 | NUR ---
HAND-OFF: Report given to KAROLINE Villela.
--- NOTE | 2019-06-16 19:33 | NUR ---
NURSE NOTES: Received patient awake, alert, verbal, having breathing treatment.
[2019-06-16 20:07] VITALS: BP 110/72
[2019-06-17] MEDS: HYDROcodone/Acetamin 5/325 tab ORAL PRN ×4 (00:31→19:21)
[2019-06-17 06:59] LABS: BASOPHILS % (AUTO) 1.3 % (0.0-2.0); EOSINOPHILS % (AUTO) 4.9 % (0.0-3.0); HEMOGLOBIN 10.5 G/DL (14.2-18.0); LYMPHOCYTES % (AUTO) 23.4 % (20.0-45.0); MEAN CORPUSCULAR VOLUME 92 FL (80-99); MONOCYTES % (AUTO) 10.1 % (1.0-10.0); NEUTROPHILS % (AUTO) 60.4 % (45.0-75.0); PLATELET COUNT 194 K/UL (150-450); RED BLOOD COUNT 3.47 M/UL (4.70-6.10); RED CELL DISTRIBUTION WIDTH 13.7 % (11.6-14.8); WHITE BLOOD COUNT 5.1 K/UL (4.8-10.8)
[2019-06-17 07:03] LABS: ANION GAP 6 mmol/L (5-15); BLOOD UREA NITROGEN 18 mg/dL (7-18); CALCIUM 8.8 MG/DL (8.5-10.1); CARBON DIOXIDE 28 MMOL/L (21-32); CHLORIDE 105 MMOL/L (98-107); CREATININE 1.4 MG/DL (0.55-1.30); POTASSIUM 3.8 MMOL/L (3.5-5.1); SODIUM 139 MMOL/L (136-145)
--- NOTE | 2019-06-17 07:18 | NUR ---
HAND-OFF: Report given to Yousif Huggins RN.
[2019-06-17 08:00] VITALS: BP 118/77
[2019-06-17] MEDS: Metoprolol 25mg tab ORAL SCH ×2 (08:48→20:04)
[2019-06-17] MEDS: Tamsulosin 0.4mg cap ORAL SCH ×2 (08:49→17:02)
[2019-06-17] MEDS: OLANZapine 10mg tab ORAL SCH ×2 (08:49→17:02)
--- NOTE | 2019-06-17 09:45 | NUR ---
NURSE NOTES: PATIENT COMPLAINING OF CHEST PAIN, ASKING TO BE MOVED TO THE SECOND FLOOR. STATES PAIN IN THE CHEST THAT RADIATES DOWN INTO HIS ABDOMEN. DOCTOR NOTIFIED, WILL FOLLOW MD ORDERS.
--- NOTE | 2019-06-17 11:15 | NUR ---
NURSE NOTES: DOCTOR ORDERED STAT LEELA AND TROPONIN. ORDERS VERIFIED AND PLACED. WILL CONTINUE TO MONITOR PATIENT.
--- NOTE | 2019-06-17 11:25 | NUR ---
NURSE NOTES HANDOFF RECEIVED FROM KAROLINE DONOVAN. PATIENT RECEIVED RESTING IN BED. IV SITE CLEAN DRY AND INTACT SALINE LOCKED. BED IN LOCKED AND LOWEST POSITION, CALL LIGHT WITHIN REACH, NO PHYSICAL SIGNS OF DISTRESS.
[2019-06-17 12:00] VITALS: BP 125/83
--- NOTE | 2019-06-17 12:36 | General Progress Note ---
Assessment/Plan Problem List: (1) UTI (urinary tract infection) ICD Codes: N39.0 - Urinary tract infection, site not specified SNOMED: 67081843 Qualifiers: Qualified Codes: N30.00 - Acute cystitis without hematuria (2) COPD exacerbation ICD Codes: J44.1 - Chronic obstructive pulmonary disease with (acute) exacerbation SNOMED: 764171336 (3) ATN (acute tubular necrosis) ICD Codes: N17.0 - Acute kidney failure with tubular necrosis SNOMED: 10625301 (4) Asthma ICD Codes: J45.909 - Unspecified asthma, uncomplicated SNOMED: 841205436 (5) Agitation ICD Codes: R45.1 - Restlessness and agitation SNOMED: 650484657 Status: stable, progressing Assessment/Plan: pt diet abx cardio f/u cbc bmp am psyc transfer w dr rivera Subjective Constitutional: Reports: weakness Allergies: Coded Allergies: CHLORPROMAZINE (Unverified Allergy, Unknown, 05/24/18) CLOZAPINE (Unverified Allergy, Unknown, 05/24/18) [place] (Unverified Allergy, Unknown, 06/12/19) FROM [facility] DIVALPROEX SODIUM (Unverified Allergy, Unknown, 05/24/18) FISH CONTAINING PRODUCTS (Unverified Allergy, Unknown, 06/12/19) FROM [facility] HALOPERIDOL (Unverified Allergy, Unknown, 05/24/18) ONION (Unverified Allergy, Unknown, 06/12/19) FROM [facility] PENICILLINS (Verified Allergy, Unknown, 06/11/19) SERTRALINE (Unverified Allergy, Unknown, 05/24/18) Uncoded Allergies: CLOZASIL (Allergy, Unknown, 07/23/18) ZUCCHINI (Allergy, Unknown, 06/12/19) FROM [facility] All Systems: reviewed and negative except above Subjective sleepy calm Objective Last 24 Hour Vital Signs Date Time Temp Pulse Resp B/P (MAP) Pulse Ox O2 Delivery O2 Flow Rate FiO2 06/17/19 12:00 98.5 76 18 125/83 (97) 98 06/17/19 09:00 Room Air 06/17/19 08:48 105 107/68 06/17/19 08:00 98.0 80 18 118/77 (91) 97 06/17/19 07:50 99 16 97 Room Air 21 8/5/19 05:57 97.9 06/16/19 20:16 Room Air 06/16/19 20:14 92 18 99 Room Air 21 06/16/19 20:09 83 110/72 06/16/19 20:07 97.9 83 18 110/72 (85) 95 06/16/19 20:06 92 18 96 Room Air 21 06/16/19 20:05 92 18 96 Room Air 06/16/19 16:35 87 19 98 Room Air 21 06/16/19 16:26 85 21 95 Room Air 06/16/19 16:00 97.8 98 20 100/66 (77) 98 Intake and Output 06/16/19 06/17/19 18:59 06:59 Intake Total 880 ml Output Total 1200 ml 1850 ml Balance -320 ml -1850 ml Intake Oral 880 ml Output Urine Total 1200 ml 1850 ml # Voids 3 Laboratory Tests 06/17/19 05:45: White Blood Count 5.1, Red Blood Count 3.47L, Hemoglobin 10.5L, Hematocrit 32.0L , Mean Corpuscular Volume 92, Mean Corpuscular Hemoglobin 30.3, Mean Corpuscular Hemoglobin Concent 32.9, Red Cell Distribution Width 13.7, Platelet Count 194, Mean Platelet Volume 4.9L, Neutrophils (%) (Auto) 60.4, Lymphocytes ( %) (Auto) 23.4, Monocytes (%) (Auto) 10.1H, Eosinophils (%) (Auto) 4.9H, Basophils (%) (Auto) 1.3, Sodium Level 139, Potassium Level 3.8, Chloride Level 105, Carbon Dioxide Level 28, Anion Gap 6, Blood Urea Nitrogen 18, Creatinine 1.4H, Estimat Glomerular Filtration Rate 51.5, Glucose Level 93, Calcium Level 8.8 06/17/19 11:40: Troponin I 0.000 Height (Feet): 5 Height (Inches): 9.00 Weight (Pounds): 140 General Appearance: lethargic EENT: normal ENT inspection Neck: normal alignment Cardiovascular: normal peripheral pulses, normal rate, regular rhythm Respiratory/Chest: chest wall non-tender, lungs clear, normal breath sounds Abdomen: normal bowel sounds, non tender, soft Extremities: normal inspection Edema: no edema noted Arm (L), no edema noted Arm (R), no edema noted Leg (L), no edema noted Leg (R), no edema noted Pedal (L), no edema noted Pedal (R), no edema noted Generalized Neurologic: motor weakness Skin: normal pigmentation, warm/dry Mansoor Villafuerte DO Jun 17, 2019 12:36
--- NOTE | 2019-06-17 12:59 | Cardiac Electrophysiology PN ---
Assessment/Plan Assessment/Plan 1. Sinus tachycardia with any evidence of atrial fibrillation or supraventricular tachycardia. The patient is quite comfortable, is not anxious, and is not combative at this time. On Lopressor 25 bid HR 70s 2. Chest pain. Already ruled out for NV. Echo EF 45-50%. ECG normal 3. Hypertension. On metoprolol 25 bid 4. Hypothyroidism, on Synthroid. 5. Renal failure. Creatinine 1.7. Further evaluation by Nephrology. 6. Schizophrenia. 7. Benign prostatic hypertrophy, on Proscar. 8. Chronic obstructive pulmonary disease. DW RN Subjective Subjective Had recurrence of CP and now asking to go to tele floor. Objective Last 24 Hour Vital Signs Date Time Temp Pulse Resp B/P (MAP) Pulse Ox O2 Delivery O2 Flow Rate FiO2 06/17/19 12:00 98.5 76 18 125/83 (97) 98 06/17/19 09:00 Room Air 06/17/19 08:48 105 107/68 06/17/19 08:00 98.0 80 18 118/77 (91) 97 06/17/19 07:50 99 16 97 Room Air 21 06/17/19 05:57 97.9 06/16/19 20:16 Room Air 06/16/19 20:14 92 18 99 Room Air 21 06/16/19 20:09 83 110/72 06/16/19 20:07 97.9 83 18 110/72 (85) 95 06/16/19 20:06 92 18 96 Room Air 21 06/16/19 20:05 92 18 96 Room Air 21 06/16/19 16:35 87 19 98 Room Air 21 06/16/19 16:26 85 21 95 Room Air 06/16/19 16:00 97.8 98 20 100/66 (77) 98 Intake and Output 06/16/19 06/17/19 18:59 06:59 Intake Total 880 ml Output Total 1200 ml 1850 ml Balance -320 ml -1850 ml Intake Oral 880 ml Output Urine Total 1200 ml 1850 ml # Voids 3 Laboratory Tests Test 06/17/19 05:45 06/17/19 11:40 White Blood Count 5.1 K/UL (4.8-10.8) Red Blood Count 3.47 M/UL (4.70-6.10) L Hemoglobin 10.5 G/DL (14.2-18.0) L Hematocrit 32.0 % (42.0-52.0) L Mean Corpuscular Volume 92 FL (80-99) Mean Corpuscular Hemoglobin 30.3 PG (27.0-31.0) Mean Corpuscular Hemoglobin Concent 32.9 G/DL (32.0-36.0) Red Cell Distribution Width 13.7 % (11.6-14.8) Platelet Count 194 K/UL (150-450) Mean Platelet Volume 4.9 FL (6.5-10.1) L Neutrophils (%) (Auto) 60.4 % (45.0-75.0) Lymphocytes (%) (Auto) 23.4 % (20.0-45.0) Monocytes (%) (Auto) 10.1 % (1.0-10.0) H Eosinophils (%) (Auto) 4.9 % (0.0-3.0) H Basophils (%) (Auto) 1.3 % (0.0-2.0) Sodium Level 139 MMOL/L (136-145) Potassium Level 3.8 MMOL/L (3.5-5.1) Chloride Level 105 MMOL/L (98-107) Carbon Dioxide Level 28 MMOL/L (21-32) Anion Gap 6 mmol/L (5-15) Blood Urea Nitrogen 18 mg/dL (7-18) Creatinine 1.4 MG/DL (0.55-1.30) H Estimat Glomerular Filtration Rate 51.5 mL/min (>60) Glucose Level 93 MG/DL (74-106) Calcium Level 8.8 MG/DL (8.5-10.1) Troponin I 0.000 ng/mL (0.000-0.056) Microbiology Date/Time Source Procedure Growth Status 06/14/19 15:20 Blood Blood Culture - Preliminary NO GROWTH AFTER 48 HOURS Resulted 06/14/19 15:15 Blood Blood Culture - Preliminary NO GROWTH AFTER 48 HOURS Resulted Objective HEAD AND NECK: Showed no JVD. LUNGS: Clear. CARDIOVASCULAR: Shows tachycardic. S1 and S2 with no gallop or murmur. ABDOMEN: Soft and nontender. EXTREMITIES: No pitting edema. Ang Avendano MD Jun 17, 2019 12:59
--- NOTE | 2019-06-17 14:26 | Infectious Diseases Prog Note ---
Assessment/Plan Assessment/Plan Abx: Ceftriaxone x1 06/11 Assessment: Aggressive behavior Afebrile No leukocytosis Pyuria- Assymptomatic -u/a wbc tnct, nit +, leuk +3; ucx >100k PsA (cruz S), MRSA (S nitrofurantoin, bactrim, tetracycline, vanco); colonizers -2d Echo: no vegetatiosn -Bcx NTD schizophrenia COPD/asthma GERD BPH seizure disorder CKD hypothyroidism anxiety disorder [place] resident Plan: -Continue to monitor off abx unless febrile, leukocytosis or urinary symptoms -f/u cx -Monitor CBC/CMP, temperatures -f/u Bcx x2 Thank you for this consultation. Will continue to follow along with you. Discussed with RN. Subjective Allergies: Coded Allergies: CHLORPROMAZINE (Unverified Allergy, Unknown, 05/24/18) CLOZAPINE (Unverified Allergy, Unknown, 05/24/18) [place] (Unverified Allergy, Unknown, 06/12/19) FROM [facility] DIVALPROEX SODIUM (Unverified Allergy, Unknown, 05/24/18) FISH CONTAINING PRODUCTS (Unverified Allergy, Unknown, 06/12/19) FROM [facility] HALOPERIDOL (Unverified Allergy, Unknown, 05/24/18) ONION (Unverified Allergy, Unknown, 06/12/19) FROM [facility] PENICILLINS (Verified Allergy, Unknown, 06/11/19) SERTRALINE (Unverified Allergy, Unknown, 05/24/18) Uncoded Allergies: CLOZASIL (Allergy, Unknown, 07/23/18) ZUCCHINI (Allergy, Unknown, 06/12/19) FROM [facility] Subjective afebrile no leukocytosis Objective Vital Signs Last 24 Hour Vital Signs Date Time Temp Pulse Resp B/P (MAP) Pulse Ox O2 Delivery O2 Flow Rate FiO2 06/17/19 12:00 98.5 76 18 125/83 (97) 98 06/17/19 09:00 Room Air 06/17/19 08:48 105 107/68 06/17/19 08:00 98.0 80 18 118/77 (91) 97 06/17/19 07:50 99 16 97 Room Air 21 06/17/19 05:57 97.9 06/16/19 20:16 Room Air 06/16/19 20:14 92 18 99 Room Air 21 06/16/19 20:09 83 110/72 06/16/19 20:07 97.9 83 18 110/72 (85) 95 06/16/19 20:06 92 18 96 Room Air 21 06/16/19 20:05 92 18 96 Room Air 21 06/16/19 16:35 87 19 98 Room Air 21 06/16/19 16:26 85 21 95 Room Air 21 06/16/19 16:00 97.8 98 20 100/66 (77) 98 Height (Feet): 5 Height (Inches): 9.00 Weight (Pounds): 140 Objective General Appearance: WD/WN Lines, tubes and drains: peripheral HEENT: normocephalic, atraumatic Neck: non-tender, normal alignment Respiratory/Chest: chest wall non-tender, lungs clear Breasts: no masses Cardiovascular/Chest: normal peripheral pulses Abdomen: normal bowel sounds Extremities: normal range of motion Microbiology Date/Time Source Procedure Growth Status 06/14/19 15:20 Blood Blood Culture - Preliminary NO GROWTH AFTER 48 HOURS Resulted 06/14/19 15:15 Blood Blood Culture - Preliminary NO GROWTH AFTER 48 HOURS Resulted Laboratory Tests Test 06/17/19 05:45 06/17/19 11:40 White Blood Count 5.1 K/UL (4.8-10.8) Red Blood Count 3.47 M/UL (4.70-6.10) L Hemoglobin 10.5 G/DL (14.2-18.0) L Hematocrit 32.0 % (42.0-52.0) L Mean Corpuscular Volume 92 FL (80-99) Mean Corpuscular Hemoglobin 30.3 PG (27.0-31.0) Mean Corpuscular Hemoglobin Concent 32.9 G/DL (32.0-36.0) Red Cell Distribution Width 13.7 % (11.6-14.8) Platelet Count 194 K/UL (150-450) Mean Platelet Volume 4.9 FL (6.5-10.1) L Neutrophils (%) (Auto) 60.4 % (45.0-75.0) Lymphocytes (%) (Auto) 23.4 % (20.0-45.0) Monocytes (%) (Auto) 10.1 % (1.0-10.0) H Eosinophils (%) (Auto) 4.9 % (0.0-3.0) H Basophils (%) (Auto) 1.3 % (0.0-2.0) Sodium Level 139 MMOL/L (136-145) Potassium Level 3.8 MMOL/L (3.5-5.1) Chloride Level 105 MMOL/L (98-107) Carbon Dioxide Level 28 MMOL/L (21-32) Anion Gap 6 mmol/L (5-15) Blood Urea Nitrogen 18 mg/dL (7-18) Creatinine 1.4 MG/DL (0.55-1.30) H Estimat Glomerular Filtration Rate 51.5 mL/min (>60) Glucose Level 93 MG/DL (74-106) Calcium Level 8.8 MG/DL (8.5-10.1) Troponin I 0.000 ng/mL (0.000-0.056) Current Medications Medications (Trade) Dose Ordered Sig/Cori Route PRN Reason Start Time Stop Time Status Last Admin Dose Admin Acetaminophen (Tylenol) 650 mg Q4H PRN ORAL fever (temp>100.5F) 06/14/19 20:30 07/14/19 16:20 Acetaminophen/ Hydrocodone Bitart ([place] 5/325) 1 tab Q4H PRN ORAL Moderate Pain (Pain Scale 4-6) 06/14/19 21:00 06/21/19 20:59 06/17/19 05:23 Al Hydroxide/Mg Hydroxide (Mylanta) 30 ml Q6H PRN ORAL Abdominal cramps 06/14/19 19:00 07/14/19 18:59 06/17/19 10:09 Albuterol/ Ipratropium (Albuterol/ Ipratropium) 3 ml Q4H PRN HHN Shortness of Breath 06/14/19 19:00 06/19/19 18:59 06/16/19 20:05 Atorvastatin Calcium (Lipitor) 10 mg BEDTIME ORAL 06/15/19 21:00 07/15/19 20:59 06/16/19 20:09 Clonazepam (KlonoPIN) 2 mg Q6H PRN ORAL For Anxiety 06/14/19 19:00 06/21/19 18:59 06/17/19 08:49 Dextrose (Dextrose 50%) 25 ml Q30M PRN IV Hypoglycemia 06/14/19 18:15 07/11/19 08:44 Dextrose (Dextrose 50%) 50 ml Q30M PRN IV Hypoglycemia 06/14/19 18:15 07/11/19 08:44 Finasteride (Proscar) 5 mg DAILY ORAL 06/15/19 09:00 07/11/19 08:59 06/17/19 08:46 Levothyroxine Sodium (Synthroid) 100 mcg Q24H ORAL 06/15/19 06:30 07/15/19 06:29 06/17/19 05:22 Lorazepam (Ativan 2mg/ml 1ml) 0.5 mg Q4H PRN IV For Anxiety 06/14/19 19:00 06/21/19 18:59 Metoprolol Tartrate (Lopressor) 25 mg Q12HR ORAL 06/14/19 21:00 07/14/19 20:59 06/17/19 08:48 Morphine Sulfate (Morphine Sulfate) 1 mg Q4H PRN IVP SEVERE PAIN (7-10) 06/14/19 20:45 06/18/19 08:44 06/17/19 08:51 Olanzapine (ZyPREXA) 10 mg BID ORAL 06/15/19 09:00 07/15/19 08:59 06/17/19 08:49 Ondansetron HCl (Zofran) 4 mg Q6H PRN IVP Nausea & Vomiting 06/14/19 19:00 07/14/19 18:59 Polyethylene Glycol (Miralax) 17 gm DAILYPRN PRN ORAL Constipation 06/15/19 12:00 07/14/19 19:59 Tamsulosin HCl (Flomax) 0.4 mg BID ORAL 06/15/19 09:00 07/15/19 08:59 06/17/19 08:49 Zolpidem Tartrate (Ambien) 5 mg HSPRN PRN ORAL Insomnia 06/15/19 20:00 06/21/19 19:59 Cha Underwood M.D. Jun 17, 2019 14:26
--- NOTE | 2019-06-17 15:55 | Hematology/Onc Progress Note ---
Assessment/Plan Assessment/Plan Assessment/Recs: # Anemia of iron deficiency (based on prior workup, ferritin was <20), hgb has been downtrending --> r/o iron deficiency and other causes, w/u has been working --> at this time, ferritin is 133, basically is wnl, does not require iron therapy --> r/u underling hemolysis, bili is wnl at this time --> peripheral smear shows no schistocytes --> esr is high at this time --> hgb 11.2-->10.7-->10.5 # Pyuria asymptomatic --> seen by id --> consider abx as per id, is currently off # Aggressive behavior --> per psych management # COPD/asthma --> breathing treatment on prn basis # GERD --> continue on ppi prn # BPH # Seizure disorder # Hypothyroidism # Anxiety disorder # [facility] resident The timing of this note does not necessarily reflect the time of the patient was seen. GREATLY APPRECIATE CONSULTATION. Subjective Constitutional: Denies: no symptoms, chills, fever, malaise, weakness, other Cardiovascular: Denies: no symptoms, chest pain, edema, irregular heart rate, lightheadedness, palpitations, syncope, other Respiratory: Denies: no symptoms, cough, shortness of breath, SOB with excertion, SOB at rest, sputum, wheezing, other Gastrointestinal/Abdominal: Denies: no symptoms, abdomen distended, abdominal pain, black stools, tarry stools, blood in stool, constipated, diarrhea, difficulty swallowing, nausea, poor appetite, poor fluid intake, rectal bleeding , vomiting, other Endocrine: Denies: no symptoms, excessive sweating, flushing, intolerance to cold, intolerance to heat, increased hunger, increased thirst, increased urine, unexplained weight gain, unexplained weight loss, other Hematologic/Lymphatic: Denies: no symptoms, anemia, easy bleeding, easy bruising, adenopathy, other Allergies: Coded Allergies: CHLORPROMAZINE (Unverified Allergy, Unknown, 05/24/18) CLOZAPINE (Unverified Allergy, Unknown, 05/24/18) [place] (Unverified Allergy, Unknown, 06/12/19) FROM [facility] DIVALPROEX SODIUM (Unverified Allergy, Unknown, 05/24/18) FISH CONTAINING PRODUCTS (Unverified Allergy, Unknown, 06/12/19) FROM [facility] HALOPERIDOL (Unverified Allergy, Unknown, 05/24/18) ONION (Unverified Allergy, Unknown, 06/12/19) FROM [facility] PENICILLINS (Verified Allergy, Unknown, 06/11/19) SERTRALINE (Unverified Allergy, Unknown, 05/24/18) Uncoded Allergies: CLOZASIL (Allergy, Unknown, 07/23/18) ZUCCHINI (Allergy, Unknown, 06/12/19) FROM [facility] Subjective 06/13: no events overnight, on abx, says doesn't want to go back to [facility] , ferritin ordered 06/14: no fevers or chills noted, no bleeding, transfer pending 06/16: a+o x4, no f/c, no night sweats, labs reviewed, psych transfer potentially 06/17: resting in bed, iv site clean and dry, no f/c noted, no bleeding Objective Objective Current Medications Medications (Trade) Dose Ordered Sig/Cori Route PRN Reason Start Time Stop Time Status Last Admin Dose Admin Acetaminophen (Tylenol) 650 mg Q4H PRN ORAL fever (temp>100.5F) 06/14/19 20:30 07/14/19 16:20 Acetaminophen/ Hydrocodone Bitart ([place] 5/325) 1 tab Q4H PRN ORAL Moderate Pain (Pain Scale 4-6) 06/14/19 21:00 06/21/19 20:59 06/17/19 05:23 Al Hydroxide/Mg Hydroxide (Mylanta) 30 ml Q6H PRN ORAL Abdominal cramps 06/14/19 19:00 07/14/19 18:59 06/17/19 10:09 Albuterol/ Ipratropium (Albuterol/ Ipratropium) 3 ml Q4H PRN HHN Shortness of Breath 06/14/19 19:00 06/19/19 18:59 06/16/19 20:05 Atorvastatin Calcium (Lipitor) 10 mg BEDTIME ORAL 06/15/19 21:00 07/15/19 20:59 06/16/19 20:09 Clonazepam (KlonoPIN) 2 mg Q6H PRN ORAL For Anxiety 06/14/19 19:00 06/21/19 18:59 06/17/19 08:49 Dextrose (Dextrose 50%) 25 ml Q30M PRN IV Hypoglycemia 06/14/19 18:15 07/11/19 08:44 Dextrose (Dextrose 50%) 50 ml Q30M PRN IV Hypoglycemia 06/14/19 18:15 07/11/19 08:44 Finasteride (Proscar) 5 mg DAILY ORAL 06/15/19 09:00 07/11/19 08:59 06/17/19 08:46 Levothyroxine Sodium (Synthroid) 100 mcg Q24H ORAL 06/15/19 06:30 07/15/19 06:29 06/17/19 05:22 Lorazepam (Ativan 2mg/ml 1ml) 0.5 mg Q4H PRN IV For Anxiety 06/14/19 19:00 06/21/19 18:59 Metoprolol Tartrate (Lopressor) 25 mg Q12HR ORAL 06/14/19 21:00 07/14/19 20:59 06/17/19 08:48 Morphine Sulfate (Morphine Sulfate) 1 mg Q4H PRN IVP SEVERE PAIN (7-10) 06/14/19 20:45 06/18/19 08:44 06/17/19 08:51 Olanzapine (ZyPREXA) 10 mg BID ORAL 06/15/19 09:00 07/15/19 08:59 06/17/19 08:49 Ondansetron HCl (Zofran) 4 mg Q6H PRN IVP Nausea & Vomiting 06/14/19 19:00 07/14/19 18:59 Polyethylene Glycol (Miralax) 17 gm DAILYPRN PRN ORAL Constipation 06/15/19 12:00 07/14/19 19:59 Tamsulosin HCl (Flomax) 0.4 mg BID ORAL 06/15/19 09:00 07/15/19 08:59 06/17/19 08:49 Zolpidem Tartrate (Ambien) 5 mg HSPRN PRN ORAL Insomnia 06/15/19 20:00 06/21/19 19:59 Last 24 Hour Vital Signs Date Time Temp Pulse Resp B/P (MAP) Pulse Ox O2 Delivery O2 Flow Rate FiO2 06/17/19 12:00 98.5 76 18 125/83 (97) 98 06/17/19 09:00 Room Air 06/17/19 08:48 105 107/68 06/17/19 08:00 98.0 80 18 118/77 (91) 97 06/17/19 07:50 99 16 97 Room Air 06/17/19 05:57 97.9 06/16/19 20:16 Room Air 06/16/19 20:14 92 18 99 Room Air 06/16/19 20:09 83 110/72 06/16/19 20:07 97.9 83 18 110/72 (85) 95 06/16/19 20:06 92 18 96 Room Air 06/16/19 20:05 92 18 96 Room Air 06/16/19 16:35 87 19 98 Room Air 06/16/19 16:26 85 21 95 Room Air 06/16/19 16:00 97.8 98 20 100/66 (77) 98 06/16/19 12:00 98.3 85 17 92/60 (71) 95 06/16/19 10:30 75 20 96 Room Air 06/16/19 09:00 Room Air 06/16/19 08:26 99 98/64 06/16/19 08:21 97.0 99 19 98/64 (75) 97 06/16/19 08:03 83 18 98 Room Air 06/15/19 21:00 83 97/62 06/15/19 20:02 Room Air 06/15/19 19:58 98.0 83 18 97/62 (74) 100 06/15/19 19:51 92 18 99 Room Air 06/15/19 19:41 85 18 95 Room Air 06/15/19 19:40 86 18 95 Room Air 06/15/19 17:51 88 110/65 (80) 06/15/19 16:00 98.2 80 17 94/54 (67) 98 Intake and Output 06/16/19 06/17/19 19:00 07:00 Intake Total 880 ml Output Total 1200 ml 1850 ml Balance -320 ml -1850 ml Intake Oral 880 ml Output Urine Total 1200 ml 1850 ml # Voids 3 Labs Test 06/15/19 06:20 06/16/19 06:05 06/17/19 05:45 06/17/19 11:40 Troponin I 0.002 ng/mL (0.000-0.056) 0.000 ng/mL (0.000-0.056) Pro-B-Type Natriuretic Peptide 38 pg/mL (0-125) Thyroid Stimulating Hormone (TSH) 1.861 uiU/mL (0.358-3.740) Free Thyroxine 0.96 NG/DL (0.76-1.46) White Blood Count 6.2 K/UL (4.8-10.8) 5.1 K/UL (4.8-10.8) Red Blood Count 3.53 M/UL (4.70-6.10) 3.47 M/UL (4.70-6.10) Hemoglobin 10.7 G/DL (14.2-18.0) 10.5 G/DL (14.2-18.0) Hematocrit 32.8 % (42.0-52.0) 32.0 % (42.0-52.0) Mean Corpuscular Volume 93 FL (80-99) 92 FL (80-99) Mean Corpuscular Hemoglobin 30.5 PG (27.0-31.0) 30.3 PG (27.0-31.0) Mean Corpuscular Hemoglobin Concent 32.8 G/DL (32.0-36.0) 32.9 G/DL (32.0-36.0) Red Cell Distribution Width 14.0 % (11.6-14.8) 13.7 % (11.6-14.8) Platelet Count 194 K/UL (150-450) 194 K/UL (150-450) Mean Platelet Volume 5.3 FL (6.5-10.1) 4.9 FL (6.5-10.1) Neutrophils (%) (Auto) 69.5 % (45.0-75.0) 60.4 % (45.0-75.0) Lymphocytes (%) (Auto) 16.4 % (20.0-45.0) 23.4 % (20.0-45.0) Monocytes (%) (Auto) 8.1 % (1.0-10.0) 10.1 % (1.0-10.0) Eosinophils (%) (Auto) 5.1 % (0.0-3.0) 4.9 % (0.0-3.0) Basophils (%) (Auto) 0.9 % (0.0-2.0) 1.3 % (0.0-2.0) Sodium Level 144 MMOL/L (136-145) 139 MMOL/L (136-145) Potassium Level 4.4 MMOL/L (3.5-5.1) 3.8 MMOL/L (3.5-5.1) Chloride Level 110 MMOL/L (98-107) 105 MMOL/L (98-107) Carbon Dioxide Level 27 MMOL/L (21-32) 28 MMOL/L (21-32) Anion Gap 7 mmol/L (5-15) 6 mmol/L (5-15) Blood Urea Nitrogen 21 mg/dL (7-18) 18 mg/dL (7-18) Creatinine 1.6 MG/DL (0.55-1.30) 1.4 MG/DL (0.55-1.30) Estimat Glomerular Filtration Rate 44.2 mL/min (>60) 51.5 mL/min (>60) Glucose Level 95 MG/DL (74-106) 93 MG/DL (74-106) Calcium Level 8.9 MG/DL (8.5-10.1) 8.8 MG/DL (8.5-10.1) Height (Feet): 5 Height (Inches): 9.00 Weight (Pounds): 140 Objective Gen: NAD, A+O x3 Pulm: Ctab, no cwr CV: RRR, no mgr Abd: soft, nt, nd Ext: no cce Neuro: grossly intact, cn II-XII intact Ba Manriquez MD Jun 17, 2019 15:55
[2019-06-17 16:00] VITALS: BP 122/79
[2019-06-17] MEDS: Albuterol/Ipratropium 3ml neb HHN PRN (18:48)
--- NOTE | 2019-06-17 19:45 | NUR ---
CASE MANAGEMENT: REVIEW SI: ANEMIA OF IRON DEFICIENCY . SEIZURE DISORDER . BPH T 98.5 HR 101 RR 20 BP 122/79 SAT 95% ROOM AIR H/H 10.5/32.0 CR 1.4 IS: LIPITOR PO QHS FLOMAX PO BID LOPRESSOR PO Q12HR MED/SURG STATUS DCP: PATIENT IS FROM [facility]
[2019-06-17 19:58] VITALS: BP 118/81
[2019-06-17] MEDS: Zolpidem 5mg tab ORAL PRN (20:03)
--- NOTE | 2019-06-17 20:05 | NUR ---
HAND-OFF: Report given to KAROLINE CASTELLANOS.
--- NOTE | 2019-06-17 20:16 | NUR ---
NURSE NOTES: Received patient awake, alert, verbal, resting in bed, comfortable. Patient refused IV reinsertion. He said "I don't need it".
--- NOTE | 2019-06-17 20:46 | Pulmonology Progress Note ---
Assessment/Plan Problems: (1) Tachycardia (2) Acute encephalopathy (3) Agitation (4) COPD (chronic obstructive pulmonary disease) (5) Hypothyroidism (6) Anemia (7) Psychosis Assessment/Plan telemetry monitoring in better mood f/u psych recommendations anemia w/u in progress respiratory treatment titrate fio2 to sat of 92% f/u cardiology recommendations Subjective Allergies: Coded Allergies: CHLORPROMAZINE (Unverified Allergy, Unknown, 05/24/18) CLOZAPINE (Unverified Allergy, Unknown, 05/24/18) [place] (Unverified Allergy, Unknown, 06/12/19) FROM [facility] DIVALPROEX SODIUM (Unverified Allergy, Unknown, 05/24/18) FISH CONTAINING PRODUCTS (Unverified Allergy, Unknown, 06/12/19) FROM [facility] HALOPERIDOL (Unverified Allergy, Unknown, 05/24/18) ONION (Unverified Allergy, Unknown, 06/12/19) FROM [facility] PENICILLINS (Verified Allergy, Unknown, 06/11/19) SERTRALINE (Unverified Allergy, Unknown, 05/24/18) Uncoded Allergies: CLOZASIL (Allergy, Unknown, 07/23/18) ZUCCHINI (Allergy, Unknown, 06/12/19) FROM [facility] Objective Last 24 Hour Vital Signs Date Time Temp Pulse Resp B/P (MAP) Pulse Ox O2 Delivery O2 Flow Rate FiO2 06/17/19 20:19 Room Air 06/17/19 20:04 101 118/81 06/17/19 19:58 98.0 101 20 118/81 (93) 100 06/17/19 19:52 98.3 06/17/19 18:50 103 18 96 Room Air 21 06/17/19 18:47 101 20 93 Room Air 21 06/17/19 18:40 101 20 93 Room Air 21 06/17/19 16:00 98.3 70 18 122/79 (93) 95 06/17/19 12:00 98.5 76 18 125/83 (97) 98 06/17/19 09:00 Room Air 06/17/19 08:48 105 107/68 06/17/19 08:00 98.0 80 18 118/77 (91) 97 06/17/19 07:50 99 16 97 Room Air 21 Intake and Output 06/16/19 06/17/19 19:00 07:00 Intake Total 880 ml Output Total 1200 ml 1850 ml Balance -320 ml -1850 ml Intake Oral 880 ml Output Urine Total 1200 ml 1850 ml # Voids 3 Laboratory Tests 06/17/19 05:45: White Blood Count 5.1, Red Blood Count 3.47L, Hemoglobin 10.5L, Hematocrit 32.0L , Mean Corpuscular Volume 92, Mean Corpuscular Hemoglobin 30.3, Mean Corpuscular Hemoglobin Concent 32.9, Red Cell Distribution Width 13.7, Platelet Count 194, Mean Platelet Volume 4.9L, Neutrophils (%) (Auto) 60.4, Lymphocytes ( %) (Auto) 23.4, Monocytes (%) (Auto) 10.1H, Eosinophils (%) (Auto) 4.9H, Basophils (%) (Auto) 1.3, Sodium Level 139, Potassium Level 3.8, Chloride Level 105, Carbon Dioxide Level 28, Anion Gap 6, Blood Urea Nitrogen 18, Creatinine 1.4H, Estimat Glomerular Filtration Rate 51.5, Glucose Level 93, Calcium Level 8.8 06/17/19 11:40: Troponin I 0.000 Current Medications Medications (Trade) Dose Ordered Sig/Cori Route PRN Reason Start Time Stop Time Status Last Admin Dose Admin Acetaminophen (Tylenol) 650 mg Q4H PRN ORAL fever (temp>100.5F) 06/14/19 20:30 07/14/19 16:20 Acetaminophen/ Hydrocodone Bitart ([place] 5/325) 1 tab Q4H PRN ORAL Moderate Pain (Pain Scale 4-6) 06/14/19 21:00 06/21/19 20:59 06/17/19 13:58 Al Hydroxide/Mg Hydroxide (Mylanta) 30 ml Q6H PRN ORAL Abdominal cramps 06/14/19 19:00 07/14/19 18:59 06/17/19 20:13 Albuterol/ Ipratropium (Albuterol/ Ipratropium) 3 ml Q4H PRN HHN Shortness of Breath 06/14/19 19:00 06/19/19 18:59 06/17/19 18:48 Atorvastatin Calcium (Lipitor) 10 mg BEDTIME ORAL 06/15/19 21:00 07/15/19 20:59 06/17/19 20:03 Clonazepam (KlonoPIN) 2 mg Q6H PRN ORAL For Anxiety 06/14/19 19:00 06/21/19 18:59 06/17/19 17:02 Dextrose (Dextrose 50%) 25 ml Q30M PRN IV Hypoglycemia 06/14/19 18:15 07/11/19 08:44 Dextrose (Dextrose 50%) 50 ml Q30M PRN IV Hypoglycemia 06/14/19 18:15 07/11/19 08:44 Finasteride (Proscar) 5 mg DAILY ORAL 06/15/19 09:00 07/11/19 08:59 06/17/19 08:46 Levothyroxine Sodium (Synthroid) 100 mcg Q24H ORAL 06/15/19 06:30 07/15/19 06:29 06/17/19 05:22 Lorazepam (Ativan 2mg/ml 1ml) 0.5 mg Q4H PRN IV For Anxiety 06/14/19 19:00 06/21/19 18:59 Metoprolol Tartrate (Lopressor) 25 mg Q12HR ORAL 06/14/19 21:00 07/14/19 20:59 06/17/19 20:04 Morphine Sulfate (Morphine Sulfate) 1 mg Q4H PRN IVP SEVERE PAIN (7-10) 06/14/19 20:45 06/18/19 08:44 06/17/19 08:51 Olanzapine (ZyPREXA) 10 mg BID ORAL 06/15/19 09:00 07/15/19 08:59 06/17/19 17:02 Ondansetron HCl (Zofran) 4 mg Q6H PRN IVP Nausea & Vomiting 06/14/19 19:00 07/14/19 18:59 Polyethylene Glycol (Miralax) 17 gm DAILYPRN PRN ORAL Constipation 06/15/19 12:00 07/14/19 19:59 Tamsulosin HCl (Flomax) 0.4 mg BID ORAL 06/15/19 09:00 07/15/19 08:59 06/17/19 17:02 Zolpidem Tartrate (Ambien) 5 mg HSPRN PRN ORAL Insomnia 06/15/19 20:00 06/21/19 19:59 06/17/19 20:03 Murali Allen MD Jun 17, 2019 20:46
--- NOTE | 2019-06-17 22:45 | Progress Note ---
DATE: 06/17/2019 SUBJECTIVE: This is a 63-year-old male, very agitated, irritable, and confused. Still mood labile, responding to internal stimuli. MENTAL STATUS EXAMINATION: This is a 63-year-old male. Appearance is disheveled. Attitude, irritable and agitated. Affect, guarded and restricted. Intellect, poor. Mood, depressed and anxious. Motor activity, psychomotor agitation. Insight and judgment is poor. DIAGNOSIS: Paranoid schizophrenia. PLAN: Treat him with Zyprexa 10 mg twice a day. Provide him with 20 minutes of cognitive behavioral therapy to help him identify his automatic negative thoughts and help him convert those negative thoughts to more positive thoughts to reduce depression, anxiety, and mood lability. Chart reviewed. Discussed with staff. Seen and assessed at bedside. Shantanu Way M.D. DR: ТАТЬЯНА JOB#: [id number] CC:
--- NOTE | 2019-06-17 23:48 | NUR ---
HAND-OFF: Report given to Debbi Vega RN.
--- NOTE | 2019-06-18 00:03 | NUR ---
NURSE NOTES: RECEIVED PT FROM KAROLINE DONOVAN. PT IS ASLEEP, ON ROOM AIR, NO ACUTE DISTRESS NOTED. PT STATES THAT HE DOES NOT WANT TO BE DISTURBED ANYMORE. NO IV ACCESS NOTED, PATIENT REFUSED REINSERTION. BED IS LOCKED AT THE LOWEST POSITION, BED ALARMS ACTIVE, SIDE RAILS UP X2, AND CALL LIGHT IS WITHIN REACH. WILL CONTINUE TO MONITOR.
[2019-06-18] MEDS: HYDROcodone/Acetamin 5/325 tab ORAL PRN ×4 (06:31→20:39)
--- NOTE | 2019-06-18 07:37 | NUR ---
HAND-OFF: Report given to KAROLINE IRVING.
--- NOTE | 2019-06-18 07:40 | NUR ---
NURSE NOTES: Received patient in bed,AAOx3. not in respiratory/cardiac distress. No IV per scene shifter and patient refused IV insertion. Explained the risks and benefits. Ramirez is draining well to gravity, no blood or sediment. Bed is in lowest position and locked. Call light and personnel items within reach. Will continue plan of care.
[2019-06-18 08:00] VITALS: BP 101/62
[2019-06-18 08:02] LABS: BASOPHILS % (AUTO) 1.4 % (0.0-2.0); EOSINOPHILS % (AUTO) 5.4 % (0.0-3.0); HEMATOCRIT 35.4 % (42.0-52.0); HEMOGLOBIN 11.6 G/DL (14.2-18.0); MEAN CORPUSCULAR VOLUME 92 FL (80-99); MONOCYTES % (AUTO) 7.5 % (1.0-10.0); NEUTROPHILS % (AUTO) 64.7 % (45.0-75.0); PLATELET COUNT 249 K/UL (150-450); RED BLOOD COUNT 3.83 M/UL (4.70-6.10); RED CELL DISTRIBUTION WIDTH 14.2 % (11.6-14.8); WHITE BLOOD COUNT 6.4 K/UL (4.8-10.8)
[2019-06-18] MEDS: Metoprolol 25mg tab ORAL SCH ×2 (08:06→20:35)
[2019-06-18] MEDS: Tamsulosin 0.4mg cap ORAL SCH ×2 (08:06→18:02)
[2019-06-18] MEDS: OLANZapine 10mg tab ORAL SCH ×2 (08:06→18:02)
[2019-06-18 08:13] LABS: ANION GAP 9 mmol/L (5-15); BLOOD UREA NITROGEN 16 mg/dL (7-18); CALCIUM 9.3 MG/DL (8.5-10.1); CARBON DIOXIDE 25 MMOL/L (21-32); CHLORIDE 106 MMOL/L (98-107); CREATININE 1.6 MG/DL (0.55-1.30); POTASSIUM 4.1 MMOL/L (3.5-5.1); SODIUM 140 MMOL/L (136-145)
[2019-06-18] MEDS: Albuterol/Ipratropium 3ml neb HHN PRN ×3 (08:39→22:39)
--- NOTE | 2019-06-18 10:55 | NUR ---
NURSE NOTES: Patient complaining of back ,neck pain, he says it is chronic, but denies chest pain or SOB and o2sat is 98-99% in room air and asking for pain medication norco 5/325 PRN.Patient's blood pressure is 98/67 and pulse is 99. RN contacted Dr. Avendano and asked if norco can be given. Dr. Avendano said yes. Given norco 5/325mg. Reminded patient to call nurses if needed and when he get up slowly. Call light within reach, bed alarm is on and close monitoring.
[2019-06-18 11:00] VITALS: BP 98/67
--- NOTE | 2019-06-18 11:17 | NUR ---
Social Work This Sw contacted intake @ [facility] and faxed chart information to come an re-evaluate/PET team for hold/transfer to inpatient Psych. Pending eval. SW to follow.
--- NOTE | 2019-06-18 11:20 | NUR ---
NURSE NOTES: Patient seen by Dr. Avendano.Per Dr. Avendano patient is medically clear to be discharged.
--- NOTE | 2019-06-18 11:25 | Cardiac Electrophysiology PN ---
Assessment/Plan Assessment/Plan 1. Sinus tachycardia with any evidence of atrial fibrillation or supraventricular tachycardia. On Lopressor 25 bid HR 70s. On Albuterol that can precipitate sinus tach 2. Chest pain. Already ruled out for GA. Echo EF 45-50%. ECG normal 3. Hypertension. On metoprolol 25 bid 4. Hypothyroidism, on Synthroid. 5. Renal failure. Creatinine 1.6. Further evaluation by Nephrology. 6. Schizophrenia. 7. Benign prostatic hypertrophy, on Proscar. 8. Chronic obstructive pulmonary disease. SEBLE RN OK to DC from cardiac stand point Subjective Subjective No CP or SOB. BP was 98/67 that got better without any intervention. Refused iv. Objective Last 24 Hour Vital Signs Date Time Temp Pulse Resp B/P (MAP) Pulse Ox O2 Delivery O2 Flow Rate FiO2 06/18/19 11:00 98.1 99 19 98/67 (77) 96 06/18/19 09:00 Room Air 06/18/19 08:50 97 18 97 Room Air 06/18/19 08:36 100 18 95 Room Air 21 06/18/19 08:36 100 18 95 Room Air 21 06/18/19 08:06 94 101/62 06/18/19 08:00 98.3 96 19 101/62 (75) 95 06/17/19 20:19 Room Air 06/17/19 20:04 101 118/81 06/17/19 19:58 98.0 101 20 118/81 (93) 100 06/17/19 19:52 98.3 06/17/19 18:50 103 18 96 Room Air 06/17/19 18:47 101 20 93 Room Air 21 06/17/19 18:40 101 20 93 Room Air 21 06/17/19 16:00 98.3 70 18 122/79 (93) 95 06/17/19 12:00 98.5 76 18 125/83 (97) 98 Intake and Output 06/17/19 06/18/19 19:00 07:00 Intake Total 400 ml Output Total 1300 ml 700 ml Balance -900 ml -700 ml Intake Oral 400 ml Output Urine Total 1300 ml 700 ml Laboratory Tests Test 06/17/19 11:40 06/18/19 07:37 Troponin I 0.000 ng/mL (0.000-0.056) White Blood Count 6.4 K/UL (4.8-10.8) Red Blood Count 3.83 M/UL (4.70-6.10) L Hemoglobin 11.6 G/DL (14.2-18.0) L Hematocrit 35.4 % (42.0-52.0) L Mean Corpuscular Volume 92 FL (80-99) Mean Corpuscular Hemoglobin 30.1 PG (27.0-31.0) Mean Corpuscular Hemoglobin Concent 32.6 G/DL (32.0-36.0) Red Cell Distribution Width 14.2 % (11.6-14.8) Platelet Count 249 K/UL (150-450) Mean Platelet Volume 4.8 FL (6.5-10.1) L Neutrophils (%) (Auto) 64.7 % (45.0-75.0) Lymphocytes (%) (Auto) 21.0 % (20.0-45.0) Monocytes (%) (Auto) 7.5 % (1.0-10.0) Eosinophils (%) (Auto) 5.4 % (0.0-3.0) H Basophils (%) (Auto) 1.4 % (0.0-2.0) Sodium Level 140 MMOL/L (136-145) Potassium Level 4.1 MMOL/L (3.5-5.1) Chloride Level 106 MMOL/L (98-107) Carbon Dioxide Level 25 MMOL/L (21-32) Anion Gap 9 mmol/L (5-15) Blood Urea Nitrogen 16 mg/dL (7-18) Creatinine 1.6 MG/DL (0.55-1.30) H Estimat Glomerular Filtration Rate 44.2 mL/min (>60) Glucose Level 131 MG/DL (74-106) H Calcium Level 9.3 MG/DL (8.5-10.1) Objective HEAD AND NECK: Showed no JVD. LUNGS: Clear. CARDIOVASCULAR: Shows tachycardic. S1 and S2 with no gallop or murmur. ABDOMEN: Soft and nontender. EXTREMITIES: No pitting edema. Ang Avendano MD Jun 18, 2019 11:25
[2019-06-18 11:54] VITALS: BP 105/69
--- NOTE | 2019-06-18 12:53 | General Progress Note ---
Assessment/Plan Problem List: (1) UTI (urinary tract infection) ICD Codes: N39.0 - Urinary tract infection, site not specified SNOMED: 78824219 Qualifiers: Qualified Codes: N30.00 - Acute cystitis without hematuria (2) COPD exacerbation ICD Codes: J44.1 - Chronic obstructive pulmonary disease with (acute) exacerbation SNOMED: 463336457 (3) ATN (acute tubular necrosis) ICD Codes: N17.0 - Acute kidney failure with tubular necrosis SNOMED: 43660004 (4) Asthma ICD Codes: J45.909 - Unspecified asthma, uncomplicated SNOMED: 975673107 (5) Agitation ICD Codes: R45.1 - Restlessness and agitation SNOMED: 007088137 Status: stable, progressing Assessment/Plan: pt diet abx cardio f/u cbc bmp am psyc transfer w dr rivera Subjective Constitutional: Reports: weakness Allergies: Coded Allergies: CHLORPROMAZINE (Unverified Allergy, Unknown, 05/24/18) CLOZAPINE (Unverified Allergy, Unknown, 05/24/18) [place] (Unverified Allergy, Unknown, 06/12/19) FROM [facility] DIVALPROEX SODIUM (Unverified Allergy, Unknown, 05/24/18) FISH CONTAINING PRODUCTS (Unverified Allergy, Unknown, 06/12/19) FROM [facility] HALOPERIDOL (Unverified Allergy, Unknown, 05/24/18) ONION (Unverified Allergy, Unknown, 06/12/19) FROM [facility] PENICILLINS (Verified Allergy, Unknown, 06/11/19) SERTRALINE (Unverified Allergy, Unknown, 05/24/18) Uncoded Allergies: CLOZASIL (Allergy, Unknown, 07/23/18) ZUCCHINI (Allergy, Unknown, 06/12/19) FROM [facility] All Systems: reviewed and negative except above Subjective sleepy calm Objective Last 24 Hour Vital Signs Date Time Temp Pulse Resp B/P (MAP) Pulse Ox O2 Delivery O2 Flow Rate FiO2 06/18/19 11:54 98.5 90 18 105/69 (81) 95 06/18/19 11:00 98.1 99 19 98/67 (77) 96 06/18/19 09:00 Room Air 06/18/19 08:50 97 18 97 Room Air 21 06/18/19 08:36 100 18 95 Room Air 21 06/18/19 08:36 100 18 95 Room Air 21 06/18/19 08:06 94 101/62 06/18/19 08:00 98.3 96 19 101/62 (75) 95 06/17/19 20:19 Room Air 06/17/19 20:04 101 118/81 06/17/19 19:58 98.0 101 20 118/81 (93) 100 06/17/19 19:52 98.3 06/17/19 18:50 103 18 96 Room Air 21 06/17/19 18:47 101 20 93 Room Air 21 06/17/19 18:40 101 20 93 Room Air 21 06/17/19 16:00 98.3 70 18 122/79 (93) 95 Intake and Output 06/17/19 06/18/19 18:59 06:59 Intake Total 400 ml Output Total 1300 ml 700 ml Balance -900 ml -700 ml Intake Oral 400 ml Output Urine Total 1300 ml 700 ml Laboratory Tests 06/18/19 07:37: White Blood Count 6.4, Red Blood Count 3.83L, Hemoglobin 11.6L, Hematocrit 35.4L , Mean Corpuscular Volume 92, Mean Corpuscular Hemoglobin 30.1, Mean Corpuscular Hemoglobin Concent 32.6, Red Cell Distribution Width 14.2, Platelet Count 249, Mean Platelet Volume 4.8L, Neutrophils (%) (Auto) 64.7, Lymphocytes ( %) (Auto) 21.0, Monocytes (%) (Auto) 7.5, Eosinophils (%) (Auto) 5.4H, Basophils (%) (Auto) 1.4, Sodium Level 140, Potassium Level 4.1, Chloride Level 106, Carbon Dioxide Level 25, Anion Gap 9, Blood Urea Nitrogen 16, Creatinine 1.6H, Estimat Glomerular Filtration Rate 44.2, Glucose Level 131H, Calcium Level 9.3 Height (Feet): 5 Height (Inches): 9.00 Weight (Pounds): 140 General Appearance: lethargic EENT: normal ENT inspection Neck: normal alignment Cardiovascular: normal peripheral pulses, normal rate, regular rhythm Respiratory/Chest: chest wall non-tender, lungs clear, normal breath sounds Abdomen: normal bowel sounds, non tender, soft Extremities: normal inspection Edema: no edema noted Arm (L), no edema noted Arm (R), no edema noted Leg (L), no edema noted Leg (R), no edema noted Pedal (L), no edema noted Pedal (R), no edema noted Generalized Neurologic: motor weakness Skin: normal pigmentation, warm/dry Mansoor Villafuerte DO Jun 18, 2019 12:53
--- NOTE | 2019-06-18 13:16 | NUR ---
SS note This Sw spoke with intake at [facility]; still pending evaluation and an open bed at this time.
--- NOTE | 2019-06-18 13:23 | Infectious Diseases Prog Note ---
Assessment/Plan Assessment/Plan Abx: Ceftriaxone x1 06/11 Assessment: Aggressive behavior Afebrile No leukocytosis Pyuria- Assymptomatic -u/a wbc tnct, nit +, leuk +3; ucx >100k PsA (cruz S), MRSA (S nitrofurantoin, bactrim, tetracycline, vanco); colonizers -2d Echo: no vegetatiosn -Bcx NTD schizophrenia COPD/asthma GERD BPH seizure disorder CKD hypothyroidism anxiety disorder [place] resident Plan: -Continue to monitor off abx unless febrile, leukocytosis or urinary symptoms -f/u cx -Monitor CBC/CMP, temperatures -f/u Bcx x2 Thank you for this consultation. Will continue to follow along with you. Discussed with RN. Subjective Allergies: Coded Allergies: CHLORPROMAZINE (Unverified Allergy, Unknown, 05/24/18) CLOZAPINE (Unverified Allergy, Unknown, 05/24/18) [place] (Unverified Allergy, Unknown, 06/12/19) FROM [facility] MEDICAL RECORDS DIVALPROEX SODIUM (Unverified Allergy, Unknown, 05/24/18) FISH CONTAINING PRODUCTS (Unverified Allergy, Unknown, 06/12/19) FROM [facility] MEDICAL RECORDS HALOPERIDOL (Unverified Allergy, Unknown, 05/24/18) ONION (Unverified Allergy, Unknown, 06/12/19) FROM [facility] MEDICAL RECORDS PENICILLINS (Verified Allergy, Unknown, 06/11/19) SERTRALINE (Unverified Allergy, Unknown, 05/24/18) Uncoded Allergies: CLOZASIL (Allergy, Unknown, 07/23/18) ZUCCHINI (Allergy, Unknown, 06/12/19) FROM [facility] MEDICAL RECORDS Subjective afebrile no leukocytosis BCx NTD Objective Vital Signs Last 24 Hour Vital Signs Date Time Temp Pulse Resp B/P (MAP) Pulse Ox O2 Delivery O2 Flow Rate FiO2 06/18/19 11:54 98.5 90 18 105/69 (81) 95 06/18/19 11:00 98.1 99 19 98/67 (77) 96 06/18/19 09:00 Room Air 06/18/19 08:50 97 18 97 Room Air 21 06/18/19 08:36 100 18 95 Room Air 21 06/18/19 08:36 100 18 95 Room Air 21 06/18/19 08:06 94 101/62 06/18/19 08:00 98.3 96 19 101/62 (75) 95 06/17/19 20:19 Room Air 06/17/19 20:04 101 118/81 06/17/19 19:58 98.0 101 20 118/81 (93) 100 06/17/19 19:52 98.3 06/17/19 18:50 103 18 96 Room Air 21 06/17/19 18:47 101 20 93 Room Air 21 06/17/19 18:40 101 20 93 Room Air 21 06/17/19 16:00 98.3 70 18 122/79 (93) 95 Height (Feet): 5 Height (Inches): 9.00 Weight (Pounds): 140 Objective General Appearance: WD/WN Lines, tubes and drains: peripheral HEENT: normocephalic, atraumatic Neck: non-tender, normal alignment Respiratory/Chest: chest wall non-tender, lungs clear Breasts: no masses Cardiovascular/Chest: normal peripheral pulses Abdomen: normal bowel sounds Extremities: normal range of motion Laboratory Tests Test 06/18/19 07:37 White Blood Count 6.4 K/UL (4.8-10.8) Red Blood Count 3.83 M/UL (4.70-6.10) L Hemoglobin 11.6 G/DL (14.2-18.0) L Hematocrit 35.4 % (42.0-52.0) L Mean Corpuscular Volume 92 FL (80-99) Mean Corpuscular Hemoglobin 30.1 PG (27.0-31.0) Mean Corpuscular Hemoglobin Concent 32.6 G/DL (32.0-36.0) Red Cell Distribution Width 14.2 % (11.6-14.8) Platelet Count 249 K/UL (150-450) Mean Platelet Volume 4.8 FL (6.5-10.1) L Neutrophils (%) (Auto) 64.7 % (45.0-75.0) Lymphocytes (%) (Auto) 21.0 % (20.0-45.0) Monocytes (%) (Auto) 7.5 % (1.0-10.0) Eosinophils (%) (Auto) 5.4 % (0.0-3.0) H Basophils (%) (Auto) 1.4 % (0.0-2.0) Sodium Level 140 MMOL/L (136-145) Potassium Level 4.1 MMOL/L (3.5-5.1) Chloride Level 106 MMOL/L (98-107) Carbon Dioxide Level 25 MMOL/L (21-32) Anion Gap 9 mmol/L (5-15) Blood Urea Nitrogen 16 mg/dL (7-18) Creatinine 1.6 MG/DL (0.55-1.30) H Estimat Glomerular Filtration Rate 44.2 mL/min (>60) Glucose Level 131 MG/DL (74-106) H Calcium Level 9.3 MG/DL (8.5-10.1) Current Medications Medications (Trade) Dose Ordered Sig/Cori Route PRN Reason Start Time Stop Time Status Last Admin Dose Admin Acetaminophen (Tylenol) 650 mg Q4H PRN ORAL fever (temp>100.5F) 06/14/19 20:30 07/14/19 16:20 Acetaminophen/ Hydrocodone Bitart ([place] 5/325) 1 tab Q4H PRN ORAL Moderate Pain (Pain Scale 4-6) 06/14/19 21:00 06/21/19 20:59 06/18/19 10:53 Al Hydroxide/Mg Hydroxide (Mylanta) 30 ml Q6H PRN ORAL Abdominal cramps 06/14/19 19:00 07/14/19 18:59 06/18/19 10:01 Albuterol/ Ipratropium (Albuterol/ Ipratropium) 3 ml Q4H PRN HHN Shortness of Breath 06/14/19 19:00 06/19/19 18:59 06/18/19 08:39 Atorvastatin Calcium (Lipitor) 10 mg BEDTIME ORAL 06/15/19 21:00 07/15/19 20:59 06/17/19 20:03 Clonazepam (KlonoPIN) 2 mg Q6H PRN ORAL For Anxiety 06/14/19 19:00 06/21/19 18:59 06/18/19 12:35 Dextrose (Dextrose 50%) 25 ml Q30M PRN IV Hypoglycemia 06/14/19 18:15 07/11/19 08:44 Dextrose (Dextrose 50%) 50 ml Q30M PRN IV Hypoglycemia 06/14/19 18:15 07/11/19 08:44 Finasteride (Proscar) 5 mg DAILY ORAL 06/15/19 09:00 07/11/19 08:59 06/18/19 08:06 Levothyroxine Sodium (Synthroid) 100 mcg Q24H ORAL 06/15/19 06:30 07/15/19 06:29 06/18/19 06:30 Lorazepam (Ativan 2mg/ml 1ml) 0.5 mg Q4H PRN IV For Anxiety 06/14/19 19:00 06/21/19 18:59 Metoprolol Tartrate (Lopressor) 25 mg Q12HR ORAL 06/14/19 21:00 07/14/19 20:59 06/17/19 20:04 Olanzapine (ZyPREXA) 10 mg BID ORAL 06/15/19 09:00 07/15/19 08:59 06/18/19 08:06 Ondansetron HCl (Zofran) 4 mg Q6H PRN IVP Nausea & Vomiting 06/14/19 19:00 07/14/19 18:59 Polyethylene Glycol (Miralax) 17 gm DAILYPRN PRN ORAL Constipation 06/15/19 12:00 07/14/19 19:59 Tamsulosin HCl (Flomax) 0.4 mg BID ORAL 06/15/19 09:00 07/15/19 08:59 06/18/19 08:06 Zolpidem Tartrate (Ambien) 5 mg HSPRN PRN ORAL Insomnia 06/15/19 20:00 06/21/19 19:59 06/17/19 20:03 Cha Underwood M.D. Jun 18, 2019 13:23
--- NOTE | 2019-06-18 15:11 | NUR ---
SS note [facility] ([phone]) has an accepting bd; RN from there will come out to place patient on hold in a couple of hours, then can send patient. Nursing aware and will get discharge orders.
[2019-06-18 16:00] VITALS: BP 141/94
--- NOTE | 2019-06-18 16:00 | NUR ---
NURSE NOTES: Patient refused RN to change foely or d/c. Dr. Underwood aware wit no new order.
--- NOTE | 2019-06-18 16:26 | Hematology/Onc Progress Note ---
Assessment/Plan Assessment/Plan Assessment/Recs: # Anemia of iron deficiency (based on prior workup, ferritin was <20), hgb has been downtrending --> r/o iron deficiency and other causes, w/u has been working --> at this time, ferritin is 133, basically is wnl, does not require iron therapy --> r/u underling hemolysis, bili is wnl at this time --> peripheral smear shows no schistocytes --> esr is high at this time --> hgb 11.2-->10.7-->10.5 # Pyuria asymptomatic --> seen by id --> consider abx as per id, is currently off # Aggressive behavior --> per psych management --> transfer per Dr. Kasandra Way # COPD/asthma --> breathing treatment on prn basis # GERD --> continue on ppi prn # BPH # Seizure disorder # Hypothyroidism # Anxiety disorder # [facility] resident The timing of this note does not necessarily reflect the time of the patient was seen. GREATLY APPRECIATE CONSULTATION. Subjective HEENT: Denies: no symptoms, eye pain, blurred vision, tearing, double vision, ear pain, ear discharge, nose pain, nose congestion, throat pain, throat swelling, mouth pain, mouth swelling, other Cardiovascular: Denies: no symptoms, chest pain, edema, irregular heart rate, lightheadedness, palpitations, syncope, other Respiratory: Denies: no symptoms, cough, shortness of breath, SOB with excertion, SOB at rest, sputum, wheezing, other Gastrointestinal/Abdominal: Denies: no symptoms, abdomen distended, abdominal pain, black stools, tarry stools, blood in stool, constipated, diarrhea, difficulty swallowing, nausea, poor appetite, poor fluid intake, rectal bleeding , vomiting, other Genitourinary: Denies: no symptoms, burning, discharge, frequency, flank pain, hematuria, incontinence, pain, urgency, other 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: Denies: no symptoms, anxiety, depressed, emotional problems, headache, numbness, paresthesia, pre-existing deficit, seizure, tingling, tremors, weakness, other Endocrine: Denies: no symptoms, excessive sweating, flushing, intolerance to cold, intolerance to heat, increased hunger, increased thirst, increased urine, unexplained weight gain, unexplained weight loss, other Allergies: Coded Allergies: CHLORPROMAZINE (Unverified Allergy, Unknown, 05/24/18) CLOZAPINE (Unverified Allergy, Unknown, 05/24/18) [place] (Unverified Allergy, Unknown, 06/12/19) FROM [facility] MEDICAL RECORDS DIVALPROEX SODIUM (Unverified Allergy, Unknown, 05/24/18) FISH CONTAINING PRODUCTS (Unverified Allergy, Unknown, 06/12/19) FROM [facility] MEDICAL RECORDS HALOPERIDOL (Unverified Allergy, Unknown, 05/24/18) ONION (Unverified Allergy, Unknown, 06/12/19) FROM [facility] MED[facility] RECORDS PENICILLINS (Verified Allergy, Unknown, 06/11/19) SERTRALINE (Unverified Allergy, Unknown, 05/24/18) Uncoded Allergies: CLOZASIL (Allergy, Unknown, 07/23/18) ZUCCHINI (Allergy, Unknown, 06/12/19) FROM [facility] MEDICAL RECORDS Subjective 06/13: no events overnight, on abx, says doesn't want to go back to [facility] , ferritin ordered 06/14: no fevers or chills noted, no bleeding, transfer pending 06/16: a+o x4, no f/c, no night sweats, labs reviewed, psych transfer potentially 06/17: resting in bed, iv site clean and dry, no f/c noted, no bleeding 06/18: bp is better as is hgb improved, seen by cards, hr improved Objective Objective Current Medications Medications (Trade) Dose Ordered Sig/Cori Route PRN Reason Start Time Stop Time Status Last Admin Dose Admin Acetaminophen (Tylenol) 650 mg Q4H PRN ORAL fever (temp>100.5F) 06/14/19 20:30 07/14/19 16:20 Acetaminophen/ Hydrocodone Bitart ([place] 5/325) 1 tab Q4H PRN ORAL Moderate Pain (Pain Scale 4-6) 06/14/19 21:00 06/21/19 20:59 06/18/19 15:04 Al Hydroxide/Mg Hydroxide (Mylanta) 30 ml Q6H PRN ORAL Abdominal cramps 06/14/19 19:00 07/14/19 18:59 06/18/19 10:01 Albuterol/ Ipratropium (Albuterol/ Ipratropium) 3 ml Q4H PRN HHN Shortness of Breath 06/14/19 19:00 06/19/19 18:59 06/18/19 08:39 Atorvastatin Calcium (Lipitor) 10 mg BEDTIME ORAL 06/15/19 21:00 07/15/19 20:59 06/17/19 20:03 Clonazepam (KlonoPIN) 2 mg Q6H PRN ORAL For Anxiety 06/14/19 19:00 06/21/19 18:59 06/18/19 12:35 Dextrose (Dextrose 50%) 25 ml Q30M PRN IV Hypoglycemia 06/14/19 18:15 07/11/19 08:44 Dextrose (Dextrose 50%) 50 ml Q30M PRN IV Hypoglycemia 06/14/19 18:15 07/11/19 08:44 Finasteride (Proscar) 5 mg DAILY ORAL 06/15/19 09:00 07/11/19 08:59 06/18/19 08:06 Levothyroxine Sodium (Synthroid) 100 mcg Q24H ORAL 06/15/19 06:30 07/15/19 06:29 06/18/19 06:30 Lorazepam (Ativan 2mg/ml 1ml) 0.5 mg Q4H PRN IV For Anxiety 06/14/19 19:00 06/21/19 18:59 Metoprolol Tartrate (Lopressor) 25 mg Q12HR ORAL 06/14/19 21:00 07/14/19 20:59 06/17/19 20:04 Olanzapine (ZyPREXA) 10 mg BID ORAL 06/15/19 09:00 07/15/19 08:59 06/18/19 08:06 Ondansetron HCl (Zofran) 4 mg Q6H PRN IVP Nausea & Vomiting 06/14/19 19:00 07/14/19 18:59 Polyethylene Glycol (Miralax) 17 gm DAILYPRN PRN ORAL Constipation 06/15/19 12:00 07/14/19 19:59 Tamsulosin HCl (Flomax) 0.4 mg BID ORAL 06/15/19 09:00 07/15/19 08:59 06/18/19 08:06 Zolpidem Tartrate (Ambien) 5 mg HSPRN PRN ORAL Insomnia 06/15/19 20:00 06/21/19 19:59 06/17/19 20:03 Last 24 Hour Vital Signs Date Time Temp Pulse Resp B/P (MAP) Pulse Ox O2 Delivery O2 Flow Rate FiO2 06/18/19 11:54 98.5 90 18 105/69 (81) 95 06/18/19 11:00 98.1 99 19 98/67 (77) 96 06/18/19 09:00 Room Air 06/18/19 08:50 97 18 97 Room Air 06/18/19 08:36 100 18 95 Room Air 21 06/18/19 08:36 100 18 95 Room Air 21 06/18/19 08:06 94 101/62 06/18/19 08:00 98.3 96 19 101/62 (75) 95 06/17/19 20:19 Room Air 06/17/19 20:04 101 118/81 06/17/19 19:58 98.0 101 20 118/81 (93) 100 06/17/19 19:52 98.3 06/17/19 18:50 103 18 96 Room Air 06/17/19 18:47 101 20 93 Room Air 21 06/17/19 18:40 101 20 93 Room Air 21 06/17/19 16:00 98.3 70 18 122/79 (93) 95 06/17/19 12:00 98.5 76 18 125/83 (97) 98 06/17/19 09:00 Room Air 06/17/19 08:48 105 107/68 06/17/19 08:00 98.0 80 18 118/77 (91) 97 06/17/19 07:50 99 16 97 Room Air 06/16/19 20:16 Room Air 06/16/19 20:14 92 18 99 Room Air 06/16/19 20:09 83 110/72 06/16/19 20:07 97.9 83 18 110/72 (85) 95 06/16/19 20:06 92 18 96 Room Air 21 06/16/19 20:05 92 18 96 Room Air 21 06/16/19 16:35 87 19 98 Room Air 21 Intake and Output 06/17/19 06/18/19 18:59 06:59 Intake Total 400 ml Output Total 1300 ml 700 ml Balance -900 ml -700 ml Intake Oral 400 ml Output Urine Total 1300 ml 700 ml Labs Test 06/16/19 06:05 06/17/19 05:45 06/17/19 11:40 06/18/19 07:37 White Blood Count 6.2 K/UL (4.8-10.8) 5.1 K/UL (4.8-10.8) 6.4 K/UL (4.8-10.8) Red Blood Count 3.53 M/UL (4.70-6.10) 3.47 M/UL (4.70-6.10) 3.83 M/UL (4.70-6.10) Hemoglobin 10.7 G/DL (14.2-18.0) 10.5 G/DL (14.2-18.0) 11.6 G/DL (14.2-18.0) Hematocrit 32.8 % (42.0-52.0) 32.0 % (42.0-52.0) 35.4 % (42.0-52.0) Mean Corpuscular Volume 93 FL (80-99) 92 FL (80-99) 92 FL (80-99) Mean Corpuscular Hemoglobin 30.5 PG (27.0-31.0) 30.3 PG (27.0-31.0) 30.1 PG (27.0-31.0) Mean Corpuscular Hemoglobin Concent 32.8 G/DL (32.0-36.0) 32.9 G/DL (32.0-36.0) 32.6 G/DL (32.0-36.0) Red Cell Distribution Width 14.0 % (11.6-14.8) 13.7 % (11.6-14.8) 14.2 % (11.6-14.8) Platelet Count 194 K/UL (150-450) 194 K/UL (150-450) 249 K/UL (150-450) Mean Platelet Volume 5.3 FL (6.5-10.1) 4.9 FL (6.5-10.1) 4.8 FL (6.5-10.1) Neutrophils (%) (Auto) 69.5 % (45.0-75.0) 60.4 % (45.0-75.0) 64.7 % (45.0-75.0) Lymphocytes (%) (Auto) 16.4 % (20.0-45.0) 23.4 % (20.0-45.0) 21.0 % (20.0-45.0) Monocytes (%) (Auto) 8.1 % (1.0-10.0) 10.1 % (1.0-10.0) 7.5 % (1.0-10.0) Eosinophils (%) (Auto) 5.1 % (0.0-3.0) 4.9 % (0.0-3.0) 5.4 % (0.0-3.0) Basophils (%) (Auto) 0.9 % (0.0-2.0) 1.3 % (0.0-2.0) 1.4 % (0.0-2.0) Sodium Level 144 MMOL/L (136-145) 139 MMOL/L (136-145) 140 MMOL/L (136-145) Potassium Level 4.4 MMOL/L (3.5-5.1) 3.8 MMOL/L (3.5-5.1) 4.1 MMOL/L (3.5-5.1) Chloride Level 110 MMOL/L (98-107) 105 MMOL/L (98-107) 106 MMOL/L (98-107) Carbon Dioxide Level 27 MMOL/L (21-32) 28 MMOL/L (21-32) 25 MMOL/L (21-32) Anion Gap 7 mmol/L (5-15) 6 mmol/L (5-15) 9 mmol/L (5-15) Blood Urea Nitrogen 21 mg/dL (7-18) 18 mg/dL (7-18) 16 mg/dL (7-18) Creatinine 1.6 MG/DL (0.55-1.30) 1.4 MG/DL (0.55-1.30) 1.6 MG/DL (0.55-1.30) Estimat Glomerular Filtration Rate 44.2 mL/min (>60) 51.5 mL/min (>60) 44.2 mL/min (>60) Glucose Level 95 MG/DL (74-106) 93 MG/DL (74-106) 131 MG/DL (74-106) Calcium Level 8.9 MG/DL (8.5-10.1) 8.8 MG/DL (8.5-10.1) 9.3 MG/DL (8.5-10.1) Troponin I 0.000 ng/mL (0.000-0.056) Height (Feet): 5 Height (Inches): 9.00 Weight (Pounds): 140 Objective Gen: NAD, A+O x3 Pulm: Ctab, no cwr CV: RRR, no mgr Abd: soft, nt, nd Ext: no cce Neuro: grossly intact, cn II-XII intact Ba Manriquez MD Jun 18, 2019 16:26
--- NOTE | 2019-06-18 16:45 | Progress Note ---
DATE: 06/18/2019 SUBJECTIVE: This is a 63-year-old male with psychomotor agitation. He is irritable, confused, disorganized, and extremely mood labile and delusional. MENTAL STATUS EXAMINATION: This is a 63-year-old male. Appearance is disheveled. Attitude, irritable and agitated. Affect, guarded and restricted. Intellect poor. Mood, depressed and anxious. Motor activity, psychomotor agitation. Attention span is poor. Orientation x2. Speech is pressured. Thought process, disorganized and illogical. Insight and judgment is poor. DIAGNOSIS: Paranoid schizophrenia with acute exacerbation. PLAN: I am going to titrate up on Zyprexa 10 mg twice a day. Provided him with 20 minutes of reality-based supportive psychotherapy. I encouraged him to interact appropriately with staff. A 20 minutes of cognitive behavioral therapy to help him identify his automatic negative thoughts and help him convert those negative thoughts to more positive thoughts to reduce depression, anxiety, and mood lability. Chart reviewed. Discussed with staff. Seen and assessed in his room. Shantanu Way M.D. DR: MAGNOLIA JOB#: [id number] CC:
--- NOTE | 2019-06-18 19:27 | NUR ---
HAND-OFF: Report given to Sary and endorsed to Sary that clinitian will come for the patient.
--- NOTE | 2019-06-18 19:30 | NUR ---
NURSE NOTES: Received a call from Britni cedillo from [facility], she said a clinitian is coming for the patient tomorrow morning not today. Endorsed to the next shift.
[2019-06-18 20:00] VITALS: BP 111/67
--- NOTE | 2019-06-18 20:01 | NUR ---
NURSE NOTES: Received patient in bed, awake, alert, oriented x 3/4, BRP with steady gate, on room air, no IV site, MD is aware, no acute distress noted, VSS, afebrile. Call light is within reach, bed is in low position, locked and alarm is on, will continue to monitor for safety and comfort.
[2019-06-18] MEDS: Zolpidem 5mg tab ORAL PRN (20:38)
--- NOTE | 2019-06-18 21:46 | Pulmonology Progress Note ---
Assessment/Plan Problems: (1) Tachycardia (2) Acute encephalopathy (3) Agitation (4) COPD (chronic obstructive pulmonary disease) (5) Hypothyroidism (6) Anemia (7) Psychosis Assessment/Plan telemetry monitoring in better mood f/u psych recommendations anemia w/u in progress respiratory treatment titrate fio2 to sat of 92% f/u cardiology recommendations Subjective Allergies: Coded Allergies: CHLORPROMAZINE (Unverified Allergy, Unknown, 05/24/18) CLOZAPINE (Unverified Allergy, Unknown, 05/24/18) [place] (Unverified Allergy, Unknown, 06/12/19) FROM [facility] MEDICAL RECORDS DIVALPROEX SODIUM (Unverified Allergy, Unknown, 05/24/18) FISH CONTAINING PRODUCTS (Unverified Allergy, Unknown, 06/12/19) FROM [facility] MEDICAL RECORDS HALOPERIDOL (Unverified Allergy, Unknown, 05/24/18) ONION (Unverified Allergy, Unknown, 06/12/19) FROM [facility] MEDICAL RECORDS PENICILLINS (Verified Allergy, Unknown, 06/11/19) SERTRALINE (Unverified Allergy, Unknown, 05/24/18) Uncoded Allergies: CLOZASIL (Allergy, Unknown, 07/23/18) ZUCCHINI (Allergy, Unknown, 06/12/19) FROM [facility] MEDICAL RECORDS Objective Last 24 Hour Vital Signs Date Time Temp Pulse Resp B/P (MAP) Pulse Ox O2 Delivery O2 Flow Rate FiO2 06/18/19 21:00 Room Air 06/18/19 20:35 95 111/67 06/18/19 20:00 99.1 95 20 111/67 (82) 96 06/18/19 19:48 92 20 96 Room Air 06/18/19 18:09 103 20 97 Room Air 06/18/19 16:00 97.5 72 18 141/94 (110) 96 06/18/19 11:54 98.5 90 18 105/69 (81) 95 06/18/19 11:00 98.1 99 19 98/67 (77) 96 06/18/19 09:00 Room Air 06/18/19 08:50 97 18 97 Room Air 21 06/18/19 08:36 100 18 95 Room Air 06/18/19 08:36 100 18 95 Room Air 06/18/19 08:06 94 101/62 06/18/19 08:00 98.3 96 19 101/62 (75) 95 Intake and Output 06/17/19 06/18/19 19:00 07:00 Intake Total 400 ml Output Total 1300 ml 700 ml Balance -900 ml -700 ml Intake Oral 400 ml Output Urine Total 1300 ml 700 ml Laboratory Tests 06/18/19 07:37: White Blood Count 6.4, Red Blood Count 3.83L, Hemoglobin 11.6L, Hematocrit 35.4L , Mean Corpuscular Volume 92, Mean Corpuscular Hemoglobin 30.1, Mean Corpuscular Hemoglobin Concent 32.6, Red Cell Distribution Width 14.2, Platelet Count 249, Mean Platelet Volume 4.8L, Neutrophils (%) (Auto) 64.7, Lymphocytes ( %) (Auto) 21.0, Monocytes (%) (Auto) 7.5, Eosinophils (%) (Auto) 5.4H, Basophils (%) (Auto) 1.4, Sodium Level 140, Potassium Level 4.1, Chloride Level 106, Carbon Dioxide Level 25, Anion Gap 9, Blood Urea Nitrogen 16, Creatinine 1.6H, Estimat Glomerular Filtration Rate 44.2, Glucose Level 131H, Calcium Level 9.3 Current Medications Medications (Trade) Dose Ordered Sig/Cori Route PRN Reason Start Time Stop Time Status Last Admin Dose Admin Acetaminophen (Tylenol) 650 mg Q4H PRN ORAL fever (temp>100.5F) 06/14/19 20:30 07/14/19 16:20 Acetaminophen/ Hydrocodone Bitart ([place] 5/325) 1 tab Q4H PRN ORAL Moderate Pain (Pain Scale 4-6) 06/14/19 21:00 06/21/19 20:59 06/18/19 20:39 Al Hydroxide/Mg Hydroxide (Mylanta) 30 ml Q6H PRN ORAL Abdominal cramps 06/14/19 19:00 07/14/19 18:59 06/18/19 18:36 Albuterol/ Ipratropium (Albuterol/ Ipratropium) 3 ml Q4H PRN HHN Shortness of Breath 06/14/19 19:00 06/19/19 18:59 06/18/19 18:09 Atorvastatin Calcium (Lipitor) 10 mg BEDTIME ORAL 06/15/19 21:00 07/15/19 20:59 06/18/19 20:35 Clonazepam (KlonoPIN) 2 mg Q6H PRN ORAL For Anxiety 06/14/19 19:00 06/21/19 18:59 06/18/19 18:41 Dextrose (Dextrose 50%) 25 ml Q30M PRN IV Hypoglycemia 06/14/19 18:15 07/11/19 08:44 Dextrose (Dextrose 50%) 50 ml Q30M PRN IV Hypoglycemia 06/14/19 18:15 07/11/19 08:44 Finasteride (Proscar) 5 mg DAILY ORAL 06/15/19 09:00 07/11/19 08:59 06/18/19 08:06 Levothyroxine Sodium (Synthroid) 100 mcg Q24H ORAL 06/15/19 06:30 07/15/19 06:29 06/18/19 06:30 Lorazepam (Ativan 2mg/ml 1ml) 0.5 mg Q4H PRN IV For Anxiety 06/14/19 19:00 06/21/19 18:59 Metoprolol Tartrate (Lopressor) 25 mg Q12HR ORAL 06/14/19 21:00 07/14/19 20:59 06/18/19 20:35 Olanzapine (ZyPREXA) 10 mg BID ORAL 06/15/19 09:00 07/15/19 08:59 06/18/19 18:02 Ondansetron HCl (Zofran) 4 mg Q6H PRN IVP Nausea & Vomiting 06/14/19 19:00 07/14/19 18:59 Polyethylene Glycol (Miralax) 17 gm DAILYPRN PRN ORAL Constipation 06/15/19 12:00 07/14/19 19:59 Tamsulosin HCl (Flomax) 0.4 mg BID ORAL 06/15/19 09:00 07/15/19 08:59 06/18/19 18:02 Zolpidem Tartrate (Ambien) 5 mg HSPRN PRN ORAL Insomnia 06/15/19 20:00 06/21/19 19:59 06/18/19 20:38 Murali Allen MD Jun 18, 2019 21:46
[2019-06-19] VITALS: BP 98/51
[2019-06-19 04:00] VITALS: BP 92/58
[2019-06-19] MEDS: HYDROcodone/Acetamin 5/325 tab ORAL PRN ×3 (06:30→14:42)
[2019-06-19 06:41] LABS: BASOPHILS % (AUTO) 0.9 % (0.0-2.0); EOSINOPHILS % (AUTO) 5.6 % (0.0-3.0); HEMATOCRIT 30.5 % (42.0-52.0); LYMPHOCYTES % (AUTO) 24.8 % (20.0-45.0); MEAN CORPUSCULAR VOLUME 92 FL (80-99); MONOCYTES % (AUTO) 9.6 % (1.0-10.0); NEUTROPHILS % (AUTO) 59.1 % (45.0-75.0); PLATELET COUNT 231 K/UL (150-450); RED BLOOD COUNT 3.31 M/UL (4.70-6.10); RED CELL DISTRIBUTION WIDTH 13.2 % (11.6-14.8); WHITE BLOOD COUNT 5.7 K/UL (4.8-10.8)
--- NOTE | 2019-06-19 06:45 | NUR ---
HAND-OFF: Report given to Davin RAMEY.
[2019-06-19 07:01] LABS: ANION GAP 7 mmol/L (5-15); BLOOD UREA NITROGEN 14 mg/dL (7-18); CALCIUM 8.3 MG/DL (8.5-10.1); CARBON DIOXIDE 28 MMOL/L (21-32); CHLORIDE 105 MMOL/L (98-107); CREATININE 1.5 MG/DL (0.55-1.30); POTASSIUM 3.9 MMOL/L (3.5-5.1); SODIUM 139 MMOL/L (136-145)
--- NOTE | 2019-06-19 07:40 | NUR ---
NURSE NOTES: Received patient in bed, AAOx3. Not in acute respiratory/cardiac distress. Bed is in lowest position and locked. No IV. Patient refused IV insertion. Ramirez is in tact and draining well to gravity. Patient was evaluated by the clinician Shayne from [facility].He said [facility] [place] needs to contact [facility] intake if patient is going to urgent care and direct admit to hospital. Original evaluation form in the transfer packet and made copy and placed it in the chart. CM is not available @ this time. Will follow up.
[2019-06-19 08:00] VITALS: BP 101/72
--- NOTE | 2019-06-19 08:13 | NUR ---
NURSE NOTES: RN placed a call and left message to CM to follow up of discharge.
--- NOTE | 2019-06-19 08:32 | NUR ---
RADIOLOGY DEPT., CHEST X-RAY DONE.-P.DYE
[2019-06-19] MEDS: Tamsulosin 0.4mg cap ORAL SCH (09:16)
[2019-06-19] MEDS: OLANZapine 10mg tab ORAL SCH (09:16)
[2019-06-19] MEDS: Metoprolol 25mg tab ORAL SCH (09:16)
[2019-06-19] MEDS: Albuterol/Ipratropium 3ml neb HHN PRN (09:27)
--- NOTE | 2019-06-19 11:36 | NUR ---
Social Work Patient has been accepted by [facility] at the following location: [address] [place] [address] RN to RN (ask for [facility]): [phone] Dr. Moncada, Psychiatry to follow at Psych. facility.
[2019-06-19 12:00] VITALS: BP 113/73
--- NOTE | 2019-06-19 12:34 | NUR ---
NURSE NOTES: RN received transfer information from delinquency prevention social worker Latrice. Interfacility report given to [facility] unit @ [facility] and transportation was arranged @3:00 from [facility].
--- NOTE | 2019-06-19 12:42 | Cardiac Electrophysiology PN ---
Assessment/Plan Assessment/Plan 1. Sinus tachycardia with any evidence of atrial fibrillation or supraventricular tachycardia. On Lopressor 25 bid HR 70s. On Albuterol that can precipitate sinus tach 2. Chest pain. Already ruled out for AK. Echo EF 45-50%. ECG normal 3. Hypertension. On metoprolol 25 bid 4. Hypothyroidism, on Synthroid. 5. Renal failure. Creatinine 1.6. 6. Schizophrenia. 7. Benign prostatic hypertrophy, on Proscar. 8. COPD DW RN DC today to [facility] pending Subjective Subjective No CP or SOB. DC planning today to [facility] Objective Last 24 Hour Vital Signs Date Time Temp Pulse Resp B/P (MAP) Pulse Ox O2 Delivery O2 Flow Rate FiO2 06/19/19 09:37 88 18 99 Room Air 06/19/19 09:27 87 18 95 Room Air 06/19/19 09:16 94 101/72 06/19/19 09:00 Room Air 06/19/19 08:14 99 18 96 Room Air 06/19/19 08:00 98.4 94 18 101/72 (82) 06/19/19 04:00 98.1 76 18 92/58 (69) 06/19/19 00:00 98.5 77 18 98/51 (67) 06/18/19 22:49 78 18 99 Room Air 06/18/19 22:39 72 18 95 Room Air 06/18/19 21:00 Room Air 06/18/19 20:35 95 111/67 06/18/19 20:00 99.1 95 20 111/67 (82) 96 06/18/19 19:48 92 20 96 Room Air 06/18/19 18:09 103 20 97 Room Air 06/18/19 16:00 97.5 72 18 141/94 (110) 96 Intake and Output 06/18/19 06/19/19 19:00 07:00 Intake Total 900 ml Output Total 900 ml Balance 0 ml Other 900 ml Output Urine Total 900 ml Laboratory Tests Test 06/19/19 05:50 White Blood Count 5.7 K/UL (4.8-10.8) Red Blood Count 3.31 M/UL (4.70-6.10) L Hemoglobin 10.0 G/DL (14.2-18.0) L Hematocrit 30.5 % (42.0-52.0) L Mean Corpuscular Volume 92 FL (80-99) Mean Corpuscular Hemoglobin 30.2 PG (27.0-31.0) Mean Corpuscular Hemoglobin Concent 32.8 G/DL (32.0-36.0) Red Cell Distribution Width 13.2 % (11.6-14.8) Platelet Count 231 K/UL (150-450) Mean Platelet Volume 5.0 FL (6.5-10.1) L Neutrophils (%) (Auto) 59.1 % (45.0-75.0) Lymphocytes (%) (Auto) 24.8 % (20.0-45.0) Monocytes (%) (Auto) 9.6 % (1.0-10.0) Eosinophils (%) (Auto) 5.6 % (0.0-3.0) H Basophils (%) (Auto) 0.9 % (0.0-2.0) Sodium Level 139 MMOL/L (136-145) Potassium Level 3.9 MMOL/L (3.5-5.1) Chloride Level 105 MMOL/L (98-107) Carbon Dioxide Level 28 MMOL/L (21-32) Anion Gap 7 mmol/L (5-15) Blood Urea Nitrogen 14 mg/dL (7-18) Creatinine 1.5 MG/DL (0.55-1.30) H Estimat Glomerular Filtration Rate 47.6 mL/min (>60) Glucose Level 92 MG/DL (74-106) Calcium Level 8.3 MG/DL (8.5-10.1) L Objective HEAD AND NECK: Showed no JVD. LUNGS: Clear. CARDIOVASCULAR: Shows tachycardic. S1 and S2 with no gallop or murmur. ABDOMEN: Soft and nontender. EXTREMITIES: No pitting edema. Ang Avendano MD Jun 19, 2019 12:42
--- NOTE | 2019-06-19 14:16 | General Progress Note ---
Assessment/Plan Problem List: (1) UTI (urinary tract infection) ICD Codes: N39.0 - Urinary tract infection, site not specified SNOMED: 19485562 Qualifiers: Qualified Codes: N30.00 - Acute cystitis without hematuria (2) COPD exacerbation ICD Codes: J44.1 - Chronic obstructive pulmonary disease with (acute) exacerbation SNOMED: 420962510 (3) ATN (acute tubular necrosis) ICD Codes: N17.0 - Acute kidney failure with tubular necrosis SNOMED: 33327957 (4) Asthma ICD Codes: J45.909 - Unspecified asthma, uncomplicated SNOMED: 725845123 (5) Agitation ICD Codes: R45.1 - Restlessness and agitation SNOMED: 606260482 Status: stable, progressing Assessment/Plan: pt diet abx cardio f/u cbc bmp am psyc transfer w dr rivera Subjective Constitutional: Reports: weakness Allergies: Coded Allergies: CHLORPROMAZINE (Unverified Allergy, Unknown, 05/24/18) CLOZAPINE (Unverified Allergy, Unknown, 05/24/18) Arpin (Unverified Allergy, Unknown, 06/12/19) FROM [facility] DIVALPROEX SODIUM (Unverified Allergy, Unknown, 05/24/18) FISH CONTAINING PRODUCTS (Unverified Allergy, Unknown, 06/12/19) FROM [facility] HALOPERIDOL (Unverified Allergy, Unknown, 05/24/18) ONION (Unverified Allergy, Unknown, 06/12/19) FROM [facility] PENICILLINS (Verified Allergy, Unknown, 06/11/19) SERTRALINE (Unverified Allergy, Unknown, 05/24/18) Uncoded Allergies: CLOZASIL (Allergy, Unknown, 07/23/18) ZUCCHINI (Allergy, Unknown, 06/12/19) FROM [facility] All Systems: reviewed and negative except above Subjective sleepy calm Objective Last 24 Hour Vital Signs Date Time Temp Pulse Resp B/P (MAP) Pulse Ox O2 Delivery O2 Flow Rate FiO2 06/19/19 12:00 98.1 102 20 113/73 (86) 96 06/19/19 09:37 88 18 99 Room Air 21 06/19/19 09:27 87 18 95 Room Air 21 06/19/19 09:16 94 101/72 06/19/19 09:00 Room Air 06/19/19 08:14 99 18 96 Room Air 21 06/19/19 08:00 98.4 94 18 101/72 (82) 06/19/19 04:00 98.1 76 18 92/58 (69) 06/19/19 00:00 98.5 77 18 98/51 (67) 06/18/19 22:49 78 18 99 Room Air 21 06/18/19 22:39 72 18 95 Room Air 21 06/18/19 21:00 Room Air 06/18/19 20:35 95 111/67 06/18/19 20:00 99.1 95 20 111/67 (82) 96 06/18/19 19:48 92 20 96 Room Air 21 06/18/19 18:09 103 20 97 Room Air 21 06/18/19 16:00 97.5 72 18 141/94 (110) 96 Intake and Output 06/18/19 06/19/19 19:00 07:00 Intake Total 900 ml Output Total 900 ml Balance 0 ml Other 900 ml Output Urine Total 900 ml Laboratory Tests 06/19/19 05:50: White Blood Count 5.7, Red Blood Count 3.31L, Hemoglobin 10.0L, Hematocrit 30.5L , Mean Corpuscular Volume 92, Mean Corpuscular Hemoglobin 30.2, Mean Corpuscular Hemoglobin Concent 32.8, Red Cell Distribution Width 13.2, Platelet Count 231, Mean Platelet Volume 5.0L, Neutrophils (%) (Auto) 59.1, Lymphocytes ( %) (Auto) 24.8, Monocytes (%) (Auto) 9.6, Eosinophils (%) (Auto) 5.6H, Basophils (%) (Auto) 0.9, Sodium Level 139, Potassium Level 3.9, Chloride Level 105, Carbon Dioxide Level 28, Anion Gap 7, Blood Urea Nitrogen 14, Creatinine 1.5H, Estimat Glomerular Filtration Rate 47.6, Glucose Level 92, Calcium Level 8.3L Height (Feet): 5 Height (Inches): 9.00 Weight (Pounds): 140 General Appearance: lethargic EENT: normal ENT inspection Neck: normal alignment Cardiovascular: normal peripheral pulses, normal rate, regular rhythm Respiratory/Chest: chest wall non-tender, lungs clear, normal breath sounds Abdomen: normal bowel sounds, non tender, soft Extremities: normal inspection Edema: no edema noted Arm (L), no edema noted Arm (R), no edema noted Leg (L), no edema noted Leg (R), no edema noted Pedal (L), no edema noted Pedal (R), no edema noted Generalized Neurologic: motor weakness Skin: normal pigmentation, warm/dry Mansoor Villafuerte DO Jun 19, 2019 14:16
--- NOTE | 2019-06-19 15:00 | NUR ---
NURSE NOTES: patient was discharged to [facility] unit in [place] accompanied by two ambulance personnels in stable condition with original form of hold paper. Interfacility given to nurse Brittny. Per Brtitny, patient is assigned to room 7B but it might be changed. Rn informed patient's sister Sharlene Mckeon of discharge with phone number. Prior to discharge, cardoza was removed without any difficulties and patient voided right after. No bloody urine. Skin assessment done, skin intact, no IV. Patient refused to sign on belongings list and discharge instruction paper. But Rn checked all his belongings. a black colored watch was worn by the patient, clothings , shoes and garcia cross matched with belongings list. Vital sign stable.
--- NOTE | 2019-06-19 18:00 | Progress Note ---
DATE: 06/19/2019 SUBJECTIVE: This is a 63-year-old male patient. He has had agitation, however, he has altered mental status, confusion, and mood lability worsened by stress of his medical illness. That is why his attending physician has requested daily psychiatric consultation. MENTAL STATUS EXAMINATION: This is a 63-year-old male. Appearance is disheveled. Attitude, irritable and agitated. Affect, guarded and restricted. Intellect, poor. Mood, depressed and anxious. Motor activity, psychomotor agitation. Attention span is poor. Orientation x3. Speech is pressured. Thought process, disorganized and illogical. Insight and judgment is poor. DIAGNOSIS: Paranoid schizophrenia, acute exacerbation. PLAN: Treat him with Zyprexa 10 mg twice a day. 20 minutes of reality-based supportive psychotherapy. Chart reviewed. Discussed with staff. Shantanu Way M.D. DR: ТАТЬЯНА JOB#: [id number] CC:
--- NOTE | 2019-06-19 18:49 | Cardiology Report ---
APPROVED REPORT EKG Measurement Heart [id number] Normal sinus rhythm Normal ECG
--- NOTE | 2019-06-19 20:10 | Pulmonology Progress Note ---
Assessment/Plan Problems: (1) Tachycardia (2) Acute encephalopathy (3) Agitation (4) COPD (chronic obstructive pulmonary disease) (5) Hypothyroidism (6) Anemia (7) Psychosis Assessment/Plan telemetry monitoring in better mood f/u psych recommendations anemia w/u in progress respiratory treatment titrate fio2 to sat of 92% f/u cardiology recommendations Subjective Allergies: Coded Allergies: CHLORPROMAZINE (Unverified Allergy, Unknown, 05/24/18) CLOZAPINE (Unverified Allergy, Unknown, 05/24/18) Cascade (Unverified Allergy, Unknown, 06/12/19) FROM [facility] DIVALPROEX SODIUM (Unverified Allergy, Unknown, 05/24/18) FISH CONTAINING PRODUCTS (Unverified Allergy, Unknown, 06/12/19) FROM [facility] HALOPERIDOL (Unverified Allergy, Unknown, 05/24/18) ONION (Unverified Allergy, Unknown, 06/12/19) FROM [facility] PENICILLINS (Verified Allergy, Unknown, 06/11/19) SERTRALINE (Unverified Allergy, Unknown, 05/24/18) Uncoded Allergies: CLOZASIL (Allergy, Unknown, 07/23/18) ZUCCHINI (Allergy, Unknown, 06/12/19) FROM [facility] Objective Last 24 Hour Vital Signs Date Time Temp Pulse Resp B/P (MAP) Pulse Ox O2 Delivery O2 Flow Rate FiO2 06/19/19 12:00 98.1 102 20 113/73 (86) 96 06/19/19 09:37 88 18 99 Room Air 21 06/19/19 09:27 87 18 95 Room Air 06/19/19 09:16 94 101/72 06/19/19 09:00 Room Air 06/19/19 08:14 99 18 96 Room Air 21 06/19/19 08:00 98.4 94 18 101/72 (82) 06/19/19 04:00 98.1 76 18 92/58 (69) 06/19/19 00:00 98.5 77 18 98/51 (67) 06/18/19 22:49 78 18 99 Room Air 21 06/18/19 22:39 72 18 95 Room Air 21 06/18/19 21:00 Room Air 06/18/19 20:35 95 111/67 Intake and Output 06/18/19 06/19/19 18:59 06:59 Intake Total 900 ml Output Total 900 ml Balance 0 ml Other 900 ml Output Urine Total 900 ml Laboratory Tests 06/19/19 05:50: White Blood Count 5.7, Red Blood Count 3.31L, Hemoglobin 10.0L, Hematocrit 30.5L , Mean Corpuscular Volume 92, Mean Corpuscular Hemoglobin 30.2, Mean Corpuscular Hemoglobin Concent 32.8, Red Cell Distribution Width 13.2, Platelet Count 231, Mean Platelet Volume 5.0L, Neutrophils (%) (Auto) 59.1, Lymphocytes ( %) (Auto) 24.8, Monocytes (%) (Auto) 9.6, Eosinophils (%) (Auto) 5.6H, Basophils (%) (Auto) 0.9, Sodium Level 139, Potassium Level 3.9, Chloride Level 105, Carbon Dioxide Level 28, Anion Gap 7, Blood Urea Nitrogen 14, Creatinine 1.5H, Estimat Glomerular Filtration Rate 47.6, Glucose Level 92, Calcium Level 8.3L Murali Allen MD Jun 19, 2019 20:10
--- NOTE | 2019-06-20 09:34 | Discharge Summary ---
Discharge Summary Discharge Summary _ DATE OF ADMISSION: 06/11/2019 DATE OF DISCHARGE: 06/19/2019 DISCHARGED BY: Dr Villafuerte REASON FOR ADMISSION: 63 years old male with history of COPD, chronic kidney disease, schizophrenia, anxiety, [facility], presented to emergency department with chief complaint of agitation. Patient became aggressive at the facility, pigmented he took cane and try to cut his arm. Staff was called 911 , and patient was brought for evaluation. Upon evaluation vital signs were stable. Urinalysis revealed evidence of urinary tract infection. No leukocytosis, hemoglobin 12.1, hematocrit 37. BUN 16, creatinine 1.6 with GFR 44.2. Patient subsequently admitted for further management. CONSULTANTS: research center director Dr. Nguyen pulmonary Dr Allen ID specialist Dr. Underwood icing and glaze maker/oncologist Dr. Manriquez psychiatrist Dr. Way [facility] COURSE: Patient admitted to medical surgical floor. Urine culture revealed Pseudomonas and MRSA. Blood culture were negative. Per ID specialist, patient had pyuria and was asymptomatic. ID specialist recommended to keep patient off antibiotic , unless febrile, leukocytosis or urinary symptoms. Patient remained afebrile, no leukocytosis. Patient received dose of antibiotic in emergency department. Supplemental oxygen provided as needed to keep pulse oximetry above 92%. Nebulizing treatment with bronchodilator provided as needed. No evidence of COPD exacerbation. Hemoglobin and hematocrit were closely monitored with goal to keep hemoglobin above 7. CEA within normal limits. Stool for occult blood negative. TSH within normal limits. Current dose of levothyroxine continued. Renal parameters and electrolytes were closely monitored. Electrolytes corrected as needed. Patient with known history of chronic kidney disease stage III, given prior renal parameters. Nephrotoxins were avoided. Pulp Grinder followed. EKG revealed sinus tachycardia, otherwise normal. Patient started on low-dose of beta-betsey. Sinus tachycardia resolved. Lipid panel revealed elevated total cholesterol and LDL. Patient started on statin. Diet changed to low-fat low-cholesterol diet. Patient educated on compliance with medication and diet. Proscar and Flomax continued. Psychiatrist seen and evaluated patient. Per psychiatrist , patient had paranoid schizophrenia with acute exacerbation. Psychiatric medication regimen was optimized as per psychiatrist recommendation. Per psychiatrist, patient will benefit from inpatient psychiatric management. Patient subsequently was discharged to [facility] at [place] for further management. FINAL DIAGNOSES: Acute encephalopathy Pyuria , asymptomatic COPD Paranoid schizophrenia with acute exacerbation Anemia Chronic kidney disease stage 3 Sinus tachycardia Hypothyroidism BPH Hypercholesterolemia DISCHARGE MEDICATIONS: See Medication Reconciliation list. DISCHARGE INSTRUCTIONS: Patient was discharged to the [facility] unit at [place] for further psychiatric management. Ilene Garza NP Jun 20, 2019 09:34
== END 2019-06-19 15:04 | DRG 70 ==
LOC: EDBD 04:19 → EMR 04:39 → 4E 04:47 → EDBEDREQ 04:50 → 2E 06-14 15:50 → 4E 06-14 18:30
DX: G93.40 Encephalopathy, unspecified (principal); N17.0 Acute kidney failure with tubular necrosis; F20.0 Paranoid schizophrenia; N39.0 Urinary tract infection, site not specified; J44.1 Chronic obstructive pulmonary disease with (acute) exacerbation; N18.3 Chronic kidney disease, stage 3 (moderate); E03.9 Hypothyroidism, unspecified; N40.0 Benign prostatic hyperplasia without lower urinary tract symptoms; E78.00 Pure hypercholesterolemia, unspecified; F41.9 Anxiety disorder, unspecified; M54.5 Low back pain; Z88.0 Allergy status to penicillin; Z88.8 Allergy status to other drugs, medicaments and biological substances; D50.9 Iron deficiency anemia, unspecified; K21.9 Gastro-esophageal reflux disease without esophagitis; G40.909 Epilepsy, unspecified, not intractable, without status epilepticus; J44.9 Chronic obstructive pulmonary disease, unspecified; R45.1 Restlessness and agitation; R00.0 Tachycardia, unspecified
CPT/HCPCS: 36415; 71045; 80048; 80053; 80061; 81001; 82270; 82378; 82550; 82607; 82728; 82746; 83540; 83550; 83615; 83735; 83880; 84100; 84133; 84300; 84439; 84443; 84484; 84550; 85007; 85025; 85044; 85060; 85610; 85651; 85730; 86140; 87040; 87081; 87086; 87181; 89050; 93005; 93306; 94640; 94664; 96365; 99285; J7620